=== PATIENT | male | born 1945 | race Caucasian/White ===

== ENCOUNTER → 2016-04-03 | Outpatient (CLI) | payer BC, MEDICARE ==
[~2016-04-03] MED LIST: ALLO300T2 GT; ALLO300T2 PO; CETI10CA PO; CHOL200041 PO; FLUT12AE4 IH; FLUT16SP22 NS; LACT1CAP72 PO; LEVO500T80 PO; LISI-556 PO; LISI5TAB14 PO; LOSA25TA21 PO; MV,M1TAB4 PO; OMEG1CAP51 PO; PRAV40TA PO; PRAV40TA2 PO; PRD20T PO; RT-ALBUINH IH; VITA-37 PO
--- OUTSIDE RECORDS SUMMARY | 2016-04-03 12:05 | XMS REPORT | Continuity of Care Document ---
Author Author [facility] Organization [facility] Address Unknown Phone Unavailable Care Team Providers Care Merchandise Clerk Name Role Phone EARLENE THOMAS MD PCP Insurance Providers Payer Name Policy Number Subscriber Name Relationship [facility] [id number] Farshad Solis 18 Self / Same As Patient s Medicare [id number] Farshad Solis 18 Self / Same As Patient Advance Directives Directive Response Recorded Date/Time Advance Directives Yes 08/22/14 8:45am Health Care Power of Journalism Instructor No 08/22/14 8:45am Organ Donor Yes 08/22/14 8:45am Resuscitation Status Full Code 08/22/14 8:45am Problems No known problems or medical conditions. Medications Medication Dose Route Sig Days/Qty Instructions Order Date Discontinued Date Status Allopurinol 300 Mg GT DAILY 08/22/14 Active Lisinopril (Lisinopril 5mg) 5 Mg PO TWICE A DAY 08/22/14 Active Pravastatin Sodium 40 Mg PO DAILY 08/22/14 Active Docosahexanoic Acid/Epa Unknown Dose PO DAILY 08/22/14 Active Vitamin B Complex 1 Tab PO DAILY 08/22/14 Active Cholecalciferol (Vitamin D3) 2,000 Unit PO DAILY 08/22/14 Active Cetirizine Hcl 10 Mg PO NEEDED 08/22/14 Active Social History Social History Problem Response Recorded Date/Time Recent Foreign Travel No 08/22/2014 8:54am Smoking Status Never a Smoker 08/22/2014 8:41am Do you dip or chew tobacco? No 08/22/2014 8:41am Query Response Start Date Stop Date Smoking Status Never a Smoker Hospital Discharge Instructions No hospital discharge instructions. Plan of Care No plan of care. Functional Status No functional status results. Allergies, Adverse Reactions, Alerts Allergen Type Severity Reaction Status Last Updated Penicillins ([id number]) Allergy Mild RASH Active 12/18/08 Immunizations Name Given Type Date of Pneumonia Vaccine 11/22/12 Historical Date of Influenza Vaccine 03/24/13 Historical Vital Signs Acute Vital Signs Vital Response Date/Time Temperature (Fahrenheit) 97.0 degrees F (97.6 - 99.5) Temperature (Calculated Celsius) 36.65852 degrees C (36.4 - 37.5) Temperature Source Tympanic Pulse Rate (adult) 55 bpm (60 - 90) Respiratory Rate 20 bpm (12 - 24) O2 Sat by Pulse Oximetry 98 % (88 - 100) Blood Pressure 144/87 mm Hg Pain Pain Intensity 0 Height (Feet) 5 feet Height (Inches) 10.00 inches Height (Calculated Centimeters) 177.951069 cm Weight (Pounds) 260 pounds Weight (Calculated Grams) 264386.017 gm Weight (Calculated Kilograms) 117.102905 kilograms Calculated BMI 37.30 Results No known relevant diagnostic tests, laboratory data and/or discharge summary. Procedures Procedure Status Date Provider(s) Diagnostic colonoscopy completed 08/22/14 CHETAN WRIGHT MD Encounters Encounter Location Date/Time Registered Surgical Day Care [facility] 08/22/14 7:05am Registered Clinic [facility] 08/17/14 1:49pm
--- NOTE | 2016-04-03 12:41 | Diagnostic Imaging Report ---
INDICATION: Cough and shortness of breath for one week. Comparison study: Chest from December 26. Findings: A frontal and lateral view of the chest demonstrates the lungs to be clear. The heart, mediastinum and pulmonary vascularity are normal. Anterior osteophytes are seen within the thoracic spine. IMPRESSION: There are no acute findings. Dictated by: Dictated on workstation # [id number]
== END ==
LOC: RAD 12:01
PROVIDERS: ATTEND Nurse Practitioner Family
DX: R05 Cough (principal); R06.02 Shortness of breath
CPT/HCPCS: 71020

== ENCOUNTER 2016-05-09 11:31 | Inpatient (IN) | payer BC, MEDICARE ==
[~2016-05-09] VITALS: Ht 177.8 cm; Wt 114.9 kg
[~2016-05-09 11:31] MED LIST changes: -ALLO300T2 PO; -FLUT12AE4 IH; -FLUT16SP22 NS; -LACT1CAP72 PO; -LEVO500T80 PO; -LISI-556 PO; -LOSA25TA21 PO; -MV,M1TAB4 PO; -PRAV40TA2 PO; -PRD20T PO; -RT-ALBUINH IH
--- NOTE | 2016-05-09 11:34 | History & Physicial ---
History of Present Illness History of Present Illness Reason for visit/HPI PT ADMITTED TO THE HOSPITAL FROM CLINIC FOR DIAGNOSIS OF DYSPNEA, HYPOXEMIA WITH AN OXYGEN LEVEL OF 84% IN CLINIC AND RECURRENT PNEUMONIA WITH AT LEAST TWO RECURRENCES OF PNEUMONIA. PT REPORTS UNCONTROLLED SHORTNESS OF BREATH. Date of Admission I consulted on this patient on 05/09/16 11:33 Attending Physician Earlene Camacho MD Admitting Physician Earlene Camacho MD Consult Allergies and Home Medications Allergies Coded Allergies: meperidine (Verified Allergy, Severe, 05/09/16) Penicillins (Unverified Allergy, Mild, RASH, 12/18/08) NATO Inhibitors (Verified Adverse Reaction, Unknown, 05/09/16) COUGH ibuprofen (Unverified Adverse Reaction, Unknown, 05/09/16) Pt states Dr. Pulido told him not to take Ibuprofen after he had kidney removed d/t Cancer Home Medications Albuterol Sulfate 1 Puff Puff #1 2 PUFF IH Q4H 1 PUFF = 90 MCG Prescribed by: EARLENE CAMACHO on 05/12/161821 Allopurinol 300 Mg Tablet 300 MG PO DAILY (Reported) Cetirizine Hcl 10 Mg Capsule 10 MG PO DAILY (Reported) Cholecalciferol (Vitamin D3) 2,000 Unit Tablet 2,000 UNIT PO DAILY (Reported) Docosahexanoic Acid/Epa Unknown Strength Capsule 2,000 MG PO DAILY (Reported) TAKES 2 (1000MG) CAPSULES Fluticasone Propionate 16 Gm E[place].susp 1 SPRAY NS DAILY PRN PRN CONGESTION ( Reported) Fluticasone/Salmeterol 12 Gm Hfa.aer.ad #1 2 PUFF IH BID@08,20 Prescribed by: EARLENE CAMACHO on 05/12/161821 Lactobacillus Combo No.10 1 Each Capsule #30 1 EACH PO TID Prescribed by: EARLENE CAMACHO on 05/12/161821 Levofloxacin 500 Mg Tablet #4 500 MG PO DAILY Prescribed by: EARLENE CAMACHO on 05/12/161816 Losartan Potassium 25 Mg Tablet #30 12.5 MG PO DAILY Prescribed by: EARLENE CAMACHO on 05/12/161816 Mv,Minerals/FA/Lycopene/Ginkgo 1 Each Tablet 1 TAB PO DAILY (Reported) Pravastatin Sodium 40 Mg Tablet 40 MG PO HS (Reported) Prednisone 20 Mg Tab #22 20 MG PO DAILY Take 3 tabs(60mg)daily,decrease by 1/2 tab(10mg)every other day. Prescribed by: EARLENE CAMACHO on 05/12/161816 Vitamin B Complex 1 Tab Tablet 1 TAB PO DAILY (Reported) Past Coyyqes-Hyuduw-Huwszg Hx Patient Social History Marrital Status: Living Status: LIVES AT HOME WITH SPOUSE Employed/Student: employed Alcohol Use: Denies Use Smoking Status: Never a Smoker 2nd Hand Smoke Exposure: No Physical Abuse Screen: No Sexual Abuse: No Recent Foreign Travel: No Contact w/other who traveled: No Recent Hopitalizations: No Recent Infectious Disease Expo: No Immunizations Up To Date Date of Pneumonia Vaccine: Nov 22, 2012 Date of Influenza Vaccine: Mar 24, 2013 Seasonal Allergies Seasonal Allergies: No Surgeries HX Surgeries: Yes Respiratory Hx Respiratory Disorders: No Cardiovascular Hx Cardiovascular Disorders: No Cardiac Disorders: Hypertension Neurological Hx Neurological Disorders: No Reproductive System Hx Reproductive Disorders: No Genitourinary Hx Genitourinary Disorders: Yes Gastrointestinal Hx Gastrointestinal Disorders: No Musculoskeletal Hx Musculoskeletal Disorders: Yes Musculoskeletal Disorders: Arthritis Endocrine Hx Endocrine Disorders: No HEENT HX ENT Disorders: No Psychosocial Hx Psychiatric Problems: No Integumentary HX Skin/Integumentary Disorder: Yes Blood Transfusions Hx Blood Disorders: No Reviewed Nursing Assessment Reviewed/Agree w Nursing PMH: Yes Family Medical History Significant Family History: Heart Disease, Cancer, Hypertension Constitutional: No chills, No dizziness, fever malaise weakness EENTM: No hoarseness, No throat pain Respiratory: cough dyspnea on exertion short of breath Cardiovascular: No chest pain, No palpitations Gastrointestinal: No abdominal pain, No constipation Genitourinary: no symptoms reported Musculoskeletal: No back pain, No joint pain Skin: no symptoms reported Psychiatric/Neurological: Denies Anxiety, Denies Depressed All Other Systems Reviewed Negative Unless Noted: Yes Physical Exam Vital Signs Vital Sign - Last 12Hours 05/09/16 05/09/16 11:40 13:29 Temp 97.5 Pulse 76 Resp 20 B/P 148/87 Pulse Ox 91 O2 Delivery Room Air O2 Flow Rate 2.00 Capillary Refill : General Appearance: WD/WN Mild Distress Eyes: Bilateral Eye EOMI, Bilateral Eye Normal Inspection, Bilateral Eye PERRL HEENT: PERRL/EOMI Pharynx Normal Neck: Full Range of Motion Supple Respiratory: Chest Non Tender Crackles Decreased Breath Sounds Expiration Wheezing Cardiovascular: Regular Rate, Rhythm No Edema Gastrointestinal: Normal Bowel Sounds No Organomegaly No Pulsatile Mass Non Tender Soft Rectal: Deferred Extremity: Normal Capillary Refill Normal Inspection Normal Range of Motion Non Tender No Calf Tenderness No Pedal Edema Neurologic/Psychiatric: Alert Oriented x3 No Motor/Sensory Deficits Normal Mood/Affect Skin: Normal Color Warm/Dry Lymphatic: No Adenopathy Assessment/Plan Assessment and Plan PNEUMONIA COUGH HYPOXEMIA HYPERTENSION NATO-INHIBITOR INDUCED COUGH PT ADMITTED WITH HYPOXEMIA - STARTED ON OXYGEN, CONTINUE WITH PNEUMONIA PROTOCOL , BREATHING TREATMENTS, MUCINEX. HYPOXEMIA - MONITOR SYMPTOMS.CONTINUE WITH OXYGEN HTN - STOP NATO-INHIBITOR - START ON LOSARTAN Admission Diagnosis PNEUMONIA COUGH HYPOXEMIA HYPERTENSION NATO-INHIBITOR INDUCED COUGH EARLENE CAMACHO MD May 09, 2016 11:34
[2016-05-09 11:40] VITALS: BP 148/87
[2016-05-09] MEDS ORDERED: RT-ADVAIR HFA 115/21 MCG PER PUFF IH SCH (11:45)
--- OUTSIDE RECORDS SUMMARY | 2016-05-09 11:54 | XMS REPORT | Continuity of Care Document ---
Author Author [facility] Organization [facility] Address Unknown Phone Unavailable Care Team Providers Care Lens Dotter Name Role Phone EARLENE THOMAS MD PCP Insurance Providers Payer Name Policy Number Subscriber Name Relationship [facility] [id number] Farshad Solis 18 Self / Same As Patient s Medicare [id number] Farshad Solis 18 Self / Same As Patient Advance Directives Directive Response Recorded Date/Time Advance Directives Yes 08/22/14 8:45am Health Care Power of Corporate Safety Coordinator No 08/22/14 8:45am Organ Donor Yes 08/22/14 [...] Type Severity Reaction Status Last Updated Penicillins ([id number]) Allergy Mild RASH Active 12/18/08 Immunizations Name Given Type Date of Pneumonia Vaccine 11/22/12 Historical Date of Influenza Vaccine 03/24/13 Historical Vital Signs Acute Vital Signs Vital Response Date/Time Temperature (Fahrenheit) 97.0 degrees F (97.6 - 99.5) Temperature (Calculated Celsius) 36.76815 degrees C (36.4 - 37.5) Temperature Source Tympanic Pulse Rate (adult) 55 bpm (60 - 90) Respiratory Rate 20 bpm (12 - 24) O2 Sat by Pulse Oximetry 98 % (88 - 100) Blood Pressure 144/87 mm Hg Pain Pain Intensity 0 Height (Feet) 5 feet Height (Inches) 10.00 inches Height (Calculated Centimeters) 177.156804 cm Weight (Pounds) 260 pounds Weight (Calculated Grams) 508645.017 gm Weight (Calculated Kilograms) 117.108786 kilograms Calculated BMI 37.30 Results No known relevant diagnostic tests, laboratory data and/or discharge summary. Procedures Procedure Status Date Provider(s) Diagnostic colonoscopy completed 08/22/14 CHETAN WRIGHT MD Encounters Encounter Location Date/Time Registered Surgical Day Care [facility] 08/22/14 7:05am Registered Clinic [facility] 08/17/14 1:49pm
[2016-05-09] MEDS ORDERED: methylPREDNISolone 125 MG (Solu-MEDROL) VIAL IM NR (11:57)
[2016-05-09] MEDS ORDERED: LISI-556 PO (12:44)
[2016-05-09] MEDS ORDERED: PRAV40TA2 PO (12:44)
[2016-05-09] MEDS ORDERED: ALLO300T2 PO (12:44)
[2016-05-09] MEDS ORDERED: MV,M1TAB4 PO (13:10)
[2016-05-09] MEDS ORDERED: FLUT16SP22 NS (13:10)
[2016-05-09] MEDS: LEVOFLOXACIN 750 MG/150 ML IV 150 ML IV SCH (13:13)
[2016-05-09 13:18] LABS: BASOPHILS # (AUTO) 0.1 10^3/uL (0.0-0.1); BASOPHILS % (AUTO) 1 % (0-10); EOSINOPHILS # (AUTO) 0.5 10^3/uL (0.0-0.3); EOSINOPHILS % (AUTO) 6 % (0-10); LYMPHOCYTES # (AUTO) 2.2 X 10^3 (1.0-4.0); LYMPHOCYTES % (AUTO) 24 % (12-44); MEAN CORPUSCULAR HEMOGLOBIN 32 PG (25-34); MEAN CORPUSCULAR HGB CONC 34 G/DL (32-36); MEAN CORPUSCULAR VOLUME 93 FL (80-99); MEAN PLATELET VOLUME 11.7 FL (7.4-10.4); MONOCYTES # (AUTO) 0.6 X 10^3 (0.0-1.0); MONOCYTES % (AUTO) 6 % (0-12); NEUTROPHILS % (AUTO) 64 % (42-75); PLATELET COUNT 166 10^3/uL (130-400); RED BLOOD COUNT 4.71 10^6/uL (4.35-5.85); RED CELL DISTRIBUTION WIDTH 13.9 % (10.0-14.5); WHITE BLOOD COUNT 9.4 10^3/uL (4.3-11.0)
[2016-05-09 13:33] LABS: ALBUMIN 4.3 G/DL (3.2-4.5); BILIRUBIN,TOTAL 0.4 MG/DL (0.1-1.0); CALCIUM 9.8 MG/DL (8.5-10.1); CREATININE SERUM 1.36 MG/DL (0.60-1.30); POTASSIUM 5.2 MMOL/L (3.6-5.0); TOTAL PROTEIN 7.9 G/DL (6.4-8.2)
--- NOTE | 2016-05-09 13:56 | Diagnostic Imaging Report ---
INDICATION: Difficulty breathing past week. Comparison with 04/03/2016. FINDINGS: The lungs are well-aerated. There is no air trapping. There are no infiltrates. Heart is not enlarged. No hilar adenopathy. No pulmonary edema. No pneumothorax or pleural effusions. No bony abnormalities. IMPRESSION: Normal PA and lateral chest. No significant change since previous exam. Dictated by: Dictated on workstation # [id number]
[2016-05-09] MEDS ORDERED: RT-ALBUTEROL/IPRATROPIUM 3 ML (DUONEB) VIAL INH PRN (14:15)
[2016-05-09] MEDS: RT-ADVAIR HFA 115/21 MCG PER PUFF IH SCH ×2 (15:04→20:12)
[2016-05-09 15:30] VITALS: BP 133/78
[2016-05-09] MEDS: NS IV 1000 ML 1,000 ML IV SCH (17:30)
[2016-05-09] MEDS: methylPREDNISolone 125 MG (Solu-MEDROL) VIAL IVP SCH ×2 (17:30→23:49)
[2016-05-09 19:55] VITALS: BP 161/77
[2016-05-09] MEDS: RT-ALBUTEROL/IPRATROPIUM 3 ML (DUONEB) VIAL INH SCH (20:11)
[2016-05-09] MEDS: CEFEPIME INJECTION 2,000 MG in NS (IVPB) 50 ML IV SCH (20:23)
[2016-05-10] VITALS: BP 141/65
[2016-05-10] MEDS: NS IV 1000 ML 1,000 ML IV SCH ×4 (01:00→21:05)
[2016-05-10 04:00] VITALS: BP 129/59
[2016-05-10 04:31] LABS: MEAN PLATELET VOLUME 12.4 FL (7.4-10.4); RED BLOOD COUNT 4.38 10^6/uL (4.35-5.85); RED CELL DISTRIBUTION WIDTH 13.7 % (10.0-14.5); WHITE BLOOD COUNT 8.2 10^3/uL (4.3-11.0)
[2016-05-10 04:49] LABS: CALCIUM 9.1 MG/DL (8.5-10.1); CREATININE SERUM 1.36 MG/DL (0.60-1.30); POTASSIUM 5.3 MMOL/L (3.6-5.0)
[2016-05-10] MEDS: methylPREDNISolone 125 MG (Solu-MEDROL) VIAL IVP SCH ×3 (05:25→17:27)
[2016-05-10] MEDS: RT-ADVAIR HFA 115/21 MCG PER PUFF IH SCH ×2 (07:59→19:51)
[2016-05-10] MEDS: RT-ALBUTEROL/IPRATROPIUM 3 ML (DUONEB) VIAL INH SCH ×3 (07:59→19:50)
[2016-05-10 08:13] VITALS: BP 138/63
--- NOTE | 2016-05-10 08:25 | Diagnostic Imaging Report ---
INDICATION: Pneumonia and cough with a history of prostate and renal carcinoma. Comparison made with prior examination of 05/09/2016. FINDINGS: The heart size is normal. Mediastinum is unremarkable. There is no pleural effusion, pneumothorax, or pneumonia. IMPRESSION: No acute cardiopulmonary abnormality. Dictated by: Dictated on workstation # [id number]
--- NOTE | 2016-05-10 09:11 | Progress Note (SOAP) ---
Subjective Subjective/Events-last exam patient complaining of coughing, congestion, shortness of breath, weakness, and spitting up green phlegm. Patient has been treated outpatient for 2 weeks. Patient got worse. Patient failure to outpatient treatment. Lungs has congestion on the right side more than the left. Patient clinically with pneumonia Objective Exam Vital Signs Date Time Temp Pulse Resp B/P Pulse Ox O2 Delivery O2 Flow Rate FiO2 05/10/16 08:13 97.9 86 18 138/63 94 Nasal Cannula 2.00 05/10/16 08:01 95 2.00 05/10/16 04:00 96.4 74 20 129/59 95 Nasal Cannula 2.00 05/10/16 00:00 96.4 78 20 141/65 95 Nasal Cannula 2.00 05/09/16 21:20 94 Nasal Cannula 2.00 05/09/16 20:12 94 2.00 05/09/16 19:55 96.6 80 18 161/77 94 Nasal Cannula 2.00 05/09/16 15:30 95.9 91 18 133/78 94 Room Air 05/09/16 15:04 95 2.00 05/09/16 14:10 95 05/09/16 13:29 95 Nasal Cannula 2.00 05/09/16 11:40 97.5 76 20 148/87 91 Room Air I & O 05/10/16 07:00 Intake Total 3700 ml Output Total 3075 ml Balance 625 ml Capillary Refill : General Appearance: No Apparent Distress WD/WN HEENT: Normal ENT Inspection Neck: Normal Inspection Respiratory: Other (congestion) Cardiovascular: Regular Rate, Rhythm Results Lab Laboratory Tests 05/09/16 12:48: Alanine Aminotransferase (ALT/SGPT) 27, Albumin 4.3, Alkaline Phosphatase 74, Anion Gap 8, Aspartate Amino Transf (AST/SGOT) 28, BUN/Creatinine Ratio 15, Basophils # (Auto) 0.1, Basophils (%) (Auto) 1, Blood Urea Nitrogen 21H, Calcium Level 9.8, Carbon Dioxide Level 27, Chloride Level 103, Creatinine 1.36H , Eosinophils # (Auto) 0.5H, Eosinophils (%) (Auto) 6, Estimat Glomerular Filtration Rate 52, Glucose Level 94, Hematocrit 44, Hemoglobin 15.1, Lactic Acid Level 1.2, Lymphocytes # (Auto) 2.2, Lymphocytes (%) (Auto) 24, Mean Corpuscular Hemoglobin 32, Mean Corpuscular Hemoglobin Concent 34, Mean Corpuscular Volume 93, Mean Platelet Volume 11.7H, Monocytes # (Auto) 0.6, Monocytes (%) (Auto) 6, Neutrophils # (Auto) 6.0, Neutrophils (%) (Auto) 64, Platelet Count 166, Potassium Level 5.2H, Red Blood Count 4.71, Red Cell Distribution Width 13.9, Sodium Level 138, Total Bilirubin 0.4, Total Protein 7.9, White Blood Count 9.4 05/10/16 03:46: Anion Gap 13, BUN/Creatinine Ratio 19, Blood Urea Nitrogen 26H, Calcium Level 9.1, Carbon Dioxide Level 19L, Chloride Level 104, Creatinine 1.36H, Estimat Glomerular Filtration Rate 52, Glucose Level 152H, Potassium Level 5.3H, Sodium Level 136 05/10/16 03:56: Hematocrit 41, Hemoglobin 14.1, Mean Corpuscular Hemoglobin 32, Mean Corpuscular Hemoglobin Concent 35, Mean Corpuscular Volume 93, Mean Platelet Volume 12.4H, Platelet Count 159, Red Blood Count 4.38, Red Cell Distribution Width 13.7, White Blood Count 8.2 Microbiology 05/09/16 Gram Stain - Final, Resulted 05/09/16 Sputum Culture - Preliminary, Resulted Usual/normal sherrie isolated. Assessment/Plan Assessment/Plan Assess & Plan/Chief Complaint pneumonia. Short of breath. Bronchitis Diagnosis/Problems: Clinical Quality Measures DVT/VTE Risk/Contraindication: Risk Factor Score Per Nursin RFS Level Per Nursing on Admit: 3=High JIN FONTANEZ DO May 10, 2016 09:11
[2016-05-10] MEDS: LOSARTAN 25 MG (COZAAR) TAB PO SCH (09:23)
[2016-05-10] MEDS: ENOXAPARIN 40 MG/0.4 ML (LOVENOX) SYR SC SCH (09:24)
[2016-05-10] MEDS: CEFEPIME INJECTION 2,000 MG in NS (IVPB) 50 ML IV SCH ×2 (09:24→20:08)
--- NOTE | 2016-05-10 09:30 | Diagnostic Imaging Report ---
PROCEDURE: CT chest without contrast. TECHNIQUE: Multiple contiguous axial images were obtained through the chest without the use of intravenous contrast. INDICATION: Shortness of breath and cough. History of prostate and kidney cancer. Comparison is made with prior examination from 01/07/13. FINDINGS: There are no discrete pulmonary nodules, masses or infiltrates. There is no pleural or pericardial fluid. There is no pneumothorax. The heart size is normal. There is no pathologically enlarged adenopathy in the chest. There is minimal coronary artery calcification. There are degenerative changes in the spine. The right kidney is surgically absent. There are stones in the gallbladder. Remainder of the intra-abdominal structures are unremarkable. IMPRESSION: Mild coronary artery calcifications. Cholelithiasis. Degenerative changes in the spine. Otherwise unremarkable CT chest Dictated by: Dictated on workstation # [id number]
[2016-05-10] MEDS: OMEGA 3 (FISH OIL) 1000 MG CAP PO SCH (09:37)
[2016-05-10] MEDS: LEVOFLOXACIN 750 MG/150 ML IV 150 ML IV SCH (12:13)
[2016-05-10 12:56] VITALS: BP 158/72
[2016-05-10] MEDS: FLUTICASONE NASAL SPRAY (FLONASE) 16 GM BTL NS PRN (14:02)
[2016-05-10] MEDS ORDERED: HYDROcodone/APAP 5 MG/325 MG (LORTAB) TAB PO PRN (14:45)
[2016-05-10 16:00] VITALS: BP 145/69
[2016-05-10 20:00] VITALS: BP 159/70
[2016-05-10] MEDS: SIMvastatin 20 MG (ZOCOR) TAB PO SCH (20:08)
[2016-05-10] MEDS ORDERED: lisINopril 5 MG (PRINIVIL) TABLET PO SCH (21:00)
[2016-05-11] VITALS: BP 121/57
[2016-05-11] MEDS: NS IV 1000 ML 1,000 ML IV SCH ×3 (04:58→23:19)
[2016-05-11 05:17] LABS: MEAN PLATELET VOLUME 12.2 FL (7.4-10.4); RED BLOOD COUNT 4.13 10^6/uL (4.35-5.85); RED CELL DISTRIBUTION WIDTH 14.3 % (10.0-14.5); WHITE BLOOD COUNT 18.6 10^3/uL (4.3-11.0)
[2016-05-11 05:34] LABS: CALCIUM 8.6 MG/DL (8.5-10.1); CREATININE SERUM 1.4 MG/DL (0.60-1.30); POTASSIUM 5.2 MMOL/L (3.6-5.0)
[2016-05-11] MEDS: methylPREDNISolone 125 MG (Solu-MEDROL) VIAL IVP SCH ×5 (06:19→23:20)
[2016-05-11 08:07] VITALS: BP 135/67
[2016-05-11] MEDS: CEFEPIME INJECTION 2,000 MG in NS (IVPB) 50 ML IV SCH ×2 (08:31→20:40)
[2016-05-11] MEDS: VITAMIN D3 1,000 UNITS (CHOLECALCIFEROL) TABLET PO SCH (08:32)
[2016-05-11] MEDS: LOSARTAN 25 MG (COZAAR) TAB PO SCH (08:32)
[2016-05-11] MEDS: OMEGA 3 (FISH OIL) 1000 MG CAP PO SCH (08:32)
[2016-05-11] MEDS: ALLOPURINOL 300 MG (ZYLOPRIM) TAB PO SCH (08:32)
[2016-05-11] MEDS: ENOXAPARIN 40 MG/0.4 ML (LOVENOX) SYR SC SCH (08:33)
--- NOTE | 2016-05-11 09:07 | Progress Note (SOAP) ---
Subjective Subjective/Events-last exam patient feeling better today. Spitting up yellow stuff instead of brain. Chest pain with coughing is less. CAT scan of chest shows no pneumonia. Bronchitis. CAT scan shows gallstones. Lung congestion is improving Objective Exam Vital Signs Date Time Temp Pulse Resp B/P Pulse Ox O2 Delivery O2 Flow Rate FiO2 05/11/16 08:07 97.8 93 22 135/67 95 Nasal Cannula 2.00 05/11/16 07:40 Nasal Cannula 2.00 05/11/16 07:01 2.00 05/11/16 00:00 97.9 88 20 121/57 94 Nasal Cannula 2.00 05/10/16 21:00 94 Nasal Cannula 2.00 05/10/16 20:00 97.7 112 20 159/70 99 Nasal Cannula 2.00 05/10/16 19:56 96 2.00 05/10/16 19:51 99 2.00 05/10/16 16:00 96.9 92 20 145/69 95 Nasal Cannula 2.00 05/10/16 14:13 96 2.00 05/10/16 12:56 98.6 108 20 158/72 96 Nasal Cannula 2.00 I & O 05/11/16 07:00 Intake Total 5130 ml Output Total 3000 ml Balance 2130 ml Capillary Refill : Less Than 3 Seconds General Appearance: No Apparent Distress WD/WN HEENT: Normal ENT Inspection Neck: Full Range of Motion Normal Inspection Respiratory: Chest Non Tender No Accessory Muscle Use No Respiratory Distress Other (congestion improving) Cardiovascular: Regular Rate, Rhythm Other (has melanoma) Gastrointestinal: non tender soft Results Lab Laboratory Tests 05/11/16 04:21 Laboratory Tests 05/11/16 04:21: Anion Gap 9, BUN/Creatinine Ratio 19, Blood Urea Nitrogen 26H, Calcium Level 8.6 , Carbon Dioxide Level 19L, Chloride Level 111H, Creatinine 1.40H, Estimat Glomerular Filtration Rate 50, Glucose Level 147H, Hematocrit 39L, Hemoglobin 13.2L, Mean Corpuscular Hemoglobin 32, Mean Corpuscular Hemoglobin Concent 34, Mean Corpuscular Volume 95, Mean Platelet Volume 12.2H, Platelet Count 152, Potassium Level 5.2H, Red Blood Count 4.13L, Red Cell Distribution Width 14.3, Sodium Level 139, White Blood Count 18.6H Microbiology 05/09/16 Blood Culture - Preliminary, Resulted No growth 05/09/16 Gram Stain - Final, Resulted 05/09/16 Sputum Culture - Preliminary, Resulted Usual/normal sherrie isolated. Assessment/Plan Assessment/Plan Assess & Plan/Chief Complaint pneumonia. Short of breath. Bronchitis. . To see where 05/11/16. Bronchitis. Short of breath. Gallstones. Patient in the right direction. White blood cell count 18,000 due to Solu-Medrol Diagnosis/Problems: Clinical Quality Measures DVT/VTE Risk/Contraindication: Risk Factor Score Per Nursin RFS Level Per Nursing on Admit: 3=High JIN FONTANEZ DO May 11, 2016 09:06
[2016-05-11] MEDS: RT-ALBUTEROL/IPRATROPIUM 3 ML (DUONEB) VIAL INH SCH ×3 (11:16→20:12)
[2016-05-11] MEDS: RT-ADVAIR HFA 115/21 MCG PER PUFF IH SCH ×2 (11:16→20:12)
[2016-05-11] MEDS: LEVOFLOXACIN 750 MG/150 ML IV 150 ML IV SCH (12:52)
[2016-05-11] MEDS: FLUTICASONE NASAL SPRAY (FLONASE) 16 GM BTL NS PRN (15:48)
[2016-05-11 16:29] VITALS: BP 146/63
[2016-05-11] MEDS: SIMvastatin 20 MG (ZOCOR) TAB PO SCH (20:40)
[2016-05-12] VITALS: BP 115/70
[2016-05-12 04:50] LABS: BASOPHILS % (AUTO) 0 % (0-10); EOSINOPHILS % (AUTO) 0 % (0-10); LYMPHOCYTES # (AUTO) 1.2 X 10^3 (1.0-4.0); LYMPHOCYTES % (AUTO) 6 % (12-44); MEAN CORPUSCULAR HEMOGLOBIN 32 PG (25-34); MEAN CORPUSCULAR HGB CONC 34 G/DL (32-36); MEAN CORPUSCULAR VOLUME 95 FL (80-99); MEAN PLATELET VOLUME 12.6 FL (7.4-10.4); MONOCYTES # (AUTO) 0.3 X 10^3 (0.0-1.0); MONOCYTES % (AUTO) 1 % (0-12); NEUTROPHILS # (AUTO) 17.8 X 10^3 (1.8-7.8); NEUTROPHILS % (AUTO) 92 % (42-75); PLATELET COUNT 167 10^3/uL (130-400); RED BLOOD COUNT 4.28 10^6/uL (4.35-5.85); RED CELL DISTRIBUTION WIDTH 14.5 % (10.0-14.5); WHITE BLOOD COUNT 19.2 10^3/uL (4.3-11.0)
[2016-05-12] MEDS: methylPREDNISolone 125 MG (Solu-MEDROL) VIAL IVP SCH ×3 (05:07→17:21)
[2016-05-12 05:11] LABS: CALCIUM 8.3 MG/DL (8.5-10.1); CREATININE SERUM 1.38 MG/DL (0.60-1.30); POTASSIUM 4.3 MMOL/L (3.6-5.0)
[2016-05-12 05:17] LABS: BAND NEUTROPHILS 6 %; LYMPHOCYTES % (MANUAL) 5 %; NEUTROPHILS % (MANUAL) 88 %
[2016-05-12] MEDS: NS IV 1000 ML 1,000 ML IV SCH ×2 (07:49→17:48)
[2016-05-12] MEDS: ALLOPURINOL 300 MG (ZYLOPRIM) TAB PO SCH (07:50)
[2016-05-12] MEDS: ENOXAPARIN 40 MG/0.4 ML (LOVENOX) SYR SC SCH (07:50)
[2016-05-12] MEDS: OMEGA 3 (FISH OIL) 1000 MG CAP PO SCH (07:50)
[2016-05-12] MEDS: CEFEPIME INJECTION 2,000 MG in NS (IVPB) 50 ML IV SCH (07:50)
[2016-05-12] MEDS: VITAMIN D3 1,000 UNITS (CHOLECALCIFEROL) TABLET PO SCH (07:51)
[2016-05-12] MEDS: LOSARTAN 25 MG (COZAAR) TAB PO SCH (07:51)
[2016-05-12 08:00] VITALS: BP 123/61
[2016-05-12] MEDS: RT-ALBUTEROL/IPRATROPIUM 3 ML (DUONEB) VIAL INH SCH ×2 (08:17→13:32)
[2016-05-12] MEDS: RT-ADVAIR HFA 115/21 MCG PER PUFF IH SCH (08:23)
[2016-05-12] MEDS ORDERED: CATHETER FLUSH 10 ML SYR IV PRN (11:15)
[2016-05-12] MEDS: LEVOFLOXACIN 750 MG/150 ML IV 150 ML IV SCH (12:22)
[2016-05-12 16:29] VITALS: BP 161/70
[2016-05-12] MEDS: FLUTICASONE NASAL SPRAY (FLONASE) 16 GM BTL NS PRN (17:22)
--- NOTE | 2016-05-12 18:13 | Discharge Summary ---
Diagnosis/Chief Complaint Date of Admission May 09, 2016 at 11:50 Date of Discharge Discharge Date: May 12, 2016 Admission Diagnosis Admission Diagnosis PNEUMONIA COUGH HYPOXEMIA HYPERTENSION NATO-INHIBITOR INDUCED COUGH Discharge Diagnosis PNEUMONIA - HAEMOPHILUS INFLUENZAE COUGH HYPOXEMIA HYPERTENSION NATO-INHIBITOR INDUCED COUGH Reason Hospital Visit PT WAS ADMITTED TO THE HOSPITAL WITH DYSPNEA, HYPOXEMIA- AFTER TWO RECURRENT PNEUMONIA EPISODES. Discharge Summary Discharge Physical Examination Allergies: Coded Allergies: meperidine (Verified Allergy, Severe, 05/09/16) Penicillins (Unverified Allergy, Mild, RASH, 12/18/08) NATO Inhibitors (Verified Adverse Reaction, Unknown, 05/09/16) COUGH ibuprofen (Unverified Adverse Reaction, Unknown, 05/09/16) Pt states Dr. Pulido told him not to take Ibuprofen after he had kidney removed d/t Cancer Vitals & I&Os Vital Signs Date Time Temp Pulse Resp B/P Pulse Ox O2 Delivery O2 Flow Rate FiO2 05/12/16 18:37 05/12/16 16:29 98.4 80 16 95 Room Air 05/12/16 00:00 2.00 General Appearance: Alert, Oriented X3, Cooperative, No Acute Distress HEENT: Atraumatic, PERRLA Respiratory: Clear to Auscultation Cardiovascular: Regular Rate Abdominal: Normal Bowel Sounds, Soft, No Tenderness Extremities: No Clubbing Skin: No Rashes Neuro: Normal Gait, Strength at 5/5 X4 Ext, Cranial Nerves 3-12 NL Psych/Mental Status: Mental Status NL, Mood NL Hospital Course PNEUMONIA COUGH HYPOXEMIA HYPERTENSION NATO-INHIBITOR INDUCED COUGH PT ADMITTED WITH HYPOXEMIA - STARTED ON OXYGEN, CONTINUED WITH PNEUMONIA PROTOCOL, BREATHING TREATMENTS, MUCINEX. HAEMOPHILUS INFLUENZAE POSITIVE - CONTINUE WITH 4 DAYS OF LEVAQUIN OUTPATIENT. HYPOXEMIA - RESOLVED - PT OFF OF OXYGEN ON DISCHARGE HTN - STOP NATO-INHIBITOR - START ON LOSARTAN OUTPATIENT. Discharge Instructions to patient/family Please see electonic discharge instructions given to patient. Discharge Medications Reviewed and agree with Discharge Medication list on patient's Discharge Instruction sheet Clinical Quality Measures DVT/VTE Risk/Contraindication: Risk Factor Score Per Nursin RFS Level Per Nursing on Admit: 3=High EARLENE THOMAS MD May 12, 2016 18:13
[2016-05-12] MEDS ORDERED: PRD20T PO (18:17)
[2016-05-12] MEDS ORDERED: LOSA25TA21 PO (18:17)
[2016-05-12] MEDS ORDERED: LEVO500T80 PO (18:17)
[2016-05-12] MEDS ORDERED: RT-ALBUINH IH (18:22)
[2016-05-12] MEDS ORDERED: FLUT12AE4 IH (18:22)
[2016-05-12] MEDS ORDERED: LACT1CAP72 PO (18:22)
--- NOTE | 2016-05-12 18:22 | Discharge Inst-Complex ---
PDI Med Rec & Follow Up Appt. New Medications: Albuterol Sulfate (Proair Hfa) 1 Puff Puff 2 PUFF IH Q4H 1 PUFF = 90 MCG #1 INHALER Lactobacillus Combo No.10 (Probiotic) 1 Each Capsule 1 EACH PO TID #30 CAP Levofloxacin (Levofloxacin) 500 Mg Tablet 500 MG PO DAILY #4 TAB Prednisone (Prednisone) 20 Mg Tab 20 MG PO DAILY Take 3 tabs(60mg)daily,decrease by 1/2 tab(10mg)every other day. #22 TAB Fluticasone/Salmeterol (Advair Hfa 115-21 Mcg Inhaler) 12 Gm Hfa.aer.ad 2 PUFF IH BID@08,20 #1 GM Losartan Potassium (Losartan Potassium) 25 Mg Tablet 12.5 MG PO DAILY #30 Ref 3 TAB Continued Medications: Allopurinol (Allopurinol) 300 Mg Tablet 300 MG PO DAILY TAB Cetirizine Hcl (Zyrtec) 10 Mg Capsule 10 MG PO DAILY CAP Cholecalciferol (Vitamin D3) (D3 Dots) 2,000 Unit Tablet 2000 UNIT PO DAILY TAB Docosahexanoic Acid/Epa (Fish Oil 1,000 Mg Softgel) Unknown Strength Capsule 2000 MG PO DAILY TAKES 2 (1000MG) CAPSULES CAP Fluticasone Propionate (Fluticasone Propionate) 16 Gm [place].susp 1 SPRAY NS DAILY PRN CONGESTION EA Mv,Minerals/FA/Lycopene/Ginkgo (One Daily Men's 50+ Tablet) 1 Each Tablet 1 TAB PO DAILY TAB Pravastatin Sodium (Pravastatin Sodium) 40 Mg Tablet 40 MG PO HS TAB Vitamin B Complex (B Complete) 1 Tab Tablet 1 TAB PO DAILY TAB Discontinued Medications: Lisinopril (Lisinopril) 5 Mg Tablet 5 MG PO BID TAB Patient Instructions: follow up appt on 05/20/16 @3pm start on a probiotic three times a day like [employer] to help prevent diarrhea while on the antibiotic drink 16 ounces of water when taking antibiotic Activity, Diet and PDI Resume Normal Activity: Yes (do not go back to work until released by dr. bhatti) Discharge Diet: Regular Diet Diet for 24 Hours: No One [place] Foods, No Spicy Foods Drink 6-8 Glasses of Fluid/Day: Yes Return to The Hospital For: any concern for worsening symptoms - Symptoms to Reoprt to : Fever Over 101 Degrees F, Pain/Pressure in Chest, Pain/Pressure in Shoulder, Diarrhea(Persistant), Shortness of Breath EARLENE BHATTI MD May 12, 2016 18:20
== END 2016-05-12 18:37 | disposition home or self-care (01) | DRG 195 ==
LOC: 4TH 11:50
PROVIDERS: ADMIT Family Medicine; ATTEND Family Medicine
DX: J18.9 Pneumonia, unspecified organism (principal); R09.02 Hypoxemia; J40 Bronchitis, not specified as acute or chronic; K80.20 Calculus of gallbladder without cholecystitis without obstruction; I10 Essential (primary) hypertension; M19.90 Unspecified osteoarthritis, unspecified site; R05 Cough
CPT/HCPCS: 36415; 71020; 71250; 80048; 80053; 83605; 85007; 85025; 85027; 87040; 87070; 87077; 87205; 94640; 94664; 94760

== ENCOUNTER → 2016-07-10 | Outpatient (CLI) | payer BC, MEDICARE ==
[~2016-07-10] MED LIST changes: +ALLO300T2 PO; +FLUT12AE4 IH; +FLUT16SP22 NS; +LACT1CAP72 PO; +LEVO500T80 PO; +LISI-556 PO; +LOSA25TA21 PO; +MV,M1TAB4 PO; +PRAV40TA2 PO; +PRD20T PO; +RT-ALBUINH IH
--- NOTE | 2016-07-11 10:56 | ECHOCARDIOGRAPHY REPORT ---
DATE OF SERVICE: 07/10/2016 PROCEDURE: Two-dimensional echocardiogram. REFERRING PHYSICIAN: Dr. Camacho. MEASUREMENT: LVID end diastolic 4.7, IVS thickness 1.0, LVPW thickness 1.0, left atrial diameter 3.8, ejection fraction 60%. FINDINGS: 1. Technical quality is good. 2. The left ventricle is normal in size with normal contractility. Systolic function appeared to be normal. Estimated ejection fraction 60%. 3. The left atrium is normal in size. No clots or thrombus were seen within the left atrium. 4. The right atrium and right ventricle are normal in size. No clots or thrombus were seen within the right side. 5. The mitral valve is calcified with mild mitral regurgitation noted by color Doppler flow. No mitral valve prolapse. No mitral valve stenosis. 6. The aortic valve is heavily calcified. Doppler across the aortic valve estimated the peak gradient of 47 mmHg, mean gradient of 25 mmHg, calculated valve area of 1.3-1.8 sq cm, which is mild to moderate aortic valve stenosis. Color Doppler flow across the aortic valve showed moderate aortic regurgitation. 7. The tricuspid valve is normal in morphology with mild tricuspid regurgitation noted by color Doppler flow. Doppler across the tricuspid valve estimates pulmonary artery pressure of 20 plus right atrial pressure. 8. The pulmonic valve is functioning normally. 9. No pericardial effusion. CONCLUSION: 1. Normal left ventricular size and systolic function. Estimated ejection fraction 60%. 2. Mild to moderate aortic valve stenosis, moderate aortic regurgitation. Slight deterioration compared to the study of May 2015. 3. Mild mitral and tricuspid regurgitation. 4. Estimated pulmonary artery pressure of 30 mmHg. Job ID: [id number] DocumentID: [id number] Dictated Date: 07/10/2016 18:57:32 Flight Steward Date: 07/11/2016 09:52:28 Dictated By: HELLEN MUNSON MD
== END ==
LOC: CARD 11:20
PROVIDERS: ATTEND Internal Medicine Cardiovascular Disease
DX: I35.0 Nonrheumatic aortic (valve) stenosis (principal); I10 Essential (primary) hypertension; E78.2 Mixed hyperlipidemia; I34.0 Nonrheumatic mitral (valve) insufficiency
CPT/HCPCS: 93306

== ENCOUNTER 2018-08-30 19:29 | Emergency (ER) | payer MEDICARE, OTHER ==
[~2018-08-30] VITALS: Ht 177.8 cm; Wt 114.8 kg
[~2018-08-30 19:29] MED LIST changes: -LOSA25TA21 PO; +LOSA25TA41 PO
[2018-08-30] MEDS ORDERED: NS IV 1000 ML 1,000 ML IV ONE (19:47)
[2018-08-30 19:54] LABS: BASOPHILS % (AUTO) 0 % (0-10); EOSINOPHILS # (AUTO) 0.1 10^3/uL (0.0-0.3); EOSINOPHILS % (AUTO) 0 % (0-10); HEMATOCRIT 42 % (40-54); HEMOGLOBIN 14.5 G/DL (13.3-17.7); LYMPHOCYTES # (AUTO) 1.6 X 10^3 (1.0-4.0); LYMPHOCYTES % (AUTO) 11 % (12-44); MEAN CORPUSCULAR HEMOGLOBIN 33 PG (25-34); MEAN CORPUSCULAR HGB CONC 34 G/DL (32-36); MEAN CORPUSCULAR VOLUME 96 FL (80-99); MONOCYTES # (AUTO) 0.9 X 10^3 (0.0-1.0); MONOCYTES % (AUTO) 6 % (0-12); NEUTROPHILS # (AUTO) 12.5 X 10^3 (1.8-7.8); NEUTROPHILS % (AUTO) 83 % (42-75); PLATELET COUNT 136 10^3/uL (130-400); RED CELL DISTRIBUTION WIDTH 13.9 % (10.0-14.5)
[2018-08-30] MEDS ORDERED: fentaNYL INJECTION 100 MCG/2 ML AMP IVP STA (20:01)
[2018-08-30 20:06] LABS: ALBUMIN 4.2 GM/DL (3.2-4.5); BILIRUBIN,TOTAL 0.5 MG/DL (0.1-1.0); CALCIUM 9.4 MG/DL (8.5-10.1); CREATININE SERUM 1.42 MG/DL (0.60-1.30); POTASSIUM 4.2 MMOL/L (3.6-5.0); TOTAL PROTEIN 7.8 GM/DL (6.4-8.2)
[2018-08-30 20:08] LABS: BILIRUBIN,URINE NEGATIVE (NEGATIVE); CLARITY,URINE MUCOUS; COLOR,URINE YELLOW; GLUCOSE, URINE (UA) NEGATIVE (NEGATIVE); KETONES,URINE NEGATIVE (NEGATIVE); LEUKOCYTE ESTERASE ,URINE 1+ (NEGATIVE); NITRITE,URINE NEGATIVE (NEGATIVE); PH,URINE 6 (5-9); PROTEIN,URINE 3+ (NEGATIVE); UROBILINOGEN,URINE NORMAL (NORMAL)
--- NOTE | 2018-08-30 20:10 | ED GU-Male ---
General Chief Complaint: - Urinary Stated Complaint: LOWER BACK/L LOWER ABD PAIN/BLOOD IN URINE Nursing Triage Note: noticed blood in his urine last night, but resolved, states today he had increasing pain and dribbling when trying to void. Source: patient Exam Limitations: no limitations History of Present Illness Date Seen by Provider: Aug 30, 2018 Time Seen by Provider: 19:47 Initial Comments PT ARRIVES VIA POV FROM HOME STATES YESTERDAY AM HE WOKE UP AND HAD SHARP PAIN IN LEFT GROIN AND PENIS AREA, AND HAD BLOOD AND A COUPLE OF SMALL CLOTS OF BLOOD ON URINATION URINE HAS CLEARED UP SINCE THEN, BUT STILL HAVING URGENCY AND FREQUENCY, AND SMALL AMOUNTS PAIN RADIATES TO LEFT FLANK AND IS INTERMITTENT SYMPTOMS WERE BETTER , THEN THE PAIN STARTED COMING BACK AGAIN 1 1/2 HOURS AGO. PAIN IS WORSE WITH MOVEMENT NO FEVE NO NAUSEA/VOMITING NO HISTORY OF SIMILAR HAS NOT TAKEN ANYTHING FOR PAIN PT HAS HAD A RIGHT NEPHRECTOMY IN 2008 FOR RENAL CANCER, NO CHEMO OR RADIATION HAS BEEN TOLD TO AVOID IBUPROFEN AND NSAIDS DUE TO THIS. PCP: DR. THOMAS UROLOGIST: DR. WEAVER Allergies and Home Medications Allergies Coded Allergies: meperidine (Verified Allergy, Severe, 05/09/16) Penicillins (Unverified Allergy, Mild, RASH, 12/18/08) NATO Inhibitors (Verified Adverse Reaction, Unknown, 05/09/16) COUGH ibuprofen (Unverified Adverse Reaction, Unknown, 05/09/16) Pt states Dr. Weaver told him not to take Ibuprofen after he had kidney removed d/t Cancer Home Medications Albuterol Sulfate 1 Puff Puff, 2 PUFF IH Q4H 1 PUFF = 90 MCG Prescribed by: EARLENE THOMAS on 05/12/161821 Allopurinol 300 Mg Tablet, 300 MG PO DAILY, (Reported) Cefdinir 300 Mg Capsule, 300 MG PO BID Prescribed by: KELLY APONTE on 08/30/182058 Cetirizine Hcl 10 Mg Capsule, 10 MG PO DAILY, (Reported) Cholecalciferol (Vitamin D3) 2,000 Unit Tablet, 2,000 UNIT PO DAILY, (Reported) Docosahexanoic Acid/Epa Unknown Strength Capsule, 2,000 MG PO DAILY, (Reported) TAKES 2 (1000MG) CAPSULES Fluticasone Propionate 16 Gm [place].susp, 1 SPRAY NS DAILY PRN for CONGESTION, (Reported) Fluticasone/Salmeterol 12 Gm Hfa.aer.ad, 2 PUFF IH BID@ Prescribed by: EARLENE THOMAS on 05/12/161821 Hydrocodone Bit/Acetaminophen 1 Tab Tab, 1-2 EACH PO Q6H PRN for PAIN-MODERATE Prescribed by: KELLY APONTE on 08/30/182058 Lactobacillus Combo No.10 1 Each Capsule, 1 EACH PO TID Prescribed by: EARLENE THOMAS on 05/12/161821 Levofloxacin 500 Mg Tablet, 500 MG PO DAILY Prescribed by: EARLENE THOMAS on 05/12/161816 Losartan Potassium 25 Mg Tablet, 12.5 MG PO DAILY Prescribed by: EARLENE THOMAS on 05/12/161816 Mv,Minerals/FA/Lycopene/Ginkgo 1 Each Tablet, 1 TAB PO DAILY, (Reported) Pravastatin Sodium 40 Mg Tablet, 40 MG PO HS, (Reported) Prednisone 20 Mg Tab, 20 MG PO DAILY Take 3 tabs(60mg)daily,decrease by 1/2 tab(10mg)every other day. Prescribed by: EARLENE THOMAS on 05/12/161816 Vitamin B Complex 1 Tab Tablet, 1 TAB PO DAILY, (Reported) Patient Home Medication List Home Medication List Reviewed: Yes Review of Systems Review of Systems Constitutional: no symptoms reported Respiratory: no symptoms reported Cardiovascular: no symptoms reported Gastrointestinal: see HPI Genitourinary: see HPI Musculoskeletal: see HPI Skin: no symptoms reported Psychiatric/Neurological: No Symptoms Reported Endocrine: No Symptoms Reported Hematologic/Lymphatic: No Symptoms Reported Past Amhqzly-Eezluh-Zlirhd Hx Patient Social History Alcohol Use: Denies Use Recreational Drug Use: No Smoking Status: Former Smoker Type Used: Cigarettes Former Smoker, Quit: May 09, 1996 2nd Hand Smoke Exposure: No Recent Foreign Travel: No Contact w/Someone Who Travel: No Recent Infectious Disease Expo: No Recent Hopitalizations: No Immunizations Up To Date Date of Pneumonia Vaccine: Nov 15, 2015 Date of Influenza Vaccine: Nov 29, 2015 Seasonal Allergies Seasonal Allergies: No Past Medical History Surgeries: Yes (CYST FROM BACK & NECK; RIGHT NEPHRECTOMY 2008 FOR CANCER; hernia surg, back surg; COLONOSCOPY) Nephrectomy, Prostatectomy Respiratory: Yes Pneumonia, Sleep Apnea Currently Using CPAP: Yes Currently Using BIPAP: No Cardiac: Yes (SEES DR. MUNSON ANNUALLY FOR HEART MURMUR) Heart Murmur, Hypertension Neurological: No Reproductive Disorders: No Genitourinary: Yes (RENAL CANCER 2008--S/P RIGHT NEPHRECTOMY; PROSTATE CANCER 2002--S/P RADICAL PROSTATECTOMY) Gastrointestinal: Yes (hernia repair 2009; DIVERICULAR DISEASE AND GALLSTONES NOTED ON CT) Abdominal Hernia, Diverticulosis, Hiatal Hernia, Gall Bladder Disease Musculoskeletal: Yes (BACK SURGERY) Arthritis, Chronic Back Pain, Gout Endocrine: No HEENT: Yes Cataract Loss of Vision: Denies Hearing Impairment: Hard of Hearing Cancer: Yes Prostate, Kidney Did You Recieve Any Treatments: Yes (RADICAL PROSTATECTOMY 2002; RIGHT NEPHRECTOMY 2008) What Type of Treatment Did You: Surgical Intervention Psychosocial: No Integumentary: No Blood Disorders: No Adverse Reaction/Blood Tranf: No Family Medical History Heart Disease, Cancer, Hypertension Physical Exam Vital Signs Vital Signs - First Documented 08/30/18 19:37 Temp 98.4 Pulse 68 Resp 20 B/P (MAP) 172/89 (116) Pulse Ox 97 Capillary Refill : Less Than 3 Seconds Height, Weight, BMI Height: 5'10.00" Weight: 253lbs. 3.0oz. [id number]; 36.3 BMI Method:Stated General Appearance: no apparent distress, obese Cardiovascular: regular rate, rhythm, systolic murmur (06/19 MURMUR) Respiratory: normal breath sounds, no respiratory distress, no accessory muscle use Gastrointestinal: normal bowel sounds, soft, tenderness (MILD LLQ AND LEFT FLANK TENDERNESS) Back: CVA tenderness (L) Extremities: normal inspection, no pedal edema Neurologic/Psychiatric: endorsement clerk II-XII nml as tested, no motor/sensory deficits, alert, normal mood/affect, oriented x 3 Skin: normal color, warm/dry; No rash Progress/Results/Core Measures Suspected Sepsis Recent Fever Within 48 Hours: No Infection Criteria Present: None New/Unexplained Altered Menta: No Sepsis Screen: No Definite Risk SIRS Temperature:98.4 Pulse: 68 Respiratory Rate: 20 Laboratory Tests 08/30/18 19:40: White Blood Count 15.0H Blood Pressure 172 /89 Mean: 116 Laboratory Tests 08/30/18 19:40: Creatinine 1.42H, Platelet Count 136, Total Bilirubin 0.5 Results/Orders Lab Results Laboratory Tests Test 08/30/18 19:40 08/30/18 19:49 Range/Units White Blood Count 15.0 H 4.3-11.0 10^3/uL Red Blood Count 4.43 4.35-5.85 10^6/uL Hemoglobin 14.5 13.3-17.7 G/DL Hematocrit 42 40-54 % Mean Corpuscular Volume 96 80-99 FL Mean Corpuscular Hemoglobin 33 25-34 PG Mean Corpuscular Hemoglobin Concent 34 32-36 G/DL Red Cell Distribution Width 13.9 10.0-14.5 % Platelet Count 136 130-400 10^3/uL Mean Platelet Volume 12.0 H 7.4-10.4 FL Neutrophils (%) (Auto) 83 H 42-75 % Lymphocytes (%) (Auto) 11 L 12-44 % Monocytes (%) (Auto) 6 0-12 % Eosinophils (%) (Auto) 0 0-10 % Basophils (%) (Auto) 0 0-10 % Neutrophils # (Auto) 12.5 H 1.8-7.8 X 10^3 Lymphocytes # (Auto) 1.6 1.0-4.0 X 10^3 Monocytes # (Auto) 0.9 0.0-1.0 X 10^3 Eosinophils # (Auto) 0.1 0.0-0.3 10^3/uL Basophils # (Auto) 0.0 0.0-0.1 10^3/uL Neutrophils % (Manual) 80 % Lymphocytes % (Manual) 12 % Monocytes % (Manual) 5 % Eosinophils % (Manual) 0 % Basophils % (Manual) 0 % Band Neutrophils 3 % Blood Morphology Comment NORMAL Sodium Level 136 135-145 MMOL/L Potassium Level 4.2 3.6-5.0 MMOL/L Chloride Level 99 98-107 MMOL/L Carbon Dioxide Level 25 21-32 MMOL/L Anion Gap 12 5-14 MMOL/L Blood Urea Nitrogen 17 7-18 MG/DL Creatinine 1.42 H 0.60-1.30 MG/DL Estimat Glomerular Filtration Rate 49 BUN/Creatinine Ratio 12 Glucose Level 106 H 70-105 MG/DL Calcium Level 9.4 8.5-10.1 MG/DL Corrected Calcium 9.2 8.5-10.1 MG/DL Total Bilirubin 0.5 0.1-1.0 MG/DL Aspartate Amino Transf (AST/SGOT) 24 5-34 U/L Alanine Aminotransferase (ALT/SGPT) 24 0-55 U/L Alkaline Phosphatase 95 40-136 U/L Total Protein 7.8 6.4-8.2 GM/DL Albumin 4.2 3.2-4.5 GM/DL Amylase Level 35 25-125 U/L Lipase 19 8-78 U/L Urine Color YELLOW Urine Clarity MUCOUS Urine pH 6 5-9 Urine Specific [place] 1.010 L 1.016-1.022 Urine Protein 3+ H NEGATIVE Urine Glucose (UA) NEGATIVE NEGATIVE Urine Ketones NEGATIVE NEGATIVE Urine Nitrite NEGATIVE NEGATIVE Urine Bilirubin NEGATIVE NEGATIVE Urine Urobilinogen NORMAL NORMAL MG/DL Urine Leukocyte Esterase 1+ H NEGATIVE Urine RBC (Auto) 4+ H NEGATIVE Urine RBC TNTC H /HPF Urine WBC >100 H /HPF Urine Squamous Epithelial Cells NONE /HPF Urine Crystals NONE /LPF Urine Bacteria FEW H /HPF Urine Casts NONE /LPF Urine Mucus NEGATIVE /LPF Urine Culture Indicated YES My Orders Orders - KELLY APONTE DO Ct Abd/Pelvis Wo(Kidney Stone) (08/30/18 19:47) Amylase (08/30/18 19:47) Cbc With Automated Diff (08/30/18 19:47) Comprehensive Metabolic Panel (08/30/18 19:47) Lipase (08/30/18 19:47) Urinalysis (08/30/18 19:47) Acute Abd Series (08/30/18 19:47) Ed Iv/Invasive Line Start (08/30/18 19:47) Ed Iv/Invasive Line Start (08/30/18 19:47) Ns Iv 1000 Ml (Sodium Chloride 0.9%) (08/30/18 19:47) Manual Differential (08/30/18 19:40) Fentanyl Injection (Sublimaze Injection (08/30/18 20:01) Urine Culture (08/30/18 19:49) Ceftriaxone For Iv Use (Rocephin For I (08/30/18 21:00) Rx-Hydrocodone/Apap 5-325 Mg (Rx-Vicodin (08/30/18 21:00) Medications Given in ED Current Medications Medications Dose Ordered Sig/Linnea Route Start Time Stop Time Status Last Admin Dose Admin Sodium Chloride 1,000 ml @ 0 mls/hr Q0M ONCE IV 08/30/18 19:47 08/30/18 19:49 DC 08/30/18 20:08 1,000 MLS/HR Vital Signs/I&O 08/30/18 19:37 Temp 98.4 Pulse 68 Resp 20 B/P (MAP) 172/89 (116) Pulse Ox 97 Capillary Refill : Less Than 3 Seconds Blood Pressure Mean: 116 Progress Note : Progress Note SYMPTOMS MUCH IMPROVED AT DISMISSAL Diagnostic Imaging Comments ABDOMEN XRAYS--NO ACUTE PROCESS CT ABDOMEN/PELVIS--INDURATION LEFT URETER, NO CALCULI OR HYDRONEPHROSIS. + GALLSTONES, + DIVERTICULAR DISEASE. POST PROSTATECTOMY AND RIGHT NEPHRECTOMY--OTHERWISE NO ACUTE PROCESS PER RADIOLOGIST REPORTS AT 2049 Reviewed: Reviewed by Me Departure Impression Primary Impression: Urinary tract infection Additional Impression: Renal insufficiency Disposition: HOME, SELF-CARE Condition: Improved Departure-Patient Inst. Referrals: EARLENE THOMAS MD (PCP/Family) Primary Care Physician YANDEL WEAVER MD Patient Instructions: Urinary Tract Infection, Adult (DC) Add. Discharge Instructions: LOTS OF CLEAR LIQUIDS TAKE YOUR REGULAR MEDICATIONS PRESCRIBED FOLLOW UP WITH DR. WEAVER OR DR. THOMAS LATER THIS WEEK FOR FURTHER CARE All discharge instructions reviewed with patient and/or family. Voiced understanding. Scripts Hydrocodone Bit/Acetaminophen (Hydrocodone/Acetaminophen 5/325mg Tablet) 1 Tab Tab 1-2 EACH PO Q6H PRN for PAIN-MODERATE MDD 10 for 3 Days, #20 TAB Prov: KELLY APONTE DO 08/30/18 Cefdinir (Cefdinir) 300 Mg Capsule 300 MG PO BID for FOR INFECTION, #20 CAP Prov: KELLY APONTE DO 08/30/18 KELLY APONTE DO Aug 30, 2018 20:10
--- NOTE | 2018-08-30 20:15 | NUR ---
PATIENT RESTING QUIETLY CALL LIGHT IN REACH, DISCUSSED RADIOLOGY TESTS WHICH HAVE BEEN ORDERED. PATIENT AND DENY QUESTIONS AT THIS TIME. WILL CONTINUE TO MONITOR.
[2018-08-30 20:35] LABS: RBC,URINE TNTC /HPF; WBC,URINE >100 /HPF
[2018-08-30 20:36] LABS: BACTERIA,URINE FEW /HPF
--- NOTE | 2018-08-30 20:36 | Diagnostic Imaging Report ---
PROCEDURE: CT urinary tract, rule out kidney stone. TECHNIQUE: Multiple contiguous axial images were obtained through the abdomen and pelvis without the use of intravenous contrast. Auto Exposure Controls were utilized during the CT exam to meet ALARA standards for radiation dose reduction. INDICATION: Hematuria, pelvic pain. FINDINGS: The lung bases are clear. The liver appears normal. There are small calcified stones in the gallbladder. The common duct is not dilated. The pancreas appears normal. The spleen is not enlarged. Adrenals are normal. Right kidney is surgically absent. There are cortical cysts on the left kidney. There is no hydronephrosis. Urinary bladder is decompressed with mild wall thickening. Prostate is surgically absent. There is diverticulosis of the colon but no evidence of diverticulitis. The small bowel is not dilated. IMPRESSION: Postop changes of right nephrectomy. There is cholecystolithiasis. There is mild induration of the left ureter that could be due to some ureteritis. There are no calculi seen. The urinary bladder wall is slightly thickened and could be due to cystitis. Prostate is surgically absent. There is uncomplicated diverticulosis of the colon. Dictated by: Dictated on workstation # [id number]
--- NOTE | 2018-08-30 20:39 | Diagnostic Imaging Report ---
INDICATION: Hematuria PA chest, supine and upright abdominal images were obtained. Lungs are clear. There is no intraperitoneal free air. There are multiple surgical lakesha in the abdomen and pelvis. Bowel gas pattern is normal. IMPRESSION: Postsurgical changes in the abdomen. No acute abnormalities seen. Dictated by: Dictated on workstation # [id number]
[2018-08-30 20:41] LABS: BAND NEUTROPHILS 3 %; NEUTROPHILS % (MANUAL) 80 %
[2018-08-30 20:42] LABS: BASOPHILS % (MANUAL) 0 %; EOSINOPHILS % (MANUAL) 0 %; LYMPHOCYTES % (MANUAL) 12 %; MONOCYTES % (MANUAL) 5 %; RBC MORPH NORMAL
[2018-08-30] MEDS ORDERED: ACHD5005 PO (20:59)
[2018-08-30] MEDS ORDERED: CEFD300C3 PO (20:59)
[2018-08-30] MEDS ORDERED: cefTRIAXone FOR IV USE 1,000 MG in WATER (STERILE) FOR INJECTION 10 ML IV ONE (21:00)
[2018-08-30] MEDS ORDERED: RX-HYDROCODONE/APAP 5/325 MG #4 TAB PK PO PRN (21:00)
[2018-08-30] MEDS ORDERED: WATER (STERILE) FOR INJECTION 10 ML ONE (21:04)
[2018-08-30] MEDS ORDERED: cefTRIAXone 1,000 MG IV (ROCEPHIN) VIAL ONE (21:04)
[2018-08-30 21:16] VITALS: BP 159/84
== END 2018-08-30 21:22 | disposition home or self-care (01) ==
LOC: EDUNIT# 19:29 → ER 19:30
DX: N39.0 Urinary tract infection, site not specified (principal); N28.9 Disorder of kidney and ureter, unspecified; G47.30 Sleep apnea, unspecified; I10 Essential (primary) hypertension; M10.9 Gout, unspecified; Z98.890 Other specified postprocedural states; Z87.19 Personal history of other diseases of the digestive system; Z85.46 Personal history of malignant neoplasm of prostate; Z90.5 Acquired absence of kidney; Z88.8 Allergy status to other drugs, medicaments and biological substances; Z88.0 Allergy status to penicillin; Z88.6 Allergy status to analgesic agent; Z79.51 Long term (current) use of inhaled steroids; Z79.52 Long term (current) use of systemic steroids; Z87.891 Personal history of nicotine dependence; Z85.528 Personal history of other malignant neoplasm of kidney; Z90.79 Acquired absence of other genital organ(s); Z87.01 Personal history of pneumonia (recurrent)
CPT/HCPCS: 36415; 74022; 74176; 80053; 81000; 82150; 83690; 85007; 85027; 87077; 87088; 87186

== ENCOUNTER 2019-02-16 05:55 | Outpatient (CLI) | payer MEDICARE, OTHER ==
[~2019-02-16] VITALS: Ht 167.8 cm; Wt 121.4 kg
[~2019-02-16 05:55] MED LIST changes: +ACHD5005 PO; +CEFD300C3 PO
[2019-02-16] MEDS ORDERED: CHOL20003 PO (13:39)
[2019-02-16] MEDS ORDERED: CETI10TA4 PO (13:39)
[2019-02-16] MEDS ORDERED: VITA1CAP PO (13:39)
[2019-02-16] MEDS ORDERED: OMEG10005 PO (13:39)
[2019-02-16] MEDS ORDERED: METO-387 PO (13:39)
== END 2019-02-16 13:42 | disposition home or self-care (01) ==
LOC: PREOP 05:55
PROVIDERS: ATTEND Internal Medicine
DX: Z01.818 Encounter for other preprocedural examination (principal)

== ENCOUNTER → 2019-02-18 | Day surgery (SDC) | payer MEDICARE, OTHER ==
--- NOTE | 2019-02-16 04:23 | HISTORY AND PHYSICAL ---
DATE OF SERVICE: COLONOSCOPY HISTORY AND PHYSICAL HISTORY OF PRESENT ILLNESS: The patient is referred by Dr. Camacho for diagnostic colonoscopy due to a positive Cologuard stool test. I performed his last colonoscopy a little over 4 years ago in 2014, at which time he had no evidence for neoplasia. He reports that he has been feeling well. He has had no bowel habit changes, noted no melena or bright red blood per rectum. PAST MEDICAL HISTORY: Significant for right nephrectomy for renal cell carcinoma in 2008. He also is status post radical prostatectomy in 2002 with no evidence for recurrence. He has a history of hyperlipidemia, hypertension, gout, obstructive sleep apnea and obesity with no known history of cerebrovascular or cardiovascular disease. FAMILY HISTORY: He had one cousin who may have had colon cancer in his 60s. He is not aware of any first degree relatives with colon cancer. His mother did of pancreatic cancer at the age of 85. SOCIAL HISTORY: He has a [id number] smoking history, but quit in 1996 and reports no alcohol consumption since 1992. PAST SURGICAL HISTORY: Significant for right nephrectomy in 2008 and radical prostatectomy in 2002. REVIEW OF SYSTEMS: CONSTITUTIONAL: He denies night sweats, chills, fever or fatigue. CARDIOVASCULAR: He denies chest pain, dyspnea on exertion, syncope, presyncope or heart racing sensation. PULMONARY: Denies cough, wheezing, shortness of breath or dyspnea on exertion. GASTROINTESTINAL: As noted in the HPI. PHYSICAL EXAMINATION: GENERAL: Reveals a pleasant overweight white male in no acute distress. VITAL SIGNS: His weight is stable at 267 pounds compared to our last office weight over 4 years ago. Blood pressure 150/84. HEENT: Unremarkable. There is a Mallampati 2 pharyngeal configuration. No erythema noted. CHEST: Clear to auscultation. CARDIOVASCULAR: Reveals a regular rate and rhythm without murmur, S3 or S4. ABDOMEN: Soft, supple without mass, organomegaly or tenderness. EXTREMITIES: Reveal no cyanosis, clubbing or edema. ASSESSMENT AND PLAN: The patient was set up for diagnostic colonoscopy due to a positive Cologuard. Discussed positive test results indicative of no more than a 4% chance of actually finding colon cancer with a much higher chance of finding an advanced adenoma at 20% or non-advanced at 31% leaving 45% chance for a so-called false-positive study for which at this point do not know what the best recommendation for future surveillance is. We will discuss further after colonoscopy. I thank you for the referral. Job ID: [id number] DocumentID: [id number] Dictated Date: 02/14/2019 17:46:30 Real Estate Coordinator Date: 02/14/2019 18:23:22 Dictated By: CHETAN WRIGHT MD MTDD
[~2019-02-18] VITALS: Ht 177.8 cm; Wt 121.4 kg
[2019-02-18] VITALS (12 sets, daily range): BP systolic 142–174; BP diastolic 71–107
[~2019-02-18] MED LIST changes: +CETI10TA4 PO; +CHOL20003 PO; +D5 LR IV SOLUTION 1,000 ML IV ONE; +D5 LR IV SOLUTION 1,000 ML IV STA; +LIDOCAINE JELLY 2% 6 ML SYRINGE MM PRN; +LIDOCAINE JELLY 2% 6 ML SYRINGE ONE; +MIDAZOLAM 5 MG/5 ML (VERSED) VIAL IV PRN; +MIDAZOLAM 5 MG/5 ML (VERSED) VIAL ONE; +MTP25TSR PO; +OMEG10005 PO; +VITA1CAP PO; +fentaNYL INJECTION 100 MCG/2 ML AMP IVP ONE; +fentaNYL INJECTION 100 MCG/2 ML AMP ONE
--- NOTE | 2019-02-18 11:39 | Pre-Op Note & Conscious Sedat ---
Pre-Operative Progress Note H&P Reviewed The H&P was reviewed, patient examined and no changes noted. Date H&P Reviewed: Feb 18, 2019 Time H&P Reviewed: 10:15 Conscious Sedation Pre-Proced ASA Score 2 For ASA 3 and 4: Consider anesthesia and medical clearance. Also, for patients with a history of failed moderate sedation consider anesthesia. Airway Lungs Heart ASA score ASA 1: a normal healthy patient ASA 2: a patient with a mild systemic disease (mid diabetes, controlled hypertension, obesity ASA 3: a patient with a severe systemic disease that limits activity (angina, COPD, prior Myocardial infarction) ASA 4: a patient with an incapacitating disease that is a constant threat to life (CHF, renal failure) ASA 5: a moribund patient not expected to survive 24 hrs. (ruptured aneurysm) ASA 6: a declared brain- patient whose organs are being harvested. For emergent operations, add the letter E after the classification Mallampati Classification Grade 2 Sedation Plan Analgesia, Amnesia, Plan communicated to team members, Discussed options with patient/fam, Discussed risks with patient/fam The patient is an appropriate candidate to undergo the planned procedure, sedation, and anesthesia. The patient immediately re-assessed prior to indication. CHETAN WRIGHT MD Feb 18, 2019 11:39 POS
--- NOTE | 2019-02-18 22:07 | OPERATIVE REPORT ---
DATE OF SERVICE: COLONOSCOPY SUMMARY INDICATION FOR THE PROCEDURES: Diagnostic colonoscopy, positive Cologuard. DESCRIPTION OF PROCEDURE: The patient was placed in the left lateral decubitus position. Prior to undergoing colonoscopy, digital rectal evaluation was performed. Anal sphincter tone was normal and the perianal reflexes intact. The prostate is surgically absent. No other abnormalities were noted on digital inspection of anal canal or distal rectal vault. The colonoscope was then inserted into the rectum and under direct visualization advanced to the cecum. The cecum was identified by identification of ileocecal valve and cecal strap. Photographic documentation was obtained. Careful inspection was made as colonoscope withdrawn. The patient tolerated the procedure well. The quality of prep was good. FINDINGS: There was no evidence for internal or external hemorrhoids. The rectum was unremarkable. Mild to moderate diverticular disease with haustral hypertrophy was confined to the sigmoid colon. There was no endoscopic evidence to suggest underlying diverticulitis. The descending colon was unremarkable. Present in the mid transverse colon was a 1 cm polyp on a short broad based stalk with adenomatous features. No ulceration was noted. Photograph was obtained and then it was removed in its entirety via hot snare with minimal blood loss. The polyp was retrieved and submitted in its entirety. The remainder of the transverse colon and hepatic flexure were unremarkable. Another 1 cm similar polyp on a broad based stalk was noted in the proximal ascending colon. It was removed via hot snare as well and submitted for histopathology. Minimal blood loss was noted. The cecum and the colon were unremarkable. ASSESSMENT: Two 1 cm adenomatous appearing polyps were removed. The likely source of this patient's positive Cologuard. We will await histopathology report, but as long as no malignancy is identified. We will advocate repeat surveillance colonoscopy in one year. The patient had mild to moderate diverticular disease confined to the sigmoid colon. No other abnormalities noted in today's procedure. Job ID: [id number] DocumentID: [id number] Dictated Date: 02/18/2019 11:46:08 Segmental Paver Installer Date: 02/18/2019 22:06:48 Dictated By: CHETAN WRIGHT MD [facility] CENTERMirna
--- OUTSIDE RECORDS SUMMARY | 2019-03-16 12:28 | XMS REPORT | CCD ---
Author Author Farshad Camacho Organization Trina Camacho MD, [facility] Address [address] [place] [address] Phone Care Team Providers Care Physician Internist Name Role Phone PP Unavailable CCM Unavailable Summary Purpose Interface Exchange Insurance Providers Payer name Policy type / Coverage type Covered democrat ID Effective Begin Date Effective End Date WPS Medicare Part B Medicare Part B [id number] Unknown Cigna Medicare Part B 80 [id number] Unknown Family history Brother Diagnosis Age At Onset lung cancer Unknown Alcoholism Unknown Mother Diagnosis Age At Onset Cancer Unknown Pancratic cancer Unknown Arthritis Unknown Father Diagnosis Age At Onset Alcoholism Unknown Social History Social History Element Codes Description Effective Dates Marital status Unknown M alberto Rice 03/01/2014 Number of children Unknown 3 and 3 step 03/01/[address]: 7175784 Former smoker quit 1997 03/01/2014 Allergies, Adverse Reactions, Alerts Substance Reaction Codes Entered Date Inactivated Date Status Seasonal Unknown 03/01/2014 No In active Date Active NATO INHIBITORS Unknown 05/13/2016 No In active Date Active ibuprofen RxNorm: 5640 07/31/2014 No Inactive Date Active Penicillin hives Unknown 03/01/2014 No In active Date Active SULFA(SULFONAMIDE AN TIBIOTICS) Unknown 02/10/2018 No Inactive Date Active Past Medical History Illness Codes Condition Status Onset Date Resolved Date Acute bronchitis, un specified ICD-9: 466.0 ICD-10: J20.9 Active 11/16/2018 Unknown Cough ICD-9: 786.2 ICD-10: R05 Active 03/11/2018 Unknown Urinary tract infect ion, site not specified ICD-9: 599.0 ICD-10: N39.0 Active 09/02/2018 Unknown Cellulitis of right finger ICD-9: 681.00 ICD-10: L03.011 Active 06/21/2018 Unknown Essential (primary) hypertension ICD-9: 401.9 ICD-10: I10 Active 06/21/2018 Unknown Other allergic rhinitis ICD-9: 477.8 ICD-10: J30.89 Active 02/10/2018 Unknown Acute laryngopharyng itis ICD-9: 465.0 ICD-10: J06.0 Active 05/14/2018 Unknown Other acute sinusitis ICD-9: 461.8 ICD-10: J01.80 Active 02/10/2018 Unknown Encounter for genera l adult medical examination with abnormal findings ICD-9: V70.0 ICD-10: Z00.01 Active 06/24/2017 Unknown Aortic stenosis ICD-9: 424.1 Chronic 03/20/2014 Unknown Heart murmur ICD-9: 785.2 Chronic 03/01/2014 Unknown Sleep-disordered ananya athing ICD-9: 780.59 Chronic Unknown Essential (primary) hypertension ICD-9: 401.1 ICD-10: I10 Active 06/24/2016 Unknown Mixed hyperlipidemia ICD-9: 272.4 ICD-10: E78.2 Active 06/21/2015 Unknown Nonrheumatic aortic (valve) stenosis ICD-9: 424.1 ICD-10: I35.0 Active 12/23/2017 Unknown DIABETES TYPE II ICD-9: 250.00 Inactive 03/01/2014 Unknown Hyperlipidemia ICD-9: 272.4 Inactive 03/20/2014 Unknown Acute bronchitis due to other specified organisms ICD-9: 466.0 ICD-10: J20.8 Resolved 08/01/2015 Unknown Candidal stomatitis ICD- 9: 112.0 ICD-10: B37.0 Resolved 05/20/2016 Unknown Pneumonia, unspecifi ed organism ICD-9: 486 ICD-10: J18.9 Active 03/27/2016 Unknown Impaired fasting glu cose ICD-9: 790.21 ICD-10: R73.01 Active 06/21/2015 Unknown Encounter for screen ing fecal occult blood testing ICD-9: V76.51 Active 08/02/2014 Unknown PREVENTIVE PHYSICAL EXAM ICD-9: V70.0 Active 07/14 Unknown Hyperlipidemia Unknown Active 03/20/2014 Unknow n Diabetes Unknown Active 03/01/2014 Unknow n Hypertension Unknown Active 03/01/2014 Unknow n ESSENTIAL HYPERTENSION ICD-9: 401.9 Active 03/01/2014 Unknown Snoring ICD-9: 786.09 Active 03/01/2014 Unknow n Problems Condition Codes Effectiv e Dates Condition Status Acute bronchitis, un specified ICD-9: 466.0 ICD-10: J20.9 11/16/2018 Active Cough ICD-9: 786.2 ICD-10: R05 03/11/2018 Active Urinary tract infect ion, site not specified ICD-9: 599.0 ICD-10: N39.0 09/02/2018 Active Cellulitis of right finger ICD-9: 681.00 ICD-10: L03.011 06/21/2018 Active Essential (primary) hypertension ICD-9: 401.9 ICD-10: I10 06/21/2018 Active Other allergic rhinitis ICD-9: 477.8 ICD-10: J30.89 02/10/2018 Active Acute laryngopharyng itis ICD-9: 465.0 ICD-10: J06.0 05/14/2018 Active Other acute sinusitis ICD-9: 461.8 ICD-10: J01.80 02/10/2018 Active Encounter for [facility] adult medical examination with abnormal findings ICD-9: V70.0 ICD-10: Z00.01 06/24/2017 Active Aortic stenosis ICD-9: 424.1 03/20/2014 Chronic Heart murmur ICD-9: 785.2 03/01/2014 Chronic Sleep-disordered ananya athing ICD-9: 780.59 03/01/2014 Chronic Essential (primary) hypertension ICD-9: 401.1 ICD-10: I10 06/24/2016 Active Mixed hyperlipidemia ICD-9: 272.4 ICD-10: E78.2 06/21/2015 Active Nonrheumatic aortic (valve) stenosis ICD-9: 424.1 ICD-10: I35.0 12/23/2017 Active DIABETES TYPE II ICD-9: 250.00 03/01/2014 Inactive Hyperlipidemia ICD-9: 272.4 03/20/2014 Inactive Acute bronchitis due to other specified organisms ICD-9: 466.0 ICD-10: J20.8 08/01/2015 Resolved Candidal stomatitis ICD- 9: 112.0 ICD-10: B37.0 05/20/2016 Resolved Pneumonia, unspecifi ed organism ICD-9: 486 ICD-10: J18.9 03/27/2016 Active Impaired fasting glu cose ICD-9: 790.21 ICD-10: R73.01 06/21/2015 Active Encounter for screen ing fecal occult blood testing ICD-9: V76.51 08/02/2014 Active PREVENTIVE PHYSICAL EXAM ICD-9: V70.0 07/30/2014 Active Hyperlipidemia Unknown 03/20/2014 Active Diabetes Unknown 03/01/2014 Active Hypertension Unknown 03/01/2014 Active ESSENTIAL HYPERTENSION ICD-9: 401.9 03/01/2014 Active Snoring ICD-9: 786.09 03/01/2014 Active Medications Medication Codes Instruc tions Start Date Stop Date Sta tus Fill Instructions doxycycline hyclate 100 mg tablet RxNorm: 4854188 1 Tablet(s) PO BID 11/16/2018 11/22/2018 Active Kenalog 40 mg/mL [employer] pension for injection RxNorm: 5981943 1.5 Milliliter(s) In j 11/16/2018 11/16/2018 In active allopurinol 300 mg t ablet RxNorm: 981574 TAKE 1 TABLET BY MOUT H ONCE DAILY 09/02/2018 No Stop Date Active Kenalog 40 mg/mL [employer] pension for injection RxNorm: 5687578 Milliliter(s) Inj 06/21/2018 06/21/2018 In active doxycycline hyclate 100 mg tablet RxNorm: 0242480 1 Tablet(s) PO BID 06/21/2018 06/27/2018 Inactive Tamiflu 75 mg capsule RxNorm: 068630 1 Capsule(s) PO BID 05/14/2018 05/18/2018 Inactive Kenalog 40 mg/mL [employer] pension for injection RxNorm: 6855367 Milliliter(s) Inj 05/14/2018 05/14/2018 In active prednisone 10 mg tablet RxNorm: 874040 Tablet(s) PO UD 03/11/2018 06/20/2018 Inactive 60,50,40,30,20,10 Kenalog 40 mg/mL [employer] pension for injection RxNorm: 3362990 1 Milliliter(s) Inj 03/11/2018 03/11/2018 In active Keflex 500 mg capsule RxNorm: 903023 1 Capsule(s) PO TID 03/11/2018 03/20/2018 Inactive Symbicort 160 mcg-4. 5 mcg/actuation HFA aerosol inhaler RxNorm: 0977559 2 Puff(s) INH BID 02/10/2018 No Stop Date Active Keflex 500 mg capsule RxNorm: 165811 1 Capsule(s) PO TID 02/10/2018 02/19/2018 Inactive prednisone 10 mg tablet RxNorm: 170201 Tablet(s) PO UD start on 11/1902/10/2018 03/09/2018 Inactive 60,50,40,30,20,10 Advair Diskus 250 mc g-50 mcg/dose powder for inhalation RxNorm: 7724378 1 Puff(s) INH BID 12/29/2017 No Stop Date Active Zithromax Z-Poncho 250 mg tablet RxNorm: 917988 1 Tablet(s) PO UD 12/29/2017 01/02/2018 Inactive zpack Tessalon Perles 100 mg capsule RxNorm: 161603 1-2 Capsule(s) PO TID as needed 12/29/2017 01/02/2018 In active allopurinol 300 mg t ablet RxNorm: 689287 Tablet(s) TAKE ONE TA BLET BY MOUTH ONCE DAILY 12/10/2017 09/01/2018 Inactive Kenalog 40 mg/mL [employer] pension for injection RxNorm: 9480558 1.5 Milliliter(s) In j 12/03/2017 12/03/2017 In active allopurinol 300 mg t ablet RxNorm: 467925 TAKE ONE TABLET BY MO UTH ONCE DAILY 09/08/2017 12/09/2017 In active allopurinol 300 mg t ablet RxNorm: 835772 TAKE ONE TABLET BY MO UTH ONCE DAILY 06/15/2017 09/07/2017 In active Keflex 500 mg capsule RxNorm: 419015 1 Capsule(s) PO TID 05/04/2017 05/13/2017 Inactive Kenalog 40 mg/mL [employer] pension for injection RxNorm: 3238228 1 Milliliter(s) Inj 03/17/2017 03/17/2017 In active Keflex 500 mg capsule RxNorm: 392686 1 Capsule(s) PO TID 03/13/2017 03/12/2017 Inactive Keflex 500 mg capsule RxNorm: 332309 1 Capsule(s) PO TID 03/13/2017 03/22/2017 Inactive prednisone 10 mg tablet RxNorm: 780041 Tablet(s) PO UD start on 11/1911/18/2016 12/23/2016 Inactive 60,50,40,30,20,10 Advair Diskus 250 mc g-50 mcg/dose powder for inhalation RxNorm: 7098539 1 Puff(s) INH BID 11/18/2016 12/28/2017 Inactive doxycycline hyclate 100 mg capsule RxNorm: 5747838 1 Capsule(s) PO BID 11/18/2016 11/27/2016 In active Kenalog 40 mg/mL [employer] pension for injection RxNorm: 5025160 Milliliter(s) Inj 11/18/2016 11/18/2016 In active nystatin 100,000 uni t/mL oral suspension RxNorm: 372031 5 Milliliter(s) PO QI D 05/20/2016 05/29/2016 In active allopurinol 300 mg t ablet RxNorm: 943386 TAKE ONE TABLET BY [facility] ONCE DAILY 05/11/2016 05/05/2017 In active Tessalon Perles 100 mg capsule RxNorm: 123491 1-2 Capsule(s) PO TID as needed 04/29/2016 05/03/2016 In active Prilosec OTC 20 mg t ablet,delayed release RxNorm: 786717 Tablet(s) PO 04/28/2016 11/16/2016 In active doxycycline hyclate 100 mg capsule RxNorm: 3670585 1 Capsule(s) PO BID 04/28/2016 05/07/2016 In active Tamiflu 75 mg capsule RxNorm: 028152 1 Capsule(s) PO BID 04/07/2016 04/11/2016 Inactive Tamiflu 75 mg capsule RxNorm: 554214 1 Capsule(s) PO BID 04/07/2016 04/06/2016 Inactive prednisone 20 mg tablet RxNorm: 018965 1 Tablet(s) PO BID 04/04/2016 04/08/2016 Inactive Kenalog 40 mg/mL [employer] pension for injection RxNorm: 3440844 1 Milliliter(s) Inj 03/24/2016 03/24/2016 In active cefdinir 300 mg capsule RxNorm: 642228 1 Capsule(s) PO BID 03/24/2016 03/30/2016 Inactive Zithromax Z-Poncho 250 mg tablet RxNorm: 752357 1 Tablet(s) PO UD 03/24/2016 03/28/2016 Inactive zpack cefdinir 300 mg capsule RxNorm: 743265 1 Capsule(s) PO BID 03/24/2016 03/23/2016 Inactive Flonase Allergy Reli ef 50 mcg/actuation nasal spray,suspension RxNorm: 4144296 1 [place] NASAL BID 02/13/2016 No Stop Date Active doxycycline hyclate 100 mg capsule RxNorm: 5745774 1 Capsule(s) PO BID 02/13/2016 02/19/2016 In active lisinopril 5 mg tablet RxNorm: 777717 1 Tablet(s) PO BID TAKE ONE TABLET BY MO [facility] TWICE DAILY 11/20/2015 05/12/2016 Inactive hold until patient calls fo r refill doxycycline hyclate 100 mg capsule RxNorm: 6498311 1 Capsule(s) PO BID 08/02/2015 08/08/2015 In active Kenalog 40 mg/mL [employer] pension for injection RxNorm: 2840830 Milliliter(s) Inj 08/02/2015 08/02/2015 In active lisinopril 5 mg tablet RxNorm: 131707 TAKE ONE TABLET BY MOUTH TWICE DAILY 06/11/2015 11/19/2015 In active allopurinol 300 mg t ablet RxNorm: 822362 1 Tablet(s) PO daily 05/08/2015 05/01/2016 Inactive lisinopril 5 mg tablet RxNorm: 754653 1 Tablet(s) PO BID 01/30/2015 05/29/2015 Inactive [AttnRPh: Saving apply/adjudicate RxGRP:SG20 RxBIN:[id number] RxPCN: ID#:[id number]] Zithromax Z-Poncho 250 mg tablet RxNorm: 113514 1 Tablet(s) PO UD 01/10/2015 03/23/2016 Inactive zpack allopurinol 300 mg t ablet RxNorm: 720449 1 Tablet(s) PO daily 10/31/2014 04/28/2015 Inactive lisinopril 5 mg tablet RxNorm: 012984 1 Tablet(s) PO BID 07/31/2014 11/27/2014 Inactive [AttnRPh: Saving apply/adjudicate RxGRP:SG20 RxBIN:[id number] RxPCN:HT ID#:[id number]] allopurinol 300 mg t ablet RxNorm: 279237 1 Tablet(s) PO daily 05/17/2014 10/30/2014 Inactive lisinopril 5 mg tablet RxNorm: 378462 1 Tablet(s) PO BID 03/01/2014 06/28/2014 Inactive [SAVINGS FOR UNINSURED PATIENTS -- BIN:[id number], PCN: [id number], Group: [id number], ID# [id number], Process claim through [employer], for questions: . THIS IS NOT INSURANCE.] Fish Oil 1,000 mg ca psule RxNorm: 3 Capsule(s) PO daily No Start Date Active B Complex 1 oral RxNorm: 51911 oral No Start Date Active Vitamin D3 1,000 uni t capsule RxNorm: 685409 2 Capsule(s) PO daily No Start Date Active Zyrtec 10 mg capsule RxNorm: 9698711 1 Capsule(s) PO daily No Start Date Active fenofibrate nanocrys tallized 48 mg tablet RxNorm: 332434 1 Tablet(s) PO daily No Start Date Active metoprolol tartrate 25 mg tablet RxNorm: 400179 1 Tablet(s) PO daily No Start Date Active multivitamin tablet RxNorm: 1 Tablet(s) PO daily No Start Date Active pravastatin 40 mg ta blet RxNorm: 352657 1 Tablet(s) PO daily No Start Date Active Tessalon Perles 100 mg capsule RxNorm: 810713 1-2 Capsule(s) PO TID as needed No Start Date 04/28/2016 Inactive allopurinol 300 mg t ablet RxNorm: 995089 1 Tablet(s) PO daily No Start Date 05/16/2014 Inactive metformin 500 mg tablet RxNorm: 029805 1 Tablet(s) PO BID No Start Date 02/14/2014 Inactive pioglitazone 15 mg t ablet RxNorm: 986398 1 Tablet(s) PO daily No Start Date 07/30/2014 Inactive lisinopril 5 mg tablet RxNorm: 792670 1 Tablet(s) PO daily No Start Date 02/28/2014 Inactive losartan 25 mg tablet RxNorm: 777057 1/2 Tablet(s) PO daily No Start Date 01/12/2018 Inactive Zithromax Z-Poncho 250 mg tablet RxNorm: 225831 1 Tablet(s) PO UD No Start Date 01/09/2015 Inactive zpack Medication Administered Medication Codes Instruc tions Start Date Status Kenalog 40 mg/mL suspension for injection RxNorm: 6984075 1.5Milliliter 11/16/2018 No longer Active Kenalog 40 mg/mL suspension for injection RxNorm: 4651242 Milliliter 06/21/2018 No longer Active Kenalog 40 mg/mL suspension for injection RxNorm: 6250433 Milliliter 05/14/2018 No longer Active Kenalog 40 mg/mL suspension for injection RxNorm: 7087832 1Milliliter 03/11/2018 N o longer Active Kenalog 40 mg/mL suspension for injection RxNorm: 9798860 1.5Milliliter 12/03/2017 No longer Active Kenalog 40 mg/mL suspension for injection RxNorm: 3239143 1Milliliter 03/17/2017 N o longer Active Kenalog 40 mg/mL suspension for injection RxNorm: 3863197 Milliliter 11/18/2016 No longer Active Kenalog 40 mg/mL suspension for injection RxNorm: 9995764 1Milliliter 03/24/2016 N o longer Active Kenalog 40 mg/mL suspension for injection RxNorm: 6537084 Milliliter 08/02/2015 No longer Active Immunizations Vaccine Codes Date Status Influenza CVX: 141 12/18 completed Influenza CVX: 141 12/14 completed Pneumococcal CVX: 33 03/2012 completed Zoster CVX: 121 11/15/19 13 completed Assessments Condition Codes Effectiv e Dates Acute bronchitis, unspecified ICD-10 : J20.9 ICD-9: 466.0 11/16/2018 Cough ICD-10: R05 ICD-9: 786.2 11/16/2018 Urinary tract infection, site not specified ICD-10: N39.0 ICD-9: 599.0 09/02/2018 Other allergic rhinitis ICD-10: J30. 89 ICD-9: 477.8 06/21/2018 Cellulitis of right finger ICD-10: L 03.011 ICD-9: 681.00 06/21/2018 Essential (primary) hypertension ICD -10: I10 ICD-9: 401.9 06/21/2018 Acute laryngopharyngitis ICD-10: J06 .0 ICD-9: 465.0 05/14/2018 Other acute sinusitis ICD-10: J01.80 ICD-9: 461.8 03/11/2018 Encounter for general adult medical exam ination with abnormal findings ICD-10: Z00.01 ICD-9: V70.0 01/13/2018 Nonrheumatic aortic (valve) stenosis ICD-10: I35.0 ICD-9: 424.1 12/23/2017 Mixed hyperlipidemia ICD-10: E78.2 ICD-9: 272.4 12/23/2017 Essential (primary) hypertension ICD -10: I10 ICD-9: 401.1 12/23/2017 Acute bronchitis due to other specified organisms ICD-10: J20.8 ICD-9: 466.0 11/18/2016 Candidal stomatitis ICD-10: B37.0 ICD-9: 112.0 05/20/2016 Pneumonia, unspecified organism ICD- 10: J18.9 ICD-9: 486 05/09/2016 Impaired fasting glucose ICD-10: R73 .01 ICD-9: 790.21 06/22/2015 Encounter for screening fecal occult blood testing ICD-9: V76.51 08/03/2014 PREVENTIVE PHYSICAL EXAM ICD-9: V70.0 07/31/2014 Aortic stenosis ICD-9: 424.1 03/20/2014 ESSENTIAL HYPERTENSION ICD-9: 401.9 03/20/2014 Hyperlipidemia ICD-9: 272.4 03/20/2014 Heart murmur ICD-9: 785.2 03/01/2014 DIABETES TYPE II ICD-9: 250.00 03/01/2014 Snoring ICD-9: 786.09 Sleep-disordered breathing ICD-9: 780.59 03/01/2014 Reason For Visit Reason For Visit Effective Dates Notes cough 11/16/2018 Hospital Follow Up 09/02/2018 cough 06/21/2018 cough 05/14/2018 sinus congestion 03/11/2018 sinus congestion 02/10/2018 Annual Medicare Wellness Exam 01/13/2018 hypertension 12/23/2017 hypertension 06/24/2017 sinus congestion 03/17/2017 hypertension 12/24/2016 sinus congestion 11/18/2016 cough 06/24/2016 Hospital Follow Up 05/20/2016 cough 05/09/2016 cough 04/28/2016 cough 04/04/2016 cough 03/28/2016 sinus congestion 02/13/2016 cough 08/02/2015 hypertension 06/22/2015 hypertension 03/20/2014 hypertension 03/01/2014 Patient quit taking, last dose of metformin and actos was 3 weeks ago. Results Observation Observation Code Item Item Code Result Date Comp Metabolic Kqi927 NA 138 mEq/L 06/22/2018 Comp Metabolic Vmh376 K 4.3 mEq/L 06/22/2018 Comp Metabolic Gtr570 CL 102 mEq/L 06/22/2018 Comp Metabolic Lss082 CO2 29.0 mEq/L 06/22/2018 Comp Metabolic Nbz930 AN ION GAP 11 06/22/2018 Comp Metabolic Rlo648 GL UCOSE 89 mg/dL 06/22/2018 Comp Metabolic Twz027 Cr eat 1.3 mg/dL 06/22/2018 Comp Metabolic Rgh058 eG FR 59 ml/min/1.73m2 06/22 Comp Metabolic Xnv450 BUN 21 mg/dL 06/22/2018 Comp Metabolic Nns835 B/ C Ratio 16.4 Ratio 06/22/2018 Comp Metabolic Qqc425 CA LCIUM 8.8 mg/dL 06/22/2018 Comp Metabolic Rej501 AL K PHOS 70 U/L 06/22/2018 Comp Metabolic Lvj149 T(SGOT) 26 U/L 06/22/2018 Comp Metabolic Fds215 AL T(SGPT) 21 U/L 06/22/2018 Comp Metabolic Huo247 BI LI T 0.6 mg/dL 06/22/2018 Comp Metabolic Sor445 AL BUMIN 3.9 g/dL 06/22/2018 Comp Metabolic Ffw930 TP RO 6.7 g/dL 06/22/2018 Comp Metabolic Ebz524 GL OB 2.8 g/dL 06/22/2018 Comp Metabolic Wst192 A/ G Ratio 1.4 Ratio 06/22/2018 Comp Metabolic Hlf951 Os mo 278 mOsmo 06/22/2018 Cbc With Differential Ord2 WBC 7.48 K/ul 06/22/2018 Cbc With Differential Ord2 RBC 4.22 M/ul 06/22/2018 Cbc With Differential Ord2 HGB 13.8 g/dl 06/22/2018 Cbc With Differential Ord2 Neut% 66.7 % 06/22/2018 Cbc With Differential Ord2 HCT 41.5 % 06/22/2018 Cbc With Differential Ord2 Lymph% 19.9 % 06/22/2018 Cbc With Differential Ord2 MCV 98.3 fl 06/22/2018 Cbc With Differential Ord2 MCH 32.7 pg 06/22/2018 Cbc With Differential Ord2 [place]% 11.0 % 06/22/2018 Cbc With Differential Ord2 Eos% 2.3 % 06/22/2018 Cbc With Differential Ord2 MCHC 33.3 pg 06/22/2018 Cbc With Differential Ord2 PLT 134 K/ul 06/22/2018 Cbc With Differential Ord2 Baso% 0.1 % 06/22/2018 Cbc With Differential Ord2 RDW 13.8 % 06/22/2018 Cbc With Differential Ord2 Neut ABS# 4.99 K/ul 06/22/2018 Cbc With Differential Ord2 Lymph ABS# 1.49 K/ul 06/22/2018 Cbc With Differential Ord2 [place] ABS# 0.8 K/ul 06/22/2018 Cbc With Differential Ord2 Eos ABS# 0.2 K/ul 06/22/2018 Cbc With Differential Ord2 Baso ABS# 0.0 K/ul 06/22/2018 Lipid Ord30 CHOL 161 mg/dL 06/09/2018 Lipid Ord30 HDL 41.0 mg/dl 06/09/2018 Lipid Ord30 TRIG 122 mg/dL 06/09/2018 Lipid Ord30 LDL 96 mg/dL 06/09/2018 Lipid Ord30 C/HDL 3.9 Ratio 06/09/2018 Comp Metabolic Sfh977 NA 141 mEq/L 06/09/2018 Comp Metabolic Oya684 K 4.4 mEq/L 06/09/2018 Comp Metabolic Kyx989 CL 105 mEq/L 06/09/2018 Comp Metabolic Vpr979 CO2 27.0 mEq/L 06/09/2018 Comp Metabolic Uxp313 AN ION GAP 13 06/09/2018 Comp Metabolic Efq646 GL UCOSE 118 mg/dL 06/09/2018 Comp Metabolic Xlg503 Cr eat 1.4 mg/dL 06/09/2018 Comp Metabolic Gmw157 eG FR 54 ml/min/1.73m2 06/09 Comp Metabolic Zyh599 BUN 15 mg/dL 06/09/2018 Comp Metabolic Ivg813 B/ C Ratio 10.8 Ratio 06/09/2018 Comp Metabolic Xet710 CA LCIUM 9.0 mg/dL 06/09/2018 Comp Metabolic Euy153 AL K PHOS 77 U/L 06/09/2018 Comp Metabolic Nkg200 T(SGOT) 24 U/L 06/09/2018 Comp Metabolic Hub674 AL T(SGPT) 32 U/L 06/09/2018 Comp Metabolic Ljy214 BI LI T 0.6 mg/dL 06/09/2018 Comp Metabolic Sed356 AL BUMIN 4.0 g/dL 06/09/2018 Comp Metabolic Gaz614 TP RO 6.9 g/dL 06/09/2018 Comp Metabolic Otd482 GL OB 3.0 g/dL 06/09/2018 Comp Metabolic Qck589 A/ G Ratio 1.3 Ratio 06/09/2018 Comp Metabolic Qcm358 Os mo 283 mOsmo 06/09/2018 Comp Metabolic Whc773 NA 136 mEq/L 12/22/2017 Comp Metabolic Hba910 K 4.2 mEq/L 12/22/2017 Comp Metabolic Kqu103 CL 105 mEq/L 12/22/2017 Comp Metabolic Bwu392 CO2 30.0 mEq/L 12/22/2017 Comp Metabolic Lgs822 AN ION GAP 5 12/22/2017 Comp Metabolic Uwp076 GL UCOSE 85 mg/dL 12/22/2017 Comp Metabolic Ued962 Cr eat 1.2 mg/dL 12/22/2017 Comp Metabolic Kks773 eG FR 62 ml/min/1.73m2 12/22 Comp Metabolic Fzy941 BUN 17 mg/dL 12/22/2017 Comp Metabolic Ktc850 B/ C Ratio 13.9 Ratio 12/22/2017 Comp Metabolic Yeb221 CA LCIUM 9.3 mg/dL 12/22/2017 Comp Metabolic Ozu164 AL K PHOS 78 U/L 12/22/2017 Comp Metabolic Ibc870 T(SGOT) 24 U/L 12/22/2017 Comp Metabolic Mnw804 AL T(SGPT) 28 U/L 12/22/2017 Comp Metabolic Xkf078 BI LI T 0.5 mg/dL 12/22/2017 Comp Metabolic Urm274 AL BUMIN 4.0 g/dL 12/22/2017 Comp Metabolic Mit942 TP RO 6.6 g/dL 12/22/2017 Comp Metabolic Khw505 GL OB 2.6 g/dL 12/22/2017 Comp Metabolic Xvo542 A/ G Ratio 1.6 Ratio 12/22/2017 Comp Metabolic Qmy545 Os mo 273 mOsmo 12/22/2017 Cbc With Differential Ord2 WBC 8.88 K/ul 12/22/2017 Cbc With Differential Ord2 RBC 4.61 M/ul 12/22/2017 Cbc With Differential Ord2 HGB 14.7 g/dl 12/22/2017 Cbc With Differential Ord2 HCT 43.8 % 12/22/2017 Cbc With Differential Ord2 Neut% 68.4 % 12/22/2017 Cbc With Differential Ord2 MCV 95.0 fl 12/22/2017 Cbc With Differential Ord2 Lymph% 21.6 % 12/22/2017 Cbc With Differential Ord2 MCH 31.9 pg 12/22/2017 Cbc With Differential Ord2 [place]% 6.3 % 12/22/2017 Cbc With Differential Ord2 MCHC 33.6 pg 12/22/2017 Cbc With Differential Ord2 Eos% 3.5 % 12/22/2017 Cbc With Differential Ord2 Baso% 0.2 % 12/22/2017 Cbc With Differential Ord2 PLT 138 K/ul 12/22/2017 Cbc With Differential Ord2 RDW 14.7 % 12/22/2017 Cbc With Differential Ord2 Neut ABS# 6.07 K/ul 12/22/2017 Cbc With Differential Ord2 Lymph ABS# 1.92 K/ul 12/22/2017 Cbc With Differential Ord2 [place] ABS# 0.6 K/ul 12/22/2017 Cbc With Differential Ord2 Eos ABS# 0.3 K/ul 12/22/2017 Cbc With Differential Ord2 Baso ABS# 0.0 K/ul 12/22/2017 Comp Metabolic Zvx302 NA 135 mEq/L 06/22/2017 Comp Metabolic Qfz694 K 4.2 mEq/L 06/22/2017 Comp Metabolic Wdx010 CL 101 mEq/L 06/22/2017 Comp Metabolic Dqi004 CO2 27.0 mEq/L 06/22/2017 Comp Metabolic Ayn290 AN ION GAP 11 06/22/2017 Comp Metabolic Ile471 GL UCOSE 89 mg/dL 06/22/2017 Comp Metabolic Mvh606 Cr eat 1.5 mg/dL 06/22/2017 Comp Metabolic Xnk775 eG FR 51 ml/min/1.73m2 06/22 Comp Metabolic Rpx088 BUN 16 mg/dL 06/22/2017 Comp Metabolic Dqa311 B/ C Ratio 11.0 Ratio 06/22/2017 Comp Metabolic Uwq330 CA LCIUM 8.9 mg/dL 06/22/2017 Comp Metabolic Dsq743 AL K PHOS 79 U/L 06/22/2017 Comp Metabolic Ily964 T(SGOT) 26 U/L 06/22/2017 Comp Metabolic Lng572 AL T(SGPT) 26 U/L 06/22/2017 Comp Metabolic Yko700 BI LI T 0.4 mg/dL 06/22/2017 Comp Metabolic Zkx278 AL BUMIN 4.1 g/dL 06/22/2017 Comp Metabolic Sco152 TP RO 6.9 g/dL 06/22/2017 Comp Metabolic Jdq972 GL OB 2.8 g/dL 06/22/2017 Comp Metabolic Cdn656 A/ G Ratio 1.5 Ratio 06/22/2017 Comp Metabolic Fbk504 Os mo 271 mOsmo 06/22/2017 Cbc With Differential Ord2 WBC 9.59 K/ul 06/22/2017 Cbc With Differential Ord2 RBC 4.39 M/ul 06/22/2017 Cbc With Differential Ord2 HGB 14.3 g/dl 06/22/2017 Cbc With Differential Ord2 HCT 42.1 % 06/22/2017 Cbc With Differential Ord2 Neut% 66.3 % 06/22/2017 Cbc With Differential Ord2 MCV 95.9 fl 06/22/2017 Cbc With Differential Ord2 Lymph% 22.3 % 06/22/2017 Cbc With Differential Ord2 [place]% 7.9 % 06/22/2017 Cbc With Differential Ord2 MCH 32.6 pg 06/22/2017 Cbc With Differential Ord2 Eos% 3.3 % 06/22/2017 Cbc With Differential Ord2 MCHC 34.0 pg 06/22/2017 Cbc With Differential Ord2 PLT 155 K/ul 06/22/2017 Cbc With Differential Ord2 Baso% 0.2 % 06/22/2017 Cbc With Differential Ord2 RDW 13.8 % 06/22/2017 Cbc With Differential Ord2 Neut ABS# 6.35 K/ul 06/22/2017 Cbc With Differential Ord2 Lymph ABS# 2.14 K/ul 06/22/2017 Cbc With Differential Ord2 [place] ABS# 0.8 K/ul 06/22/2017 Cbc With Differential Ord2 Eos ABS# 0.3 K/ul 06/22/2017 Cbc With Differential Ord2 Baso ABS# 0.0 K/ul 06/22/2017 Cbc With Differential Ord2 WBC 7.38 K/ul 12/25/2015 Cbc With Differential Ord2 RBC 4.01 M/ul 12/25/2015 Cbc With Differential Ord2 HGB 13.3 g/dl 12/25/2015 Cbc With Differential Ord2 HCT 38.8 % 12/25/2015 Cbc With Differential Ord2 Neut% 64.0 % 12/25/2015 Cbc With Differential Ord2 MCV 96.8 fl 12/25/2015 Cbc With Differential Ord2 Lymph% 25.2 % 12/25/2015 Cbc With Differential Ord2 MCH 33.2 pg 12/25/2015 Cbc With Differential Ord2 [place]% 7.6 % 12/25/2015 Cbc With Differential Ord2 Eos% 2.4 % 12/25/2015 Cbc With Differential Ord2 MCHC 34.3 pg 12/25/2015 Cbc With Differential Ord2 PLT 134 K/ul 12/25/2015 Cbc With Differential Ord2 Baso% 0.8 % 12/25/2015 Cbc With Differential Ord2 RDW 14.3 % 12/25/2015 Cbc With Differential Ord2 Neut ABS# 4.72 K/ul 12/25/2015 Cbc With Differential Ord2 Lymph ABS# 1.86 K/ul 12/25/2015 Cbc With Differential Ord2 [place] ABS# 0.6 K/ul 12/25/2015 Cbc With Differential Ord2 Eos ABS# 0.2 K/ul 12/25/2015 Cbc With Differential Ord2 Baso ABS# 0.1 K/ul 12/25/2015 Comp Metabolic Cej697 NA 136 mEq/L 12/25/2015 Comp Metabolic Ocy308 K 4.2 mEq/L 12/25/2015 Comp Metabolic Gtz840 CL 104 mEq/L 12/25/2015 Comp Metabolic Tqj390 CO2 26.0 mEq/L 12/25/2015 Comp Metabolic Qcs979 AN ION GAP 10 12/25/2015 Comp Metabolic Dtm082 GL UCOSE 104 mg/dL 12/25/2015 Comp Metabolic Stg732 Cr eat 1.3 mg/dL 12/25/2015 Comp Metabolic Ttw770 eG FR 59 ml/min/1.73m2 12/24 Comp Metabolic Gtm066 BUN 23 mg/dL 12/25/2015 Comp Metabolic Kha819 B/ C Ratio 18.0 Ratio 12/25/2015 Comp Metabolic Cfy626 CA LCIUM 9.1 mg/dL 12/25/2015 Comp Metabolic Bsb927 AL K PHOS 76 U/L 12/25/2015 Comp Metabolic Eft020 T(SGOT) 30 U/L 12/25/2015 Comp Metabolic Zfc373 AL T(SGPT) 28 U/L 12/25/2015 Comp Metabolic Jxr984 BI LI T 0.3 mg/dL 12/25/2015 Comp Metabolic Wmw837 AL BUMIN 4.0 g/dL 12/25/2015 Comp Metabolic Xcv036 TP RO 6.6 g/dL 12/25/2015 Comp Metabolic Yhl325 GL OB 2.6 g/dL 12/25/2015 Comp Metabolic Izf993 A/ G Ratio 1.5 Ratio 12/25/2015 Comp Metabolic Eig343 Os mo 276 mOsmo 12/25/2015 Cbc With Differential Ord2 WBC 9.40 K/ul 06/25/2015 Cbc With Differential Ord2 RBC 4.13 M/ul 06/25/2015 Cbc With Differential Ord2 HGB 13.4 g/dl 06/25/2015 Cbc With Differential Ord2 HCT 39.3 % 06/25/2015 Cbc With Differential Ord2 Neut% 67.9 % 06/25/2015 Cbc With Differential Ord2 MCV 95.2 fl 06/25/2015 Cbc With Differential Ord2 Lymph% 23.2 % 06/25/2015 Cbc With Differential Ord2 MCH 32.4 pg 06/25/2015 Cbc With Differential Ord2 [place]% 7.1 % 06/25/2015 Cbc With Differential Ord2 MCHC 34.1 pg 06/25/2015 Cbc With Differential Ord2 Eos% 1.6 % 06/25/2015 Cbc With Differential Ord2 PLT 164 K/ul 06/25/2015 Cbc With Differential Ord2 Baso% 0.2 % 06/25/2015 Cbc With Differential Ord2 Neut ABS# 6.38 K/ul 06/25/2015 Cbc With Differential Ord2 RDW 14.1 % 06/25/2015 Cbc With Differential Ord2 Lymph ABS# 2.18 K/ul 06/25/2015 Cbc With Differential Ord2 [place] ABS# 0.7 K/ul 06/25/2015 Cbc With Differential Ord2 Eos ABS# 0.2 K/ul 06/25/2015 Cbc With Differential Ord2 Baso ABS# 0.0 K/ul 06/25/2015 Cbc With Differential Ord2 New Analyzer Notice Please note new ref ranges s tarting 03-28-2015 due to implemntation of new five part differential hematolgy analyzer. 06/25/2015 %Hba1C Znr056 % HbA1c 91835-5 6.1 % 06/25/2015 %Hba1C Qoo851 Gluc Ave 128 mg/dL 06/25/2015 Comp Metabolic Fvc254 NA 135 mEq/L 06/25/2015 Comp Metabolic Zwf245 K 4.3 mEq/L 06/25/2015 Comp Metabolic Zco463 CL 102 mEq/L 06/25/2015 Comp Metabolic Kto142 CO2 26.0 mEq/L 06/25/2015 Comp Metabolic Rve380 AN ION GAP 11 06/25/2015 Comp Metabolic Chz397 GL UCOSE 81 mg/dL 06/25/2015 Comp Metabolic Odm095 Cr eat 1.5 mg/dL 06/25/2015 Comp Metabolic Shc753 eG FR 49 ml/min/1.73m2 06/24 Comp Metabolic Hmi981 BUN 20 mg/dL 06/25/2015 Comp Metabolic Jjz822 B/ C Ratio 13.2 Ratio 06/25/2015 Comp Metabolic Ykz933 CA LCIUM 9.5 mg/dL 06/25/2015 Comp Metabolic Zgs891 AL K PHOS 65 U/L 06/25/2015 Comp Metabolic Rku139 T(SGOT) 25 U/L 06/25/2015 Comp Metabolic Kap108 AL T(SGPT) 29 U/L 06/25/2015 Comp Metabolic Mfj953 BI LI T 0.4 mg/dL 06/25/2015 Comp Metabolic Ufa108 AL BUMIN 4.4 g/dL 06/25/2015 Comp Metabolic Tqi747 TP RO 7.3 g/dL 06/25/2015 Comp Metabolic Hwi583 GL OB 3.0 g/dL 06/25/2015 Comp Metabolic Ksy594 A/ G Ratio 1.5 Ratio 06/25/2015 Comp Metabolic Ntj941 Os mo 272 mOsmo 06/25/2015 Tsh Ord6 hTSH II 3.03 uIU/mL 06/25/2015 Lipid Ord30 CHOL 150 mg/dL 06/22/2015 Lipid Ord30 HDL 34.0 mg/dl 06/22/2015 Lipid Ord30 TRIG 149 mg/dL 06/22/2015 Lipid Ord30 LDL 86 mg/dL 06/22/2015 Lipid Ord30 C/HDL 4.4 Ratio 06/22/2015 Hepatic Sht538 ALBUMIN 4.3 g/dL 06/22/2015 Hepatic Zjl055 TPRO 7.0 g/dL 06/22/2015 Hepatic Kkc041 GLOB 2.8 g/dL 06/22/2015 Hepatic Lgs067 A/G Ratio 1.5 Ratio 06/22/2015 Hepatic Ejv633 ALK PHOS 65 U/L 06/22/2015 Hepatic Noq496 ALT(SGPT) 33 U/L 06/22/2015 Hepatic Zua763 AST(SGOT) 28 U/L 06/22/2015 Hepatic Ver260 BILI T 0.5 mg/dL 06/22/2015 Hepatic Pnj489 BILI D 0.1 mg/dL 06/22/2015 Hepatic Tqz066 BILI I 0.4 mg/dL 06/22/2015 Review of Systems System Result Effective Dates Eyes No eye discharge Eyes No eye erythema 05/2018 Ears/Nose/Throat/Neck No dry mouth 11/16/2018 Ears/Nose/Throat/Neck No dental pain 11/16/2018 Ears/Nose/Throat/Neck No dizziness 11/16/2018 Ears/Nose/Throat/Neck No dysphagia 11/16/2018 Ears/Nose/Throat/Neck No headache 11/16/2018 Ears/Nose/Throat/Neck No hearing loss 11/16/2018 Ears/Nose/Throat/Neck nasal allergies 11/16/2018 Ears/Nose/Throat/Neck nasal discharge 11/16/2018 Ears/Nose/Throat/Neck postnasal drip 11/16/2018 Ears/Nose/Throat/Neck No sinus congestion 11/16/2018 Ears/Nose/Throat/Neck No sore throat 11/16/2018 Cardiovascular No chest pain/pressure 11/16/2018 Respiratory productive sputum 11/16/2018 Respiratory cough 2018 Respiratory wheezing 05/2018 Gastrointestinal No hemorrhoids 11/16/2018 Gastrointestinal No abdominal pain 11/16/2018 Gastrointestinal No constipation 11/16/2018 Gastrointestinal No diarrhea 11/16/2018 Gastrointestinal No gastroesophageal reflu x 11/16/2018 Gastrointestinal No melena 11/16/2018 Gastrointestinal No nausea 11/16/2018 Gastrointestinal No vomiting 11/16/2018 Genitourinary/Nephrology No vaginal drynes s 11/16/2018 Genitourinary/Nephrology No dysuria 11/16/2018 Genitourinary/Nephrology No nocturia 11/16/2018 Genitourinary/Nephrology No urinary incontinence 11/16/2018 Musculoskeletal No stiffness 11/16/2018 Musculoskeletal No swelling 11/16/2018 Musculoskeletal No muscle weakness 11/16/2018 Musculoskeletal No myalgias 11/16/2018 Dermatologic No pruritus 11/16/2018 Dermatologic No rash 05/2018 Dermatologic No scar 05/2018 Neurologic No dizziness 11/16/2018 Neurologic No headache 0 11/16/2018 Neurologic No neck pain 11/16/2018 Neurologic No syncope Ears/Nose/Throat/Neck No facial pain 11/16/2018 Constitutional recent illness 11/16/2018 Constitutional No anorexia 11/16/2018 Constitutional No night sweats 11/16/2018 Constitutional No chills 11/16/2018 Constitutional No diaphoresis 11/16/2018 Constitutional fatigue 0 11/16/2018 Constitutional No fever 11/16/2018 Constitutional No insomnia 11/16/2018 Constitutional No malaise 11/16/2018 Constitutional No weight loss 11/16/2018 Constitutional No weight gain 11/16/2018 Ears/Nose/Throat/Neck No otalgia 11/16/2018 Constitutional No recent illness 09/02/2018 Constitutional No night sweats 09/02/2018 Constitutional No chills 09/02/2018 Constitutional No diaphoresis 09/02/2018 Constitutional No fatigue 09/02/2018 Constitutional No fever 09/02/2018 Constitutional No insomnia 09/02/2018 Constitutional No malaise 09/02/2018 Constitutional No weight loss 09/02/2018 Constitutional No weight gain 09/02/2018 Constitutional No obesity 09/02/2018 Eyes No blindness 2018 Eyes No eye discharge Eyes No eye erythema Eyes No eye floaters Eyes No eye foreign body 09/02/2018 Eyes No eye pain 019 Eyes No eye tearing 08/15 Eyes No eye trauma 09/02 Eyes No eyelid edema Eyes No eyelid erythema 09/02/2018 Eyes No eyelid pain 08/15 Eyes No photophobia 08/15 Eyes No vision change Eyes No amblyopia 2018 Eyes No cataract 019 Eyes No glaucoma 019 Eyes No macular degeneration 09/02/2018 Ears/Nose/Throat/Neck No dry mouth 09/02/2018 Ears/Nose/Throat/Neck No dental pain 09/02/2018 Ears/Nose/Throat/Neck No dizziness 09/02/2018 Ears/Nose/Throat/Neck No dysphagia 09/02/2018 Ears/Nose/Throat/Neck No headache 09/02/2018 Ears/Nose/Throat/Neck No hearing loss 09/02/2018 Ears/Nose/Throat/Neck No nasal allergies 09/02/2018 Ears/Nose/Throat/Neck No nasal discharge 09/02/2018 Ears/Nose/Throat/Neck No postnasal drip 09/02/2018 Ears/Nose/Throat/Neck No sinus congestion 09/02/2018 Ears/Nose/Throat/Neck No sore throat 09/02/2018 Cardiovascular No arrhythmia 09/02/2018 Cardiovascular No chest pain/pressure 09/02/2018 Cardiovascular No dyspnea 09/02/2018 Cardiovascular No edema 09/02/2018 Cardiovascular No exercise intolerance 09/02/2018 Cardiovascular No fatigue 09/02/2018 Cardiovascular No near-syncope/dizziness 09/02/2018 Cardiovascular No orthopnea 09/02/2018 Cardiovascular No palpitations 09/02/2018 Respiratory No electronic cigarettes/Vapor 09/02/2018 Respiratory No asthma Respiratory No pleuritic pain 09/02/2018 Respiratory No productive sputum 09/02/2018 Respiratory No chest tightness 09/02/2018 Respiratory No cigarette smoking 09/02/2018 Respiratory No cough Respiratory No dyspnea 0 09/02/2018 Respiratory No pedal edema 09/02/2018 Respiratory No snoring 0 09/02/2018 Respiratory No wheezing 09/02/2018 Gastrointestinal No hemorrhoids 09/02/2018 Gastrointestinal No abdominal pain 09/02/2018 Gastrointestinal No constipation 09/02/2018 Gastrointestinal No diarrhea 09/02/2018 Gastrointestinal No gastroesophageal reflu x 09/02/2018 Gastrointestinal No melena 09/02/2018 Gastrointestinal No nausea 09/02/2018 Gastrointestinal No vomiting 09/02/2018 Genitourinary/Nephrology No dysuria 09/02/2018 Genitourinary/Nephrology No nocturia 09/02/2018 Genitourinary/Nephrology No urinary incontinence 09/02/2018 Musculoskeletal No stiffness 09/02/2018 Musculoskeletal No swelling 09/02/2018 Musculoskeletal No muscle weakness 09/02/2018 Musculoskeletal No myalgias 09/02/2018 Dermatologic No pruritus 09/02/2018 Dermatologic No rash Dermatologic No scar Neurologic No dizziness 09/02/2018 Neurologic No headache 0 09/02/2018 Neurologic No neck pain 09/02/2018 Neurologic No syncope Psychiatric No confusion 09/02/2018 Psychiatric No anxiety 0 09/02/2018 Psychiatric No depression 09/02/2018 Genitourinary/Nephrology No flank pain 09/02/2018 Constitutional recent illness 06/21/2018 Constitutional No anorexia 06/21/2018 Constitutional No night sweats 06/21/2018 Constitutional No diaphoresis 06/21/2018 Constitutional No chills 06/21/2018 Constitutional fatigue 0 06/21/2018 Constitutional No insomnia 06/21/2018 Constitutional No fever 06/21/2018 Constitutional No malaise 06/21/2018 Constitutional No weight loss 06/21/2018 Constitutional No weight gain 06/21/2018 Eyes No eye discharge Eyes No eye erythema 10/2018 Ears/Nose/Throat/Neck No dizziness 06/21/2018 Ears/Nose/Throat/Neck No headache 06/21/2018 Ears/Nose/Throat/Neck nasal allergies 06/21/2018 Ears/Nose/Throat/Neck nasal discharge 06/21/2018 Ears/Nose/Throat/Neck No otalgia 06/21/2018 Cardiovascular No chest pain/pressure 06/21/2018 Cardiovascular No dyspnea 06/21/2018 Cardiovascular No edema 06/21/2018 Respiratory cough 2018 Gastrointestinal No constipation 06/21/2018 Gastrointestinal No diarrhea 06/21/2018 Gastrointestinal No abdominal pain 06/21/2018 Gastrointestinal No vomiting 06/21/2018 Gastrointestinal No nausea 06/21/2018 Genitourinary/Nephrology No dysuria 06/21/2018 Musculoskeletal No joint complaint 06/21/2018 Dermatologic No rash 10/2018 Neurologic No alteration of consciousness 06/21/2018 Constitutional recent illness 05/14/2018 Constitutional chills Constitutional No diaphoresis 05/14/2018 Constitutional fever 03/2018 Eyes No eye erythema 03/2018 Ears/Nose/Throat/Neck nasal allergies 05/14/2018 Ears/Nose/Throat/Neck nasal discharge 05/14/2018 Ears/Nose/Throat/Neck postnasal drip 05/14/2018 Ears/Nose/Throat/Neck sinus congestion 05/14/2018 Ears/Nose/Throat/Neck sore throat 05/14/2018 Cardiovascular No chest pain/pressure 05/14/2018 Cardiovascular No dyspnea 05/14/2018 Respiratory No chest congestion 05/14/2018 Respiratory cough 2018 Respiratory No dyspnea 0 05/14/2018 Gastrointestinal No constipation 05/14/2018 Gastrointestinal No diarrhea 05/14/2018 Gastrointestinal No nausea 05/14/2018 Gastrointestinal No vomiting 05/14/2018 Dermatologic No rash 03/2018 Neurologic No alteration of consciousness 05/14/2018 Neurologic No mental status change 05/14/2018 Constitutional recent illness 03/11/2018 Constitutional No chills 03/11/2018 Constitutional No diaphoresis 03/11/2018 Constitutional No fever 03/11/2018 Eyes No eye erythema Ears/Nose/Throat/Neck nasal allergies 03/11/2018 Ears/Nose/Throat/Neck nasal discharge 03/11/2018 Ears/Nose/Throat/Neck postnasal drip 03/11/2018 Ears/Nose/Throat/Neck sinus congestion 03/11/2018 Ears/Nose/Throat/Neck No sore throat 03/11/2018 Cardiovascular No chest pain/pressure 03/11/2018 Cardiovascular No dyspnea 03/11/2018 Respiratory No chest congestion 03/11/2018 Respiratory cough 2017 Respiratory No dyspnea 1 05/12/2017 Gastrointestinal No abdominal pain 03/11/2018 Gastrointestinal No constipation 03/11/2018 Gastrointestinal No diarrhea 03/11/2018 Gastrointestinal No nausea 03/11/2018 Gastrointestinal No vomiting 03/11/2018 Dermatologic No rash Neurologic No alteration of consciousness 03/11/2018 Neurologic No mental status change 03/11/2018 Constitutional recent illness 02/10/2018 Constitutional No chills 02/10/2018 Constitutional No diaphoresis 02/10/2018 Constitutional No fever 02/10/2018 Eyes No eye erythema Ears/Nose/Throat/Neck nasal allergies 02/10/2018 Ears/Nose/Throat/Neck nasal discharge 02/10/2018 Ears/Nose/Throat/Neck postnasal drip 02/10/2018 Ears/Nose/Throat/Neck sinus congestion 02/10/2018 Ears/Nose/Throat/Neck No sore throat 02/10/2018 Cardiovascular No chest pain/pressure 02/10/2018 Cardiovascular No dyspnea 02/10/2018 Respiratory No chest congestion 02/10/2018 Respiratory cough 2017 Respiratory No dyspnea 1 04/12/2017 Gastrointestinal No abdominal pain 02/10/2018 Gastrointestinal No constipation 02/10/2018 Gastrointestinal No diarrhea 02/10/2018 Gastrointestinal No nausea 02/10/2018 Gastrointestinal No vomiting 02/10/2018 Dermatologic No rash Neurologic No alteration of consciousness 02/10/2018 Neurologic No mental status change 02/10/2018 Constitutional No recent illness 01/13/2018 Constitutional No chills 01/13/2018 Constitutional No diaphoresis 01/13/2018 Constitutional No fever 01/13/2018 Eyes No eye erythema Ears/Nose/Throat/Neck No nasal discharge 01/13/2018 Cardiovascular No chest pain/pressure 01/13/2018 Cardiovascular No dyspnea 01/13/2018 Respiratory No cough Respiratory No dyspnea 1 Neurologic No alteration of consciousness 01/13/2018 Neurologic No mental status change 01/13/2018 Constitutional No recent illness 12/23/2017 Constitutional No anorexia 12/23/2017 Constitutional No night sweats 12/23/2017 Constitutional No chills 12/23/2017 Constitutional No diaphoresis 12/23/2017 Constitutional No fatigue 12/23/2017 Constitutional No fever 12/23/2017 Constitutional No insomnia 12/23/2017 Constitutional No malaise 12/23/2017 Eyes No eye discharge Eyes No eye erythema 12/2017 Ears/Nose/Throat/Neck No nasal allergies 12/23/2017 Ears/Nose/Throat/Neck No nasal discharge 12/23/2017 Cardiovascular No chest pain/pressure 12/23/2017 Respiratory No cough 12/2017 Gastrointestinal No abdominal pain 12/23/2017 Gastrointestinal No constipation 12/23/2017 Gastrointestinal No diarrhea 12/23/2017 Genitourinary/Nephrology No dysuria 12/23/2017 Musculoskeletal back pain 12/23/2017 Musculoskeletal No joint complaint 12/23/2017 Dermatologic No rash 12/2017 Dermatologic No sores Neurologic No alteration of consciousness 12/23/2017 Psychiatric No depression 12/23/2017 Constitutional weight loss 12/23/2017 Cardiovascular hypertension 12/23/2017 Constitutional No recent illness 06/24/2017 Constitutional No anorexia 06/24/2017 Constitutional No night sweats 06/24/2017 Constitutional No chills 06/24/2017 Constitutional No diaphoresis 06/24/2017 Constitutional No fever 06/24/2017 Constitutional No insomnia 06/24/2017 Constitutional No malaise 06/24/2017 Eyes No eye discharge Eyes No eye erythema 01/2018 Ears/Nose/Throat/Neck No dizziness 06/24/2017 Ears/Nose/Throat/Neck No nasal allergies 06/24/2017 Ears/Nose/Throat/Neck No nasal discharge 06/24/2017 Cardiovascular No chest pain/pressure 06/24/2017 Respiratory cough 2017 Gastrointestinal No abdominal pain 06/24/2017 Gastrointestinal No constipation 06/24/2017 Gastrointestinal No diarrhea 06/24/2017 Genitourinary/Nephrology No dysuria 06/24/2017 Musculoskeletal back pain 06/24/2017 Musculoskeletal No joint complaint 06/24/2017 Dermatologic No rash 01/2018 Dermatologic No sores Neurologic No alteration of consciousness 06/24/2017 Psychiatric No depression 06/24/2017 Endocrine No dry or coarse skin 06/24/2017 Cardiovascular hypertension 06/24/2017 Respiratory chest tightness 06/24/2017 Respiratory chest congestion 06/24/2017 Constitutional recent illness 03/17/2017 Constitutional No chills 03/17/2017 Constitutional No diaphoresis 03/17/2017 Constitutional No fever 03/17/2017 Eyes No eye erythema 04/2017 Ears/Nose/Throat/Neck nasal allergies 03/17/2017 Ears/Nose/Throat/Neck nasal discharge 03/17/2017 Ears/Nose/Throat/Neck postnasal drip 03/17/2017 Ears/Nose/Throat/Neck sinus congestion 03/17/2017 Ears/Nose/Throat/Neck No sore throat 03/17/2017 Cardiovascular No chest pain/pressure 03/17/2017 Cardiovascular No dyspnea 03/17/2017 Respiratory No chest congestion 03/17/2017 Respiratory cough 2017 Respiratory No dyspnea 0 03/17/2017 Gastrointestinal No abdominal pain 03/17/2017 Gastrointestinal No constipation 03/17/2017 Gastrointestinal No diarrhea 03/17/2017 Gastrointestinal No nausea 03/17/2017 Gastrointestinal No vomiting 03/17/2017 Dermatologic No rash 04/2017 Neurologic No alteration of consciousness 03/17/2017 Neurologic No mental status change 03/17/2017 Constitutional No recent illness 12/24/2016 Constitutional No anorexia 12/24/2016 Constitutional No night sweats 12/24/2016 Constitutional No chills 12/24/2016 Constitutional No diaphoresis 12/24/2016 Constitutional No fatigue 12/24/2016 Constitutional No fever 12/24/2016 Constitutional No insomnia 12/24/2016 Constitutional No malaise 12/24/2016 Eyes No eye discharge Eyes No eye erythema 01/2017 Ears/Nose/Throat/Neck No nasal allergies 12/24/2016 Ears/Nose/Throat/Neck No nasal discharge 12/24/2016 Cardiovascular No chest pain/pressure 12/24/2016 Respiratory No cough 01/2017 Gastrointestinal No abdominal pain 12/24/2016 Gastrointestinal No constipation 12/24/2016 Gastrointestinal No diarrhea 12/24/2016 Genitourinary/Nephrology No dysuria 12/24/2016 Musculoskeletal back pain 12/24/2016 Musculoskeletal No joint complaint 12/24/2016 Dermatologic No rash 01/2017 Dermatologic No sores Neurologic No alteration of consciousness 12/24/2016 Psychiatric No depression 12/24/2016 Constitutional recent illness 11/18/2016 Constitutional No chills 11/18/2016 Constitutional No diaphoresis 11/18/2016 Constitutional No fever 11/18/2016 Eyes No eye erythema 07/2016 Ears/Nose/Throat/Neck nasal allergies 11/18/2016 Ears/Nose/Throat/Neck nasal discharge 11/18/2016 Ears/Nose/Throat/Neck No sore throat 11/18/2016 Ears/Nose/Throat/Neck sinus congestion 11/18/2016 Ears/Nose/Throat/Neck postnasal drip 11/18/2016 Respiratory cough 2016 Respiratory chest congestion 11/18/2016 Respiratory dyspnea on exertion 11/18/2016 Respiratory No dyspnea 0 11/18/2016 Cardiovascular No dyspnea 11/18/2016 Gastrointestinal No abdominal pain 11/18/2016 Gastrointestinal No constipation 11/18/2016 Gastrointestinal No diarrhea 11/18/2016 Gastrointestinal No vomiting 11/18/2016 Gastrointestinal No nausea 11/18/2016 Musculoskeletal back pain 11/18/2016 Dermatologic No rash 07/2016 Neurologic No alteration of consciousness 11/18/2016 Neurologic No mental status change 11/18/2016 Constitutional No recent illness 06/24/2016 Constitutional No anorexia 06/24/2016 Constitutional No night sweats 06/24/2016 Constitutional No chills 06/24/2016 Constitutional No diaphoresis 06/24/2016 Constitutional fatigue 0 06/24/2016 Constitutional No fever 06/24/2016 Constitutional No insomnia 06/24/2016 Constitutional No malaise 06/24/2016 Eyes No eye discharge Eyes No eye erythema 01/2017 Ears/Nose/Throat/Neck No nasal allergies 06/24/2016 Ears/Nose/Throat/Neck No nasal discharge 06/24/2016 Cardiovascular No chest pain/pressure 06/24/2016 Respiratory No cough 01/2017 Gastrointestinal No abdominal pain 06/24/2016 Gastrointestinal No constipation 06/24/2016 Gastrointestinal No diarrhea 06/24/2016 Genitourinary/Nephrology No dysuria 06/24/2016 Musculoskeletal back pain 06/24/2016 Musculoskeletal No joint complaint 06/24/2016 Dermatologic No rash 01/2017 Dermatologic No sores Neurologic No alteration of consciousness 06/24/2016 Psychiatric No depression 06/24/2016 Endocrine No dry or coarse skin 06/24/2016 Ears/Nose/Throat/Neck No dizziness 06/24/2016 Constitutional No recent illness 05/20/2016 Constitutional No anorexia 05/20/2016 Constitutional No night sweats 05/20/2016 Constitutional No chills 05/20/2016 Constitutional No diaphoresis 05/20/2016 Constitutional fatigue 0 05/20/2016 Constitutional No fever 05/20/2016 Constitutional insomnia 05/20/2016 Constitutional No malaise 05/20/2016 Eyes No blindness 2016 Eyes No eye discharge Eyes No eye erythema 09/2016 Eyes No vision change Ears/Nose/Throat/Neck No dental pain 05/20/2016 Ears/Nose/Throat/Neck No dizziness 05/20/2016 Ears/Nose/Throat/Neck No dysphagia 05/20/2016 Ears/Nose/Throat/Neck No headache 05/20/2016 Ears/Nose/Throat/Neck No hearing loss 05/20/2016 Ears/Nose/Throat/Neck No nasal allergies 05/20/2016 Ears/Nose/Throat/Neck No sore throat 05/20/2016 Cardiovascular No chest pain/pressure 05/20/2016 Cardiovascular No dyspnea 05/20/2016 Cardiovascular No edema 05/20/2016 Cardiovascular No exercise intolerance 05/20/2016 Cardiovascular hypertension 05/20/2016 Cardiovascular No near-syncope/dizziness 05/20/2016 Respiratory No chest tightness 05/20/2016 Respiratory No cigarette smoking 05/20/2016 Respiratory No cough 09/2016 Respiratory No dyspnea 0 05/20/2016 Respiratory No pedal edema 05/20/2016 Respiratory snoring 09/2016 Respiratory No wheezing 05/20/2016 Gastrointestinal No hemorrhoids 05/20/2016 Gastrointestinal No abdominal pain 05/20/2016 Gastrointestinal No constipation 05/20/2016 Gastrointestinal No diarrhea 05/20/2016 Gastrointestinal No gastroesophageal reflu x 05/20/2016 Gastrointestinal No melena 05/20/2016 Gastrointestinal No nausea 05/20/2016 Gastrointestinal No vomiting 05/20/2016 Genitourinary/Nephrology No dysuria 05/20/2016 Genitourinary/Nephrology No nocturia 05/20/2016 Genitourinary/Nephrology No urinary incontinence 05/20/2016 Musculoskeletal No stiffness 05/20/2016 Musculoskeletal No swelling 05/20/2016 Musculoskeletal No muscle weakness 05/20/2016 Musculoskeletal No myalgias 05/20/2016 Psychiatric No anxiety 0 05/20/2016 Psychiatric No depression 05/20/2016 Constitutional recent illness 05/09/2016 Constitutional No anorexia 05/09/2016 Constitutional night sweats 05/09/2016 Constitutional chills Constitutional diaphoresis 05/09/2016 Constitutional fatigue 0 05/09/2016 Constitutional No fever 05/09/2016 Constitutional No insomnia 05/09/2016 Constitutional malaise 0 05/09/2016 Constitutional No weight loss 05/09/2016 Constitutional No weight gain 05/09/2016 Eyes No eye erythema Eyes No eye discharge Ears/Nose/Throat/Neck nasal discharge 05/09/2016 Ears/Nose/Throat/Neck nasal allergies 05/09/2016 Ears/Nose/Throat/Neck No otalgia 05/09/2016 Ears/Nose/Throat/Neck No sore throat 05/09/2016 Cardiovascular dyspnea 0 05/09/2016 Respiratory productive sputum 05/09/2016 Respiratory chest congestion 05/09/2016 Respiratory cough 2016 Respiratory chest tightness 05/09/2016 Respiratory wheezing Gastrointestinal No abdominal pain 05/09/2016 Genitourinary/Nephrology No dysuria 05/09/2016 Musculoskeletal No joint complaint 05/09/2016 Dermatologic No rash Neurologic No alteration of consciousness 05/09/2016 Constitutional recent illness 04/28/2016 Constitutional No chills 04/28/2016 Constitutional No diaphoresis 04/28/2016 Constitutional No fever 04/28/2016 Eyes No eye discharge Eyes No eye erythema Ears/Nose/Throat/Neck headache 04/28/2016 Cardiovascular No chest pain/pressure 04/28/2016 Respiratory cough 2016 Gastrointestinal No abdominal pain 04/28/2016 Gastrointestinal No constipation 04/28/2016 Gastrointestinal No diarrhea 04/28/2016 Musculoskeletal No joint complaint 04/28/2016 Dermatologic No rash Neurologic No alteration of consciousness 04/28/2016 Ears/Nose/Throat/Neck nasal allergies 04/28/2016 Ears/Nose/Throat/Neck nasal discharge 04/28/2016 Ears/Nose/Throat/Neck postnasal drip 04/28/2016 Respiratory productive sputum 04/28/2016 Respiratory No dyspnea 0 04/28/2016 Neurologic No mental status change 04/28/2016 Constitutional recent illness 04/04/2016 Constitutional No anorexia 04/04/2016 Constitutional No night sweats 04/04/2016 Constitutional No diaphoresis 04/04/2016 Constitutional No chills 04/04/2016 Constitutional No fatigue 04/04/2016 Constitutional No fever 04/04/2016 Constitutional No insomnia 04/04/2016 Constitutional No weight loss 04/04/2016 Constitutional No weight gain 04/04/2016 Constitutional No malaise 04/04/2016 Eyes No eye erythema Eyes No eye discharge Ears/Nose/Throat/Neck No dizziness 04/04/2016 Ears/Nose/Throat/Neck No headache 04/04/2016 Cardiovascular No chest pain/pressure 04/04/2016 Respiratory productive sputum 04/04/2016 Respiratory dyspnea on exertion 04/04/2016 Respiratory cough 2016 Gastrointestinal No abdominal pain 04/04/2016 Gastrointestinal No constipation 04/04/2016 Gastrointestinal No diarrhea 04/04/2016 Genitourinary/Nephrology No dysuria 04/04/2016 Musculoskeletal No joint complaint 04/04/2016 Dermatologic No rash Neurologic No alteration of consciousness 04/04/2016 Constitutional recent illness 03/28/2016 Constitutional No anorexia 03/28/2016 Constitutional No night sweats 03/28/2016 Constitutional No chills 03/28/2016 Constitutional diaphoresis 03/28/2016 Constitutional No fatigue 03/28/2016 Constitutional No fever 03/28/2016 Constitutional No insomnia 03/28/2016 Constitutional No malaise 03/28/2016 Constitutional No weight loss 03/28/2016 Constitutional No weight gain 03/28/2016 Eyes No eye discharge Eyes No eye erythema Ears/Nose/Throat/Neck No nasal discharge 03/28/2016 Ears/Nose/Throat/Neck No otalgia 03/28/2016 Cardiovascular No chest pain/pressure 03/28/2016 Respiratory cough 2016 Respiratory productive sputum 03/28/2016 Gastrointestinal No abdominal pain 03/28/2016 Gastrointestinal No constipation 03/28/2016 Gastrointestinal No diarrhea 03/28/2016 Genitourinary/Nephrology No dysuria 03/28/2016 Musculoskeletal No joint complaint 03/28/2016 Dermatologic No rash Neurologic No alteration of consciousness 03/28/2016 Constitutional recent illness 02/13/2016 Constitutional No chills 02/13/2016 Constitutional No diaphoresis 02/13/2016 Constitutional No fever 02/13/2016 Eyes No eye erythema Ears/Nose/Throat/Neck nasal allergies 02/13/2016 Ears/Nose/Throat/Neck nasal discharge 02/13/2016 Ears/Nose/Throat/Neck postnasal drip 02/13/2016 Ears/Nose/Throat/Neck sinus congestion 02/13/2016 Cardiovascular No chest pain/pressure 02/13/2016 Cardiovascular No dyspnea 02/13/2016 Respiratory cough 2015 Respiratory No dyspnea 1 04/14/2015 Gastrointestinal No abdominal pain 02/13/2016 Gastrointestinal No constipation 02/13/2016 Gastrointestinal No diarrhea 02/13/2016 Gastrointestinal No vomiting 02/13/2016 Gastrointestinal No nausea 02/13/2016 Dermatologic No rash Neurologic No alteration of consciousness 02/13/2016 Neurologic No mental status change 02/13/2016 Constitutional No chills 08/02/2015 Constitutional No diaphoresis 08/02/2015 Constitutional No fatigue 08/02/2015 Constitutional fever Constitutional No insomnia 08/02/2015 Constitutional No malaise 08/02/2015 Eyes No eye discharge Eyes No eye erythema Ears/Nose/Throat/Neck nasal allergies 08/02/2015 Ears/Nose/Throat/Neck nasal discharge 08/02/2015 Cardiovascular No chest pain/pressure 08/02/2015 Respiratory cough 2015 Gastrointestinal No abdominal pain 08/02/2015 Gastrointestinal No constipation 08/02/2015 Gastrointestinal No diarrhea 08/02/2015 Genitourinary/Nephrology No dysuria 08/02/2015 Musculoskeletal back pain 08/02/2015 Musculoskeletal No joint complaint 08/02/2015 Dermatologic No rash Dermatologic No sores Neurologic No alteration of consciousness 08/02/2015 Constitutional recent illness 08/02/2015 Ears/Nose/Throat/Neck otalgia 08/02/2015 Ears/Nose/Throat/Neck postnasal drip 08/02/2015 Ears/Nose/Throat/Neck sinus congestion 08/02/2015 Respiratory productive sputum 08/02/2015 Neurologic No mental status change 08/02/2015 Constitutional No recent illness 06/22/2015 Constitutional No anorexia 06/22/2015 Constitutional No night sweats 06/22/2015 Constitutional No chills 06/22/2015 Constitutional No diaphoresis 06/22/2015 Constitutional No fatigue 06/22/2015 Constitutional No fever 06/22/2015 Constitutional No insomnia 06/22/2015 Constitutional No malaise 06/22/2015 Constitutional No weight loss 06/22/2015 Constitutional No weight gain 06/22/2015 Eyes No eye discharge Eyes No eye erythema 10/2015 Ears/Nose/Throat/Neck No nasal allergies 06/22/2015 Ears/Nose/Throat/Neck No nasal discharge 06/22/2015 Cardiovascular No chest pain/pressure 06/22/2015 Respiratory No cough 10/2015 Gastrointestinal No abdominal pain 06/22/2015 Gastrointestinal No constipation 06/22/2015 Gastrointestinal No diarrhea 06/22/2015 Genitourinary/Nephrology No dysuria 06/22/2015 Musculoskeletal No joint complaint 06/22/2015 Dermatologic No rash 10/2015 Dermatologic No sores Musculoskeletal back pain 06/22/2015 Neurologic No alteration of consciousness 06/22/2015 Psychiatric No depression 06/22/2015 Endocrine No dry or coarse skin 06/22/2015 Constitutional No chills 07/31/2014 Constitutional recent illness 07/31/2014 Eyes eye tearing 015 Eyes No photophobia 07/14 Ears/Nose/Throat/Neck No headache 07/31/2014 Ears/Nose/Throat/Neck No dizziness 07/31/2014 Cardiovascular No fatigue 07/31/2014 Cardiovascular No dyspnea 07/31/2014 Respiratory cough 2014 Gastrointestinal No constipation 07/31/2014 Gastrointestinal No diarrhea 07/31/2014 Genitourinary/Nephrology No dysuria 07/31/2014 Genitourinary/Nephrology No hematuria 07/31/2014 Musculoskeletal No back pain 07/31/2014 Dermatologic No rash Dermatologic No sores Musculoskeletal No joint complaint 07/31/2014 Musculoskeletal No muscle weakness 07/31/2014 Neurologic No headache 0 07/31/2014 Constitutional No recent illness 03/20/2014 Constitutional No anorexia 03/20/2014 Constitutional No night sweats 03/20/2014 Constitutional No chills 03/20/2014 Constitutional No diaphoresis 03/20/2014 Constitutional fatigue 0 03/20/2014 Constitutional No fever 03/20/2014 Constitutional insomnia 03/20/2014 Constitutional No malaise 03/20/2014 Constitutional No weight gain 03/20/2014 Constitutional No weight loss 03/20/2014 Eyes No eye discharge Eyes No eye erythema 07/2014 Ears/Nose/Throat/Neck No dizziness 03/20/2014 Ears/Nose/Throat/Neck No headache 03/20/2014 Eyes No blindness 2014 Eyes No vision change Ears/Nose/Throat/Neck No dental pain 03/20/2014 Ears/Nose/Throat/Neck No dysphagia 03/20/2014 Ears/Nose/Throat/Neck No hearing loss 03/20/2014 Ears/Nose/Throat/Neck No nasal allergies 03/20/2014 Ears/Nose/Throat/Neck No sore throat 03/20/2014 Ears/Nose/Throat/Neck snoring 03/20/2014 Ears/Nose/Throat/Neck No postnasal drip 03/20/2014 Ears/Nose/Throat/Neck No sinus congestion 03/20/2014 Cardiovascular No chest pain/pressure 03/20/2014 Cardiovascular No dyspnea 03/20/2014 Cardiovascular No edema 03/20/2014 Cardiovascular No exercise intolerance 03/20/2014 Cardiovascular hypertension 03/20/2014 Cardiovascular No near-syncope/dizziness 03/20/2014 Respiratory No chest tightness 03/20/2014 Respiratory No cigarette smoking 03/20/2014 Respiratory No cough 07/2014 Respiratory No dyspnea 0 03/20/2014 Respiratory No pedal edema 03/20/2014 Respiratory snoring 07/2014 Respiratory No wheezing 03/20/2014 Gastrointestinal No hemorrhoids 03/20/2014 Gastrointestinal No abdominal pain 03/20/2014 Gastrointestinal No constipation 03/20/2014 Gastrointestinal No diarrhea 03/20/2014 Gastrointestinal No gastroesophageal reflu x 03/20/2014 Gastrointestinal No melena 03/20/2014 Gastrointestinal No nausea 03/20/2014 Gastrointestinal No vomiting 03/20/2014 Genitourinary/Nephrology No dysuria 03/20/2014 Genitourinary/Nephrology No nocturia 03/20/2014 Genitourinary/Nephrology No urinary incontinence 03/20/2014 Musculoskeletal No stiffness 03/20/2014 Musculoskeletal No swelling 03/20/2014 Musculoskeletal No muscle weakness 03/20/2014 Musculoskeletal No myalgias 03/20/2014 Dermatologic No rash 07/2014 Dermatologic No scar 07/2014 Neurologic No neck pain 03/20/2014 Neurologic No syncope Psychiatric No anxiety 0 03/20/2014 Psychiatric No depression 03/20/2014 Constitutional No recent illness 03/01/2014 Constitutional No chills 03/01/2014 Constitutional No fatigue 03/01/2014 Constitutional No fever 03/01/2014 Constitutional No insomnia 03/01/2014 Constitutional No malaise 03/01/2014 Eyes No blindness 2013 Eyes No vision change Ears/Nose/Throat/Neck No dental pain 03/01/2014 Ears/Nose/Throat/Neck No dizziness 03/01/2014 Ears/Nose/Throat/Neck No dysphagia 03/01/2014 Ears/Nose/Throat/Neck No headache 03/01/2014 Ears/Nose/Throat/Neck No hearing loss 03/01/2014 Ears/Nose/Throat/Neck No nasal allergies 03/01/2014 Ears/Nose/Throat/Neck No sore throat 03/01/2014 Ears/Nose/Throat/Neck No postnasal drip 03/01/2014 Ears/Nose/Throat/Neck No sinus congestion 03/01/2014 Ears/Nose/Throat/Neck snoring 03/01/2014 Cardiovascular No chest pain/pressure 03/01/2014 Cardiovascular No dyspnea 03/01/2014 Cardiovascular No edema 03/01/2014 Cardiovascular No exercise intolerance 03/01/2014 Cardiovascular fatigue 1 05/02/2013 Cardiovascular No near-syncope/dizziness 03/01/2014 Cardiovascular hypertension 03/01/2014 Respiratory No chest tightness 03/01/2014 Respiratory No cigarette smoking 03/01/2014 Respiratory No cough Respiratory No dyspnea 1 05/02/2013 Respiratory No pedal edema 03/01/2014 Respiratory snoring 02/13 Respiratory No wheezing 03/01/2014 Gastrointestinal No hemorrhoids 03/01/2014 Gastrointestinal No abdominal pain 03/01/2014 Gastrointestinal No constipation 03/01/2014 Gastrointestinal No diarrhea 03/01/2014 Gastrointestinal No gastroesophageal reflu x 03/01/2014 Gastrointestinal No melena 03/01/2014 Gastrointestinal No nausea 03/01/2014 Gastrointestinal No vomiting 03/01/2014 Genitourinary/Nephrology No dysuria 03/01/2014 Genitourinary/Nephrology No nocturia 03/01/2014 Genitourinary/Nephrology No urinary incontinence 03/01/2014 Musculoskeletal No stiffness 03/01/2014 Musculoskeletal No swelling 03/01/2014 Musculoskeletal No muscle weakness 03/01/2014 Musculoskeletal No myalgias 03/01/2014 Dermatologic No rash Dermatologic No scar Neurologic No dizziness 03/01/2014 Neurologic No headache 1 05/02/2013 Neurologic No neck pain 03/01/2014 Neurologic No syncope Psychiatric No anxiety 1 05/02/2013 Psychiatric No depression 03/01/2014 Physical Exam Exam Name System Name It em Name Status Result Effective Dates Notes Full Exam - General 1994 Constitutional general appearance Development: well developed 11/16/2018 None Full Exam - General 1994 Constitutional general appearance Development: appears stated age 0911/16/2018 None Full Exam - General 1994 Constitutional general appearance Hygiene/Attention to Grooming: good hygiene 11/16/2018 None Full Exam - General 1994 Eyes conjunctiva/eyelids Overall: conjunctiva clear 11/16/2018 None Full Exam - General 1994 Eyes conjunctiva/eyelids Overall: cornea clear 11/16/2018 None Full Exam - General 1994 Eyes conjunctiva/eyelids Overall: eyelids normal 11/16/2018 None Full Exam - General 1995 Eyes pupils and irises Overall: pupils equal, round, reactive to light and accomodation 11/16/2018 None Full Exam - General 1995 Ears/Nose/Throat otoscopic exam Overall: external auditory canals clear 11/16/2018 None Full Exam - General 1995 Ears/Nose/Throat lips/teeth/gingiva Overall: benign lips 11/16/2018 None Full Exam - General 1995 Ears/Nose/Throat lips/teeth/gingiva Overall: normal dentition 11/16/2018 None Full Exam - General 1995 Ears/Nose/Throat oral cavity/pharynx/larynx Overall: oral mucosa clear 11/16/2018 None Full Exam - General 1994 Respiratory auscultation Diffuse: diminished 11/16/2018 None Full Exam - General 1994 Respiratory auscultation Diffuse: expiratory wheezes 11/16/2018 None Full Exam - General 1994 Respiratory respiratory effort/rhythm Overall: no retractions 11/16/2018 None Full Exam - General 1994 Respiratory respiratory effort/rhythm Overall: normal rate 11/16/2018 None Full Exam - General 1994 Cardiovascular extremities Overall: no clubbing 11/16/2018 None Full Exam - General 1994 Cardiovascular auscultation of heart Overall: regular rate 11/16/2018 None Full Exam - General 1994 Cardiovascular auscultation of heart Overall: normal heart sounds 11/16/2018 None Full Exam - General 1994 Cardiovascular auscultation of heart Systolic murmur: blowing 11/16/2018 None Full Exam - General 1994 Cardiovascular auscultation of heart Systolic murmur grade: III/ 11/16/2018 None Full Exam - General 1994 Abdomen abdominal exam Contour: rounded 11/16/2018 None Full Exam - General 1994 Lymphatic neck nodes Overall: anterior cervical chain benign 11/16/2018 None Full Exam - General 1994 Lymphatic neck nodes Overall: posterior cervical chain benign 11/16/2018 None Full Exam - General 1994 Musculoskeletal head and neck Overall: head atraumatic 11/16/2018 None Full Exam - General 1994 Neurologic cranial nerves Overall: crainial nerves 2 - 12 grossly intact 11/16/2018 None Full Exam - General 1994 Psychiatric orientation/consciousness Overall: oriented to person, place and time 11/16/2018 None Full Exam - General 1994 Psychiatric mood and affect Overall: normal mood and affect 11/16/2018 None Full Exam - General 1994 Constitutional general appearance Development: well developed 09/02/2018 None Full Exam - General 1994 Constitutional general appearance Development: appears stated age 0609/02/2018 None Full Exam - General 1994 Constitutional general appearance Hygiene/Attention to Grooming: good hygiene 09/02/2018 None Full Exam - General 1994 Eyes conjunctiva/eyelids Overall: conjunctiva clear 09/02/2018 None Full Exam - General 1994 Eyes conjunctiva/eyelids Overall: cornea clear 09/02/2018 None Full Exam - General 1994 Eyes conjunctiva/eyelids Overall: eyelids normal 09/02/2018 None Full Exam - General 1994 Eyes pupils and irises Overall: pupils equal, round, reactive to light and accomodation 09/02/2018 None Full Exam - General 1994 Ears/Nose/Throat otoscopic exam Overall: external auditory canals clear 09/02/2018 None Full Exam - General 1994 Ears/Nose/Throat lips/teeth/gingiva Overall: benign lips 09/02/2018 None Full Exam - General 1994 Ears/Nose/Throat lips/teeth/gingiva Overall: normal dentition 09/02/2018 None Full Exam - General 1994 Ears/Nose/Throat oral cavity/pharynx/larynx Overall: oral mucosa clear 09/02/2018 None Full Exam - General 1994 Ears/Nose/Throat oral cavity/pharynx/larynx Overall: oropharyngeal mucosa clear 09/02/2018 None Full Exam - General 1994 Ears/Nose/Throat oral cavity/pharynx/larynx Overall: hypopharynx benign 09/02/2018 None Full Exam - General 1994 Ears/Nose/Throat oral cavity/pharynx/larynx Overall: no masses 09/02/2018 None Full Exam - General 1994 Respiratory auscultation Overall: breath sounds clear bilaterally 09/02/2018 None Full Exam - General 1994 Respiratory respiratory effort/rhythm Overall: no retractions 09/02/2018 None Full Exam - General 1994 Respiratory respiratory effort/rhythm Overall: normal rate 09/02/2018 None Full Exam - General 1994 Cardiovascular extremities Overall: no clubbing 09/02/2018 None Full Exam - General 1994 Cardiovascular auscultation of heart Overall: regular rate 09/02/2018 None Full Exam - General 1994 Cardiovascular auscultation of heart Overall: normal heart sounds 09/02/2018 None Full Exam - General 1994 Cardiovascular auscultation of heart Systolic murmur: blowing 09/02/2018 None Full Exam - General 1994 Cardiovascular auscultation of heart Systolic murmur grade: III/ 09/02/2018 None Full Exam - General 1994 Abdomen abdominal exam Overall: no tenderness 09/02/2018 None Full Exam - General 1994 Abdomen abdominal exam Overall: normal bowel sounds 09/02/2018 None Full Exam - General 1994 Abdomen abdominal exam Contour: protuberant 09/02/2018 None Full Exam - General 1994 Abdomen abdominal exam Skin: presence of a scar 09/02/2018 None Full Exam - General 1994 Abdomen hernia exam Abdominal hernia present: non-tender 09/02/2018 diastasis recti Full Exam - General 1994 Lymphatic neck nodes Overall: anterior cervical chain benign 09/02/2018 None Full Exam - General 1994 Lymphatic neck nodes Overall: posterior cervical chain benign 09/02/2018 None Full Exam - General 1994 Musculoskeletal spine, ribs and pelvis Posture: a normal exam 09/02/2018 None Full Exam - General 1994 Musculoskeletal head and neck Overall: head atraumatic 09/02/2018 None Full Exam - General 1994 Musculoskeletal head and neck Overall: cervical spine benign 09/02/2018 None Full Exam - General 1994 Neurologic cranial nerves Overall: crainial nerves 2 - 12 grossly intact 09/02/2018 None Full Exam - General 1994 Psychiatric orientation/consciousness Overall: oriented to person, place and time 09/02/2018 None Full Exam - General 1994 Psychiatric mood and affect Overall: normal mood and affect 09/02/2018 None Full Exam - General 1994 Constitutional general appearance Development: well developed 06/21/2018 None Full Exam - General 1994 Constitutional general appearance Development: appears stated age 0406/21/2018 None Full Exam - General 1994 Constitutional general appearance Hygiene/Attention to Grooming: good hygiene 06/21/2018 None Full Exam - General 1994 Eyes conjunctiva/eyelids Overall: conjunctiva clear 06/21/2018 None Full Exam - General 1994 Eyes conjunctiva/eyelids Overall: cornea clear 06/21/2018 None Full Exam - General 1994 Eyes conjunctiva/eyelids Overall: eyelids normal 06/21/2018 None Full Exam - General 1994 Eyes pupils and irises Overall: pupils equal, round, reactive to light and accomodation 06/21/2018 None Full Exam - General 1994 Ears/Nose/Throat otoscopic exam Overall: external auditory canals clear 06/21/2018 None Full Exam - General 1994 Ears/Nose/Throat otoscopic exam Tympanic membrane: retraction pocket 06/21/2018 scar from tympanostomy tube Full Exam - General 1994 Ears/Nose/Throat otoscopic exam Tympanic membrane: tympanosclerosis 06/21/2018 None Full Exam - General 1994 Ears/Nose/Throat lips/teeth/gingiva Overall: benign lips 06/21/2018 None Full Exam - General 1994 Ears/Nose/Throat lips/teeth/gingiva Overall: normal dentition 06/21/2018 None Full Exam - General 1994 Ears/Nose/Throat oral cavity/pharynx/larynx Overall: oral mucosa clear 06/21/2018 None Full Exam - General 1994 Ears/Nose/Throat oral cavity/pharynx/larynx Overall: oropharyngeal mucosa clear 06/21/2018 None Full Exam - General 1994 Ears/Nose/Throat oral cavity/pharynx/larynx Overall: hypopharynx benign 06/21/2018 None Full Exam - General 1994 Ears/Nose/Throat oral cavity/pharynx/larynx Overall: no masses 06/21/2018 None Full Exam - General 1994 Respiratory auscultation Overall: breath sounds clear bilaterally 06/21/2018 None Full Exam - General 1994 Respiratory respiratory effort/rhythm Overall: no retractions 06/21/2018 None Full Exam - General 1994 Respiratory respiratory effort/rhythm Overall: normal rate 06/21/2018 None Full Exam - General 1994 Cardiovascular extremities Overall: no clubbing 06/21/2018 None Full Exam - General 1994 Cardiovascular auscultation of heart Overall: regular rate 06/21/2018 None Full Exam - General 1994 Cardiovascular auscultation of heart Overall: normal heart sounds 06/21/2018 None Full Exam - General 1994 Cardiovascular auscultation of heart Systolic murmur: blowing 06/21/2018 None Full Exam - General 1994 Cardiovascular auscultation of heart Systolic murmur grade: III/ 06/21/2018 None Full Exam - General 1994 Abdomen abdominal exam Overall: no tenderness 06/21/2018 None Full Exam - General 1994 Abdomen abdominal exam Overall: normal bowel sounds 06/21/2018 None Full Exam - General 1994 Abdomen abdominal exam Contour: protuberant 06/21/2018 None Full Exam - General 1994 Abdomen abdominal exam Skin: presence of a scar 06/21/2018 None Full Exam - General 1994 Abdomen hernia exam Abdominal hernia present: non-tender 06/21/2018 diastasis recti Full Exam - General 1994 Lymphatic neck nodes Overall: anterior cervical chain benign 06/21/2018 None Full Exam - General 1994 Lymphatic neck nodes Overall: posterior cervical chain benign 06/21/2018 None Full Exam - General 1994 Musculoskeletal spine, ribs and pelvis Posture: a normal exam 06/21/2018 None Full Exam - General 1994 Musculoskeletal head and neck Overall: head atraumatic 06/21/2018 None Full Exam - General 1994 Musculoskeletal head and neck Overall: cervical spine benign 06/21/2018 None Full Exam - General 1994 Neurologic cranial nerves Overall: crainial nerves 2 - 12 grossly intact 06/21/2018 None Full Exam - General 1994 Psychiatric orientation/consciousness Overall: oriented to person, place and time 06/21/2018 None Full Exam - General 1994 Psychiatric mood and affect Overall: normal mood and affect 06/21/2018 None Full Exam - Cardiology Integument inspection/palpation Location: right hand 06/21/2018 erythema right index fing er with puncture leeann noted Full Exam - ENT Constitutional general appearance Overall: well nourished 05/14/2018 None Full Exam - ENT Constitutional general appearance Overall: well developed 05/14/2018 None Full Exam - ENT Constitutional general appearance Overall: in no acute distress 05/14/2018 None Full Exam - ENT Ears/Nose/Throat otoscopic exam Overall: external auditory canals normal 05/14/2018 None Full Exam - ENT Ears/Nose/Throat otoscopic exam Left tympanic membrane: air-fluid le abigail 05/14/2018 None Full Exam - ENT Ears/Nose/Throat otoscopic exam Right tympanic membrane: air-fluid level 05/14/2018 None Full Exam - ENT Ears/Nose/Throat lips/teeth/gingiva Overall: benign lips 05/14/2018 None Full Exam - ENT Ears/Nose/Throat oropharynx Overall: oral mucosa clear 05/14/2018 None Full Exam - ENT Ears/Nose/Throat oropharynx Posterior Pharynx: clear post nasal drainage 05/14/2018 None Full Exam - ENT Ears/Nose/Throat oropharynx Posterior Pharynx: erythema 05/14/2018 None Full Exam - ENT Respiratory inspection Overall: no retractions 05/14/2018 None Full Exam - ENT Respiratory inspection Overall: normal rate 03/2018 None Full Exam - ENT Respiratory auscultation Overall: breath sounds clear bilater ally 05/14/2018 None Full Exam - ENT Cardiovascular auscultation of heart Rate: normal rate 05/14/2018 None Full Exam - ENT Cardiovascular auscultation of heart Rhythm: regular rhythm 05/14/2018 None Full Exam - ENT Lymphatic palpation of lymph nodes Overall: anterior cervical chain benign 05/14/2018 None Full Exam - ENT Lymphatic palpation of lymph nodes Overall: posterior cervical chain benign 05/14/2018 None Full Exam - ENT Neurologic mood and affect Overall: normal mood 05/14/2018 None Full Exam - ENT Neurologic mood and affect Overall: normal affect 05/14/2018 None Full Exam - ENT Neurologic orientation Overall: oriented to person, place a nd time 05/14/2018 None Full Exam - ENT Constitutional general appearance Overall: well nourished 03/11/2018 None Full Exam - ENT Constitutional general appearance Overall: well developed 03/11/2018 None Full Exam - ENT Constitutional general appearance Overall: in no acute distress 03/11/2018 None Full Exam - ENT Ears/Nose/Throat otoscopic exam Overall: external auditory canals normal 03/11/2018 None Full Exam - ENT Ears/Nose/Throat otoscopic exam Left tympanic membrane: air-fluid le abigail 03/11/2018 None Full Exam - ENT Ears/Nose/Throat otoscopic exam Right tympanic membrane: air-fluid level 03/11/2018 None Full Exam - ENT Ears/Nose/Throat nasal mucosa, septum, turbinates Drainage: clear 03/11/2018 None Full Exam - ENT Ears/Nose/Throat nasal mucosa, septum, turbinates Drainage: yellow 03/11/2018 None Full Exam - ENT Ears/Nose/Throat lips/teeth/gingiva Overall: benign lips 03/11/2018 None Full Exam - ENT Ears/Nose/Throat oropharynx Posterior Pharynx: clear post nasal drainage 03/11/2018 None Full Exam - ENT Face and Head palpation Left maxillary sinus: tender 03/11/2018 None Full Exam - ENT Face and Head palpation Right maxillary sinus: tender 03/11/2018 None Full Exam - ENT Respiratory inspection Overall: no retractions 03/11/2018 None Full Exam - ENT Respiratory inspection Overall: normal rate None Full Exam - ENT Respiratory auscultation Overall: breath sounds clear bilater ally 03/11/2018 None Full Exam - ENT Cardiovascular auscultation of heart Overall: regular rate 03/11/2018 None Full Exam - ENT Cardiovascular auscultation of heart Overall: normal heart sounds 03/11/2018 None Full Exam - ENT Cardiovascular auscultation of heart Systolic murmur: blowing 03/11/2018 None Full Exam - ENT Cardiovascular auscultation of heart Systolic murmur grade: III/ 03/11/2018 None Full Exam - ENT Lymphatic palpation of lymph nodes Overall: anterior cervical chain benign 03/11/2018 None Full Exam - ENT Lymphatic palpation of lymph nodes Overall: posterior cervical chain benign 03/11/2018 None Full Exam - ENT Neurologic mood and affect Overall: normal mood 03/11/2018 None Full Exam - ENT Neurologic mood and affect Overall: normal affect 03/11/2018 None Full Exam - ENT Neurologic orientation Overall: oriented to person, place a nd time 03/11/2018 None Full Exam - ENT Respiratory auscultation Right lower lung field: expiratory w heezes 03/11/2018 None Full Exam - ENT Respiratory auscultation Left lower lung field: expiratory wh eezes 03/11/2018 None Full Exam - ENT Constitutional general appearance Overall: well nourished 02/10/2018 None Full Exam - ENT Constitutional general appearance Overall: well developed 02/10/2018 None Full Exam - ENT Constitutional general appearance Overall: in no acute distress 02/10/2018 None Full Exam - ENT Ears/Nose/Throat otoscopic exam Overall: external auditory canals normal 02/10/2018 None Full Exam - ENT Ears/Nose/Throat otoscopic exam Left tympanic membrane: air-fluid le abigail 02/10/2018 None Full Exam - ENT Ears/Nose/Throat otoscopic exam Right tympanic membrane: air-fluid level 02/10/2018 None Full Exam - ENT Ears/Nose/Throat nasal mucosa, septum, turbinates Drainage: clear 02/10/2018 None Full Exam - ENT Ears/Nose/Throat nasal mucosa, septum, turbinates Drainage: yellow 02/10/2018 None Full Exam - ENT Ears/Nose/Throat lips/teeth/gingiva Overall: benign lips 02/10/2018 None Full Exam - ENT Ears/Nose/Throat oropharynx Posterior Pharynx: clear post nasal drainage 02/10/2018 None Full Exam - ENT Face and Head palpation Left maxillary sinus: tender 02/10/2018 None Full Exam - ENT Face and Head palpation Right maxillary sinus: tender 02/10/2018 None Full Exam - ENT Respiratory inspection Overall: no retractions 02/10/2018 None Full Exam - ENT Respiratory inspection Overall: normal rate None Full Exam - ENT Respiratory auscultation Overall: breath sounds clear bilater ally 02/10/2018 None Full Exam - ENT Cardiovascular auscultation of heart Overall: regular rate 02/10/2018 None Full Exam - ENT Cardiovascular auscultation of heart Overall: normal heart sounds 02/10/2018 None Full Exam - ENT Lymphatic palpation of lymph nodes Overall: anterior cervical chain benign 02/10/2018 None Full Exam - ENT Lymphatic palpation of lymph nodes Overall: posterior cervical chain benign 02/10/2018 None Full Exam - ENT Neurologic mood and affect Overall: normal mood 02/10/2018 None Full Exam - ENT Neurologic mood and affect Overall: normal affect 02/10/2018 None Full Exam - ENT Neurologic orientation Overall: oriented to person, place a nd time 02/10/2018 None Full Exam - ENT Cardiovascular auscultation of heart Systolic murmur: blowing 02/10/2018 None Full Exam - ENT Cardiovascular auscultation of heart Systolic murmur grade: III/ 02/10/2018 None Full Exam - General 1994 Constitutional general appearance Overall: well developed 01/13/2018 None Full Exam - General 1994 Constitutional general appearance Overall: in no acute distress 01/13/2018 None Full Exam - General 1994 Constitutional general appearance Overall: well nourished 01/13/2018 None Full Exam - General 1994 Eyes conjunctiva/eyelids Overall: conjunctiva clear 01/13/2018 None Full Exam - General 1994 Eyes conjunctiva/eyelids Overall: eyelids normal 01/13/2018 None Full Exam - General 1994 Ears/Nose/Throat lips/teeth/gingiva Overall: benign lips 01/13/2018 None Full Exam - General 1994 Respiratory respiratory effort/rhythm Overall: no retractions 01/13/2018 None Full Exam - General 1994 Respiratory respiratory effort/rhythm Overall: normal rate 01/13/2018 None Full Exam - General 1994 Musculoskeletal head and neck Overall: head atraumatic 01/13/2018 None Full Exam - General 1994 Neurologic cranial nerves Overall: crainial nerves 2 - 12 grossly intact 01/13/2018 None Full Exam - General 1994 Psychiatric orientation/consciousness Overall: oriented to person, place and time 01/13/2018 None Full Exam - General 1994 Psychiatric mood and affect Overall: normal mood and affect 01/13/2018 None Full Exam - General 1994 Psychiatric appearance Overall: well-groomed, good eye contact 01/13/2018 None Full Exam - General 1994 Constitutional general appearance Development: well developed 12/23/2017 None Full Exam - General 1994 Constitutional general appearance Development: appears stated age 1012/23/2017 None Full Exam - General 1994 Constitutional general appearance Hygiene/Attention to Grooming: good hygiene 12/23/2017 None Full Exam - General 1994 Eyes conjunctiva/eyelids Overall: conjunctiva clear 12/23/2017 None Full Exam - General 1994 Eyes conjunctiva/eyelids Overall: cornea clear 12/23/2017 None Full Exam - General 1994 Eyes conjunctiva/eyelids Overall: eyelids normal 12/23/2017 None Full Exam - General 1994 Eyes pupils and irises Overall: pupils equal, round, reactive to light and accomodation 12/23/2017 None Full Exam - General 1994 Ears/Nose/Throat otoscopic exam Overall: external auditory canals clear 12/23/2017 None Full Exam - General 1994 Ears/Nose/Throat otoscopic exam Tympanic membrane: retraction pocket 12/23/2017 scar from tympanostomy tube Full Exam - General 1994 Ears/Nose/Throat otoscopic exam Tympanic membrane: tympanosclerosis 12/23/2017 None Full Exam - General 1994 Ears/Nose/Throat lips/teeth/gingiva Overall: benign lips 12/23/2017 None Full Exam - General 1994 Ears/Nose/Throat lips/teeth/gingiva Overall: normal dentition 12/23/2017 None Full Exam - General 1994 Ears/Nose/Throat oral cavity/pharynx/larynx Overall: oral mucosa clear 12/23/2017 None Full Exam - General 1994 Ears/Nose/Throat oral cavity/pharynx/larynx Overall: oropharyngeal mucosa clear 12/23/2017 None Full Exam - General 1994 Ears/Nose/Throat oral cavity/pharynx/larynx Overall: hypopharynx benign 12/23/2017 None Full Exam - General 1994 Ears/Nose/Throat oral cavity/pharynx/larynx Overall: no masses 12/23/2017 None Full Exam - General 1994 Respiratory auscultation Overall: breath sounds clear bilaterally 12/23/2017 None Full Exam - General 1994 Respiratory respiratory effort/rhythm Overall: no retractions 12/23/2017 None Full Exam - General 1994 Respiratory respiratory effort/rhythm Overall: normal rate 12/23/2017 None Full Exam - General 1994 Cardiovascular extremities Overall: no clubbing 12/23/2017 None Full Exam - General 1994 Cardiovascular auscultation of heart Overall: regular rate 12/23/2017 None Full Exam - General 1994 Cardiovascular auscultation of heart Overall: normal heart sounds 12/23/2017 None Full Exam - General 1994 Cardiovascular auscultation of heart Systolic murmur: blowing 12/23/2017 None Full Exam - General 1994 Cardiovascular auscultation of heart Systolic murmur grade: III/ 12/23/2017 None Full Exam - General 1994 Abdomen abdominal exam Overall: no tenderness 12/23/2017 None Full Exam - General 1994 Abdomen abdominal exam Overall: normal bowel sounds 12/23/2017 None Full Exam - General 1994 Abdomen abdominal exam Contour: protuberant 12/23/2017 None Full Exam - General 1994 Abdomen abdominal exam Skin: presence of a scar 12/23/2017 None Full Exam - General 1994 Abdomen hernia exam Abdominal hernia present: non-tender 12/23/2017 diastasis recti Full Exam - General 1994 Lymphatic neck nodes Overall: anterior cervical chain benign 12/23/2017 None Full Exam - General 1994 Lymphatic neck nodes Overall: posterior cervical chain benign 12/23/2017 None Full Exam - General 1994 Musculoskeletal spine, ribs and pelvis Posture: a normal exam 12/23/2017 None Full Exam - General 1994 Musculoskeletal head and neck Overall: head atraumatic 12/23/2017 None Full Exam - General 1994 Musculoskeletal head and neck Overall: cervical spine benign 12/23/2017 None Full Exam - General 1994 Neurologic cranial nerves Overall: crainial nerves 2 - 12 grossly intact 12/23/2017 None Full Exam - General 1994 Psychiatric orientation/consciousness Overall: oriented to person, place and time 12/23/2017 None Full Exam - General 1994 Psychiatric mood and affect Overall: normal mood and affect 12/23/2017 None Full Exam - General 1994 Constitutional general appearance Development: well developed 06/24/2017 None Full Exam - General 1994 Constitutional general appearance Development: appears stated age 0406/24/2017 None Full Exam - General 1994 Constitutional general appearance Hygiene/Attention to Grooming: good hygiene 06/24/2017 None Full Exam - General 1994 Eyes conjunctiva/eyelids Overall: conjunctiva clear 06/24/2017 None Full Exam - General 1994 Eyes conjunctiva/eyelids Overall: cornea clear 06/24/2017 None Full Exam - General 1994 Eyes conjunctiva/eyelids Overall: eyelids normal 06/24/2017 None Full Exam - General 1994 Eyes pupils and irises Overall: pupils equal, round, reactive to light and accomodation 06/24/2017 None Full Exam - General 1994 Ears/Nose/Throat otoscopic exam Overall: external auditory canals clear 06/24/2017 None Full Exam - General 1994 Ears/Nose/Throat otoscopic exam Tympanic membrane: retraction pocket 06/24/2017 scar from tympanostomy tube Full Exam - General 1994 Ears/Nose/Throat otoscopic exam Tympanic membrane: tympanosclerosis 06/24/2017 None Full Exam - General 1994 Ears/Nose/Throat lips/teeth/gingiva Overall: benign lips 06/24/2017 None Full Exam - General 1994 Ears/Nose/Throat lips/teeth/gingiva Overall: normal dentition 06/24/2017 None Full Exam - General 1994 Ears/Nose/Throat oral cavity/pharynx/larynx Overall: oral mucosa clear 06/24/2017 None Full Exam - General 1994 Ears/Nose/Throat oral cavity/pharynx/larynx Overall: oropharyngeal mucosa clear 06/24/2017 None Full Exam - General 1994 Ears/Nose/Throat oral cavity/pharynx/larynx Overall: hypopharynx benign 06/24/2017 None Full Exam - General 1994 Ears/Nose/Throat oral cavity/pharynx/larynx Overall: no masses 06/24/2017 None Full Exam - General 1994 Respiratory auscultation Overall: breath sounds clear bilaterally 06/24/2017 None Full Exam - General 1994 Respiratory respiratory effort/rhythm Overall: no retractions 06/24/2017 None Full Exam - General 1994 Respiratory respiratory effort/rhythm Overall: normal rate 06/24/2017 None Full Exam - General 1994 Cardiovascular extremities Overall: no clubbing 06/24/2017 None Full Exam - General 1994 Cardiovascular auscultation of heart Overall: regular rate 06/24/2017 None Full Exam - General 1994 Cardiovascular auscultation of heart Overall: normal heart sounds 06/24/2017 None Full Exam - General 1994 Cardiovascular auscultation of heart Systolic murmur: blowing 06/24/2017 None Full Exam - General 1994 Cardiovascular auscultation of heart Systolic murmur grade: III/ 06/24/2017 None Full Exam - General 1994 Abdomen abdominal exam Overall: no tenderness 06/24/2017 None Full Exam - General 1994 Abdomen abdominal exam Overall: normal bowel sounds 06/24/2017 None Full Exam - General 1994 Abdomen abdominal exam Contour: protuberant 06/24/2017 None Full Exam - General 1994 Abdomen abdominal exam Skin: presence of a scar 06/24/2017 None Full Exam - General 1994 Abdomen hernia exam Abdominal hernia present: non-tender 06/24/2017 diastasis recti Full Exam - General 1994 Lymphatic neck nodes Overall: anterior cervical chain benign 06/24/2017 None Full Exam - General 1994 Lymphatic neck nodes Overall: posterior cervical chain benign 06/24/2017 None Full Exam - General 1994 Neurologic deep tendon reflexes Overall: deep tendon reflexes intact 06/24/2017 None Full Exam - General 1994 Neurologic cranial nerves Overall: crainial nerves 2 - 12 grossly intact 06/24/2017 None Full Exam - General 1994 Psychiatric orientation/consciousness Overall: oriented to person, place and time 06/24/2017 None Full Exam - General 1994 Psychiatric mood and affect Overall: normal mood and affect 06/24/2017 None Full Exam - ENT Constitutional general appearance Overall: well nourished 03/17/2017 None Full Exam - ENT Constitutional general appearance Overall: well developed 03/17/2017 None Full Exam - ENT Constitutional general appearance Overall: in no acute distress 03/17/2017 None Full Exam - ENT Ears/Nose/Throat otoscopic exam Overall: external auditory canals normal 03/17/2017 None Full Exam - ENT Ears/Nose/Throat otoscopic exam Left tympanic membrane: air-fluid le abigail 03/17/2017 None Full Exam - ENT Ears/Nose/Throat otoscopic exam Right tympanic membrane: air-fluid level 03/17/2017 None Full Exam - ENT Ears/Nose/Throat nasal mucosa, septum, turbinates Drainage: clear 03/17/2017 None Full Exam - ENT Ears/Nose/Throat nasal mucosa, septum, turbinates Drainage: yellow 03/17/2017 None Full Exam - ENT Ears/Nose/Throat lips/teeth/gingiva Overall: benign lips 03/17/2017 None Full Exam - ENT Ears/Nose/Throat oropharynx Posterior Pharynx: clear post nasal drainage 03/17/2017 None Full Exam - ENT Face and Head palpation Left maxillary sinus: tender 03/17/2017 None Full Exam - ENT Face and Head palpation Right maxillary sinus: tender 03/17/2017 None Full Exam - ENT Respiratory inspection Overall: no retractions 03/17/2017 None Full Exam - ENT Respiratory inspection Overall: normal rate 04/2017 None Full Exam - ENT Respiratory auscultation Overall: breath sounds clear bilater ally 03/17/2017 None Full Exam - ENT Cardiovascular auscultation of heart Overall: regular rate 03/17/2017 None Full Exam - ENT Lymphatic palpation of lymph nodes Overall: anterior cervical chain benign 03/17/2017 None Full Exam - ENT Lymphatic palpation of lymph nodes Overall: posterior cervical chain benign 03/17/2017 None Full Exam - ENT Neurologic mood and affect Overall: normal mood 03/17/2017 None Full Exam - ENT Neurologic mood and affect Overall: normal affect 03/17/2017 None Full Exam - ENT Neurologic orientation Overall: oriented to person, place a nd time 03/17/2017 None Full Exam - ENT Cardiovascular auscultation of heart Rhythm: regular rhythm 03/17/2017 None Full Exam - ENT Cardiovascular auscultation of heart Systolic murmur grade: III/ 03/17/2017 None Full Exam - General 1994 Constitutional general appearance Development: well developed 12/24/2016 None Full Exam - General 1994 Constitutional general appearance Development: appears stated age 1012/24/2016 None Full Exam - General 1994 Constitutional general appearance Hygiene/Attention to Grooming: good hygiene 12/24/2016 None Full Exam - General 1994 Eyes conjunctiva/eyelids Overall: conjunctiva clear 12/24/2016 None Full Exam - General 1994 Eyes conjunctiva/eyelids Overall: cornea clear 12/24/2016 None Full Exam - General 1994 Eyes conjunctiva/eyelids Overall: eyelids normal 12/24/2016 None Full Exam - General 1994 Eyes pupils and irises Overall: pupils equal, round, reactive to light and accomodation 12/24/2016 None Full Exam - General 1994 Ears/Nose/Throat otoscopic exam Overall: external auditory canals clear 12/24/2016 None Full Exam - General 1994 Ears/Nose/Throat otoscopic exam Tympanic membrane: retraction pocket 12/24/2016 scar from tympanostomy tube Full Exam - General 1994 Ears/Nose/Throat otoscopic exam Tympanic membrane: tympanosclerosis 12/24/2016 None Full Exam - General 1994 Ears/Nose/Throat lips/teeth/gingiva Overall: benign lips 12/24/2016 None Full Exam - General 1994 Ears/Nose/Throat lips/teeth/gingiva Overall: normal dentition 12/24/2016 None Full Exam - General 1994 Ears/Nose/Throat oral cavity/pharynx/larynx Overall: oral mucosa clear 12/24/2016 None Full Exam - General 1994 Ears/Nose/Throat oral cavity/pharynx/larynx Overall: oropharyngeal mucosa clear 12/24/2016 None Full Exam - General 1994 Ears/Nose/Throat oral cavity/pharynx/larynx Overall: hypopharynx benign 12/24/2016 None Full Exam - General 1994 Ears/Nose/Throat oral cavity/pharynx/larynx Overall: no masses 12/24/2016 None Full Exam - General 1994 Respiratory auscultation Overall: breath sounds clear bilaterally 12/24/2016 None Full Exam - General 1994 Respiratory respiratory effort/rhythm Overall: no retractions 12/24/2016 None Full Exam - General 1994 Respiratory respiratory effort/rhythm Overall: normal rate 12/24/2016 None Full Exam - General 1994 Cardiovascular extremities Overall: no clubbing 12/24/2016 None Full Exam - General 1994 Cardiovascular auscultation of heart Overall: regular rate 12/24/2016 None Full Exam - General 1994 Cardiovascular auscultation of heart Overall: normal heart sounds 12/24/2016 None Full Exam - General 1994 Cardiovascular auscultation of heart Systolic murmur: blowing 12/24/2016 None Full Exam - General 1994 Cardiovascular auscultation of heart Systolic murmur grade: III/ 12/24/2016 None Full Exam - General 1994 Abdomen abdominal exam Overall: no tenderness 12/24/2016 None Full Exam - General 1994 Abdomen abdominal exam Overall: normal bowel sounds 12/24/2016 None Full Exam - General 1994 Abdomen abdominal exam Contour: protuberant 12/24/2016 None Full Exam - General 1994 Abdomen abdominal exam Skin: presence of a scar 12/24/2016 None Full Exam - General 1994 Abdomen hernia exam Abdominal hernia present: non-tender 12/24/2016 diastasis recti Full Exam - General 1994 Lymphatic neck nodes Overall: anterior cervical chain benign 12/24/2016 None Full Exam - General 1994 Lymphatic neck nodes Overall: posterior cervical chain benign 12/24/2016 None Full Exam - General 1994 Musculoskeletal spine, ribs and pelvis Posture: a normal exam 12/24/2016 None Full Exam - General 1994 Musculoskeletal head and neck Overall: head atraumatic 12/24/2016 None Full Exam - General 1994 Musculoskeletal head and neck Overall: cervical spine benign 12/24/2016 None Full Exam - General 1994 Neurologic cranial nerves Overall: crainial nerves 2 - 12 grossly intact 12/24/2016 None Full Exam - General 1994 Psychiatric orientation/consciousness Overall: oriented to person, place and time 12/24/2016 None Full Exam - General 1994 Psychiatric mood and affect Overall: normal mood and affect 12/24/2016 None Full Exam - General 1994 Constitutional general appearance Overall: well developed 11/18/2016 None Full Exam - General 1994 Constitutional general appearance Overall: in no acute distress 11/18/2016 None Full Exam - General 1994 Constitutional general appearance Overall: well nourished 11/18/2016 None Full Exam - General 1994 Eyes conjunctiva/eyelids Overall: conjunctiva clear 11/18/2016 None Full Exam - General 1994 Eyes conjunctiva/eyelids Overall: eyelids normal 11/18/2016 None Full Exam - General 1994 Ears/Nose/Throat otoscopic exam Overall: tympanic membranes clear 11/18/2016 None Full Exam - General 1994 Ears/Nose/Throat otoscopic exam External auditory canal: partial cerumen occlusion 11/18/2016 None Full Exam - General 1994 Ears/Nose/Throat lips/teeth/gingiva Overall: benign lips 11/18/2016 None Full Exam - General 1994 Ears/Nose/Throat oral cavity/pharynx/larynx Overall: oral mucosa clear 11/18/2016 None Full Exam - General 1994 Ears/Nose/Throat oral cavity/pharynx/larynx Posterior Pharynx: clear post nasal drainage 11/18/2016 None Full Exam - General 1994 Respiratory respiratory effort/rhythm Overall: no retractions 11/18/2016 None Full Exam - General 1994 Respiratory respiratory effort/rhythm Overall: normal rate 11/18/2016 None Full Exam - General 1994 Respiratory auscultation Lower lung field: expiratory wheezes 11/18/2016 None Full Exam - General 1994 Respiratory auscultation Upper lung field: expiratory wheezes 11/18/2016 faint Full Exam - General 1994 Cardiovascular auscultation of heart Overall: regular rate 11/18/2016 None Full Exam - General 1994 Cardiovascular auscultation of heart Overall: normal heart sounds 11/18/2016 None Full Exam - General 1994 Cardiovascular auscultation of heart Systolic murmur: blowing 11/18/2016 None Full Exam - General 1994 Cardiovascular auscultation of heart Systolic murmur grade: III/ 11/18/2016 None Full Exam - General 1994 Lymphatic neck nodes Overall: posterior cervical chain benign 11/18/2016 None Full Exam - General 1994 Lymphatic neck nodes Overall: anterior cervical chain benign 11/18/2016 None Full Exam - General 1994 Musculoskeletal head and neck Overall: head atraumatic 11/18/2016 None Full Exam - General 1994 Neurologic cranial nerves Overall: crainial nerves 2 - 12 grossly intact 11/18/2016 None Full Exam - General 1994 Psychiatric orientation/consciousness Overall: oriented to person, place and time 11/18/2016 None Full Exam - General 1994 Psychiatric mood and affect Overall: normal mood and affect 11/18/2016 None Full Exam - General 1994 Psychiatric appearance Overall: well-groomed, good eye contact 11/18/2016 None Full Exam - General 1994 Constitutional general appearance Development: well developed 06/24/2016 None Full Exam - General 1994 Constitutional general appearance Development: appears stated age 0406/24/2016 None Full Exam - General 1994 Constitutional general appearance Hygiene/Attention to Grooming: good hygiene 06/24/2016 None Full Exam - General 1994 Eyes conjunctiva/eyelids Overall: conjunctiva clear 06/24/2016 None Full Exam - General 1994 Eyes conjunctiva/eyelids Overall: cornea clear 06/24/2016 None Full Exam - General 1994 Eyes conjunctiva/eyelids Overall: eyelids normal 06/24/2016 None Full Exam - General 1994 Eyes pupils and irises Overall: pupils equal, round, reactive to light and accomodation 06/24/2016 None Full Exam - General 1994 Ears/Nose/Throat otoscopic exam Overall: external auditory canals clear 06/24/2016 None Full Exam - General 1994 Ears/Nose/Throat otoscopic exam Tympanic membrane: retraction pocket 06/24/2016 scar from tympanostomy tube Full Exam - General 1994 Ears/Nose/Throat otoscopic exam Tympanic membrane: tympanosclerosis 06/24/2016 None Full Exam - General 1994 Ears/Nose/Throat lips/teeth/gingiva Overall: benign lips 06/24/2016 None Full Exam - General 1994 Ears/Nose/Throat lips/teeth/gingiva Overall: normal dentition 06/24/2016 None Full Exam - General 1994 Ears/Nose/Throat oral cavity/pharynx/larynx Overall: oral mucosa clear 06/24/2016 None Full Exam - General 1994 Ears/Nose/Throat oral cavity/pharynx/larynx Overall: oropharyngeal mucosa clear 06/24/2016 None Full Exam - General 1994 Ears/Nose/Throat oral cavity/pharynx/larynx Overall: hypopharynx benign 06/24/2016 None Full Exam - General 1994 Ears/Nose/Throat oral cavity/pharynx/larynx Overall: no masses 06/24/2016 None Full Exam - General 1994 Neck inspection of neck Size: thick 06/24/2016 None Full Exam - General 1994 Respiratory auscultation Overall: breath sounds clear bilaterally 06/24/2016 None Full Exam - General 1994 Respiratory respiratory effort/rhythm Overall: no retractions 06/24/2016 None Full Exam - General 1994 Respiratory respiratory effort/rhythm Overall: normal rate 06/24/2016 None Full Exam - General 1994 Cardiovascular extremities Overall: no clubbing 06/24/2016 None Full Exam - General 1994 Cardiovascular auscultation of heart Overall: regular rate 06/24/2016 None Full Exam - General 1994 Cardiovascular auscultation of heart Overall: normal heart sounds 06/24/2016 None Full Exam - General 1994 Cardiovascular auscultation of heart Systolic murmur: blowing 06/24/2016 None Full Exam - General 1994 Cardiovascular auscultation of heart Systolic murmur grade: III/ 06/24/2016 None Full Exam - General 1994 Abdomen abdominal exam Overall: no tenderness 06/24/2016 None Full Exam - General 1994 Abdomen abdominal exam Overall: normal bowel sounds 06/24/2016 None Full Exam - General 1994 Abdomen abdominal exam Contour: protuberant 06/24/2016 None Full Exam - General 1994 Abdomen abdominal exam Skin: presence of a scar 06/24/2016 None Full Exam - General 1994 Abdomen hernia exam Abdominal hernia present: non-tender 06/24/2016 diastasis recti Full Exam - General 1994 Lymphatic neck nodes Overall: anterior cervical chain benign 06/24/2016 None Full Exam - General 1994 Lymphatic neck nodes Overall: posterior cervical chain benign 06/24/2016 None Full Exam - General 1994 Neurologic deep tendon reflexes Overall: deep tendon reflexes intact 06/24/2016 None Full Exam - General 1994 Neurologic cranial nerves Overall: crainial nerves 2 - 12 grossly intact 06/24/2016 None Full Exam - General 1994 Psychiatric orientation/consciousness Overall: oriented to person, place and time 06/24/2016 None Full Exam - General 1994 Psychiatric mood and affect Overall: normal mood and affect 06/24/2016 None Full Exam - General 1994 Constitutional general appearance Development: well developed 05/20/2016 None Full Exam - General 1994 Constitutional general appearance Development: appears stated age 0305/20/2016 None Full Exam - General 1994 Constitutional general appearance Hygiene/Attention to Grooming: good hygiene 05/20/2016 None Full Exam - General 1994 Eyes conjunctiva/eyelids Overall: conjunctiva clear 05/20/2016 None Full Exam - General 1994 Eyes conjunctiva/eyelids Overall: cornea clear 05/20/2016 None Full Exam - General 1994 Eyes conjunctiva/eyelids Overall: eyelids normal 05/20/2016 None Full Exam - General 1994 Eyes pupils and irises Overall: pupils equal, round, reactive to light and accomodation 05/20/2016 None Full Exam - General 1994 Ears/Nose/Throat otoscopic exam Overall: external auditory canals clear 05/20/2016 None Full Exam - General 1994 Ears/Nose/Throat otoscopic exam Tympanic membrane: retraction pocket 05/20/2016 scar from tympanostomy tube Full Exam - General 1994 Ears/Nose/Throat lips/teeth/gingiva Overall: benign lips 05/20/2016 None Full Exam - General 1994 Ears/Nose/Throat lips/teeth/gingiva Overall: normal dentition 05/20/2016 None Full Exam - General 1994 Respiratory auscultation Overall: breath sounds clear bilaterally 05/20/2016 None Full Exam - General 1994 Respiratory respiratory effort/rhythm Overall: no retractions 05/20/2016 None Full Exam - General 1994 Respiratory respiratory effort/rhythm Overall: normal rate 05/20/2016 None Full Exam - General 1994 Cardiovascular extremities Overall: no clubbing 05/20/2016 None Full Exam - General 1994 Cardiovascular auscultation of heart Overall: regular rate 05/20/2016 None Full Exam - General 1994 Cardiovascular auscultation of heart Overall: normal heart sounds 05/20/2016 None Full Exam - General 1994 Cardiovascular auscultation of heart Systolic murmur: blowing 05/20/2016 None Full Exam - General 1994 Cardiovascular auscultation of heart Systolic murmur grade: III/ 05/20/2016 None Full Exam - General 1994 Abdomen abdominal exam Overall: no tenderness 05/20/2016 None Full Exam - General 1994 Abdomen abdominal exam Overall: normal bowel sounds 05/20/2016 None Full Exam - General 1994 Abdomen abdominal exam Contour: protuberant 05/20/2016 None Full Exam - General 1994 Abdomen abdominal exam Skin: presence of a scar 05/20/2016 None Full Exam - General 1994 Musculoskeletal spine, ribs and pelvis Posture: a normal exam 05/20/2016 None Full Exam - General 1994 Musculoskeletal head and neck Overall: head atraumatic 05/20/2016 None Full Exam - General 1994 Musculoskeletal head and neck Overall: cervical spine benign 05/20/2016 None Full Exam - General 1994 Neurologic deep tendon reflexes Overall: deep tendon reflexes intact 05/20/2016 None Full Exam - General 1994 Neurologic cranial nerves Overall: crainial nerves 2 - 12 grossly intact 05/20/2016 None Full Exam - General 1994 Psychiatric orientation/consciousness Overall: oriented to person, place and time 05/20/2016 None Full Exam - General 1994 Psychiatric mood and affect Overall: normal mood and affect 05/20/2016 None Full Exam - General 1994 Ears/Nose/Throat otoscopic exam Tympanic membrane: tympanosclerosis 05/20/2016 None Full Exam - General 1994 Ears/Nose/Throat oral cavity/pharynx/larynx Oral mucosa: thrush 05/20/2016 None Full Exam - General 1994 Constitutional general appearance Overall: well developed 05/09/2016 None Full Exam - General 1994 Constitutional general appearance Overall: in no acute distress 05/09/2016 None Full Exam - General 1994 Constitutional general appearance Overall: well nourished 05/09/2016 None Full Exam - General 1994 Constitutional general appearance Hygiene/Attention to Grooming: good hygiene 05/09/2016 None Full Exam - General 1994 Eyes conjunctiva/eyelids Overall: conjunctiva clear 05/09/2016 None Full Exam - General 1994 Eyes conjunctiva/eyelids Overall: eyelids normal 05/09/2016 None Full Exam - General 1994 Eyes pupils and irises Overall: pupils equal, round, reactive to light and accomodation 05/09/2016 None Full Exam - General 1994 Ears/Nose/Throat otoscopic exam Overall: external auditory canals clear 05/09/2016 None Full Exam - General 1994 Ears/Nose/Throat otoscopic exam Tympanic membrane: perforated 05/09/2016 None Full Exam - General 1994 Ears/Nose/Throat lips/teeth/gingiva Overall: benign lips 05/09/2016 None Full Exam - General 1994 Ears/Nose/Throat oral cavity/pharynx/larynx Overall: oral mucosa clear 05/09/2016 None Full Exam - General 1994 Respiratory auscultation Diffuse: diminished 05/09/2016 None Full Exam - General 1994 Respiratory respiratory effort/rhythm Overall: no retractions 05/09/2016 None Full Exam - General 1994 Respiratory respiratory effort/rhythm Overall: normal rate 05/09/2016 None Full Exam - General 1994 Cardiovascular extremities Overall: no clubbing 05/09/2016 None Full Exam - General 1994 Cardiovascular auscultation of heart Overall: regular rate 05/09/2016 None Full Exam - General 1994 Cardiovascular auscultation of heart Overall: normal heart sounds 05/09/2016 None Full Exam - General 1994 Cardiovascular auscultation of heart Systolic murmur: blowing 05/09/2016 None Full Exam - General 1994 Cardiovascular auscultation of heart Systolic murmur grade: III/ 05/09/2016 None Full Exam - General 1994 Abdomen abdominal exam Contour: rounded 05/09/2016 None Full Exam - General 1994 Lymphatic neck nodes Overall: anterior cervical chain benign 05/09/2016 None Full Exam - General 1994 Lymphatic neck nodes Overall: posterior cervical chain benign 05/09/2016 None Full Exam - General 1994 Musculoskeletal head and neck Overall: head atraumatic 05/09/2016 None Full Exam - General 1994 Neurologic cranial nerves Overall: crainial nerves 2 - 12 grossly intact 05/09/2016 None Full Exam - General 1994 Psychiatric orientation/consciousness Overall: oriented to person, place and time 05/09/2016 None Full Exam - General 1994 Psychiatric mood and affect Overall: normal mood and affect 05/09/2016 None Full Exam - General 1994 Psychiatric appearance Overall: well-groomed, good eye contact 05/09/2016 None Full Exam - General 1994 Respiratory auscultation Diffuse: expiratory wheezes 05/09/2016 None Full Exam - General 1994 Constitutional general appearance Hygiene/Attention to Grooming: good hygiene 04/28/2016 None Full Exam - General 1994 Eyes conjunctiva/eyelids Overall: conjunctiva clear 04/28/2016 None Full Exam - General 1994 Eyes conjunctiva/eyelids Overall: eyelids normal 04/28/2016 None Full Exam - General 1994 Eyes pupils and irises Overall: pupils equal, round, reactive to light and accomodation 04/28/2016 None Full Exam - General 1994 Ears/Nose/Throat otoscopic exam Overall: external auditory canals clear 04/28/2016 None Full Exam - General 1994 Ears/Nose/Throat otoscopic exam Tympanic membrane: perforated 04/28/2016 None Full Exam - General 1994 Ears/Nose/Throat lips/teeth/gingiva Overall: benign lips 04/28/2016 None Full Exam - General 1994 Ears/Nose/Throat oral cavity/pharynx/larynx Overall: oral mucosa clear 04/28/2016 None Full Exam - General 1994 Respiratory auscultation Diffuse: diminished 04/28/2016 None Full Exam - General 1994 Respiratory respiratory effort/rhythm Overall: no retractions 04/28/2016 None Full Exam - General 1994 Respiratory respiratory effort/rhythm Overall: normal rate 04/28/2016 None Full Exam - General 1994 Cardiovascular extremities Overall: no clubbing 04/28/2016 None Full Exam - General 1994 Cardiovascular auscultation of heart Overall: regular rate 04/28/2016 None Full Exam - General 1994 Cardiovascular auscultation of heart Overall: normal heart sounds 04/28/2016 None Full Exam - General 1994 Cardiovascular auscultation of heart Systolic murmur: blowing 04/28/2016 None Full Exam - General 1994 Cardiovascular auscultation of heart Systolic murmur grade: III/ 04/28/2016 None Full Exam - General 1994 Abdomen abdominal exam Contour: rounded 04/28/2016 None Full Exam - General 1994 Lymphatic neck nodes Overall: anterior cervical chain benign 04/28/2016 None Full Exam - General 1994 Lymphatic neck nodes Overall: posterior cervical chain benign 04/28/2016 None Full Exam - General 1994 Musculoskeletal head and neck Overall: head atraumatic 04/28/2016 None Full Exam - General 1994 Neurologic cranial nerves Overall: crainial nerves 2 - 12 grossly intact 04/28/2016 None Full Exam - General 1994 Psychiatric orientation/consciousness Overall: oriented to person, place and time 04/28/2016 None Full Exam - General 1994 Psychiatric mood and affect Overall: normal mood and affect 04/28/2016 None Full Exam - General 1994 Constitutional general appearance Overall: well developed 04/28/2016 None Full Exam - General 1994 Constitutional general appearance Overall: in no acute distress 04/28/2016 None Full Exam - General 1994 Constitutional general appearance Overall: well nourished 04/28/2016 None Full Exam - General 1994 Ears/Nose/Throat oral cavity/pharynx/larynx Posterior Pharynx: clear post nasal drainage 04/28/2016 None Full Exam - General 1994 Respiratory auscultation Overall: breath sounds clear bilaterally 04/28/2016 None Full Exam - General 1994 Psychiatric appearance Overall: well-groomed, good eye contact 04/28/2016 None Full Exam - General 1994 Ears/Nose/Throat oral cavity/pharynx/larynx Oropharynx: erythema 04/28/2016 None Full Exam - General 1994 Constitutional general appearance Development: well developed 04/04/2016 None Full Exam - General 1994 Constitutional general appearance Development: appears stated age 0104/04/2016 None Full Exam - General 1994 Constitutional general appearance Hygiene/Attention to Grooming: good hygiene 04/04/2016 None Full Exam - General 1994 Eyes conjunctiva/eyelids Overall: conjunctiva clear 04/04/2016 None Full Exam - General 1994 Eyes conjunctiva/eyelids Overall: cornea clear 04/04/2016 None Full Exam - General 1994 Eyes conjunctiva/eyelids Overall: eyelids normal 04/04/2016 None Full Exam - General 1994 Eyes pupils and irises Overall: pupils equal, round, reactive to light and accomodation 04/04/2016 None Full Exam - General 1994 Ears/Nose/Throat otoscopic exam Overall: external auditory canals clear 04/04/2016 None Full Exam - General 1994 Ears/Nose/Throat otoscopic exam Tympanic membrane: perforated 04/04/2016 None Full Exam - General 1994 Ears/Nose/Throat lips/teeth/gingiva Overall: benign lips 04/04/2016 None Full Exam - General 1994 Ears/Nose/Throat lips/teeth/gingiva Overall: normal dentition 04/04/2016 None Full Exam - General 1994 Ears/Nose/Throat oral cavity/pharynx/larynx Overall: oral mucosa clear 04/04/2016 None Full Exam - General 1994 Respiratory auscultation Diffuse: diminished 04/04/2016 None Full Exam - General 1994 Respiratory auscultation Diffuse: expiratory wheezes 04/04/2016 None Full Exam - General 1994 Respiratory respiratory effort/rhythm Overall: no retractions 04/04/2016 None Full Exam - General 1994 Respiratory respiratory effort/rhythm Overall: normal rate 04/04/2016 None Full Exam - General 1994 Cardiovascular extremities Overall: no clubbing 04/04/2016 None Full Exam - General 1994 Cardiovascular auscultation of heart Overall: regular rate 04/04/2016 None Full Exam - General 1994 Cardiovascular auscultation of heart Overall: normal heart sounds 04/04/2016 None Full Exam - General 1994 Cardiovascular auscultation of heart Systolic murmur: blowing 04/04/2016 None Full Exam - General 1994 Cardiovascular auscultation of heart Systolic murmur grade: III/ 04/04/2016 None Full Exam - General 1994 Abdomen abdominal exam Contour: rounded 04/04/2016 None Full Exam - General 1994 Lymphatic neck nodes Overall: anterior cervical chain benign 04/04/2016 None Full Exam - General 1994 Lymphatic neck nodes Overall: posterior cervical chain benign 04/04/2016 None Full Exam - General 1994 Musculoskeletal head and neck Overall: head atraumatic 04/04/2016 None Full Exam - General 1994 Neurologic cranial nerves Overall: crainial nerves 2 - 12 grossly intact 04/04/2016 None Full Exam - General 1994 Psychiatric orientation/consciousness Overall: oriented to person, place and time 04/04/2016 None Full Exam - General 1994 Psychiatric mood and affect Overall: normal mood and affect 04/04/2016 None Full Exam - General 1994 Constitutional general appearance Development: well developed 03/28/2016 None Full Exam - General 1994 Constitutional general appearance Development: appears stated age 0103/28/2016 None Full Exam - General 1994 Constitutional general appearance Hygiene/Attention to Grooming: good hygiene 03/28/2016 None Full Exam - General 1994 Eyes conjunctiva/eyelids Overall: conjunctiva clear 03/28/2016 None Full Exam - General 1994 Eyes conjunctiva/eyelids Overall: cornea clear 03/28/2016 None Full Exam - General 1994 Eyes conjunctiva/eyelids Overall: eyelids normal 03/28/2016 None Full Exam - General 1994 Eyes pupils and irises Overall: pupils equal, round, reactive to light and accomodation 03/28/2016 None Full Exam - General 1994 Ears/Nose/Throat otoscopic exam Overall: external auditory canals clear 03/28/2016 None Full Exam - General 1994 Ears/Nose/Throat lips/teeth/gingiva Overall: benign lips 03/28/2016 None Full Exam - General 1994 Ears/Nose/Throat lips/teeth/gingiva Overall: normal dentition 03/28/2016 None Full Exam - General 1994 Respiratory auscultation Diffuse: diminished 03/28/2016 None Full Exam - General 1994 Respiratory respiratory effort/rhythm Overall: no retractions 03/28/2016 None Full Exam - General 1994 Respiratory respiratory effort/rhythm Overall: normal rate 03/28/2016 None Full Exam - General 1994 Cardiovascular extremities Overall: no clubbing 03/28/2016 None Full Exam - General 1994 Cardiovascular auscultation of heart Overall: regular rate 03/28/2016 None Full Exam - General 1994 Cardiovascular auscultation of heart Overall: normal heart sounds 03/28/2016 None Full Exam - General 1994 Cardiovascular auscultation of heart Systolic murmur: blowing 03/28/2016 None Full Exam - General 1994 Cardiovascular auscultation of heart Systolic murmur grade: III/ 03/28/2016 None Full Exam - General 1994 Lymphatic neck nodes Overall: anterior cervical chain benign 03/28/2016 None Full Exam - General 1994 Lymphatic neck nodes Overall: posterior cervical chain benign 03/28/2016 None Full Exam - General 1994 Musculoskeletal head and neck Overall: head atraumatic 03/28/2016 None Full Exam - General 1994 Neurologic cranial nerves Overall: crainial nerves 2 - 12 grossly intact 03/28/2016 None Full Exam - General 1994 Psychiatric orientation/consciousness Overall: oriented to person, place and time 03/28/2016 None Full Exam - General 1994 Psychiatric mood and affect Overall: normal mood and affect 03/28/2016 None Full Exam - General 1994 Respiratory auscultation Diffuse: expiratory wheezes 03/28/2016 None Full Exam - General 1994 Ears/Nose/Throat otoscopic exam Tympanic membrane: perforated 03/28/2016 tube removed from canal Full Exam - General 1994 Ears/Nose/Throat oral cavity/pharynx/larynx Overall: oral mucosa clear 03/28/2016 None Full Exam - General 1994 Abdomen abdominal exam Contour: rounded 03/28/2016 None Full Exam - ENT Constitutional general appearance Overall: well nourished 02/13/2016 None Full Exam - ENT Constitutional general appearance Overall: well developed 02/13/2016 None Full Exam - ENT Constitutional general appearance Overall: in no acute distress 02/13/2016 None Full Exam - ENT Ears/Nose/Throat otoscopic exam Overall: external auditory canals normal 02/13/2016 None Full Exam - ENT Ears/Nose/Throat otoscopic exam Right tympanic membrane: air-fluid level 02/13/2016 None Full Exam - ENT Ears/Nose/Throat otoscopic exam Left tympanic membrane: air-fluid le abigail 02/13/2016 None Full Exam - ENT Ears/Nose/Throat lips/teeth/gingiva Overall: benign lips 02/13/2016 None Full Exam - ENT Ears/Nose/Throat oropharynx Posterior Pharynx: clear post nasal drainage 02/13/2016 None Full Exam - ENT Face and Head palpation Right maxillary sinus: tender 02/13/2016 None Full Exam - ENT Face and Head palpation Left maxillary sinus: tender 02/13/2016 None Full Exam - ENT Respiratory inspection Overall: no retractions 02/13/2016 None Full Exam - ENT Respiratory inspection Overall: normal rate None Full Exam - ENT Respiratory auscultation Overall: breath sounds clear bilater ally 02/13/2016 None Full Exam - ENT Cardiovascular auscultation of heart Overall: regular rate 02/13/2016 None Full Exam - ENT Cardiovascular auscultation of heart Overall: normal heart sounds 02/13/2016 None Full Exam - ENT Lymphatic palpation of lymph nodes Overall: posterior cervical chain benign 02/13/2016 None Full Exam - ENT Lymphatic palpation of lymph nodes Overall: anterior cervical chain benign 02/13/2016 None Full Exam - ENT Neurologic mood and affect Overall: normal mood 02/13/2016 None Full Exam - ENT Neurologic mood and affect Overall: normal affect 02/13/2016 None Full Exam - ENT Neurologic orientation Overall: oriented to person, place a nd time 02/13/2016 None Full Exam - General 1994 Constitutional general appearance Development: well developed 08/02/2015 None Full Exam - General 1994 Constitutional general appearance Development: appears stated age 0508/02/2015 None Full Exam - General 1994 Constitutional general appearance Hygiene/Attention to Grooming: good hygiene 08/02/2015 None Full Exam - General 1994 Eyes conjunctiva/eyelids Overall: conjunctiva clear 08/02/2015 None Full Exam - General 1994 Eyes conjunctiva/eyelids Overall: cornea clear 08/02/2015 None Full Exam - General 1994 Eyes conjunctiva/eyelids Overall: eyelids normal 08/02/2015 None Full Exam - General 1994 Eyes pupils and irises Overall: pupils equal, round, reactive to light and accomodation 08/02/2015 None Full Exam - General 1994 Ears/Nose/Throat otoscopic exam Overall: external auditory canals clear 08/02/2015 None Full Exam - General 1994 Ears/Nose/Throat otoscopic exam Tympanic membrane: tympanosclerosis 08/02/2015 None Full Exam - General 1994 Ears/Nose/Throat lips/teeth/gingiva Overall: benign lips 08/02/2015 None Full Exam - General 1994 Ears/Nose/Throat lips/teeth/gingiva Overall: normal dentition 08/02/2015 None Full Exam - General 1994 Respiratory respiratory effort/rhythm Overall: no retractions 08/02/2015 None Full Exam - General 1994 Respiratory respiratory effort/rhythm Overall: normal rate 08/02/2015 None Full Exam - General 1994 Cardiovascular extremities Overall: no clubbing 08/02/2015 None Full Exam - General 1994 Cardiovascular auscultation of heart Overall: regular rate 08/02/2015 None Full Exam - General 1994 Cardiovascular auscultation of heart Overall: normal heart sounds 08/02/2015 None Full Exam - General 1994 Cardiovascular auscultation of heart Systolic murmur: blowing 08/02/2015 None Full Exam - General 1994 Cardiovascular auscultation of heart Systolic murmur grade: III/ 08/02/2015 None Full Exam - General 1994 Lymphatic neck nodes Overall: anterior cervical chain benign 08/02/2015 None Full Exam - General 1994 Lymphatic neck nodes Overall: posterior cervical chain benign 08/02/2015 None Full Exam - General 1994 Musculoskeletal head and neck Overall: head atraumatic 08/02/2015 None Full Exam - General 1994 Neurologic cranial nerves Overall: crainial nerves 2 - 12 grossly intact 08/02/2015 None Full Exam - General 1994 Psychiatric orientation/consciousness Overall: oriented to person, place and time 08/02/2015 None Full Exam - General 1994 Psychiatric mood and affect Overall: normal mood and affect 08/02/2015 None Full Exam - General 1994 Ears/Nose/Throat internal nose Drainage: clear 08/02/2015 None Full Exam - General 1994 Ears/Nose/Throat internal nose Drainage: yellow 08/02/2015 None Full Exam - General 1994 Ears/Nose/Throat internal nose Sinus tenderness: left maxillary 08/02/2015 None Full Exam - General 1994 Ears/Nose/Throat internal nose Sinus tenderness: right maxillary 08/02/2015 None Full Exam - General 1994 Ears/Nose/Throat oral cavity/pharynx/larynx Posterior Pharynx: clear post nasal drainage 08/02/2015 None Full Exam - General 1994 Ears/Nose/Throat oral cavity/pharynx/larynx Oropharynx: erythema 08/02/2015 None Full Exam - General 1994 Respiratory auscultation Diffuse: diminished 08/02/2015 None Full Exam - General 1994 Respiratory auscultation Lower lung field: expiratory wheezes 08/02/2015 None Full Exam - General 1994 Abdomen abdominal exam Contour: protuberant 08/02/2015 None Full Exam - General 1994 Constitutional general appearance Development: well developed 06/22/2015 None Full Exam - General 1994 Constitutional general appearance Development: appears stated age 0406/22/2015 None Full Exam - General 1994 Constitutional general appearance Hygiene/Attention to Grooming: good hygiene 06/22/2015 None Full Exam - General 1994 Eyes conjunctiva/eyelids Overall: conjunctiva clear 06/22/2015 None Full Exam - General 1994 Eyes conjunctiva/eyelids Overall: cornea clear 06/22/2015 None Full Exam - General 1994 Eyes conjunctiva/eyelids Overall: eyelids normal 06/22/2015 None Full Exam - General 1994 Eyes pupils and irises Overall: pupils equal, round, reactive to light and accomodation 06/22/2015 None Full Exam - General 1994 Ears/Nose/Throat otoscopic exam Overall: external auditory canals clear 06/22/2015 None Full Exam - General 1994 Ears/Nose/Throat otoscopic exam Tympanic membrane: retraction pocket 06/22/2015 scar from tympanostomy tube Full Exam - General 1994 Ears/Nose/Throat otoscopic exam Tympanic membrane: tympanosclerosis 06/22/2015 None Full Exam - General 1994 Ears/Nose/Throat lips/teeth/gingiva Overall: benign lips 06/22/2015 None Full Exam - General 1994 Ears/Nose/Throat lips/teeth/gingiva Overall: normal dentition 06/22/2015 None Full Exam - General 1994 Ears/Nose/Throat oral cavity/pharynx/larynx Overall: oral mucosa clear 06/22/2015 None Full Exam - General 1994 Ears/Nose/Throat oral cavity/pharynx/larynx Overall: oropharyngeal mucosa clear 06/22/2015 None Full Exam - General 1994 Ears/Nose/Throat oral cavity/pharynx/larynx Overall: hypopharynx benign 06/22/2015 None Full Exam - General 1994 Ears/Nose/Throat oral cavity/pharynx/larynx Overall: no masses 06/22/2015 None Full Exam - General 1994 Neck inspection of neck Size: thick 06/22/2015 None Full Exam - General 1994 Respiratory auscultation Overall: breath sounds clear bilaterally 06/22/2015 None Full Exam - General 1994 Respiratory respiratory effort/rhythm Overall: no retractions 06/22/2015 None Full Exam - General 1994 Respiratory respiratory effort/rhythm Overall: normal rate 06/22/2015 None Full Exam - General 1994 Cardiovascular extremities Overall: no clubbing 06/22/2015 None Full Exam - General 1994 Cardiovascular auscultation of heart Overall: regular rate 06/22/2015 None Full Exam - General 1994 Cardiovascular auscultation of heart Overall: normal heart sounds 06/22/2015 None Full Exam - General 1994 Cardiovascular auscultation of heart Systolic murmur: blowing 06/22/2015 None Full Exam - General 1994 Cardiovascular auscultation of heart Systolic murmur grade: III/ 06/22/2015 None Full Exam - General 1994 Abdomen abdominal exam Overall: no tenderness 06/22/2015 None Full Exam - General 1994 Abdomen abdominal exam Overall: normal bowel sounds 06/22/2015 None Full Exam - General 1994 Abdomen abdominal exam Contour: protuberant 06/22/2015 None Full Exam - General 1994 Abdomen abdominal exam Skin: presence of a scar 06/22/2015 None Full Exam - General 1994 Abdomen hernia exam Abdominal hernia present: non-tender 06/22/2015 diastasis recti Full Exam - General 1994 Lymphatic neck nodes Overall: anterior cervical chain benign 06/22/2015 None Full Exam - General 1994 Lymphatic neck nodes Overall: posterior cervical chain benign 06/22/2015 None Full Exam - General 1994 Musculoskeletal spine, ribs and pelvis Posture: a normal exam 06/22/2015 None Full Exam - General 1994 Musculoskeletal head and neck Overall: head atraumatic 06/22/2015 None Full Exam - General 1994 Musculoskeletal head and neck Overall: cervical spine benign 06/22/2015 None Full Exam - General 1994 Integument inspection of skin Overall: few scattered moles, no gross abnormalities 06/22/2015 None Full Exam - General 1994 Neurologic deep tendon reflexes Overall: deep tendon reflexes intact 06/22/2015 None Full Exam - General 1994 Neurologic cranial nerves Overall: crainial nerves 2 - 12 grossly intact 06/22/2015 None Full Exam - General 1994 Psychiatric orientation/consciousness Overall: oriented to person, place and time 06/22/2015 None Full Exam - General 1994 Psychiatric mood and affect Overall: normal mood and affect 06/22/2015 None Full Exam - General 1994 Constitutional general appearance Development: well developed 07/31/2014 None Full Exam - General 1994 Constitutional general appearance Development: appears stated age 0507/31/2014 None Full Exam - General 1994 Constitutional general appearance Hygiene/Attention to Grooming: good hygiene 07/31/2014 None Full Exam - General 1994 Eyes conjunctiva/eyelids Overall: conjunctiva clear 07/31/2014 None Full Exam - General 1994 Eyes conjunctiva/eyelids Overall: cornea clear 07/31/2014 None Full Exam - General 1994 Eyes conjunctiva/eyelids Overall: eyelids normal 07/31/2014 None Full Exam - General 1994 Eyes pupils and irises Overall: pupils equal, round, reactive to light and accomodation 07/31/2014 None Full Exam - General 1994 Ears/Nose/Throat otoscopic exam Overall: external auditory canals clear 07/31/2014 None Full Exam - General 1994 Ears/Nose/Throat otoscopic exam Tympanic membrane: tympanosclerosis 07/31/2014 None Full Exam - General 1994 Ears/Nose/Throat lips/teeth/gingiva Overall: benign lips 07/31/2014 None Full Exam - General 1994 Ears/Nose/Throat lips/teeth/gingiva Overall: normal dentition 07/31/2014 None Full Exam - General 1994 Ears/Nose/Throat oral cavity/pharynx/larynx Overall: oral mucosa clear 07/31/2014 None Full Exam - General 1994 Ears/Nose/Throat oral cavity/pharynx/larynx Overall: oropharyngeal mucosa clear 07/31/2014 None Full Exam - General 1994 Ears/Nose/Throat oral cavity/pharynx/larynx Overall: hypopharynx benign 07/31/2014 None Full Exam - General 1994 Ears/Nose/Throat oral cavity/pharynx/larynx Overall: no masses 07/31/2014 None Full Exam - General 1994 Neck inspection of neck Size: thick 07/31/2014 None Full Exam - General 1994 Respiratory auscultation Overall: breath sounds clear bilaterally 07/31/2014 None Full Exam - General 1994 Respiratory respiratory effort/rhythm Overall: no retractions 07/31/2014 None Full Exam - General 1994 Respiratory respiratory effort/rhythm Overall: normal rate 07/31/2014 None Full Exam - General 1994 Cardiovascular extremities Overall: no clubbing 07/31/2014 None Full Exam - General 1994 Cardiovascular auscultation of heart Overall: regular rate 07/31/2014 None Full Exam - General 1994 Cardiovascular auscultation of heart Overall: normal heart sounds 07/31/2014 None Full Exam - General 1994 Cardiovascular auscultation of heart Systolic murmur: blowing 07/31/2014 None Full Exam - General 1994 Cardiovascular auscultation of heart Systolic murmur grade: III/ 07/31/2014 None Full Exam - General 1994 Abdomen abdominal exam Overall: no tenderness 07/31/2014 None Full Exam - General 1994 Abdomen abdominal exam Overall: normal bowel sounds 07/31/2014 None Full Exam - General 1994 Abdomen abdominal exam Contour: protuberant 07/31/2014 None Full Exam - General 1994 Abdomen abdominal exam Skin: presence of a scar 07/31/2014 None Full Exam - General 1994 Abdomen hernia exam Abdominal hernia present: non-tender 07/31/2014 diastasis recti Full Exam - General 1994 Lymphatic neck nodes Overall: anterior cervical chain benign 07/31/2014 None Full Exam - General 1994 Lymphatic neck nodes Overall: posterior cervical chain benign 07/31/2014 None Full Exam - General 1994 Musculoskeletal spine, ribs and pelvis Posture: a normal exam 07/31/2014 None Full Exam - General 1994 Musculoskeletal head and neck Overall: head atraumatic 07/31/2014 None Full Exam - General 1994 Musculoskeletal head and neck Overall: cervical spine benign 07/31/2014 None Full Exam - General 1994 Integument inspection of skin Overall: few scattered moles, no gross abnormalities 07/31/2014 None Full Exam - General 1994 Neurologic deep tendon reflexes Overall: deep tendon reflexes intact 07/31/2014 None Full Exam - General 1994 Neurologic cranial nerves Overall: crainial nerves 2 - 12 grossly intact 07/31/2014 None Full Exam - General 1994 Psychiatric orientation/consciousness Overall: oriented to person, place and time 07/31/2014 None Full Exam - General 1994 Psychiatric mood and affect Overall: normal mood and affect 07/31/2014 None Full Exam - General 1994 Constitutional general appearance Development: well developed 03/20/2014 None Full Exam - General 1994 Constitutional general appearance Development: appears stated age 0103/20/2014 None Full Exam - General 1994 Constitutional general appearance Hygiene/Attention to Grooming: good hygiene 03/20/2014 None Full Exam - General 1994 Eyes conjunctiva/eyelids Overall: conjunctiva clear 03/20/2014 None Full Exam - General 1994 Eyes conjunctiva/eyelids Overall: cornea clear 03/20/2014 None Full Exam - General 1994 Eyes conjunctiva/eyelids Overall: eyelids normal 03/20/2014 None Full Exam - General 1994 Eyes pupils and irises Overall: pupils equal, round, reactive to light and accomodation 03/20/2014 None Full Exam - General 1994 Ears/Nose/Throat otoscopic exam Overall: external auditory canals clear 03/20/2014 None Full Exam - General 1994 Ears/Nose/Throat otoscopic exam Tympanic membrane: retraction pocket 03/20/2014 scar from tympanostomy tube Full Exam - General 1994 Ears/Nose/Throat otoscopic exam Tympanic membrane: tympanosclerosis 03/20/2014 None Full Exam - General 1994 Ears/Nose/Throat lips/teeth/gingiva Overall: benign lips 03/20/2014 None Full Exam - General 1994 Ears/Nose/Throat lips/teeth/gingiva Overall: normal dentition 03/20/2014 None Full Exam - General 1994 Ears/Nose/Throat oral cavity/pharynx/larynx Overall: oral mucosa clear 03/20/2014 None Full Exam - General 1994 Ears/Nose/Throat oral cavity/pharynx/larynx Overall: oropharyngeal mucosa clear 03/20/2014 None Full Exam - General 1994 Ears/Nose/Throat oral cavity/pharynx/larynx Overall: hypopharynx benign 03/20/2014 None Full Exam - General 1994 Ears/Nose/Throat oral cavity/pharynx/larynx Overall: no masses 03/20/2014 None Full Exam - General 1994 Neck inspection of neck Size: thick 03/20/2014 None Full Exam - General 1994 Respiratory auscultation Overall: breath sounds clear bilaterally 03/20/2014 None Full Exam - General 1994 Respiratory respiratory effort/rhythm Overall: no retractions 03/20/2014 None Full Exam - General 1994 Respiratory respiratory effort/rhythm Overall: normal rate 03/20/2014 None Full Exam - General 1994 Cardiovascular extremities Overall: no clubbing 03/20/2014 None Full Exam - General 1994 Cardiovascular auscultation of heart Overall: regular rate 03/20/2014 None Full Exam - General 1994 Cardiovascular auscultation of heart Overall: normal heart sounds 03/20/2014 None Full Exam - General 1994 Cardiovascular auscultation of heart Systolic murmur: blowing 03/20/2014 None Full Exam - General 1994 Cardiovascular auscultation of heart Systolic murmur grade: III/ 03/20/2014 None Full Exam - General 1994 Abdomen abdominal exam Overall: no tenderness 03/20/2014 None Full Exam - General 1994 Abdomen abdominal exam Overall: normal bowel sounds 03/20/2014 None Full Exam - General 1994 Abdomen abdominal exam Contour: protuberant 03/20/2014 None Full Exam - General 1994 Abdomen abdominal exam Skin: presence of a scar 03/20/2014 None Full Exam - General 1994 Abdomen hernia exam Abdominal hernia present: non-tender 03/20/2014 diastasis recti Full Exam - General 1994 Lymphatic neck nodes Overall: anterior cervical chain benign 03/20/2014 None Full Exam - General 1994 Lymphatic neck nodes Overall: posterior cervical chain benign 03/20/2014 None Full Exam - General 1994 Musculoskeletal spine, ribs and pelvis Posture: a normal exam 03/20/2014 None Full Exam - General 1994 Musculoskeletal head and neck Overall: head atraumatic 03/20/2014 None Full Exam - General 1994 Musculoskeletal head and neck Overall: cervical spine benign 03/20/2014 None Full Exam - General 1994 Integument inspection of skin Overall: few scattered moles, no gross abnormalities 03/20/2014 None Full Exam - General 1994 Neurologic deep tendon reflexes Overall: deep tendon reflexes intact 03/20/2014 None Full Exam - General 1994 Neurologic cranial nerves Overall: crainial nerves 2 - 12 grossly intact 03/20/2014 None Full Exam - General 1994 Psychiatric orientation/consciousness Overall: oriented to person, place and time 03/20/2014 None Full Exam - General 1994 Psychiatric mood and affect Overall: normal mood and affect 03/20/2014 None Full Exam - General 1994 Constitutional general appearance Development: appears stated age 1203/01/2014 None Full Exam - General 1994 Constitutional general appearance Development: well developed 03/01/2014 None Full Exam - General 1994 Constitutional general appearance Hygiene/Attention to Grooming: good hygiene 03/01/2014 None Full Exam - General 1994 Eyes conjunctiva/eyelids Overall: conjunctiva clear 03/01/2014 None Full Exam - General 1994 Eyes conjunctiva/eyelids Overall: cornea clear 03/01/2014 None Full Exam - General 1994 Eyes conjunctiva/eyelids Overall: eyelids normal 03/01/2014 None Full Exam - General 1994 Eyes pupils and irises Overall: pupils equal, round, reactive to light and accomodation 03/01/2014 None Full Exam - General 1994 Ears/Nose/Throat otoscopic exam Overall: external auditory canals clear 03/01/2014 None Full Exam - General 1994 Ears/Nose/Throat lips/teeth/gingiva Overall: benign lips 03/01/2014 None Full Exam - General 1994 Ears/Nose/Throat lips/teeth/gingiva Overall: normal dentition 03/01/2014 None Full Exam - General 1994 Ears/Nose/Throat oral cavity/pharynx/larynx Overall: hypopharynx benign 03/01/2014 None Full Exam - General 1994 Ears/Nose/Throat oral cavity/pharynx/larynx Overall: no masses 03/01/2014 None Full Exam - General 1994 Ears/Nose/Throat oral cavity/pharynx/larynx Overall: oral mucosa clear 03/01/2014 None Full Exam - General 1994 Ears/Nose/Throat oral cavity/pharynx/larynx Overall: oropharyngeal mucosa clear 03/01/2014 None Full Exam - General 1994 Respiratory auscultation Overall: breath sounds clear bilaterally 03/01/2014 None Full Exam - General 1994 Respiratory respiratory effort/rhythm Overall: no retractions 03/01/2014 None Full Exam - General 1994 Respiratory respiratory effort/rhythm Overall: normal rate 03/01/2014 None Full Exam - General 1994 Cardiovascular extremities Overall: no clubbing 03/01/2014 None Full Exam - General 1994 Cardiovascular auscultation of heart Overall: normal heart sounds 03/01/2014 None Full Exam - General 1994 Cardiovascular auscultation of heart Overall: regular rate 03/01/2014 None Full Exam - General 1994 Abdomen abdominal exam Overall: no tenderness 03/01/2014 None Full Exam - General 1994 Abdomen abdominal exam Overall: normal bowel sounds 03/01/2014 None Full Exam - General 1994 Integument inspection of skin Overall: few scattered moles, no gross abnormalities 03/01/2014 None Full Exam - General 1994 Neurologic deep tendon reflexes Overall: deep tendon reflexes intact 03/01/2014 None Full Exam - General 1994 Neurologic cranial nerves Overall: crainial nerves 2 - 12 grossly intact 03/01/2014 None Full Exam - General 1994 Psychiatric orientation/consciousness Overall: oriented to person, place and time 03/01/2014 None Full Exam - General 1994 Psychiatric mood and affect Overall: normal mood and affect 03/01/2014 None Full Exam - General 1994 Cardiovascular auscultation of heart Murmur: new murmur 03/01/2014 None Full Exam - General 1994 Cardiovascular auscultation of heart Systolic murmur: blowing 03/01/2014 None Full Exam - General 1994 Cardiovascular auscultation of heart Systolic murmur grade: III/ 03/01/2014 None Full Exam - General 1994 Ears/Nose/Throat otoscopic exam Tympanic membrane: retraction pocket 03/01/2014 scar from tympanostomy tube Full Exam - General 1994 Ears/Nose/Throat otoscopic exam Tympanic membrane: tympanosclerosis 03/01/2014 None Full Exam - General 1994 Neck inspection of neck Size: thick 03/01/2014 None Full Exam - General 1994 Abdomen abdominal exam Skin: presence of a scar 03/01/2014 None Full Exam - General 1994 Abdomen abdominal exam Contour: protuberant 03/01/2014 None Full Exam - General 1994 Abdomen hernia exam Abdominal hernia present: non-tender 03/01/2014 diastasis recti Full Exam - General 1994 Lymphatic neck nodes Overall: anterior cervical chain benign 03/01/2014 None Full Exam - General 1994 Lymphatic neck nodes Overall: posterior cervical chain benign 03/01/2014 None Full Exam - General 1994 Musculoskeletal spine, ribs and pelvis Posture: a normal exam 03/01/2014 None Full Exam - General 1994 Musculoskeletal head and neck Overall: cervical spine benign 03/01/2014 None Full Exam - General 1994 Musculoskeletal head and neck Overall: head atraumatic 03/01/2014 None Procedures Procedure Codes Date TRIAMCINOLONE ACET I [place] NOS CPT-4: J3301 11/16/2018 TRIAMCINOLONE ACET I [place] NOS CPT-4: J3301 06/21/2018 THER/PROPH/DIAG INJ SC/IM CPT-4: 77953 05/14/2018 TRIAMCINOLONE ACET I [place] NOS CPT-4: J3301 05/14/2018 TRIAMCINOLONE ACET I [place] NOS CPT-4: J3301 03/11/2018 THER/PROPH/DIAG INJ SC/IM CPT-4: 19945 03/11/2018 PPPS, SUBSEQ VISIT CPT- 4: G0439 01/13/2018 TRIAMCINOLONE ACET I [place] NOS CPT-4: J3301 12/03/2017 THER/PROPH/DIAG INJ SC/IM CPT-4: 68847 12/03/2017 TRIAMCINOLONE ACET I [place] NOS CPT-4: J3301 06/24/2017 TRIAMCINOLONE ACET I [place] NOS CPT-4: J3301 03/17/2017 TRIAMCINOLONE ACET I [place] NOS CPT-4: J3301 11/18/2016 TRIAMCINOLONE ACET I [place] NOS CPT-4: J3301 03/24/2016 THER/PROPH/DIAG INJ SC/IM CPT-4: 96860 03/24/2016 TRIAMCINOLONE ACET I [place] NOS CPT-4: J3301 08/02/2015 OCCULT BLOOD FECES CPT- 4: 24356 08/03/2014 INITIAL PREVENTIVE EXAM CPT-4: G0402 07/31/2014 Vital Signs Date Vital 11/16/2018 Blood Pressure 1: 128/74 Code: 8480-6 BMI: 38.2 Code: 70512-7 Heart Rate 1: 58 bpm Height: 5'10" SpO2: 98% Temperature: 36.6 (C ) / 97.8 (F) Weight: 266 lbs 09/02/2018 Blood Pressure 1: 146/80 Code: 8480-6 BMI: 37.4 Code: 96211-3 Heart Rate 1: 58 bpm Height: 5'10" SpO2: 97% Weight: 261 lbs 06/21/2018 Blood Pressure 1: 130/80 Code: 8480-6 Heart Rate 1: 94 bpm Height: 5'10" SpO2: 95% Weight: 05/14/2018 Blood Pressure 1: 144/84 Code: 8480-6 Heart Rate 1: 70 bpm Height: SpO2: 95% Weight: 03/11/2018 Blood Pressure 1: 134/76 Code: 8480-6 BMI: 35.7 Code: 85781-6 Heart Rate 1: 60 bpm Height: 5'10" SpO2: 96% Weight: 249 lbs 02/10/2018 Blood Pressure 1: 140/72 Code: 8480-6 BMI: 33.7 Code: 62126-0 Heart Rate 1: 48 bpm Height: 5'10" SpO2: 95% Temperature: 36.6 (C ) / 97.8 (F) Weight: 235 lbs 01/13/2018 Blood Pressure 1: 118/66 Code: 8480-6 BMI: 33.3 Code: 08820-1 Heart Rate 1: 57 bpm Height: 5'10" SpO2: 98% Waist Measure (cm): 97 cm Weight: 232 lbs 12/23/2017 Blood Pressure 1: 120/62 Code: 8480-6 BMI: 33.7 Code: 22602-6 Heart Rate 1: 58 bpm Height: 5'10" SpO2: 96% Weight: 235 lbs 06/24/2017 Blood Pressure 1: 136/74 Code: 8480-6 BMI: 38.7 Code: 01027-2 Heart Rate 1: 75 bpm Height: 5'10" SpO2: 98% Weight: 270 lbs 03/17/2017 Blood Pressure 1: 138/78 Code: 8480-6 Heart Rate 1: 65 bpm SpO2: 97% Temperature: 36.6 (C ) / 97.8 (F) 12/24/2016 Blood Pressure 1: 134/78 Code: 8480-6 BMI: 37.2 Code: 09181-0 Heart Rate 1: 56 bpm Height: 5'10" SpO2: 98% Weight: 259 lbs 11/18/2016 Blood Pressure 1: 130/72 Code: 8480-6 BMI: 37.3 Code: 64816-8 Heart Rate 1: 70 bpm Height: 5'10" SpO2: 95% Weight: 260 lbs 06/24/2016 Blood Pressure 1: 134/80 Code: 8480-6 BMI: 38.3 Code: 07691-9 Heart Rate 1: 66 bpm Height: 5'10" SpO2: 98% Weight: 267 lbs 05/20/2016 Blood Pressure 1: 138/82 Code: 8480-6 BMI: 37.4 Code: 45762-9 Heart Rate 1: 65 bpm Height: 5'10" SpO2: 100% Weight: 261 lbs 05/09/2016 Blood Pressure 1: 154/78 Code: 8480-6 Heart Rate 1: 82 bpm Height: SpO2: 89% Temperature: 36.2 (C ) / 97.2 (F) Weight: 04/28/2016 Blood Pressure 1: 112/62 Code: 8480-6 BMI: 37.9 Code: 17387-6 Heart Rate 1: 73 bpm Height: 5'10" SpO2: 94% Temperature: 37.2 (C ) / 98.9 (F) Weight: 264 lbs 04/04/2016 Blood Pressure 1: 150/86 Code: 8480-6 Blood Pressure 1: 148/86 Code: 8480-6 Heart Rate 1: 71 bpm SpO2: 93% SpO2: 95% Temperature: 37.2 (C ) / 99.0 (F) 03/28/2016 Blood Pressure 1: 156/74 Code: 8480-6 BMI: 38.0 Code: 03037-7 Heart Rate 1: 84 bpm Height: 5'10" SpO2: 95% Weight: 265 lbs 02/13/2016 Blood Pressure 1: 118/62 Code: 8480-6 BMI: 39.2 Code: 97131-0 Heart Rate 1: 65 bpm Height: 5'10" SpO2: 96% Weight: 273 lbs 08/02/2015 Blood Pressure 1: 150/82 Code: 8480-6 BMI: 38.3 Code: 06995-7 Heart Rate 1: 75 bpm Height: 5'10" SpO2: 93% Weight: 267 lbs 06/22/2015 Blood Pressure 1: 138/80 Code: 8480-6 BMI: 38.7 Code: 77679-7 Heart Rate 1: 76 bpm Height: 5'10" SpO2: 96% Weight: 270 lbs 07/31/2014 Blood Pressure 1: 138/70 Code: 8480-6 BMI: 37.7 Code: 67625-2 Heart Rate 1: 70 bpm Height: 5'10" Respiratory Rate: 20 bpm Weight: 263 lbs 03/20/2014 Blood Pressure 1: 142/80 Code: 8480-6 BMI: 37.7 Code: 46589-8 Heart Rate 1: 64 bpm Height: 5'10" Weight: 263 lbs 03/01/2014 Blood Pressure 1: 150/90 Code: 8480-6 Blood Pressure 2: 140/80 Code: 8480-6 BMI: 37.3 Code: 83402-8 Heart Rate 1: 56 bpm Height: 5'10" Weight: 260 lbs Functional Status No Functional Status data History of Present Illness Symptom Name Status Resu lt Effective Date Notes Location in the throat 11/16/2018 None Quality constant 11/16/2018 None Quality hacking 11/16/2018 None Quality productive 11/16/2018 None Onset and Resolution s udden in onset 11/16/2018 None Onset of Symptom 10 da ys ago 11/16/2018 None Frequency of Episodes daily 11/16/2018 None Onset and Resolution s udden in onset 11/16/2018 None Onset of Symptom 10 da ys ago 11/16/2018 None Pertinent Findings cough 11/16/2018 None Pertinent Findings dec reased energy level 11/16/2018 None Pertinent Findings marcus rseness 11/16/2018 None Location on both sides 11/16/2018 None Quality constant 11/16/2018 None Quality pressure 11/16/2018 None _ infection 09/02/2018 -UTI Quality acute illness 09/02/2018 None Quality improving 09/02/2018 None Onset of Symptom 4 day s ago 09/02/2018 None Alleviating Factors me dication 09/02/2018 None Onset and Resolution s udden in onset 09/02/2018 None Pertinent Findings Den ies fever 09/02/2018 None Location in the throat 06/21/2018 None Quality productive 06/21/2018 None Onset and Resolution s udden in onset 06/21/2018 None Onset of Symptom 2-3 d ays ago 06/21/2018 None Pertinent Findings Den ies chest discomfort 06/21/2018 None Pertinent Findings Den ies dyspnea 06/21/2018 None Pertinent Findings Den ies fever 06/21/2018 None Limitation on Activities does not limit activities 06/21/2018 None Frequency of Episodes increasing 06/21/2018 None Length of Episodes _ d ays 06/21/2018 None Significant Medical Conditions pulmonary disease 06/21/2018 None Significant Medications inhaled steroids 06/21/2018 None Triggers known allergens 06/21/2018 None Location in the lung 05/14/2018 None Quality acute 05/14/2018 None Pertinent Findings Den ies fever 05/14/2018 None Location frontal sinuses 03/11/2018 None Quality fullness 03/11/2018 None Quality pressure 03/11/2018 None Onset and Resolution g radual in onset 03/11/2018 None Location in the throat 03/11/2018 None Quality constant 03/11/2018 None Quality hacking 03/11/2018 None Quality productive 03/11/2018 None Onset and Resolution g radual in onset 03/11/2018 None Onset of Symptom _ wee ks ago 03/11/2018 None sinus congestion Location frontal sinuses 02/10/2018 None sinus congestion Quality fullness 02/10/2018 None sinus congestion Quality pressure 02/10/2018 None sinus congestion Onset and Resolution gradual in onset 02/10/2018 None sinus congestion Onset of Symptom 2 weeks ago 02/10/2018 None cough Location in the th roat 02/10/2018 None cough Quality constant 02/10/2018 None cough Quality hacking 02/10/2018 None cough Quality productive 02/10/2018 None cough Onset and Resolution gradual in onset 02/10/2018 None cough Onset of Symptom _ weeks ago 02/10/2018 None Annual Medicare Wellness Exam Depres ira (last 6 months) almost never 01/13/2018 None Annual Medicare Wellness Exam Depres ira or Hopelessness almost never 01/13/2018 None Annual Medicare Wellness Exam Intera ction with Friends yes 01/13/2018 None Annual Medicare Wellness Exam Social & Emotional Support always 01/13/2018 None Annual Medicare Wellness Exam Descri be Your Health excellent 01/13/2018 Non e Annual Medicare Wellness Exam Motor Vehicle Safety always fastens seat belt: y 01/14/20 18 None Annual Medicare Wellness Exam Motor Vehicle Safety drives after drinking: n 01/13/2018 None Annual Medicare Wellness Exam Motor Vehicle Safety rides with someone who has been drinking: n 01/13/2018 None Annual Medicare Wellness Exam Alcohol Use does not drink any alcohol 01/13/2018 None Annual Medicare Wellness Exam Exerci se Habits exercises 3 days per week 01/13/2018 None Annual Medicare Wellness Exam Exerci se Habits exercises 30 minutes per day 01/13/2018 None Annual Medicare Wellness Exam Smokin g and Tobacco Use non smoker 01/13/2018 No ne Annual Medicare Wellness Exam Aspirin Use no 01/13/2018 None Annual Medicare Wellness Exam Blood Glucose (self reported) don't know 01/13/2018 No ne Annual Medicare Wellness Exam Blood Pressure (self reported) don't know 01/13/2018 No ne Annual Medicare Wellness Exam Choles terol (self reported) desireable (below 200) 01/13/2018 None Annual Medicare Wellness Exam Handli ng Stress usually malik effectively 01/13/2018 None Annual Medicare Wellness Exam Hemagl obin A-1C (self reported) don't know 01/13/2018 No ne Annual Medicare Wellness Exam Hours of Sleep 7 01/13/2018 None Annual Medicare Wellness Exam Intere sts & Pleasure some of the time 01/13/2018 None Annual Medicare Wellness Exam Life S atisfaction very satisfied 01/13/2018 None Annual Medicare Wellness Exam Nutrition servings of fried food / high fat foods per day: 0 01/13/2018 None Annual Medicare Wellness Exam Nutrition servings of high fiber / whole grain per day: 2 01/13/2018 None Annual Medicare Wellness Exam Nutrition servings of vegetables / fruit per day: 2 01/13/2018 None Annual Medicare Wellness Exam Stress almost never 01/13/2018 None Annual Medicare Wellness Exam Sun Exposure protects skin when outdoors: n 01/13/2018 None hypertension Quality main akanksha hypertension 12/23/2017 None hypertension Onset and Resolution ongoing 12/23/2017 None hypertension Onset of Symptom during adulthood 12/23/2017 None hypertension Blood Pressure Values not checking blood pressure at home 12/23/2017 None hypertension Alleviating Factors medication 12/23/2017 None hypertension Pertinent Findings Denies dizziness 12/23/2017 None hypertension Pertinent Findings Denies edema 12/23/2017 None hyperlipidemia Onset and Resolution gradual in onset 12/23/2017 None hyperlipidemia Onset of Symptom during adulthood 12/23/2017 None hyperlipidemia Significant Medications statin 12/23/2017 None hyperlipidemia Alleviating Factors medication 12/23/2017 None hyperlipidemia Exacerbating Factors diet 12/23/2017 None hypertension Quality main vale hypertension 06/24/2017 None hypertension Onset and Resolution ongoing 06/24/2017 None hypertension Onset of Symptom during adulthood 06/24/2017 None hypertension Blood Pressure Values not checking blood pressure at home 06/24/2017 None hypertension Alleviating Factors medication 06/24/2017 None hypertension Pertinent Findings Denies dizziness 06/24/2017 None hypertension Pertinent Findings Denies edema 06/24/2017 None hyperlipidemia Onset and Resolution gradual in onset 06/24/2017 None hyperlipidemia Onset of Symptom during adulthood 06/24/2017 None hyperlipidemia Significant Medications statin 06/24/2017 None hyperlipidemia Alleviating Factors medication 06/24/2017 None hyperlipidemia Exacerbating Factors diet 06/24/2017 None sinus congestion Location on both sides 06/24/2017 None sinus congestion Onset of Symptom 1-2 weeks ago 06/24/2017 None sinus congestion Quality acute 06/24/2017 None sinus congestion Quality intermittent 06/24/2017 None sinus congestion Onset and Resolution ongoing 06/24/2017 None sinus congestion Timing of Episodes in the evening 06/24/2017 None sinus congestion Triggers allergens 06/24/2017 None sinus congestion Pertinent Findings cough 06/24/2017 None sinus congestion Location maxillary sinuses 03/17/2017 None sinus congestion Quality acute 03/17/2017 None sinus congestion Onset and Resolution ongoing 03/17/2017 None sinus congestion Severity mild 03/17/2017 None sinus congestion Quality improving 03/17/2017 None sinus congestion Pertinent Findings Denies fever 03/17/2017 None sinus congestion Pertinent Findings cough 03/17/2017 None hypertension Onset and Resolution ongoing 12/24/2016 None hypertension Onset of Symptom during adulthood 12/24/2016 None hypertension Blood Pressure Values not checking blood pressure at home 12/24/2016 None hypertension Alleviating Factors medication 12/24/2016 None hypertension Pertinent Findings Denies dizziness 12/24/2016 None hypertension Pertinent Findings Denies dyspnea 12/24/2016 None hypertension Pertinent Findings Denies edema 12/24/2016 None hypertension Quality main vale hypertension 12/24/2016 None sinus congestion Location frontal sinuses 11/18/2016 None sinus congestion Quality fullness 11/18/2016 None sinus congestion Onset and Resolution sudden in onset 11/18/2016 None sinus congestion Onset of Symptom 3 weeks ago 11/18/2016 None sinus congestion Frequency of Episodes daily 11/18/2016 None sinus congestion Pertinent Findings cough 11/18/2016 None cough Location in the selvin ng 11/18/2016 None cough Quality hacking 11/18/2016 None cough Quality productive 11/18/2016 None cough Quality intermitte nt 11/18/2016 None hypertension Onset and Resolution ongoing 06/24/2016 None hypertension Onset of Symptom during adulthood 06/24/2016 None hypertension Blood Pressure Values not checking blood pressure at home 06/24/2016 None hypertension Alleviating Factors medication 06/24/2016 None hypertension Pertinent Findings Denies dizziness 06/24/2016 None hypertension Pertinent Findings Denies dyspnea 06/24/2016 None hypertension Pertinent Findings Denies edema 06/24/2016 None cough Quality intermitte nt 06/24/2016 None cough Quality dry 06/24/2016 None cough Pertinent Findings Denies sputum production 06/24/2016 None cough Onset and Resolution ongoing 06/24/2016 None Hospital Follow Up _ [facility] er: dyspnea, hypoxemia, pneumonia 05/20/2016 None Hospital Follow Up Quality acute 05/20/2016 None Hospital Follow Up Onset and Resolution resolved 05/20/2016 None cough Location in the roat 05/09/2016 None cough Quality constant 05/09/2016 None cough Quality hacking 05/09/2016 None cough Onset and Resolution sudden in onset 05/09/2016 None cough Onset of Symptom 3 days ago 05/09/2016 None chest congestion Quality acute 05/09/2016 None chest congestion Quality worsening 05/09/2016 None chest congestion Onset and Resolution sudden in onset 05/09/2016 None chest congestion Onset of Symptom 1.5 months ago 05/09/2016 None chest congestion Severity moderate 05/09/2016 None chest congestion Pertinent Findings cough 05/09/2016 None chest congestion Pertinent Findings decreased energy 05/09/2016 None chest congestion Pertinent Findings dyspnea 05/09/2016 None chest congestion Pertinent Findings Denies fever 05/09/2016 None chest congestion Pertinent Findings nasal congestion 05/09/2016 None chest congestion Pertinent Findings sputum production 05/09/2016 None cough Limitation on Activities moderately limits activities 05/09/2016 None cough Frequency of Episodes increasing 05/09/2016 None cough Significant Medical Conditions pulmonary disease 05/09/2016 None cough Triggers ill conta cts 05/09/2016 None cough Location in the roat 04/28/2016 None cough Quality constant 04/28/2016 None cough Quality hacking 04/28/2016 None cough Onset and Resolution sudden in onset 04/28/2016 None cough Onset of Symptom 3 days ago 04/28/2016 None sore throat Location on both sides 04/28/2016 None sore throat Quality cons tant 04/28/2016 None sore throat Quality scra tchy 04/28/2016 None sore throat Onset and Resolution sudden in onset 04/28/2016 None sore throat Onset of Symptom 3 days ago 04/28/2016 None cough Location in the selvin ng 04/04/2016 None cough Location in the th roat 04/04/2016 None cough Quality acute 04/04/2016 None cough Onset and Resolution ongoing 04/04/2016 None cough Onset of Symptom 2 weeks ago 04/04/2016 None cough Limitation on Activities does not limit activities 04/04/2016 None cough Frequency of Episodes decreasing 04/04/2016 None cough Significant Medical Conditions cardiac disease 04/04/2016 None cough Triggers no known associated factors 04/04/2016 None cough Quality productive 03/28/2016 None cough Onset of Symptom 1 weeks ago 03/28/2016 None cough Onset and Resolution ongoing 03/28/2016 None cough Limitation on Activities does not limit activities 03/28/2016 None cough Frequency of Episodes decreasing 03/28/2016 None cough Significant Medical Conditions pulmonary disease 03/28/2016 None cough Triggers no known associated factors 03/28/2016 None cough Pertinent Findings Denies dyspnea 03/28/2016 None cough Pertinent Findings Denies fever 03/28/2016 None sinus congestion Onset and Resolution sudden in onset 02/13/2016 None sinus congestion Onset of Symptom 4 days ago 02/13/2016 None sinus congestion Pertinent Findings cough 02/13/2016 None sinus congestion Pertinent Findings hoarseness 02/13/2016 None sinus congestion Location on both sides 02/13/2016 None sinus congestion Quality constant 02/13/2016 None sinus congestion Quality fullness 02/13/2016 None sinus congestion Quality pressure 02/13/2016 None chest congestion Quality constant 02/13/2016 None chest congestion Onset and Resolution sudden in onset 02/13/2016 3 chest congestion Onset of Symptom 3 days ago 02/13/2016 None chest congestion Frequency of Episodes daily 02/13/2016 None chest congestion Pertinent Findings cough 02/13/2016 None chest congestion Pertinent Findings nasal congestion 02/13/2016 None chest congestion Pertinent Findings sinus congestion 02/13/2016 None cough Location in the selvin ng 08/02/2015 None cough Quality productive 08/02/2015 None cough Onset and Resolution sudden in onset 08/02/2015 None cough Quality dry 08/02/2015 None cough Onset of Symptom 1 weeks ago 08/02/2015 None cough Frequency of Episodes daily 08/02/2015 None sinus congestion Location on both sides 08/02/2015 None sinus congestion Quality fullness 08/02/2015 None sinus congestion Onset and Resolution sudden in onset 08/02/2015 None sinus congestion Onset of Symptom 1 weeks ago 08/02/2015 None sinus congestion Frequency of Episodes daily 08/02/2015 None chest congestion Quality constant 08/02/2015 None chest congestion Onset and Resolution sudden in onset 08/02/2015 None chest congestion Onset of Symptom 1 weeks ago 08/02/2015 None hypertension Quality int ermittent 06/22/2015 None hypertension Onset and Resolution ongoing 06/22/2015 None hypertension Blood Pressure Values patient checking blood pressure at home - did not bring in readings 06/22/2015 None hypertension Pertinent Findings Denies anxiety 06/22/2015 None hypertension Pertinent Findings Denies confusion 06/22/2015 None hypertension Pertinent Findings Denies dizziness 06/22/2015 None hypertension Pertinent Findings Denies hirsutism 06/22/2015 None hypertension Severity no t consistently severe symptoms, the symptoms fluctuate from no symptoms to anxiety and headaches 06/22/2015 None hypertension Frequency of Episodes unchanged 06/22/2015 None hypertension Significant Family History heart disease 06/22/2015 None hypertension Significant Medical Condition s cardiac disease 06/22/2015 None hypertension Triggers no known associated factors 06/22/2015 None hypertension Alleviating Factors medication 06/22/2015 None hypertension Quality chr onic 03/20/2014 None hypertension Onset and Resolution ongoing 03/20/2014 None hypertension Onset of Symptom during adulthood 03/20/2014 None hypertension Pertinent Findings Denies dizziness 03/20/2014 None hypertension Pertinent Findings Denies dyspnea 03/20/2014 None hypertension Pertinent Findings Denies edema 03/20/2014 None diabetes mellitus Onset of Symptom onset as an adult 03/20/2014 None diabetes mellitus Quality non-insulin dependent 03/20/2014 None diabetes mellitus Pertinent Findings Denies dizziness 03/20/2014 None diabetes mellitus Pertinent Findings Denies dyspnea 03/20/2014 None hyperlipidemia Onset and Resolution ongoing 03/20/2014 None hyperlipidemia Onset of Symptom during adulthood 03/20/2014 None hyperlipidemia Severity moderate 03/20/2014 None hyperlipidemia Alleviating Factors medication 03/20/2014 None hyperlipidemia Pertinent Findings Denies edema 03/20/2014 None hypertension Blood Pressure Values not checking blood pressure at home 03/20/2014 None hypertension Severity no t consistently severe symptoms, the symptoms fluctuate from no symptoms to anxiety and headaches 03/20/2014 None hypertension Frequency of Episodes unchanged 03/20/2014 None hypertension Significant Medical Condition s cardiac disease 03/20/2014 None hypertension Alleviating Factors medication 03/20/2014 None hypertension Triggers no known associated factors 03/20/2014 None hypertension Onset and Resolution ongoing 03/01/2014 cut Lisinopril 10mg dose in half (5mg) due to low bps. He was extremely tired and his bp was 90s/50s. hypertension Pertinent Findings Denies dizziness 03/01/2014 None hypertension Pertinent Findings Denies dyspnea 03/01/2014 None hypertension Pertinent Findings Denies edema 03/01/2014 None diabetes mellitus Test results Pt not checking blood glucose readings at home 03/01/2014 Stopped taking Metformin and Actos three weeks ago. diabetes mellitus Pertinent Findings Denies dizziness 03/01/2014 None diabetes mellitus Pertinent Findings Denies dyspnea 03/01/2014 None hyperlipidemia Onset and Resolution ongoing 03/01/2014 taking Pravastatin hyperlipidemia Pertinent Findings Denies edema 03/01/2014 None hypertension Onset of Symptom during adulthood 03/01/2014 None hypertension Quality chr onic 03/01/2014 None hyperlipidemia Severity moderate 03/01/2014 None hyperlipidemia Alleviating Factors medication 03/01/2014 None diabetes mellitus Onset of Symptom onset as an adult 03/01/2014 None diabetes mellitus Quality non-insulin dependent 03/01/2014 None hyperlipidemia Onset of Symptom during adulthood 03/01/2014 None Advance Directives No Advance Directive data Encounters Encounter Performer Loca tion Codes Date ([id number]) 69973 EST. P ATIENT, LEVEL III Diagnosis: Cough[ICD10: R05] Diagnosis: Acute bronchitis, unspecified[ICD10: J20.9] [facility] CPT-4: 61191 11/16/2018 ([id number]) 41727 EST. P ATIENT, LEVEL III Diagnosis: Urinary tract infection, site not specified[ICD10: N39.0] [facility] CPT-4: 12561 09/02/2018 ([id number]) 47755 EST. P ATIENT, LEVEL III Diagnosis: Essential (primary) hypertension[ICD10: I10] Diagnosis: Cough[ICD10: R05] Diagnosis: Cellulitis of right finger[ICD10: L03.011] Diagnosis: Other allergic rhinitis[ICD10: J30.89] Susu Camacho MD, [facility] CPT-4: 19508 06/21/2018 [id number] EST. PATIENT, LEVEL III Diagnosis: Acute laryngopharyngitis[ICD10: J06.0] Diagnosis: Other allergic rhinitis[ICD10: J30.89] Diagnosis: Cough[ICD10: R05] Lulu Camacho MD, [facility] CPT-4: 72393 05/14/2018 06163 EST. PATIENT, LEVEL IV Diagnosis: Other acute sinusitis[ICD10: J01.80] Diagnosis: Other allergic rhinitis[ICD10: J30.89] Diagnosis: Cough[ICD10: R05] Lulu Camacho MD, [facility] CPT-4: 95272 03/11/2018 56620 EST. PATIENT, LEVEL IV Diagnosis: Other acute sinusitis[ICD10: J01.80] Diagnosis: Other allergic rhinitis[ICD10: J30.89] Lulu Camacho MD, [facility] CPT-4: 72324 02/10/2018 ([id number]) 14587 EST. P ATIENT, LEVEL IV Diagnosis: Essential (primary) hypertension[ICD10: I10] Diagnosis: Mixed hyperlipidemia[ICD10: E78.2] Diagnosis: Nonrheumatic aortic (valve) stenosis[ICD10: I35.0] Trina Camacho MD, [facility] CPT-4: 51935 12/23/2017 ([id number]) PER PM REEVA L EST PAT 65+ YR Diagnosis: Encounter for general adult medical examination with abnormal findings[ICD10: Z00.01] Trina Camacho MD, [facility] CPT-4: 10762 06/24/2017 ([id number]) Patient adm itted to the hospital from clinic (NO CHARGE) Diagnosis: [ICD9: ] Diagnosis: Essential (primary) hypertension[ICD10: I10] Diagnosis: Other allergic rhinitis[ICD10: J30.89] Diagnosis: Cough[ICD10: R05] Diagnosis: Mixed hyperlipidemia[ICD10: E78.2] Trina Camacho MD, [facility] CPT- 4: 26230T 06/24/2017 43392 EST. PATIENT, LEVEL IV Diagnosis: Other acute sinusitis[ICD10: J01.80] Diagnosis: Other allergic rhinitis[ICD10: J30.89] Lulu Camacho MD, [facility] CPT-4: 53627 03/17/2017 ([id number]) 93059 EST. P ATIENT, LEVEL IV Diagnosis: Essential (primary) hypertension[ICD10: I10] Diagnosis: Mixed hyperlipidemia[ICD10: E78.2] Trina Camacho MD, [facility] CPT- 4: 47056 12/24/2016 39644 EST. PATIENT, LEVEL IV Diagnosis: Acute bronchitis due to other specified organisms[ICD10: J20.8] Lulu Camacho MD, [facility] CPT-4: 72752 11/18/2016 ([id number]) 63247 EST. P ATIENT, LEVEL III Diagnosis: Essential (primary) hypertension[ICD10: I10] Trina Camacho MD, [facility] CPT-4: 78672 06/24/2016 ([id number]) 72831 EST. P ATIENT, LEVEL III Diagnosis: Essential (primary) hypertension[ICD10: I10] Diagnosis: Cough[ICD10: R05] Diagnosis: Candidal stomatitis[ICD10: B37.0] Trina Camacho MD, [facility] CPT-4: 95702 05/20/2016 ([id number]) Patient adm itted to the hospital from clinic (NO CHARGE) Diagnosis: Pneumonia, unspecified organism[ICD10: J18.9] Diagnosis: Cough[ICD10: R05] Trina Camacho MD, [facility] CPT-4: 11313B 05/09/2016 51373 EST. PATIENT, LEVEL III Diagnosis: Acute laryngopharyngitis[ICD10: J06.0] Diagnosis: Cough[ICD10: R05] Lulu Camacho MD, [facility] CPT-4: 81320 04/28/2016 ([id number]) 02807 EST. P ATIENT, LEVEL III Diagnosis: Cough[ICD10: R05] Diagnosis: Essential (primary) hypertension[ICD10: I10] Susu Camacho MD, [facility] CPT-4: 51031 04/04/2016 ([id number]) 48893 EST. P ATIENT, LEVEL III Diagnosis: Cough[ICD10: R05] Diagnosis: Pneumonia, unspecified organism[ICD10: J18.9] Susu Camacho MD, [facility] CPT-4: 57031 03/28/2016 12331 EST. PATIENT, LEVEL IV Diagnosis: Other allergic rhinitis[ICD10: J30.89] Diagnosis: Other acute sinusitis[ICD10: J01.80] Lulu Camacho MD, [facility] CPT- 4: 02296 02/13/2016 [id number] EST. PATIENT, LEVEL IV Diagnosis: Acute bronchitis due to other specified organisms[ICD10: J20.8] Diagnosis: Other acute sinusitis[ICD10: J01.80] Diagnosis: Other allergic rhinitis[ICD10: J30.89] Lulu Camacho MD, [facility] CPT-4: 44495 08/02/2015 ([id number]) 39110 EST. P ATIENT, LEVEL IV Diagnosis: Essential (primary) hypertension[ICD10: I10] Diagnosis: Mixed hyperlipidemia[ICD10: E78.2] Diagnosis: Impaired fasting glucose[ICD10: R73.01] Susu Camacho MD, [facility] CPT-4: 30904 06/22/2015 ([id number]) 03906 EST. P ATIENT, LEVEL IV Diagnosis: ESSENTIAL HYPERTENSION[ICD9: 401.9] Diagnosis: Aortic stenosis[ICD9: 424.1] Diagnosis: Hyperlipidemia[ICD9: 272.4] Trina Camacho MD, [facility] CPT-4: 66031 03/20/2014 ([id number]) OFFICE VISI , [facility] - LEVEL 4 Diagnosis: ESSENTIAL HYPERTENSION[ICD9: 401.9] Diagnosis: DIABETES TYPE II[ICD9: 250.00] Diagnosis: Heart murmur[ICD9: 785.2] Diagnosis: Snoring[ICD9: 786.09] Diagnosis: Sleep-disordered breathing[ICD9: 780.59] Trina Camacho MD, [facility] CPT-4: 60771 03/01/2014 Plan of Care Planned Activity Notes C odes Status Date Visit Plan: Bronchitis - acute case of bronchitis identified. Pt has been given antibiotics, breathing treatments as appropriate, and pt has been instructed to call if symptoms are not improved, or if symptoms acutely worsen. 11/16/2018 Appointment: Susu Mills WPtel: [phone] (30 min) Complex 11/16/2018 Patient Education: Patient Medication Summary Completed 11/16/2018 Visit Plan: UTI-ER follow up -sympt oms have improved -culture positive for E.coli -continue treatment with cefdinir -finish all of abx - increase water intake -decrease tea intake -call if symptoms return or any other concerns. Patient verbalized understanding of plan. 09/02/2018 Appointment: Susu Mills WPtel: [phone] (15 min) Moderate 09/02/2018 Patient Education: Patient Medication Summary Completed 09/02/2018 Appointment: Trina Camacho WPtel: [facility] [address] (15 min) Moderate 06/23/2018 Visit Plan: Hypertension - well con trolled - continue with current medications, continue with no added salt diet. Pt has been encouraged to exercise daily. The pt has been advised to call the office if there are any acute concerns about change in blood pressure readings at home. Allergies - cough-kenalog injection today in the office - recommended pt to use allergy medication as prescribed. Pt has been counseled as to the appropriate use of the medication. Pt to call if allergy symptoms are not controlled with the medication. If using nasal spray, instructions as follows: Nasal spray- use twice daily, one spray per nostril twice daily, after 30 minutes, rinse out nose with saline spray.. Use opposite hand per nostril to spray in the nasal steroid allergy spray. Cellulitis -right index finger- rx for abx provided and instructed on use-recommend tetanus shot -call if symptoms do not resolve or if any worse 06/21/2018 Appointment: Susu Mills WPtel: [phone] (30 min) Complex 06/21/2018 Patient Education: Patient Medication Summary Completed 06/21/2018 Patient Education: Hypertension Completed 06/21/2018 Visit Plan: URI - Pt advised to inc rease fluids, vitamin C. Discussed natural and expected course of this diagnosis and need to alert me if symptoms do not follow expected course, or if any worse. RX sent to patient's pharmacy. Allergies - chronic - recommended pt to use allergy medication as prescribed. Pt has been counseled as to the appropriate use of the medication. Pt to call if allergy symptoms are not controlled with the medication. If using nasal spray, instructions as follows: Nasal spray- use twice daily, one spray per nostril twice daily, after 30 minutes, rinse out nose with saline spray.. Use opposite hand per nostril to spray in the nasal steroid allergy spray. 05/14/2018 Appointment: Lulu Mann WPtel: [facility] (15 min) Moderate 05/14/2018 Patient Education: Patient Medication Summary Completed 05/14/2018 Visit Plan: Sinusitis - Pt has acut e infection - pain in face, maxillary region, Pt informed to use decongestant, RX given to patient, sinus rinses also recommended. Call if symptoms do not show improvement. Allerg ies - chronic - recommended pt to use allergy medication as prescribed. Pt has been counseled as to the appropriate use of the medication. Pt to call if allergy symptoms are not controlled with the medication. If using nasal spray, instructions as follows: Nasal spray- use twice daily, one spray per nostril twice daily, after 30 minutes, rinse out nose with saline spray.. Use opposite hand per nostril to spray in the nasal steroid allergy spray. 03/11/2018 Appointment: Lulu Mann WPtel: [phone] [facility] [place] (15 min) Moderate 03/11/2018 Patient Education: Patient Medication Summary Completed 03/11/2018 Visit Plan: Sinusitis - Pt has acut e infection - pain in face, maxillary region, Pt informed to use decongestant, RX given to patient, sinus rinses also recommended. Call if symptoms do not show improvement. Allerg ies - chronic - recommended pt to use allergy medication as prescribed. Pt has been counseled as to the appropriate use of the medication. Pt to call if allergy symptoms are not controlled with the medication. If using nasal spray, instructions as follows: Nasal spray- use twice daily, one spray per nostril twice daily, after 30 minutes, rinse out nose with saline spray.. Use opposite hand per nostril to spray in the nasal steroid allergy spray. 02/10/2018 Appointment: Lulu Mann WPtel: [address] [place], [place] [id number] (15 min) Moderate 02/10/2018 Patient Education: Patient Medication Summary Completed 02/10/2018 Visit Plan: Medicare Exam - today w e discussed the patients past history, immunizations, preventative exams/evaluations - colonoscopy, fecal occult blood testing, routine labs for renal function, glucose, cholesterol, osteoporosis evaluations, cardiovascular testing and cancer screenings. We have also discussed mental health and the signs/symptoms of depression. The patient was advised of home safety evaluations and the need to make sure that as the aging process continues, we need to be aware of different ways to make the home a safer place to reside. The patient has also been counseled that exercise is necessary - and of utmost importance as we age to help decrease fall risk and to maintain independece in the home. Today we discussed the need for the patient to create paperwork for Advanced directives as well as for the patient to provide this office with a copy of her DOPA paperwork for health care surrogate. 01/13/2018 Patient Education: Patient Medication Summary Completed 01/13/2018 Visit Plan: Hypertension - well con trolled - continue with current medications, continue with no added salt diet. Pt has been encouraged to exercise daily. The pt has been advised to call the office if there are any acute concerns about change in blood pressure readings at home. Hyperlipidemia - pt has been counseled about appropriate diet, exercise, and need for low fat food choices. I have discussed the need for the patient to take medications as prescribed. If the patient has negative side effects from the medication, they are to CALL the office and not abruptly discontinue the medication without discussion with a practitioner in the office. We will check labs in 3-6 months for follow up on the patient's chronic medical problem and to assure normal liver response to medications. Obesity - pt has lost weight - continue with dietary changes and increased activity 12/23/2017 Appointment: Trina Camacho WPtel: [phone] [facility] [place] (15 min) Moderate 12/23/2017 Patient Education: Patient Medication Summary Completed 12/23/2017 Appointment: Injection 12/03/2017 Patient Education: Patient Medication Summary Completed 12/03/2017 Visit Plan: Well Adult - pt was cou nseled about diet, exercise, and encouraged to follow a heart healthy diet and increase activity level. The patient was instructed to RTC yearly for well adult exams and PRN for acute illnesses. The pt was also instructed to have yearly labs for check of cholesterol, thyroid, chem panel, CBC, and renal functioning. Hypertension - well controlled - continue with current medications, continue with no added salt diet. Pt has been encouraged to exercise daily. The pt has been advised to call the office if there are any acute concerns about change in blood pressure readings at home. Alleriges - kenalog shot today. Dyspnea - dulera inhaler two inhales bid. 06/24/2017 Visit Plan: Well Adult - pt was cou nseled about diet, exercise, and encouraged to follow a heart healthy diet and increase activity level. The patient was instructed to RTC yearly for well adult exams and PRN for acute illnesses. The pt was also instructed to have yearly labs for check of cholesterol, thyroid, chem panel, CBC, and renal functioning. Hypertension - well controlled - continue with current medications, continue with no added salt diet. Pt has been encouraged to exercise daily. The pt has been advised to call the office if there are any acute concerns about change in blood pressure readings at home. Alleriges - kenalog shot today. Dyspnea - dulera inhaler two inhales bid. 06/24/2017 Visit Plan: Well Adult - pt was cou nseled about diet, exercise, and encouraged to follow a heart healthy diet and increase activity level. The patient was instructed to RTC yearly for well adult exams and PRN for acute illnesses. The pt was also instructed to have yearly labs for check of cholesterol, thyroid, chem panel, CBC, and renal functioning. Hypertension - well controlled - continue with current medications, continue with no added salt diet. Pt has been encouraged to exercise daily. The pt has been advised to call the office if there are any acute concerns about change in blood pressure readings at home. Alleriges - kenalog shot today. Dyspnea - dulera inhaler two inhales bid. 06/24/2017 Appointment: Trina Camacho WPtel: [phone] [phone] (15 min) Moderate 06/24/2017 Patient Education: Patient Medication Summary Completed 06/24/2017 Visit Plan: Sinusitis - Pt has acut e infection - pain in face, maxillary region, Pt informed to use decongestant, RX given to patient, sinus rinses also recommended. Call if symptoms do not show improvement. Allerg ies - chronic - recommended pt to use allergy medication as prescribed. Pt has been counseled as to the appropriate use of the medication. Pt to call if allergy symptoms are not controlled with the medication. If using nasal spray, instructions as follows: Nasal spray- use twice daily, one spray per nostril twice daily, after 30 minutes, rinse out nose with saline spray.. Use opposite hand per nostril to spray in the nasal steroid allergy spray. 03/17/2017 Visit Plan: Sinusitis - Pt has acut e infection - pain in face, maxillary region, Pt informed to use decongestant, RX given to patient, sinus rinses also recommended. Call if symptoms do not show improvement. Allerg ies - chronic - recommended pt to use allergy medication as prescribed. Pt has been counseled as to the appropriate use of the medication. Pt to call if allergy symptoms are not controlled with the medication. If using nasal spray, instructions as follows: Nasal spray- use twice daily, one spray per nostril twice daily, after 30 minutes, rinse out nose with saline spray.. Use opposite hand per nostril to spray in the nasal steroid allergy spray. 03/17/2017 Appointment: Lulu Mann WPtel: [phone] [phone] (15 min) Moderate 03/17/2017 Patient Education: Patient Medication Summary Completed 03/17/2017 Visit Plan: Hypertension - well con trolled - continue with current medications, continue with no added salt diet. Pt has been encouraged to exercise daily. The pt has been advised to call the office if there are any acute concerns about change in blood pressure readings at home. Hyperlipidemia - pt has been counseled about appropriate diet, exercise, and need for low fat food choices. I have discussed the need for the patient to take medications as prescribed. If the patient has negative side effects from the medication, they are to CALL the office and not abruptly discontinue the medication without discussion with a practitioner in the office. We will check labs in 3-6 months for follow up on the patient's chronic medical problem and to assure normal liver response to medications. 12/24/2016 Appointment: Trina Camacho WPtel: [phone] [phone] (15 min) Moderate 12/24/2016 Patient Education: Patient Medication Summary Completed 12/24/2016 Patient Education: Obesity Completed 12/24/2016 Appointment: Nurse Visit 11/20/2016 Visit Plan: Bronchitis - acute case of bronchitis identified. Pt has been given antibiotics, steroids as appropriate, and pt has been instructed to call if symptoms are not improved, or if symptoms acutely worsen. 11/18/2016 Visit Plan: Bronchitis - acute case of bronchitis identified. Pt has been given antibiotics, steroids as appropriate, and pt has been instructed to call if symptoms are not improved, or if symptoms acutely worsen. 11/18/2016 Appointment: Lulu Mann WPtel: [phone] [phone] (30 min) Complex 11/18/2016 Patient Education: Patient Medication Summary Completed 11/18/2016 Visit Plan: Hypertension - well con trolled - continue with current medications, continue with no added salt diet. Pt has been encouraged to exercise daily. The pt has been advised to call the office if there are any acute concerns about change in blood pressure readings at home. 06/24/2016 Appointment: Trina Camacho WPtel: [phone] [phone] (15 min) Moderate 06/24/2016 Patient Education: Patient Medication Summary Completed 06/24/2016 Patient Education: Obesity Completed 06/24/2016 Visit Plan: Hypertension - well con trolled - continue with current medications, continue with no added salt diet. Pt has been encouraged to exercise daily. The pt has been advised to call the office if there are any acute concerns about change in blood pressure readings at home. Cough from pneumonia - improving - antibiotics finished, pt to continue with breathing treatments, wean down dose. Thrush - rx for nystatin swish and swallow 05/20/2016 Appointment: Trina Camacho WPtel: [address] [place], [place] [phone] (15 min) Moderate 05/20/2016 Patient Education: Patient Medication Summary Completed 05/20/2016 Patient Education: Obesity Completed 05/20/2016 Patient Education: Hypertension Completed 05/20/2016 Visit Plan: PNEUMONIA - PT IS CLINI WESLY SYMPTOMATIC FOR PNEUMONIA - A CHEST XRAY, SPUTUM C AND S, BLOOD CULTURES, AND LABS HAVE BEEN ORDERED IN ORDER TO FURTHER WORK-UP THE ACUTE ILLNESS. 05/09/2016 Appointment: Susu Mills WPtel: [address] [place], [place] [phone] (15 min) Moderate 05/09/2016 Patient Education: Patient Medication Summary Completed 05/09/2016 Visit Plan: URI - Pt advised to inc rease fluids, vitamin C. Discussed natural and expected course of this diagnosis and need to alert me if symptoms do not follow expected course, or if any worse. RX sent to patient's pharmacy. 04/28/2016 Appointment: Lulu Mann WPtel: [address] [place], [place] [id number] (15 min) Moderate 04/28/2016 Patient Education: Patient Medication Summary Completed 04/28/2016 Visit Plan: HTN-no well controlled- monitor over the weekend and call with readings-call for chest pain, shortness of breath, etc. Patient verbalized understanding of plan. Cough-recent pneumonia-history of tobacco use- symptoms improved-RX for a short course of prednisone sent to patient's pharmacy and instructed on use. Call Thursday with update. Patient verbalized understanding. 04/04/2016 Appointment: Susu Mills WPtel: [phone] [place] (10 min) Simple 04/04/2016 Patient Education: Patient Medication Summary Completed 04/04/2016 Patient Education: Hypertension Completed 04/04/2016 Visit Plan: Pneumonia-cough- improv ing-finish abx and call if symptoms do not completely resolved-patient verbalized understanding of plan. 03/28/2016 Appointment: Susu Millstel: [address] [place], [place] [phone] (30 min) Complex 03/28/2016 Patient Education: Patient Medication Summary Completed 03/28/2016 Patient Education: Obesity Completed 03/28/2016 Visit Plan: Cough-kenalog injection today-start abx as directed-f/u , sooner if needed 03/24/2016 Appointment: Susu Mills WPtel: [address] [place] [phone] (10 min) Simple 03/24/2016 Patient Education: Patient Medication Summary Completed 03/24/2016 Visit Plan: Allergies - chronic - r ecommended pt to use allergy medication as prescribed. Pt has been counseled as to the appropriate use of the medication. Pt to call if allergy symptoms are not controlled with th e medication. If using nasal spray, instructions as follows: Nasal spray- use twice daily, one spray per nostril twice daily, after 30 minutes, rinse out nose with saline spray.. Use opposite hand per nostril to spray in the nasal steroid allergy spray. Sinusitis - Pt has acute infection - pain in face, maxillary region, Pt informed to use decongestant, RX given to patient, sinus rinses also recommended. Call if symptoms do not show improvement. 02/13/2016 Appointment: Susu Mills WPtel: [address] [place], [place] [phone] (15 min) Moderate 02/13/2016 Patient Education: Patient Medication Summary Completed 02/13/2016 Patient Education: Obesity Completed 02/13/2016 Visit Plan: Bronchitis - acute case of bronchitis identified. Pt has been given antibiotics, breathing treatments as appropriate, and pt has been instructed to call if symptoms are not improved, or if symptoms acutely worsen. URI - Pt advised to increase fluids, vitamin C. Discussed natural and expected course of this diagnosis and need to alert me if symptoms do not follow expected course, or if any worse. RX sent to patient's pharmacy. Sinusitis - Pt has acute infection - pain in face, maxillary region, Pt informed to use decongestant, RX given to patient, sinus rinses also recommended. Call if symptoms do not show improvement. Allergies - chronic - recommended pt to use allergy medication as prescribed. Pt has been counseled as to the appropriate use of the medication. Pt to call if allergy symptoms are not controlled with the medication. If using nasal spray, instructions as follows: Nasal spray- use twice daily, one spray per nostril twice daily, after 30 minutes, rinse out nose with saline spray.. Use opposite hand per nostril to spray in the nasal steroid allergy spray. 08/02/2015 Appointment: Lulu Mann WPtel: [phone] (15 min) Moderate 08/02/2015 Patient Education: Patient Medication Summary Completed 08/02/2015 Patient Education: Obesity Completed 08/02/2015 Visit Plan: Hypertension - well con trolled - continue with current medications, continue with no added salt diet. Pt has been encouraged to exercise daily. The pt has been advised to call the office if there are any acute concerns about change in blood pressure readings at home. Hyperlipidemia- managed by Dr Avilez-patient had labs this morning-will get a copy Elevated fasting glucose-check Hgb A1C 06/22/2015 Appointment: (30 min) Complex 06/22/2015 Patient Education: Patient Medication Summary Completed 06/22/2015 Patient Education: Obesity Completed 06/22/2015 Patient Education: Hypertension Completed 06/22/2015 Visit Plan: Occult blood negative x 3. 08/03/2014 Visit Plan: Occult blood negative x 3. 08/03/2014 Visit Plan: Occult blood negative x 3. 08/03/2014 Appointment: Lab Draw 08/03/2014 Patient Education: Patient Medication Summary Completed 08/03/2014 Visit Plan: Welcome to Medicare Exa m - today we discussed the patients past history, immunizations, preventative exams/evaluations - colonoscopy (pt is due for and will decide on surgeon for referral,) fecal occ ult blood testing, routine labs for renal function, glucose, cholesterol, osteoporosis evaluations, cardiovascular testing and cancer screenings. We have also discussed mental health and the signs/symptoms of depression. The patient was advised of home safety evaluations and the need to make sure that as the aging process continues, we need to be aware of different ways to make the home a safer place to reside. The patient has also been counseled that exercise is necessary - and of utmost importance as we age to help decrease fall risk and to maintain independece in the home. 07/31/2014 Patient Education: Patient Medication Summary Completed 07/31/2014 Patient Education: [facility] - [facility] - Lisinopril - 18+ - Dynamic Portal ID Completed 07/31/2014 Visit Plan: KJI-fhlavufz-nhyve slig htly elevated-patient tolerated lisinopril 5mg BID well, did not tolerate 10mg daily in the past. Recommend he monitor blood pressure and pulse at home and bring in readings for review. Aortic Stenosis-recommend stress test-refer to Dr Avilez for evaluation Hyperlipidemia-continue statin medication-increase exercise and weight loss-low fat diet. Repeat labs in 3-6 months-Patient verbalized understanding of plan. 03/20/2014 Visit Plan: DWN-baezzdux-bfwno slig htly elevated-patient tolerated lisinopril 5mg BID well, did not tolerate 10mg daily in the past. Recommend he monitor blood pressure and pulse at home and bring in readings for review. Aortic Stenosis-recommend stress test-refer to Dr Avilez for evaluation Hyperlipidemia-continue statin medication-increase exercise and weight loss-low fat diet. Repeat labs in 3-6 months-Patient verbalized understanding of plan. Daytime szfvhgdhqhs-sacsjwd-rsokqhx-refer for sleep study 03/20/2014 Appointment: Follow up 03/20/2014 Patient Education: Patient Medication Summary Completed 03/20/2014 Care Plan: Referral Order SNOMED-CT : [id number] Ordered 03/20/2014 Visit Plan: Hypertension - uncontro lled - the patient's medications have been modified as documented in the visit note. The patient has been counseled to cut back on salt in diet for a no added salt diet, low fat d iet, start an exercise program with low weight bearing exercises and higher aerobic activity for heart health. The patient is to check blood pressure readings as an outpatient and either fax, call, or email the readings to the office next week for practitioner to review. The pt is to call for acute concerns. Increase lisinopril 5mg twice daily Diabetes - recommended that we look at labs, and may consider starting on victoza shots. Pt to keep off of metformin and stay on actos. Pt to bring in blood glucose readings. Heart Murmur - previously undiagnosed - recommended pt to have ECHO, pt also needs to have a stress test - appt with Dr. Avilez scheduled. Snoring/Sleep Disordered Breathing - discussed need for sleep study - pt to have sleep study scheduled GELA. Pt to sign release of information so that we can get his labs from his previous physician. 03/01/2014 Appointment: JaniceTrina [facility]Ptel[phone] [place] New Patient 03/01/2014 Patient Education: Patient Medication Summary Completed 03/01/2014 Patient Education: Hypertension Completed 03/01/2014 Referral: Dr Avilez Referral Initiated Instructions Comment SYMBICORT TWICE LUIS Y KENALOG TODAY IN THE OFFICE DOXYCYCLINE 100MG TWICE DAILY . Bronchitis - acute case of bronchitis identified. Pt has been given antibiotics, breathing treatments as appropriate, and pt has been instructed to call if symptoms are not improved, or if symptoms acutely worsen. . Sinusitis - Pt has acute infection - pain in face, maxillary region, Pt informed to use decongestant, RX given to patient, sinus rinses also recommended. Call if symptoms do not show improvement. Allergies - chronic - recommended pt to use allergy medication as prescribed. Pt has been counseled as to the appropriate use of the medication. Pt to call if allergy symptoms are not controlled with the medication. If using nasal spray, instructions as follows: Nasal spray- use twice daily, one spray per nostril twice daily, after 30 minutes, rinse out nose with saline spray.. Use opposite hand per nostril to spray in the nasal steroid allergy spray. . Hypertension - wel l controlled - continue with current medications, continue with no added salt diet. Pt has been encouraged to exercise daily. The pt has been advised to call the office if there are any acute concerns about change in blood pressure readings at home. Cough from pneumonia - improving - antibiotics finished, pt to continue with breathing treatments, wean down dose. Thrush - rx for nystatin swish and swallow . Hypertension - wel l controlled - continue with current medications, continue with no added salt diet. Pt has been encouraged to exercise daily. The pt has been advised to call the office if there are any acute concerns about change in blood pressure readings at home. Hyperlipidemia-managed by Dr Avilez-patient had labs this morning-will get a copy Elevated fasting glucose-check Hgb A1C . Well Adult - pt wa s counseled about diet, exercise, and encouraged to follow a heart healthy diet and increase activity level. The patient was instructed to RTC yearly for well adult exams and PRN for acute illnesses. The pt was also instructed to have yearly labs for check of cholesterol, thyroid, chem panel, CBC, and renal functioning. Hypertension - well controlled - continue with current medications, continue with no added salt diet. Pt has been encouraged to exercise daily. The pt has been advised to call the office if there are any acute concerns about change in blood pressure readings at home. Alleriges - kenalog shot today. Dyspnea - dulera inhaler two inhales bid. . Hypertension - wel l controlled - continue with current medications, continue with no added salt diet. Pt has been encouraged to exercise daily. The pt has been advised to call the office if there are any acute concerns about change in blood pressure readings at home. . URI - Pt advised t o increase fluids, vitamin C. Discussed natural and expected course of this diagnosis and need to alert me if symptoms do not follow expected course, or if any worse. RX sent to patient's pharmacy. . PNEUMONIA - PT IS CLINICALLY SYMPTOMATIC FOR PNEUMONIA - A CHEST XRAY, SPUTUM C AND S, BLOOD CULTURES, AND LABS HAVE BEEN ORDERED IN ORDER TO FURTHER WORK-UP THE ACUTE ILLNESS. . Occult blood negat cassy x3. . Occult blood negat cassy x3. . UTI-ER follow up - symptoms have improved -culture positive for E.coli -continue treatment with cefdinir -finish all of abx -increase water intake -decrease tea intake -call if symptoms return or any other concerns. Patient verbalized understanding of plan. . Occult blood negat cassy x3. . Pneumonia-cough- i mproving-finish abx and call if symptoms do not completely resolved-patient verbalized understanding of plan. . HTN-no well contro lled-monitor over the weekend and call with readings-call for chest pain, shortness of breath, etc. Patient verbalized understanding of plan. Cough-recent pneumonia-history of tobacco use-symptoms improved-RX for a short course of prednisone sent to patient's pharmacy and instructed on use. Call Thursday with update. Patient verbalized understanding. . Allergies - chroni c - recommended pt to use allergy medication as prescribed. Pt has been counseled as to the appropriate use of the medication. Pt to call if allergy symptoms are not controlled with the medication. If using nasal spray, instructions as follows: Nasal spray- use twice daily, one spray per nostril twice daily, after 30 minutes, rinse out nose with saline spray.. Use opposite hand per nostril to spray in the nasal steroid allergy spray. Sinusitis - Pt has acute infection - pain in face, maxillary region, Pt informed to use decongestant, RX given to patient, sinus rinses also recommended. Call if symptoms do not show improvement. Let me know if you a re not feeling any better and will order breathing treatments. . Bronchitis - acute case of bronchitis identified. Pt has been given antibiotics, steroids as appropriate, and pt has been instructed to call if symptoms are not improved, or if symptoms acutely worsen. . Hypertension - wel l controlled - continue with current medications, continue with no added salt diet. Pt has been encouraged to exercise daily. The pt has been advised to call the office if there are any acute concerns about change in blood pressure readings at home. Hyperlipidemia - pt has been counseled about appropriate diet, exercise, and need for low fat food choices. I have discussed the need for the patient to take medications as prescribed. If the patient has negative side effects from the medication, they are to CALL the office and not abruptly discontinue the medication without discussion with a practitioner in the office. We will check labs in 3-6 months for follow up on the patient's chronic medical problem and to assure normal liver response to medications. Obesity - pt has lost weight - continue with dietary changes and increased activity . Sinusitis - Pt has acute infection - pain in face, maxillary region, Pt informed to use decongestant, RX given to patient, sinus rinses also recommended. Call if symptoms do not show improvement. Allergies - chronic - recommended pt to use allergy medication as prescribed. Pt has been counseled as to the appropriate use of the medication. Pt to call if allergy symptoms are not controlled with the medication. If using nasal spray, instructions as follows: Nasal spray- use twice daily, one spray per nostril twice daily, after 30 minutes, rinse out nose with saline spray.. Use opposite hand per nostril to spray in the nasal steroid allergy spray. . UEZ-fdwwpbke-ydzad slightly elevated-patient tolerated lisinopril 5mg BID well, did not tolerate 10mg daily in the past. Recommend he monitor blood pressure and pulse at home and bring in readings for review. Aortic Stenosis-recommend stress test-refer to Dr Avilez for evaluation Hyperlipidemia-continue statin medication-increase exercise and weight loss-low fat diet. Repeat labs in 3-6 months-Patient verbalized understanding of plan. . Sinusitis - Pt has acute infection - pain in face, maxillary region, Pt informed to use decongestant, RX given to patient, sinus rinses also recommended. Call if symptoms do not show improvement. Allergies - chronic - recommended pt to use allergy medication as prescribed. Pt has been counseled as to the appropriate use of the medication. Pt to call if allergy symptoms are not controlled with the medication. If using nasal spray, instructions as follows: Nasal spray- use twice daily, one spray per nostril twice daily, after 30 minutes, rinse out nose with saline spray.. Use opposite hand per nostril to spray in the nasal steroid allergy spray. . Sinusitis - Pt has acute infection - pain in face, maxillary region, Pt informed to use decongestant, RX given to patient, sinus rinses also recommended. Call if symptoms do not show improvement. Allergies - chronic - recommended pt to use allergy medication as prescribed. Pt has been counseled as to the appropriate use of the medication. Pt to call if allergy symptoms are not controlled with the medication. If using nasal spray, instructions as follows: Nasal spray- use twice daily, one spray per nostril twice daily, after 30 minutes, rinse out nose with saline spray.. Use opposite hand per nostril to spray in the nasal steroid allergy spray. . Hypertension - unc ontrolled - the patient's medications have been modified as documented in the visit note. The patient has been counseled to cut back on salt in diet for a no added salt diet, low fat diet, start an exercise program with low weight bearing exercises and higher aerobic activity for heart health. The patient is to check blood pressure readings as an outpatient and either fax, call, or email the readings to the office next week for practitioner to review. The pt is to call for acute concerns. Increase lisinopril 5mg twice daily Diabetes - recommended that we look at labs, and may consider starting on victoza shots. Pt to keep off of metformin and stay on actos. Pt to bring in blood glucose readings. Heart Murmur - previously undiagnosed - recommended pt to have ECHO, pt also needs to have a stress test - appt with Dr. Fatmata cooper. Snoring/Sleep Disordered Breathing - discussed need for sleep study - pt to have sleep study scheduled GELA. Pt to sign release of information so that we can get his labs from his previous physician. . Well Adult - pt wa s counseled about diet, exercise, and encouraged to follow a heart healthy diet and increase activity level. The patient was instructed to RTC yearly for well adult exams and PRN for acute illnesses. The pt was also instructed to have yearly labs for check of cholesterol, thyroid, chem panel, CBC, and renal functioning. Hypertension - well controlled - continue with current medications, continue with no added salt diet. Pt has been encouraged to exercise daily. The pt has been advised to call the office if there are any acute concerns about change in blood pressure readings at home. Alleriges - kenalog shot today. Dyspnea - dulera inhaler two inhales bid. Let me know if you a re not feeling any better and will order breathing treatments. . Bronchitis - acute case of bronchitis identified. Pt has been given antibiotics, steroids as appropriate, and pt has been instructed to call if symptoms are not improved, or if symptoms acutely worsen. . Cough-kenalog inje ction today-start abx as directed-f/u , sooner if needed . WCB-[id number]-hlpgt slightly elevated-patient tolerated lisinopril 5mg BID well, did not tolerate 10mg daily in the past. Recommend he monitor blood pressure and pulse at home and bring in readings for review. Aortic Stenosis-recommend stress test-refer to Dr Avilez for evaluation Hyperlipidemia-continue statin medication-increase exercise and weight loss-low fat diet. Repeat labs in 3-6 months-Patient verbalized understanding of plan. Daytime [id number]-[id number]-refer for sleep study . URI - Pt advised t o increase fluids, vitamin C. Discussed natural and expected course of this diagnosis and need to alert me if symptoms do not follow expected course, or if any worse. RX sent to patient's pharmacy. Allergies - chronic - recommended pt to use allergy medication as prescribed. Pt has been counseled as to the appropriate use of the medication. Pt to call if allergy symptoms are not controlled with the medication. If using nasal spray, instructions as follows: Nasal spray- use twice daily, one spray per nostril twice daily, after 30 minutes, rinse out nose with saline spray.. Use opposite hand per nostril to spray in the nasal steroid allergy spray. . Welcome to [facility] Exam - today we discussed the patients past history, immunizations, preventative exams/evaluations - colonoscopy (pt is due for and will decide on surgeon for referral,) fecal occult blood testing, routine labs for renal function, glucose, cholesterol, osteoporosis evaluations, cardiovascular testing and cancer screenings. We have also discussed mental health and the signs/symptoms of depression. The patient was advised of home safety evaluations and the need to make sure that as the aging process continues, we need to be aware of different ways to make the home a safer place to reside. The patient has also been counseled that exercise is necessary - and of utmost importance as we age to help decrease fall risk and to maintain independece in the home. . Well Adult - pt wa s counseled about diet, exercise, and encouraged to follow a heart healthy diet and increase activity level. The patient was instructed to RTC yearly for well adult exams and PRN for acute illnesses. The pt was also instructed to have yearly labs for check of cholesterol, thyroid, chem panel, CBC, and renal functioning. Hypertension - well controlled - continue with current medications, continue with no added salt diet. Pt has been encouraged to exercise daily. The pt has been advised to call the office if there are any acute concerns about change in blood pressure readings at home. Alleriges - kenalog shot today. Dyspnea - dulera inhaler two inhales bid. . Bronchitis - acute case of bronchitis identified. Pt has been given antibiotics, breathing treatments as appropriate, and pt has been instructed to call if symptoms are not improved, or if symptoms acutely worsen. URI - Pt advised to increase fluids, vitamin C. Discussed natural and expected course of this diagnosis and need to alert me if symptoms do not follow expected course, or if any worse. RX sent to patient's pharmacy. Sinusitis - Pt has acute infection - pain in face, maxillary region, Pt informed to use decongestant, RX given to patient, sinus rinses also recommended. Call if symptoms do not show improvement. Allergies - chronic - recommended pt to use allergy medication as prescribed. Pt has been counseled as to the appropriate use of the medication. Pt to call if allergy symptoms are not controlled with the medication. If using nasal spray, instructions as follows: Nasal spray- use twice daily, one spray per nostril twice daily, after 30 minutes, rinse out nose with saline spray.. Use opposite hand per nostril to spray in the nasal steroid allergy spray. . Medicare Exam - to day we discussed the patients past history, immunizations, preventative exams/evaluations - colonoscopy, fecal occult blood testing, routine labs for renal function, glucose, cholesterol, osteoporosis evaluations, cardiovascular testing and cancer screenings. We have also discussed mental health and the signs/symptoms of depression. The patient was advised of home safety evaluations and the need to make sure that as the aging process continues, we need to be aware of different ways to make the home a safer place to reside. The patient has also been counseled that exercise is necessary - and of utmost importance as we age to help decrease fall risk and to maintain independece in the home. Today we discussed the need for the patient to create paperwork for Advanced directives as well as for the patient to provide this office with a copy of her [employer] paperwork for health care surrogate. . Hypertension - wel l controlled - continue with current medications, continue with no added salt diet. Pt has been encouraged to exercise daily. The pt has been advised to call the office if there are any acute concerns about change in blood pressure readings at home. Hyperlipidemia - pt has been counseled about appropriate diet, exercise, and need for low fat food choices. I have discussed the need for the patient to take medications as prescribed. If the patient has negative side effects from the medication, they are to CALL the office and not abruptly discontinue the medication without discussion with a practitioner in the office. We will check labs in 3-6 months for follow up on the patient's chronic medical problem and to assure normal liver response to medications. GET A TETANUS SHOT DOXYCYCLINE 100MG TWICE DAILY X 7 DAYS KENALOG INJECTION -call if not better and we can send in a short course of prednisone . Hypertension - well controlled - ramo nue with current medications, continue with no added salt diet. Pt has been encouraged to exercise daily. The pt has been advised to call the office if there are any acute concerns about change in blood pressure readings at home. Allergies - cough-kenalog injection today in the office - recommended pt to use allergy medication as prescribed. Pt has been counseled as to the appropriate use of the medication. Pt to call if allergy symptoms are not controlled with the medication. If using nasal spray, instructions as follows: Nasal spray- use twice daily, one spray per nostril twice daily, after 30 minutes, rinse out nose with saline spray.. Use opposite hand per nostril to spray in the nasal steroid allergy spray. Cellulitis -right index finger- rx for abx provided and instructed on use- recommend tetanus shot -call if symptoms do not resolve or if any worse
--- OUTSIDE RECORDS SUMMARY | 2019-03-16 12:30 | XMS REPORT | CCD ---
Author Author Farshad Camacho Organization Trina Camacho MD, [facility] Address [address] [place] [address] Phone Care Team Providers Care Device Processing Engineer Name Role Phone PP Unavailable CCM Unavailable Summary Purpose Interface Exchange Insurance Providers Payer name Policy type / Coverage type Covered constitution party ID Effective Begin Date Effective End Date WPS Medicare Part B Medicare Part B [id number] Unknown Cigna Medicare Part B 80 [id number] Unknown Family history Brother Diagnosis Age At Onset lung cancer Unknown Alcoholism Unknown Mother Diagnosis Age At Onset Cancer Unknown Pancratic cancer Unknown Arthritis Unknown Father Diagnosis Age At Onset Alcoholism Unknown Social History Social History Element Codes Description Effective Dates Marital status Unknown M alberot Rice 03/01/2014 Number of children Unknown 3 and 3 step 03/01/[address]: 9622324 Former smoker quit 1997 03/01/2014 Allergies, Adverse [...] 461.8 ICD-10: J01.80 02/10/2018 Active Encounter for [facility] adult medical examination with abnormal findings [...] Instructions doxycycline hyclate 100 mg tablet RxNorm: 3483400 1 Tablet(s) PO BID 11/16/2018 11/22/2018 Active Kenalog 40 mg/mL russell pension for injection RxNorm: 0121959 1.5 Milliliter(s) In j 11/16/2018 11/16/2018 In active allopurinol 300 mg t ablet RxNorm: 012170 TAKE 1 TABLET BY MOUT H ONCE DAILY 09/02/2018 No Stop Date Active Kenalog 40 mg/mL russell pension for injection RxNorm: 9940938 Milliliter(s) Inj 06/21/2018 06/21/2018 In active doxycycline hyclate 100 mg tablet RxNorm: 5596678 1 Tablet(s) PO BID 06/21/2018 06/27/2018 Inactive Tamiflu 75 mg capsule RxNorm: 021350 1 Capsule(s) PO BID 05/14/2018 05/18/2018 Inactive Kenalog 40 mg/mL russell pension for injection RxNorm: 7901891 Milliliter(s) Inj 05/14/2018 05/14/2018 In active prednisone 10 mg tablet RxNorm: 798800 Tablet(s) PO UD 03/11/2018 06/20/2018 Inactive 60,50,40,30,20,10 Kenalog 40 mg/mL russell pension for injection RxNorm: 0071019 1 Milliliter(s) Inj 03/11/2018 03/11/2018 In active Keflex 500 mg capsule RxNorm: 612148 1 Capsule(s) PO TID 03/11/2018 03/20/2018 Inactive Symbicort 160 mcg-4. 5 mcg/actuation HFA aerosol inhaler RxNorm: 5530835 2 Puff(s) INH BID 02/10/2018 No Stop Date Active Keflex 500 mg capsule RxNorm: 437597 1 Capsule(s) PO TID 02/10/2018 02/19/2018 Inactive prednisone 10 mg tablet RxNorm: 656774 Tablet(s) PO UD start on 11/1902/10/2018 03/09/2018 Inactive 60,50,40,30,20,10 Advair Diskus 250 mc g-50 mcg/dose powder for inhalation RxNorm: 8852999 1 Puff(s) INH BID 12/29/2017 No Stop Date Active Zithromax Z-Poncho 250 mg tablet RxNorm: 234808 1 Tablet(s) PO UD 12/29/2017 01/02/2018 Inactive zpack Tessalon Perles 100 mg capsule RxNorm: 063660 1-2 Capsule(s) PO TID as needed 12/29/2017 01/02/2018 In active allopurinol 300 mg t ablet RxNorm: 819416 Tablet(s) TAKE ONE TA BLET BY MOUTH ONCE DAILY 12/10/2017 09/01/2018 Inactive Kenalog 40 mg/mL russell pension for injection RxNorm: 9196096 1.5 Milliliter(s) In j 12/03/2017 12/03/2017 In active allopurinol 300 mg t ablet RxNorm: 624367 TAKE ONE TABLET BY MO UTH ONCE DAILY 09/08/2017 12/09/2017 In active allopurinol 300 mg t ablet RxNorm: 522138 TAKE ONE TABLET BY MO UTH ONCE DAILY 06/15/2017 09/07/2017 In active Keflex 500 mg capsule RxNorm: 790622 1 Capsule(s) PO TID 05/04/2017 05/13/2017 Inactive Kenalog 40 mg/mL russell pension for injection RxNorm: 8163456 1 Milliliter(s) Inj 03/17/2017 03/17/2017 In active Keflex 500 mg capsule RxNorm: 000166 1 Capsule(s) PO TID 03/13/2017 03/12/2017 Inactive Keflex 500 mg capsule RxNorm: 117504 1 Capsule(s) PO TID 03/13/2017 03/22/2017 Inactive prednisone 10 mg tablet RxNorm: 419696 Tablet(s) PO UD start on 11/1911/18/2016 12/23/2016 Inactive 60,50,40,30,20,10 Advair Diskus 250 mc g-50 mcg/dose powder for inhalation RxNorm: 4835704 1 Puff(s) INH BID 11/18/2016 12/28/2017 Inactive doxycycline hyclate 100 mg capsule RxNorm: 1095976 1 Capsule(s) PO BID 11/18/2016 11/27/2016 In active Kenalog 40 mg/mL russell pension for injection RxNorm: 7137528 Milliliter(s) Inj 11/18/2016 11/18/2016 In active nystatin 100,000 uni t/mL oral suspension RxNorm: 364777 5 Milliliter(s) PO QI D 05/20/2016 05/29/2016 In active allopurinol 300 mg t ablet RxNorm: 414505 TAKE ONE TABLET BY [facility] ONCE DAILY 05/11/2016 05/05/2017 In active Tessalon Perles 100 mg capsule RxNorm: 066858 1-2 Capsule(s) PO TID as needed 04/29/2016 05/03/2016 In active Prilosec OTC 20 mg t ablet,delayed release RxNorm: 479117 Tablet(s) PO 04/28/2016 11/16/2016 In active doxycycline hyclate 100 mg capsule RxNorm: 5062846 1 Capsule(s) PO BID 04/28/2016 05/07/2016 In active Tamiflu 75 mg capsule RxNorm: 803832 1 Capsule(s) PO BID 04/07/2016 04/11/2016 Inactive Tamiflu 75 mg capsule RxNorm: 132301 1 Capsule(s) PO BID 04/07/2016 04/06/2016 Inactive prednisone 20 mg tablet RxNorm: 230238 1 Tablet(s) PO BID 04/04/2016 04/08/2016 Inactive Kenalog 40 mg/mL russell pension for injection RxNorm: 9581757 1 Milliliter(s) Inj 03/24/2016 03/24/2016 In active cefdinir 300 mg capsule RxNorm: 379563 1 Capsule(s) PO BID 03/24/2016 03/30/2016 Inactive Zithromax Z-Poncho 250 mg tablet RxNorm: 213943 1 Tablet(s) PO UD 03/24/2016 03/28/2016 Inactive zpack cefdinir 300 mg capsule RxNorm: 391610 1 Capsule(s) PO BID 03/24/2016 03/23/2016 Inactive Flonase Allergy Reli ef 50 mcg/actuation nasal spray,suspension RxNorm: 9313978 1 Gunlock NASAL BID 02/13/2016 No Stop Date Active doxycycline hyclate 100 mg capsule RxNorm: 1386406 1 Capsule(s) PO BID 02/13/2016 02/19/2016 In active lisinopril 5 mg tablet RxNorm: 258181 1 Tablet(s) PO BID TAKE ONE TABLET BY MO [facility] TWICE DAILY 11/20/2015 05/12/2016 Inactive hold until patient calls fo r refill doxycycline hyclate 100 mg capsule RxNorm: 0958622 1 Capsule(s) PO BID 08/02/2015 08/08/2015 In active Kenalog 40 mg/mL russell pension for injection RxNorm: 8569643 Milliliter(s) Inj 08/02/2015 08/02/2015 In active lisinopril 5 mg tablet RxNorm: 181034 TAKE ONE TABLET BY MOUTH TWICE DAILY 06/11/2015 11/19/2015 In active allopurinol 300 mg t ablet RxNorm: 726618 1 Tablet(s) PO daily 05/08/2015 05/01/2016 Inactive lisinopril 5 mg tablet RxNorm: 733665 1 Tablet(s) PO BID 01/30/2015 05/29/2015 Inactive [AttnRPh: Saving apply/adjudicate RxGRP:SG20 RxBIN:[id number] RxPCN: ID#:[id number]] Zithromax Z-Poncho 250 mg tablet RxNorm: 580649 1 Tablet(s) PO UD 01/10/2015 03/23/2016 Inactive zpack allopurinol 300 mg t ablet RxNorm: 300750 1 Tablet(s) PO daily 10/31/2014 04/28/2015 Inactive lisinopril 5 mg tablet RxNorm: 177676 1 Tablet(s) PO BID 07/31/2014 11/27/2014 Inactive [AttnRPh: Saving apply/adjudicate RxGRP:SG20 RxBIN:[id number] RxPCN:HT ID#:[id number]] allopurinol 300 mg t ablet RxNorm: 364581 1 Tablet(s) PO daily 05/17/2014 10/30/2014 Inactive lisinopril 5 mg tablet RxNorm: 280440 1 Tablet(s) PO BID 03/01/2014 06/28/2014 Inactive [SAVINGS FOR UNINSURED PATIENTS -- BIN:[id number], PCN: [id number], Group: [id number], ID# [id number], Process claim through Go Voc[employer], for questions: . THIS IS NOT INSURANCE.] Fish Oil 1,000 mg ca psule RxNorm: 3 Capsule(s) PO daily No Start Date Active B Complex 1 oral RxNorm: 82011 oral No Start Date Active Vitamin D3 1,000 uni t capsule RxNorm: 603647 2 Capsule(s) PO daily No Start Date Active Zyrtec 10 mg capsule RxNorm: 0239211 1 Capsule(s) PO daily No Start Date Active fenofibrate nanocrys tallized 48 mg tablet RxNorm: 133379 1 Tablet(s) PO daily No Start Date Active metoprolol tartrate 25 mg tablet RxNorm: 287963 1 Tablet(s) PO daily No Start Date Active multivitamin tablet RxNorm: 1 Tablet(s) PO daily No Start Date Active pravastatin 40 mg ta blet RxNorm: 453579 1 Tablet(s) PO daily No Start Date Active Tessalon Perles 100 mg capsule RxNorm: 314635 1-2 Capsule(s) PO TID as needed No Start Date 04/28/2016 Inactive allopurinol 300 mg t ablet RxNorm: 540838 1 Tablet(s) PO daily No Start Date 05/16/2014 Inactive metformin 500 mg tablet RxNorm: 968924 1 Tablet(s) PO BID No Start Date 02/14/2014 Inactive pioglitazone 15 mg t ablet RxNorm: 985584 1 Tablet(s) PO daily No Start Date 07/30/2014 Inactive lisinopril 5 mg tablet RxNorm: 682332 1 Tablet(s) PO daily No Start Date 02/28/2014 Inactive losartan 25 mg tablet RxNorm: 395800 1/2 Tablet(s) PO daily No Start Date 01/12/2018 Inactive Zithromax Z-Poncho 250 mg tablet RxNorm: 094435 1 Tablet(s) PO UD No Start Date 01/09/2015 Inactive zpack Medication Administered Medication Codes Instruc tions Start Date Status Kenalog 40 mg/mL suspension for injection RxNorm: 9922055 1.5Milliliter 11/16/2018 Active Kenalog 40 mg/mL suspension for injection RxNorm: 1254640 Milliliter 06/21/2018 No longer Active Kenalog 40 mg/mL suspension for injection RxNorm: 7560584 Milliliter 05/14/2018 No longer Active Kenalog 40 mg/mL suspension for injection RxNorm: 7148283 1Milliliter 03/11/2018 N o longer Active Kenalog 40 mg/mL suspension for injection RxNorm: 2540349 1.5Milliliter 12/03/2017 No longer Active Kenalog 40 mg/mL suspension for injection RxNorm: 3076509 1Milliliter 03/17/2017 N o longer Active Kenalog 40 mg/mL suspension for injection RxNorm: 6019262 Milliliter 11/18/2016 No longer Active Kenalog 40 mg/mL suspension for injection RxNorm: 4986581 1Milliliter 03/24/2016 N o longer Active Kenalog 40 mg/mL suspension for injection RxNorm: 7525709 Milliliter 08/02/2015 No longer Active Immunizations Vaccine [...] Item Item Code Result Date Comp Metabolic Ebe304 NA 138 mEq/L 06/22/2018 Comp Metabolic Kvr894 K 4.3 mEq/L 06/22/2018 Comp Metabolic Qfw250 CL 102 mEq/L 06/22/2018 Comp Metabolic Unb475 CO2 29.0 mEq/L 06/22/2018 Comp Metabolic Iqs833 AN ION GAP 11 06/22/2018 Comp Metabolic Oyj605 GL UCOSE 89 mg/dL 06/22/2018 Comp Metabolic Nns786 Cr eat 1.3 mg/dL 06/22/2018 Comp Metabolic Ddr435 eG FR 59 ml/min/1.73m2 06/22 Comp Metabolic Hik269 BUN 21 mg/dL 06/22/2018 Comp Metabolic Vos059 B/ C Ratio 16.4 Ratio 06/22/2018 Comp Metabolic Grz784 CA LCIUM 8.8 mg/dL 06/22/2018 Comp Metabolic Ken000 AL K PHOS 70 U/L 06/22/2018 Comp Metabolic Lrw525 T(SGOT) 26 U/L 06/22/2018 Comp Metabolic Xds012 AL T(SGPT) 21 U/L 06/22/2018 Comp Metabolic Qdc767 BI LI T 0.6 mg/dL 06/22/2018 Comp Metabolic Ags697 AL BUMIN 3.9 g/dL 06/22/2018 Comp Metabolic Uyu573 TP RO 6.7 g/dL 06/22/2018 Comp Metabolic Iop070 GL OB 2.8 g/dL 06/22/2018 Comp Metabolic Ibe047 A/ G Ratio 1.4 Ratio 06/22/2018 Comp Metabolic Sur891 Os mo 278 mOsmo 06/22/2018 Cbc With [...] 32.7 pg 06/22/2018 Cbc With Differential Ord2 Loup% 11.0 % 06/22/2018 Cbc With Differential Ord2 MCHC 33.3 pg 06/22/2018 Cbc With Differential Ord2 Eos% 2.3 % 06/22/2018 Cbc With Differential Ord2 PLT 134 K/ul 06/22/2018 Cbc With Differential Ord2 Baso% 0.1 % 06/22/2018 Cbc With Differential Ord2 RDW 13.8 % 06/22/2018 Cbc With Differential Ord2 Neut ABS# 4.99 K/ul 06/22/2018 Cbc With Differential Ord2 Lymph ABS# 1.49 K/ul 06/22/2018 Cbc With Differential Ord2 Loup ABS# 0.8 K/ul 06/22/2018 Cbc With Differential Ord2 Eos ABS# 0.2 K/ul 06/22/2018 Cbc With Differential Ord2 Baso ABS# 0.0 K/ul 06/22/2018 Lipid Ord30 CHOL 161 mg/dL 06/09/2018 Lipid Ord30 HDL 41.0 mg/dl 06/09/2018 Lipid Ord30 TRIG 122 mg/dL 06/09/2018 Lipid Ord30 LDL 96 mg/dL 06/09/2018 Lipid Ord30 C/HDL 3.9 Ratio 06/09/2018 Comp Metabolic Tzz014 NA 141 mEq/L 06/09/2018 Comp Metabolic Usb145 K 4.4 mEq/L 06/09/2018 Comp Metabolic Llj945 CL 105 mEq/L 06/09/2018 Comp Metabolic Kon098 CO2 27.0 mEq/L 06/09/2018 Comp Metabolic Nax013 AN ION GAP 13 06/09/2018 Comp Metabolic Gil571 GL UCOSE 118 mg/dL 06/09/2018 Comp Metabolic Hsh400 Cr eat 1.4 mg/dL 06/09/2018 Comp Metabolic Lav956 eG FR 54 ml/min/1.73m2 06/09 Comp Metabolic Sbf908 BUN 15 mg/dL 06/09/2018 Comp Metabolic Qok841 B/ C Ratio 10.8 Ratio 06/09/2018 Comp Metabolic Wkg656 CA LCIUM 9.0 mg/dL 06/09/2018 Comp Metabolic Tbb274 AL K PHOS 77 U/L 06/09/2018 Comp Metabolic Mev871 T(SGOT) 24 U/L 06/09/2018 Comp Metabolic Roc110 AL T(SGPT) 32 U/L 06/09/2018 Comp Metabolic Rtm444 BI LI T 0.6 mg/dL 06/09/2018 Comp Metabolic Oeg013 AL BUMIN 4.0 g/dL 06/09/2018 Comp Metabolic Ied958 TP RO 6.9 g/dL 06/09/2018 Comp Metabolic Obl581 GL OB 3.0 g/dL 06/09/2018 Comp Metabolic Rht099 A/ G Ratio 1.3 Ratio 06/09/2018 Comp Metabolic Ocl510 Os mo 283 mOsmo 06/09/2018 Comp Metabolic Zpo460 NA 136 mEq/L 12/22/2017 Comp Metabolic Ogb895 K 4.2 mEq/L 12/22/2017 Comp Metabolic Ubq723 CL 105 mEq/L 12/22/2017 Comp Metabolic Fqh332 CO2 30.0 mEq/L 12/22/2017 Comp Metabolic Dhu466 AN ION GAP 5 12/22/2017 Comp Metabolic Qmh690 GL UCOSE 85 mg/dL 12/22/2017 Comp Metabolic Gjh150 Cr eat 1.2 mg/dL 12/22/2017 Comp Metabolic Mtc483 eG FR 62 ml/min/1.73m2 12/22 Comp Metabolic Eij247 BUN 17 mg/dL 12/22/2017 Comp Metabolic Vdu079 B/ C Ratio 13.9 Ratio 12/22/2017 Comp Metabolic Oaw665 CA LCIUM 9.3 mg/dL 12/22/2017 Comp Metabolic Rjo402 AL K PHOS 78 U/L 12/22/2017 Comp Metabolic Rrd031 T(SGOT) 24 U/L 12/22/2017 Comp Metabolic Sfr983 AL T(SGPT) 28 U/L 12/22/2017 Comp Metabolic Tqn512 BI LI T 0.5 mg/dL 12/22/2017 Comp Metabolic Bxt209 AL BUMIN 4.0 g/dL 12/22/2017 Comp Metabolic Mdv897 TP RO 6.6 g/dL 12/22/2017 Comp Metabolic Tyi309 GL OB 2.6 g/dL 12/22/2017 Comp Metabolic Vps859 A/ G Ratio 1.6 Ratio 12/22/2017 Comp Metabolic Yej610 Os mo 273 mOsmo 12/22/2017 Cbc With [...] 31.9 pg 12/22/2017 Cbc With Differential Ord2 Loup% 6.3 % 12/22/2017 Cbc With Differential Ord2 MCHC 33.6 pg 12/22/2017 Cbc With Differential Ord2 Eos% 3.5 % 12/22/2017 Cbc With Differential Ord2 PLT 138 K/ul 12/22/2017 Cbc With Differential Ord2 Baso% 0.2 % 12/22/2017 Cbc With Differential Ord2 RDW 14.7 % 12/22/2017 Cbc With Differential Ord2 Neut ABS# 6.07 K/ul 12/22/2017 Cbc With Differential Ord2 Lymph ABS# 1.92 K/ul 12/22/2017 Cbc With Differential Ord2 Loup ABS# 0.6 K/ul 12/22/2017 Cbc With Differential Ord2 Eos ABS# 0.3 K/ul 12/22/2017 Cbc With Differential Ord2 Baso ABS# 0.0 K/ul 12/22/2017 Comp Metabolic Leq998 NA 135 mEq/L 06/22/2017 Comp Metabolic Yhq341 K 4.2 mEq/L 06/22/2017 Comp Metabolic Vcs883 CL 101 mEq/L 06/22/2017 Comp Metabolic Uwp211 CO2 27.0 mEq/L 06/22/2017 Comp Metabolic Scg253 AN ION GAP 11 06/22/2017 Comp Metabolic Ieg294 GL UCOSE 89 mg/dL 06/22/2017 Comp Metabolic Ovf314 Cr eat 1.5 mg/dL 06/22/2017 Comp Metabolic Dlw164 eG FR 51 ml/min/1.73m2 06/22 Comp Metabolic Nyh641 BUN 16 mg/dL 06/22/2017 Comp Metabolic Dar159 B/ C Ratio 11.0 Ratio 06/22/2017 Comp Metabolic Hwu052 CA LCIUM 8.9 mg/dL 06/22/2017 Comp Metabolic Agp814 AL K PHOS 79 U/L 06/22/2017 Comp Metabolic Ojq569 T(SGOT) 26 U/L 06/22/2017 Comp Metabolic Gme140 AL T(SGPT) 26 U/L 06/22/2017 Comp Metabolic Nrk086 BI LI T 0.4 mg/dL 06/22/2017 Comp Metabolic Ksr248 AL BUMIN 4.1 g/dL 06/22/2017 Comp Metabolic Sjl501 TP RO 6.9 g/dL 06/22/2017 Comp Metabolic Jte978 GL OB 2.8 g/dL 06/22/2017 Comp Metabolic Fxq952 A/ G Ratio 1.5 Ratio 06/22/2017 Comp Metabolic Dbn966 Os mo 271 mOsmo 06/22/2017 Cbc With [...] 22.3 % 06/22/2017 Cbc With Differential Ord2 MCH 32.6 pg 06/22/2017 Cbc With Differential Ord2 Loup% 7.9 % 06/22/2017 Cbc With Differential Ord2 MCHC 34.0 pg 06/22/2017 Cbc With Differential Ord2 Eos% 3.3 % 06/22/2017 Cbc With Differential Ord2 PLT 155 K/ul 06/22/2017 Cbc With Differential Ord2 Baso% 0.2 % 06/22/2017 Cbc With Differential Ord2 RDW 13.8 % 06/22/2017 Cbc With Differential Ord2 Neut ABS# 6.35 K/ul 06/22/2017 Cbc With Differential Ord2 Lymph ABS# 2.14 K/ul 06/22/2017 Cbc With Differential Ord2 Loup ABS# 0.8 K/ul 06/22/2017 Cbc With Differential [...] 33.2 pg 12/25/2015 Cbc With Differential Ord2 Loup% 7.6 % 12/25/2015 Cbc With Differential Ord2 MCHC 34.3 pg 12/25/2015 Cbc With Differential Ord2 Eos% 2.4 % 12/25/2015 Cbc With Differential Ord2 PLT 134 K/ul 12/25/2015 Cbc With Differential Ord2 Baso% 0.8 % 12/25/2015 Cbc With Differential Ord2 RDW 14.3 % 12/25/2015 Cbc With Differential Ord2 Neut ABS# 4.72 K/ul 12/25/2015 Cbc With Differential Ord2 Lymph ABS# 1.86 K/ul 12/25/2015 Cbc With Differential Ord2 Loup ABS# 0.6 K/ul 12/25/2015 Cbc With Differential Ord2 Eos ABS# 0.2 K/ul 12/25/2015 Cbc With Differential Ord2 Baso ABS# 0.1 K/ul 12/25/2015 Comp Metabolic Faf004 NA 136 mEq/L 12/25/2015 Comp Metabolic Nyl491 K 4.2 mEq/L 12/25/2015 Comp Metabolic Xtj638 CL 104 mEq/L 12/25/2015 Comp Metabolic Nck514 CO2 26.0 mEq/L 12/25/2015 Comp Metabolic Udl826 AN ION GAP 10 12/25/2015 Comp Metabolic Rmi666 GL UCOSE 104 mg/dL 12/25/2015 Comp Metabolic Rrn518 Cr eat 1.3 mg/dL 12/25/2015 Comp Metabolic Ahm617 eG FR 59 ml/min/1.73m2 12/24 Comp Metabolic Tpt620 BUN 23 mg/dL 12/25/2015 Comp Metabolic Tio115 B/ C Ratio 18.0 Ratio 12/25/2015 Comp Metabolic Ulv436 CA LCIUM 9.1 mg/dL 12/25/2015 Comp Metabolic Xmu357 AL K PHOS 76 U/L 12/25/2015 Comp Metabolic Gjp802 T(SGOT) 30 U/L 12/25/2015 Comp Metabolic Bjr849 AL T(SGPT) 28 U/L 12/25/2015 Comp Metabolic Ope787 BI LI T 0.3 mg/dL 12/25/2015 Comp Metabolic Aok424 AL BUMIN 4.0 g/dL 12/25/2015 Comp Metabolic Zjo880 TP RO 6.6 g/dL 12/25/2015 Comp Metabolic Sys005 GL OB 2.6 g/dL 12/25/2015 Comp Metabolic Tvn871 A/ G Ratio 1.5 Ratio 12/25/2015 Comp Metabolic Eqe602 Os mo 276 mOsmo 12/25/2015 Cbc With [...] 32.4 pg 06/25/2015 Cbc With Differential Ord2 Loup% 7.1 % 06/25/2015 Cbc With Differential Ord2 MCHC 34.1 pg 06/25/2015 Cbc With Differential Ord2 Eos% 1.6 % 06/25/2015 Cbc With Differential Ord2 PLT 164 K/ul 06/25/2015 Cbc With Differential Ord2 Baso% 0.2 % 06/25/2015 Cbc With Differential Ord2 RDW 14.1 % 06/25/2015 Cbc With Differential Ord2 Neut ABS# 6.38 K/ul 06/25/2015 Cbc With Differential Ord2 Lymph ABS# 2.18 K/ul 06/25/2015 Cbc With Differential Ord2 Loup ABS# 0.7 K/ul 06/25/2015 Cbc With Differential Ord2 Eos ABS# 0.2 K/ul 06/25/2015 Cbc With Differential Ord2 Baso ABS# 0.0 K/ul 06/25/2015 Cbc With Differential Ord2 New Analyzer Notice Please note new ref ranges s tarting 03-28-2015 due to implemntation of new five part differential hematolgy analyzer. 06/25/2015 %Hba1C Qmj890 % HbA1c 74329-4 6.1 % 06/25/2015 %Hba1C Zxs004 Gluc Ave 128 mg/dL 06/25/2015 Comp Metabolic Oaz365 NA 135 mEq/L 06/25/2015 Comp Metabolic Afl842 K 4.3 mEq/L 06/25/2015 Comp Metabolic Eep218 CL 102 mEq/L 06/25/2015 Comp Metabolic Lsn837 CO2 26.0 mEq/L 06/25/2015 Comp Metabolic Oqi111 AN ION GAP 11 06/25/2015 Comp Metabolic Jyc203 GL UCOSE 81 mg/dL 06/25/2015 Comp Metabolic Vie220 Cr eat 1.5 mg/dL 06/25/2015 Comp Metabolic Cjq278 eG FR 49 ml/min/1.73m2 06/24 Comp Metabolic Dyr163 BUN 20 mg/dL 06/25/2015 Comp Metabolic Ukh910 B/ C Ratio 13.2 Ratio 06/25/2015 Comp Metabolic Dds298 CA LCIUM 9.5 mg/dL 06/25/2015 Comp Metabolic Qba987 AL K PHOS 65 U/L 06/25/2015 Comp Metabolic Nqn075 T(SGOT) 25 U/L 06/25/2015 Comp Metabolic Eaa557 AL T(SGPT) 29 U/L 06/25/2015 Comp Metabolic Brs617 BI LI T 0.4 mg/dL 06/25/2015 Comp Metabolic Xci615 AL BUMIN 4.4 g/dL 06/25/2015 Comp Metabolic Yzh842 TP RO 7.3 g/dL 06/25/2015 Comp Metabolic Ubo636 GL OB 3.0 g/dL 06/25/2015 Comp Metabolic Gay864 A/ G Ratio 1.5 Ratio 06/25/2015 Comp Metabolic Jxg123 Os mo 272 mOsmo 06/25/2015 Tsh Ord6 hTSH II 3.03 uIU/mL 06/25/2015 Lipid Ord30 CHOL 150 mg/dL 06/22/2015 Lipid Ord30 HDL 34.0 mg/dl 06/22/2015 Lipid Ord30 TRIG 149 mg/dL 06/22/2015 Lipid Ord30 LDL 86 mg/dL 06/22/2015 Lipid Ord30 C/HDL 4.4 Ratio 06/22/2015 Hepatic Vit362 ALBUMIN 4.3 g/dL 06/22/2015 Hepatic Afi780 TPRO 7.0 g/dL 06/22/2015 Hepatic Yfe909 GLOB 2.8 g/dL 06/22/2015 Hepatic Jri769 A/G Ratio 1.5 Ratio 06/22/2015 Hepatic Zkl145 ALK PHOS 65 U/L 06/22/2015 Hepatic Dup372 ALT(SGPT) 33 U/L 06/22/2015 Hepatic Vlw320 AST(SGOT) 28 U/L 06/22/2015 Hepatic Ajz003 BILI T 0.5 mg/dL 06/22/2015 Hepatic Tzo586 BILI D 0.1 mg/dL 06/22/2015 Hepatic Mvo866 BILI I 0.4 mg/dL 06/22/2015 Review of [...] normal 11/16/2018 None Full Exam - General 1994 [...] clear 09/02/2018 None Full Exam - General 1995 Ears/Nose/Throat oral cavity/pharynx/larynx Overall: oropharyngeal mucosa clear 09/02/2018 None Full Exam - General 1995 Ears/Nose/Throat oral cavity/pharynx/larynx Overall: hypopharynx benign 09/02/2018 [...] CPT-4: J3301 06/21/2018 THER/PROPH/DIAG INJ SC/IM CPT-4: 93800 05/14/2018 TRIAMCINOLONE ACET I [place] NOS CPT-4: J3301 05/14/2018 TRIAMCINOLONE ACET I [place] NOS CPT-4: J3301 03/11/2018 THER/PROPH/DIAG INJ SC/IM CPT-4: 96083 03/11/2018 PPPS, SUBSEQ VISIT CPT- 4: G0439 01/13/2018 TRIAMCINOLONE ACET I [place] NOS CPT-4: J3301 12/03/2017 THER/PROPH/DIAG INJ SC/IM CPT-4: 46175 12/03/2017 TRIAMCINOLONE ACET I [place] NOS CPT-4: J3301 06/24/2017 TRIAMCINOLONE ACET I [place] NOS CPT-4: J3301 03/17/2017 TRIAMCINOLONE ACET I [place] NOS CPT-4: J3301 11/18/2016 TRIAMCINOLONE ACET I [place] NOS CPT-4: J3301 03/24/2016 THER/PROPH/DIAG INJ SC/IM CPT-4: 16468 03/24/2016 TRIAMCINOLONE ACET I [place] NOS CPT-4: J3301 08/02/2015 OCCULT BLOOD FECES CPT- 4: 50608 08/03/2014 INITIAL PREVENTIVE EXAM CPT-4: G0402 07/31/2014 Vital Signs Date Vital 11/16/2018 Blood Pressure 1: 128/74 Code: 8480-6 BMI: 38.2 Code: 18531-0 Heart Rate 1: 58 bpm Height: 5'10" SpO2: 98% Temperature: 36.6 (C ) / 97.8 (F) Weight: 266 lbs 09/02/2018 Blood Pressure 1: 146/80 Code: 8480-6 BMI: 37.4 Code: 82331-2 Heart Rate 1: 58 bpm Height: 5'10" SpO2: 97% Weight: 261 lbs 06/21/2018 Blood Pressure 1: 130/80 Code: 8480-6 Heart Rate 1: 94 bpm Height: 5'10" SpO2: 95% Weight: 05/14/2018 Blood Pressure 1: 144/84 Code: 8480-6 Heart Rate 1: 70 bpm Height: SpO2: 95% Weight: 03/11/2018 Blood Pressure 1: 134/76 Code: 8480-6 BMI: 35.7 Code: 99378-9 Heart Rate 1: 60 bpm Height: 5'10" SpO2: 96% Weight: 249 lbs 02/10/2018 Blood Pressure 1: 140/72 Code: 8480-6 BMI: 33.7 Code: 58696-3 Heart Rate 1: 48 bpm Height: 5'10" SpO2: 95% Temperature: 36.6 (C ) / 97.8 (F) Weight: 235 lbs 01/13/2018 Blood Pressure 1: 118/66 Code: 8480-6 BMI: 33.3 Code: 46239-5 Heart Rate 1: 57 bpm Height: 5'10" SpO2: 98% Waist Measure (cm): 97 cm Weight: 232 lbs 12/23/2017 Blood Pressure 1: 120/62 Code: 8480-6 BMI: 33.7 Code: 60133-8 Heart Rate 1: 58 bpm Height: 5'10" SpO2: 96% Weight: 235 lbs 06/24/2017 Blood Pressure 1: 136/74 Code: 8480-6 BMI: 38.7 Code: 95091-9 Heart Rate 1: 75 bpm Height: 5'10" SpO2: 98% Weight: 270 lbs 03/17/2017 Blood Pressure 1: 138/78 Code: 8480-6 Heart Rate 1: 65 bpm SpO2: 97% Temperature: 36.6 (C ) / 97.8 (F) 12/24/2016 Blood Pressure 1: 134/78 Code: 8480-6 BMI: 37.2 Code: 37527-2 Heart Rate 1: 56 bpm Height: 5'10" SpO2: 98% Weight: 259 lbs 11/18/2016 Blood Pressure 1: 130/72 Code: 8480-6 BMI: 37.3 Code: 39053-4 Heart Rate 1: 70 bpm Height: 5'10" SpO2: 95% Weight: 260 lbs 06/24/2016 Blood Pressure 1: 134/80 Code: 8480-6 BMI: 38.3 Code: 07662-6 Heart Rate 1: 66 bpm Height: 5'10" SpO2: 98% Weight: 267 lbs 05/20/2016 Blood Pressure 1: 138/82 Code: 8480-6 BMI: 37.4 Code: 70069-1 Heart Rate 1: 65 bpm Height: 5'10" SpO2: 100% Weight: 261 lbs 05/09/2016 Blood Pressure 1: 154/78 Code: 8480-6 Heart Rate 1: 82 bpm Height: SpO2: 89% Temperature: 36.2 (C ) / 97.2 (F) Weight: 04/28/2016 Blood Pressure 1: 112/62 Code: 8480-6 BMI: 37.9 Code: 37217-0 Heart Rate 1: 73 bpm Height: 5'10" SpO2: 94% Temperature: 37.2 (C ) / 98.9 (F) Weight: 264 lbs 04/04/2016 Blood Pressure 1: 150/86 Code: 8480-6 Blood Pressure 1: 148/86 Code: 8480-6 Heart Rate 1: 71 bpm SpO2: 93% SpO2: 95% Temperature: 37.2 (C ) / 99.0 (F) 03/28/2016 Blood Pressure 1: 156/74 Code: 8480-6 BMI: 38.0 Code: 18382-5 Heart Rate 1: 84 bpm Height: 5'10" SpO2: 95% Weight: 265 lbs 02/13/2016 Blood Pressure 1: 118/62 Code: 8480-6 BMI: 39.2 Code: 79149-7 Heart Rate 1: 65 bpm Height: 5'10" SpO2: 96% Weight: 273 lbs 08/02/2015 Blood Pressure 1: 150/82 Code: 8480-6 BMI: 38.3 Code: 15224-2 Heart Rate 1: 75 bpm Height: 5'10" SpO2: 93% Weight: 267 lbs 06/22/2015 Blood Pressure 1: 138/80 Code: 8480-6 BMI: 38.7 Code: 51147-2 Heart Rate 1: 76 bpm Height: 5'10" SpO2: 96% Weight: 270 lbs 07/31/2014 Blood Pressure 1: 138/70 Code: 8480-6 BMI: 37.7 Code: 98732-9 Heart Rate 1: 70 bpm Height: 5'10" Respiratory Rate: 20 bpm Weight: 263 lbs 03/20/2014 Blood Pressure 1: 142/80 Code: 8480-6 BMI: 37.7 Code: 90383-7 Heart Rate 1: 64 bpm Height: 5'10" Weight: 263 lbs 03/01/2014 Blood Pressure 1: 150/90 Code: 8480-6 Blood Pressure 2: 140/80 Code: 8480-6 BMI: 37.3 Code: 60951-1 Heart Rate 1: 56 bpm Height: 5'10" [...] ongoing 06/24/2016 None Hospital Follow Up _ Ot er: dyspnea, hypoxemia, pneumonia 05/20/2016 None Hospital [...] cts 05/09/2016 None cough Location in the th roat 04/28/2016 None cough Quality constant 04/28/2016 [...] Encounters Encounter Performer Loca tion Codes Date ([id number]) 08822 EST. P ATIENT, LEVEL III Diagnosis: Cough[ICD10: R05] Diagnosis: Acute bronchitis, unspecified[ICD10: J20.9] [facility] CPT-4: 56930 11/16/2018 ([id number]) 02628 EST. P ATIENT, LEVEL III Diagnosis: Urinary tract infection, site not specified[ICD10: N39.0] [facility] CPT-4: 09825 09/02/2018 ([id number]) 59510 EST. P ATIENT, LEVEL III Diagnosis: Essential (primary) hypertension[ICD10: I10] Diagnosis: Cough[ICD10: R05] Diagnosis: Cellulitis of right finger[ICD10: L03.011] Diagnosis: Other allergic rhinitis[ICD10: J30.89] Susu Camacho MD, [facility] CPT-4: 16323 06/21/2018 33020 EST. PATIENT, LEVEL III Diagnosis: Acute laryngopharyngitis[ICD10: J06.0] Diagnosis: Other allergic rhinitis[ICD10: J30.89] Diagnosis: Cough[ICD10: R05] Lulu Camacho MD, [facility] CPT-4: 50880 05/14/2018 07145 EST. PATIENT, LEVEL IV Diagnosis: Other acute sinusitis[ICD10: J01.80] Diagnosis: Other allergic rhinitis[ICD10: J30.89] Diagnosis: Cough[ICD10: R05] Lulu Camacho MD, [facility] CPT-4: 54619 03/11/2018 07013 EST. PATIENT, LEVEL IV Diagnosis: Other acute sinusitis[ICD10: J01.80] Diagnosis: Other allergic rhinitis[ICD10: J30.89] Lulu Camacho MD, [facility] CPT-4: 31921 02/10/2018 ([id number]) 25607 EST. P ATIENT, LEVEL IV Diagnosis: Essential (primary) hypertension[ICD10: I10] Diagnosis: Mixed hyperlipidemia[ICD10: E78.2] Diagnosis: Nonrheumatic aortic (valve) stenosis[ICD10: I35.0] Trina Camacho MD, [facility] CPT-4: 00626 12/23/2017 ([id number]) PER PM REEVA L EST PAT 65+ YR Diagnosis: Encounter for general adult medical examination with abnormal findings[ICD10: Z00.01] Trina Camacho MD, [facility] CPT-4: 22197 06/24/2017 ([id number]) Patient adm itted to the hospital from clinic (NO CHARGE) Diagnosis: [ICD9: ] Diagnosis: Essential (primary) hypertension[ICD10: I10] Diagnosis: Other allergic rhinitis[ICD10: J30.89] Diagnosis: Cough[ICD10: R05] Diagnosis: Mixed hyperlipidemia[ICD10: E78.2] Trina Camacho MD, [facility] CPT- 4: 27967X 06/24/2017 60129 EST. PATIENT, LEVEL IV Diagnosis: Other acute sinusitis[ICD10: J01.80] Diagnosis: Other allergic rhinitis[ICD10: J30.89] Lulu Camacho MD, [facility] CPT-4: 68512 03/17/2017 ([id number]) 14319 EST. P ATIENT, LEVEL IV Diagnosis: Essential (primary) hypertension[ICD10: I10] Diagnosis: Mixed hyperlipidemia[ICD10: E78.2] Trina Camacho MD, [facility] CPT- 4: 42590 12/24/2016 85737 EST. PATIENT, LEVEL IV Diagnosis: Acute bronchitis due to other specified organisms[ICD10: J20.8] Lulu Camacho MD, [facility] CPT-4: 82506 11/18/2016 ([id number]) 90659 EST. P ATIENT, LEVEL III Diagnosis: Essential (primary) hypertension[ICD10: I10] Trina Camacho MD, [facility] CPT-4: 09598 06/24/2016 ([id number]) 28720 EST. P ATIENT, LEVEL III Diagnosis: Essential (primary) hypertension[ICD10: I10] Diagnosis: Cough[ICD10: R05] Diagnosis: Candidal stomatitis[ICD10: B37.0] Trina Camacho MD, [facility] CPT-4: 61735 05/20/2016 ([id number]) Patient adm itted to the hospital from clinic (NO CHARGE) Diagnosis: Pneumonia, unspecified organism[ICD10: J18.9] Diagnosis: Cough[ICD10: R05] Trina Camacho MD, [facility] CPT-4: 87171T 05/09/2016 23905 EST. PATIENT, LEVEL III Diagnosis: Acute laryngopharyngitis[ICD10: J06.0] Diagnosis: Cough[ICD10: R05] Lulu Camacho MD, [facility] CPT-4: 94378 04/28/2016 ([id number]) 11491 EST. P ATIENT, LEVEL III Diagnosis: Cough[ICD10: R05] Diagnosis: Essential (primary) hypertension[ICD10: I10] Susu Camacho MD, [facility] CPT-4: 01028 04/04/2016 ([id number]) 94669 EST. P ATIENT, LEVEL III Diagnosis: Cough[ICD10: R05] Diagnosis: Pneumonia, unspecified organism[ICD10: J18.9] Susu Camacho MD, [facility] CPT-4: 07935 03/28/2016 89693 EST. PATIENT, LEVEL IV Diagnosis: Other allergic rhinitis[ICD10: J30.89] Diagnosis: Other acute sinusitis[ICD10: J01.80] Lulu Camacho MD, [facility] CPT- 4: 26358 02/13/2016 03126 EST. PATIENT, LEVEL IV Diagnosis: Acute bronchitis due to other specified organisms[ICD10: J20.8] Diagnosis: Other acute sinusitis[ICD10: J01.80] Diagnosis: Other allergic rhinitis[ICD10: J30.89] Lulu Camacho MD, [facility] CPT-4: 18736 08/02/2015 ([id number]) 47825 EST. P ATIENT, LEVEL IV Diagnosis: Essential (primary) hypertension[ICD10: I10] Diagnosis: Mixed hyperlipidemia[ICD10: E78.2] Diagnosis: Impaired fasting glucose[ICD10: R73.01] Susu Camacho MD, [facility] CPT-4: 06379 06/22/2015 ([id number]) 47380 EST. P ATIENT, LEVEL IV Diagnosis: ESSENTIAL HYPERTENSION[ICD9: 401.9] Diagnosis: Aortic stenosis[ICD9: 424.1] Diagnosis: Hyperlipidemia[ICD9: 272.4] Trina Camacho MD, [facility] CPT-4: 70658 03/20/2014 ([id number]) OFFICE [facility], [facility] - LEVEL 4 Diagnosis: ESSENTIAL HYPERTENSION[ICD9: 401.9] Diagnosis: DIABETES TYPE II[ICD9: 250.00] Diagnosis: Heart murmur[ICD9: 785.2] Diagnosis: Snoring[ICD9: 786.09] Diagnosis: Sleep-disordered breathing[ICD9: 780.59] Trina Camacho MD, C CPT-4: 61851 03/01/2014 Plan of Care Planned Activity Notes C odes Status Date Visit Plan: Bronchitis - acute case of bronchitis identified. Pt has been given antibiotics, breathing treatments as appropriate, and pt has been instructed to call if symptoms are not improved, or if symptoms acutely worsen. 11/16/2018 Patient Education: Patient Medication Summary Completed 11/16/2018 Visit Plan: UTI-ER follow up -sympt oms have improved -culture positive for E.coli -continue treatment with cefdinir -finish all of abx - increase water intake -decrease tea intake -call if symptoms return or any other concerns. Patient verbalized understanding of plan. 09/02/2018 Appointment: Susu Mills WPtel: [facility]1 [address] (15 min) Moderate 09/02/2018 Patient Education: Patient Medication Summary Completed 09/02/2018 Appointment: Trina Camacho WPtel: [facility]7 [address] (15 min) Moderate 06/23/2018 Visit Plan: [...] any worse 06/21/2018 Appointment: Susu Mills WPtel: [facility] [place] [phone] (30 min) Complex 06/21/2018 Patient Education: Patient [...] allergy spray. 05/14/2018 Appointment: Lulu Mann WPtel: [phone] [facility]66[facility] (15 min) Moderate 05/14/2018 Patient Education: Patient [...] allergy spray. 03/11/2018 Appointment: Lulu Mann WPtel: [facility]5 [facility] (15 min) Moderate 03/11/2018 Patient Education: Patient [...] allergy spray. 02/10/2018 Appointment: Lulu Mann WPtel: [phone] [facility] (15 min) Moderate 02/10/2018 Patient Education: Patient [...] 01/13/2018 Visit Plan: Hypertension - well con koleed - continue with current medications, continue with [...] increased activity 12/23/2017 [facility]ment: [phone] (15 min) Moderate 12/23/2017 Patient Education: Patient Medication Summary Completed 12/23/2017 Appointment: [place] 12/03/2017 Patient Education: Patient Medication Summary Completed [...] inhales bid. 06/24/2017 Appointment: Trina Camacho WPtel: [address] [place], [place] [id number] (15 min) Moderate 06/24/2017 Patient Education: Patient [...] allergy spray. 03/17/2017 Appointment: Lulu Mann WPtel: [facility] (15 min) Moderate 03/17/2017 Patient Education: Patient [...] to medications. 12/24/2016 Appointment: Trina Camacho WPtel: [phone] [facility] (15 min) Moderate 12/24/2016 Patient Education: Patient [...] acutely worsen. 11/18/2016 Appointment: Lulu Mann WPtel: [phone] [facility] (30 min) Complex 11/18/2016 Patient Education: Patient [...] at home. 06/24/2016 Appointment: Trina Camacho WPtel: [phone] [facility] (15 min) Moderate 06/24/2016 Patient Education: Patient [...] nystatin swish and swallow 05/20/2016 Appointment: Trina Camcaho WPtel: [facility]1 [facility] (15 min) Moderate 05/20/2016 Patient Education: Patient Medication Summary Completed 05/20/2016 Patient Education: Obesity Completed 05/20/2016 Patient Education: Hypertension Completed 05/20/2016 Visit Plan: PNEUMONIA - PT IS CLINI WESLY SYMPTOMATIC FOR PNEUMONIA - A CHEST XRAY, SPUTUM C AND S, BLOOD CULTURES, AND LABS HAVE BEEN ORDERED IN ORDER TO FURTHER WORK-UP THE ACUTE ILLNESS. 05/09/2016 Appointment: Susu Mills WPtel: [facility]5 [phone] (15 min) Moderate 05/09/2016 Patient Education: Patient Medication Summary Completed 05/09/2016 Visit Plan: URI - Pt advised to inc rease fluids, vitamin C. Discussed natural and expected course of this diagnosis and need to alert me if symptoms do not follow expected course, or if any worse. RX sent to patient's pharmacy. 04/28/2016 Appointment: Lulu Mnan WPtel: [address] [place], [place] [phone] (15 min) Moderate 04/28/2016 Patient Education: Patient [...] verbalized understanding. 04/04/2016 Appointment: Susu Mills WPtel: [facility]5 [phone] [place] (10 min) Simple 04/04/2016 Patient Education: Patient Medication Summary Completed 04/04/2016 Patient Education: Hypertension Completed 04/04/2016 Visit Plan: Pneumonia-cough- improv ing-finish abx and call if symptoms do not completely resolved-patient verbalized understanding of plan. 03/28/2016 Appointment: Susu Mills WPtel: [facility]5 [phone] [place] (30 min) Complex 03/28/2016 Patient Education: Patient Medication Summary Completed 03/28/2016 Patient Education: Obesity Completed 03/28/2016 Visit Plan: Cough-kenalog injection today-start abx as directed-f/u , sooner if needed 03/24/2016 Appointment: Susu Mills WPtel: [address] [place] [address] (10 min) Simple 03/24/2016 Patient Education: Patient [...] show improvement. 02/13/2016 Appointment: Susu Mills WPtel: [address] [place], [place] [phone] (15 min) Moderate 02/13/2016 Patient Education: Patient [...] allergy spray. 08/02/2015 Appointment: [facility]Ptel[phone] (15 min) Moderate 08/02/2015 Patient Education: [...] Patient Medication Summary Completed 07/31/2014 Patient Education: [facility] - Saving [employer] - Lisinopril - 18+ - Dynamic Portal ID Completed 07/31/2014 Visit Plan: UGS-cvoedved-rrdvd slig htly elevated-patient tolerated lisinopril 5mg BID well, did not tolerate 10mg daily in the past. Recommend he monitor blood pressure and pulse at home and bring in readings for review. Aortic Stenosis-recommend stress test-refer to Dr Avilez for evaluation Hyperlipidemia-continue statin medication-increase exercise and weight loss-low fat diet. Repeat labs in 3-6 months-Patient verbalized understanding of plan. 03/20/2014 Visit Plan: ATT-xqymvmvo-txriy slig htly elevated-patient tolerated lisinopril 5mg BID well, did not tolerate 10mg daily in the past. Recommend he monitor blood pressure and pulse at home and bring in readings for review. Aortic Stenosis-recommend stress test-refer to Dr Avilez for evaluation Hyperlipidemia-continue statin medication-increase exercise and weight loss-low fat diet. Repeat labs in 3-6 months-Patient verbalized understanding of plan. Daytime gblnmwejnaj-mizfdrq-htcapks-refer for sleep study 03/20/2014 Appointment: Follow up 03/20/2014 Patient Education: Patient Medication Summary Completed 03/20/2014 Care Plan: Referral Order SNOMED-CT : [id number] Ordered 03/20/2014 Visit Plan: Hypertension - uncontro [...] labs from his previous physician. 03/01/2014 Appointment: [facility]acho [facility]Ptel: [phone] [place] New Patient 03/01/2014 Patient Education: Patient Medication Summary Completed 03/01/2014 Patient Education: Hypertension Completed 03/01/2014 Referral: Dr Avilez Referral Initiated Instructions Comment . VYA-oneanvrs-bngne slightly elevated-patient tolerated lisinopril 5mg BID well, did not tolerate 10mg daily in the past. Recommend he monitor blood pressure and pulse at home and bring in readings for review. Aortic Stenosis-recommend stress test-refer to Dr Avilez for evaluation Hyperlipidemia-continue statin medication-increase exercise and weight loss-low fat diet. Repeat labs in 3-6 months-Patient verbalized understanding of plan. . TBS-orjdgviw-jklid slightly elevated-patient tolerated lisinopril 5mg BID well, did not tolerate 10mg daily in the past. Recommend he monitor blood pressure and pulse at home and bring in readings for review. Aortic Stenosis-recommend stress test-refer to Dr Avilez for evaluation Hyperlipidemia-continue statin medication-increase exercise and weight loss-low fat diet. Repeat labs in 3-6 months-Patient verbalized understanding of plan. Daytime kzadhjmvoyo-fhguaou-gdnhzmv-refer for sleep study . Sinusitis - Pt has acute infection [...] spray in the nasal steroid allergy spray. GET A TETANUS SHOT DOXYCYCLINE 100MG TWICE [...] do not resolve or if any worse . Allergies - chroni c - recommended [...] Call if symptoms do not show improvement. . Hypertension - wel l controlled - [...] with dietary changes and increased activity . URI - Pt advised t o [...] copy Elevated fasting glucose-check Hgb A1C . Occult blood negat cassy x3. . Occult blood negat cassy x3. . Occult blood negat cassy x3. . Hypertension - wel l controlled - [...] rx for nystatin swish and swallow . PNEUMONIA - PT IS CLINICALLY SYMPTOMATIC FOR PNEUMONIA - A CHEST XRAY, SPUTUM C AND S, BLOOD CULTURES, AND LABS HAVE BEEN ORDERED IN ORDER TO FURTHER WORK-UP THE ACUTE ILLNESS. . UTI-ER follow up - symptoms have improved -culture positive for E.coli -continue treatment with cefdinir -finish all of abx -increase water intake -decrease tea intake -call if symptoms return or any other concerns. Patient verbalized understanding of plan. . Hypertension - wel l controlled - continue with current medications, continue with no added salt diet. Pt has been encouraged to exercise daily. The pt has been advised to call the office if there are any acute concerns about change in blood pressure readings at home. . Sinusitis - Pt has acute infection [...] DOPA paperwork for health care surrogate. . Well Adult - pt wa s [...] - dulera inhaler two inhales bid. . Well Adult - pt wa s [...] - dulera inhaler two inhales bid. . Well Adult - pt wa s [...] to assure normal liver response to medications. . Cough-kenalog inje ction today-start abx as directed-f/u , sooner if needed . Welcome to Medicar e Exam - [...] to maintain independece in the home. . Hypertension - unc ontrolled - the [...] his labs from his previous physician. . Sinusitis - Pt has acute infection [...] spray in the nasal steroid allergy spray. Let me know if you a re not feeling any better and will order breathing treatments. . Bronchitis - acute case of bronchitis identified. Pt has been given antibiotics, steroids as appropriate, and pt has been instructed to call if symptoms are not improved, or if symptoms acutely worsen. Let me know if you a re not feeling any better and will order breathing treatments. . Bronchitis - acute case of bronchitis identified. Pt has been given antibiotics, steroids as appropriate, and pt has been instructed to call if symptoms are not improved, or if symptoms acutely worsen. . URI - Pt advised t o increase fluids, vitamin C. Discussed natural and expected course of this diagnosis and need to alert me if symptoms do not follow expected course, or if any worse. RX sent to patient's pharmacy. . Bronchitis - acute case of bronchitis [...] in the nasal steroid allergy spray. . HTN-no well contro lled-monitor over the weekend and call with readings-call for chest pain, shortness of breath, etc. Patient verbalized understanding of plan. Cough-recent pneumonia-history of tobacco use-symptoms improved-RX for a short course of prednisone sent to patient's pharmacy and instructed on use. Call Thursday with update. Patient verbalized understanding. SYMBICORT TWICE LUIS Y KENALOG TODAY IN THE OFFICE DOXYCYCLINE 100MG TWICE DAILY . Bronchitis - acute case of bronchitis identified. Pt has been given antibiotics, breathing treatments as appropriate, and pt has been instructed to call if symptoms are not improved, or if symptoms acutely worsen. . Pneumonia-cough- i mproving-finish abx and call if symptoms do not completely resolved-patient verbalized understanding of plan.
--- OUTSIDE RECORDS SUMMARY | 2019-03-16 12:31 | XMS REPORT | CCD ---
Author Author Farshad Camacho Organization Trina Camacho MD, [facility] Address [address] [place] [address] Phone Care Team Providers Care Lot Worker Name Role Phone PP Unavailable CCM Unavailable Summary Purpose Interface Exchange Insurance Providers Payer name Policy type / Coverage type Covered republican ID Effective Begin Date Effective End Date WPS Medicare Part B Medicare Part B [id number] Unknown Cigna Medicare Part B 80 [id number] Unknown Family history Brother Diagnosis Age At Onset lung cancer Unknown Alcoholism Unknown Mother Diagnosis Age At Onset Cancer Unknown Pancratic cancer Unknown Arthritis Unknown Father Diagnosis Age At Onset Alcoholism Unknown Social History Social History Element Codes Description Effective Dates Marital status Unknown M alberto Rice 03/01/2014 Number of children Unknown 3 and 3 step 03/01/[address]: 0210574 Former smoker quit 199603/01/2014 Allergies, Adverse Reactions, Alerts Substance Reaction Codes [...] Codes Condition Status Onset Date Resolved Date Urinary tract infect ion, site not specified ICD-9: 599.0 ICD-10: N39.0 Active 09/02/2018 Unknown Cellulitis of right finger ICD-9: 681.00 ICD-10: L03.011 Active 06/21/2018 Unknown Cough ICD-9: 786.2 ICD-10: R05 Active 03/11/2018 Unknown Essential (primary) hypertension ICD-9: 401.9 ICD-10: [...] Condition Codes Effectiv e Dates Condition Status Urinary tract infect ion, site not specified ICD-9: 599.0 ICD-10: N39.0 09/02/2018 Active Cellulitis of right finger ICD-9: 681.00 ICD-10: L03.011 06/21/2018 Active Cough ICD-9: 786.2 ICD-10: R05 03/11/2018 Active Essential (primary) hypertension ICD-9: 401.9 ICD-10: I10 06/21/2018 Active Other allergic rhinitis ICD-9: 477.8 ICD-10: J30.89 02/10/2018 Active Acute laryngopharyng itis ICD-9: 465.0 ICD-10: J06.0 05/14/2018 Active Other acute sinusitis ICD-9: 461.8 ICD-10: J01.80 02/10/2018 Active Encounter for genera l adult medical examination [...] Date Stop Date Sta tus Fill Instructions allopurinol 300 mg t ablet RxNorm: 067192 TAKE 1 TABLET BY MOUT H ONCE DAILY 09/02/2018 No Stop Date Active Kenalog 40 mg/mL russell pension for injection RxNorm: 9709878 Milliliter(s) Inj 06/21/2018 06/21/2018 In active doxycycline hyclate 100 mg tablet RxNorm: 3881005 1 Tablet(s) PO BID 06/21/2018 06/27/2018 Inactive Tamiflu 75 mg capsule RxNorm: 251484 1 Capsule(s) PO BID 05/14/2018 05/18/2018 Inactive Kenalog 40 mg/mL russell pension for injection RxNorm: 9685509 Milliliter(s) Inj 05/14/2018 05/14/2018 In active prednisone 10 mg tablet RxNorm: 959736 Tablet(s) PO UD 03/11/2018 06/20/2018 Inactive 60,50,40,30,20,10 Kenalog 40 mg/mL russell pension for injection RxNorm: 5874006 1 Milliliter(s) Inj 03/11/2018 03/11/2018 In active Keflex 500 mg capsule RxNorm: 959881 1 Capsule(s) PO TID 03/11/2018 03/20/2018 Inactive Symbicort 160 mcg-4. 5 mcg/actuation HFA aerosol inhaler RxNorm: 3859058 2 Puff(s) INH BID 02/10/2018 No Stop Date Active Keflex 500 mg capsule RxNorm: 800204 1 Capsule(s) PO TID 02/10/2018 02/19/2018 Inactive prednisone 10 mg tablet RxNorm: 307362 Tablet(s) PO UD start on 11/1902/10/2018 03/09/2018 Inactive 60,50,40,30,20,10 Advair Diskus 250 mc g-50 mcg/dose powder for inhalation RxNorm: 7673245 1 Puff(s) INH BID 12/29/2017 No Stop Date Active Zithromax Z-Poncho 250 mg tablet RxNorm: 471975 1 Tablet(s) PO UD 12/29/2017 01/02/2018 Inactive bj Dodge Perles 100 mg capsule RxNorm: 372716 1-2 Capsule(s) PO TID as needed 12/29/2017 01/02/2018 In active allopurinol 300 mg t ablet RxNorm: 876937 Tablet(s) TAKE ONE TA BLET BY MOUTH ONCE DAILY 12/10/2017 09/01/2018 Inactive Kenalog 40 mg/mL russell pension for injection RxNorm: 5910098 1.5 Milliliter(s) In j 12/03/2017 12/03/2017 In active allopurinol 300 mg t ablet RxNorm: 758673 TAKE ONE TABLET BY MO UTH ONCE DAILY 09/08/2017 12/09/2017 In active allopurinol 300 mg t ablet RxNorm: 484452 TAKE ONE TABLET BY MO UTH ONCE DAILY 06/15/2017 09/07/2017 In active Keflex 500 mg capsule RxNorm: 055894 1 Capsule(s) PO TID 05/04/2017 05/13/2017 Inactive Kenalog 40 mg/mL russell pension for injection RxNorm: 7088798 1 Milliliter(s) Inj 03/17/2017 03/17/2017 In active Keflex 500 mg capsule RxNorm: 331658 1 Capsule(s) PO TID 03/13/2017 03/12/2017 Inactive Keflex 500 mg capsule RxNorm: 895759 1 Capsule(s) PO TID 03/13/2017 03/22/2017 Inactive prednisone 10 mg tablet RxNorm: 662776 Tablet(s) PO UD start on 11/1911/18/2016 12/23/2016 Inactive 60,50,40,30,20,10 Advair Diskus 250 mc g-50 mcg/dose powder for inhalation RxNorm: 1687838 1 Puff(s) INH BID 11/18/2016 12/28/2017 Inactive doxycycline hyclate 100 mg capsule RxNorm: 3885090 1 Capsule(s) PO BID 11/18/2016 11/27/2016 In active Kenalog 40 mg/mL russell pension for injection RxNorm: 9372277 Milliliter(s) Inj 11/18/2016 11/18/2016 In active nystatin 100,000 uni t/mL oral suspension RxNorm: 006417 5 Milliliter(s) PO QI D 05/20/2016 05/29/2016 In active allopurinol 300 mg t ablet RxNorm: 926578 TAKE ONE TABLET BY [facility] ONCE DAILY 05/11/2016 05/05/2017 In active Tessalon Perles 100 mg capsule RxNorm: 277802 1-2 Capsule(s) PO TID as needed 04/29/2016 05/03/2016 In active Prilosec OTC 20 mg t ablet,delayed release RxNorm: 094233 Tablet(s) PO 04/28/2016 11/16/2016 In active doxycycline hyclate 100 mg capsule RxNorm: 4356042 1 Capsule(s) PO BID 04/28/2016 05/07/2016 In active Tamiflu 75 mg capsule RxNorm: 929361 1 Capsule(s) PO BID 04/07/2016 04/11/2016 Inactive Tamiflu 75 mg capsule RxNorm: 904054 1 Capsule(s) PO BID 04/07/2016 04/06/2016 Inactive prednisone 20 mg tablet RxNorm: 915228 1 Tablet(s) PO BID 04/04/2016 04/08/2016 Inactive Kenalog 40 mg/mL russell pension for injection RxNorm: 3580322 1 Milliliter(s) Inj 03/24/2016 03/24/2016 In active cefdinir 300 mg capsule RxNorm: 177405 1 Capsule(s) PO BID 03/24/2016 03/30/2016 Inactive Zithromax Z-Poncho 250 mg tablet RxNorm: 070677 1 Tablet(s) PO UD 03/24/2016 03/28/2016 Inactive zpack cefdinir 300 mg capsule RxNorm: 320002 1 Capsule(s) PO BID 03/24/2016 03/23/2016 Inactive Flonase Allergy Reli ef 50 mcg/actuation nasal spray,suspension RxNorm: 3401477 1 [place] NASAL BID 02/13/2016 No Stop Date Active doxycycline hyclate 100 mg capsule RxNorm: 0893417 1 Capsule(s) PO BID 02/13/2016 02/19/2016 In active lisinopril 5 mg tablet RxNorm: 248676 1 Tablet(s) PO BID TAKE ONE TABLET BY MO [facility] TWICE DAILY 11/20/2015 05/12/2016 Inactive hold until patient calls fo r refill doxycycline hyclate 100 mg capsule RxNorm: 4185636 1 Capsule(s) PO BID 08/02/2015 08/08/2015 In active Kenalog 40 mg/mL russell pension for injection RxNorm: 2156329 Milliliter(s) Inj 08/02/2015 08/02/2015 In active lisinopril 5 mg tablet RxNorm: 987866 TAKE ONE TABLET BY MOUTH TWICE DAILY 06/11/2015 11/19/2015 In active allopurinol 300 mg t ablet RxNorm: 967401 1 Tablet(s) PO daily 05/08/2015 05/01/2016 Inactive lisinopril 5 mg tablet RxNorm: 904839 1 Tablet(s) PO BID 01/30/2015 05/29/2015 Inactive [AttnRPh: Saving apply/adjudicate RxGRP:SG20 RxBIN:[id number] RxPCN: ID#:[id number]] Zithromax Z-Poncho 250 mg tablet RxNorm: 380776 1 Tablet(s) PO UD 01/10/2015 03/23/2016 Inactive zpack allopurinol 300 mg t ablet RxNorm: 242084 1 Tablet(s) PO daily 10/31/2014 04/28/2015 Inactive lisinopril 5 mg tablet RxNorm: 485305 1 Tablet(s) PO BID 07/31/2014 11/27/2014 Inactive [AttnRPh: Saving apply/adjudicate RxGRP:SG20 RxBIN:[id number] RxPCN: ID#:[id number]] allopurinol 300 mg t ablet RxNorm: 627822 1 Tablet(s) PO daily 05/17/2014 10/30/2014 Inactive lisinopril 5 mg tablet RxNorm: 427534 1 Tablet(s) PO BID 03/01/2014 06/28/2014 Inactive [SAVINGS FOR UNINSURED PATIENTS -- BIN:[id number], PCN: [id number], Group: [id number], ID# [id number], Process claim through [email or web address], for questions: . THIS IS NOT INSURANCE.] Fish Oil 1,000 mg ca psule RxNorm: 3 Capsule(s) PO daily No Start Date Active B Complex 1 oral RxNorm: 41758 oral No Start Date Active Vitamin D3 1,000 uni t capsule RxNorm: 237971 2 Capsule(s) PO daily No Start Date Active Zyrtec 10 mg capsule RxNorm: 6487894 1 Capsule(s) PO daily No Start Date Active fenofibrate nanocrys tallized 48 mg tablet RxNorm: 066231 1 Tablet(s) PO daily No Start Date Active metoprolol tartrate 25 mg tablet RxNorm: 825620 1 Tablet(s) PO daily No Start Date Active multivitamin tablet RxNorm: 1 Tablet(s) PO daily No Start Date Active pravastatin 40 mg ta blet RxNorm: 584253 1 Tablet(s) PO daily No Start Date Active Tessalon Perles 100 mg capsule RxNorm: 554918 1-2 Capsule(s) PO TID as needed No Start Date 04/28/2016 Inactive allopurinol 300 mg t ablet RxNorm: 766921 1 Tablet(s) PO daily No Start Date 05/16/2014 Inactive metformin 500 mg tablet RxNorm: 860602 1 Tablet(s) PO BID No Start Date 02/14/2014 Inactive pioglitazone 15 mg t ablet RxNorm: 757915 1 Tablet(s) PO daily No Start Date 07/30/2014 Inactive lisinopril 5 mg tablet RxNorm: 955359 1 Tablet(s) PO daily No Start Date 02/28/2014 Inactive losartan 25 mg tablet RxNorm: 413223 1/2 Tablet(s) PO daily No Start Date 01/12/2018 Inactive Zithromax Z-Poncho 250 mg tablet RxNorm: 043000 1 Tablet(s) PO UD No Start Date 01/09/2015 Inactive bj Medication Administered Medication Codes Instruc tions Start Date Status Kenalog 40 mg/mL suspension for injection RxNorm: 6242439 Milliliter 06/21/2018 No longer Active Kenalog 40 mg/mL suspension for injection RxNorm: 4413249 Milliliter 05/14/2018 No longer Active Kenalog 40 mg/mL suspension for injection RxNorm: 0587871 1Milliliter 03/11/2018 N o longer Active Kenalog 40 mg/mL suspension for injection RxNorm: 9383374 1.5Milliliter 12/03/2017 No longer Active Kenalog 40 mg/mL suspension for injection RxNorm: 1582391 1Milliliter 03/17/2017 N o longer Active Kenalog 40 mg/mL suspension for injection RxNorm: 9244505 Milliliter 11/18/2016 No longer Active Kenalog 40 mg/mL suspension for injection RxNorm: 6844131 1Milliliter 03/24/2016 N o longer Active Kenalog 40 mg/mL suspension for injection RxNorm: 1103504 Milliliter 08/02/2015 No longer Active Immunizations Vaccine Codes Date Status Influenza CVX: 141 12/18 completed Influenza CVX: 141 12/14 completed Pneumococcal CVX: 33 03/2012 completed Zoster CVX: 121 11/15/19 13 completed Assessments Condition Codes Effectiv e Dates Urinary tract infection, site not specified ICD-10: N39.0 ICD-9: 599.0 09/02/2018 Other allergic rhinitis ICD-10: J30. 89 ICD-9: 477.8 06/21/2018 Cellulitis of right finger ICD-10: L 03.011 ICD-9: 681.00 06/21/2018 Cough ICD-10: R05 ICD-9: 786.2 06/21/2018 Essential (primary) hypertension ICD -10: I10 [...] Visit Reason For Visit Effective Dates Notes Hospital Follow Up 09/02/2018 cough 06/21/2018 cough [...] Item Item Code Result Date Comp Metabolic Kyx175 NA 138 mEq/L 06/22/2018 Comp Metabolic Ixd189 K 4.3 mEq/L 06/22/2018 Comp Metabolic Jem021 CL 102 mEq/L 06/22/2018 Comp Metabolic Fpw857 CO2 29.0 mEq/L 06/22/2018 Comp Metabolic Bgo504 AN ION GAP 11 06/22/2018 Comp Metabolic Faw617 GL UCOSE 89 mg/dL 06/22/2018 Comp Metabolic Eln408 Cr eat 1.3 mg/dL 06/22/2018 Comp Metabolic Zpk808 eG FR 59 ml/min/1.73m2 06/22 Comp Metabolic Vmr957 BUN 21 mg/dL 06/22/2018 Comp Metabolic Cbp258 B/ C Ratio 16.4 Ratio 06/22/2018 Comp Metabolic Abm057 CA LCIUM 8.8 mg/dL 06/22/2018 Comp Metabolic Han338 AL K PHOS 70 U/L 06/22/2018 Comp Metabolic Jwb476 T(SGOT) 26 U/L 06/22/2018 Comp Metabolic Lqj788 AL T(SGPT) 21 U/L 06/22/2018 Comp Metabolic Mpg756 BI LI T 0.6 mg/dL 06/22/2018 Comp Metabolic Jqu951 AL BUMIN 3.9 g/dL 06/22/2018 Comp Metabolic Seq853 TP RO 6.7 g/dL 06/22/2018 Comp Metabolic Hir412 GL OB 2.8 g/dL 06/22/2018 Comp Metabolic Gbh079 A/ G Ratio 1.4 Ratio 06/22/2018 Comp Metabolic Ajx307 Os mo 278 mOsmo 06/22/2018 Cbc With [...] 32.7 pg 06/22/2018 Cbc With Differential Ord2 [place]% 11.0 % 06/22/2018 Cbc With Differential Ord2 [...] 1.49 K/ul 06/22/2018 Cbc With Differential Ord2 [place] ABS# 0.8 K/ul 06/22/2018 Cbc With Differential Ord2 Eos ABS# 0.2 K/ul 06/22/2018 Cbc With Differential Ord2 Baso ABS# 0.0 K/ul 06/22/2018 Lipid Ord30 CHOL 161 mg/dL 06/09/2018 Lipid Ord30 HDL 41.0 mg/dl 06/09/2018 Lipid Ord30 TRIG 122 mg/dL 06/09/2018 Lipid Ord30 LDL 96 mg/dL 06/09/2018 Lipid Ord30 C/HDL 3.9 Ratio 06/09/2018 Comp Metabolic Dfx155 NA 141 mEq/L 06/09/2018 Comp Metabolic Cyh285 K 4.4 mEq/L 06/09/2018 Comp Metabolic Glw465 CL 105 mEq/L 06/09/2018 Comp Metabolic Dnm498 CO2 27.0 mEq/L 06/09/2018 Comp Metabolic Fqn823 AN ION GAP 13 06/09/2018 Comp Metabolic Dyb549 GL UCOSE 118 mg/dL 06/09/2018 Comp Metabolic Tmh039 Cr eat 1.4 mg/dL 06/09/2018 Comp Metabolic Tqp145 eG FR 54 ml/min/1.73m2 06/09 Comp Metabolic Pcm695 BUN 15 mg/dL 06/09/2018 Comp Metabolic Wvt313 B/ C Ratio 10.8 Ratio 06/09/2018 Comp Metabolic Czi212 CA LCIUM 9.0 mg/dL 06/09/2018 Comp Metabolic Peq351 AL K PHOS 77 U/L 06/09/2018 Comp Metabolic Ahz666 T(SGOT) 24 U/L 06/09/2018 Comp Metabolic Bch108 AL T(SGPT) 32 U/L 06/09/2018 Comp Metabolic Hli217 BI LI T 0.6 mg/dL 06/09/2018 Comp Metabolic Crv859 AL BUMIN 4.0 g/dL 06/09/2018 Comp Metabolic Uhz934 TP RO 6.9 g/dL 06/09/2018 Comp Metabolic Mzp842 GL OB 3.0 g/dL 06/09/2018 Comp Metabolic Zdt546 A/ G Ratio 1.3 Ratio 06/09/2018 Comp Metabolic Zhu064 Os mo 283 mOsmo 06/09/2018 Comp Metabolic Vaa817 NA 136 mEq/L 12/22/2017 Comp Metabolic Nhp319 K 4.2 mEq/L 12/22/2017 Comp Metabolic Jld770 CL 105 mEq/L 12/22/2017 Comp Metabolic Xlr888 CO2 30.0 mEq/L 12/22/2017 Comp Metabolic Kpq706 AN ION GAP 5 12/22/2017 Comp Metabolic Yoi829 GL UCOSE 85 mg/dL 12/22/2017 Comp Metabolic Rjg117 Cr eat 1.2 mg/dL 12/22/2017 Comp Metabolic Dti008 eG FR 62 ml/min/1.73m2 12/22 Comp Metabolic Uxu021 BUN 17 mg/dL 12/22/2017 Comp Metabolic Skx298 B/ C Ratio 13.9 Ratio 12/22/2017 Comp Metabolic Pny412 CA LCIUM 9.3 mg/dL 12/22/2017 Comp Metabolic Lpm382 AL K PHOS 78 U/L 12/22/2017 Comp Metabolic Jvh310 T(SGOT) 24 U/L 12/22/2017 Comp Metabolic Ifp722 AL T(SGPT) 28 U/L 12/22/2017 Comp Metabolic Led533 BI LI T 0.5 mg/dL 12/22/2017 Comp Metabolic Mts495 AL BUMIN 4.0 g/dL 12/22/2017 Comp Metabolic Swa669 TP RO 6.6 g/dL 12/22/2017 Comp Metabolic Ash524 GL OB 2.6 g/dL 12/22/2017 Comp Metabolic Qaz748 A/ G Ratio 1.6 Ratio 12/22/2017 Comp Metabolic Faa701 Os mo 273 mOsmo 12/22/2017 Cbc With [...] 31.9 pg 12/22/2017 Cbc With Differential Ord2 [place]% 6.3 % 12/22/2017 Cbc With Differential Ord2 [...] 1.92 K/ul 12/22/2017 Cbc With Differential Ord2 [place] ABS# 0.6 K/ul 12/22/2017 Cbc With Differential Ord2 Eos ABS# 0.3 K/ul 12/22/2017 Cbc With Differential Ord2 Baso ABS# 0.0 K/ul 12/22/2017 Comp Metabolic Kbv927 NA 135 mEq/L 06/22/2017 Comp Metabolic Als896 K 4.2 mEq/L 06/22/2017 Comp Metabolic Kbj322 CL 101 mEq/L 06/22/2017 Comp Metabolic Syd213 CO2 27.0 mEq/L 06/22/2017 Comp Metabolic Hqf469 AN ION GAP 11 06/22/2017 Comp Metabolic Naj778 GL UCOSE 89 mg/dL 06/22/2017 Comp Metabolic Kms662 Cr eat 1.5 mg/dL 06/22/2017 Comp Metabolic Uyg996 eG FR 51 ml/min/1.73m2 06/22 Comp Metabolic Qxj606 BUN 16 mg/dL 06/22/2017 Comp Metabolic Agy084 B/ C Ratio 11.0 Ratio 06/22/2017 Comp Metabolic Duv042 CA LCIUM 8.9 mg/dL 06/22/2017 Comp Metabolic Cvn168 AL K PHOS 79 U/L 06/22/2017 Comp Metabolic Twj095 T(SGOT) 26 U/L 06/22/2017 Comp Metabolic Hyj803 AL T(SGPT) 26 U/L 06/22/2017 Comp Metabolic Mwh097 BI LI T 0.4 mg/dL 06/22/2017 Comp Metabolic Quy497 AL BUMIN 4.1 g/dL 06/22/2017 Comp Metabolic Cvp189 TP RO 6.9 g/dL 06/22/2017 Comp Metabolic Mxf243 GL OB 2.8 g/dL 06/22/2017 Comp Metabolic Gdz437 A/ G Ratio 1.5 Ratio 06/22/2017 Comp Metabolic Qcm073 Os mo 271 mOsmo 06/22/2017 Cbc With [...] 32.6 pg 06/22/2017 Cbc With Differential Ord2 [place]% 7.9 % 06/22/2017 Cbc With Differential Ord2 [...] 2.14 K/ul 06/22/2017 Cbc With Differential Ord2 [place] ABS# 0.8 K/ul 06/22/2017 Cbc With Differential [...] 33.2 pg 12/25/2015 Cbc With Differential Ord2 [place]% 7.6 % 12/25/2015 Cbc With Differential Ord2 [...] 1.86 K/ul 12/25/2015 Cbc With Differential Ord2 [place] ABS# 0.6 K/ul 12/25/2015 Cbc With Differential Ord2 Eos ABS# 0.2 K/ul 12/25/2015 Cbc With Differential Ord2 Baso ABS# 0.1 K/ul 12/25/2015 Comp Metabolic Njv224 NA 136 mEq/L 12/25/2015 Comp Metabolic Xfh760 K 4.2 mEq/L 12/25/2015 Comp Metabolic Tqv049 CL 104 mEq/L 12/25/2015 Comp Metabolic Mbz558 CO2 26.0 mEq/L 12/25/2015 Comp Metabolic Gpe693 AN ION GAP 10 12/25/2015 Comp Metabolic Bbg536 GL UCOSE 104 mg/dL 12/25/2015 Comp Metabolic Evl581 Cr eat 1.3 mg/dL 12/25/2015 Comp Metabolic Dbh053 eG FR 59 ml/min/1.73m2 12/24 Comp Metabolic Smg661 BUN 23 mg/dL 12/25/2015 Comp Metabolic Hha182 B/ C Ratio 18.0 Ratio 12/25/2015 Comp Metabolic Sbl900 CA LCIUM 9.1 mg/dL 12/25/2015 Comp Metabolic Bvt948 AL K PHOS 76 U/L 12/25/2015 Comp Metabolic Xqc327 T(SGOT) 30 U/L 12/25/2015 Comp Metabolic Jap972 AL T(SGPT) 28 U/L 12/25/2015 Comp Metabolic Mok163 BI LI T 0.3 mg/dL 12/25/2015 Comp Metabolic Upz577 AL BUMIN 4.0 g/dL 12/25/2015 Comp Metabolic Dtz962 TP RO 6.6 g/dL 12/25/2015 Comp Metabolic Gxh901 GL OB 2.6 g/dL 12/25/2015 Comp Metabolic Kkt121 A/ G Ratio 1.5 Ratio 12/25/2015 Comp Metabolic Byu287 Os mo 276 mOsmo 12/25/2015 Cbc With [...] 32.4 pg 06/25/2015 Cbc With Differential Ord2 [place]% 7.1 % 06/25/2015 Cbc With Differential Ord2 [...] 2.18 K/ul 06/25/2015 Cbc With Differential Ord2 [place] ABS# 0.7 K/ul 06/25/2015 Cbc With Differential Ord2 Eos ABS# 0.2 K/ul 06/25/2015 Cbc With Differential Ord2 Baso ABS# 0.0 K/ul 06/25/2015 Cbc With Differential Ord2 New Analyzer Notice Please note new ref ranges s tarting 03-28-2015 due to implemntation of new five part differential hematolgy analyzer. 06/25/2015 %Hba1C Xse562 % HbA1c 97479-1 6.1 % 06/25/2015 %Hba1C Zxa587 Gluc Ave 128 mg/dL 06/25/2015 Comp Metabolic Via097 NA 135 mEq/L 06/25/2015 Comp Metabolic Sqn409 K 4.3 mEq/L 06/25/2015 Comp Metabolic Qny681 CL 102 mEq/L 06/25/2015 Comp Metabolic Dur230 CO2 26.0 mEq/L 06/25/2015 Comp Metabolic Qzr142 AN ION GAP 11 06/25/2015 Comp Metabolic Uol723 GL UCOSE 81 mg/dL 06/25/2015 Comp Metabolic Gxt478 Cr eat 1.5 mg/dL 06/25/2015 Comp Metabolic Bqz248 eG FR 49 ml/min/1.73m2 06/24 Comp Metabolic Wzi818 BUN 20 mg/dL 06/25/2015 Comp Metabolic Pfn773 B/ C Ratio 13.2 Ratio 06/25/2015 Comp Metabolic Ven298 CA LCIUM 9.5 mg/dL 06/25/2015 Comp Metabolic Jlq738 AL K PHOS 65 U/L 06/25/2015 Comp Metabolic Pgs673 T(SGOT) 25 U/L 06/25/2015 Comp Metabolic Kgq993 AL T(SGPT) 29 U/L 06/25/2015 Comp Metabolic Fif369 BI LI T 0.4 mg/dL 06/25/2015 Comp Metabolic Sby187 AL BUMIN 4.4 g/dL 06/25/2015 Comp Metabolic Dxz133 TP RO 7.3 g/dL 06/25/2015 Comp Metabolic Ncq224 GL OB 3.0 g/dL 06/25/2015 Comp Metabolic Dli175 A/ G Ratio 1.5 Ratio 06/25/2015 Comp Metabolic Fum541 Os mo 272 mOsmo 06/25/2015 Tsh Ord6 hTSH II 3.03 uIU/mL 06/25/2015 Lipid Ord30 CHOL 150 mg/dL 06/22/2015 Lipid Ord30 HDL 34.0 mg/dl 06/22/2015 Lipid Ord30 TRIG 149 mg/dL 06/22/2015 Lipid Ord30 LDL 86 mg/dL 06/22/2015 Lipid Ord30 C/HDL 4.4 Ratio 06/22/2015 Hepatic Tjs406 ALBUMIN 4.3 g/dL 06/22/2015 Hepatic Ohi306 TPRO 7.0 g/dL 06/22/2015 Hepatic Hwj171 GLOB 2.8 g/dL 06/22/2015 Hepatic Bny410 A/G Ratio 1.5 Ratio 06/22/2015 Hepatic Vlr323 ALK PHOS 65 U/L 06/22/2015 Hepatic Yvd572 ALT(SGPT) 33 U/L 06/22/2015 Hepatic Oqs264 AST(SGOT) 28 U/L 06/22/2015 Hepatic Xxd288 BILI T 0.5 mg/dL 06/22/2015 Hepatic Ijt654 BILI D 0.1 mg/dL 06/22/2015 Hepatic Bir818 BILI I 0.4 mg/dL 06/22/2015 Review of Systems System Result Effective Dates Constitutional No recent illness 09/02/2018 Constitutional No [...] Respiratory No pedal edema 03/20/2014 Respiratory snoring 01/0 07/2014 Respiratory No wheezing 03/20/2014 Gastrointestinal No [...] clear 06/21/2018 None Full Exam - General 1995 Ears/Nose/Throat otoscopic exam Tympanic membrane: retraction pocket [...] lips 03/01/2014 None Full Exam - General 1995 Ears/Nose/Throat lips/teeth/gingiva Overall: normal dentition 03/01/2014 None [...] CPT-4: J3301 06/21/2018 THER/PROPH/DIAG INJ SC/IM CPT-4: 84271 05/14/2018 TRIAMCINOLONE ACET I [place] NOS CPT-4: J3301 05/14/2018 TRIAMCINOLONE ACET I [place] NOS CPT-4: J3301 03/11/2018 THER/PROPH/DIAG INJ SC/IM CPT-4: 02059 03/11/2018 PPPS, SUBSEQ VISIT CPT- 4: G0439 01/13/2018 TRIAMCINOLONE ACET I [place] NOS CPT-4: J3301 12/03/2017 THER/PROPH/DIAG INJ SC/IM CPT-4: 13967 12/03/2017 TRIAMCINOLONE ACET I [place] NOS CPT-4: J3301 06/24/2017 TRIAMCINOLONE ACET I [place] NOS CPT-4: J3301 03/17/2017 TRIAMCINOLONE ACET I [place] NOS CPT-4: J3301 11/18/2016 TRIAMCINOLONE ACET I [place] NOS CPT-4: J3301 03/24/2016 THER/PROPH/DIAG INJ SC/IM CPT-4: 21770 03/24/2016 TRIAMCINOLONE ACET I [place] NOS CPT-4: J3301 08/02/2015 OCCULT BLOOD FECES CPT- 4: 69368 08/03/2014 INITIAL PREVENTIVE EXAM CPT-4: G0402 07/31/2014 Vital Signs Date Vital 09/02/2018 Blood Pressure 1: 146/80 Code: 8480-6 BMI: 37.4 Code: 61170-5 Heart Rate 1: 58 bpm Height: 5'10" SpO2: 97% Weight: 261 lbs 06/21/2018 Blood Pressure 1: 130/80 Code: 8480-6 Heart Rate 1: 94 bpm Height: 5'10" SpO2: 95% Weight: 05/14/2018 Blood Pressure 1: 144/84 Code: 8480-6 Heart Rate 1: 70 bpm Height: SpO2: 95% Weight: 03/11/2018 Blood Pressure 1: 134/76 Code: 8480-6 BMI: 35.7 Code: 48887-5 Heart Rate 1: 60 bpm Height: 5'10" SpO2: 96% Weight: 249 lbs 02/10/2018 Blood Pressure 1: 140/72 Code: 8480-6 BMI: 33.7 Code: 29893-8 Heart Rate 1: 48 bpm Height: 5'10" SpO2: 95% Temperature: 36.6 (C ) / 97.8 (F) Weight: 235 lbs 01/13/2018 Blood Pressure 1: 118/66 Code: 8480-6 BMI: 33.3 Code: 34613-0 Heart Rate 1: 57 bpm Height: 5'10" SpO2: 98% Waist Measure (cm): 97 cm Weight: 232 lbs 12/23/2017 Blood Pressure 1: 120/62 Code: 8480-6 BMI: 33.7 Code: 31009-8 Heart Rate 1: 58 bpm Height: 5'10" SpO2: 96% Weight: 235 lbs 06/24/2017 Blood Pressure 1: 136/74 Code: 8480-6 BMI: 38.7 Code: 61935-2 Heart Rate 1: 75 bpm Height: 5'10" SpO2: 98% Weight: 270 lbs 03/17/2017 Blood Pressure 1: 138/78 Code: 8480-6 Heart Rate 1: 65 bpm SpO2: 97% Temperature: 36.6 (C ) / 97.8 (F) 12/24/2016 Blood Pressure 1: 134/78 Code: 8480-6 BMI: 37.2 Code: 80861-5 Heart Rate 1: 56 bpm Height: 5'10" SpO2: 98% Weight: 259 lbs 11/18/2016 Blood Pressure 1: 130/72 Code: 8480-6 BMI: 37.3 Code: 49604-4 Heart Rate 1: 70 bpm Height: 5'10" SpO2: 95% Weight: 260 lbs 06/24/2016 Blood Pressure 1: 134 Code: 8480-6 BMI: 38.3 Code: 37518-0 Heart Rate 1: 66 bpm Height: 5'10" SpO2: 98% Weight: 267 lbs 05/20/2016 Blood Pressure 1: 138/82 Code: 8480-6 BMI: 37.4 Code: 78049-8 Heart Rate 1: 65 bpm Height: 5'10" SpO2: 100% Weight: 261 lbs 05/09/2016 Blood Pressure 1: 154/78 Code: 8480-6 Heart Rate 1: 82 bpm Height: SpO2: 89% Temperature: 36.2 (C ) / 97.2 (F) Weight: 04/28/2016 Blood Pressure 1: 112/62 Code: 8480-6 BMI: 37.9 Code: 51903-6 Heart Rate 1: 73 bpm Height: 5'10" SpO2: 94% Temperature: 37.2 (C ) / 98.9 (F) Weight: 264 lbs 04/04/2016 Blood Pressure 1: 150/86 Code: 8480-6 Blood Pressure 1: 148/86 Code: 8480-6 Heart Rate 1: 71 bpm SpO2: 93% SpO2: 95% Temperature: 37.2 (C ) / 99.0 (F) 03/28/2016 Blood Pressure 1: 156/74 Code: 8480-6 BMI: 38.0 Code: 08001-7 Heart Rate 1: 84 bpm Height: 5'10" SpO2: 95% Weight: 265 lbs 02/13/2016 Blood Pressure 1: 118/62 Code: 8480-6 BMI: 39.2 Code: 41999-7 Heart Rate 1: 65 bpm Height: 5'10" SpO2: 96% Weight: 273 lbs 08/02/2015 Blood Pressure 1: 150/82 Code: 8480-6 BMI: 38.3 Code: 36913-7 Heart Rate 1: 75 bpm Height: 5'10" SpO2: 93% Weight: 267 lbs 06/22/2015 Blood Pressure 1: 138/80 Code: 8480-6 BMI: 38.7 Code: 82210-2 Heart Rate 1: 76 bpm Height: 5'10" SpO2: 96% Weight: 270 lbs 07/31/2014 Blood Pressure 1: 138/70 Code: 8480-6 BMI: 37.7 Code: 29909-3 Heart Rate 1: 70 bpm Height: 5'10" Respiratory Rate: 20 bpm Weight: 263 lbs 03/20/2014 Blood Pressure 1: 142/80 Code: 8480-6 BMI: 37.7 Code: 15377-2 Heart Rate 1: 64 bpm Height: 5'10" Weight: 263 lbs 03/01/2014 Blood Pressure 1: 150/90 Code: 8480-6 Blood Pressure 2: 140/80 Code: 8480-6 BMI: 37.3 Code: 85786-4 Heart Rate 1: 56 bpm Height: 5'10" Weight: 260 lbs Functional Status No Functional Status data History of Present Illness Symptom Name Status Resu lt Effective Date Notes _ infection 09/02/2018 -UTI Quality acute illness [...] outdoors: n 01/13/2018 None hypertension Quality main vale hypertension 12/23/2017 None hypertension Onset and Resolution [...] Denies edema 12/24/2016 None hypertension Quality main akanksha hypertension 12/24/2016 None sinus congestion Location frontal [...] resolved 05/20/2016 None cough Location in the th roat 05/09/2016 None cough Quality constant 05/09/2016 [...] Encounters Encounter Performer Loca tion Codes Date ([id number]) 42420 EST. P ATIENT, LEVEL III Diagnosis: Urinary tract infection, site not specified[ICD10: N39.0] Susu Camacho MD, [facility] CPT-4: 82471 09/02/2018 ([id number] 56139 EST. P ATIENT, LEVEL III Diagnosis: Essential (primary) hypertension[ICD10: I10] Diagnosis: Cough[ICD10: R05] Diagnosis: Cellulitis of right finger[ICD10: L03.011] Diagnosis: Other allergic rhinitis[ICD10: J30.89] [facility] CPT-4: 30086 06/21/2018 [id number] EST. PATIENT, LEVEL III Diagnosis: Acute laryngopharyngitis[ICD10: J06.0] Diagnosis: Other allergic rhinitis[ICD10: J30.89] Diagnosis: Cough[ICD10: R05] [facility] CPT-4: 41868 05/14/2018 40196 EST. PATIENT, LEVEL IV Diagnosis: Other acute sinusitis[ICD10: J01.80] Diagnosis: Other allergic rhinitis[ICD10: J30.89] Diagnosis: Cough[ICD10: R05] Lulu Camacho MD, [facility] CPT-4: 45850 03/11/2018 00651 EST. PATIENT, LEVEL IV Diagnosis: Other acute sinusitis[ICD10: J01.80] Diagnosis: Other allergic rhinitis[ICD10: J30.89] Lulu Camacho MD, [facility] CPT-4: 38340 02/10/2018 ([id number]) 71234 EST. P ATIENT, LEVEL IV Diagnosis: Essential (primary) hypertension[ICD10: I10] Diagnosis: Mixed hyperlipidemia[ICD10: E78.2] Diagnosis: Nonrheumatic aortic (valve) stenosis[ICD10: I35.0] Trina Camacho MD, [facility] CPT-4: 50511 12/23/2017 ([id number]) PER PM REEVA L EST PAT 65+ YR Diagnosis: Encounter for general adult medical examination with abnormal findings[ICD10: Z00.01] Trina Camacho MD, [facility] CPT-4: 74991 06/24/2017 ([id number]) Patient adm itted to the hospital from clinic (NO CHARGE) Diagnosis: [ICD9: ] Diagnosis: Essential (primary) hypertension[ICD10: I10] Diagnosis: Other allergic rhinitis[ICD10: J30.89] Diagnosis: Cough[ICD10: R05] Diagnosis: Mixed hyperlipidemia[ICD10: E78.2] Trina Camacho MD, [facility] CPT- 4: 73363V 06/24/2017 32476 EST. PATIENT, LEVEL IV Diagnosis: Other acute sinusitis[ICD10: J01.80] Diagnosis: Other allergic rhinitis[ICD10: J30.89] Lulu Camacho MD, [facility] CPT-4: 30699 03/17/2017 ([id number]) 25410 EST. P ATIENT, LEVEL IV Diagnosis: Essential (primary) hypertension[ICD10: I10] Diagnosis: Mixed hyperlipidemia[ICD10: E78.2] Trina Camacho MD, [facility] CPT- 4: 48436 12/24/2016 73318 EST. PATIENT, LEVEL IV Diagnosis: Acute bronchitis due to other specified organisms[ICD10: J20.8] Lulu Camacho MD, [facility] CPT-4: 73342 11/18/2016 ([id number]) 39341 EST. P ATIENT, LEVEL III Diagnosis: Essential (primary) hypertension[ICD10: I10] Trina Camacho MD, [facility] CPT-4: 71698 06/24/2016 ([id number]) 71552 EST. P ATIENT, LEVEL III Diagnosis: Essential (primary) hypertension[ICD10: I10] Diagnosis: Cough[ICD10: R05] Diagnosis: Candidal stomatitis[ICD10: B37.0] Trina Camacho MD, [facility] CPT-4: 25745 05/20/2016 ([id number]) Patient adm itted to the hospital from clinic (NO CHARGE) Diagnosis: Pneumonia, unspecified organism[ICD10: J18.9] Diagnosis: Cough[ICD10: R05] Trina Camacho MD, [facility] CPT-4: 66216M 05/09/2016 70593 EST. PATIENT, LEVEL III Diagnosis: Acute laryngopharyngitis[ICD10: J06.0] Diagnosis: Cough[ICD10: R05] Lulu Camacho MD, [facility] CPT-4: 94583 04/28/2016 ([id number]) 45523 EST. P ATIENT, LEVEL III Diagnosis: Cough[ICD10: R05] Diagnosis: Essential (primary) hypertension[ICD10: I10] Susu Camacho MD, [facility] CPT-4: 50317 04/04/2016 ([id number]) 95265 EST. P ATIENT, LEVEL III Diagnosis: Cough[ICD10: R05] Diagnosis: Pneumonia, unspecified organism[ICD10: J18.9] Susu Camacho MD, [facility] CPT-4: 14746 03/28/2016 64234 EST. PATIENT, LEVEL IV Diagnosis: Other allergic rhinitis[ICD10: J30.89] Diagnosis: Other acute sinusitis[ICD10: J01.80] [facility] CPT- 4: 84998 02/13/2016 04938 EST. PATIENT, LEVEL IV Diagnosis: Acute bronchitis due to other specified organisms[ICD10: J20.8] Diagnosis: Other acute sinusitis[ICD10: J01.80] Diagnosis: Other allergic rhinitis[ICD10: J30.89] Lulu Camacho MD, [facility] CPT-4: 13055 08/02/2015 ([id number]) 83741 EST. P ATIENT, LEVEL IV Diagnosis: Essential (primary) hypertension[ICD10: I10] Diagnosis: Mixed hyperlipidemia[ICD10: E78.2] Diagnosis: Impaired fasting glucose[ICD10: R73.01] Susu Camacho MD, [facility] CPT-4: 56338 06/22/2015 ([id number]) 34254 EST. P ATIENT, LEVEL IV Diagnosis: ESSENTIAL HYPERTENSION[ICD9: 401.9] Diagnosis: Aortic stenosis[ICD9: 424.1] Diagnosis: Hyperlipidemia[ICD9: 272.4] Trina Camacho MD, [facility] CPT-4: 42848 03/20/2014 ([id number]) OFFICE VISI T, [facility] - LEVEL 4 Diagnosis: ESSENTIAL HYPERTENSION[ICD9: 401.9] Diagnosis: DIABETES TYPE II[ICD9: 250.00] Diagnosis: Heart murmur[ICD9: 785.2] Diagnosis: Snoring[ICD9: 786.09] Diagnosis: Sleep-disordered breathing[ICD9: 780.59] Trina Camacho MD, [facility] CPT-4: 56069 03/01/2014 Plan of Care Planned Activity Notes C odes Status Date Visit Plan: UTI-ER follow up -sympt oms have improved -culture positive for E.coli -continue treatment with cefdinir -finish all of abx - increase water intake -decrease tea intake -call if symptoms return or any other concerns. Patient verbalized understanding of plan. 09/02/2018 Appointment: Susu Mills WPtel: [phone] (15 min) Moderate 09/02/2018 Patient Education: Patient Medication Summary Completed 09/02/2018 Appointment: Trina Camacho WPtel: [address] [place], [place] [phone] (15 min) Moderate 06/23/2018 Visit Plan: Hypertension [...] any worse 06/21/2018 Appointment: Susu Mills WPtel: [facility] (30 min) Complex 06/21/2018 Patient Education: Patient [...] spray. 05/14/2018 Appointment: Lulu Mann WPtel: [facility] [address] (15 min) Moderate 05/14/2018 Patient Education: Patient [...] allergy spray. 03/11/2018 Appointment: Lulu Mann WPtel: [facility] (15 min) Moderate 03/11/2018 Patient Education: Patient [...] allergy spray. 02/10/2018 Appointment: Lulu Mann WPtel: [address] [place], [place] [phone] (15 min) Moderate 02/10/2018 Patient Education: Patient [...] increased activity 12/23/2017 Appointment: Trina Camacho WPtel: [address] [place], [place] [id number] (15 min) Moderate 12/23/2017 Patient Education: Patient [...] inhales bid. 06/24/2017 Appointment: Trina Camacho WPtel: [facility] (15 min) Moderate 06/24/2017 Patient Education: Patient [...] allergy spray. 03/17/2017 Appointment: Lulu Mann WPtel: [phone] (15 min) Moderate 03/17/2017 Patient Education: Patient [...] medications. 12/24/2016 Appointment: [phone] (15 min) Moderate 12/24/2016 Patient Education: Patient [...] worsen. 11/18/2016 [facility]ment[phone] (30 min) Complex 11/18/2016 Patient Education: Patient [...] at home. 06/24/2016 Appointment: Trina Camacho WPtel: [phone] [facility] (15 min) Moderate 06/24/2016 Patient Education: Patient [...] and swallow 05/20/2016 Appointment: Trina Camacho WPtel: [facility] (15 min) Moderate 05/20/2016 Patient Education: Patient Medication Summary Completed 05/20/2016 Patient Education: Obesity Completed 05/20/2016 Patient Education: Hypertension Completed 05/20/2016 Visit Plan: PNEUMONIA - PT IS CLINI WESLY SYMPTOMATIC FOR PNEUMONIA - A CHEST XRAY, SPUTUM C AND S, BLOOD CULTURES, AND LABS HAVE BEEN ORDERED IN ORDER TO FURTHER WORK-UP THE ACUTE ILLNESS. 05/09/2016 Appointment: Susu Mills WPtel: [phone] [place] (15 min) Moderate 05/09/2016 Patient Education: Patient Medication Summary Completed 05/09/2016 Visit Plan: URI - Pt advised to inc rease fluids, vitamin C. Discussed natural and expected course of this diagnosis and need to alert me if symptoms do not follow expected course, or if any worse. RX sent to patient's pharmacy. 04/28/2016 Appointment: Lulu Mann WPtel: [phone] [place] (15 min) Moderate 04/28/2016 Patient Education: Patient [...] verbalized understanding. 04/04/2016 Appointment: Susu Mills WPtel: [address] [place], [place] [phone] [place] (10 min) Simple 04/04/2016 Patient Education: Patient Medication Summary Completed 04/04/2016 Patient Education: Hypertension Completed 04/04/2016 Visit Plan: Pneumonia-cough- improv ing-finish abx and call if symptoms do not completely resolved-patient verbalized understanding of plan. 03/28/2016 Appointment: Susu Mills WPtel: [address] [place], [place] [phone] (30 min) Complex 03/28/2016 Patient Education: Patient Medication Summary Completed 03/28/2016 Patient Education: Obesity Completed 03/28/2016 Visit Plan: Cough-kenalog injection today-start abx as directed-f/u , sooner if needed 03/24/2016 Appointment: Susu Mills WPtel: [address] [place], [place] [phone] (10 min) Simple 03/24/2016 Patient Education: Patient [...] show improvement. 02/13/2016 Appointment: Susu Mills WPtel: [facility] [place] [address] (15 min) Moderate 02/13/2016 Patient Education: Patient [...] spray. 08/02/2015 Appointment: Lulu Mann WPtel: [phone] (15 min) Moderate 08/02/2015 Patient Education: Patient [...] 08/03/2014 Visit Plan: Occult blood negative x . 08/03/2014 Appointment: Lab Draw 08/03/2014 Patient Education: [...] Patient Medication Summary Completed 07/31/2014 Patient Education: [facility] - Saving [employer] - Lisinopril - 18+ - Dynamic Portal ID Completed 07/31/2014 Visit Plan: XSQ-pfbrvdai-wzhur slig htly elevated-patient tolerated lisinopril 5mg BID well, did not tolerate 10mg daily in the past. Recommend he monitor blood pressure and pulse at home and bring in readings for review. Aortic Stenosis-recommend stress test-refer to Dr Avilez for evaluation Hyperlipidemia-continue statin medication-increase exercise and weight loss-low fat diet. Repeat labs in 3-6 months-Patient verbalized understanding of plan. Daytime rpadxvktijv-bbrqspx-alrkpxo-refer for sleep study 03/20/2014 Visit Plan: DAR-nnzseriu-ccden slig htly elevated-patient tolerated lisinopril 5mg BID well, did not tolerate 10mg daily in the past. Recommend he monitor blood pressure and pulse at home and bring in readings for review. Aortic Stenosis-recommend stress test-refer to Dr Avilez for evaluation Hyperlipidemia-continue statin medication-increase exercise and weight loss-low fat diet. Repeat labs in 3-6 months-Patient verbalized understanding of plan. 03/20/2014 Appointment: Follow up 03/20/2014 Patient Education: Patient Medication Summary Completed 03/20/2014 Care Plan: Referral Order SNOMED-CT : [id number] Ordered 03/20/2014 Visit Plan: Hypertension - uncontro [...] previous physician. 03/01/2014 Appointment: Trina Camacho WPtel: [address] [place], [place] [id number] New Patient 03/01/2014 Patient Education: Patient Medication Summary Completed 03/01/2014 Patient Education: Hypertension Completed 03/01/2014 Referral: Dr Avilez Referral Initiated Instructions Comment . URI - Pt advised t o [...] concerns. Patient verbalized understanding of plan. . Well Adult - pt wa s [...] - dulera inhaler two inhales bid. . Sinusitis - Pt has acute infection [...] in the nasal steroid allergy spray. . URI - Pt advised t o increase fluids, vitamin C. Discussed natural and expected course of this diagnosis and need to alert me if symptoms do not follow expected course, or if any worse. RX sent to patient's pharmacy. . Hypertension - unc ontrolled - the [...] his labs from his previous physician. . Welcome to Medic[facility] Exam - [...] to maintain independece in the home. . Cough-kenalog inje ction today-start abx as directed-f/u , sooner if needed . Hypertension - wel l controlled - [...] assure normal liver response to medications. . Well Adult - pt wa s [...] - dulera inhaler two inhales bid. . Medicare Exam - to day we [...] DOPA paperwork for health care surrogate. . Sinusitis - Pt has acute infection [...] in blood pressure readings at home. . Occult blood negat cassy x3. . [...] copy Elevated fasting glucose-check Hgb A1C . Hypertension - wel l controlled - [...] with dietary changes and increased activity . Allergies - chroni c - recommended [...] Call if symptoms do not show improvement. GET A TETANUS SHOT DOXYCYCLINE 100MG TWICE [...] not resolve or if any worse . Sinusitis - Pt has acute infection [...] in the nasal steroid allergy spray. . BSQ-rtfppzrp-kubes slightly elevated-patient tolerated lisinopril 5mg BID well, did not tolerate 10mg daily in the past. Recommend he monitor blood pressure and pulse at home and bring in readings for review. Aortic Stenosis-recommend stress test-refer to Dr Avilez for evaluation Hyperlipidemia-continue statin medication-increase exercise and weight loss-low fat diet. Repeat labs in 3-6 months-Patient verbalized understanding of plan. Daytime qzvcuhmekjw-mzosoqx-hxddkri-refer for sleep study . ZDB-efyrjbgi-ewdnu slightly elevated-patient tolerated lisinopril 5mg BID well, did not tolerate 10mg daily in the past. Recommend he monitor blood pressure and pulse at home and bring in readings for review. Aortic Stenosis-recommend stress test-refer to Dr Avilez for evaluation Hyperlipidemia-continue statin medication-increase exercise and weight loss-low fat diet. Repeat labs in 3-6 months-Patient verbalized understanding of plan. . HTN-no well contro lled-monitor over the weekend and call with readings-call for chest pain, shortness of breath, etc. Patient verbalized understanding of plan. Cough-recent pneumonia-history of tobacco use-symptoms improved-RX for a short course of prednisone sent to patient's pharmacy and instructed on use. Call Thursday with update. Patient verbalized understanding. . Bronchitis - acute case of bronchitis [...]
--- OUTSIDE RECORDS SUMMARY | 2019-03-16 12:32 | XMS REPORT | CCD ---
Author Author Farshad Camacho Organization Trina Camacho MD, [facility] Address [address] [place] [address] Phone Care Team Providers Care [facility] Attendant Name Role Phone PP Unavailable CCM Unavailable Summary Purpose Interface Exchange Insurance Providers Payer name Policy type / Coverage type Covered alliance party ID Effective Begin Date Effective End Date WPS Medicare Part B Medicare Part B [id number] Unknown Cigna Medicare Part B 80 [id number] Unknown Family history Brother Diagnosis Age At Onset lung cancer Unknown Alcoholism Unknown Mother Diagnosis Age At Onset Cancer Unknown Pancratic cancer Unknown Arthritis Unknown Father Diagnosis Age At Onset Alcoholism Unknown Social History Social History Element Codes Description Effective Dates Marital status Unknown M alberto Rice 03/01/2014 Number of children Unknown 3 and 3 step 03/01/[address]: 2923043 Former smoker quit 199603/01/2014 Allergies, Adverse Reactions, [...] Instructions allopurinol 300 mg t ablet RxNorm: 770792 TAKE 1 TABLET BY MOUT H ONCE DAILY 09/02/2018 No Stop Date Active Kenalog 40 mg/mL russell pension for injection RxNorm: 8560331 Milliliter(s) Inj 06/21/2018 06/21/2018 In active doxycycline hyclate 100 mg tablet RxNorm: 9161464 1 Tablet(s) PO BID 06/21/2018 06/27/2018 Inactive Tamiflu 75 mg capsule RxNorm: 603365 1 Capsule(s) PO BID 05/14/2018 05/18/2018 Inactive Kenalog 40 mg/mL russell pension for injection RxNorm: 4811848 Milliliter(s) Inj 05/14/2018 05/14/2018 In active prednisone 10 mg tablet RxNorm: 366832 Tablet(s) PO UD 03/11/2018 06/20/2018 Inactive 60,50,40,30,20,10 Kenalog 40 mg/mL russell pension for injection RxNorm: 9086023 1 Milliliter(s) Inj 03/11/2018 03/11/2018 In active Keflex 500 mg capsule RxNorm: 668270 1 Capsule(s) PO TID 03/11/2018 03/20/2018 Inactive Symbicort 160 mcg-4. 5 mcg/actuation HFA aerosol inhaler RxNorm: 8124981 2 Puff(s) INH BID 02/10/2018 No Stop Date Active Keflex 500 mg capsule RxNorm: 039124 1 Capsule(s) PO TID 02/10/2018 02/19/2018 Inactive prednisone 10 mg tablet RxNorm: 785748 Tablet(s) PO UD start on 11/1902/10/2018 03/09/2018 Inactive 60,50,40,30,20,10 Advair Diskus 250 mc g-50 mcg/dose powder for inhalation RxNorm: 5086612 1 Puff(s) INH BID 12/29/2017 No Stop Date Active Zithromax Z-Poncho 250 mg tablet RxNorm: 126953 1 Tablet(s) PO UD 12/29/2017 01/02/2018 Inactive bj Dodge Perles 100 mg capsule RxNorm: 840511 1-2 Capsule(s) PO TID as needed 12/29/2017 01/02/2018 In active allopurinol 300 mg t ablet RxNorm: 093293 Tablet(s) TAKE ONE TA BLET BY MOUTH ONCE DAILY 12/10/2017 09/01/2018 Inactive Kenalog 40 mg/mL russell pension for injection RxNorm: 7744165 1.5 Milliliter(s) In j 12/03/2017 12/03/2017 In active allopurinol 300 mg t ablet RxNorm: 607522 TAKE ONE TABLET BY MO UTH ONCE DAILY 09/08/2017 12/09/2017 In active allopurinol 300 mg t ablet RxNorm: 035531 TAKE ONE TABLET BY MO UTH ONCE DAILY 06/15/2017 09/07/2017 In active Keflex 500 mg capsule RxNorm: 824589 1 Capsule(s) PO TID 05/04/2017 05/13/2017 Inactive Kenalog 40 mg/mL russell pension for injection RxNorm: 8616053 1 Milliliter(s) Inj 03/17/2017 03/17/2017 In active Keflex 500 mg capsule RxNorm: 351194 1 Capsule(s) PO TID 03/13/2017 03/12/2017 Inactive Keflex 500 mg capsule RxNorm: 468831 1 Capsule(s) PO TID 03/13/2017 03/22/2017 Inactive prednisone 10 mg tablet RxNorm: 248745 Tablet(s) PO UD start on 11/1911/18/2016 12/23/2016 Inactive 60,50,40,30,20,10 Advair Diskus 250 mc g-50 mcg/dose powder for inhalation RxNorm: 5250876 1 Puff(s) INH BID 11/18/2016 12/28/2017 Inactive doxycycline hyclate 100 mg capsule RxNorm: 0135569 1 Capsule(s) PO BID 11/18/2016 11/27/2016 In active Kenalog 40 mg/mL russell pension for injection RxNorm: 3645432 Milliliter(s) Inj 11/18/2016 11/18/2016 In active nystatin 100,000 uni t/mL oral suspension RxNorm: 351310 5 Milliliter(s) PO QI D 05/20/2016 05/29/2016 In active allopurinol 300 mg t ablet RxNorm: 384344 TAKE ONE TABLET BY [facility] ONCE DAILY 05/11/2016 05/05/2017 In active Tessalon Perles 100 mg capsule RxNorm: 397926 1-2 Capsule(s) PO TID as needed 04/29/2016 05/03/2016 In active Prilosec OTC 20 mg t ablet,delayed release RxNorm: 830565 Tablet(s) PO 04/28/2016 11/16/2016 In active doxycycline hyclate 100 mg capsule RxNorm: 5176145 1 Capsule(s) PO BID 04/28/2016 05/07/2016 In active Tamiflu 75 mg capsule RxNorm: 750912 1 Capsule(s) PO BID 04/07/2016 04/11/2016 Inactive Tamiflu 75 mg capsule RxNorm: 008717 1 Capsule(s) PO BID 04/07/2016 04/06/2016 Inactive prednisone 20 mg tablet RxNorm: 898034 1 Tablet(s) PO BID 04/04/2016 04/08/2016 Inactive Kenalog 40 mg/mL russell pension for injection RxNorm: 0760930 1 Milliliter(s) Inj 03/24/2016 03/24/2016 In active cefdinir 300 mg capsule RxNorm: 498529 1 Capsule(s) PO BID 03/24/2016 03/30/2016 Inactive Zithromax Z-Poncho 250 mg tablet RxNorm: 377899 1 Tablet(s) PO UD 03/24/2016 03/28/2016 Inactive zpack cefdinir 300 mg capsule RxNorm: 303205 1 Capsule(s) PO BID 03/24/2016 03/23/2016 Inactive Flonase Allergy Reli ef 50 mcg/actuation nasal spray,suspension RxNorm: 5456978 1 Carney NASAL BID 02/13/2016 No Stop Date Active doxycycline hyclate 100 mg capsule RxNorm: 7167449 1 Capsule(s) PO BID 02/13/2016 02/19/2016 In active lisinopril 5 mg tablet RxNorm: 467387 1 Tablet(s) PO BID TAKE ONE TABLET BY MO RUST TWICE DAILY 11/20/2015 05/12/2016 Inactive hold until patient calls fo r refill doxycycline hyclate 100 mg capsule RxNorm: 6945599 1 Capsule(s) PO BID 08/02/2015 08/08/2015 In active Kenalog 40 mg/mL russell pension for injection RxNorm: 4702125 Milliliter(s) Inj 08/02/2015 08/02/2015 In active lisinopril 5 mg tablet RxNorm: 504160 TAKE ONE TABLET BY MOUTH TWICE DAILY 06/11/2015 11/19/2015 In active allopurinol 300 mg t ablet RxNorm: 924867 1 Tablet(s) PO daily 05/08/2015 05/01/2016 Inactive lisinopril 5 mg tablet RxNorm: 756733 1 Tablet(s) PO BID 01/30/2015 05/29/2015 Inactive [AttnRPh: Saving apply/adjudicate RxGRP:SG20 RxBIN:[id number] RxPCN: ID#:[id number]] Zithromax Z-Poncho 250 mg tablet RxNorm: 000710 1 Tablet(s) PO UD 01/10/2015 03/23/2016 Inactive zpack allopurinol 300 mg t ablet RxNorm: 129802 1 Tablet(s) PO daily 10/31/2014 04/28/2015 Inactive lisinopril 5 mg tablet RxNorm: 261196 1 Tablet(s) PO BID 07/31/2014 11/27/2014 Inactive [AttnRPh: Saving apply/adjudicate RxGRP:SG20 RxBIN:[id number] RxPCN: ID#:[id number]] allopurinol 300 mg t ablet RxNorm: 698997 1 Tablet(s) PO daily 05/17/2014 10/30/2014 Inactive lisinopril 5 mg tablet RxNorm: 237222 1 Tablet(s) PO BID 03/01/2014 06/28/2014 Inactive [SAVINGS FOR UNINSURED PATIENTS -- BIN:[id number], PCN: [id number], Group: [id number], ID# [id number], Process claim through [employer], for questions: . THIS IS NOT INSURANCE.] Fish Oil 1,000 mg ca psule RxNorm: 3 Capsule(s) PO daily No Start Date Active B Complex 1 oral RxNorm: 92702 oral No Start Date Active Vitamin D3 1,000 uni t capsule RxNorm: 463369 2 Capsule(s) PO daily No Start Date Active Zyrtec 10 mg capsule RxNorm: 1645350 1 Capsule(s) PO daily No Start Date Active fenofibrate nanocrys tallized 48 mg tablet RxNorm: 666270 1 Tablet(s) PO daily No Start Date Active metoprolol tartrate 25 mg tablet RxNorm: 244899 1 Tablet(s) PO daily No Start Date Active multivitamin tablet RxNorm: 1 Tablet(s) PO daily No Start Date Active pravastatin 40 mg ta blet RxNorm: 483135 1 Tablet(s) PO daily No Start Date Active Tessalon Perles 100 mg capsule RxNorm: 882702 1-2 Capsule(s) PO TID as needed No Start Date 04/28/2016 Inactive allopurinol 300 mg t ablet RxNorm: 633209 1 Tablet(s) PO daily No Start Date 05/16/2014 Inactive metformin 500 mg tablet RxNorm: 086287 1 Tablet(s) PO BID No Start Date 02/14/2014 Inactive pioglitazone 15 mg t ablet RxNorm: 635452 1 Tablet(s) PO daily No Start Date 07/30/2014 Inactive lisinopril 5 mg tablet RxNorm: 641452 1 Tablet(s) PO daily No Start Date 02/28/2014 Inactive losartan 25 mg tablet RxNorm: 150346 1/2 Tablet(s) PO daily No Start Date 01/12/2018 Inactive Zithromax Z-Poncho 250 mg tablet RxNorm: 315332 1 Tablet(s) PO UD No Start Date 01/09/2015 Inactive bj Medication Administered Medication Codes Instruc tions Start Date Status Kenalog 40 mg/mL suspension for injection RxNorm: 6915416 Milliliter 06/21/2018 No longer Active Kenalog 40 mg/mL suspension for injection RxNorm: 5763042 Milliliter 05/14/2018 No longer Active Kenalog 40 mg/mL suspension for injection RxNorm: 7488367 1Milliliter 03/11/2018 N o longer Active Kenalog 40 mg/mL suspension for injection RxNorm: 1136008 1.5Milliliter 12/03/2017 No longer Active Kenalog 40 mg/mL suspension for injection RxNorm: 0545026 1Milliliter 03/17/2017 N o longer Active Kenalog 40 mg/mL suspension for injection RxNorm: 8743361 Milliliter 11/18/2016 No longer Active Kenalog 40 mg/mL suspension for injection RxNorm: 8093348 1Milliliter 03/24/2016 N o longer Active Kenalog 40 mg/mL suspension for injection RxNorm: 3848974 Milliliter 08/02/2015 No longer Active Immunizations Vaccine [...] Item Item Code Result Date Comp Metabolic Dlr146 NA 138 mEq/L 06/22/2018 Comp Metabolic Vxt523 K 4.3 mEq/L 06/22/2018 Comp Metabolic Ojd293 CL 102 mEq/L 06/22/2018 Comp Metabolic Buz104 CO2 29.0 mEq/L 06/22/2018 Comp Metabolic Bhy799 AN ION GAP 11 06/22/2018 Comp Metabolic Rkv657 GL UCOSE 89 mg/dL 06/22/2018 Comp Metabolic Rft160 Cr eat 1.3 mg/dL 06/22/2018 Comp Metabolic Yts709 eG FR 59 ml/min/1.73m2 06/22 Comp Metabolic Kwp023 BUN 21 mg/dL 06/22/2018 Comp Metabolic Smo962 B/ C Ratio 16.4 Ratio 06/22/2018 Comp Metabolic Pkx670 CA LCIUM 8.8 mg/dL 06/22/2018 Comp Metabolic Nio424 AL K PHOS 70 U/L 06/22/2018 Comp Metabolic Afg864 T(SGOT) 26 U/L 06/22/2018 Comp Metabolic Fgj930 AL T(SGPT) 21 U/L 06/22/2018 Comp Metabolic Wgh749 BI LI T 0.6 mg/dL 06/22/2018 Comp Metabolic Lfb466 AL BUMIN 3.9 g/dL 06/22/2018 Comp Metabolic Tki230 TP RO 6.7 g/dL 06/22/2018 Comp Metabolic Fio993 GL OB 2.8 g/dL 06/22/2018 Comp Metabolic Rje463 A/ G Ratio 1.4 Ratio 06/22/2018 Comp Metabolic Usa133 Os mo 278 mOsmo 06/22/2018 Cbc With [...] 32.7 pg 06/22/2018 Cbc With Differential Ord2 [place]% 11.0 % 06/22/2018 Cbc With Differential Ord2 [...] 1.49 K/ul 06/22/2018 Cbc With Differential Ord2 [place] ABS# 0.8 K/ul 06/22/2018 Cbc With Differential Ord2 Eos ABS# 0.2 K/ul 06/22/2018 Cbc With Differential Ord2 Baso ABS# 0.0 K/ul 06/22/2018 Lipid Ord30 CHOL 161 mg/dL 06/09/2018 Lipid Ord30 HDL 41.0 mg/dl 06/09/2018 Lipid Ord30 TRIG 122 mg/dL 06/09/2018 Lipid Ord30 LDL 96 mg/dL 06/09/2018 Lipid Ord30 C/HDL 3.9 Ratio 06/09/2018 Comp Metabolic Lyq906 NA 141 mEq/L 06/09/2018 Comp Metabolic Cfx904 K 4.4 mEq/L 06/09/2018 Comp Metabolic Zgp419 CL 105 mEq/L 06/09/2018 Comp Metabolic Wxa009 CO2 27.0 mEq/L 06/09/2018 Comp Metabolic Elq353 AN ION GAP 13 06/09/2018 Comp Metabolic Qgs332 GL UCOSE 118 mg/dL 06/09/2018 Comp Metabolic Ibo395 Cr eat 1.4 mg/dL 06/09/2018 Comp Metabolic Xhf437 eG FR 54 ml/min/1.73m2 06/09 Comp Metabolic Ecl953 BUN 15 mg/dL 06/09/2018 Comp Metabolic Uym692 B/ C Ratio 10.8 Ratio 06/09/2018 Comp Metabolic Rlx168 CA LCIUM 9.0 mg/dL 06/09/2018 Comp Metabolic Twr004 AL K PHOS 77 U/L 06/09/2018 Comp Metabolic Qbh782 T(SGOT) 24 U/L 06/09/2018 Comp Metabolic Kfy952 AL T(SGPT) 32 U/L 06/09/2018 Comp Metabolic Sza427 BI LI T 0.6 mg/dL 06/09/2018 Comp Metabolic Wyv223 AL BUMIN 4.0 g/dL 06/09/2018 Comp Metabolic Cos146 TP RO 6.9 g/dL 06/09/2018 Comp Metabolic Byh329 GL OB 3.0 g/dL 06/09/2018 Comp Metabolic Ckv646 A/ G Ratio 1.3 Ratio 06/09/2018 Comp Metabolic Iql423 Os mo 283 mOsmo 06/09/2018 Comp Metabolic Ejz342 NA 136 mEq/L 12/22/2017 Comp Metabolic Txd585 K 4.2 mEq/L 12/22/2017 Comp Metabolic Dlf211 CL 105 mEq/L 12/22/2017 Comp Metabolic Qkv838 CO2 30.0 mEq/L 12/22/2017 Comp Metabolic Voh088 AN ION GAP 5 12/22/2017 Comp Metabolic Ofu562 GL UCOSE 85 mg/dL 12/22/2017 Comp Metabolic Nuj990 Cr eat 1.2 mg/dL 12/22/2017 Comp Metabolic Chy174 eG FR 62 ml/min/1.73m2 12/22 Comp Metabolic Lvl287 BUN 17 mg/dL 12/22/2017 Comp Metabolic Vsr678 B/ C Ratio 13.9 Ratio 12/22/2017 Comp Metabolic Syd127 CA LCIUM 9.3 mg/dL 12/22/2017 Comp Metabolic Hek289 AL K PHOS 78 U/L 12/22/2017 Comp Metabolic Yrq530 T(SGOT) 24 U/L 12/22/2017 Comp Metabolic Aeo191 AL T(SGPT) 28 U/L 12/22/2017 Comp Metabolic Cno802 BI LI T 0.5 mg/dL 12/22/2017 Comp Metabolic Ggw537 AL BUMIN 4.0 g/dL 12/22/2017 Comp Metabolic Qwq052 TP RO 6.6 g/dL 12/22/2017 Comp Metabolic Jje099 GL OB 2.6 g/dL 12/22/2017 Comp Metabolic Ktd338 A/ G Ratio 1.6 Ratio 12/22/2017 Comp Metabolic Mlj279 Os mo 273 mOsmo 12/22/2017 Cbc With [...] 31.9 pg 12/22/2017 Cbc With Differential Ord2 [place]% 6.3 % 12/22/2017 Cbc With Differential Ord2 [...] 1.92 K/ul 12/22/2017 Cbc With Differential Ord2 [place] ABS# 0.6 K/ul 12/22/2017 Cbc With Differential Ord2 Eos ABS# 0.3 K/ul 12/22/2017 Cbc With Differential Ord2 Baso ABS# 0.0 K/ul 12/22/2017 Comp Metabolic Zfd152 NA 135 mEq/L 06/22/2017 Comp Metabolic Vxy799 K 4.2 mEq/L 06/22/2017 Comp Metabolic Ytm311 CL 101 mEq/L 06/22/2017 Comp Metabolic Zqt435 CO2 27.0 mEq/L 06/22/2017 Comp Metabolic Vbq671 AN ION GAP 11 06/22/2017 Comp Metabolic Boo763 GL UCOSE 89 mg/dL 06/22/2017 Comp Metabolic Fhl271 Cr eat 1.5 mg/dL 06/22/2017 Comp Metabolic Bfz990 eG FR 51 ml/min/1.73m2 06/22 Comp Metabolic Ttl792 BUN 16 mg/dL 06/22/2017 Comp Metabolic Wcm654 B/ C Ratio 11.0 Ratio 06/22/2017 Comp Metabolic Qhh118 CA LCIUM 8.9 mg/dL 06/22/2017 Comp Metabolic Fsn430 AL K PHOS 79 U/L 06/22/2017 Comp Metabolic Mll598 T(SGOT) 26 U/L 06/22/2017 Comp Metabolic Rqr874 AL T(SGPT) 26 U/L 06/22/2017 Comp Metabolic Azn728 BI LI T 0.4 mg/dL 06/22/2017 Comp Metabolic Lky559 AL BUMIN 4.1 g/dL 06/22/2017 Comp Metabolic Axt337 TP RO 6.9 g/dL 06/22/2017 Comp Metabolic Vmv407 GL OB 2.8 g/dL 06/22/2017 Comp Metabolic Dkl139 A/ G Ratio 1.5 Ratio 06/22/2017 Comp Metabolic Avs906 Os mo 271 mOsmo 06/22/2017 Cbc With [...] 32.6 pg 06/22/2017 Cbc With Differential Ord2 [place]% 7.9 % 06/22/2017 Cbc With Differential Ord2 [...] 2.14 K/ul 06/22/2017 Cbc With Differential Ord2 [place] ABS# 0.8 K/ul 06/22/2017 Cbc With Differential [...] 33.2 pg 12/25/2015 Cbc With Differential Ord2 [place]% 7.6 % 12/25/2015 Cbc With Differential Ord2 [...] 1.86 K/ul 12/25/2015 Cbc With Differential Ord2 [place] ABS# 0.6 K/ul 12/25/2015 Cbc With Differential Ord2 Eos ABS# 0.2 K/ul 12/25/2015 Cbc With Differential Ord2 Baso ABS# 0.1 K/ul 12/25/2015 Comp Metabolic Hih725 NA 136 mEq/L 12/25/2015 Comp Metabolic Ihh018 K 4.2 mEq/L 12/25/2015 Comp Metabolic Kxt619 CL 104 mEq/L 12/25/2015 Comp Metabolic Kjh144 CO2 26.0 mEq/L 12/25/2015 Comp Metabolic Jlt497 AN ION GAP 10 12/25/2015 Comp Metabolic Amb154 GL UCOSE 104 mg/dL 12/25/2015 Comp Metabolic Kga249 Cr eat 1.3 mg/dL 12/25/2015 Comp Metabolic Wsy316 eG FR 59 ml/min/1.73m2 12/24 Comp Metabolic Niw821 BUN 23 mg/dL 12/25/2015 Comp Metabolic Wpj439 B/ C Ratio 18.0 Ratio 12/25/2015 Comp Metabolic Yxe566 CA LCIUM 9.1 mg/dL 12/25/2015 Comp Metabolic Geu307 AL K PHOS 76 U/L 12/25/2015 Comp Metabolic Emk898 T(SGOT) 30 U/L 12/25/2015 Comp Metabolic Mvd855 AL T(SGPT) 28 U/L 12/25/2015 Comp Metabolic Ait622 BI LI T 0.3 mg/dL 12/25/2015 Comp Metabolic Azk076 AL BUMIN 4.0 g/dL 12/25/2015 Comp Metabolic Cbh373 TP RO 6.6 g/dL 12/25/2015 Comp Metabolic Lam772 GL OB 2.6 g/dL 12/25/2015 Comp Metabolic Iqy217 A/ G Ratio 1.5 Ratio 12/25/2015 Comp Metabolic Rnh165 Os mo 276 mOsmo 12/25/2015 Cbc With [...] 32.4 pg 06/25/2015 Cbc With Differential Ord2 [place]% 7.1 % 06/25/2015 Cbc With Differential Ord2 [...] 2.18 K/ul 06/25/2015 Cbc With Differential Ord2 [place] ABS# 0.7 K/ul 06/25/2015 Cbc With Differential Ord2 Eos ABS# 0.2 K/ul 06/25/2015 Cbc With Differential Ord2 Baso ABS# 0.0 K/ul 06/25/2015 Cbc With Differential Ord2 New Analyzer Notice Please note new ref ranges s tarting 03-28-2015 due to implemntation of new five part differential hematolgy analyzer. 06/25/2015 %Hba1C Mlu318 % HbA1c 47692-8 6.1 % 06/25/2015 %Hba1C Eyd549 Gluc Ave 128 mg/dL 06/25/2015 Comp Metabolic Qim778 NA 135 mEq/L 06/25/2015 Comp Metabolic Xcj852 K 4.3 mEq/L 06/25/2015 Comp Metabolic Bia232 CL 102 mEq/L 06/25/2015 Comp Metabolic Iua180 CO2 26.0 mEq/L 06/25/2015 Comp Metabolic Ifp403 AN ION GAP 11 06/25/2015 Comp Metabolic Ksi406 GL UCOSE 81 mg/dL 06/25/2015 Comp Metabolic Xce694 Cr eat 1.5 mg/dL 06/25/2015 Comp Metabolic Jew494 eG FR 49 ml/min/1.73m2 06/24 Comp Metabolic Lhc494 BUN 20 mg/dL 06/25/2015 Comp Metabolic Vsl962 B/ C Ratio 13.2 Ratio 06/25/2015 Comp Metabolic Lva020 CA LCIUM 9.5 mg/dL 06/25/2015 Comp Metabolic Tvn417 AL K PHOS 65 U/L 06/25/2015 Comp Metabolic Tha964 T(SGOT) 25 U/L 06/25/2015 Comp Metabolic Ikb152 AL T(SGPT) 29 U/L 06/25/2015 Comp Metabolic Sjc420 BI LI T 0.4 mg/dL 06/25/2015 Comp Metabolic Dyv546 AL BUMIN 4.4 g/dL 06/25/2015 Comp Metabolic Kgk484 TP RO 7.3 g/dL 06/25/2015 Comp Metabolic Mxs738 GL OB 3.0 g/dL 06/25/2015 Comp Metabolic Cnr943 A/ G Ratio 1.5 Ratio 06/25/2015 Comp Metabolic Cgt239 Os mo 272 mOsmo 06/25/2015 Tsh Ord6 hTSH II 3.03 uIU/mL 06/25/2015 Lipid Ord30 CHOL 150 mg/dL 06/22/2015 Lipid Ord30 HDL 34.0 mg/dl 06/22/2015 Lipid Ord30 TRIG 149 mg/dL 06/22/2015 Lipid Ord30 LDL 86 mg/dL 06/22/2015 Lipid Ord30 C/HDL 4.4 Ratio 06/22/2015 Hepatic Vsl025 ALBUMIN 4.3 g/dL 06/22/2015 Hepatic Oic072 TPRO 7.0 g/dL 06/22/2015 Hepatic Evm684 GLOB 2.8 g/dL 06/22/2015 Hepatic Pjm983 A/G Ratio 1.5 Ratio 06/22/2015 Hepatic Mqq282 ALK PHOS 65 U/L 06/22/2015 Hepatic Saa146 ALT(SGPT) 33 U/L 06/22/2015 Hepatic Yvl661 AST(SGOT) 28 U/L 06/22/2015 Hepatic Zjk419 BILI T 0.5 mg/dL 06/22/2015 Hepatic Ejg154 BILI D 0.1 mg/dL 06/22/2015 Hepatic Qeb599 BILI I 0.4 mg/dL 06/22/2015 Review of [...] CPT-4: J3301 06/21/2018 THER/PROPH/DIAG INJ SC/IM CPT-4: 74182 05/14/2018 TRIAMCINOLONE ACET I [place] NOS CPT-4: J3301 05/14/2018 TRIAMCINOLONE ACET I [place] NOS CPT-4: J3301 03/11/2018 THER/PROPH/DIAG INJ SC/IM CPT-4: 44381 03/11/2018 PPPS, SUBSEQ VISIT CPT- 4: G0439 01/13/2018 TRIAMCINOLONE ACET I [place] NOS CPT-4: J3301 12/03/2017 THER/PROPH/DIAG INJ SC/IM CPT-4: 43435 12/03/2017 TRIAMCINOLONE ACET I [place] NOS CPT-4: J3301 06/24/2017 TRIAMCINOLONE ACET I [place] NOS CPT-4: J3301 03/17/2017 TRIAMCINOLONE ACET I [place] NOS CPT-4: J3301 11/18/2016 TRIAMCINOLONE ACET I [place] NOS CPT-4: J3301 03/24/2016 THER/PROPH/DIAG INJ SC/IM CPT-4: 89780 03/24/2016 TRIAMCINOLONE ACET I [place] NOS CPT-4: J3301 08/02/2015 OCCULT BLOOD FECES CPT- 4: 52560 08/03/2014 INITIAL PREVENTIVE EXAM CPT-4: G0402 07/31/2014 Vital Signs Date Vital 09/02/2018 Blood Pressure 1: 146/80 Code: 8480-6 BMI: 37.4 Code: 81919-9 Heart Rate 1: 58 bpm Height: 5'10" SpO2: 97% Weight: 261 lbs 06/21/2018 Blood Pressure 1: 130/80 Code: 8480-6 Heart Rate 1: 94 bpm Height: 5'10" SpO2: 95% Weight: 05/14/2018 Blood Pressure 1: 144/84 Code: 8480-6 Heart Rate 1: 70 bpm Height: SpO2: 95% Weight: 03/11/2018 Blood Pressure 1: 134/76 Code: 8480-6 BMI: 35.7 Code: 46046-1 Heart Rate 1: 60 bpm Height: 5'10" SpO2: 96% Weight: 249 lbs 02/10/2018 Blood Pressure 1: 140/72 Code: 8480-6 BMI: 33.7 Code: 24696-1 Heart Rate 1: 48 bpm Height: 5'10" SpO2: 95% Temperature: 36.6 (C ) / 97.8 (F) Weight: 235 lbs 01/13/2018 Blood Pressure 1: 118/66 Code: 8480-6 BMI: 33.3 Code: 17577-2 Heart Rate 1: 57 bpm Height: 5'10" SpO2: 98% Waist Measure (cm): 97 cm Weight: 232 lbs 12/23/2017 Blood Pressure 1: 120/62 Code: 8480-6 BMI: 33.7 Code: 82482-1 Heart Rate 1: 58 bpm Height: 5'10" SpO2: 96% Weight: 235 lbs 06/24/2017 Blood Pressure 1: 136/74 Code: 8480-6 BMI: 38.7 Code: 89195-4 Heart Rate 1: 75 bpm Height: 5'10" SpO2: 98% Weight: 270 lbs 03/17/2017 Blood Pressure 1: 138/78 Code: 8480-6 Heart Rate 1: 65 bpm SpO2: 97% Temperature: 36.6 (C ) / 97.8 (F) 12/24/2016 Blood Pressure 1: 134/78 Code: 8480-6 BMI: 37.2 Code: 01766-9 Heart Rate 1: 56 bpm Height: 5'10" SpO2: 98% Weight: 259 lbs 11/18/2016 Blood Pressure 1: 130/72 Code: 8480-6 BMI: 37.3 Code: 68957-8 Heart Rate 1: 70 bpm Height: 5'10" SpO2: 95% Weight: 260 lbs 06/24/2016 Blood Pressure 1: 134 Code: 8480-6 BMI: 38.3 Code: 80598-9 Heart Rate 1: 66 bpm Height: 5'10" SpO2: 98% Weight: 267 lbs 05/20/2016 Blood Pressure 1: 138/82 Code: 8480-6 BMI: 37.4 Code: 44976-9 Heart Rate 1: 65 bpm Height: 5'10" SpO2: 100% Weight: 261 lbs 05/09/2016 Blood Pressure 1: 154/78 Code: 8480-6 Heart Rate 1: 82 bpm Height: SpO2: 89% Temperature: 36.2 (C ) / 97.2 (F) Weight: 04/28/2016 Blood Pressure 1: 112/62 Code: 8480-6 BMI: 37.9 Code: 12457-0 Heart Rate 1: 73 bpm Height: 5'10" SpO2: 94% Temperature: 37.2 (C ) / 98.9 (F) Weight: 264 lbs 04/04/2016 Blood Pressure 1: 150/86 Code: 8480-6 Blood Pressure 1: 148/86 Code: 8480-6 Heart Rate 1: 71 bpm SpO2: 93% SpO2: 95% Temperature: 37.2 (C ) / 99.0 (F) 03/28/2016 Blood Pressure 1: 156/74 Code: 8480-6 BMI: 38.0 Code: 25925-2 Heart Rate 1: 84 bpm Height: 5'10" SpO2: 95% Weight: 265 lbs 02/13/2016 Blood Pressure 1: 118/62 Code: 8480-6 BMI: 39.2 Code: 19934-2 Heart Rate 1: 65 bpm Height: 5'10" SpO2: 96% Weight: 273 lbs 08/02/2015 Blood Pressure 1: 150/82 Code: 8480-6 BMI: 38.3 Code: 76670-4 Heart Rate 1: 75 bpm Height: 5'10" SpO2: 93% Weight: 267 lbs 06/22/2015 Blood Pressure 1: 138/80 Code: 8480-6 BMI: 38.7 Code: 46064-9 Heart Rate 1: 76 bpm Height: 5'10" SpO2: 96% Weight: 270 lbs 07/31/2014 Blood Pressure 1: 138/70 Code: 8480-6 BMI: 37.7 Code: 93550-5 Heart Rate 1: 70 bpm Height: 5'10" Respiratory Rate: 20 bpm Weight: 263 lbs 03/20/2014 Blood Pressure 1: 142/80 Code: 8480-6 BMI: 37.7 Code: 07726-3 Heart Rate 1: 64 bpm Height: 5'10" Weight: 263 lbs 03/01/2014 Blood Pressure 1: 150/90 Code: 8480-6 Blood Pressure 2: 140/80 Code: 8480-6 BMI: 37.3 Code: 54575-9 Heart Rate 1: 56 bpm Height: 5'10" [...] Encounters Encounter Performer Loca tion Codes Date ([id number]) 10012 EST. P ATIENT, LEVEL III Diagnosis: Urinary tract infection, site not specified[ICD10: N39.0] Susu Camacho MD, [facility] CPT-4: 62869 09/02/2018 ([id number] EST. P ATIENT, LEVEL III Diagnosis: Essential (primary) hypertension[ICD10: I10] Diagnosis: Cough[ICD10: R05] Diagnosis: Cellulitis of right finger[ICD10: L03.011] Diagnosis: Other allergic rhinitis[ICD10: J30.89] [facility] CPT-4: 50456 06/21/2018 [id number] EST. PATIENT, LEVEL III Diagnosis: Acute laryngopharyngitis[ICD10: J06.0] Diagnosis: Other allergic rhinitis[ICD10: J30.89] Diagnosis: Cough[ICD10: R05] [facility] CPT-4: 54445 05/14/2018 [id number] EST. PATIENT, LEVEL IV Diagnosis: Other acute sinusitis[ICD10: J01.80] Diagnosis: Other allergic rhinitis[ICD10: J30.89] Diagnosis: Cough[ICD10: R05] Lulu Camacho MD, [facility] CPT-4: 15391 03/11/2018 22375 EST. PATIENT, LEVEL IV Diagnosis: Other acute sinusitis[ICD10: J01.80] Diagnosis: Other allergic rhinitis[ICD10: J30.89] Lulu Camacho MD, [facility] CPT-4: 95737 02/10/2018 ([id number]) 71019 EST. P ATIENT, LEVEL IV Diagnosis: Essential (primary) hypertension[ICD10: I10] Diagnosis: Mixed hyperlipidemia[ICD10: E78.2] Diagnosis: Nonrheumatic aortic (valve) stenosis[ICD10: I35.0] Trina Camacho MD, [facility] CPT-4: 05883 12/23/2017 ([id number]) PER PM REEVA L EST PAT 65+ YR Diagnosis: Encounter for general adult medical examination with abnormal findings[ICD10: Z00.01] Trina Camacho MD, [facility] CPT-4: 35535 06/24/2017 ([id number]) Patient adm itted to the hospital from clinic (NO CHARGE) Diagnosis: [ICD9: ] Diagnosis: Essential (primary) hypertension[ICD10: I10] Diagnosis: Other allergic rhinitis[ICD10: J30.89] Diagnosis: Cough[ICD10: R05] Diagnosis: Mixed hyperlipidemia[ICD10: E78.2] Trina Camacho MD, [facility] CPT- 4: 23198D 06/24/2017 46898 EST. PATIENT, LEVEL IV Diagnosis: Other acute sinusitis[ICD10: J01.80] Diagnosis: Other allergic rhinitis[ICD10: J30.89] Lulu Camacho MD, [facility] CPT-4: 41956 03/17/2017 ([id number]) 99191 EST. P ATIENT, LEVEL IV Diagnosis: Essential (primary) hypertension[ICD10: I10] Diagnosis: Mixed hyperlipidemia[ICD10: E78.2] Trina Camacho MD, [facility] CPT- 4: 10657 12/24/2016 12910 EST. PATIENT, LEVEL IV Diagnosis: Acute bronchitis due to other specified organisms[ICD10: J20.8] Lulu Camacho MD, [facility] CPT-4: 69201 11/18/2016 ([id number]) 27007 EST. P ATIENT, LEVEL III Diagnosis: Essential (primary) hypertension[ICD10: I10] Trina Camacho MD, [facility] CPT-4: 05308 06/24/2016 ([id number]) 20086 EST. P ATIENT, LEVEL III Diagnosis: Essential (primary) hypertension[ICD10: I10] Diagnosis: Cough[ICD10: R05] Diagnosis: Candidal stomatitis[ICD10: B37.0] Trina Camacho MD, [facility] CPT-4: 50948 05/20/2016 ([id number]) Patient adm itted to the hospital from clinic (NO CHARGE) Diagnosis: Pneumonia, unspecified organism[ICD10: J18.9] Diagnosis: Cough[ICD10: R05] Trina Camacho MD, [facility] CPT-4: 97522Y 05/09/2016 47805 EST. PATIENT, LEVEL III Diagnosis: Acute laryngopharyngitis[ICD10: J06.0] Diagnosis: Cough[ICD10: R05] Lulu Camacho MD, [facility] CPT-4: 92643 04/28/2016 ([id number]) 23398 EST. P ATIENT, LEVEL III Diagnosis: Cough[ICD10: R05] Diagnosis: Essential (primary) hypertension[ICD10: I10] Susu Camacho MD, [facility] CPT-4: 34213 04/04/2016 ([id number]) 15791 EST. P ATIENT, LEVEL III Diagnosis: Cough[ICD10: R05] Diagnosis: Pneumonia, unspecified organism[ICD10: J18.9] Susu Camacho MD, [facility] CPT-4: 46537 03/28/2016 83947 EST. PATIENT, LEVEL IV Diagnosis: Other allergic rhinitis[ICD10: J30.89] Diagnosis: Other acute sinusitis[ICD10: J01.80] [facility] CPT- 4: 53364 02/13/2016 80034 EST. PATIENT, LEVEL IV Diagnosis: Acute bronchitis due to other specified organisms[ICD10: J20.8] Diagnosis: Other acute sinusitis[ICD10: J01.80] Diagnosis: Other allergic rhinitis[ICD10: J30.89] Lulu Camacho MD, [facility] CPT-4: 24822 08/02/2015 ([id number]) 38056 EST. P ATIENT, LEVEL IV Diagnosis: Essential (primary) hypertension[ICD10: I10] Diagnosis: Mixed hyperlipidemia[ICD10: E78.2] Diagnosis: Impaired fasting glucose[ICD10: R73.01] Susu Camacho MD, [facility] CPT-4: 22881 06/22/2015 ([id number]) 94126 EST. P ATIENT, LEVEL IV Diagnosis: ESSENTIAL HYPERTENSION[ICD9: 401.9] Diagnosis: Aortic stenosis[ICD9: 424.1] Diagnosis: Hyperlipidemia[ICD9: 272.4] Trina Camacho MD, [facility] CPT-4: 24646 03/20/2014 ([id number]) OFFICE VISI T, NEW - LEVEL 4 Diagnosis: ESSENTIAL HYPERTENSION[ICD9: 401.9] Diagnosis: DIABETES TYPE II[ICD9: 250.00] Diagnosis: Heart murmur[ICD9: 785.2] Diagnosis: Snoring[ICD9: 786.09] Diagnosis: Sleep-disordered breathing[ICD9: 780.59] Trina Camacho MD, [facility] CPT-4: 10507 03/01/2014 Plan of Care Planned Activity Notes C odes Status Date Visit Plan: UTI-ER follow up -sympt oms have improved -culture positive for E.coli -continue treatment with cefdinir -finish all of abx - increase water intake -decrease tea intake -call if symptoms return or any other concerns. Patient verbalized understanding of plan. 09/02/2018 Patient Education: Patient Medication Summary Completed 09/02/2018 Appointment: Trina Camacho WPtel: [address] [place], [place] [phone] (15 min) Moderate 06/23/2018 Visit Plan: Hypertension [...] any worse 06/21/2018 Appointment: Susu Mills WPtel: [facility]6 [address] (30 min) Complex 06/21/2018 Patient Education: [...] allergy spray. 05/14/2018 Appointment: Lulu Mann WPtel: [facility] (15 min) Moderate 05/14/2018 Patient Education: [...] allergy spray. 03/11/2018 Appointment: Lulu Mann WPtel: [facility]5 [facility] (15 min) Moderate 03/11/2018 Patient Education: Patient [...] allergy spray. 02/10/2018 Appointment: Lulu Mann WPtel: [facility]5 [facility] (15 min) Moderate 02/10/2018 Patient Education: Patient [...] activity 12/23/2017 Appointment: [phone] (15 min) Moderate 12/23/2017 Patient Education: Patient [...] inhales bid. 06/24/2017 Appointment: Trina Camacho WPtel: [address] [place], [place] [id number] (15 min) Moderate 06/24/2017 Patient Education: Patient [...] allergy spray. 03/17/2017 [facility]ment[phone] ([facility] min) Moderate 03/17/2017 Patient Education: Patient [...] medications. 12/24/2016 Appointment: Tr[facility]acho [facility]el[phone] (15 min) Moderate 12/24/2016 Patient Education: Patient [...] acutely worsen. 11/18/2016 Appointment: [facility] Mann [phone] (30 min) Complex 11/18/2016 Patient Education: Patient [...] at home. 06/24/2016 Appointment: Trina Camacho WPtel: [facility] (15 min) Moderate 06/24/2016 Patient Education: Patient [...] and swallow 05/20/2016 Appointment: Trina Camacho WPtel: [facility] [address] (15 min) Moderate 05/20/2016 Patient Education: Patient Medication Summary Completed 05/20/2016 Patient Education: Obesity Completed 05/20/2016 Patient Education: Hypertension Completed 05/20/2016 Visit Plan: PNEUMONIA - PT IS CLINI WESLY SYMPTOMATIC FOR PNEUMONIA - A CHEST XRAY, SPUTUM C AND S, BLOOD CULTURES, AND LABS HAVE BEEN ORDERED IN ORDER TO FURTHER WORK-UP THE ACUTE ILLNESS. 05/09/2016 Appointment: Susu Mills WPtel: [phone] [place] (15 min) Moderate 05/09/2016 Patient Education: Patient Medication Summary Completed 05/09/2016 Visit Plan: URI - Pt advised to inc rease fluids, vitamin C. Discussed natural and expected course of this diagnosis and need to alert me if symptoms do not follow expected course, or if any worse. RX sent to patient's pharmacy. 04/28/2016 Appointment: Lulu Mann WPtel: [facility]4 [facility] (15 min) Moderate 04/28/2016 Patient Education: Patient [...] verbalized understanding. 04/04/2016 Appointment: Susu Mills WPtel: [address] [place], [place] [phone] (10 min) Simple 04/04/2016 Patient Education: Patient Medication Summary Completed 04/04/2016 Patient Education: Hypertension Completed 04/04/2016 Visit Plan: Pneumonia-cough- improv ing-finish abx and call if symptoms do not completely resolved-patient verbalized understanding of plan. 03/28/2016 Appointment: Susu Mills WPtel: [address] [place], [place] [phone] (30 min) Complex 03/28/2016 Patient Education: Patient Medication Summary Completed 03/28/2016 Patient Education: Obesity Completed 03/28/2016 Visit Plan: Cough-kenalog injection today-start abx as directed-f/u , sooner if needed 03/24/2016 Appointment: Susu Mills WPtel: [address] [place], [place] [phone] (10 min) Simple 03/24/2016 Patient Education: Patient [...] show improvement. 02/13/2016 Appointment: Susu Mills WPtel: [facility]3 [address] [place] (15 min) Moderate 02/13/2016 Patient Education: Patient [...] allergy spray. 08/02/2015 Appointment: Lulu Mann WPtel: [address] [place], [place] [address] [place] (15 min) Moderate 08/02/2015 Patient Education: Patient [...] Completed 08/03/2014 Visit Plan: Welcome to Medicare [facility] m - today we discussed the patients [...] Patient Medication Summary Completed 07/31/2014 Patient Education: [facility] - [employer] - Lisinopril - 18+ - Dynamic Portal ID Completed 07/31/2014 Visit Plan: WOP-zwyvyrwj-khcyy slig htly elevated-patient tolerated lisinopril 5mg BID well, did not tolerate 10mg daily in the past. Recommend he monitor blood pressure and pulse at home and bring in readings for review. Aortic Stenosis-recommend stress test-refer to Dr Avilez for evaluation Hyperlipidemia-continue statin medication-increase exercise and weight loss-low fat diet. Repeat labs in 3-6 months-Patient verbalized understanding of plan. 03/20/2014 Visit Plan: ZCV-kprbvqxm-szywf slig htly elevated-patient tolerated lisinopril 5mg BID well, did not tolerate 10mg daily in the past. Recommend he monitor blood pressure and pulse at home and bring in readings for review. Aortic Stenosis-recommend stress test-refer to Dr Avilez for evaluation Hyperlipidemia-continue statin medication-increase exercise and weight loss-low fat diet. Repeat labs in 3-6 months-Patient verbalized understanding of plan. Daytime sbjzgcwfoyh-auhnsbw-dkrddbs-refer for sleep study 03/20/2014 Appointment: Follow up 03/20/2014 Patient Education: Patient Medication Summary Completed 03/20/2014 Care Plan: Referral Order SNOMED-CT : [id number] Ordered 03/20/2014 Visit Plan: Hypertension - uncontro [...] previous physician. 03/01/2014 Appointment: Trina Camacho WPtel: [address] [place], [place] [id number] New Patient 03/01/2014 Patient Education: Patient Medication Summary Completed 03/01/2014 Patient Education: Hypertension Completed 03/01/2014 Referral: Dr Avilez Referral Initiated Instructions Comment . ZVV-tgemmfsy-gkchq slightly elevated-patient tolerated lisinopril 5mg BID well, did not tolerate 10mg daily in the past. Recommend he monitor blood pressure and pulse at home and bring in readings for review. Aortic Stenosis-recommend stress test-refer to Dr Avilez for evaluation Hyperlipidemia-continue statin medication-increase exercise and weight loss-low fat diet. Repeat labs in 3-6 months-Patient verbalized understanding of plan. . RTA-glodiejt-yqfeq slightly elevated-patient tolerated lisinopril 5mg BID well, did not tolerate 10mg daily in the past. Recommend he monitor blood pressure and pulse at home and bring in readings for review. Aortic Stenosis-recommend stress test-refer to Dr Avilez for evaluation Hyperlipidemia-continue statin medication-increase exercise and weight loss-low fat diet. Repeat labs in 3-6 months-Patient verbalized understanding of plan. Daytime mzwyqdimatu-rngopyz-tlgjixr-refer for sleep study . Sinusitis - Pt [...] Thursday with update. Patient verbalized understanding. . Pneumonia-cough- i mproving-finish abx and call if symptoms do not completely resolved-patient verbalized understanding of plan.
--- OUTSIDE RECORDS SUMMARY | 2019-03-16 12:34 | XMS REPORT | CCD ---
Author Author Farshad Camacho Organization Trina Camacho MD, [facility] Address [address] [place] [address] Phone Care Team Providers Care Linoleum Installer Name Role Phone PP Unavailable CCM Unavailable Summary Purpose Interface Exchange Insurance Providers Payer name Policy type / Coverage type Covered libertarian ID Effective Begin Date Effective End Date WPS Medicare Part B Medicare Part B [id number] Unknown Cigna Medicare Part B 80 [id number] Unknown Family history Brother Diagnosis Age At Onset lung cancer Unknown Alcoholism Unknown Mother Diagnosis Age At Onset Cancer Unknown Pancratic cancer Unknown Arthritis Unknown Father Diagnosis Age At Onset Alcoholism Unknown Social History Social History Element Codes Description Effective Dates Marital status Unknown M alberto Rice 03/01/2014 Number of children Unknown 3 and 3 step 03/01/[address]: 5342689 Former smoker quit 199603/01/2014 Allergies, Adverse Reactions, [...] Date Stop Date Sta tus Fill Instructions Kenalog 40 mg/mL russell pension for injection RxNorm: 1792647 Milliliter(s) Inj 06/21/2018 06/21/2018 In active doxycycline hyclate 100 mg tablet RxNorm: 2103921 1 Tablet(s) PO BID 06/21/2018 06/27/2018 Inactive Tamiflu 75 mg capsule RxNorm: 902745 1 Capsule(s) PO BID 05/14/2018 05/18/2018 Inactive Kenalog 40 mg/mL russell pension for injection RxNorm: 7207412 Milliliter(s) Inj 05/14/2018 05/14/2018 In active prednisone 10 mg tablet RxNorm: 484553 Tablet(s) PO UD 03/11/2018 06/20/2018 Inactive 60,50,40,30,20,10 Kenalog 40 mg/mL russell pension for injection RxNorm: 5140930 1 Milliliter(s) Inj 03/11/2018 03/11/2018 In active Keflex 500 mg capsule RxNorm: 337239 1 Capsule(s) PO TID 03/11/2018 03/20/2018 Inactive Symbicort 160 mcg-4. 5 mcg/actuation HFA aerosol inhaler RxNorm: 3921278 2 Puff(s) INH BID 02/10/2018 No Stop Date Active Keflex 500 mg capsule RxNorm: 255207 1 Capsule(s) PO TID 02/10/2018 02/19/2018 Inactive prednisone 10 mg tablet RxNorm: 102672 Tablet(s) PO UD start on 11/1902/10/2018 03/09/2018 Inactive 60,50,40,30,20,10 Advair Diskus 250 mc g-50 mcg/dose powder for inhalation RxNorm: 8572261 1 Puff(s) INH BID 12/29/2017 No Stop Date Active Zithromax Z-Poncho 250 mg tablet RxNorm: 491649 1 Tablet(s) PO UD 12/29/2017 01/02/2018 Inactive bj Spann 100 mg capsule RxNorm: 470063 1-2 Capsule(s) PO TID as needed 12/29/2017 01/02/2018 In active allopurinol 300 mg t ablet RxNorm: 436841 Tablet(s) TAKE ONE TA BLET BY MOUTH ONCE DAILY 12/10/2017 No Stop Date Active Kenalog 40 mg/mL russell pension for injection RxNorm: 1261564 1.5 Milliliter(s) In j 12/03/2017 12/03/2017 In active allopurinol 300 mg t ablet RxNorm: 167934 TAKE ONE TABLET BY MO UTH ONCE DAILY 09/08/2017 12/09/2017 In active allopurinol 300 mg t ablet RxNorm: 037059 TAKE ONE TABLET BY MO UTH ONCE DAILY 06/15/2017 09/07/2017 In active Keflex 500 mg capsule RxNorm: 548082 1 Capsule(s) PO TID 05/04/2017 05/13/2017 Inactive Kenalog 40 mg/mL russell pension for injection RxNorm: 6347224 1 Milliliter(s) Inj 03/17/2017 03/17/2017 In active Keflex 500 mg capsule RxNorm: 388851 1 Capsule(s) PO TID 03/13/2017 03/12/2017 Inactive Keflex 500 mg capsule RxNorm: 732677 1 Capsule(s) PO TID 03/13/2017 03/22/2017 Inactive prednisone 10 mg tablet RxNorm: 527793 Tablet(s) PO UD start on 11/1911/18/2016 12/23/2016 Inactive 60,50,40,30,20,10 Advair Diskus 250 mc g-50 mcg/dose powder for inhalation RxNorm: 5720882 1 Puff(s) INH BID 11/18/2016 12/28/2017 Inactive doxycycline hyclate 100 mg capsule RxNorm: 9266290 1 Capsule(s) PO BID 11/18/2016 11/27/2016 In active Kenalog 40 mg/mL russell pension for injection RxNorm: 4848090 Milliliter(s) Inj 11/18/2016 11/18/2016 In active nystatin 100,000 uni t/mL oral suspension RxNorm: 540317 5 Milliliter(s) PO QI D 05/20/2016 05/29/2016 In active allopurinol 300 mg t ablet RxNorm: 733680 TAKE ONE TABLET BY [facility] ONCE DAILY 05/11/2016 05/05/2017 In active Tessalon Perles 100 mg capsule RxNorm: 060598 1-2 Capsule(s) PO TID as needed 04/29/2016 05/03/2016 In active Prilosec OTC 20 mg t ablet,delayed release RxNorm: 048334 Tablet(s) PO 04/28/2016 11/16/2016 In active doxycycline hyclate 100 mg capsule RxNorm: 7506619 1 Capsule(s) PO BID 04/28/2016 05/07/2016 In active Tamiflu 75 mg capsule RxNorm: 425739 1 Capsule(s) PO BID 04/07/2016 04/11/2016 Inactive Tamiflu 75 mg capsule RxNorm: 015726 1 Capsule(s) PO BID 04/07/2016 04/06/2016 Inactive prednisone 20 mg tablet RxNorm: 765375 1 Tablet(s) PO BID 04/04/2016 04/08/2016 Inactive Kenalog 40 mg/mL russell pension for injection RxNorm: 7015845 1 Milliliter(s) Inj 03/24/2016 03/24/2016 In active cefdinir 300 mg capsule RxNorm: 516728 1 Capsule(s) PO BID 03/24/2016 03/30/2016 Inactive Zithromax Z-Poncho 250 mg tablet RxNorm: 257242 1 Tablet(s) PO UD 03/24/2016 03/28/2016 Inactive zpack cefdinir 300 mg capsule RxNorm: 591913 1 Capsule(s) PO BID 03/24/2016 03/23/2016 Inactive Flonase Allergy Reli ef 50 mcg/actuation nasal spray,suspension RxNorm: 1484918 1 [place] NASAL BID 02/13/2016 No Stop Date Active doxycycline hyclate 100 mg capsule RxNorm: 1925483 1 Capsule(s) PO BID 02/13/2016 02/19/2016 In active lisinopril 5 mg tablet RxNorm: 748071 1 Tablet(s) PO BID TAKE ONE TABLET BY [facility] TWICE DAILY 11/20/2015 05/12/2016 Inactive hold until patient calls fo r refill doxycycline hyclate 100 mg capsule RxNorm: 9355967 1 Capsule(s) PO BID 08/02/2015 08/08/2015 In active Kenalog 40 mg/mL russell pension for injection RxNorm: 3159338 Milliliter(s) Inj 08/02/2015 08/02/2015 In active lisinopril 5 mg tablet RxNorm: 319218 TAKE ONE TABLET BY MOUTH TWICE DAILY 06/11/2015 11/19/2015 In active allopurinol 300 mg t ablet RxNorm: 524273 1 Tablet(s) PO daily 05/08/2015 05/01/2016 Inactive lisinopril 5 mg tablet RxNorm: 113744 1 Tablet(s) PO BID 01/30/2015 05/29/2015 Inactive [AttnRPh: Saving apply/adjudicate RxGRP:SG20 RxBIN:[id number] RxPCN: ID#:[id number]] Zithromax Z-Poncho 250 mg tablet RxNorm: 472095 1 Tablet(s) PO UD 01/10/2015 03/23/2016 Inactive zpack allopurinol 300 mg t ablet RxNorm: 800596 1 Tablet(s) PO daily 10/31/2014 04/28/2015 Inactive lisinopril 5 mg tablet RxNorm: 190783 1 Tablet(s) PO BID 07/31/2014 11/27/2014 Inactive [AttnRPh: Saving apply/adjudicate RxGRP:SG20 RxBIN:[id number] RxPCN: ID#:[id number]] allopurinol 300 mg t ablet RxNorm: 055653 1 Tablet(s) PO daily 05/17/2014 10/30/2014 Inactive lisinopril 5 mg tablet RxNorm: 020763 1 Tablet(s) PO BID 03/01/2014 06/28/2014 Inactive [SAVINGS FOR UNINSURED PATIENTS -- BIN:[id number], PCN: [id number], Group: [id number], ID# [id number], Process claim through [employer], for questions: . THIS IS NOT INSURANCE.] Fish Oil 1,000 mg ca psule RxNorm: 3 Capsule(s) PO daily No Start Date Active B Complex 1 oral RxNorm: 65327 oral No Start Date Active Vitamin D3 1,000 uni t capsule RxNorm: 098624 2 Capsule(s) PO daily No Start Date Active Zyrtec 10 mg capsule RxNorm: 5285111 1 Capsule(s) PO daily No Start Date Active fenofibrate nanocrys tallized 48 mg tablet RxNorm: 791004 1 Tablet(s) PO daily No Start Date Active metoprolol tartrate 25 mg tablet RxNorm: 616173 1 Tablet(s) PO daily No Start Date Active multivitamin tablet RxNorm: 1 Tablet(s) PO daily No Start Date Active pravastatin 40 mg ta blet RxNorm: 465175 1 Tablet(s) PO daily No Start Date Active Tessalon Perles 100 mg capsule RxNorm: 790165 1-2 Capsule(s) PO TID as needed No Start Date 04/28/2016 Inactive allopurinol 300 mg t ablet RxNorm: 973357 1 Tablet(s) PO daily No Start Date 05/16/2014 Inactive metformin 500 mg tablet RxNorm: 542077 1 Tablet(s) PO BID No Start Date 02/14/2014 Inactive pioglitazone 15 mg t ablet RxNorm: 172777 1 Tablet(s) PO daily No Start Date 07/30/2014 Inactive lisinopril 5 mg tablet RxNorm: 342331 1 Tablet(s) PO daily No Start Date 02/28/2014 Inactive losartan 25 mg tablet RxNorm: 387831 1/2 Tablet(s) PO daily No Start Date 01/12/2018 Inactive Zithromax Z-Poncho 250 mg tablet RxNorm: 411818 1 Tablet(s) PO UD No Start Date 01/09/2015 Inactive bj Medication Administered Medication Codes Instruc tions Start Date Status Kenalog 40 mg/mL suspension for injection RxNorm: 8774397 Milliliter 06/21/2018 No longer Active Kenalog 40 mg/mL suspension for injection RxNorm: 9786486 Milliliter 05/14/2018 No longer Active Kenalog 40 mg/mL suspension for injection RxNorm: 5494094 1Milliliter 03/11/2018 N o longer Active Kenalog 40 mg/mL suspension for injection RxNorm: 2114974 1.5Milliliter 12/03/2017 No longer Active Kenalog 40 mg/mL suspension for injection RxNorm: 5555782 1Milliliter 03/17/2017 N o longer Active Kenalog 40 mg/mL suspension for injection RxNorm: 3473497 Milliliter 11/18/2016 No longer Active Kenalog 40 mg/mL suspension for injection RxNorm: 2171860 1Milliliter 03/24/2016 N o longer Active Kenalog 40 mg/mL suspension for injection RxNorm: 5806522 Milliliter 08/02/2015 No longer Active Immunizations Vaccine [...] Item Item Code Result Date Comp Metabolic Kdy866 NA 138 mEq/L 06/22/2018 Comp Metabolic Jxk228 K 4.3 mEq/L 06/22/2018 Comp Metabolic Rok793 CL 102 mEq/L 06/22/2018 Comp Metabolic Zyh799 CO2 29.0 mEq/L 06/22/2018 Comp Metabolic Lns751 AN ION GAP 11 06/22/2018 Comp Metabolic Hge933 GL UCOSE 89 mg/dL 06/22/2018 Comp Metabolic Aie656 Cr eat 1.3 mg/dL 06/22/2018 Comp Metabolic Gkl083 eG FR 59 ml/min/1.73m2 06/22 Comp Metabolic Pgw854 BUN 21 mg/dL 06/22/2018 Comp Metabolic Fec315 B/ C Ratio 16.4 Ratio 06/22/2018 Comp Metabolic Sur077 CA LCIUM 8.8 mg/dL 06/22/2018 Comp Metabolic Egx511 AL K PHOS 70 U/L 06/22/2018 Comp Metabolic Uoj282 T(SGOT) 26 U/L 06/22/2018 Comp Metabolic Qll770 AL T(SGPT) 21 U/L 06/22/2018 Comp Metabolic Lpe643 BI LI T 0.6 mg/dL 06/22/2018 Comp Metabolic Bye621 AL BUMIN 3.9 g/dL 06/22/2018 Comp Metabolic Twy909 TP RO 6.7 g/dL 06/22/2018 Comp Metabolic Tso604 GL OB 2.8 g/dL 06/22/2018 Comp Metabolic Oli062 A/ G Ratio 1.4 Ratio 06/22/2018 Comp Metabolic Nyv403 Os mo 278 mOsmo 06/22/2018 Cbc With [...] 32.7 pg 06/22/2018 Cbc With Differential Ord2 [place]% 11.0 % 06/22/2018 Cbc With Differential Ord2 [...] 1.49 K/ul 06/22/2018 Cbc With Differential Ord2 [place] ABS# 0.8 K/ul 06/22/2018 Cbc With Differential Ord2 Eos ABS# 0.2 K/ul 06/22/2018 Cbc With Differential Ord2 Baso ABS# 0.0 K/ul 06/22/2018 Lipid Ord30 CHOL 161 mg/dL 06/09/2018 Lipid Ord30 HDL 41.0 mg/dl 06/09/2018 Lipid Ord30 TRIG 122 mg/dL 06/09/2018 Lipid Ord30 LDL 96 mg/dL 06/09/2018 Lipid Ord30 C/HDL 3.9 Ratio 06/09/2018 Comp Metabolic Wys799 NA 141 mEq/L 06/09/2018 Comp Metabolic Mfg227 K 4.4 mEq/L 06/09/2018 Comp Metabolic Hrk340 CL 105 mEq/L 06/09/2018 Comp Metabolic Ypv993 CO2 27.0 mEq/L 06/09/2018 Comp Metabolic Jxo560 AN ION GAP 13 06/09/2018 Comp Metabolic Mcl696 GL UCOSE 118 mg/dL 06/09/2018 Comp Metabolic Dss136 Cr eat 1.4 mg/dL 06/09/2018 Comp Metabolic Pbh189 eG FR 54 ml/min/1.73m2 06/09 Comp Metabolic Wzo836 BUN 15 mg/dL 06/09/2018 Comp Metabolic Psg642 B/ C Ratio 10.8 Ratio 06/09/2018 Comp Metabolic Lxr084 CA LCIUM 9.0 mg/dL 06/09/2018 Comp Metabolic Xek302 AL K PHOS 77 U/L 06/09/2018 Comp Metabolic Hkf925 T(SGOT) 24 U/L 06/09/2018 Comp Metabolic Hkd407 AL T(SGPT) 32 U/L 06/09/2018 Comp Metabolic Iba712 BI LI T 0.6 mg/dL 06/09/2018 Comp Metabolic Tye501 AL BUMIN 4.0 g/dL 06/09/2018 Comp Metabolic Wbl969 TP RO 6.9 g/dL 06/09/2018 Comp Metabolic Qyh570 GL OB 3.0 g/dL 06/09/2018 Comp Metabolic Php574 A/ G Ratio 1.3 Ratio 06/09/2018 Comp Metabolic Ifh082 Os mo 283 mOsmo 06/09/2018 Comp Metabolic Mar822 NA 136 mEq/L 12/22/2017 Comp Metabolic Fau090 K 4.2 mEq/L 12/22/2017 Comp Metabolic Ndp015 CL 105 mEq/L 12/22/2017 Comp Metabolic Fak428 CO2 30.0 mEq/L 12/22/2017 Comp Metabolic Lxy091 AN ION GAP 5 12/22/2017 Comp Metabolic Ghe793 GL UCOSE 85 mg/dL 12/22/2017 Comp Metabolic Qaw413 Cr eat 1.2 mg/dL 12/22/2017 Comp Metabolic Bmw467 eG FR 62 ml/min/1.73m2 12/22 Comp Metabolic Hdx804 BUN 17 mg/dL 12/22/2017 Comp Metabolic Idy769 B/ C Ratio 13.9 Ratio 12/22/2017 Comp Metabolic Aun489 CA LCIUM 9.3 mg/dL 12/22/2017 Comp Metabolic Nuz407 AL K PHOS 78 U/L 12/22/2017 Comp Metabolic Ojh868 T(SGOT) 24 U/L 12/22/2017 Comp Metabolic Ecf427 AL T(SGPT) 28 U/L 12/22/2017 Comp Metabolic Bvm699 BI LI T 0.5 mg/dL 12/22/2017 Comp Metabolic Ywe771 AL BUMIN 4.0 g/dL 12/22/2017 Comp Metabolic Ftr886 TP RO 6.6 g/dL 12/22/2017 Comp Metabolic Rio141 GL OB 2.6 g/dL 12/22/2017 Comp Metabolic Kxr005 A/ G Ratio 1.6 Ratio 12/22/2017 Comp Metabolic Gmb348 Os mo 273 mOsmo 12/22/2017 Cbc With [...] 31.9 pg 12/22/2017 Cbc With Differential Ord2 [place]% 6.3 % 12/22/2017 Cbc With Differential Ord2 [...] 1.92 K/ul 12/22/2017 Cbc With Differential Ord2 [place] ABS# 0.6 K/ul 12/22/2017 Cbc With Differential Ord2 Eos ABS# 0.3 K/ul 12/22/2017 Cbc With Differential Ord2 Baso ABS# 0.0 K/ul 12/22/2017 Comp Metabolic Iyl576 NA 135 mEq/L 06/22/2017 Comp Metabolic Yij938 K 4.2 mEq/L 06/22/2017 Comp Metabolic Unp041 CL 101 mEq/L 06/22/2017 Comp Metabolic Dts567 CO2 27.0 mEq/L 06/22/2017 Comp Metabolic Odc335 AN ION GAP 11 06/22/2017 Comp Metabolic Cga201 GL UCOSE 89 mg/dL 06/22/2017 Comp Metabolic Dob732 Cr eat 1.5 mg/dL 06/22/2017 Comp Metabolic Bqe907 eG FR 51 ml/min/1.73m2 06/22 Comp Metabolic Zlv154 BUN 16 mg/dL 06/22/2017 Comp Metabolic Rvy614 B/ C Ratio 11.0 Ratio 06/22/2017 Comp Metabolic Aqj024 CA LCIUM 8.9 mg/dL 06/22/2017 Comp Metabolic Vce933 AL K PHOS 79 U/L 06/22/2017 Comp Metabolic Run651 T(SGOT) 26 U/L 06/22/2017 Comp Metabolic Hfe394 AL T(SGPT) 26 U/L 06/22/2017 Comp Metabolic Ths213 BI LI T 0.4 mg/dL 06/22/2017 Comp Metabolic Dai446 AL BUMIN 4.1 g/dL 06/22/2017 Comp Metabolic Yru154 TP RO 6.9 g/dL 06/22/2017 Comp Metabolic Pqp470 GL OB 2.8 g/dL 06/22/2017 Comp Metabolic Cgo644 A/ G Ratio 1.5 Ratio 06/22/2017 Comp Metabolic Fqs506 Os mo 271 mOsmo 06/22/2017 Cbc With [...] 32.6 pg 06/22/2017 Cbc With Differential Ord2 [place]% 7.9 % 06/22/2017 Cbc With Differential Ord2 [...] 2.14 K/ul 06/22/2017 Cbc With Differential Ord2 [place] ABS# 0.8 K/ul 06/22/2017 Cbc With Differential [...] 33.2 pg 12/25/2015 Cbc With Differential Ord2 [place]% 7.6 % 12/25/2015 Cbc With Differential Ord2 [...] 1.86 K/ul 12/25/2015 Cbc With Differential Ord2 [place] ABS# 0.6 K/ul 12/25/2015 Cbc With Differential Ord2 Eos ABS# 0.2 K/ul 12/25/2015 Cbc With Differential Ord2 Baso ABS# 0.1 K/ul 12/25/2015 Comp Metabolic Utq540 NA 136 mEq/L 12/25/2015 Comp Metabolic Jgs230 K 4.2 mEq/L 12/25/2015 Comp Metabolic Xfg818 CL 104 mEq/L 12/25/2015 Comp Metabolic Iif284 CO2 26.0 mEq/L 12/25/2015 Comp Metabolic Akd436 AN ION GAP 10 12/25/2015 Comp Metabolic Hwc258 GL UCOSE 104 mg/dL 12/25/2015 Comp Metabolic Dhi400 Cr eat 1.3 mg/dL 12/25/2015 Comp Metabolic Yna490 eG FR 59 ml/min/1.73m2 12/24 Comp Metabolic Nfy980 BUN 23 mg/dL 12/25/2015 Comp Metabolic Szw652 B/ C Ratio 18.0 Ratio 12/25/2015 Comp Metabolic Tbn496 CA LCIUM 9.1 mg/dL 12/25/2015 Comp Metabolic Dib509 AL K PHOS 76 U/L 12/25/2015 Comp Metabolic Ovz268 T(SGOT) 30 U/L 12/25/2015 Comp Metabolic Bne229 AL T(SGPT) 28 U/L 12/25/2015 Comp Metabolic Wmp657 BI LI T 0.3 mg/dL 12/25/2015 Comp Metabolic Glm550 AL BUMIN 4.0 g/dL 12/25/2015 Comp Metabolic Imn624 TP RO 6.6 g/dL 12/25/2015 Comp Metabolic Cfq659 GL OB 2.6 g/dL 12/25/2015 Comp Metabolic Irp267 A/ G Ratio 1.5 Ratio 12/25/2015 Comp Metabolic Wvt884 Os mo 276 mOsmo 12/25/2015 Cbc With [...] 32.4 pg 06/25/2015 Cbc With Differential Ord2 [place]% 7.1 % 06/25/2015 Cbc With Differential Ord2 [...] 2.18 K/ul 06/25/2015 Cbc With Differential Ord2 [place] ABS# 0.7 K/ul 06/25/2015 Cbc With Differential Ord2 Eos ABS# 0.2 K/ul 06/25/2015 Cbc With Differential Ord2 Baso ABS# 0.0 K/ul 06/25/2015 Cbc With Differential Ord2 New Analyzer Notice Please note new ref ranges s tarting 03-28-2015 due to implemntation of new five part differential hematolgy analyzer. 06/25/2015 %Hba1C Bfg628 % HbA1c 53821-1 6.1 % 06/25/2015 %Hba1C Ytv339 Gluc Ave 128 mg/dL 06/25/2015 Comp Metabolic Ewj771 NA 135 mEq/L 06/25/2015 Comp Metabolic Kbd453 K 4.3 mEq/L 06/25/2015 Comp Metabolic Krn680 CL 102 mEq/L 06/25/2015 Comp Metabolic Zbu425 CO2 26.0 mEq/L 06/25/2015 Comp Metabolic Bzw937 AN ION GAP 11 06/25/2015 Comp Metabolic Dbb716 GL UCOSE 81 mg/dL 06/25/2015 Comp Metabolic Czy174 Cr eat 1.5 mg/dL 06/25/2015 Comp Metabolic Iaa703 eG FR 49 ml/min/1.73m2 06/24 Comp Metabolic Rll692 BUN 20 mg/dL 06/25/2015 Comp Metabolic Mgn480 B/ C Ratio 13.2 Ratio 06/25/2015 Comp Metabolic Sxk914 CA LCIUM 9.5 mg/dL 06/25/2015 Comp Metabolic Red258 AL K PHOS 65 U/L 06/25/2015 Comp Metabolic Ift747 T(SGOT) 25 U/L 06/25/2015 Comp Metabolic Qrg431 AL T(SGPT) 29 U/L 06/25/2015 Comp Metabolic Lid427 BI LI T 0.4 mg/dL 06/25/2015 Comp Metabolic Vcc423 AL BUMIN 4.4 g/dL 06/25/2015 Comp Metabolic Xqw549 TP RO 7.3 g/dL 06/25/2015 Comp Metabolic Hum740 GL OB 3.0 g/dL 06/25/2015 Comp Metabolic Jzy980 A/ G Ratio 1.5 Ratio 06/25/2015 Comp Metabolic Yul694 Os mo 272 mOsmo 06/25/2015 Tsh Ord6 hTSH II 3.03 uIU/mL 06/25/2015 Lipid Ord30 CHOL 150 mg/dL 06/22/2015 Lipid Ord30 HDL 34.0 mg/dl 06/22/2015 Lipid Ord30 TRIG 149 mg/dL 06/22/2015 Lipid Ord30 LDL 86 mg/dL 06/22/2015 Lipid Ord30 C/HDL 4.4 Ratio 06/22/2015 Hepatic San426 ALBUMIN 4.3 g/dL 06/22/2015 Hepatic Pvg524 TPRO 7.0 g/dL 06/22/2015 Hepatic Cmy577 GLOB 2.8 g/dL 06/22/2015 Hepatic Dmc497 A/G Ratio 1.5 Ratio 06/22/2015 Hepatic Mqy205 ALK PHOS 65 U/L 06/22/2015 Hepatic Hte707 ALT(SGPT) 33 U/L 06/22/2015 Hepatic Jzb493 AST(SGOT) 28 U/L 06/22/2015 Hepatic Yqy157 BILI T 0.5 mg/dL 06/22/2015 Hepatic Zcs545 BILI D 0.1 mg/dL 06/22/2015 Hepatic Ubk835 BILI I 0.4 mg/dL 06/22/2015 Review of [...] CPT-4: J3301 06/21/2018 THER/PROPH/DIAG INJ SC/IM CPT-4: 52673 05/14/2018 TRIAMCINOLONE ACET I [place] NOS CPT-4: J3301 05/14/2018 TRIAMCINOLONE ACET I [place] NOS CPT-4: J3301 03/11/2018 THER/PROPH/DIAG INJ SC/IM CPT-4: 68297 03/11/2018 PPPS, SUBSEQ VISIT CPT- 4: G0439 01/13/2018 TRIAMCINOLONE ACET I [place] NOS CPT-4: J3301 12/03/2017 THER/PROPH/DIAG INJ SC/IM CPT-4: 67434 12/03/2017 TRIAMCINOLONE ACET I [place] NOS CPT-4: J3301 06/24/2017 TRIAMCINOLONE ACET I [place] NOS CPT-4: J3301 03/17/2017 TRIAMCINOLONE ACET I [place] NOS CPT-4: J3301 11/18/2016 TRIAMCINOLONE ACET I [place] NOS CPT-4: J3301 03/24/2016 THER/PROPH/DIAG INJ SC/IM CPT-4: 33479 03/24/2016 TRIAMCINOLONE ACET I [place] NOS CPT-4: J3301 08/02/2015 OCCULT BLOOD FECES CPT- 4: 72419 08/03/2014 INITIAL PREVENTIVE EXAM CPT-4: G0402 07/31/2014 Vital Signs Date Vital 09/02/2018 Blood Pressure 1: 146/80 Code: 8480-6 BMI: 37.4 Code: 89537-9 Heart Rate 1: 58 bpm Height: 5'10" SpO2: 97% Weight: 261 lbs 06/21/2018 Blood Pressure 1: 130/80 Code: 8480-6 Heart Rate 1: 94 bpm Height: 5'10" SpO2: 95% Weight: 05/14/2018 Blood Pressure 1: 144/84 Code: 8480-6 Heart Rate 1: 70 bpm Height: SpO2: 95% Weight: 03/11/2018 Blood Pressure 1: 134/76 Code: 8480-6 BMI: 35.7 Code: 08968-3 Heart Rate 1: 60 bpm Height: 5'10" SpO2: 96% Weight: 249 lbs 02/10/2018 Blood Pressure 1: 140/72 Code: 8480-6 BMI: 33.7 Code: 03280-9 Heart Rate 1: 48 bpm Height: 5'10" SpO2: 95% Temperature: 36.6 (C ) / 97.8 (F) Weight: 235 lbs 01/13/2018 Blood Pressure 1: 118/66 Code: 8480-6 BMI: 33.3 Code: 86103-1 Heart Rate 1: 57 bpm Height: 5'10" SpO2: 98% Waist Measure (cm): 97 cm Weight: 232 lbs 12/23/2017 Blood Pressure 1: 120/62 Code: 8480-6 BMI: 33.7 Code: 54658-5 Heart Rate 1: 58 bpm Height: 5'10" SpO2: 96% Weight: 235 lbs 06/24/2017 Blood Pressure 1: 136/74 Code: 8480-6 BMI: 38.7 Code: 04183-2 Heart Rate 1: 75 bpm Height: 5'10" SpO2: 98% Weight: 270 lbs 03/17/2017 Blood Pressure 1: 138/78 Code: 8480-6 Heart Rate 1: 65 bpm SpO2: 97% Temperature: 36.6 (C ) / 97.8 (F) 12/24/2016 Blood Pressure 1: 134/78 Code: 8480-6 BMI: 37.2 Code: 95660-4 Heart Rate 1: 56 bpm Height: 5'10" SpO2: 98% Weight: 259 lbs 11/18/2016 Blood Pressure 1: 130/72 Code: 8480-6 BMI: 37.3 Code: 35919-5 Heart Rate 1: 70 bpm Height: 5'10" SpO2: 95% Weight: 260 lbs 06/24/2016 Blood Pressure 1: 134/80 Code: 8480-6 BMI: 38.3 Code: 59167-4 Heart Rate 1: 66 bpm Height: 5'10" SpO2: 98% Weight: 267 lbs 05/20/2016 Blood Pressure 1: 138/82 Code: 8480-6 BMI: 37.4 Code: 01355-3 Heart Rate 1: 65 bpm Height: 5'10" SpO2: 100% Weight: 261 lbs 05/09/2016 Blood Pressure 1: 154/78 Code: 8480-6 Heart Rate 1: 82 bpm Height: SpO2: 89% Temperature: 36.2 (C ) / 97.2 (F) Weight: 04/28/2016 Blood Pressure 1: 112/62 Code: 8480-6 BMI: 37.9 Code: 66471-1 Heart Rate 1: 73 bpm Height: 5'10" SpO2: 94% Temperature: 37.2 (C ) / 98.9 (F) Weight: 264 lbs 04/04/2016 Blood Pressure 1: 150/86 Code: 8480-6 Blood Pressure 1: 148/86 Code: 8480-6 Heart Rate 1: 71 bpm SpO2: 93% SpO2: 95% Temperature: 37.2 (C ) / 99.0 (F) 03/28/2016 Blood Pressure 1: 156/74 Code: 8480-6 BMI: 38.0 Code: 38329-8 Heart Rate 1: 84 bpm Height: 5'10" SpO2: 95% Weight: 265 lbs 02/13/2016 Blood Pressure 1: 118/62 Code: 8480-6 BMI: 39.2 Code: 97850-9 Heart Rate 1: 65 bpm Height: 5'10" SpO2: 96% Weight: 273 lbs 08/02/2015 Blood Pressure 1: 150/82 Code: 8480-6 BMI: 38.3 Code: 74591-3 Heart Rate 1: 75 bpm Height: 5'10" SpO2: 93% Weight: 267 lbs 06/22/2015 Blood Pressure 1: 138/80 Code: 8480-6 BMI: 38.7 Code: 60024-7 Heart Rate 1: 76 bpm Height: 5'10" SpO2: 96% Weight: 270 lbs 07/31/2014 Blood Pressure 1: 138/70 Code: 8480-6 BMI: 37.7 Code: 74254-5 Heart Rate 1: 70 bpm Height: 5'10" Respiratory Rate: 20 bpm Weight: 263 lbs 03/20/2014 Blood Pressure 1: 142/80 Code: 8480-6 BMI: 37.7 Code: 89481-8 Heart Rate 1: 64 bpm Height: 5'10" Weight: 263 lbs 03/01/2014 Blood Pressure 1: 150/90 Code: 8480-6 Blood Pressure 2: 140/80 Code: 8480-6 BMI: 37.3 Code: 02269-7 Heart Rate 1: 56 bpm Height: 5'10" [...] ongoing 06/24/2016 None Hospital Follow Up _ Oth er: dyspnea, hypoxemia, pneumonia 05/20/2016 None Hospital [...] ago 04/28/2016 None cough Location in the [facility] 04/04/2016 None cough Location in the [facility] 04/04/2016 None cough Quality acute 04/04/2016 [...] Encounters Encounter Performer Loca tion Codes Date ([id number]) [id number] EST. P CARLITOS, LEVEL III Diagnosis: Urinary tract infection, site not specified[ICD10: N39.0] Susu Camacho MD, [facility] CPT-4: 11192 09/02/2018 [id number]) 62617 EST. P CARLITOS, LEVEL III Diagnosis: Essential (primary) hypertension[ICD10: I10] Diagnosis: Cough[ICD10: R05] Diagnosis: Cellulitis of right finger[ICD10: L03.011] Diagnosis: Other allergic rhinitis[ICD10: J30.89] [facility] CPT-4: 33036 06/21/2018 [id number] EST. PATIENT, LEVEL III Diagnosis: Acute laryngopharyngitis[ICD10: J06.0] Diagnosis: Other allergic rhinitis[ICD10: J30.89] Diagnosis: Cough[ICD10: R05] [facility] CPT-4: 97631 05/14/2018 [id number] EST. PATIENT, LEVEL IV Diagnosis: Other acute sinusitis[ICD10: J01.80] Diagnosis: Other allergic rhinitis[ICD10: J30.89] Diagnosis: Cough[ICD10: R05] [facility] CPT-4: 10345 03/11/2018 [id number] EST. PATIENT, LEVEL IV Diagnosis: Other acute sinusitis[ICD10: J01.80] Diagnosis: Other allergic rhinitis[ICD10: J30.89] Lulu Camacho MD, [facility] CPT-4: 69588 02/10/2018 ([id number]) 73415 EST. P ATIENT, LEVEL IV Diagnosis: Essential (primary) hypertension[ICD10: I10] Diagnosis: Mixed hyperlipidemia[ICD10: E78.2] Diagnosis: Nonrheumatic aortic (valve) stenosis[ICD10: I35.0] Trina Camacho MD, [facility] CPT-4: 44327 12/23/2017 ([id number]) PER PM REEVA L EST PAT 65+ YR Diagnosis: Encounter for general adult medical examination with abnormal findings[ICD10: Z00.01] Trina Camacho MD, [facility] CPT-4: 34286 06/24/2017 ([id number]) Patient adm itted to the hospital from clinic (NO CHARGE) Diagnosis: [ICD9: ] Diagnosis: Essential (primary) hypertension[ICD10: I10] Diagnosis: Other allergic rhinitis[ICD10: J30.89] Diagnosis: Cough[ICD10: R05] Diagnosis: Mixed hyperlipidemia[ICD10: E78.2] Trina Camacho MD, [facility] CPT- 4: 52201B 06/24/2017 18231 EST. PATIENT, LEVEL IV Diagnosis: Other acute sinusitis[ICD10: J01.80] Diagnosis: Other allergic rhinitis[ICD10: J30.89] Lulu Camacho MD, [facility] CPT-4: 48612 03/17/2017 ([id number]) 01511 EST. P ATIENT, LEVEL IV Diagnosis: Essential (primary) hypertension[ICD10: I10] Diagnosis: Mixed hyperlipidemia[ICD10: E78.2] Trina Camacho MD, [facility] CPT- 4: 63316 12/24/2016 25522 EST. PATIENT, LEVEL IV Diagnosis: Acute bronchitis due to other specified organisms[ICD10: J20.8] Lulu Camacho MD, [facility] CPT-4: 32646 11/18/2016 ([id number]) 39448 EST. P ATIENT, LEVEL III Diagnosis: Essential (primary) hypertension[ICD10: I10] rTina Camacho MD, [facility] CPT-4: 89247 06/24/2016 ([id number]) 23264 EST. P ATIENT, LEVEL III Diagnosis: Essential (primary) hypertension[ICD10: I10] Diagnosis: Cough[ICD10: R05] Diagnosis: Candidal stomatitis[ICD10: B37.0] Trina Camacho MD, [facility] CPT-4: 58462 05/20/2016 ([id number]) Patient adm itted to the hospital from clinic (NO CHARGE) Diagnosis: Pneumonia, unspecified organism[ICD10: J18.9] Diagnosis: Cough[ICD10: R05] Trina Camacho MD, [facility] CPT-4: 20435W 05/09/2016 75804 EST. PATIENT, LEVEL III Diagnosis: Acute laryngopharyngitis[ICD10: J06.0] Diagnosis: Cough[ICD10: R05] Lulu Camacho MD, [facility] CPT-4: 07221 04/28/2016 ([id number]) 22560 EST. P ATIENT, LEVEL III Diagnosis: Cough[ICD10: R05] Diagnosis: Essential (primary) hypertension[ICD10: I10] Susu Camacho MD, [facility] CPT-4: 29217 04/04/2016 ([id number]) 67515 EST. P ATIENT, LEVEL III Diagnosis: Cough[ICD10: R05] Diagnosis: Pneumonia, unspecified organism[ICD10: J18.9] Susu Camacho MD, [facility] CPT-4: 94412 03/28/2016 92380 EST. PATIENT, LEVEL IV Diagnosis: Other allergic rhinitis[ICD10: J30.89] Diagnosis: Other acute sinusitis[ICD10: J01.80] [facility] CPT- 4: 66547 02/13/2016 67716 EST. PATIENT, LEVEL IV Diagnosis: Acute bronchitis due to other specified organisms[ICD10: J20.8] Diagnosis: Other acute sinusitis[ICD10: J01.80] Diagnosis: Other allergic rhinitis[ICD10: J30.89] [facility] CPT-4: 76007 08/02/2015 ([id number]) 54835 EST. P ATIENT, LEVEL IV Diagnosis: Essential (primary) hypertension[ICD10: I10] Diagnosis: Mixed hyperlipidemia[ICD10: E78.2] Diagnosis: Impaired fasting glucose[ICD10: R73.01] Susu Gene Camacho MD, [facility] CPT-4: 99487 06/22/2015 ([id number]) 35513 EST. P ATIENT, LEVEL IV Diagnosis: ESSENTIAL HYPERTENSION[ICD9: 401.9] Diagnosis: Aortic stenosis[ICD9: 424.1] Diagnosis: Hyperlipidemia[ICD9: 272.4] Trina Camacho MD, [facility] CPT-4: 57729 03/20/2014 ([id number]) OFFICE VISI Berhane [facility] - LEVEL 4 Diagnosis: ESSENTIAL HYPERTENSION[ICD9: 401.9] Diagnosis: DIABETES TYPE II[ICD9: 250.00] Diagnosis: Heart murmur[ICD9: 785.2] Diagnosis: Snoring[ICD9: 786.09] Diagnosis: Sleep-disordered breathing[ICD9: 780.59] Trina Camacho MD, [facility] CPT-4: 72555 03/01/2014 Plan of Care Planned Activity Notes [...] Summary Completed 09/02/2018 Appointment: Trina Camacho WPtel: [address] [place], [place] [id number] (15 min) Moderate 06/23/2018 Visit Plan: Hypertension [...] worse 06/21/2018 Appointment: Susu Mills WPtel: [facility] [place] [phone] [place] [address] (30 min) Complex 06/21/2018 Patient Education: Patient [...] allergy spray. 05/14/2018 Appointment: Lulu Mann WPtel: [facility]5 [facility] (15 min) Moderate 05/14/2018 Patient Education: [...] allergy spray. 03/11/2018 Appointment: Lulu Mann WPtel: [address] [place], [place] [id number] (15 min) Moderate 03/11/2018 Patient Education: [...] allergy spray. 02/10/2018 Appointment: Lulu Mann WPtel: [facility]5 [facility] (15 min) Moderate 02/10/2018 Patient Education: [...] increased activity 12/23/2017 Appointment: Trina Camacho WPtel: [facility] [place] (15 min) Moderate 12/23/2017 Patient Education: [...] inhales bid. 06/24/2017 Appointment: Trina Camacho WPtel: [address] [place], [place] [id number] (15 min) Moderate 06/24/2017 Patient Education: Patient [...] allergy spray. 03/17/2017 [phone] ([facility] min) Moderate 03/17/2017 Patient Education: Patient [...] medications. 12/24/2016 Appointment: [phone] [facility] (15 min) Moderate 12/24/2016 Patient Education: Patient [...] acutely worsen. 11/18/2016 [facility]ment[phone] (30 min) Complex 11/18/2016 Patient Education: Patient [...] home. 06/24/2016 Appointment: Trina Camacho WPtel: [phone] [facility] (15 min) Moderate 06/24/2016 Patient Education: Patient [...] and swallow 05/20/2016 Appointment: Trina Camacho WPtel: [facility]3 [facility] (15 min) Moderate 05/20/2016 Patient Education: Patient Medication Summary Completed 05/20/2016 Patient Education: Obesity Completed 05/20/2016 Patient Education: Hypertension Completed 05/20/2016 Visit Plan: PNEUMONIA - PT IS CLINI WESLY SYMPTOMATIC FOR PNEUMONIA - A CHEST XRAY, SPUTUM C AND S, BLOOD CULTURES, AND LABS HAVE BEEN ORDERED IN ORDER TO FURTHER WORK-UP THE ACUTE ILLNESS. 05/09/2016 Appointment: Susu Mills WPtel: [phone] [place] (15 min) Moderate 05/09/2016 Patient Education: Patient Medication Summary Completed 05/09/2016 Visit Plan: URI - Pt advised to inc rease fluids, vitamin C. Discussed natural and expected course of this diagnosis and need to alert me if symptoms do not follow expected course, or if any worse. RX sent to patient's pharmacy. 04/28/2016 Appointment: Lulu Mann WPtel: [phone] [facility] (15 min) Moderate 04/28/2016 Patient Education: [...] verbalized understanding. 04/04/2016 Appointment: Susu Mills WPtel: [phone] [phone] (10 min) Simple 04/04/2016 Patient Education: Patient Medication Summary Completed 04/04/2016 Patient Education: Hypertension Completed 04/04/2016 Visit Plan: Pneumonia-cough- improv ing-finish abx and call if symptoms do not completely resolved-patient verbalized understanding of plan. 03/28/2016 Appointment: Susu Mills WPtel: [phone] (30 min) Complex 03/28/2016 Patient Education: Patient Medication Summary Completed 03/28/2016 Patient Education: Obesity Completed 03/28/2016 Visit Plan: Cough-kenalog injection today-start abx as directed-f/u , sooner if needed 03/24/2016 Appointment: Susu Mills WPtel: [phone] (10 min) Simple 03/24/2016 Patient Education: Patient [...] show improvement. 02/13/2016 Appointment: Susu Mills WPtel: [phone] [place] [phone] (15 min) Moderate 02/13/2016 Patient Education: Patient [...] allergy spray. 08/02/2015 Appointment: Lulu Mann WPtel: [address] [place], [place] [phone] (15 min) Moderate 08/02/2015 Patient Education: Patient [...] Completed 08/03/2014 Visit Plan: Welcome to Medicare Ex m - today we discussed the patients [...] Patient Medication Summary Completed 07/31/2014 Patient Education: [facility] - Saving [employer] - Lisinopril - 18+ - Dynamic Portal ID Completed 07/31/2014 Visit Plan: OMW-ffrhyrws-gdiaz slig htly elevated-patient tolerated lisinopril 5mg BID well, did not tolerate 10mg daily in the past. Recommend he monitor blood pressure and pulse at home and bring in readings for review. Aortic Stenosis-recommend stress test-refer to Dr Avilez for evaluation Hyperlipidemia-continue statin medication-increase exercise and weight loss-low fat diet. Repeat labs in 3-6 months-Patient verbalized understanding of plan. 03/20/2014 Visit Plan: RFJ-kdqwmuwr-poihk slig htly elevated-patient tolerated lisinopril 5mg BID well, did not tolerate 10mg daily in the past. Recommend he monitor blood pressure and pulse at home and bring in readings for review. Aortic Stenosis-recommend stress test-refer to Dr Avilez for evaluation Hyperlipidemia-continue statin medication-increase exercise and weight loss-low fat diet. Repeat labs in 3-6 months-Patient verbalized understanding of plan. Daytime iuzaethkeyw-nusryfx-jreouaq-refer for sleep study 03/20/2014 Appointment: Follow up 03/20/2014 Patient Education: Patient Medication Summary Completed 03/20/2014 Care Plan: Referral Order SNOMED-CT : [id number] Ordered 03/20/2014 Visit Plan: Hypertension - uncontro [...] previous physician. 03/01/2014 Appointment: Trina Camacho WPtel: [address] [place], [place] [id number] [place] New Patient 03/01/2014 Patient Education: Patient Medication Summary Completed 03/01/2014 Patient Education: Hypertension Completed 03/01/2014 Referral: Dr Avilez Referral Initiated Instructions Comment . LHZ-zoftjmcf-szqtz slightly elevated-patient tolerated lisinopril 5mg BID well, did not tolerate 10mg daily in the past. Recommend he monitor blood pressure and pulse at home and bring in readings for review. Aortic Stenosis-recommend stress test-refer to Dr Avilez for evaluation Hyperlipidemia-continue statin medication-increase exercise and weight loss-low fat diet. Repeat labs in 3-6 months-Patient verbalized understanding of plan. . LEM-mdwdaekc-wilxs slightly elevated-patient tolerated lisinopril 5mg BID well, did not tolerate 10mg daily in the past. Recommend he monitor blood pressure and pulse at home and bring in readings for review. Aortic Stenosis-recommend stress test-refer to Dr Avilez for evaluation Hyperlipidemia-continue statin medication-increase exercise and weight loss-low fat diet. Repeat labs in 3-6 months-Patient verbalized understanding of plan. Daytime syeohsszdja-lwhbfqa-cfleyud-refer for sleep study . Sinusitis - Pt [...]
--- OUTSIDE RECORDS SUMMARY | 2019-03-16 12:35 | XMS REPORT | CCD ---
Author Author Farshad Camacho Organization Trina Camacho MD, [facility] Address [address] [place] [address] Phone Care Team Providers Care Marine Firer Name Role Phone PP Unavailable CCM Unavailable Summary Purpose Interface Exchange Insurance Providers Payer name Policy type / Coverage type Covered green party ID Effective Begin Date Effective End Date WPS Medicare Part B Medicare Part B [id number] Unknown Cigna Medicare Part B 80 [id number] Unknown Family history Brother Diagnosis Age At Onset lung cancer Unknown Alcoholism Unknown Mother Diagnosis Age At Onset Cancer Unknown Pancratic cancer Unknown Arthritis Unknown Father Diagnosis Age At Onset Alcoholism Unknown Social History Social History Element Codes Description Effective Dates Marital status Unknown M alberto Rice 03/01/2014 Number of children Unknown 3 and 3 step 03/01/[address]: 0230256 Former smoker quit 199603/01/2014 Allergies, Adverse Reactions, [...] Codes Condition Status Onset Date Resolved Date Cellulitis of right finger ICD-9: 681.00 ICD-10: [...] Condition Codes Effectiv e Dates Condition Status Cellulitis of right finger ICD-9: 681.00 ICD-10: [...] Instructions doxycycline hyclate 100 mg tablet RxNorm: 5312764 1 Tablet(s) PO BID 06/21/2018 06/27/2018 Active Kenalog 40 mg/mL [employer] pension for injection RxNorm: 1729725 Milliliter(s) Inj 06/21/2018 06/21/2018 In active Tamiflu 75 mg capsule RxNorm: 488113 1 Capsule(s) PO BID 05/14/2018 05/18/2018 Inactive Kenalog 40 mg/mL [employer]ell pension for injection RxNorm: 8891817 Milliliter(s) Inj 05/14/2018 05/14/2018 In active prednisone 10 mg tablet RxNorm: 610357 Tablet(s) PO UD 03/11/2018 06/20/2018 Inactive 60,50,40,30,20,10 Kenalog 40 mg/mL r[employer]ell pension for injection RxNorm: 4546051 1 Milliliter(s) Inj 03/11/2018 03/11/2018 In active Keflex 500 mg capsule RxNorm: 852662 1 Capsule(s) PO TID 03/11/2018 03/20/2018 Inactive Symbicort 160 mcg-4. 5 mcg/actuation HFA aerosol inhaler RxNorm: 7571054 2 Puff(s) INH BID 02/10/2018 No Stop Date Active Keflex 500 mg capsule RxNorm: 473403 1 Capsule(s) PO TID 02/10/2018 02/19/2018 Inactive prednisone 10 mg tablet RxNorm: 111593 Tablet(s) PO UD start on 11/1902/10/2018 03/09/2018 Inactive 60,50,40,30,20,10 Advair Diskus 250 mc g-50 mcg/dose powder for inhalation RxNorm: 9030620 1 Puff(s) INH BID 12/29/2017 No Stop Date Active Zithromax Z-Poncho 250 mg tablet RxNorm: 348184 1 Tablet(s) PO UD 12/29/2017 01/02/2018 Inactive zpack Tessalon Perles 100 mg capsule RxNorm: 160058 1-2 Capsule(s) PO TID as needed 12/29/2017 01/02/2018 In active allopurinol 300 mg t ablet RxNorm: 224494 Tablet(s) TAKE ONE TA BLET BY MOUTH ONCE DAILY 12/10/2017 No Stop Date Active Kenalog 40 mg/mL russell pension for injection RxNorm: 1909304 1.5 Milliliter(s) In j 12/03/2017 12/03/2017 In active allopurinol 300 mg t ablet RxNorm: 825992 TAKE ONE TABLET BY MO UTH ONCE DAILY 09/08/2017 12/09/2017 In active allopurinol 300 mg t ablet RxNorm: 616790 TAKE ONE TABLET BY MO UTH ONCE DAILY 06/15/2017 09/07/2017 In active Keflex 500 mg capsule RxNorm: 619164 1 Capsule(s) PO TID 05/04/2017 05/13/2017 Inactive Kenalog 40 mg/mL russell pension for injection RxNorm: 9844174 1 Milliliter(s) Inj 03/17/2017 03/17/2017 In active Keflex 500 mg capsule RxNorm: 923825 1 Capsule(s) PO TID 03/13/2017 03/12/2017 Inactive Keflex 500 mg capsule RxNorm: 585954 1 Capsule(s) PO TID 03/13/2017 03/22/2017 Inactive prednisone 10 mg tablet RxNorm: 113562 Tablet(s) PO UD start on 11/1911/18/2016 12/23/2016 Inactive 60,50,40,30,20,10 Advair Diskus 250 mc g-50 mcg/dose powder for inhalation RxNorm: 2935619 1 Puff(s) INH BID 11/18/2016 12/28/2017 Inactive doxycycline hyclate 100 mg capsule RxNorm: 1492497 1 Capsule(s) PO BID 11/18/2016 11/27/2016 In active Kenalog 40 mg/mL russell pension for injection RxNorm: 9737589 Milliliter(s) Inj 11/18/2016 11/18/2016 In active nystatin 100,000 uni t/mL oral suspension RxNorm: 713656 5 Milliliter(s) PO QI D 05/20/2016 05/29/2016 In active allopurinol 300 mg t ablet RxNorm: 926895 TAKE ONE TABLET BY MO UTH ONCE DAILY 05/11/2016 05/05/2017 In active Tessalon Perles 100 mg capsule RxNorm: 523908 1-2 Capsule(s) PO TID as needed 04/29/2016 05/03/2016 In active Prilosec OTC 20 mg t ablet,delayed release RxNorm: 425258 Tablet(s) PO 04/28/2016 11/16/2016 In active doxycycline hyclate 100 mg capsule RxNorm: 7606720 1 Capsule(s) PO BID 04/28/2016 05/07/2016 In active Tamiflu 75 mg capsule RxNorm: 141325 1 Capsule(s) PO BID 04/07/2016 04/11/2016 Inactive Tamiflu 75 mg capsule RxNorm: 494540 1 Capsule(s) PO BID 04/07/2016 04/06/2016 Inactive prednisone 20 mg tablet RxNorm: 179561 1 Tablet(s) PO BID 04/04/2016 04/08/2016 Inactive Kenalog 40 mg/mL russell pension for injection RxNorm: 7408937 1 Milliliter(s) Inj 03/24/2016 03/24/2016 In active cefdinir 300 mg capsule RxNorm: 949860 1 Capsule(s) PO BID 03/24/2016 03/30/2016 Inactive Zithromax Z-Poncho 250 mg tablet RxNorm: 649538 1 Tablet(s) PO UD 03/24/2016 03/28/2016 Inactive zpack cefdinir 300 mg capsule RxNorm: 850271 1 Capsule(s) PO BID 03/24/2016 03/23/2016 Inactive Flonase Allergy Reli ef 50 mcg/actuation nasal spray,suspension RxNorm: 5291985 1 [place] NASAL BID 02/13/2016 No Stop Date Active doxycycline hyclate 100 mg capsule RxNorm: 7997099 1 Capsule(s) PO BID 02/13/2016 02/19/2016 In active lisinopril 5 mg tablet RxNorm: 429237 1 Tablet(s) PO BID TAKE ONE TABLET BY [facility] TWICE DAILY 11/20/2015 05/12/2016 Inactive hold until patient calls fo r refill doxycycline hyclate 100 mg capsule RxNorm: 7345980 1 Capsule(s) PO BID 08/02/2015 08/08/2015 In active Kenalog 40 mg/mL russell pension for injection RxNorm: 5742454 Milliliter(s) Inj 08/02/2015 08/02/2015 In active lisinopril 5 mg tablet RxNorm: 538879 TAKE ONE TABLET BY MOUTH TWICE DAILY 06/11/2015 11/19/2015 In active allopurinol 300 mg t ablet RxNorm: 755167 1 Tablet(s) PO daily 05/08/2015 05/01/2016 Inactive lisinopril 5 mg tablet RxNorm: 898094 1 Tablet(s) PO BID 01/30/2015 05/29/2015 Inactive [AttnRPh: Saving apply/adjudicate RxGRP:SG20 RxBIN:[id number] RxPCN: ID#:[id number]] Zithromax Z-Poncho 250 mg tablet RxNorm: 943591 1 Tablet(s) PO UD 01/10/2015 03/23/2016 Inactive zpack allopurinol 300 mg t ablet RxNorm: 044803 1 Tablet(s) PO daily 10/31/2014 04/28/2015 Inactive lisinopril 5 mg tablet RxNorm: 162365 1 Tablet(s) PO BID 07/31/2014 11/27/2014 Inactive [AttnRPh: Saving apply/adjudicate RxGRP:SG20 RxBIN:[id number] RxPCN: ID#:[id number]] allopurinol 300 mg t ablet RxNorm: 222070 1 Tablet(s) PO daily 05/17/2014 10/30/2014 Inactive lisinopril 5 mg tablet RxNorm: 030476 1 Tablet(s) PO BID 03/01/2014 06/28/2014 Inactive [SAVINGS FOR UNINSURED PATIENTS -- BIN:[id number], PCN: [id number], Group: [id number], ID# [id number], Process claim through [employer], for questions: . THIS IS NOT INSURANCE.] Fish Oil 1,000 mg ca psule RxNorm: 3 Capsule(s) PO daily No Start Date Active B Complex 1 oral RxNorm: 26729 oral No Start Date Active Vitamin D3 1,000 uni t capsule RxNorm: 272277 2 Capsule(s) PO daily No Start Date Active Zyrtec 10 mg capsule RxNorm: 9208945 1 Capsule(s) PO daily No Start Date Active fenofibrate nanocrys tallized 48 mg tablet RxNorm: 951754 1 Tablet(s) PO daily No Start Date Active metoprolol tartrate 25 mg tablet RxNorm: 318788 1 Tablet(s) PO daily No Start Date Active multivitamin tablet RxNorm: 1 Tablet(s) PO daily No Start Date Active pravastatin 40 mg ta blet RxNorm: 901974 1 Tablet(s) PO daily No Start Date Active Tessalon Perles 100 mg capsule RxNorm: 363057 1-2 Capsule(s) PO TID as needed No Start Date 04/28/2016 Inactive allopurinol 300 mg t ablet RxNorm: 793578 1 Tablet(s) PO daily No Start Date 05/16/2014 Inactive metformin 500 mg tablet RxNorm: 038278 1 Tablet(s) PO BID No Start Date 02/14/2014 Inactive pioglitazone 15 mg t ablet RxNorm: 284396 1 Tablet(s) PO daily No Start Date 07/30/2014 Inactive lisinopril 5 mg tablet RxNorm: 271529 1 Tablet(s) PO daily No Start Date 02/28/2014 Inactive losartan 25 mg tablet RxNorm: 859620 1/2 Tablet(s) PO daily No Start Date 01/12/2018 Inactive Zithromax Z-Poncho 250 mg tablet RxNorm: 980818 1 Tablet(s) PO UD No Start Date 01/09/2015 Inactive zpack Medication Administered Medication Codes Instruc tions Start Date Status Kenalog 40 mg/mL suspension for injection RxNorm: 5050352 Milliliter 06/21/2018 No longer Active Kenalog 40 mg/mL suspension for injection RxNorm: 2594139 Milliliter 05/14/2018 No longer Active Kenalog 40 mg/mL suspension for injection RxNorm: 9893625 1Milliliter 03/11/2018 N o longer Active Kenalog 40 mg/mL suspension for injection RxNorm: 6825829 1.5Milliliter 12/03/2017 No longer Active Kenalog 40 mg/mL suspension for injection RxNorm: 1775029 1Milliliter 03/17/2017 N o longer Active Kenalog 40 mg/mL suspension for injection RxNorm: 2891646 Milliliter 11/18/2016 No longer Active Kenalog 40 mg/mL suspension for injection RxNorm: 9612653 1Milliliter 03/24/2016 N o longer Active Kenalog 40 mg/mL suspension for injection RxNorm: 3990295 Milliliter 08/02/2015 No longer Active Immunizations Vaccine Codes Date Status Influenza CVX: 141 12/18 completed Influenza CVX: 141 12/14 completed Pneumococcal CVX: 33 03/2012 completed Zoster CVX: 121 11/15/19 13 completed Assessments Condition Codes Effectiv e Dates Other allergic rhinitis ICD-10: J30. 89 ICD-9: [...] Reason For Visit Effective Dates Notes cough 06/21/2018 cough 05/14/2018 sinus congestion 03/11/2018 [...] Item Item Code Result Date Comp Metabolic Vdf517 NA 138 mEq/L 06/22/2018 Comp Metabolic Wgf140 K 4.3 mEq/L 06/22/2018 Comp Metabolic Voh689 CL 102 mEq/L 06/22/2018 Comp Metabolic Xmb309 CO2 29.0 mEq/L 06/22/2018 Comp Metabolic Nfb350 AN ION GAP 11 06/22/2018 Comp Metabolic Myq686 GL UCOSE 89 mg/dL 06/22/2018 Comp Metabolic Kem924 Cr eat 1.3 mg/dL 06/22/2018 Comp Metabolic Oxt256 eG FR 59 ml/min/1.73m2 06/22 Comp Metabolic Qeb124 BUN 21 mg/dL 06/22/2018 Comp Metabolic Lxc287 B/ C Ratio 16.4 Ratio 06/22/2018 Comp Metabolic Dal602 CA LCIUM 8.8 mg/dL 06/22/2018 Comp Metabolic Gim930 AL K PHOS 70 U/L 06/22/2018 Comp Metabolic Aui118 T(SGOT) 26 U/L 06/22/2018 Comp Metabolic Ako472 AL T(SGPT) 21 U/L 06/22/2018 Comp Metabolic Xon008 BI LI T 0.6 mg/dL 06/22/2018 Comp Metabolic Dxk134 AL BUMIN 3.9 g/dL 06/22/2018 Comp Metabolic Faa294 TP RO 6.7 g/dL 06/22/2018 Comp Metabolic Uqi642 GL OB 2.8 g/dL 06/22/2018 Comp Metabolic Mrw676 A/ G Ratio 1.4 Ratio 06/22/2018 Comp Metabolic Ezf217 Os mo 278 mOsmo 06/22/2018 Cbc With [...] 32.7 pg 06/22/2018 Cbc With Differential Ord2 [place]% 11.0 % 06/22/2018 Cbc With Differential Ord2 [...] 1.49 K/ul 06/22/2018 Cbc With Differential Ord2 [place] ABS# 0.8 K/ul 06/22/2018 Cbc With Differential Ord2 Eos ABS# 0.2 K/ul 06/22/2018 Cbc With Differential Ord2 Baso ABS# 0.0 K/ul 06/22/2018 Lipid Ord30 CHOL 161 mg/dL 06/09/2018 Lipid Ord30 HDL 41.0 mg/dl 06/09/2018 Lipid Ord30 TRIG 122 mg/dL 06/09/2018 Lipid Ord30 LDL 96 mg/dL 06/09/2018 Lipid Ord30 C/HDL 3.9 Ratio 06/09/2018 Comp Metabolic Arj504 NA 141 mEq/L 06/09/2018 Comp Metabolic Rav087 K 4.4 mEq/L 06/09/2018 Comp Metabolic Dou740 CL 105 mEq/L 06/09/2018 Comp Metabolic Uza475 CO2 27.0 mEq/L 06/09/2018 Comp Metabolic Znd305 AN ION GAP 13 06/09/2018 Comp Metabolic Fqg030 GL UCOSE 118 mg/dL 06/09/2018 Comp Metabolic Krm557 Cr eat 1.4 mg/dL 06/09/2018 Comp Metabolic Wwv197 eG FR 54 ml/min/1.73m2 06/09 Comp Metabolic Tls372 BUN 15 mg/dL 06/09/2018 Comp Metabolic Ofh021 B/ C Ratio 10.8 Ratio 06/09/2018 Comp Metabolic Pft231 CA LCIUM 9.0 mg/dL 06/09/2018 Comp Metabolic Xrm246 AL K PHOS 77 U/L 06/09/2018 Comp Metabolic Iim978 T(SGOT) 24 U/L 06/09/2018 Comp Metabolic Uyh691 AL T(SGPT) 32 U/L 06/09/2018 Comp Metabolic Nvh574 BI LI T 0.6 mg/dL 06/09/2018 Comp Metabolic Ksy146 AL BUMIN 4.0 g/dL 06/09/2018 Comp Metabolic Mcw944 TP RO 6.9 g/dL 06/09/2018 Comp Metabolic Oia489 GL OB 3.0 g/dL 06/09/2018 Comp Metabolic Rxc136 A/ G Ratio 1.3 Ratio 06/09/2018 Comp Metabolic Bde965 Os mo 283 mOsmo 06/09/2018 Comp Metabolic Viy833 NA 136 mEq/L 12/22/2017 Comp Metabolic Nkj053 K 4.2 mEq/L 12/22/2017 Comp Metabolic Ofi551 CL 105 mEq/L 12/22/2017 Comp Metabolic Sor822 CO2 30.0 mEq/L 12/22/2017 Comp Metabolic Cmt456 AN ION GAP 5 12/22/2017 Comp Metabolic Goj976 GL UCOSE 85 mg/dL 12/22/2017 Comp Metabolic Hpp255 Cr eat 1.2 mg/dL 12/22/2017 Comp Metabolic Dlx274 eG FR 62 ml/min/1.73m2 12/22 Comp Metabolic Oqm301 BUN 17 mg/dL 12/22/2017 Comp Metabolic Vyo426 B/ C Ratio 13.9 Ratio 12/22/2017 Comp Metabolic Vmc059 CA LCIUM 9.3 mg/dL 12/22/2017 Comp Metabolic Shh526 AL K PHOS 78 U/L 12/22/2017 Comp Metabolic Lba697 T(SGOT) 24 U/L 12/22/2017 Comp Metabolic Vyn283 AL T(SGPT) 28 U/L 12/22/2017 Comp Metabolic Iyq254 BI LI T 0.5 mg/dL 12/22/2017 Comp Metabolic Ryz985 AL BUMIN 4.0 g/dL 12/22/2017 Comp Metabolic Wrd897 TP RO 6.6 g/dL 12/22/2017 Comp Metabolic Ebt243 GL OB 2.6 g/dL 12/22/2017 Comp Metabolic Bjo512 A/ G Ratio 1.6 Ratio 12/22/2017 Comp Metabolic Jyv702 Os mo 273 mOsmo 12/22/2017 Cbc With [...] 31.9 pg 12/22/2017 Cbc With Differential Ord2 [place]% 6.3 % 12/22/2017 Cbc With Differential Ord2 [...] 1.92 K/ul 12/22/2017 Cbc With Differential Ord2 [place] ABS# 0.6 K/ul 12/22/2017 Cbc With Differential Ord2 Eos ABS# 0.3 K/ul 12/22/2017 Cbc With Differential Ord2 Baso ABS# 0.0 K/ul 12/22/2017 Comp Metabolic Dqm046 NA 135 mEq/L 06/22/2017 Comp Metabolic Vjf829 K 4.2 mEq/L 06/22/2017 Comp Metabolic Ycp620 CL 101 mEq/L 06/22/2017 Comp Metabolic Oub502 CO2 27.0 mEq/L 06/22/2017 Comp Metabolic Own536 AN ION GAP 11 06/22/2017 Comp Metabolic Osp423 GL UCOSE 89 mg/dL 06/22/2017 Comp Metabolic Icj631 Cr eat 1.5 mg/dL 06/22/2017 Comp Metabolic Udl687 eG FR 51 ml/min/1.73m2 06/22 Comp Metabolic Tvr706 BUN 16 mg/dL 06/22/2017 Comp Metabolic Jtp914 B/ C Ratio 11.0 Ratio 06/22/2017 Comp Metabolic Ppt291 CA LCIUM 8.9 mg/dL 06/22/2017 Comp Metabolic Abp447 AL K PHOS 79 U/L 06/22/2017 Comp Metabolic Hyf580 T(SGOT) 26 U/L 06/22/2017 Comp Metabolic Uel056 AL T(SGPT) 26 U/L 06/22/2017 Comp Metabolic Eos514 BI LI T 0.4 mg/dL 06/22/2017 Comp Metabolic Frj657 AL BUMIN 4.1 g/dL 06/22/2017 Comp Metabolic Rnx526 TP RO 6.9 g/dL 06/22/2017 Comp Metabolic Hpl050 GL OB 2.8 g/dL 06/22/2017 Comp Metabolic Fyo978 A/ G Ratio 1.5 Ratio 06/22/2017 Comp Metabolic Tyj565 Os mo 271 mOsmo 06/22/2017 Cbc With [...] 32.6 pg 06/22/2017 Cbc With Differential Ord2 [place]% 7.9 % 06/22/2017 Cbc With Differential Ord2 [...] 2.14 K/ul 06/22/2017 Cbc With Differential Ord2 [place] ABS# 0.8 K/ul 06/22/2017 Cbc With Differential [...] 33.2 pg 12/25/2015 Cbc With Differential Ord2 [place]% 7.6 % 12/25/2015 Cbc With Differential Ord2 [...] 1.86 K/ul 12/25/2015 Cbc With Differential Ord2 [place] ABS# 0.6 K/ul 12/25/2015 Cbc With Differential Ord2 Eos ABS# 0.2 K/ul 12/25/2015 Cbc With Differential Ord2 Baso ABS# 0.1 K/ul 12/25/2015 Comp Metabolic Inq072 NA 136 mEq/L 12/25/2015 Comp Metabolic Qrm561 K 4.2 mEq/L 12/25/2015 Comp Metabolic Ujy178 CL 104 mEq/L 12/25/2015 Comp Metabolic Obb859 CO2 26.0 mEq/L 12/25/2015 Comp Metabolic Owb811 AN ION GAP 10 12/25/2015 Comp Metabolic Bfn038 GL UCOSE 104 mg/dL 12/25/2015 Comp Metabolic Ele909 Cr eat 1.3 mg/dL 12/25/2015 Comp Metabolic Mzi738 eG FR 59 ml/min/1.73m2 12/24 Comp Metabolic Tuv871 BUN 23 mg/dL 12/25/2015 Comp Metabolic Sor613 B/ C Ratio 18.0 Ratio 12/25/2015 Comp Metabolic Cup023 CA LCIUM 9.1 mg/dL 12/25/2015 Comp Metabolic Ugz909 AL K PHOS 76 U/L 12/25/2015 Comp Metabolic Rdm690 T(SGOT) 30 U/L 12/25/2015 Comp Metabolic Olt233 AL T(SGPT) 28 U/L 12/25/2015 Comp Metabolic Mgf831 BI LI T 0.3 mg/dL 12/25/2015 Comp Metabolic Ini864 AL BUMIN 4.0 g/dL 12/25/2015 Comp Metabolic Wyd619 TP RO 6.6 g/dL 12/25/2015 Comp Metabolic Voe015 GL OB 2.6 g/dL 12/25/2015 Comp Metabolic Omy365 A/ G Ratio 1.5 Ratio 12/25/2015 Comp Metabolic Kfi806 Os mo 276 mOsmo 12/25/2015 Cbc With [...] 32.4 pg 06/25/2015 Cbc With Differential Ord2 [place]% 7.1 % 06/25/2015 Cbc With Differential Ord2 [...] 2.18 K/ul 06/25/2015 Cbc With Differential Ord2 [place] ABS# 0.7 K/ul 06/25/2015 Cbc With Differential Ord2 Eos ABS# 0.2 K/ul 06/25/2015 Cbc With Differential Ord2 Baso ABS# 0.0 K/ul 06/25/2015 Cbc With Differential Ord2 New Analyzer Notice Please note new ref ranges s tarting 03-28-2015 due to implemntation of new five part differential hematolgy analyzer. 06/25/2015 %Hba1C Rei565 % HbA1c 19857-6 6.1 % 06/25/2015 %Hba1C Ouy026 Gluc Ave 128 mg/dL 06/25/2015 Comp Metabolic Jtm466 NA 135 mEq/L 06/25/2015 Comp Metabolic Djd686 K 4.3 mEq/L 06/25/2015 Comp Metabolic Rku380 CL 102 mEq/L 06/25/2015 Comp Metabolic Kxw592 CO2 26.0 mEq/L 06/25/2015 Comp Metabolic Obt604 AN ION GAP 11 06/25/2015 Comp Metabolic Jhv254 GL UCOSE 81 mg/dL 06/25/2015 Comp Metabolic Tkb770 Cr eat 1.5 mg/dL 06/25/2015 Comp Metabolic Nat946 eG FR 49 ml/min/1.73m2 06/24 Comp Metabolic Tgw547 BUN 20 mg/dL 06/25/2015 Comp Metabolic Uvv741 B/ C Ratio 13.2 Ratio 06/25/2015 Comp Metabolic Npq133 CA LCIUM 9.5 mg/dL 06/25/2015 Comp Metabolic Fqa227 AL K PHOS 65 U/L 06/25/2015 Comp Metabolic Cve076 T(SGOT) 25 U/L 06/25/2015 Comp Metabolic Pwq672 AL T(SGPT) 29 U/L 06/25/2015 Comp Metabolic Tjd707 BI LI T 0.4 mg/dL 06/25/2015 Comp Metabolic Xhi863 AL BUMIN 4.4 g/dL 06/25/2015 Comp Metabolic Thj047 TP RO 7.3 g/dL 06/25/2015 Comp Metabolic Yrj762 GL OB 3.0 g/dL 06/25/2015 Comp Metabolic Jdy177 A/ G Ratio 1.5 Ratio 06/25/2015 Comp Metabolic Hzd841 Os mo 272 mOsmo 06/25/2015 Tsh Ord6 hTSH II 3.03 uIU/mL 06/25/2015 Lipid Ord30 CHOL 150 mg/dL 06/22/2015 Lipid Ord30 HDL 34.0 mg/dl 06/22/2015 Lipid Ord30 TRIG 149 mg/dL 06/22/2015 Lipid Ord30 LDL 86 mg/dL 06/22/2015 Lipid Ord30 C/HDL 4.4 Ratio 06/22/2015 Hepatic Gnc510 ALBUMIN 4.3 g/dL 06/22/2015 Hepatic Eqz265 TPRO 7.0 g/dL 06/22/2015 Hepatic Hvz856 GLOB 2.8 g/dL 06/22/2015 Hepatic Umh814 A/G Ratio 1.5 Ratio 06/22/2015 Hepatic Tcn733 ALK PHOS 65 U/L 06/22/2015 Hepatic Shf747 ALT(SGPT) 33 U/L 06/22/2015 Hepatic Fos904 AST(SGOT) 28 U/L 06/22/2015 Hepatic Wxy497 BILI T 0.5 mg/dL 06/22/2015 Hepatic Sbq417 BILI D 0.1 mg/dL 06/22/2015 Hepatic Vgr729 BILI I 0.4 mg/dL 06/22/2015 Review of Systems System Result Effective Dates Constitutional recent illness 06/21/2018 Constitutional No anorexia [...] from tympanostomy tube Full Exam - General 1995 Ears/Nose/Throat lips/teeth/gingiva Overall: benign lips 05/20/2016 None [...] CPT-4: J3301 06/21/2018 THER/PROPH/DIAG INJ SC/IM CPT-4: 05904 05/14/2018 TRIAMCINOLONE ACET I [place] NOS CPT-4: J3301 05/14/2018 TRIAMCINOLONE ACET I [place] NOS CPT-4: J3301 03/11/2018 THER/PROPH/DIAG INJ SC/IM CPT-4: 01644 03/11/2018 PPPS, SUBSEQ VISIT CPT- 4: G0439 01/13/2018 TRIAMCINOLONE ACET I [place] NOS CPT-4: J3301 12/03/2017 THER/PROPH/DIAG INJ SC/IM CPT-4: 97723 12/03/2017 TRIAMCINOLONE ACET I [place] NOS CPT-4: J3301 06/24/2017 TRIAMCINOLONE ACET I [place] NOS CPT-4: J3301 03/17/2017 TRIAMCINOLONE ACET I [place] NOS CPT-4: J3301 11/18/2016 TRIAMCINOLONE ACET I [place] NOS CPT-4: J3301 03/24/2016 THER/PROPH/DIAG INJ SC/IM CPT-4: 99178 03/24/2016 TRIAMCINOLONE ACET I [place] NOS CPT-4: J3301 08/02/2015 OCCULT BLOOD FECES CPT- 4: 33168 08/03/2014 INITIAL PREVENTIVE EXAM CPT-4: G0402 07/31/2014 Vital Signs Date Vital 06/21/2018 Blood Pressure 1: 130/80 Code: 8480-6 Heart Rate 1: 94 bpm Height: 5'10" SpO2: 95% Weight: 05/14/2018 Blood Pressure 1: 144/84 Code: 8480-6 Heart Rate 1: 70 bpm Height: SpO2: 95% Weight: 03/11/2018 Blood Pressure 1: 134/76 Code: 8480-6 BMI: 35.7 Code: 17443-0 Heart Rate 1: 60 bpm Height: 5'10" SpO2: 96% Weight: 249 lbs 02/10/2018 Blood Pressure 1: 140/72 Code: 8480-6 BMI: 33.7 Code: 81061-5 Heart Rate 1: 48 bpm Height: 5'10" SpO2: 95% Temperature: 36.6 (C ) / 97.8 (F) Weight: 235 lbs 01/13/2018 Blood Pressure 1: 118/66 Code: 8480-6 BMI: 33.3 Code: 19134-2 Heart Rate 1: 57 bpm Height: 5'10" SpO2: 98% Waist Measure (cm): 97 cm Weight: 232 lbs 12/23/2017 Blood Pressure 1: 120/62 Code: 8480-6 BMI: 33.7 Code: 56404-0 Heart Rate 1: 58 bpm Height: 5'10" SpO2: 96% Weight: 235 lbs 06/24/2017 Blood Pressure 1: 136/74 Code: 8480-6 BMI: 38.7 Code: 99565-4 Heart Rate 1: 75 bpm Height: 5'10" SpO2: 98% Weight: 270 lbs 03/17/2017 Blood Pressure 1: 138/78 Code: 8480-6 Heart Rate 1: 65 bpm SpO2: 97% Temperature: 36.6 (C ) / 97.8 (F) 12/24/2016 Blood Pressure 1: 134/78 Code: 8480-6 BMI: 37.2 Code: 19609-7 Heart Rate 1: 56 bpm Height: 5'10" SpO2: 98% Weight: 259 lbs 11/18/2016 Blood Pressure 1: 130/72 Code: 8480-6 BMI: 37.3 Code: 81549-0 Heart Rate 1: 70 bpm Height: 5'10" SpO2: 95% Weight: 260 lbs 06/24/2016 Blood Pressure 1: 134/80 Code: 8480-6 BMI: 38.3 Code: 88412-1 Heart Rate 1: 66 bpm Height: 5'10" SpO2: 98% Weight: 267 lbs 05/20/2016 Blood Pressure 1: 138/82 Code: 8480-6 BMI: 37.4 Code: 97686-7 Heart Rate 1: 65 bpm Height: 5'10" SpO2: 100% Weight: 261 lbs 05/09/2016 Blood Pressure 1: 154/78 Code: 8480-6 Heart Rate 1: 82 bpm Height: SpO2: 89% Temperature: 36.2 (C ) / 97.2 (F) Weight: 04/28/2016 Blood Pressure 1: 112/62 Code: 8480-6 BMI: 37.9 Code: 42151-7 Heart Rate 1: 73 bpm Height: 5'10" SpO2: 94% Temperature: 37.2 (C ) / 98.9 (F) Weight: 264 lbs 04/04/2016 Blood Pressure 1: 150/86 Code: 8480-6 Blood Pressure 1: 148/86 Code: 8480-6 Heart Rate 1: 71 bpm SpO2: 93% SpO2: 95% Temperature: 37.2 (C ) / 99.0 (F) 03/28/2016 Blood Pressure 1: 156/74 Code: 8480-6 BMI: 38.0 Code: 27181-8 Heart Rate 1: 84 bpm Height: 5'10" SpO2: 95% Weight: 265 lbs 02/13/2016 Blood Pressure 1: 118/62 Code: 8480-6 BMI: 39.2 Code: 32871-2 Heart Rate 1: 65 bpm Height: 5'10" SpO2: 96% Weight: 273 lbs 08/02/2015 Blood Pressure 1: 150/82 Code: 8480-6 BMI: 38.3 Code: 51524-6 Heart Rate 1: 75 bpm Height: 5'10" SpO2: 93% Weight: 267 lbs 06/22/2015 Blood Pressure 1: 138/80 Code: 8480-6 BMI: 38.7 Code: 26512-8 Heart Rate 1: 76 bpm Height: 5'10" SpO2: 96% Weight: 270 lbs 07/31/2014 Blood Pressure 1: 138/70 Code: 8480-6 BMI: 37.7 Code: 75328-4 Heart Rate 1: 70 bpm Height: 5'10" Respiratory Rate: 20 bpm Weight: 263 lbs 03/20/2014 Blood Pressure 1: 142/80 Code: 8480-6 BMI: 37.7 Code: 09509-2 Heart Rate 1: 64 bpm Height: 5'10" Weight: 263 lbs 03/01/2014 Blood Pressure 1: 150/90 Code: 8480-6 Blood Pressure 2: 140/80 Code: 8480-6 BMI: 37.3 Code: 23536-3 Heart Rate 1: 56 bpm Height: 5'10" Weight: 260 lbs Functional Status No Functional Status data History of Present Illness Symptom Name Status Resu lt Effective Date Notes Location in the throat 06/21/2018 None Quality [...] Factors diet 12/23/2017 None hypertension Quality main akanksha hypertension 06/24/2017 None hypertension Onset and Resolution [...] resolved 05/20/2016 None cough Location in the ro 05/09/2016 None cough Quality constant 05/09/2016 None [...] Encounters Encounter Performer Loca tion Codes Date () [id number] EST. P ATIENT, LEVEL III Diagnosis: Essential (primary) hypertension[ICD10: I10] Diagnosis: Cough[ICD10: R05] Diagnosis: Cellulitis of right finger[ICD10: L03.011] Diagnosis: Other allergic rhinitis[ICD10: J30.89] [facility] CPT-4: 15114 06/21/2018 [id number] EST. PATIENT, LEVEL III Diagnosis: Acute laryngopharyngitis[ICD10: J06.0] Diagnosis: Other allergic rhinitis[ICD10: J30.89] Diagnosis: Cough[ICD10: R05] [facility] CPT-4: 96668 05/14/2018 [id number] EST. PATIENT, LEVEL IV Diagnosis: Other acute sinusitis[ICD10: J01.80] Diagnosis: Other allergic rhinitis[ICD10: J30.89] Diagnosis: Cough[ICD10: R05] Lulu Camacho MD, [facility] CPT-4: 01046 03/11/2018 [id number] EST. PATIENT, LEVEL IV Diagnosis: Other acute sinusitis[ICD10: J01.80] Diagnosis: Other allergic rhinitis[ICD10: J30.89] Lulu Camacho MD, [facility] CPT-4: 17123 02/10/2018 ([id number]) [id number] EST. P ATIENT, LEVEL IV Diagnosis: Essential (primary) hypertension[ICD10: I10] Diagnosis: Mixed hyperlipidemia[ICD10: E78.2] Diagnosis: Nonrheumatic aortic (valve) stenosis[ICD10: I35.0] Trina Camacho MD, [facility] CPT-4: 35678 12/23/2017 ([id number]) PER PM REEVA L EST PAT 65+ YR Diagnosis: Encounter for general adult medical examination with abnormal findings[ICD10: Z00.01] Trina Camacho MD, [facility] CPT-4: 10110 06/24/2017 ([id number]) Patient adm itted to the hospital from clinic (NO CHARGE) Diagnosis: [ICD9: ] Diagnosis: Essential (primary) hypertension[ICD10: I10] Diagnosis: Other allergic rhinitis[ICD10: J30.89] Diagnosis: Cough[ICD10: R05] Diagnosis: Mixed hyperlipidemia[ICD10: E78.2] Trina Camacho MD, [facility] CPT- 4: 39282Y 06/24/2017 17296 EST. PATIENT, LEVEL IV Diagnosis: Other acute sinusitis[ICD10: J01.80] Diagnosis: Other allergic rhinitis[ICD10: J30.89] Lulu Camacho MD, [facility] CPT-4: 61377 03/17/2017 ([id number]) 59962 EST. P ATIENT, LEVEL IV Diagnosis: Essential (primary) hypertension[ICD10: I10] Diagnosis: Mixed hyperlipidemia[ICD10: E78.2] Trina Camacho MD, [facility] CPT- 4: 37652 12/24/2016 22176 EST. PATIENT, LEVEL IV Diagnosis: Acute bronchitis due to other specified organisms[ICD10: J20.8] Lulu Camacho MD, [facility] CPT-4: 74106 11/18/2016 ([id number]) 31857 EST. P ATIENT, LEVEL III Diagnosis: Essential (primary) hypertension[ICD10: I10] Trina Camacho MD, [facility] CPT-4: 49130 06/24/2016 ([id number]) 52733 EST. P ATIENT, LEVEL III Diagnosis: Essential (primary) hypertension[ICD10: I10] Diagnosis: Cough[ICD10: R05] Diagnosis: Candidal stomatitis[ICD10: B37.0] Trina Camacho MD, [facility] CPT-4: 79280 05/20/2016 ([id number]) Patient adm itted to the hospital from clinic (NO CHARGE) Diagnosis: Pneumonia, unspecified organism[ICD10: J18.9] Diagnosis: Cough[ICD10: R05] Trina Camacho MD, [facility] CPT-4: 55112A 05/09/2016 61688 EST. PATIENT, LEVEL III Diagnosis: Acute laryngopharyngitis[ICD10: J06.0] Diagnosis: Cough[ICD10: R05] Lulu Camacho MD, [facility] CPT-4: 25541 04/28/2016 ([id number]) 43365 EST. P ATIENT, LEVEL III Diagnosis: Cough[ICD10: R05] Diagnosis: Essential (primary) hypertension[ICD10: I10] Susu Camacho MD, [facility] CPT-4: 90283 04/04/2016 ([id number]) 18135 EST. P ATIENT, LEVEL III Diagnosis: Cough[ICD10: R05] Diagnosis: Pneumonia, unspecified organism[ICD10: J18.9] [facility] CPT-4: 86911 03/28/2016 51027 EST. PATIENT, LEVEL IV Diagnosis: Other allergic rhinitis[ICD10: J30.89] Diagnosis: Other acute sinusitis[ICD10: J01.80] [facility] CPT- 4: 18680 02/13/2016 73801 EST. PATIENT, LEVEL IV Diagnosis: Acute bronchitis due to other specified organisms[ICD10: J20.8] Diagnosis: Other acute sinusitis[ICD10: J01.80] Diagnosis: Other allergic rhinitis[ICD10: J30.89] Lulu Camacho MD, [facility] CPT-4: 10664 08/02/2015 ([id number]) 41298 EST. P ATIENT, LEVEL IV Diagnosis: Essential (primary) hypertension[ICD10: I10] Diagnosis: Mixed hyperlipidemia[ICD10: E78.2] Diagnosis: Impaired fasting glucose[ICD10: R73.01] Susu Camacho MD, [facility] CPT-4: 44607 06/22/2015 ([id number]) 58193 EST. P ATIENT, LEVEL IV Diagnosis: ESSENTIAL HYPERTENSION[ICD9: 401.9] Diagnosis: Aortic stenosis[ICD9: 424.1] Diagnosis: Hyperlipidemia[ICD9: 272.4] Trina Camacho MD, [facility] CPT-4: 20642 03/20/2014 ([id number]) OFFICE [facility] - LEVEL 4 Diagnosis: ESSENTIAL HYPERTENSION[ICD9: 401.9] Diagnosis: DIABETES TYPE II[ICD9: 250.00] Diagnosis: Heart murmur[ICD9: 785.2] Diagnosis: Snoring[ICD9: 786.09] Diagnosis: Sleep-disordered breathing[ICD9: 780.59] Trina Camacho MD, [facility] CPT-4: 58685 03/01/2014 Plan of Care Planned Activity Notes C odes Status Date Visit Plan: Hypertension - well con trolled [...] any worse 06/21/2018 Appointment: Susu Mills WPtel: [address] [place] [address] (30 min) Complex 06/21/2018 Patient Education: Patient [...] allergy spray. 05/14/2018 Appointment: Lulu Mann WPtel: [facility]6 [facility]66[facility] (15 min) Moderate 05/14/2018 Patient Education: [...] allergy spray. 03/11/2018 Appointment: Lulu Mann WPtel: [facility]1 [facility] (15 min) Moderate 03/11/2018 Patient Education: Patient [...] allergy spray. 02/10/2018 Appointment: Lulu Mann WPtel: [address] [place], [place] [phone] (15 min) Moderate 02/10/2018 Patient Education: Patient [...] activity 12/23/2017 Appointment: [phone] [facility] [place] (15 min) Moderate 12/23/2017 Patient [...] inhales bid. 06/24/2017 Appointment: Trina Camacho WPtel: [facility]3 [facility]66[facility] (15 min) Moderate 06/24/2017 Patient Education: Patient [...] allergy spray. 03/17/2017 Appointment: Lulu Mann WPtel: [facility]2 [facility] (15 min) Moderate 03/17/2017 Patient Education: Patient [...] medications. 12/24/2016 Appointment: Trina Camacho WPtel: [phone] [facility] (15 min) Moderate 12/24/2016 Patient Education: Patient [...] acutely worsen. 11/18/2016 Appointment: Lulu Mann WPtel: [facility]4 [facility] (30 min) Complex 11/18/2016 Patient Education: Patient [...] at home. 06/24/2016 Appointment: Trina Camacho WPtel: [phone] [facility] (15 min) Moderate 06/24/2016 Patient Education: [...] and swallow 05/20/2016 Appointment: [phone] [facility] (15 min) Moderate 05/20/2016 Patient Education: Patient Medication Summary Completed 05/20/2016 Patient Education: Obesity Completed 05/20/2016 Patient Education: Hypertension Completed 05/20/2016 Visit Plan: PNEUMONIA - PT IS CLINI WESLY SYMPTOMATIC FOR PNEUMONIA - A CHEST XRAY, SPUTUM C AND S, BLOOD CULTURES, AND LABS HAVE BEEN ORDERED IN ORDER TO FURTHER WORK-UP THE ACUTE ILLNESS. 05/09/2016 Appointment: Susu Mills WPtel: [phone] [phone] (15 min) Moderate 05/09/2016 Patient Education: Patient Medication Summary Completed 05/09/2016 Visit Plan: URI - Pt advised to inc rease fluids, vitamin C. Discussed natural and expected course of this diagnosis and need to alert me if symptoms do not follow expected course, or if any worse. RX sent to patient's pharmacy. 04/28/2016 Appointment: [phone] (15 min) Moderate 04/28/2016 Patient Education: Patient [...] understanding. 04/04/2016 Appointment: Susu Mills WPtel: [phone] [phone] [place] (10 min) Simple 04/04/2016 Patient Education: Patient Medication Summary Completed 04/04/2016 Patient Education: Hypertension Completed 04/04/2016 Visit Plan: Pneumonia-cough- improv ing-finish abx and call if symptoms do not completely resolved-patient verbalized understanding of plan. 03/28/2016 Appointment: Susu Mills WPtel: [phone]66[facility] (30 min) Complex 03/28/2016 Patient Education: Patient Medication Summary Completed 03/28/2016 Patient Education: Obesity Completed 03/28/2016 Visit Plan: Cough-kenalog injection today-start abx as directed-f/u , sooner if needed 03/24/2016 Appointment: Susu Mills WPtel: [phone] (10 min) Simple 03/24/2016 Patient Education: Patient [...] show improvement. 02/13/2016 Appointment: Susu Mills WPtel: [facility] [address] (15 min) Moderate 02/13/2016 Patient Education: Patient [...] allergy spray. 08/02/2015 Appointment: Lulu Mann WPtel: [address] [place], [place] [address] (15 min) Moderate 08/02/2015 Patient Education: Patient [...] Patient Medication Summary Completed 07/31/2014 Patient Education: [facility] - Saving [employer] - Lisinopril - 18+ - Dynamic Portal ID Completed 07/31/2014 Visit Plan: XFU-xoxlppix-iwxee slig htly elevated-patient tolerated lisinopril 5mg BID well, did not tolerate 10mg daily in the past. Recommend he monitor blood pressure and pulse at home and bring in readings for review. Aortic Stenosis-recommend stress test-refer to Dr Avilez for evaluation Hyperlipidemia-continue statin medication-increase exercise and weight loss-low fat diet. Repeat labs in 3-6 months-Patient verbalized understanding of plan. Daytime lnljcnaukut-hzmoyor-eyujijk-refer for sleep study 03/20/2014 Visit Plan: GYW-fqejkiwm-lryxv slig htly elevated-patient tolerated lisinopril 5mg BID [...] 03/20/2014 Care Plan: Referral Order SNOMED-CT : [id number] Ordered 03/20/2014 Visit Plan: Hypertension - uncontro [...] previous physician. 03/01/2014 Appointment: Trina Camacho [facility]Ptel[facility] [address] [facility] [place] New Patient 03/01/2014 Patient Education: Patient Medication Summary Completed 03/01/2014 Patient Education: Hypertension Completed 03/01/2014 Referral: Dr Avilez Referral Initiated Instructions Comment GET A TETANUS SHOT DOXYCYCLINE 100MG TWICE [...] do not resolve or if any worse Let me know if you a re [...] in blood pressure readings at home. . PNEUMONIA - PT IS CLINICALLY SYMPTOMATIC FOR PNEUMONIA - A CHEST XRAY, SPUTUM C AND S, BLOOD CULTURES, AND LABS HAVE BEEN ORDERED IN ORDER TO FURTHER WORK-UP THE ACUTE ILLNESS. . Hypertension - wel l controlled - [...] rx for nystatin swish and swallow . Occult blood negat cassy x3. . [...] copy Elevated fasting glucose-check Hgb A1C . URI - Pt advised t o [...] if symptoms do not show improvement. . Sinusitis - Pt has acute infection [...] in the nasal steroid allergy spray. . POJ-ehtfmomx-ulhkv slightly elevated-patient tolerated lisinopril 5mg BID well, did not tolerate 10mg daily in the past. Recommend he monitor blood pressure and pulse at home and bring in readings for review. Aortic Stenosis-recommend stress test-refer to Dr Avilez for evaluation Hyperlipidemia-continue statin medication-increase exercise and weight loss-low fat diet. Repeat labs in 3-6 months-Patient verbalized understanding of plan. Daytime tpbrjzlrwud-jdfnfxi-vljfsrv-refer for sleep study . TZW-bzzzlrtx-xkhix slightly elevated-patient tolerated lisinopril 5mg BID well, did not tolerate 10mg daily in the past. Recommend he monitor blood pressure and pulse at home and bring in readings for review. Aortic Stenosis-recommend stress test-refer to Dr Avilez for evaluation Hyperlipidemia-continue statin medication-increase exercise and weight loss-low fat diet. Repeat labs in 3-6 months-Patient verbalized understanding of plan. Let me know if you a re [...]
--- OUTSIDE RECORDS SUMMARY | 2019-03-16 12:36 | XMS REPORT | CCD ---
Author Author Farshad Camacho Organization Trina Camacho MD, [facility] Address [address] [place] [address] Phone Care Team Providers Care Soil Conservation Teacher Name Role Phone PP Unavailable CCM Unavailable Summary Purpose Interface Exchange Insurance Providers Payer name Policy type / Coverage type Covered green party ID Effective Begin Date Effective End Date WPS Medicare Part B Medicare Part B [id number] Unknown Cigna Medicare Part B 80 [id number] Unknown Family history Brother Diagnosis Age At Onset lung cancer Unknown Alcoholism Unknown Mother Diagnosis Age At Onset Cancer Unknown Pancratic cancer Unknown Arthritis Unknown Father Diagnosis Age At Onset Alcoholism Unknown Social History Social History Element Codes Description Effective Dates Marital status Unknown M alberto Rice 03/01/2014 Number of children Unknown 3 and 3 step 03/01/[address]: 4404828 Former smoker quit 199603/01/2014 Allergies, Adverse Reactions, [...] Instructions doxycycline hyclate 100 mg tablet RxNorm: 6307087 1 Tablet(s) PO BID 06/21/2018 06/27/2018 Active Kenalog 40 mg/mL [employer]ell pension for injection RxNorm: 8897938 Milliliter(s) Inj 06/21/2018 06/21/2018 In active Tamiflu 75 mg capsule RxNorm: 870253 1 Capsule(s) PO BID 05/14/2018 05/18/2018 Inactive Kenalog 40 mg/mL russell pension for injection RxNorm: 5242924 Milliliter(s) Inj 05/14/2018 05/14/2018 In active prednisone 10 mg tablet RxNorm: 688888 Tablet(s) PO UD 03/11/2018 06/20/2018 Inactive 60,50,40,30,20,10 Kenalog 40 mg/mL russell pension for injection RxNorm: 3171666 1 Milliliter(s) Inj 03/11/2018 03/11/2018 In active Keflex 500 mg capsule RxNorm: 258482 1 Capsule(s) PO TID 03/11/2018 03/20/2018 Inactive Symbicort 160 mcg-4. 5 mcg/actuation HFA aerosol inhaler RxNorm: 5436771 2 Puff(s) INH BID 02/10/2018 No Stop Date Active Keflex 500 mg capsule RxNorm: 323476 1 Capsule(s) PO TID 02/10/2018 02/19/2018 Inactive prednisone 10 mg tablet RxNorm: 607431 Tablet(s) PO UD start on 11/1902/10/2018 03/09/2018 Inactive 60,50,40,30,20,10 Advair Diskus 250 mc g-50 mcg/dose powder for inhalation RxNorm: 5631103 1 Puff(s) INH BID 12/29/2017 No Stop Date Active Zithromax Z-Poncho 250 mg tablet RxNorm: 800658 1 Tablet(s) PO UD 12/29/2017 01/02/2018 Inactive zpack Tessalon Perles 100 mg capsule RxNorm: 045778 1-2 Capsule(s) PO TID as needed 12/29/2017 01/02/2018 In active allopurinol 300 mg t ablet RxNorm: 772862 Tablet(s) TAKE ONE TA BLET BY MOUTH ONCE DAILY 12/10/2017 No Stop Date Active Kenalog 40 mg/mL russell pension for injection RxNorm: 2574161 1.5 Milliliter(s) In j 12/03/2017 12/03/2017 In active allopurinol 300 mg t ablet RxNorm: 492629 TAKE ONE TABLET BY MO UTH ONCE DAILY 09/08/2017 12/09/2017 In active allopurinol 300 mg t ablet RxNorm: 567411 TAKE ONE TABLET BY MO UTH ONCE DAILY 06/15/2017 09/07/2017 In active Keflex 500 mg capsule RxNorm: 524716 1 Capsule(s) PO TID 05/04/2017 05/13/2017 Inactive Kenalog 40 mg/mL russell pension for injection RxNorm: 9151505 1 Milliliter(s) Inj 03/17/2017 03/17/2017 In active Keflex 500 mg capsule RxNorm: 873931 1 Capsule(s) PO TID 03/13/2017 03/12/2017 Inactive Keflex 500 mg capsule RxNorm: 584051 1 Capsule(s) PO TID 03/13/2017 03/22/2017 Inactive prednisone 10 mg tablet RxNorm: 191931 Tablet(s) PO UD start on 11/1911/18/2016 12/23/2016 Inactive 60,50,40,30,20,10 Advair Diskus 250 mc g-50 mcg/dose powder for inhalation RxNorm: 7732627 1 Puff(s) INH BID 11/18/2016 12/28/2017 Inactive doxycycline hyclate 100 mg capsule RxNorm: 6525110 1 Capsule(s) PO BID 11/18/2016 11/27/2016 In active Kenalog 40 mg/mL russell pension for injection RxNorm: 2962879 Milliliter(s) Inj 11/18/2016 11/18/2016 In active nystatin 100,000 uni t/mL oral suspension RxNorm: 282433 5 Milliliter(s) PO QI D 05/20/2016 05/29/2016 In active allopurinol 300 mg t ablet RxNorm: 396474 TAKE ONE TABLET BY MO UTH ONCE DAILY 05/11/2016 05/05/2017 In active Tessalon Perles 100 mg capsule RxNorm: 724336 1-2 Capsule(s) PO TID as needed 04/29/2016 05/03/2016 In active Prilosec OTC 20 mg t ablet,delayed release RxNorm: 069159 Tablet(s) PO 04/28/2016 11/16/2016 In active doxycycline hyclate 100 mg capsule RxNorm: 6551433 1 Capsule(s) PO BID 04/28/2016 05/07/2016 In active Tamiflu 75 mg capsule RxNorm: 663088 1 Capsule(s) PO BID 04/07/2016 04/11/2016 Inactive Tamiflu 75 mg capsule RxNorm: 249688 1 Capsule(s) PO BID 04/07/2016 04/06/2016 Inactive prednisone 20 mg tablet RxNorm: 627312 1 Tablet(s) PO BID 04/04/2016 04/08/2016 Inactive Kenalog 40 mg/mL russell pension for injection RxNorm: 8735330 1 Milliliter(s) Inj 03/24/2016 03/24/2016 In active cefdinir 300 mg capsule RxNorm: 393246 1 Capsule(s) PO BID 03/24/2016 03/30/2016 Inactive Zithromax Z-Poncho 250 mg tablet RxNorm: 905620 1 Tablet(s) PO UD 03/24/2016 03/28/2016 Inactive zpack cefdinir 300 mg capsule RxNorm: 459156 1 Capsule(s) PO BID 03/24/2016 03/23/2016 Inactive Flonase Allergy Reli ef 50 mcg/actuation nasal spray,suspension RxNorm: 4781556 1 [place] NASAL BID 02/13/2016 No Stop Date Active doxycycline hyclate 100 mg capsule RxNorm: 8821161 1 Capsule(s) PO BID 02/13/2016 02/19/2016 In active lisinopril 5 mg tablet RxNorm: 799941 1 Tablet(s) PO BID TAKE ONE TABLET BY [facility] TWICE DAILY 11/20/2015 05/12/2016 Inactive hold until patient calls fo r refill doxycycline hyclate 100 mg capsule RxNorm: 5797459 1 Capsule(s) PO BID 08/02/2015 08/08/2015 In active Kenalog 40 mg/mL russell pension for injection RxNorm: 1949943 Milliliter(s) Inj 08/02/2015 08/02/2015 In active lisinopril 5 mg tablet RxNorm: 046546 TAKE ONE TABLET BY MOUTH TWICE DAILY 06/11/2015 11/19/2015 In active allopurinol 300 mg t ablet RxNorm: 346461 1 Tablet(s) PO daily 05/08/2015 05/01/2016 Inactive lisinopril 5 mg tablet RxNorm: 560880 1 Tablet(s) PO BID 01/30/2015 05/29/2015 Inactive [AttnRPh: Saving apply/adjudicate RxGRP:SG20 RxBIN:[id number] RxPCN: ID#:[id number]] Zithromax Z-Poncho 250 mg tablet RxNorm: 974224 1 Tablet(s) PO UD 01/10/2015 03/23/2016 Inactive zpack allopurinol 300 mg t ablet RxNorm: 349236 1 Tablet(s) PO daily 10/31/2014 04/28/2015 Inactive lisinopril 5 mg tablet RxNorm: 229639 1 Tablet(s) PO BID 07/31/2014 11/27/2014 Inactive [AttnRPh: Saving apply/adjudicate RxGRP:SG20 RxBIN:[id number] RxPCN: ID#:[id number]] allopurinol 300 mg t ablet RxNorm: 865924 1 Tablet(s) PO daily 05/17/2014 10/30/2014 Inactive lisinopril 5 mg tablet RxNorm: 949140 1 Tablet(s) PO BID 03/01/2014 06/28/2014 Inactive [SAVINGS FOR UNINSURED PATIENTS -- BIN:[id number], PCN: [id number], Group: [id number], ID# [id number], Process claim through [employer], for questions: . THIS IS NOT INSURANCE.] Fish Oil 1,000 mg ca psule RxNorm: 3 Capsule(s) PO daily No Start Date Active B Complex 1 oral RxNorm: 73065 oral No Start Date Active Vitamin D3 1,000 uni t capsule RxNorm: 097465 2 Capsule(s) PO daily No Start Date Active Zyrtec 10 mg capsule RxNorm: 7927287 1 Capsule(s) PO daily No Start Date Active fenofibrate nanocrys tallized 48 mg tablet RxNorm: 573092 1 Tablet(s) PO daily No Start Date Active metoprolol tartrate 25 mg tablet RxNorm: 135346 1 Tablet(s) PO daily No Start Date Active multivitamin tablet RxNorm: 1 Tablet(s) PO daily No Start Date Active pravastatin 40 mg ta blet RxNorm: 249173 1 Tablet(s) PO daily No Start Date Active Tessalon Perles 100 mg capsule RxNorm: 083958 1-2 Capsule(s) PO TID as needed No Start Date 04/28/2016 Inactive allopurinol 300 mg t ablet RxNorm: 389512 1 Tablet(s) PO daily No Start Date 05/16/2014 Inactive metformin 500 mg tablet RxNorm: 985962 1 Tablet(s) PO BID No Start Date 02/14/2014 Inactive pioglitazone 15 mg t ablet RxNorm: 704777 1 Tablet(s) PO daily No Start Date 07/30/2014 Inactive lisinopril 5 mg tablet RxNorm: 911168 1 Tablet(s) PO daily No Start Date 02/28/2014 Inactive losartan 25 mg tablet RxNorm: 700129 1/2 Tablet(s) PO daily No Start Date 01/12/2018 Inactive Zithromax Z-Poncho 250 mg tablet RxNorm: 238479 1 Tablet(s) PO UD No Start Date 01/09/2015 Inactive zpack Medication Administered Medication Codes Instruc tions Start Date Status Kenalog 40 mg/mL suspension for injection RxNorm: 5751564 Milliliter 06/21/2018 No longer Active Kenalog 40 mg/mL suspension for injection RxNorm: 8486044 Milliliter 05/14/2018 No longer Active Kenalog 40 mg/mL suspension for injection RxNorm: 9503870 1Milliliter 03/11/2018 N o longer Active Kenalog 40 mg/mL suspension for injection RxNorm: 8065508 1.5Milliliter 12/03/2017 No longer Active Kenalog 40 mg/mL suspension for injection RxNorm: 1767068 1Milliliter 03/17/2017 N o longer Active Kenalog 40 mg/mL suspension for injection RxNorm: 9585467 Milliliter 11/18/2016 No longer Active Kenalog 40 mg/mL suspension for injection RxNorm: 5737539 1Milliliter 03/24/2016 N o longer Active Kenalog 40 mg/mL suspension for injection RxNorm: 3203541 Milliliter 08/02/2015 No longer Active Immunizations Vaccine [...] Observation Code Item Item Code Result Date Cbc With Differential Ord2 WBC 7.48 K/ul 06/22/2018 Cbc With Differential Ord2 RBC 4.22 M/ul 06/22/2018 Cbc With Differential Ord2 HGB 13.8 g/dl 06/22/2018 Cbc With Differential Ord2 HCT 41.5 % 06/22/2018 Cbc With Differential Ord2 Neut% 66.7 % 06/22/2018 Cbc With Differential Ord2 MCV 98.3 fl 06/22/2018 Cbc With Differential Ord2 Lymph% 19.9 % 06/22/2018 Cbc With Differential Ord2 MCH 32.7 pg 06/22/2018 Cbc With Differential Ord2 [place]% 11.0 % 06/22/2018 Cbc With Differential Ord2 MCHC 33.3 pg 06/22/2018 Cbc With Differential Ord2 Eos% 2.3 % 06/22/2018 Cbc With Differential Ord2 Baso% 0.1 % 06/22/2018 Cbc With Differential Ord2 PLT 134 K/ul 06/22/2018 Cbc With Differential Ord2 RDW 13.8 % 06/22/2018 Cbc With Differential Ord2 Neut ABS# 4.99 K/ul 06/22/2018 Cbc With Differential Ord2 Lymph ABS# 1.49 K/ul 06/22/2018 Cbc With Differential Ord2 [place] ABS# 0.8 K/ul 06/22/2018 Cbc With Differential Ord2 Eos ABS# 0.2 K/ul 06/22/2018 Cbc With Differential Ord2 Baso ABS# 0.0 K/ul 06/22/2018 Lipid Ord30 CHOL 161 mg/dL 06/09/2018 Lipid Ord30 HDL 41.0 mg/dl 06/09/2018 Lipid Ord30 TRIG 122 mg/dL 06/09/2018 Lipid Ord30 LDL 96 mg/dL 06/09/2018 Lipid Ord30 C/HDL 3.9 Ratio 06/09/2018 Comp Metabolic Wwt470 NA 141 mEq/L 06/09/2018 Comp Metabolic Tbr910 K 4.4 mEq/L 06/09/2018 Comp Metabolic Iwg606 CL 105 mEq/L 06/09/2018 Comp Metabolic Ulg653 CO2 27.0 mEq/L 06/09/2018 Comp Metabolic Bok824 AN ION GAP 13 06/09/2018 Comp Metabolic Jws414 GL UCOSE 118 mg/dL 06/09/2018 Comp Metabolic Atc758 Cr eat 1.4 mg/dL 06/09/2018 Comp Metabolic Cvl067 eG FR 54 ml/min/1.73m2 06/09 Comp Metabolic Zux302 BUN 15 mg/dL 06/09/2018 Comp Metabolic Och691 B/ C Ratio 10.8 Ratio 06/09/2018 Comp Metabolic Nst395 CA LCIUM 9.0 mg/dL 06/09/2018 Comp Metabolic Fuf494 AL K PHOS 77 U/L 06/09/2018 Comp Metabolic Lby680 T(SGOT) 24 U/L 06/09/2018 Comp Metabolic Xfu905 AL T(SGPT) 32 U/L 06/09/2018 Comp Metabolic Hyp485 BI LI T 0.6 mg/dL 06/09/2018 Comp Metabolic Zxv594 AL BUMIN 4.0 g/dL 06/09/2018 Comp Metabolic Tve257 TP RO 6.9 g/dL 06/09/2018 Comp Metabolic Cdp063 GL OB 3.0 g/dL 06/09/2018 Comp Metabolic Fwh125 A/ G Ratio 1.3 Ratio 06/09/2018 Comp Metabolic Qaj971 Os mo 283 mOsmo 06/09/2018 Comp Metabolic Bel532 NA 136 mEq/L 12/22/2017 Comp Metabolic Lbm906 K 4.2 mEq/L 12/22/2017 Comp Metabolic Eba123 CL 105 mEq/L 12/22/2017 Comp Metabolic Qsh107 CO2 30.0 mEq/L 12/22/2017 Comp Metabolic Vud704 AN ION GAP 5 12/22/2017 Comp Metabolic Ftp365 GL UCOSE 85 mg/dL 12/22/2017 Comp Metabolic Rfn023 Cr eat 1.2 mg/dL 12/22/2017 Comp Metabolic Plh028 eG FR 62 ml/min/1.73m2 12/22 Comp Metabolic Qid453 BUN 17 mg/dL 12/22/2017 Comp Metabolic Uds372 B/ C Ratio 13.9 Ratio 12/22/2017 Comp Metabolic Qgj835 CA LCIUM 9.3 mg/dL 12/22/2017 Comp Metabolic Tyv070 AL K PHOS 78 U/L 12/22/2017 Comp Metabolic Kej700 T(SGOT) 24 U/L 12/22/2017 Comp Metabolic Jcn068 AL T(SGPT) 28 U/L 12/22/2017 Comp Metabolic Qhk943 BI LI T 0.5 mg/dL 12/22/2017 Comp Metabolic Cke554 AL BUMIN 4.0 g/dL 12/22/2017 Comp Metabolic Czt176 TP RO 6.6 g/dL 12/22/2017 Comp Metabolic Bul538 GL OB 2.6 g/dL 12/22/2017 Comp Metabolic Xqp443 A/ G Ratio 1.6 Ratio 12/22/2017 Comp Metabolic Edy294 Os mo 273 mOsmo 12/22/2017 Cbc With [...] 31.9 pg 12/22/2017 Cbc With Differential Ord2 [place]% 6.3 % 12/22/2017 Cbc With Differential Ord2 [...] 1.92 K/ul 12/22/2017 Cbc With Differential Ord2 [place] ABS# 0.6 K/ul 12/22/2017 Cbc With Differential Ord2 Eos ABS# 0.3 K/ul 12/22/2017 Cbc With Differential Ord2 Baso ABS# 0.0 K/ul 12/22/2017 Comp Metabolic Frt150 NA 135 mEq/L 06/22/2017 Comp Metabolic Fgs756 K 4.2 mEq/L 06/22/2017 Comp Metabolic Qzs081 CL 101 mEq/L 06/22/2017 Comp Metabolic Suf504 CO2 27.0 mEq/L 06/22/2017 Comp Metabolic Jie459 AN ION GAP 11 06/22/2017 Comp Metabolic Ufw889 GL UCOSE 89 mg/dL 06/22/2017 Comp Metabolic Csf928 Cr eat 1.5 mg/dL 06/22/2017 Comp Metabolic Gfz978 eG FR 51 ml/min/1.73m2 06/22 Comp Metabolic Njt022 BUN 16 mg/dL 06/22/2017 Comp Metabolic Hzv974 B/ C Ratio 11.0 Ratio 06/22/2017 Comp Metabolic Ohs930 CA LCIUM 8.9 mg/dL 06/22/2017 Comp Metabolic Rnn695 AL K PHOS 79 U/L 06/22/2017 Comp Metabolic Kbx018 T(SGOT) 26 U/L 06/22/2017 Comp Metabolic Hwh473 AL T(SGPT) 26 U/L 06/22/2017 Comp Metabolic Szr233 BI LI T 0.4 mg/dL 06/22/2017 Comp Metabolic Fsf473 AL BUMIN 4.1 g/dL 06/22/2017 Comp Metabolic Dgz480 TP RO 6.9 g/dL 06/22/2017 Comp Metabolic Hvb127 GL OB 2.8 g/dL 06/22/2017 Comp Metabolic Dya381 A/ G Ratio 1.5 Ratio 06/22/2017 Comp Metabolic Eag292 Os mo 271 mOsmo 06/22/2017 Cbc With [...] 32.6 pg 06/22/2017 Cbc With Differential Ord2 [place]% 7.9 % 06/22/2017 Cbc With Differential Ord2 [...] 2.14 K/ul 06/22/2017 Cbc With Differential Ord2 [place] ABS# 0.8 K/ul 06/22/2017 Cbc With Differential [...] 33.2 pg 12/25/2015 Cbc With Differential Ord2 [place]% 7.6 % 12/25/2015 Cbc With Differential Ord2 [...] 1.86 K/ul 12/25/2015 Cbc With Differential Ord2 [place] ABS# 0.6 K/ul 12/25/2015 Cbc With Differential Ord2 Eos ABS# 0.2 K/ul 12/25/2015 Cbc With Differential Ord2 Baso ABS# 0.1 K/ul 12/25/2015 Comp Metabolic Puw112 NA 136 mEq/L 12/25/2015 Comp Metabolic Cej831 K 4.2 mEq/L 12/25/2015 Comp Metabolic Jtk968 CL 104 mEq/L 12/25/2015 Comp Metabolic Ylg503 CO2 26.0 mEq/L 12/25/2015 Comp Metabolic Avf105 AN ION GAP 10 12/25/2015 Comp Metabolic Ssk741 GL UCOSE 104 mg/dL 12/25/2015 Comp Metabolic Mpi012 Cr eat 1.3 mg/dL 12/25/2015 Comp Metabolic Oty846 eG FR 59 ml/min/1.73m2 12/24 Comp Metabolic Gpv647 BUN 23 mg/dL 12/25/2015 Comp Metabolic Fmk252 B/ C Ratio 18.0 Ratio 12/25/2015 Comp Metabolic Rcg332 CA LCIUM 9.1 mg/dL 12/25/2015 Comp Metabolic Vxg799 AL K PHOS 76 U/L 12/25/2015 Comp Metabolic Fmj588 T(SGOT) 30 U/L 12/25/2015 Comp Metabolic Bbb554 AL T(SGPT) 28 U/L 12/25/2015 Comp Metabolic Atr339 BI LI T 0.3 mg/dL 12/25/2015 Comp Metabolic Jka340 AL BUMIN 4.0 g/dL 12/25/2015 Comp Metabolic Aoy521 TP RO 6.6 g/dL 12/25/2015 Comp Metabolic Mew912 GL OB 2.6 g/dL 12/25/2015 Comp Metabolic Evc511 A/ G Ratio 1.5 Ratio 12/25/2015 Comp Metabolic Raa037 Os mo 276 mOsmo 12/25/2015 Cbc With [...] 32.4 pg 06/25/2015 Cbc With Differential Ord2 [place]% 7.1 % 06/25/2015 Cbc With Differential Ord2 [...] 2.18 K/ul 06/25/2015 Cbc With Differential Ord2 [place] ABS# 0.7 K/ul 06/25/2015 Cbc With Differential Ord2 Eos ABS# 0.2 K/ul 06/25/2015 Cbc With Differential Ord2 Baso ABS# 0.0 K/ul 06/25/2015 Cbc With Differential Ord2 New Analyzer Notice Please note new ref ranges s tarting 03-28-2015 due to implemntation of new five part differential hematolgy analyzer. 06/25/2015 %Hba1C Xea659 % HbA1c 65814-2 6.1 % 06/25/2015 %Hba1C Cjp129 Gluc Ave 128 mg/dL 06/25/2015 Comp Metabolic Qzq314 NA 135 mEq/L 06/25/2015 Comp Metabolic Ppe173 K 4.3 mEq/L 06/25/2015 Comp Metabolic Zmy063 CL 102 mEq/L 06/25/2015 Comp Metabolic Eew979 CO2 26.0 mEq/L 06/25/2015 Comp Metabolic Hme822 AN ION GAP 11 06/25/2015 Comp Metabolic Etr545 GL UCOSE 81 mg/dL 06/25/2015 Comp Metabolic Qgh117 Cr eat 1.5 mg/dL 06/25/2015 Comp Metabolic Vmf661 eG FR 49 ml/min/1.73m2 06/24 Comp Metabolic Rwp579 BUN 20 mg/dL 06/25/2015 Comp Metabolic Xcz566 B/ C Ratio 13.2 Ratio 06/25/2015 Comp Metabolic Eiy161 CA LCIUM 9.5 mg/dL 06/25/2015 Comp Metabolic Zss078 AL K PHOS 65 U/L 06/25/2015 Comp Metabolic Njj139 T(SGOT) 25 U/L 06/25/2015 Comp Metabolic Hgy503 AL T(SGPT) 29 U/L 06/25/2015 Comp Metabolic Ghh869 BI LI T 0.4 mg/dL 06/25/2015 Comp Metabolic Buw541 AL BUMIN 4.4 g/dL 06/25/2015 Comp Metabolic Inb454 TP RO 7.3 g/dL 06/25/2015 Comp Metabolic Csk890 GL OB 3.0 g/dL 06/25/2015 Comp Metabolic Ole962 A/ G Ratio 1.5 Ratio 06/25/2015 Comp Metabolic Qgq705 Os mo 272 mOsmo 06/25/2015 Tsh Ord6 hTSH II 3.03 uIU/mL 06/25/2015 Lipid Ord30 CHOL 150 mg/dL 06/22/2015 Lipid Ord30 HDL 34.0 mg/dl 06/22/2015 Lipid Ord30 TRIG 149 mg/dL 06/22/2015 Lipid Ord30 LDL 86 mg/dL 06/22/2015 Lipid Ord30 C/HDL 4.4 Ratio 06/22/2015 Hepatic Obm918 ALBUMIN 4.3 g/dL 06/22/2015 Hepatic Tld099 TPRO 7.0 g/dL 06/22/2015 Hepatic Wol110 GLOB 2.8 g/dL 06/22/2015 Hepatic Kqu852 A/G Ratio 1.5 Ratio 06/22/2015 Hepatic Qfi200 ALK PHOS 65 U/L 06/22/2015 Hepatic Ftg444 ALT(SGPT) 33 U/L 06/22/2015 Hepatic Ctm332 AST(SGOT) 28 U/L 06/22/2015 Hepatic Hdf684 BILI T 0.5 mg/dL 06/22/2015 Hepatic Hxg592 BILI D 0.1 mg/dL 06/22/2015 Hepatic Yof977 BILI I 0.4 mg/dL 06/22/2015 Review of [...] Respiratory No pedal edema 05/20/2016 Respiratory snoring 03/09/2016 Respiratory No wheezing 05/20/2016 Gastrointestinal No hemorrhoids [...] masses 03/01/2014 None Full Exam - General 1995 Ears/Nose/Throat oral cavity/pharynx/larynx Overall: oral mucosa clear 03/01/2014 None Full Exam - General 1995 [...] CPT-4: J3301 06/21/2018 THER/PROPH/DIAG INJ SC/IM CPT-4: 89394 05/14/2018 TRIAMCINOLONE ACET I [place] NOS CPT-4: J3301 05/14/2018 TRIAMCINOLONE ACET I [place] NOS CPT-4: J3301 03/11/2018 THER/PROPH/DIAG INJ SC/IM CPT-4: 16705 03/11/2018 PPPS, SUBSEQ VISIT CPT- 4: G0439 01/13/2018 TRIAMCINOLONE ACET I [place] NOS CPT-4: J3301 12/03/2017 THER/PROPH/DIAG INJ SC/IM CPT-4: 46679 12/03/2017 TRIAMCINOLONE ACET I [place] NOS CPT-4: J3301 06/24/2017 TRIAMCINOLONE ACET I [place] NOS CPT-4: J3301 03/17/2017 TRIAMCINOLONE ACET I [place] NOS CPT-4: J3301 11/18/2016 TRIAMCINOLONE ACET I [place] NOS CPT-4: J3301 03/24/2016 THER/PROPH/DIAG INJ SC/IM CPT-4: 92835 03/24/2016 TRIAMCINOLONE ACET I [place] NOS CPT-4: J3301 08/02/2015 OCCULT BLOOD FECES CPT- 4: 92787 08/03/2014 INITIAL PREVENTIVE EXAM CPT-4: G0402 07/31/2014 Vital Signs Date Vital 06/21/2018 Blood Pressure 1: 130/80 Code: 8480-6 Heart Rate 1: 94 bpm Height: 5'10" SpO2: 95% Weight: 05/14/2018 Blood Pressure 1: 144/84 Code: 8480-6 Heart Rate 1: 70 bpm Height: SpO2: 95% Weight: 03/11/2018 Blood Pressure 1: 134/76 Code: 8480-6 BMI: 35.7 Code: 01595-6 Heart Rate 1: 60 bpm Height: 5'10" SpO2: 96% Weight: 249 lbs 02/10/2018 Blood Pressure 1: 140/72 Code: 8480-6 BMI: 33.7 Code: 92792-8 Heart Rate 1: 48 bpm Height: 5'10" SpO2: 95% Temperature: 36.6 (C ) / 97.8 (F) Weight: 235 lbs 01/13/2018 Blood Pressure 1: 118/66 Code: 8480-6 BMI: 33.3 Code: 12609-9 Heart Rate 1: 57 bpm Height: 5'10" SpO2: 98% Waist Measure (cm): 97 cm Weight: 232 lbs 12/23/2017 Blood Pressure 1: 120/62 Code: 8480-6 BMI: 33.7 Code: 38535-8 Heart Rate 1: 58 bpm Height: 5'10" SpO2: 96% Weight: 235 lbs 06/24/2017 Blood Pressure 1: 136/74 Code: 8480-6 BMI: 38.7 Code: 04696-6 Heart Rate 1: 75 bpm Height: 5'10" SpO2: 98% Weight: 270 lbs 03/17/2017 Blood Pressure 1: 138/78 Code: 8480-6 Heart Rate 1: 65 bpm SpO2: 97% Temperature: 36.6 (C ) / 97.8 (F) 12/24/2016 Blood Pressure 1: 134/78 Code: 8480-6 BMI: 37.2 Code: 67479-8 Heart Rate 1: 56 bpm Height: 5'10" SpO2: 98% Weight: 259 lbs 11/18/2016 Blood Pressure 1: 130/72 Code: 8480-6 BMI: 37.3 Code: 42504-8 Heart Rate 1: 70 bpm Height: 5'10" SpO2: 95% Weight: 260 lbs 06/24/2016 Blood Pressure 1: 134/80 Code: 8480-6 BMI: 38.3 Code: 75398-9 Heart Rate 1: 66 bpm Height: 5'10" SpO2: 98% Weight: 267 lbs 05/20/2016 Blood Pressure 1: 138/82 Code: 8480-6 BMI: 37.4 Code: 61550-1 Heart Rate 1: 65 bpm Height: 5'10" SpO2: 100% Weight: 261 lbs 05/09/2016 Blood Pressure 1: 154/78 Code: 8480-6 Heart Rate 1: 82 bpm Height: SpO2: 89% Temperature: 36.2 (C ) / 97.2 (F) Weight: 04/28/2016 Blood Pressure 1: 112/62 Code: 8480-6 BMI: 37.9 Code: 26521-7 Heart Rate 1: 73 bpm Height: 5'10" SpO2: 94% Temperature: 37.2 (C ) / 98.9 (F) Weight: 264 lbs 04/04/2016 Blood Pressure 1: 150/86 Code: 8480-6 Blood Pressure 1: 148/86 Code: 8480-6 Heart Rate 1: 71 bpm SpO2: 93% SpO2: 95% Temperature: 37.2 (C ) / 99.0 (F) 03/28/2016 Blood Pressure 1: 156/74 Code: 8480-6 BMI: 38.0 Code: 41196-3 Heart Rate 1: 84 bpm Height: 5'10" SpO2: 95% Weight: 265 lbs 02/13/2016 Blood Pressure 1: 118/62 Code: 8480-6 BMI: 39.2 Code: 57893-3 Heart Rate 1: 65 bpm Height: 5'10" SpO2: 96% Weight: 273 lbs 08/02/2015 Blood Pressure 1: 150/82 Code: 8480-6 BMI: 38.3 Code: 33640-3 Heart Rate 1: 75 bpm Height: 5'10" SpO2: 93% Weight: 267 lbs 06/22/2015 Blood Pressure 1: 138/80 Code: 8480-6 BMI: 38.7 Code: 56102-0 Heart Rate 1: 76 bpm Height: 5'10" SpO2: 96% Weight: 270 lbs 07/31/2014 Blood Pressure 1: 138/70 Code: 8480-6 BMI: 37.7 Code: 66196-6 Heart Rate 1: 70 bpm Height: 5'10" Respiratory Rate: 20 bpm Weight: 263 lbs 03/20/2014 Blood Pressure 1: 142/80 Code: 8480-6 BMI: 37.7 Code: 25260-7 Heart Rate 1: 64 bpm Height: 5'10" Weight: 263 lbs 03/01/2014 Blood Pressure 1: 150/90 Code: 8480-6 Blood Pressure 2: 140/80 Code: 8480-6 BMI: 37.3 Code: 50169-7 Heart Rate 1: 56 bpm Height: 5'10" [...] ago 04/28/2016 None cough Location in the [facility] 04/04/2016 None cough Location in the roat [...] Encounters Encounter Performer Loca tion Codes Date ([id number]) [id number] EST. P ATIENT, LEVEL III Diagnosis: Essential (primary) hypertension[ICD10: I10] Diagnosis: Cough[ICD10: R05] Diagnosis: Cellulitis of right finger[ICD10: L03.011] Diagnosis: Other allergic rhinitis[ICD10: J30.89] Susu Camacho MD, [facility] CPT-4: 30951 06/21/2018 [id number] EST. PATIENT, LEVEL III Diagnosis: Acute laryngopharyngitis[ICD10: J06.0] Diagnosis: Other allergic rhinitis[ICD10: J30.89] Diagnosis: Cough[ICD10: R05] Lulu Camacho MD, [facility] CPT-4: 11160 05/14/2018 [id number] EST. PATIENT, LEVEL IV Diagnosis: Other acute sinusitis[ICD10: J01.80] Diagnosis: Other allergic rhinitis[ICD10: J30.89] Diagnosis: Cough[ICD10: R05] Lulu Camacho MD, [facility] CPT-4: 53903 03/11/2018 [id number] EST. PATIENT, LEVEL IV Diagnosis: Other acute sinusitis[ICD10: J01.80] Diagnosis: Other allergic rhinitis[ICD10: J30.89] Lulu Camacho MD, [facility] CPT-4: 06352 02/10/2018 ([id number]) 18725 EST. P ATIENT, LEVEL IV Diagnosis: Essential (primary) hypertension[ICD10: I10] Diagnosis: Mixed hyperlipidemia[ICD10: E78.2] Diagnosis: Nonrheumatic aortic (valve) stenosis[ICD10: I35.0] Trina Camacho MD, [facility] CPT-4: 38143 12/23/2017 ([id number]) PER PM REEVA L EST PAT 65+ YR Diagnosis: Encounter for general adult medical examination with abnormal findings[ICD10: Z00.01] Trina Camacho MD, [facility] CPT-4: 18159 06/24/2017 ([id number]) Patient adm itted to the hospital from clinic (NO CHARGE) Diagnosis: [ICD9: ] Diagnosis: Essential (primary) hypertension[ICD10: I10] Diagnosis: Other allergic rhinitis[ICD10: J30.89] Diagnosis: Cough[ICD10: R05] Diagnosis: Mixed hyperlipidemia[ICD10: E78.2] Trina Camacho MD, [facility] CPT- 4: 90649R 06/24/2017 83053 EST. PATIENT, LEVEL IV Diagnosis: Other acute sinusitis[ICD10: J01.80] Diagnosis: Other allergic rhinitis[ICD10: J30.89] Lulu Camacho MD, [facility] CPT-4: 23532 03/17/2017 ([id number]) 03819 EST. P ATIENT, LEVEL IV Diagnosis: Essential (primary) hypertension[ICD10: I10] Diagnosis: Mixed hyperlipidemia[ICD10: E78.2] Trina Camacho MD, [facility] CPT- 4: 81996 12/24/2016 14644 EST. PATIENT, LEVEL IV Diagnosis: Acute bronchitis due to other specified organisms[ICD10: J20.8] Lulu Camacho MD, [facility] CPT-4: 82530 11/18/2016 ([id number]) 10271 EST. P ATIENT, LEVEL III Diagnosis: Essential (primary) hypertension[ICD10: I10] Trina Camacho MD, [facility] CPT-4: 30925 06/24/2016 ([id number]) 32146 EST. P ATIENT, LEVEL III Diagnosis: Essential (primary) hypertension[ICD10: I10] Diagnosis: Cough[ICD10: R05] Diagnosis: Candidal stomatitis[ICD10: B37.0] Trina Camacho MD, [facility] CPT-4: 01950 05/20/2016 ([id number]) Patient adm itted to the hospital from clinic (NO CHARGE) Diagnosis: Pneumonia, unspecified organism[ICD10: J18.9] Diagnosis: Cough[ICD10: R05] Trina Camacho MD, [facility] CPT-4: 59606Y 05/09/2016 [id number] EST. PATIENT, LEVEL III Diagnosis: Acute laryngopharyngitis[ICD10: J06.0] Diagnosis: Cough[ICD10: R05] Lulu Camacho MD, [facility] CPT-4: 52934 04/28/2016 ([id number]) 99347 EST. P ATIENT, LEVEL III Diagnosis: Cough[ICD10: R05] Diagnosis: Essential (primary) hypertension[ICD10: I10] Susu Camacho MD, [facility] CPT-4: 73373 04/04/2016 ([id number]) 57916 EST. P ATIENT, LEVEL III Diagnosis: Cough[ICD10: R05] Diagnosis: Pneumonia, unspecified organism[ICD10: J18.9] Susu Camacho MD, [facility] CPT-4: 20796 03/28/2016 42066 EST. PATIENT, LEVEL IV Diagnosis: Other allergic rhinitis[ICD10: J30.89] Diagnosis: Other acute sinusitis[ICD10: J01.80] Lulu Camacho MD, [facility] CPT- 4: 81959 02/13/2016 10569 EST. PATIENT, LEVEL IV Diagnosis: Acute bronchitis due to other specified organisms[ICD10: J20.8] Diagnosis: Other acute sinusitis[ICD10: J01.80] Diagnosis: Other allergic rhinitis[ICD10: J30.89] Lulu Camacho MD, [facility] CPT-4: 56203 08/02/2015 ([id number]) 66848 EST. P ATIENT, LEVEL IV Diagnosis: Essential (primary) hypertension[ICD10: I10] Diagnosis: Mixed hyperlipidemia[ICD10: E78.2] Diagnosis: Impaired fasting glucose[ICD10: R73.01] Susu Camacho MD, [facility] CPT-4: 76935 06/22/2015 ([id number]) 53837 EST. P ATIENT, LEVEL IV Diagnosis: ESSENTIAL HYPERTENSION[ICD9: 401.9] Diagnosis: Aortic stenosis[ICD9: 424.1] Diagnosis: Hyperlipidemia[ICD9: 272.4] Trina Camacho MD, [facility] CPT-4: 28425 03/20/2014 ([id number]) [facility] Diagnosis: ESSENTIAL HYPERTENSION[ICD9: 401.9] Diagnosis: DIABETES TYPE II[ICD9: 250.00] Diagnosis: Heart murmur[ICD9: 785.2] Diagnosis: Snoring[ICD9: 786.09] Diagnosis: Sleep-disordered breathing[ICD9: 780.59] Trina Camacho MD, [facility] CPT-4: 12158 03/01/2014 Plan of Care Planned Activity Notes [...] worse 06/21/2018 Appointment: Susu Mills WPtel: [phone] [phone] (30 min) Complex 06/21/2018 Patient Education: Patient [...] allergy spray. 05/14/2018 Appointment: Lulu Mann WPtel: [phone] [facility] (15 min) Moderate 05/14/2018 Patient Education: Patient [...] allergy spray. 03/11/2018 Appointment: Lulu Mann WPtel: [address] [place] [address] (15 min) Moderate 03/11/2018 Patient Education: Patient [...] allergy spray. 02/10/2018 Appointment: Lulu Mann WPtel: [address] [place] [address] (15 min) Moderate 02/10/2018 Patient Education: Patient [...] activity 12/23/2017 Appointment: [phone] [facility] (15 min) Moderate 12/23/2017 Patient Education: Patient [...] inhales bid. 06/24/2017 Appointment: Trina Camacho WPtel: [address] [place], [place] [address] (15 min) Moderate 06/24/2017 Patient Education: Patient [...] spray. 03/17/2017 Appointment: Lulu Mann WPtel: [phone] [facility] (15 min) Moderate 03/17/2017 Patient Education: Patient [...] medications. 12/24/2016 Appointment: Trina Camacho WPtel: [phone] [facility] (15 min) Moderate 12/24/2016 Patient Education: Patient [...] worsen. 11/18/2016 Appointment: Lulu Mann WPtel: [phone] [facility] (30 min) Complex 11/18/2016 Patient Education: Patient [...] at home. 06/24/2016 Appointment: Trina Camacho WPtel: [facility] (15 min) Moderate 06/24/2016 [...] and swallow 05/20/2016 Appointment: Trina Camacho WPtel: [address] [place], [place] [phone] (15 min) Moderate 05/20/2016 Patient Education: Patient Medication Summary Completed 05/20/2016 Patient Education: Obesity Completed 05/20/2016 Patient Education: Hypertension Completed 05/20/2016 Visit Plan: PNEUMONIA - PT IS CLINI WESLY SYMPTOMATIC FOR PNEUMONIA - A CHEST XRAY, SPUTUM C AND S, BLOOD CULTURES, AND LABS HAVE BEEN ORDERED IN ORDER TO FURTHER WORK-UP THE ACUTE ILLNESS. 05/09/2016 Appointment: Susu Mills WPtel: [phone] [place] (15 min) Moderate 05/09/2016 Patient Education: Patient Medication Summary Completed 05/09/2016 Visit Plan: URI - Pt advised to inc rease fluids, vitamin C. Discussed natural and expected course of this diagnosis and need to alert me if symptoms do not follow expected course, or if any worse. RX sent to patient's pharmacy. 04/28/2016 Appointment: Lulu Mann WPtel: [address] [place], [place] [phone] (15 min) Moderate 04/28/2016 Patient Education: Patient [...] verbalized understanding. 04/04/2016 Appointment: Susu Mills WPtel: [address] [place], [place] [phone] (10 min) Simple 04/04/2016 Patient Education: Patient Medication Summary Completed 04/04/2016 Patient Education: Hypertension Completed 04/04/2016 Visit Plan: Pneumonia-cough- improv ing-finish abx and call if symptoms do not completely resolved-patient verbalized understanding of plan. 03/28/2016 Appointment: Susu Mills WPtel: [address] [place], [place] [phone] (30 min) Complex 03/28/2016 Patient Education: Patient Medication Summary Completed 03/28/2016 Patient Education: Obesity Completed 03/28/2016 Visit Plan: Cough-kenalog injection today-start abx as directed-f/u , sooner if needed 03/24/2016 Appointment: Susu Mills WPtel: [address] [place], [place] [phone] (10 min) Simple 03/24/2016 Patient Education: Patient [...] show improvement. 02/13/2016 Appointment: Susu Mills WPtel: [phone] [phone] (15 min) Moderate 02/13/2016 Patient Education: Patient [...] spray. 08/02/2015 Appointment: [phone] (15 min) Moderate 08/02/2015 Patient Education: [...] Patient Medication Summary Completed 07/31/2014 Patient Education: [facility] - [facility] [employer] - Lisinopril - 18+ - Dynamic Portal ID Completed 07/31/2014 Visit Plan: HRJ-qvlxojau-cfhoc slig htly elevated-patient tolerated lisinopril 5mg BID well, did not tolerate 10mg daily in the past. Recommend he monitor blood pressure and pulse at home and bring in readings for review. Aortic Stenosis-recommend stress test-refer to Dr Avilez for evaluation Hyperlipidemia-continue statin medication-increase exercise and weight loss-low fat diet. Repeat labs in 3-6 months-Patient verbalized understanding of plan. Daytime jenlwpfaxau-hpiipwq-nbswefe-refer for sleep study 03/20/2014 Visit Plan: HQR-irialzvb-gpmcp slig htly elevated-patient tolerated lisinopril 5mg BID [...] 03/20/2014 Care Plan: Referral Order SNOMED-CT : [id number] Ordered 03/20/2014 Visit Plan: Hypertension - uncontro [...] previous physician. 03/01/2014 Appointment: Trina Camacho WPtel: [address] [place], [place] [address] [place] New Patient 03/01/2014 Patient Education: Patient Medication Summary Completed 03/01/2014 Patient Education: Hypertension Completed 03/01/2014 Referral: Dr Avilez Referral Initiated Instructions Comment . MAH-jjnpczhp-ecuhq slightly elevated-patient tolerated lisinopril 5mg BID well, did not tolerate 10mg daily in the past. Recommend he monitor blood pressure and pulse at home and bring in readings for review. Aortic Stenosis-recommend stress test-refer to Dr Avilez for evaluation Hyperlipidemia-continue statin medication-increase exercise and weight loss-low fat diet. Repeat labs in 3-6 months-Patient verbalized understanding of plan. Daytime iydnsbmfnow-ekyqaey-kbnflsg-refer for sleep study . Allergies - chroni c - recommended [...] continue with dietary changes and increased activity GET A TETANUS SHOT DOXYCYCLINE 100MG TWICE [...] in the nasal steroid allergy spray. . GAC-twzbrdln-fmrcg slightly elevated-patient tolerated lisinopril 5mg BID well, did not tolerate 10mg daily in the past. Recommend he monitor blood pressure and pulse at home and bring in readings for review. Aortic Stenosis-recommend stress test-refer to Dr Avilez for evaluation Hyperlipidemia-continue statin medication-increase exercise and weight loss-low fat diet. Repeat labs in 3-6 months-Patient verbalized understanding of plan. . URI - Pt advised t o increase fluids, vitamin C. Discussed natural and expected course of this diagnosis and need to alert me if symptoms do not follow expected course, or if any worse. RX sent to patient's pharmacy. Let me know if you a re [...] in the nasal steroid allergy spray. . PNEUMONIA - PT IS CLINICALLY SYMPTOMATIC [...] . Occult blood negat cassy x3. . Bronchitis - acute case of bronchitis [...]
--- OUTSIDE RECORDS SUMMARY | 2019-03-16 12:38 | XMS REPORT | CCD ---
Author Author Farshad Camacho Organization Trina Camacho MD, [facility] Address [address] [place] [address] Phone Care Team Providers Care Intelligence Research Specialist Name Role Phone PP Unavailable CCM Unavailable Summary Purpose Interface Exchange Insurance Providers Payer name Policy type / Coverage type Covered democrat ID Effective Begin Date Effective End Date WPS Medicare Part B Medicare Part B [id number] Unknown Cigna Medicare Part B 80 [id number] Unknown Family history Brother Diagnosis Age At Onset lung cancer Unknown Alcoholism Unknown Mother Diagnosis Age At Onset Cancer Unknown Pancratic cancer Unknown Arthritis Unknown Father Diagnosis Age At Onset Alcoholism Unknown Social History Social History Element Codes Description Effective Dates Marital status Unknown M alberto Rice 03/01/2014 Number of children Unknown 3 and 3 step 03/01/[address]: 1543436 Former smoker quit 199603/01/2014 Allergies, Adverse Reactions, [...] 40 mg/mL russell pension for injection RxNorm: 4866717 Milliliter(s) Inj 06/21/2018 06/21/2018 In active doxycycline hyclate 100 mg tablet RxNorm: 8803752 1 Tablet(s) PO BID 06/21/2018 06/27/2018 Active Tamiflu 75 mg capsule RxNorm: 726539 1 Capsule(s) PO BID 05/14/2018 05/18/2018 Inactive Kenalog 40 mg/mL russell pension for injection RxNorm: 6381779 Milliliter(s) Inj 05/14/2018 05/14/2018 In active prednisone 10 mg tablet RxNorm: 188414 Tablet(s) PO UD 03/11/2018 06/20/2018 Inactive 60,50,40,30,20,10 Kenalog 40 mg/mL russell pension for injection RxNorm: 5307219 1 Milliliter(s) Inj 03/11/2018 03/11/2018 In active Keflex 500 mg capsule RxNorm: 969252 1 Capsule(s) PO TID 03/11/2018 03/20/2018 Inactive Symbicort 160 mcg-4. 5 mcg/actuation HFA aerosol inhaler RxNorm: 0728804 2 Puff(s) INH BID 02/10/2018 No Stop Date Active Keflex 500 mg capsule RxNorm: 633625 1 Capsule(s) PO TID 02/10/2018 02/19/2018 Inactive prednisone 10 mg tablet RxNorm: 069915 Tablet(s) PO UD start on 11/1902/10/2018 03/09/2018 Inactive 60,50,40,30,20,10 Advair Diskus 250 mc g-50 mcg/dose powder for inhalation RxNorm: 5067511 1 Puff(s) INH BID 12/29/2017 No Stop Date Active Zithromax Z-Poncho 250 mg tablet RxNorm: 264184 1 Tablet(s) PO UD 12/29/2017 01/02/2018 Inactive zpack Tessalon Perles 100 mg capsule RxNorm: 522499 1-2 Capsule(s) PO TID as needed 12/29/2017 01/02/2018 In active allopurinol 300 mg t ablet RxNorm: 244616 Tablet(s) TAKE ONE TA BLET BY MOUTH ONCE DAILY 12/10/2017 No Stop Date Active Kenalog 40 mg/mL russell pension for injection RxNorm: 7161261 1.5 Milliliter(s) In j 12/03/2017 12/03/2017 In active allopurinol 300 mg t ablet RxNorm: 489608 TAKE ONE TABLET BY MO UTH ONCE DAILY 09/08/2017 12/09/2017 In active allopurinol 300 mg t ablet RxNorm: 492389 TAKE ONE TABLET BY MO UTH ONCE DAILY 06/15/2017 09/07/2017 In active Keflex 500 mg capsule RxNorm: 727241 1 Capsule(s) PO TID 05/04/2017 05/13/2017 Inactive Kenalog 40 mg/mL russell pension for injection RxNorm: 6423710 1 Milliliter(s) Inj 03/17/2017 03/17/2017 In active Keflex 500 mg capsule RxNorm: 193837 1 Capsule(s) PO TID 03/13/2017 03/12/2017 Inactive Keflex 500 mg capsule RxNorm: 957667 1 Capsule(s) PO TID 03/13/2017 03/22/2017 Inactive prednisone 10 mg tablet RxNorm: 296169 Tablet(s) PO UD start on 11/1911/18/2016 12/23/2016 Inactive 60,50,40,30,20,10 Advair Diskus 250 mc g-50 mcg/dose powder for inhalation RxNorm: 1827527 1 Puff(s) INH BID 11/18/2016 12/28/2017 Inactive doxycycline hyclate 100 mg capsule RxNorm: 3340570 1 Capsule(s) PO BID 11/18/2016 11/27/2016 In active Kenalog 40 mg/mL russell pension for injection RxNorm: 5572348 Milliliter(s) Inj 11/18/2016 11/18/2016 In active nystatin 100,000 uni t/mL oral suspension RxNorm: 010815 5 Milliliter(s) PO QI D 05/20/2016 05/29/2016 In active allopurinol 300 mg t ablet RxNorm: 428223 TAKE ONE TABLET BY MO UTH ONCE DAILY 05/11/2016 05/05/2017 In active Tessalon Perles 100 mg capsule RxNorm: 614490 1-2 Capsule(s) PO TID as needed 04/29/2016 05/03/2016 In active Prilosec OTC 20 mg t ablet,delayed release RxNorm: 492628 Tablet(s) PO 04/28/2016 11/16/2016 In active doxycycline hyclate 100 mg capsule RxNorm: 6753178 1 Capsule(s) PO BID 04/28/2016 05/07/2016 In active Tamiflu 75 mg capsule RxNorm: 834197 1 Capsule(s) PO BID 04/07/2016 04/11/2016 Inactive Tamiflu 75 mg capsule RxNorm: 879264 1 Capsule(s) PO BID 04/07/2016 04/06/2016 Inactive prednisone 20 mg tablet RxNorm: 005821 1 Tablet(s) PO BID 04/04/2016 04/08/2016 Inactive Kenalog 40 mg/mL russell pension for injection RxNorm: 8816004 1 Milliliter(s) Inj 03/24/2016 03/24/2016 In active cefdinir 300 mg capsule RxNorm: 974083 1 Capsule(s) PO BID 03/24/2016 03/30/2016 Inactive Zithromax Z-Poncho 250 mg tablet RxNorm: 376539 1 Tablet(s) PO UD 03/24/2016 03/28/2016 Inactive zpack cefdinir 300 mg capsule RxNorm: 734045 1 Capsule(s) PO BID 03/24/2016 03/23/2016 Inactive Flonase Allergy Reli ef 50 mcg/actuation nasal spray,suspension RxNorm: 6401924 1 Prichard NASAL BID 02/13/2016 No Stop Date Active doxycycline hyclate 100 mg capsule RxNorm: 9163812 1 Capsule(s) PO BID 02/13/2016 02/19/2016 In active lisinopril 5 mg tablet RxNorm: 985612 1 Tablet(s) PO BID TAKE ONE TABLET BY [facility] TWICE DAILY 11/20/2015 05/12/2016 Inactive hold until patient calls fo r refill doxycycline hyclate 100 mg capsule RxNorm: 0847334 1 Capsule(s) PO BID 08/02/2015 08/08/2015 In active Kenalog 40 mg/mL russell pension for injection RxNorm: 0111941 Milliliter(s) Inj 08/02/2015 08/02/2015 In active lisinopril 5 mg tablet RxNorm: 153683 TAKE ONE TABLET BY MOUTH TWICE DAILY 06/11/2015 11/19/2015 In active allopurinol 300 mg t ablet RxNorm: 359695 1 Tablet(s) PO daily 05/08/2015 05/01/2016 Inactive lisinopril 5 mg tablet RxNorm: 174194 1 Tablet(s) PO BID 01/30/2015 05/29/2015 Inactive [AttnRPh: Saving apply/adjudicate RxGRP:SG20 RxBIN:[id number] RxPCN: ID#:[id number]] Zithromax Z-Poncho 250 mg tablet RxNorm: 017258 1 Tablet(s) PO UD 01/10/2015 03/23/2016 Inactive zpack allopurinol 300 mg t ablet RxNorm: 043689 1 Tablet(s) PO daily 10/31/2014 04/28/2015 Inactive lisinopril 5 mg tablet RxNorm: 631839 1 Tablet(s) PO BID 07/31/2014 11/27/2014 Inactive [AttnRPh: Saving apply/adjudicate RxGRP:SG20 RxBIN:[id number] RxPCN: ID#:[id number]] allopurinol 300 mg t ablet RxNorm: 719673 1 Tablet(s) PO daily 05/17/2014 10/30/2014 Inactive lisinopril 5 mg tablet RxNorm: 096861 1 Tablet(s) PO BID 03/01/2014 06/28/2014 Inactive [SAVINGS FOR UNINSURED PATIENTS -- BIN:[id number], PCN: [id number], Group: [id number], ID# [id number], Process claim through [employer], for questions: . THIS IS NOT INSURANCE.] Fish Oil 1,000 mg ca psule RxNorm: 3 Capsule(s) PO daily No Start Date Active B Complex 1 oral RxNorm: 40729 oral No Start Date Active Vitamin D3 1,000 uni t capsule RxNorm: 917757 2 Capsule(s) PO daily No Start Date Active Zyrtec 10 mg capsule RxNorm: 3738548 1 Capsule(s) PO daily No Start Date Active fenofibrate nanocrys tallized 48 mg tablet RxNorm: 037688 1 Tablet(s) PO daily No Start Date Active metoprolol tartrate 25 mg tablet RxNorm: 583351 1 Tablet(s) PO daily No Start Date Active multivitamin tablet RxNorm: 1 Tablet(s) PO daily No Start Date Active pravastatin 40 mg ta blet RxNorm: 667940 1 Tablet(s) PO daily No Start Date Active Tessalon Perles 100 mg capsule RxNorm: 006424 1-2 Capsule(s) PO TID as needed No Start Date 04/28/2016 Inactive allopurinol 300 mg t ablet RxNorm: 978655 1 Tablet(s) PO daily No Start Date 05/16/2014 Inactive metformin 500 mg tablet RxNorm: 299918 1 Tablet(s) PO BID No Start Date 02/14/2014 Inactive pioglitazone 15 mg t ablet RxNorm: 482931 1 Tablet(s) PO daily No Start Date 07/30/2014 Inactive lisinopril 5 mg tablet RxNorm: 596470 1 Tablet(s) PO daily No Start Date 02/28/2014 Inactive losartan 25 mg tablet RxNorm: 092974 1/2 Tablet(s) PO daily No Start Date 01/12/2018 Inactive Zithromax Z-Poncho 250 mg tablet RxNorm: 782012 1 Tablet(s) PO UD No Start Date 01/09/2015 Inactive zpack Medication Administered Medication Codes Instruc tions Start Date Status Kenalog 40 mg/mL suspension for injection RxNorm: 8311674 Milliliter 06/21/2018 Ac tive Kenalog 40 mg/mL suspension for injection RxNorm: 2217901 Milliliter 05/14/2018 No longer Active Kenalog 40 mg/mL suspension for injection RxNorm: 4956687 1Milliliter 03/11/2018 N o longer Active Kenalog 40 mg/mL suspension for injection RxNorm: 0240209 1.5Milliliter 12/03/2017 No longer Active Kenalog 40 mg/mL suspension for injection RxNorm: 2055154 1Milliliter 03/17/2017 N o longer Active Kenalog 40 mg/mL suspension for injection RxNorm: 1741063 Milliliter 11/18/2016 No longer Active Kenalog 40 mg/mL suspension for injection RxNorm: 0182929 1Milliliter 03/24/2016 N o longer Active Kenalog 40 mg/mL suspension for injection RxNorm: 7996370 Milliliter 08/02/2015 No longer Active Immunizations Vaccine [...] Observation Code Item Item Code Result Date Lipid Ord30 CHOL 161 mg/dL 06/09/2018 Lipid Ord30 HDL 41.0 mg/dl 06/09/2018 Lipid Ord30 TRIG 122 mg/dL 06/09/2018 Lipid Ord30 LDL 96 mg/dL 06/09/2018 Lipid Ord30 C/HDL 3.9 Ratio 06/09/2018 Comp Metabolic Ayz809 NA 141 mEq/L 06/09/2018 Comp Metabolic Ylw643 K 4.4 mEq/L 06/09/2018 Comp Metabolic Wjc384 CL 105 mEq/L 06/09/2018 Comp Metabolic Eaj337 CO2 27.0 mEq/L 06/09/2018 Comp Metabolic Qid285 AN ION GAP 13 06/09/2018 Comp Metabolic Hbq607 GL UCOSE 118 mg/dL 06/09/2018 Comp Metabolic Lhs828 Cr eat 1.4 mg/dL 06/09/2018 Comp Metabolic Luz382 eG FR 54 ml/min/1.73m2 06/09 Comp Metabolic Opm369 BUN 15 mg/dL 06/09/2018 Comp Metabolic Kqg926 B/ C Ratio 10.8 Ratio 06/09/2018 Comp Metabolic Wmg515 CA LCIUM 9.0 mg/dL 06/09/2018 Comp Metabolic Uch983 AL K PHOS 77 U/L 06/09/2018 Comp Metabolic Fhr332 T(SGOT) 24 U/L 06/09/2018 Comp Metabolic Krk416 AL T(SGPT) 32 U/L 06/09/2018 Comp Metabolic Frl064 BI LI T 0.6 mg/dL 06/09/2018 Comp Metabolic Xbn198 AL BUMIN 4.0 g/dL 06/09/2018 Comp Metabolic Ztc177 TP RO 6.9 g/dL 06/09/2018 Comp Metabolic Gpu854 GL OB 3.0 g/dL 06/09/2018 Comp Metabolic Dko438 A/ G Ratio 1.3 Ratio 06/09/2018 Comp Metabolic Qmv260 Os mo 283 mOsmo 06/09/2018 Comp Metabolic Iki233 NA 136 mEq/L 12/22/2017 Comp Metabolic Hsi661 K 4.2 mEq/L 12/22/2017 Comp Metabolic Mqt205 CL 105 mEq/L 12/22/2017 Comp Metabolic Ygx869 CO2 30.0 mEq/L 12/22/2017 Comp Metabolic Icg619 AN ION GAP 5 12/22/2017 Comp Metabolic Xev045 GL UCOSE 85 mg/dL 12/22/2017 Comp Metabolic Wyh436 Cr eat 1.2 mg/dL 12/22/2017 Comp Metabolic Xfj589 eG FR 62 ml/min/1.73m2 12/22 Comp Metabolic Qax150 BUN 17 mg/dL 12/22/2017 Comp Metabolic Ovc024 B/ C Ratio 13.9 Ratio 12/22/2017 Comp Metabolic Wrj338 CA LCIUM 9.3 mg/dL 12/22/2017 Comp Metabolic Kab993 AL K PHOS 78 U/L 12/22/2017 Comp Metabolic Cdi506 T(SGOT) 24 U/L 12/22/2017 Comp Metabolic Knv948 AL T(SGPT) 28 U/L 12/22/2017 Comp Metabolic Lbq205 BI LI T 0.5 mg/dL 12/22/2017 Comp Metabolic Hcm996 AL BUMIN 4.0 g/dL 12/22/2017 Comp Metabolic Adh098 TP RO 6.6 g/dL 12/22/2017 Comp Metabolic Dyq730 GL OB 2.6 g/dL 12/22/2017 Comp Metabolic Pcz253 A/ G Ratio 1.6 Ratio 12/22/2017 Comp Metabolic Hol335 Os mo 273 mOsmo 12/22/2017 Cbc With [...] 31.9 pg 12/22/2017 Cbc With Differential Ord2 [place]% 6.3 % 12/22/2017 Cbc With Differential Ord2 [...] 1.92 K/ul 12/22/2017 Cbc With Differential Ord2 [place] ABS# 0.6 K/ul 12/22/2017 Cbc With Differential Ord2 Eos ABS# 0.3 K/ul 12/22/2017 Cbc With Differential Ord2 Baso ABS# 0.0 K/ul 12/22/2017 Comp Metabolic Lhb956 NA 135 mEq/L 06/22/2017 Comp Metabolic Mrp944 K 4.2 mEq/L 06/22/2017 Comp Metabolic Hqp884 CL 101 mEq/L 06/22/2017 Comp Metabolic Nps811 CO2 27.0 mEq/L 06/22/2017 Comp Metabolic Yem907 AN ION GAP 11 06/22/2017 Comp Metabolic Pts518 GL UCOSE 89 mg/dL 06/22/2017 Comp Metabolic Ele757 Cr eat 1.5 mg/dL 06/22/2017 Comp Metabolic Mcn777 eG FR 51 ml/min/1.73m2 06/22 Comp Metabolic Tyc148 BUN 16 mg/dL 06/22/2017 Comp Metabolic Ale695 B/ C Ratio 11.0 Ratio 06/22/2017 Comp Metabolic Fpv942 CA LCIUM 8.9 mg/dL 06/22/2017 Comp Metabolic Sbq050 AL K PHOS 79 U/L 06/22/2017 Comp Metabolic Bbo756 T(SGOT) 26 U/L 06/22/2017 Comp Metabolic Wus300 AL T(SGPT) 26 U/L 06/22/2017 Comp Metabolic Uxi243 BI LI T 0.4 mg/dL 06/22/2017 Comp Metabolic Zty057 AL BUMIN 4.1 g/dL 06/22/2017 Comp Metabolic Xxx669 TP RO 6.9 g/dL 06/22/2017 Comp Metabolic Upv699 GL OB 2.8 g/dL 06/22/2017 Comp Metabolic Kwt046 A/ G Ratio 1.5 Ratio 06/22/2017 Comp Metabolic Rks924 Os mo 271 mOsmo 06/22/2017 Cbc With [...] 32.6 pg 06/22/2017 Cbc With Differential Ord2 [place]% 7.9 % 06/22/2017 Cbc With Differential Ord2 [...] 2.14 K/ul 06/22/2017 Cbc With Differential Ord2 [place] ABS# 0.8 K/ul 06/22/2017 Cbc With Differential [...] 33.2 pg 12/25/2015 Cbc With Differential Ord2 [place]% 7.6 % 12/25/2015 Cbc With Differential Ord2 [...] 1.86 K/ul 12/25/2015 Cbc With Differential Ord2 [place] ABS# 0.6 K/ul 12/25/2015 Cbc With Differential Ord2 Eos ABS# 0.2 K/ul 12/25/2015 Cbc With Differential Ord2 Baso ABS# 0.1 K/ul 12/25/2015 Comp Metabolic Orz715 NA 136 mEq/L 12/25/2015 Comp Metabolic Suu263 K 4.2 mEq/L 12/25/2015 Comp Metabolic Xpj878 CL 104 mEq/L 12/25/2015 Comp Metabolic Fae346 CO2 26.0 mEq/L 12/25/2015 Comp Metabolic Sej639 AN ION GAP 10 12/25/2015 Comp Metabolic Dal697 GL UCOSE 104 mg/dL 12/25/2015 Comp Metabolic Fvy229 Cr eat 1.3 mg/dL 12/25/2015 Comp Metabolic Bbn235 eG FR 59 ml/min/1.73m2 12/24 Comp Metabolic Eqp883 BUN 23 mg/dL 12/25/2015 Comp Metabolic Krl331 B/ C Ratio 18.0 Ratio 12/25/2015 Comp Metabolic Mdb230 CA LCIUM 9.1 mg/dL 12/25/2015 Comp Metabolic Eyt577 AL K PHOS 76 U/L 12/25/2015 Comp Metabolic Vbf875 T(SGOT) 30 U/L 12/25/2015 Comp Metabolic Ipb816 AL T(SGPT) 28 U/L 12/25/2015 Comp Metabolic Iqw846 BI LI T 0.3 mg/dL 12/25/2015 Comp Metabolic Ekp596 AL BUMIN 4.0 g/dL 12/25/2015 Comp Metabolic Lkz271 TP RO 6.6 g/dL 12/25/2015 Comp Metabolic Rsb567 GL OB 2.6 g/dL 12/25/2015 Comp Metabolic Lpe942 A/ G Ratio 1.5 Ratio 12/25/2015 Comp Metabolic Rqt786 Os mo 276 mOsmo 12/25/2015 Cbc With [...] 32.4 pg 06/25/2015 Cbc With Differential Ord2 [place]% 7.1 % 06/25/2015 Cbc With Differential Ord2 [...] 2.18 K/ul 06/25/2015 Cbc With Differential Ord2 [place] ABS# 0.7 K/ul 06/25/2015 Cbc With Differential Ord2 Eos ABS# 0.2 K/ul 06/25/2015 Cbc With Differential Ord2 Baso ABS# 0.0 K/ul 06/25/2015 Cbc With Differential Ord2 New Analyzer Notice Please note new ref ranges s tarting 03-28-2015 due to implemntation of new five part differential hematolgy analyzer. 06/25/2015 %Hba1C Aiq440 % HbA1c 56765-4 6.1 % 06/25/2015 %Hba1C Rkp936 Gluc Ave 128 mg/dL 06/25/2015 Comp Metabolic Kuv349 NA 135 mEq/L 06/25/2015 Comp Metabolic Kxq138 K 4.3 mEq/L 06/25/2015 Comp Metabolic Tuo323 CL 102 mEq/L 06/25/2015 Comp Metabolic Xvo670 CO2 26.0 mEq/L 06/25/2015 Comp Metabolic Aes211 AN ION GAP 11 06/25/2015 Comp Metabolic Phd979 GL UCOSE 81 mg/dL 06/25/2015 Comp Metabolic Uvr271 Cr eat 1.5 mg/dL 06/25/2015 Comp Metabolic Qlz929 eG FR 49 ml/min/1.73m2 06/24 Comp Metabolic Ynx379 BUN 20 mg/dL 06/25/2015 Comp Metabolic Han257 B/ C Ratio 13.2 Ratio 06/25/2015 Comp Metabolic Nfn605 CA LCIUM 9.5 mg/dL 06/25/2015 Comp Metabolic Gts341 AL K PHOS 65 U/L 06/25/2015 Comp Metabolic Fkd250 T(SGOT) 25 U/L 06/25/2015 Comp Metabolic Vxx466 AL T(SGPT) 29 U/L 06/25/2015 Comp Metabolic Esn578 BI LI T 0.4 mg/dL 06/25/2015 Comp Metabolic Odh891 AL BUMIN 4.4 g/dL 06/25/2015 Comp Metabolic Kcm796 TP RO 7.3 g/dL 06/25/2015 Comp Metabolic Sez425 GL OB 3.0 g/dL 06/25/2015 Comp Metabolic Hfm487 A/ G Ratio 1.5 Ratio 06/25/2015 Comp Metabolic Sle023 Os mo 272 mOsmo 06/25/2015 Tsh Ord6 hTSH II 3.03 uIU/mL 06/25/2015 Lipid Ord30 CHOL 150 mg/dL 06/22/2015 Lipid Ord30 HDL 34.0 mg/dl 06/22/2015 Lipid Ord30 TRIG 149 mg/dL 06/22/2015 Lipid Ord30 LDL 86 mg/dL 06/22/2015 Lipid Ord30 C/HDL 4.4 Ratio 06/22/2015 Hepatic Xjc026 ALBUMIN 4.3 g/dL 06/22/2015 Hepatic Dfg210 TPRO 7.0 g/dL 06/22/2015 Hepatic Ihq740 GLOB 2.8 g/dL 06/22/2015 Hepatic Tro279 A/G Ratio 1.5 Ratio 06/22/2015 Hepatic Wtm085 ALK PHOS 65 U/L 06/22/2015 Hepatic Jvn860 ALT(SGPT) 33 U/L 06/22/2015 Hepatic Cna044 AST(SGOT) 28 U/L 06/22/2015 Hepatic Yxo868 BILI T 0.5 mg/dL 06/22/2015 Hepatic Bpy283 BILI D 0.1 mg/dL 06/22/2015 Hepatic Clv187 BILI I 0.4 mg/dL 06/22/2015 Review of [...] normal 01/13/2018 None Full Exam - General 1995 Ears/Nose/Throat lips/teeth/gingiva Overall: benign lips 01/13/2018 None [...] CPT-4: J3301 06/21/2018 THER/PROPH/DIAG INJ SC/IM CPT-4: 63320 05/14/2018 TRIAMCINOLONE ACET I [place] NOS CPT-4: J3301 05/14/2018 TRIAMCINOLONE ACET I [place] NOS CPT-4: J3301 03/11/2018 THER/PROPH/DIAG INJ SC/IM CPT-4: 21386 03/11/2018 PPPS, SUBSEQ VISIT CPT- 4: G0439 01/13/2018 TRIAMCINOLONE ACET I [place] NOS CPT-4: J3301 12/03/2017 THER/PROPH/DIAG INJ SC/IM CPT-4: 87661 12/03/2017 TRIAMCINOLONE ACET I [place] NOS CPT-4: J3301 06/24/2017 TRIAMCINOLONE ACET I [place] NOS CPT-4: J3301 03/17/2017 TRIAMCINOLONE ACET I [place] NOS CPT-4: J3301 11/18/2016 TRIAMCINOLONE ACET I [place] NOS CPT-4: J3301 03/24/2016 THER/PROPH/DIAG INJ SC/IM CPT-4: 59479 03/24/2016 TRIAMCINOLONE ACET I [place] NOS CPT-4: J3301 08/02/2015 OCCULT BLOOD FECES CPT- 4: 81350 08/03/2014 INITIAL PREVENTIVE EXAM CPT-4: G0402 07/31/2014 Vital Signs Date Vital 06/21/2018 Blood Pressure 1: 130/80 Code: 8480-6 Heart Rate 1: 94 bpm Height: 5'10" SpO2: 95% Weight: 05/14/2018 Blood Pressure 1: 144/84 Code: 8480-6 Heart Rate 1: 70 bpm Height: SpO2: 95% Weight: 03/11/2018 Blood Pressure 1: 134/76 Code: 8480-6 BMI: 35.7 Code: 77388-8 Heart Rate 1: 60 bpm Height: 5'10" SpO2: 96% Weight: 249 lbs 02/10/2018 Blood Pressure 1: 140/72 Code: 8480-6 BMI: 33.7 Code: 95559-3 Heart Rate 1: 48 bpm Height: 5'10" SpO2: 95% Temperature: 36.6 (C ) / 97.8 (F) Weight: 235 lbs 01/13/2018 Blood Pressure 1: 118/66 Code: 8480-6 BMI: 33.3 Code: 37907-2 Heart Rate 1: 57 bpm Height: 5'10" SpO2: 98% Waist Measure (cm): 97 cm Weight: 232 lbs 12/23/2017 Blood Pressure 1: 120/62 Code: 8480-6 BMI: 33.7 Code: 61793-0 Heart Rate 1: 58 bpm Height: 5'10" SpO2: 96% Weight: 235 lbs 06/24/2017 Blood Pressure 1: 136/74 Code: 8480-6 BMI: 38.7 Code: 72014-0 Heart Rate 1: 75 bpm Height: 5'10" SpO2: 98% Weight: 270 lbs 03/17/2017 Blood Pressure 1: 138/78 Code: 8480-6 Heart Rate 1: 65 bpm SpO2: 97% Temperature: 36.6 (C ) / 97.8 (F) 12/24/2016 Blood Pressure 1: 134/78 Code: 8480-6 BMI: 37.2 Code: 48662-0 Heart Rate 1: 56 bpm Height: 5'10" SpO2: 98% Weight: 259 lbs 11/18/2016 Blood Pressure 1: 130/72 Code: 8480-6 BMI: 37.3 Code: 03388-0 Heart Rate 1: 70 bpm Height: 5'10" SpO2: 95% Weight: 260 lbs 06/24/2016 Blood Pressure 1: 134/80 Code: 8480-6 BMI: 38.3 Code: 88460-7 Heart Rate 1: 66 bpm Height: 5'10" SpO2: 98% Weight: 267 lbs 05/20/2016 Blood Pressure 1: 138/82 Code: 8480-6 BMI: 37.4 Code: 09536-3 Heart Rate 1: 65 bpm Height: 5'10" SpO2: 100% Weight: 261 lbs 05/09/2016 Blood Pressure 1: 154/78 Code: 8480-6 Heart Rate 1: 82 bpm Height: SpO2: 89% Temperature: 36.2 (C ) / 97.2 (F) Weight: 04/28/2016 Blood Pressure 1: 112/62 Code: 8480-6 BMI: 37.9 Code: 50943-1 Heart Rate 1: 73 bpm Height: 5'10" SpO2: 94% Temperature: 37.2 (C ) / 98.9 (F) Weight: 264 lbs 04/04/2016 Blood Pressure 1: 150/86 Code: 8480-6 Blood Pressure 1: 148/86 Code: 8480-6 Heart Rate 1: 71 bpm SpO2: 93% SpO2: 95% Temperature: 37.2 (C ) / 99.0 (F) 03/28/2016 Blood Pressure 1: 156/74 Code: 8480-6 BMI: 38.0 Code: 71941-1 Heart Rate 1: 84 bpm Height: 5'10" SpO2: 95% Weight: 265 lbs 02/13/2016 Blood Pressure 1: 118/62 Code: 8480-6 BMI: 39.2 Code: 15555-3 Heart Rate 1: 65 bpm Height: 5'10" SpO2: 96% Weight: 273 lbs 08/02/2015 Blood Pressure 1: 150/82 Code: 8480-6 BMI: 38.3 Code: 72108-8 Heart Rate 1: 75 bpm Height: 5'10" SpO2: 93% Weight: 267 lbs 06/22/2015 Blood Pressure 1: 138/80 Code: 8480-6 BMI: 38.7 Code: 04911-0 Heart Rate 1: 76 bpm Height: 5'10" SpO2: 96% Weight: 270 lbs 07/31/2014 Blood Pressure 1: 138/70 Code: 8480-6 BMI: 37.7 Code: 59252-0 Heart Rate 1: 70 bpm Height: 5'10" Respiratory Rate: 20 bpm Weight: 263 lbs 03/20/2014 Blood Pressure 1: 142/80 Code: 8480-6 BMI: 37.7 Code: 31270-8 Heart Rate 1: 64 bpm Height: 5'10" Weight: 263 lbs 03/01/2014 Blood Pressure 1: 150/90 Code: 8480-6 Blood Pressure 2: 140/80 Code: 8480-6 BMI: 37.3 Code: 68401-3 Heart Rate 1: 56 bpm Height: 5'10" [...] ago 04/28/2016 None cough Location in the [facility] 04/04/2016 None cough Location in the roat [...] Encounter Performer Loca tion Codes Date () [id number] EST. P ATIENT, LEVEL III Diagnosis: Essential (primary) hypertension[ICD10: I10] Diagnosis: Cough[ICD10: R05] Diagnosis: Cellulitis of right finger[ICD10: L03.011] Diagnosis: Other allergic rhinitis[ICD10: J30.89] Susu Camacho MD, [facility] CPT-4: 28800 06/21/2018 [id number] EST. PATIENT, LEVEL III Diagnosis: Acute laryngopharyngitis[ICD10: J06.0] Diagnosis: Other allergic rhinitis[ICD10: J30.89] Diagnosis: Cough[ICD10: R05] Lulu Camacho MD, [facility] CPT-4: 09762 05/14/2018 [id number] EST. PATIENT, LEVEL IV Diagnosis: Other acute sinusitis[ICD10: J01.80] Diagnosis: Other allergic rhinitis[ICD10: J30.89] Diagnosis: Cough[ICD10: R05] Lulu Camacho MD, [facility] CPT-4: 18518 03/11/2018 [id number] EST. PATIENT, LEVEL IV Diagnosis: Other acute sinusitis[ICD10: J01.80] Diagnosis: Other allergic rhinitis[ICD10: J30.89] Lulu Camacho MD, [facility] CPT-4: 30383 02/10/2018 ([id number]) 53614 EST. P ATIENT, LEVEL IV Diagnosis: Essential (primary) hypertension[ICD10: I10] Diagnosis: Mixed hyperlipidemia[ICD10: E78.2] Diagnosis: Nonrheumatic aortic (valve) stenosis[ICD10: I35.0] Trina Camacho MD, C CPT-4: 02868 12/23/2017 ([id number]) PER PM REEVA Marcus EST PAT 65+ YR Diagnosis: Encounter for general adult medical examination with abnormal findings[ICD10: Z00.01] Trina Camacho MD, [facility] CPT-4: 60023 06/24/2017 ([id number]) Patient adm itted to the hospital from clinic (NO CHARGE) Diagnosis: [ICD9: ] Diagnosis: Essential (primary) hypertension[ICD10: I10] Diagnosis: Other allergic rhinitis[ICD10: J30.89] Diagnosis: Cough[ICD10: R05] Diagnosis: Mixed hyperlipidemia[ICD10: E78.2] Trina Camacho MD, [facility] CPT- 4: 78062O 06/24/2017 [id number] EST. PATIENT, LEVEL IV Diagnosis: Other acute sinusitis[ICD10: J01.80] Diagnosis: Other allergic rhinitis[ICD10: J30.89] Lulu Camacho MD, [facility] CPT-4: 88361 03/17/2017 ([id number]) [id number] EST. P ATIENT, LEVEL IV Diagnosis: Essential (primary) hypertension[ICD10: I10] Diagnosis: Mixed hyperlipidemia[ICD10: E78.2] Trina Camacho MD, [facility] CPT- 4: 88651 12/24/2016 [id number] EST. PATIENT, LEVEL IV Diagnosis: Acute bronchitis due to other specified organisms[ICD10: J20.8] Lulu Camacho MD, [facility] CPT-4: 55548 11/18/2016 ([id number]) 77906 EST. P ATIENT, LEVEL III Diagnosis: Essential (primary) hypertension[ICD10: I10] Trina Camacho MD, [facility] CPT-4: 65256 06/24/2016 ([id number]) 55121 EST. P ATIENT, LEVEL III Diagnosis: Essential (primary) hypertension[ICD10: I10] Diagnosis: Cough[ICD10: R05] Diagnosis: Candidal stomatitis[ICD10: B37.0] Trina Camacho MD, [facility] CPT-4: 98132 05/20/2016 ([id number]) Patient adm itted to the hospital from clinic (NO CHARGE) Diagnosis: Pneumonia, unspecified organism[ICD10: J18.9] Diagnosis: Cough[ICD10: R05] Trina Camacho MD, [facility] CPT-4: [id number] 05/09/2016 83315 EST. PATIENT, LEVEL III Diagnosis: Acute laryngopharyngitis[ICD10: J06.0] Diagnosis: Cough[ICD10: R05] Lulu Camacho MD, [facility] CPT-4: 93465 04/28/2016 ([id number]) 72905 EST. P ATIENT, LEVEL III Diagnosis: Cough[ICD10: R05] Diagnosis: Essential (primary) hypertension[ICD10: I10] Susu Camacho MD, [facility] CPT-4: 72735 04/04/2016 ([id number]) 54694 EST. P ATIENT, LEVEL III Diagnosis: Cough[ICD10: R05] Diagnosis: Pneumonia, unspecified organism[ICD10: J18.9] Susu Camacho MD, [facility] CPT-4: 60523 03/28/2016 66906 EST. PATIENT, LEVEL IV Diagnosis: Other allergic rhinitis[ICD10: J30.89] Diagnosis: Other acute sinusitis[ICD10: J01.80] Lulu Camacho MD, [facility] CPT- 4: [id number] 02/13/2016 [id number] EST. PATIENT, LEVEL IV Diagnosis: Acute bronchitis due to other specified organisms[ICD10: J20.8] Diagnosis: Other acute sinusitis[ICD10: J01.80] Diagnosis: Other allergic rhinitis[ICD10: J30.89] [facility] CPT-4: 32260 08/02/2015 ([id number]) [id number] EST. P ATIENT, LEVEL IV Diagnosis: Essential (primary) hypertension[ICD10: I10] Diagnosis: Mixed hyperlipidemia[ICD10: E78.2] Diagnosis: Impaired fasting glucose[ICD10: R73.01] [facility]u [facility] CPT-4: 52451 06/22/2015 ([id number]) [id number] EST. P ATIENT, LEVEL IV Diagnosis: ESSENTIAL HYPERTENSION[ICD9: 401.9] Diagnosis: Aortic stenosis[ICD9: 424.1] Diagnosis: Hyperlipidemia[ICD9: 272.4] Trina Camacho MD, [facility] CPT-4: 97134 03/20/2014 ([id number]) OFFICE [place] Last [facility] - LEVEL 4 Diagnosis: ESSENTIAL HYPERTENSION[ICD9: 401.9] Diagnosis: DIABETES TYPE II[ICD9: 250.00] Diagnosis: Heart murmur[ICD9: 785.2] Diagnosis: Snoring[ICD9: 786.09] Diagnosis: Sleep-disordered breathing[ICD9: 780.59] Trina Camacho MD, Eric CPT-4: 50441 03/01/2014 Plan of Care Planned Activity Notes [...] not resolve or if any worse 06/21/2018 Patient Education: Patient Medication Summary Completed [...] allergy spray. 05/14/2018 Appointment: Lulu Mann WPtel: [address] [place] [address] (15 min) Moderate 05/14/2018 Patient Education: Patient [...] allergy spray. 03/11/2018 Appointment: Lulu Mann WPtel: [address] [place] [address] (15 min) Moderate 03/11/2018 Patient Education: Patient [...] allergy spray. 02/10/2018 Appointment: Lulu Mann WPtel: [facility] [place] [facility] [place] [address] (15 min) Moderate 02/10/2018 Patient Education: Patient [...] Completed 01/13/2018 Visit Plan: Hypertension - well jinny rosas - continue with current medications, continue with [...] activity 12/23/2017 Appointment[id number] (15 min) Moderate 12/23/2017 Patient Education: Patient [...] inhales bid. 06/24/2017 Appointment: Trina Camacho WPtel: [address] [place] [address] (15 min) Moderate 06/24/2017 Patient Education: Patient [...] spray. 03/17/2017 Appointment: Lulu Mann WPtel: [phone] [id number] (15 min) Moderate 03/17/2017 Patient Education: Patient Medication Summary Completed 03/17/2017 Visit Plan: Hypertension - omega rosas - continue with current medications, continue with [...] medications. 12/24/2016 Appointment: Trina Camacho WPtel: [phone] [facility] (15 min) Moderate 12/24/2016 Patient Education: Patient [...] acutely worsen. 11/18/2016 Appointment: Lulu Mann WPtel: [phone] [id number] (30 min) Complex 11/18/2016 Patient Education: Patient [...] at home. 06/24/2016 Appointment: Trina Camacho WPtel: [phone] [facility] (15 min) Moderate 06/24/2016 Patient Education: Patient [...] and swallow 05/20/2016 Appointment: Trina Camacho WPtel: [phone] [facility] (15 min) Moderate 05/20/2016 Patient Education: Patient Medication Summary Completed 05/20/2016 Patient Education: Obesity Completed 05/20/2016 Patient Education: Hypertension Completed 05/20/2016 Visit Plan: PNEUMONIA - PT IS CLINI [facility] SYMPTOMATIC FOR PNEUMONIA - A CHEST XRAY, SPUTUM C AND S, BLOOD CULTURES, AND LABS HAVE BEEN ORDERED IN ORDER TO FURTHER WORK-UP THE ACUTE ILLNESS. 05/09/2016 Appointment: Susu Mills WPtel: [address] [place], [place] [phone] (15 min) Moderate 05/09/2016 Patient Education: Patient Medication Summary Completed 05/09/2016 Visit Plan: URI - Pt advised to inc rease fluids, vitamin C. Discussed natural and expected course of this diagnosis and need to alert me if symptoms do not follow expected course, or if any worse. RX sent to patient's pharmacy. 04/28/2016 Appointment: Lulu Mann WPtel: [facility] [place] [facility] [place] [facility] (15 min) Moderate 04/28/2016 Patient Education: Patient [...] understanding. 04/04/2016 Appointment: Susu Mills WPtel: [address] [place] [phone] [place] (10 min) Simple 04/04/2016 Patient Education: Patient Medication Summary Completed 04/04/2016 Patient Education: Hypertension Completed 04/04/2016 Visit Plan: Pneumonia-cough- improv ing-finish abx and call if symptoms do not completely resolved-patient verbalized understanding of plan. 03/28/2016 Appointment: Susu Mills WPtel: [address] [place], [place] [phone] [place] (30 min) Complex 03/28/2016 Patient Education: Patient Medication Summary Completed 03/28/2016 Patient Education: Obesity Completed 03/28/2016 Visit Plan: Cough-kenalog injection today-start abx as directed-f/u , sooner if needed 03/24/2016 Appointment: Susu Mills WPtel: [address] [place], [place] [phone] [place] (10 min) Simple 03/24/2016 Patient Education: Patient [...] improvement. 02/13/2016 Appointment: Susu Mills WPtel: [phone] [place] [phone] (15 min) Moderate 02/13/2016 Patient Education: Patient [...] spray. 08/02/2015 Appointment: Lulu Mann WPtel: [phone] (15 min) Moderate 08/02/2015 Patient Education: Patient [...] Patient Medication Summary Completed 07/31/2014 Patient Education: [facility] - Saving [employer] - Lisinopril - 18+ - Dynamic Portal ID Completed 07/31/2014 Visit Plan: NXP-esngnxzr-ckzje slig htly elevated-patient tolerated lisinopril 5mg BID well, did not tolerate 10mg daily in the past. Recommend he monitor blood pressure and pulse at home and bring in readings for review. Aortic Stenosis-recommend stress test-refer to Dr Avilez for evaluation Hyperlipidemia-continue statin medication-increase exercise and weight loss-low fat diet. Repeat labs in 3-6 months-Patient verbalized understanding of plan. 03/20/2014 Visit Plan: YAU-vqmejznl-olrpc slig htly elevated-patient tolerated lisinopril 5mg BID well, did not tolerate 10mg daily in the past. Recommend he monitor blood pressure and pulse at home and bring in readings for review. Aortic Stenosis-recommend stress test-refer to Dr Avilez for evaluation Hyperlipidemia-continue statin medication-increase exercise and weight loss-low fat diet. Repeat labs in 3-6 months-Patient verbalized understanding of plan. Daytime vvetlcgcyrl-jgpgvax-wuggzil-refer for sleep study 03/20/2014 Appointment: Follow up 03/20/2014 Patient Education: Patient Medication Summary Completed 03/20/2014 Care Plan: Referral Order SNOMED-CT : [id number] Ordered 03/20/2014 Visit Plan: Hypertension - uncontro [...] previous physician. 03/01/2014 Appointment: Trina Camacho WPtel: [facility] [place] [facility] [place] [facility] [facility] 03/01/2014 Patient Education: Patient Medication Summary Completed 03/01/2014 Patient Education: Hypertension Completed 03/01/2014 Referral: Dr Avilez Referral Initiated Instructions Comment . HAO-ccpcuicb-ovenw slightly elevated-patient tolerated lisinopril 5mg BID well, did not tolerate 10mg daily in the past. Recommend he monitor blood pressure and pulse at home and bring in readings for review. Aortic Stenosis-recommend stress test-refer to Dr Avilez for evaluation Hyperlipidemia-continue statin medication-increase exercise and weight loss-low fat diet. Repeat labs in 3-6 months-Patient verbalized understanding of plan. . PLG-jmumkzdh-azhsd slightly elevated-patient tolerated lisinopril 5mg BID well, did not tolerate 10mg daily in the past. Recommend he monitor blood pressure and pulse at home and bring in readings for review. Aortic Stenosis-recommend stress test-refer to Dr Avilez for evaluation Hyperlipidemia-continue statin medication-increase exercise and weight loss-low fat diet. Repeat labs in 3-6 months-Patient verbalized understanding of plan. Daytime azcofwhplfd-pohzjbn-semquai-refer for sleep study . Sinusitis - Pt [...]
--- OUTSIDE RECORDS SUMMARY | 2019-03-16 12:39 | XMS REPORT | CCD ---
Author Author Farshad Camacho Organization Trina Camacho MD, [facility] Address [address] [place] [address] Phone Care Team Providers Care Computer Assembler Name Role Phone PP Unavailable CCM Unavailable Summary Purpose Interface Exchange Insurance Providers Payer name Policy type / Coverage type Covered libertarian ID Effective Begin Date Effective End Date WPS Medicare Part B Medicare Part B [id number] Unknown Cigna Medicare Part B 80 [id number] Unknown Family history Brother Diagnosis Age At Onset lung cancer Unknown Alcoholism Unknown Mother Diagnosis Age At Onset Cancer Unknown Pancratic cancer Unknown Arthritis Unknown Father Diagnosis Age At Onset Alcoholism Unknown Social History Social History Element Codes Description Effective Dates Marital status Unknown M alberto Rice 03/01/2014 Number of children Unknown 3 and 3 step 03/01/[address]: 7032416 Former smoker quit 199603/01/2014 Allergies, Adverse Reactions, [...] Condition Status Onset Date Resolved Date Acute laryngopharyng itis ICD-9: 465.0 ICD-10: J06.0 Active 05/14/2018 Unknown Cough ICD-9: 786.2 ICD-10: R05 Active 03/11/2018 Unknown Other allergic rhinitis ICD-9: 477.8 ICD-10: J30.89 Active 02/10/2018 Unknown Other acute sinusitis ICD-9: 461.8 ICD-10: [...] TYPE II ICD-9: 250.00 Inactive 03/01/2014 Unknown Essential (primary) hypertension ICD-9: 401.9 ICD-10: I10 Inactive 04/03/2016 Unknown Hyperlipidemia ICD-9: 272.4 Inactive 03/20/2014 Unknown [...] Codes Effectiv e Dates Condition Status Acute laryngopharyng itis ICD-9: 465.0 ICD-10: J06.0 05/14/2018 Active Cough ICD-9: 786.2 ICD-10: R05 03/11/2018 Active Other allergic rhinitis ICD-9: 477.8 ICD-10: J30.89 02/10/2018 Active Other acute sinusitis ICD-9: 461.8 ICD-10: [...] DIABETES TYPE II ICD-9: 250.00 03/01/2014 Inactive Essential (primary) hypertension ICD-9: 401.9 ICD-10: I10 04/03/2016 Inactive Hyperlipidemia ICD-9: 272.4 03/20/2014 Inactive Acute [...] Date Stop Date Sta tus Fill Instructions Tamiflu 75 mg capsule RxNorm: 454292 1 Capsule(s) PO BID 05/14/2018 05/18/2018 Inactive Kenalog 40 mg/mL [employer] pension for injection RxNorm: 5324491 Milliliter(s) Inj 05/14/2018 05/14/2018 In active prednisone 10 mg tablet RxNorm: 763670 Tablet(s) PO UD 03/11/2018 No Stop Date Active 60,50,40,30,20,10 Kenalog 40 mg/mL [employer] pension for injection RxNorm: 8239032 1 Milliliter(s) Inj 03/11/2018 03/11/2018 In active Keflex 500 mg capsule RxNorm: 787454 1 Capsule(s) PO TID 03/11/2018 03/20/2018 Inactive Symbicort 160 mcg-4. 5 mcg/actuation HFA aerosol inhaler RxNorm: 7011523 2 Puff(s) INH BID 02/10/2018 No Stop Date Active Keflex 500 mg capsule RxNorm: 496262 1 Capsule(s) PO TID 02/10/2018 02/19/2018 Inactive prednisone 10 mg tablet RxNorm: 769638 Tablet(s) PO UD start on 11/1902/10/2018 03/09/2018 Inactive 60,50,40,30,20,10 Advair Diskus 250 mc g-50 mcg/dose powder for inhalation RxNorm: 9661095 1 Puff(s) INH BID 12/29/2017 No Stop Date Active Zithromax Z-Poncho 250 mg tablet RxNorm: 995547 1 Tablet(s) PO UD 12/29/2017 01/02/2018 Inactive zpack Tessalon Perles 100 mg capsule RxNorm: 806688 1-2 Capsule(s) PO TID as needed 12/29/2017 01/02/2018 In active allopurinol 300 mg t ablet RxNorm: 163718 Tablet(s) TAKE ONE TA BLET BY MOUTH ONCE DAILY 12/10/2017 No Stop Date Active Kenalog 40 mg/mL [employer] pension for injection RxNorm: 1336797 1.5 Milliliter(s) In j 12/03/2017 12/03/2017 In active allopurinol 300 mg t ablet RxNorm: 606092 TAKE ONE TABLET BY MO UTH ONCE DAILY 09/08/2017 12/09/2017 In active allopurinol 300 mg t ablet RxNorm: 807742 TAKE ONE TABLET BY MO UTH ONCE DAILY 06/15/2017 09/07/2017 In active Keflex 500 mg capsule RxNorm: 613229 1 Capsule(s) PO TID 05/04/2017 05/13/2017 Inactive Kenalog 40 mg/mL [employer] pension for injection RxNorm: 5193893 1 Milliliter(s) Inj 03/17/2017 03/17/2017 In active Keflex 500 mg capsule RxNorm: 365237 1 Capsule(s) PO TID 03/13/2017 03/12/2017 Inactive Keflex 500 mg capsule RxNorm: 720717 1 Capsule(s) PO TID 03/13/2017 03/22/2017 Inactive prednisone 10 mg tablet RxNorm: 763551 Tablet(s) PO UD start on 11/1911/18/2016 12/23/2016 Inactive 60,50,40,30,20,10 Advair Diskus 250 mc g-50 mcg/dose powder for inhalation RxNorm: 1271425 1 Puff(s) INH BID 11/18/2016 12/28/2017 Inactive doxycycline hyclate 100 mg capsule RxNorm: 9003459 1 Capsule(s) PO BID 11/18/2016 11/27/2016 In active Kenalog 40 mg/mL [employer] pension for injection RxNorm: 0097639 Milliliter(s) Inj 11/18/2016 11/18/2016 In active nystatin 100,000 uni t/mL oral suspension RxNorm: 145558 5 Milliliter(s) PO QI D 05/20/2016 05/29/2016 In active allopurinol 300 mg t ablet RxNorm: 462654 TAKE ONE TABLET BY [facility] ONCE DAILY 05/11/2016 05/05/2017 In active Tessalon Perles 100 mg capsule RxNorm: 348072 1-2 Capsule(s) PO TID as needed 04/29/2016 05/03/2016 In active Prilosec OTC 20 mg t ablet,delayed release RxNorm: 557291 Tablet(s) PO 04/28/2016 11/16/2016 In active doxycycline hyclate 100 mg capsule RxNorm: 6946624 1 Capsule(s) PO BID 04/28/2016 05/07/2016 In active Tamiflu 75 mg capsule RxNorm: 486725 1 Capsule(s) PO BID 04/07/2016 04/11/2016 Inactive Tamiflu 75 mg capsule RxNorm: 063749 1 Capsule(s) PO BID 04/07/2016 04/06/2016 Inactive prednisone 20 mg tablet RxNorm: 524960 1 Tablet(s) PO BID 04/04/2016 04/08/2016 Inactive Kenalog 40 mg/mL [employer] pension for injection RxNorm: 3565405 1 Milliliter(s) Inj 03/24/2016 03/24/2016 In active cefdinir 300 mg capsule RxNorm: 069990 1 Capsule(s) PO BID 03/24/2016 03/30/2016 Inactive Zithromax Z-Poncho 250 mg tablet RxNorm: 658325 1 Tablet(s) PO UD 03/24/2016 03/28/2016 Inactive zpack cefdinir 300 mg capsule RxNorm: 397856 1 Capsule(s) PO BID 03/24/2016 03/23/2016 Inactive Flonase Allergy Reli ef 50 mcg/actuation nasal spray,suspension RxNorm: 4328688 1 [place] NASAL BID 02/13/2016 No Stop Date Active doxycycline hyclate 100 mg capsule RxNorm: 2063644 1 Capsule(s) PO BID 02/13/2016 02/19/2016 In active lisinopril 5 mg tablet RxNorm: 460035 1 Tablet(s) PO BID TAKE ONE TABLET BY MO UTH TWICE DAILY 11/20/2015 05/12/2016 Inactive hold until patient calls fo r refill doxycycline hyclate 100 mg capsule RxNorm: 4496134 1 Capsule(s) PO BID 08/02/2015 08/08/2015 In active Kenalog 40 mg/mL [employer] pension for injection RxNorm: 6542271 Milliliter(s) Inj 08/02/2015 08/02/2015 In active lisinopril 5 mg tablet RxNorm: 022269 TAKE ONE TABLET BY MOUTH TWICE DAILY 06/11/2015 11/19/2015 In active allopurinol 300 mg t ablet RxNorm: 629216 1 Tablet(s) PO daily 05/08/2015 05/01/2016 Inactive lisinopril 5 mg tablet RxNorm: 416899 1 Tablet(s) PO BID 01/30/2015 05/29/2015 Inactive [AttnRPh: Saving apply/adjudicate RxGRP:SG20 RxBIN:[id number] RxPCN: ID#:[id number]] Zithromax Z-Poncho 250 mg tablet RxNorm: 977580 1 Tablet(s) PO UD 01/10/2015 03/23/2016 Inactive zpack allopurinol 300 mg t ablet RxNorm: 520186 1 Tablet(s) PO daily 10/31/2014 04/28/2015 Inactive lisinopril 5 mg tablet RxNorm: 365144 1 Tablet(s) PO BID 07/31/2014 11/27/2014 Inactive [AttnRPh: Saving apply/adjudicate RxGRP:SG20 RxBIN:[id number] RxPCN: ID#:[id number]] allopurinol 300 mg t ablet RxNorm: 969973 1 Tablet(s) PO daily 05/17/2014 10/30/2014 Inactive lisinopril 5 mg tablet RxNorm: 878135 1 Tablet(s) PO BID 03/01/2014 06/28/2014 Inactive [SAVINGS FOR UNINSURED PATIENTS -- BIN:[id number], PCN: [id number], Group: [id number], ID# [id number], Process claim through [employer], for questions: . THIS IS NOT INSURANCE.] Fish Oil 1,000 mg ca psule RxNorm: 3 Capsule(s) PO daily No Start Date Active B Complex 1 oral RxNorm: 37900 oral No Start Date Active Vitamin D3 1,000 uni t capsule RxNorm: 074267 2 Capsule(s) PO daily No Start Date Active Zyrtec 10 mg capsule RxNorm: 6116501 1 Capsule(s) PO daily No Start Date Active fenofibrate nanocrys tallized 48 mg tablet RxNorm: 377483 1 Tablet(s) PO daily No Start Date Active metoprolol tartrate 25 mg tablet RxNorm: 447922 1 Tablet(s) PO daily No Start Date Active multivitamin tablet RxNorm: 1 Tablet(s) PO daily No Start Date Active pravastatin 40 mg ta blet RxNorm: 129825 1 Tablet(s) PO daily No Start Date Active Tessalon Perles 100 mg capsule RxNorm: 529161 1-2 Capsule(s) PO TID as needed No Start Date 04/28/2016 Inactive allopurinol 300 mg t ablet RxNorm: 032914 1 Tablet(s) PO daily No Start Date 05/16/2014 Inactive metformin 500 mg tablet RxNorm: 856385 1 Tablet(s) PO BID No Start Date 02/14/2014 Inactive pioglitazone 15 mg t ablet RxNorm: 311712 1 Tablet(s) PO daily No Start Date 07/30/2014 Inactive lisinopril 5 mg tablet RxNorm: 489367 1 Tablet(s) PO daily No Start Date 02/28/2014 Inactive losartan 25 mg tablet RxNorm: 831902 1/2 Tablet(s) PO daily No Start Date 01/12/2018 Inactive Zithromax Z-Poncho 250 mg tablet RxNorm: 877405 1 Tablet(s) PO UD No Start Date 01/09/2015 Inactive zpack Medication Administered Medication Codes Instruc tions Start Date Status Kenalog 40 mg/mL suspension for injection RxNorm: 7931021 Milliliter 05/14/2018 No longer Active Kenalog 40 mg/mL suspension for injection RxNorm: 2917462 1Milliliter 03/11/2018 N o longer Active Kenalog 40 mg/mL suspension for injection RxNorm: 6375243 1.5Milliliter 12/03/2017 No longer Active Kenalog 40 mg/mL suspension for injection RxNorm: 7680359 1Milliliter 03/17/2017 N o longer Active Kenalog 40 mg/mL suspension for injection RxNorm: 6222335 Milliliter 11/18/2016 No longer Active Kenalog 40 mg/mL suspension for injection RxNorm: 9223133 1Milliliter 03/24/2016 N o longer Active Kenalog 40 mg/mL suspension for injection RxNorm: 0722017 Milliliter 08/02/2015 No longer Active Immunizations Vaccine Codes Date Status Influenza CVX: 141 12/18 completed Influenza CVX: 141 12/14 completed Pneumococcal CVX: 33 03/2012 completed Zoster CVX: 121 11/15/19 13 completed Assessments Condition Codes Effectiv e Dates Acute laryngopharyngitis ICD-10: J06 .0 ICD-9: 465.0 05/14/2018 Other allergic rhinitis ICD-10: J30. 89 ICD-9: 477.8 05/14/2018 Cough ICD-10: R05 ICD-9: 786.2 05/14/2018 Other acute sinusitis ICD-10: J01.80 ICD-9: [...] Candidal stomatitis ICD-10: B37.0 ICD-9: 112.0 05/20/2016 Essential (primary) hypertension ICD -10: I10 ICD-9: 401.9 05/20/2016 Pneumonia, unspecified organism ICD- 10: J18.9 [...] Reason For Visit Effective Dates Notes cough 05/14/2018 sinus congestion 03/11/2018 sinus congestion [...] Item Item Code Result Date Comp Metabolic Utj082 NA 141 mEq/L 06/09/2018 Comp Metabolic Vbo341 K 4.4 mEq/L 06/09/2018 Comp Metabolic Ipf386 CL 105 mEq/L 06/09/2018 Comp Metabolic Ihu167 CO2 27.0 mEq/L 06/09/2018 Comp Metabolic Xbw143 AN ION GAP 13 06/09/2018 Comp Metabolic Cxv138 GL UCOSE 118 mg/dL 06/09/2018 Comp Metabolic Urm207 Cr eat 1.4 mg/dL 06/09/2018 Comp Metabolic Vzn973 eG FR 54 ml/min/1.73m2 06/09 Comp Metabolic Kzp861 BUN 15 mg/dL 06/09/2018 Comp Metabolic Snx234 B/ C Ratio 10.8 Ratio 06/09/2018 Comp Metabolic Mou826 CA LCIUM 9.0 mg/dL 06/09/2018 Comp Metabolic Evs312 AL K PHOS 77 U/L 06/09/2018 Comp Metabolic Kvs084 T(SGOT) 24 U/L 06/09/2018 Comp Metabolic Bfx701 AL T(SGPT) 32 U/L 06/09/2018 Comp Metabolic Dtt302 BI LI T 0.6 mg/dL 06/09/2018 Comp Metabolic Jho060 AL BUMIN 4.0 g/dL 06/09/2018 Comp Metabolic Poi315 TP RO 6.9 g/dL 06/09/2018 Comp Metabolic Erl615 GL OB 3.0 g/dL 06/09/2018 Comp Metabolic Ish369 A/ G Ratio 1.3 Ratio 06/09/2018 Comp Metabolic Hrc081 Os mo 283 mOsmo 06/09/2018 Comp Metabolic Vuo336 NA 136 mEq/L 12/22/2017 Comp Metabolic Kgf689 K 4.2 mEq/L 12/22/2017 Comp Metabolic Eka215 CL 105 mEq/L 12/22/2017 Comp Metabolic Agv907 CO2 30.0 mEq/L 12/22/2017 Comp Metabolic Kuv541 AN ION GAP 5 12/22/2017 Comp Metabolic Zqf785 GL UCOSE 85 mg/dL 12/22/2017 Comp Metabolic Jet627 Cr eat 1.2 mg/dL 12/22/2017 Comp Metabolic Eox535 eG FR 62 ml/min/1.73m2 12/22 Comp Metabolic Iip093 BUN 17 mg/dL 12/22/2017 Comp Metabolic Muy154 B/ C Ratio 13.9 Ratio 12/22/2017 Comp Metabolic Xrq351 CA LCIUM 9.3 mg/dL 12/22/2017 Comp Metabolic Hkh717 AL K PHOS 78 U/L 12/22/2017 Comp Metabolic Jwv076 T(SGOT) 24 U/L 12/22/2017 Comp Metabolic Qsh004 AL T(SGPT) 28 U/L 12/22/2017 Comp Metabolic Gnq097 BI LI T 0.5 mg/dL 12/22/2017 Comp Metabolic Ele079 AL BUMIN 4.0 g/dL 12/22/2017 Comp Metabolic Ykf569 TP RO 6.6 g/dL 12/22/2017 Comp Metabolic Idf786 GL OB 2.6 g/dL 12/22/2017 Comp Metabolic Qoz921 A/ G Ratio 1.6 Ratio 12/22/2017 Comp Metabolic Eqf538 Os mo 273 mOsmo 12/22/2017 Cbc With [...] 31.9 pg 12/22/2017 Cbc With Differential Ord2 [place]% 6.3 % 12/22/2017 Cbc With Differential Ord2 [...] 1.92 K/ul 12/22/2017 Cbc With Differential Ord2 [place] ABS# 0.6 K/ul 12/22/2017 Cbc With Differential Ord2 Eos ABS# 0.3 K/ul 12/22/2017 Cbc With Differential Ord2 Baso ABS# 0.0 K/ul 12/22/2017 Comp Metabolic Ner357 NA 135 mEq/L 06/22/2017 Comp Metabolic Vbd048 K 4.2 mEq/L 06/22/2017 Comp Metabolic Ree310 CL 101 mEq/L 06/22/2017 Comp Metabolic Wee010 CO2 27.0 mEq/L 06/22/2017 Comp Metabolic Wcw873 AN ION GAP 11 06/22/2017 Comp Metabolic Brl598 GL UCOSE 89 mg/dL 06/22/2017 Comp Metabolic Bam013 Cr eat 1.5 mg/dL 06/22/2017 Comp Metabolic Owr820 eG FR 51 ml/min/1.73m2 06/22 Comp Metabolic Man733 BUN 16 mg/dL 06/22/2017 Comp Metabolic Igm307 B/ C Ratio 11.0 Ratio 06/22/2017 Comp Metabolic Rbz230 CA LCIUM 8.9 mg/dL 06/22/2017 Comp Metabolic Iap682 AL K PHOS 79 U/L 06/22/2017 Comp Metabolic Iyb279 T(SGOT) 26 U/L 06/22/2017 Comp Metabolic Bsm560 AL T(SGPT) 26 U/L 06/22/2017 Comp Metabolic Amw191 BI LI T 0.4 mg/dL 06/22/2017 Comp Metabolic Ctn829 AL BUMIN 4.1 g/dL 06/22/2017 Comp Metabolic Pvw227 TP RO 6.9 g/dL 06/22/2017 Comp Metabolic Yoi361 GL OB 2.8 g/dL 06/22/2017 Comp Metabolic Hvp676 A/ G Ratio 1.5 Ratio 06/22/2017 Comp Metabolic Blu035 Os mo 271 mOsmo 06/22/2017 Cbc With [...] 32.6 pg 06/22/2017 Cbc With Differential Ord2 [place]% 7.9 % 06/22/2017 Cbc With Differential Ord2 [...] 2.14 K/ul 06/22/2017 Cbc With Differential Ord2 [place] ABS# 0.8 K/ul 06/22/2017 Cbc With Differential [...] 33.2 pg 12/25/2015 Cbc With Differential Ord2 [place]% 7.6 % 12/25/2015 Cbc With Differential Ord2 [...] 1.86 K/ul 12/25/2015 Cbc With Differential Ord2 [place] ABS# 0.6 K/ul 12/25/2015 Cbc With Differential Ord2 Eos ABS# 0.2 K/ul 12/25/2015 Cbc With Differential Ord2 Baso ABS# 0.1 K/ul 12/25/2015 Comp Metabolic Vtr058 NA 136 mEq/L 12/25/2015 Comp Metabolic Jin173 K 4.2 mEq/L 12/25/2015 Comp Metabolic Cpk989 CL 104 mEq/L 12/25/2015 Comp Metabolic Mlx312 CO2 26.0 mEq/L 12/25/2015 Comp Metabolic Vur077 AN ION GAP 10 12/25/2015 Comp Metabolic Rel989 GL UCOSE 104 mg/dL 12/25/2015 Comp Metabolic Kiq346 Cr eat 1.3 mg/dL 12/25/2015 Comp Metabolic Xih552 eG FR 59 ml/min/1.73m2 12/24 Comp Metabolic Bdo837 BUN 23 mg/dL 12/25/2015 Comp Metabolic Luy497 B/ C Ratio 18.0 Ratio 12/25/2015 Comp Metabolic Rrw965 CA LCIUM 9.1 mg/dL 12/25/2015 Comp Metabolic Acw261 AL K PHOS 76 U/L 12/25/2015 Comp Metabolic Wog091 T(SGOT) 30 U/L 12/25/2015 Comp Metabolic Gvk300 AL T(SGPT) 28 U/L 12/25/2015 Comp Metabolic Rvn774 BI LI T 0.3 mg/dL 12/25/2015 Comp Metabolic Bts698 AL BUMIN 4.0 g/dL 12/25/2015 Comp Metabolic Abw880 TP RO 6.6 g/dL 12/25/2015 Comp Metabolic Ivh160 GL OB 2.6 g/dL 12/25/2015 Comp Metabolic Yup398 A/ G Ratio 1.5 Ratio 12/25/2015 Comp Metabolic Myp091 Os mo 276 mOsmo 12/25/2015 Cbc With [...] 32.4 pg 06/25/2015 Cbc With Differential Ord2 [place]% 7.1 % 06/25/2015 Cbc With Differential Ord2 [...] 2.18 K/ul 06/25/2015 Cbc With Differential Ord2 [place] ABS# 0.7 K/ul 06/25/2015 Cbc With Differential Ord2 Eos ABS# 0.2 K/ul 06/25/2015 Cbc With Differential Ord2 Baso ABS# 0.0 K/ul 06/25/2015 Cbc With Differential Ord2 New Analyzer Notice Please note new ref ranges s tarting 03-28-2015 due to implemntation of new five part differential hematolgy analyzer. 06/25/2015 %Hba1C Ofm045 % HbA1c 89565-0 6.1 % 06/25/2015 %Hba1C Cte310 Gluc Ave 128 mg/dL 06/25/2015 Comp Metabolic Xsx848 NA 135 mEq/L 06/25/2015 Comp Metabolic Ilb211 K 4.3 mEq/L 06/25/2015 Comp Metabolic Oqn225 CL 102 mEq/L 06/25/2015 Comp Metabolic Xcs272 CO2 26.0 mEq/L 06/25/2015 Comp Metabolic Zxo858 AN ION GAP 11 06/25/2015 Comp Metabolic Ffe111 GL UCOSE 81 mg/dL 06/25/2015 Comp Metabolic Ncx117 Cr eat 1.5 mg/dL 06/25/2015 Comp Metabolic Thi142 eG FR 49 ml/min/1.73m2 06/24 Comp Metabolic Ufl321 BUN 20 mg/dL 06/25/2015 Comp Metabolic Cux700 B/ C Ratio 13.2 Ratio 06/25/2015 Comp Metabolic Iab975 CA LCIUM 9.5 mg/dL 06/25/2015 Comp Metabolic Wel034 AL K PHOS 65 U/L 06/25/2015 Comp Metabolic Atw780 T(SGOT) 25 U/L 06/25/2015 Comp Metabolic Rhg962 AL T(SGPT) 29 U/L 06/25/2015 Comp Metabolic Isk742 BI LI T 0.4 mg/dL 06/25/2015 Comp Metabolic Msh846 AL BUMIN 4.4 g/dL 06/25/2015 Comp Metabolic Vhq661 TP RO 7.3 g/dL 06/25/2015 Comp Metabolic Uqn662 GL OB 3.0 g/dL 06/25/2015 Comp Metabolic Wkt504 A/ G Ratio 1.5 Ratio 06/25/2015 Comp Metabolic Ybg711 Os mo 272 mOsmo 06/25/2015 Tsh Ord6 hTSH II 3.03 uIU/mL 06/25/2015 Lipid Ord30 CHOL 150 mg/dL 06/22/2015 Lipid Ord30 HDL 34.0 mg/dl 06/22/2015 Lipid Ord30 TRIG 149 mg/dL 06/22/2015 Lipid Ord30 LDL 86 mg/dL 06/22/2015 Lipid Ord30 C/HDL 4.4 Ratio 06/22/2015 Hepatic Syh443 ALBUMIN 4.3 g/dL 06/22/2015 Hepatic Num762 TPRO 7.0 g/dL 06/22/2015 Hepatic Dhu599 GLOB 2.8 g/dL 06/22/2015 Hepatic Eca045 A/G Ratio 1.5 Ratio 06/22/2015 Hepatic Yfk572 ALK PHOS 65 U/L 06/22/2015 Hepatic Siw334 ALT(SGPT) 33 U/L 06/22/2015 Hepatic Khq696 AST(SGOT) 28 U/L 06/22/2015 Hepatic Yfc647 BILI T 0.5 mg/dL 06/22/2015 Hepatic Nca908 BILI D 0.1 mg/dL 06/22/2015 Hepatic Mhs783 BILI I 0.4 mg/dL 06/22/2015 Review of Systems System Result Effective Dates Constitutional recent illness 05/14/2018 Constitutional chills Constitutional [...] Result Effective Dates Notes Full Exam - ENT Constitutional general appearance [...] atraumatic 03/01/2014 None Procedures Procedure Codes Date THER/PROPH/DIAG INJ SC/IM CPT-4: 22341 05/14/2018 TRIAMCINOLONE ACET I [place] NOS CPT-4: J3301 05/14/2018 TRIAMCINOLONE ACET I [place] NOS CPT-4: J3301 03/11/2018 THER/PROPH/DIAG INJ SC/IM CPT-4: 37070 03/11/2018 PPPS, SUBSEQ VISIT CPT- 4: G0439 01/13/2018 TRIAMCINOLONE ACET I [place] NOS CPT-4: J3301 12/03/2017 THER/PROPH/DIAG INJ SC/IM CPT-4: 59308 12/03/2017 TRIAMCINOLONE ACET I [place] NOS CPT-4: J3301 06/24/2017 TRIAMCINOLONE ACET I [place] NOS CPT-4: J3301 03/17/2017 TRIAMCINOLONE ACET I [place] NOS CPT-4: J3301 11/18/2016 TRIAMCINOLONE ACET I [place] NOS CPT-4: J3301 03/24/2016 THER/PROPH/DIAG INJ SC/IM CPT-4: 21198 03/24/2016 TRIAMCINOLONE ACET I [place] NOS CPT-4: J3301 08/02/2015 OCCULT BLOOD FECES CPT- 4: 77658 08/03/2014 INITIAL PREVENTIVE EXAM CPT-4: G0402 07/31/2014 Vital Signs Date Vital 05/14/2018 Blood Pressure 1: 144/84 Code: 8480-6 Heart Rate 1: 70 bpm Height: SpO2: 95% Weight: 03/11/2018 Blood Pressure 1: 134/76 Code: 8480-6 BMI: 35.7 Code: 42581-7 Heart Rate 1: 60 bpm Height: 5'10" SpO2: 96% Weight: 249 lbs 02/10/2018 Blood Pressure 1: 140/72 Code: 8480-6 BMI: 33.7 Code: 34941-3 Heart Rate 1: 48 bpm Height: 5'10" SpO2: 95% Temperature: 36.6 (C ) / 97.8 (F) Weight: 235 lbs 01/13/2018 Blood Pressure 1: 118/66 Code: 8480-6 BMI: 33.3 Code: 75117-5 Heart Rate 1: 57 bpm Height: 5'10" SpO2: 98% Waist Measure (cm): 97 cm Weight: 232 lbs 12/23/2017 Blood Pressure 1: 120/62 Code: 8480-6 BMI: 33.7 Code: 04901-6 Heart Rate 1: 58 bpm Height: 5'10" SpO2: 96% Weight: 235 lbs 06/24/2017 Blood Pressure 1: 136/74 Code: 8480-6 BMI: 38.7 Code: 17192-6 Heart Rate 1: 75 bpm Height: 5'10" SpO2: 98% Weight: 270 lbs 03/17/2017 Blood Pressure 1: 138/78 Code: 8480-6 Heart Rate 1: 65 bpm SpO2: 97% Temperature: 36.6 (C ) / 97.8 (F) 12/24/2016 Blood Pressure 1: 134/78 Code: 8480-6 BMI: 37.2 Code: 15574-2 Heart Rate 1: 56 bpm Height: 5'10" SpO2: 98% Weight: 259 lbs 11/18/2016 Blood Pressure 1: 130/72 Code: 8480-6 BMI: 37.3 Code: 16187-8 Heart Rate 1: 70 bpm Height: 5'10" SpO2: 95% Weight: 260 lbs 06/24/2016 Blood Pressure 1: 134/80 Code: 8480-6 BMI: 38.3 Code: 52808-3 Heart Rate 1: 66 bpm Height: 5'10" SpO2: 98% Weight: 267 lbs 05/20/2016 Blood Pressure 1: 138/82 Code: 8480-6 BMI: 37.4 Code: 90149-4 Heart Rate 1: 65 bpm Height: 5'10" SpO2: 100% Weight: 261 lbs 05/09/2016 Blood Pressure 1: 154/78 Code: 8480-6 Heart Rate 1: 82 bpm Height: SpO2: 89% Temperature: 36.2 (C ) / 97.2 (F) Weight: 04/28/2016 Blood Pressure 1: 112/62 Code: 8480-6 BMI: 37.9 Code: 44830-0 Heart Rate 1: 73 bpm Height: 5'10" SpO2: 94% Temperature: 37.2 (C ) / 98.9 (F) Weight: 264 lbs 04/04/2016 Blood Pressure 1: 150/86 Code: 8480-6 Blood Pressure 1: 148/86 Code: 8480-6 Heart Rate 1: 71 bpm SpO2: 93% SpO2: 95% Temperature: 37.2 (C ) / 99.0 (F) 03/28/2016 Blood Pressure 1: 156/74 Code: 8480-6 BMI: 38.0 Code: 02211-4 Heart Rate 1: 84 bpm Height: 5'10" SpO2: 95% Weight: 265 lbs 02/13/2016 Blood Pressure 1: 118/62 Code: 8480-6 BMI: 39.2 Code: 76528-2 Heart Rate 1: 65 bpm Height: 5'10" SpO2: 96% Weight: 273 lbs 08/02/2015 Blood Pressure 1: 150/82 Code: 8480-6 BMI: 38.3 Code: 87955-1 Heart Rate 1: 75 bpm Height: 5'10" SpO2: 93% Weight: 267 lbs 06/22/2015 Blood Pressure 1: 138/80 Code: 8480-6 BMI: 38.7 Code: 73249-3 Heart Rate 1: 76 bpm Height: 5'10" SpO2: 96% Weight: 270 lbs 07/31/2014 Blood Pressure 1: 138/70 Code: 8480-6 BMI: 37.7 Code: 85176-6 Heart Rate 1: 70 bpm Height: 5'10" Respiratory Rate: 20 bpm Weight: 263 lbs 03/20/2014 Blood Pressure 1: 142/80 Code: 8480-6 BMI: 37.7 Code: 91640-9 Heart Rate 1: 64 bpm Height: 5'10" Weight: 263 lbs 03/01/2014 Blood Pressure 1: 150/90 Code: 8480-6 Blood Pressure 2: 140/80 Code: 8480-6 BMI: 37.3 Code: 15233-6 Heart Rate 1: 56 bpm Height: 5'10" Weight: 260 lbs Functional Status No Functional Status data History of Present Illness Symptom Name Status Resu lt Effective Date Notes Location in the lung 05/14/2018 None Quality [...] ng 04/04/2016 None cough Location in the roat [...] Encounters Encounter Performer Loca tion Codes Date [id number] EST. PATIENT, LEVEL III Diagnosis: Acute laryngopharyngitis[ICD10: J06.0] Diagnosis: Other allergic rhinitis[ICD10: J30.89] Diagnosis: Cough[ICD10: R05] [facility] CPT-4: 17965 05/14/2018 [id number] EST. PATIENT, LEVEL IV Diagnosis: Other acute sinusitis[ICD10: J01.80] Diagnosis: Other allergic rhinitis[ICD10: J30.89] Diagnosis: Cough[ICD10: R05] [facility] CPT-4: 28211 03/11/2018 24090 EST. PATIENT, LEVEL IV Diagnosis: Other acute sinusitis[ICD10: J01.80] Diagnosis: Other allergic rhinitis[ICD10: J30.89] [facility] CPT-4: 78668 02/10/2018 ([id number]) 24710 EST. P ATIENT, LEVEL IV Diagnosis: Essential (primary) hypertension[ICD10: I10] Diagnosis: Mixed hyperlipidemia[ICD10: E78.2] Diagnosis: Nonrheumatic aortic (valve) stenosis[ICD10: I35.0] Trina Camacho MD, [facility] CPT-4: 76430 12/23/2017 ([id number]) PER PM REEVA L EST PAT 65+ YR Diagnosis: Encounter for general adult medical examination with abnormal findings[ICD10: Z00.01] Trina Camacho MD, [facility] CPT-4: 38740 06/24/2017 ([id number]) Patient adm itted to the hospital from clinic (NO CHARGE) Diagnosis: [ICD9: ] Diagnosis: Essential (primary) hypertension[ICD10: I10] Diagnosis: Other allergic rhinitis[ICD10: J30.89] Diagnosis: Cough[ICD10: R05] Diagnosis: Mixed hyperlipidemia[ICD10: E78.2] Trina Camacho MD, [facility] CPT- 4: 14729O 06/24/2017 08412 EST. PATIENT, LEVEL IV Diagnosis: Other acute sinusitis[ICD10: J01.80] Diagnosis: Other allergic rhinitis[ICD10: J30.89] [facility] CPT-4: 26109 03/17/2017 ([id number]) [id number] EST. P ATIENT, LEVEL IV Diagnosis: Essential (primary) hypertension[ICD10: I10] Diagnosis: Mixed hyperlipidemia[ICD10: E78.2] Trina Camacho MD, [facility] CPT- 4: 11601 12/24/2016 14621 EST. PATIENT, LEVEL IV Diagnosis: Acute bronchitis due to other specified organisms[ICD10: J20.8] Lulu Camacho MD, [facility] CPT-4: 87607 11/18/2016 ([id number]) 44963 EST. P ATIENT, LEVEL III Diagnosis: Essential (primary) hypertension[ICD10: I10] Trina Camacho MD, [facility] CPT-4: 69808 06/24/2016 ([id number]) 64347 EST. P ATIENT, LEVEL III Diagnosis: Essential (primary) hypertension[ICD10: I10] Diagnosis: Cough[ICD10: R05] Diagnosis: Candidal stomatitis[ICD10: B37.0] Trina Camacho MD, [facility] CPT-4: 99563 05/20/2016 ([id number]) Patient adm itted to the hospital from clinic (NO CHARGE) Diagnosis: Pneumonia, unspecified organism[ICD10: J18.9] Diagnosis: Cough[ICD10: R05] Trina Camacho MD, [facility] CPT-4: 03968G 05/09/2016 [id number] EST. PATIENT, LEVEL III Diagnosis: Acute laryngopharyngitis[ICD10: J06.0] Diagnosis: Cough[ICD10: R05] Lulu Camacho MD, [facility] CPT-4: 75525 04/28/2016 ([id number]) 20803 EST. P ATIENT, LEVEL III Diagnosis: Cough[ICD10: R05] Diagnosis: Essential (primary) hypertension[ICD10: I10] Susu Camacho MD, [facility] CPT-4: 21347 04/04/2016 ([id number]) 83343 EST. P ATIENT, LEVEL III Diagnosis: Cough[ICD10: R05] Diagnosis: Pneumonia, unspecified organism[ICD10: J18.9] Susu Camacho MD, [facility] CPT-4: 00676 03/28/2016 80992 EST. PATIENT, LEVEL IV Diagnosis: Other allergic rhinitis[ICD10: J30.89] Diagnosis: Other acute sinusitis[ICD10: J01.80] Lulu Camacho MD, [facility] CPT- 4: 64165 02/13/2016 61601 EST. PATIENT, LEVEL IV Diagnosis: Acute bronchitis due to other specified organisms[ICD10: J20.8] Diagnosis: Other acute sinusitis[ICD10: J01.80] Diagnosis: Other allergic rhinitis[ICD10: J30.89] Lulu Camacho MD, [facility] CPT-4: 62854 08/02/2015 ([id number]) 32776 EST. P ATIENT, LEVEL IV Diagnosis: Essential (primary) hypertension[ICD10: I10] Diagnosis: Mixed hyperlipidemia[ICD10: E78.2] Diagnosis: Impaired fasting glucose[ICD10: R73.01] Susu Camacho MD, [facility] CPT-4: 59011 06/22/2015 ([id number]) 62278 EST. P ATIENT, LEVEL IV Diagnosis: ESSENTIAL HYPERTENSION[ICD9: 401.9] Diagnosis: Aortic stenosis[ICD9: 424.1] Diagnosis: Hyperlipidemia[ICD9: 272.4] Trina Camacho MD, [facility] CPT-4: 12026 03/20/2014 ([id number]) OFFICE VISI T, NEW - LEVEL 4 Diagnosis: ESSENTIAL HYPERTENSION[ICD9: 401.9] Diagnosis: DIABETES TYPE II[ICD9: 250.00] Diagnosis: Heart murmur[ICD9: 785.2] Diagnosis: Snoring[ICD9: 786.09] Diagnosis: Sleep-disordered breathing[ICD9: 780.59] Trina Camacho MD, [facility] CPT-4: 80582 03/01/2014 Plan of Care Planned Activity Notes C odes Status Date Visit Plan: URI - Pt advised to [...] allergy spray. 05/14/2018 Appointment: Lulu Mann WPtel: [address] [place] [address] (15 min) Moderate 05/14/2018 Patient Education: Patient [...] allergy spray. 03/11/2018 Appointment: Lulu Mann WPtel: [address] [place] [address] (15 min) Moderate 03/11/2018 Patient Education: Patient [...] allergy spray. 02/10/2018 Appointment: Lulu Mann WPtel: [facility] [address] (15 min) Moderate 02/10/2018 Patient Education: [...] Summary Completed 01/13/2018 Visit Plan: Hypertension - omega rosas - [...] increased activity 12/23/2017 Appointment: Trina Camacho WPtel: [facility] [place] (15 min) Moderate 12/23/2017 Patient [...] inhales bid. 06/24/2017 Appointment: Trina Camacho WPtel: [address] [place], [place] [address] (15 min) Moderate 06/24/2017 Patient Education: Patient [...] allergy spray. 03/17/2017 Appointment: Lulu Mann WPtel: [facility]1 [facility] (15 min) Moderate 03/17/2017 Patient Education: [...] medications. 12/24/2016 Appointment: Trina Camacho WPtel: [phone] [facility] (15 min) Moderate 12/24/2016 Patient [...] acutely worsen. 11/18/2016 Appointment: Lulu Mann WPtel: [phone] [phone] (30 min) Complex 11/18/2016 Patient Education: [...] at home. 06/24/2016 Appointment: Trina Camacho WPtel: [facility] (15 min) Moderate 06/24/2016 Patient [...] swallow 05/20/2016 Appointment: Trina Camacho WPtel: [phone] [facility] (15 min) Moderate 05/20/2016 Patient Education: Patient Medication Summary Completed 05/20/2016 Patient Education: Obesity Completed 05/20/2016 Patient Education: Hypertension Completed 05/20/2016 Visit Plan: PNEUMONIA - PT IS CLINI WESLY SYMPTOMATIC FOR PNEUMONIA - A CHEST XRAY, SPUTUM C AND S, BLOOD CULTURES, AND LABS HAVE BEEN ORDERED IN ORDER TO FURTHER WORK-UP THE ACUTE ILLNESS. 05/09/2016 Appointment: Susu Mills WPtel: [address] [place], [place] [phone] (15 min) Moderate 05/09/2016 Patient Education: Patient Medication Summary Completed 05/09/2016 Visit Plan: URI - Pt advised to inc rease fluids, vitamin C. Discussed natural and expected course of this diagnosis and need to alert me if symptoms do not follow expected course, or if any worse. RX sent to patient's pharmacy. 04/28/2016 Appointment: Lulu Mann WPtel: [address] [place] [address] (15 min) Moderate 04/28/2016 Patient Education: Patient [...] verbalized understanding. 04/04/2016 Appointment: Susu Mills WPtel: [address] [place], [place] [phone] (10 min) Simple 04/04/2016 Patient Education: Patient Medication Summary Completed 04/04/2016 Patient Education: Hypertension Completed 04/04/2016 Visit Plan: Pneumonia-cough- improv ing-finish abx and call if symptoms do not completely resolved-patient verbalized understanding of plan. 03/28/2016 Appointment: Susu Mills WPtel: [address] [place], [place] [phone] (30 min) Complex 03/28/2016 Patient Education: Patient Medication Summary Completed 03/28/2016 Patient Education: Obesity Completed 03/28/2016 Visit Plan: Cough-kenalog injection today-start abx as directed-f/u , sooner if needed 03/24/2016 Appointment: Susu Mills WPtel: [phone] [phone] (10 min) Simple 03/24/2016 Patient Education: Patient [...] improvement. 02/13/2016 Appointment: Susu Mills WPtel: [phone] [place] [phone] (15 min) Moderate 02/13/2016 Patient Education: Patient [...] spray. 08/02/2015 Appointment: [facility] Mann [facility]el[phone] (15 min) Moderate 08/02/2015 Patient Education: Patient [...] Patient Medication Summary Completed 07/31/2014 Patient Education: [facility] - Jessee Vasquezj - Lisinopril - 18+ - Dynamic Portal ID Completed 07/31/2014 Visit Plan: PZB-uwrilvgt-pmebc slig htly elevated-patient tolerated lisinopril 5mg BID well, did not tolerate 10mg daily in the past. Recommend he monitor blood pressure and pulse at home and bring in readings for review. Aortic Stenosis-recommend stress test-refer to Dr Avilez for evaluation Hyperlipidemia-continue statin medication-increase exercise and weight loss-low fat diet. Repeat labs in 3-6 months-Patient verbalized understanding of plan. Daytime zedgrvpjcby-htamzgu-znmclrf-refer for sleep study 03/20/2014 Visit Plan: IWW-ifrrlzsf-ndfvw slig htly elevated-patient tolerated lisinopril 5mg BID [...] 03/20/2014 Care Plan: Referral Order SNOMED-CT : [id number] Ordered 03/20/2014 Visit Plan: Hypertension - uncontro [...] previous physician. 03/01/2014 Appointment: Trina Camacho WPtel: [facility] [place] New Patient 03/01/2014 Patient Education: Patient Medication Summary Completed 03/01/2014 Patient Education: Hypertension Completed 03/01/2014 Referral: Dr Avilez Referral Initiated Instructions Comment . PYD-jicybksb-ztavc slightly elevated-patient tolerated lisinopril 5mg BID well, did not tolerate 10mg daily in the past. Recommend he monitor blood pressure and pulse at home and bring in readings for review. Aortic Stenosis-recommend stress test-refer to Dr Avilez for evaluation Hyperlipidemia-continue statin medication-increase exercise and weight loss-low fat diet. Repeat labs in 3-6 months-Patient verbalized understanding of plan. Daytime gysspujqymv-jwhcmof-awkhnuf-refer for sleep study . Allergies - chroni [...] in blood pressure readings at home. . Well Adult - pt wa [...] - dulera inhaler two inhales bid. . Welcome to [facility] - [...] and to maintain independece in the home. Let me know if you a re [...] his labs from his previous physician. . Cough-kenalog inje ction today-start abx as [...] in the nasal steroid allergy spray. . NTB-esuhnacp-zdekx slightly elevated-patient tolerated lisinopril 5mg BID well, did not tolerate 10mg daily in the past. Recommend he monitor blood pressure and pulse at home and bring in readings for review. Aortic Stenosis-recommend stress test-refer to Dr Avilez for evaluation Hyperlipidemia-continue statin medication-increase exercise and weight loss-low fat diet. Repeat labs in 3-6 months-Patient verbalized understanding of plan. . Pneumonia-cough- i mproving-finish abx and call [...]
--- OUTSIDE RECORDS SUMMARY | 2019-03-16 12:40 | XMS REPORT | CCD ---
Author Author Farshad Camacho Organization Trina Camacho MD, [facility] Address [address] [place] [address] Phone Care Team Providers Care Associate Java Developer Name Role Phone PP Unavailable CCM Unavailable Summary Purpose Interface Exchange Insurance Providers Payer name Policy type / Coverage type Covered libertarian ID Effective Begin Date Effective End Date WPS Medicare Part B Medicare Part B [id number] Unknown Cigna Medicare Part B 80 [id number] Unknown Family history Brother Diagnosis Age At Onset lung cancer Unknown Alcoholism Unknown Mother Diagnosis Age At Onset Cancer Unknown Pancratic cancer Unknown Arthritis Unknown Father Diagnosis Age At Onset Alcoholism Unknown Social History Social History Element Codes Description Effective Dates Marital status Unknown M alberto Rice 03/01/2014 Number of children Unknown 3 and 3 step 03/01/[address]: 0104168 Former smoker quit 199603/01/2014 Allergies, Adverse Reactions, [...] Fill Instructions Tamiflu 75 mg capsule RxNorm: 898658 1 Capsule(s) PO BID 05/14/2018 05/18/2018 Active Kenalog 40 mg/mL russell pension for injection RxNorm: 9488330 Milliliter(s) Inj 05/14/2018 05/14/2018 In active prednisone 10 mg tablet RxNorm: 688643 Tablet(s) PO UD 03/11/2018 No Stop Date Active 60,50,40,30,20,10 Kenalog 40 mg/mL russell pension for injection RxNorm: 2938076 1 Milliliter(s) Inj 03/11/2018 03/11/2018 In active Keflex 500 mg capsule RxNorm: 273339 1 Capsule(s) PO TID 03/11/2018 03/20/2018 Inactive Symbicort 160 mcg-4. 5 mcg/actuation HFA aerosol inhaler RxNorm: 4341433 2 Puff(s) INH BID 02/10/2018 No Stop Date Active Keflex 500 mg capsule RxNorm: 311189 1 Capsule(s) PO TID 02/10/2018 02/19/2018 Inactive prednisone 10 mg tablet RxNorm: 172130 Tablet(s) PO UD start on 11/1902/10/2018 03/09/2018 Inactive 60,50,40,30,20,10 Advair Diskus 250 mc g-50 mcg/dose powder for inhalation RxNorm: 4958329 1 Puff(s) INH BID 12/29/2017 No Stop Date Active Zithromax Z-Poncho 250 mg tablet RxNorm: 553646 1 Tablet(s) PO UD 12/29/2017 01/02/2018 Inactive zpack Tessalon Perles 100 mg capsule RxNorm: 445226 1-2 Capsule(s) PO TID as needed 12/29/2017 01/02/2018 In active allopurinol 300 mg t ablet RxNorm: 948048 Tablet(s) TAKE ONE TA BLET BY MOUTH ONCE DAILY 12/10/2017 No Stop Date Active Kenalog 40 mg/mL russell pension for injection RxNorm: 4232196 1.5 Milliliter(s) In j 12/03/2017 12/03/2017 In active allopurinol 300 mg t ablet RxNorm: 394218 TAKE ONE TABLET BY MO UTH ONCE DAILY 09/08/2017 12/09/2017 In active allopurinol 300 mg t ablet RxNorm: 664411 TAKE ONE TABLET BY MO UTH ONCE DAILY 06/15/2017 09/07/2017 In active Keflex 500 mg capsule RxNorm: 721047 1 Capsule(s) PO TID 05/04/2017 05/13/2017 Inactive Kenalog 40 mg/mL russell pension for injection RxNorm: 5622432 1 Milliliter(s) Inj 03/17/2017 03/17/2017 In active Keflex 500 mg capsule RxNorm: 299274 1 Capsule(s) PO TID 03/13/2017 03/12/2017 Inactive Keflex 500 mg capsule RxNorm: 038169 1 Capsule(s) PO TID 03/13/2017 03/22/2017 Inactive prednisone 10 mg tablet RxNorm: 069790 Tablet(s) PO UD start on 11/1911/18/2016 12/23/2016 Inactive 60,50,40,30,20,10 Advair Diskus 250 mc g-50 mcg/dose powder for inhalation RxNorm: 3363533 1 Puff(s) INH BID 11/18/2016 12/28/2017 Inactive doxycycline hyclate 100 mg capsule RxNorm: 2195799 1 Capsule(s) PO BID 11/18/2016 11/27/2016 In active Kenalog 40 mg/mL russell pension for injection RxNorm: 8853332 Milliliter(s) Inj 11/18/2016 11/18/2016 In active nystatin 100,000 uni t/mL oral suspension RxNorm: 146316 5 Milliliter(s) PO QI D 05/20/2016 05/29/2016 In active allopurinol 300 mg t ablet RxNorm: 329891 TAKE ONE TABLET BY [facility] ONCE DAILY 05/11/2016 05/05/2017 In active Tessalon Perles 100 mg capsule RxNorm: 307326 1-2 Capsule(s) PO TID as needed 04/29/2016 05/03/2016 In active Prilosec OTC 20 mg t ablet,delayed release RxNorm: 265397 Tablet(s) PO 04/28/2016 11/16/2016 In active doxycycline hyclate 100 mg capsule RxNorm: 6632579 1 Capsule(s) PO BID 04/28/2016 05/07/2016 In active Tamiflu 75 mg capsule RxNorm: 764407 1 Capsule(s) PO BID 04/07/2016 04/11/2016 Inactive Tamiflu 75 mg capsule RxNorm: 444342 1 Capsule(s) PO BID 04/07/2016 04/06/2016 Inactive prednisone 20 mg tablet RxNorm: 499163 1 Tablet(s) PO BID 04/04/2016 04/08/2016 Inactive Kenalog 40 mg/mL russell pension for injection RxNorm: 3345885 1 Milliliter(s) Inj 03/24/2016 03/24/2016 In active cefdinir 300 mg capsule RxNorm: 300220 1 Capsule(s) PO BID 03/24/2016 03/30/2016 Inactive Zithromax Z-Poncho 250 mg tablet RxNorm: 135979 1 Tablet(s) PO UD 03/24/2016 03/28/2016 Inactive zpack cefdinir 300 mg capsule RxNorm: 090654 1 Capsule(s) PO BID 03/24/2016 03/23/2016 Inactive Flonase Allergy Reli ef 50 mcg/actuation nasal spray,suspension RxNorm: 9021841 1 [place] NASAL BID 02/13/2016 No Stop Date Active doxycycline hyclate 100 mg capsule RxNorm: 4905920 1 Capsule(s) PO BID 02/13/2016 02/19/2016 In active lisinopril 5 mg tablet RxNorm: 290897 1 Tablet(s) PO BID TAKE ONE TABLET BY MO UTH TWICE DAILY 11/20/2015 05/12/2016 Inactive hold until patient calls fo r refill doxycycline hyclate 100 mg capsule RxNorm: 3762427 1 Capsule(s) PO BID 08/02/2015 08/08/2015 In active Kenalog 40 mg/mL russell pension for injection RxNorm: 0548505 Milliliter(s) Inj 08/02/2015 08/02/2015 In active lisinopril 5 mg tablet RxNorm: 033529 TAKE ONE TABLET BY MOUTH TWICE DAILY 06/11/2015 11/19/2015 In active allopurinol 300 mg t ablet RxNorm: 840021 1 Tablet(s) PO daily 05/08/2015 05/01/2016 Inactive lisinopril 5 mg tablet RxNorm: 305461 1 Tablet(s) PO BID 01/30/2015 05/29/2015 Inactive [AttnRPh: Saving apply/adjudicate RxGRP:SG20 RxBIN:[id number] RxPCN: ID#:[id number]] Zithromax Z-Poncho 250 mg tablet RxNorm: 985468 1 Tablet(s) PO UD 01/10/2015 03/23/2016 Inactive zpack allopurinol 300 mg t ablet RxNorm: 705726 1 Tablet(s) PO daily 10/31/2014 04/28/2015 Inactive lisinopril 5 mg tablet RxNorm: 240549 1 Tablet(s) PO BID 07/31/2014 11/27/2014 Inactive [AttnRPh: Saving apply/adjudicate RxGRP:SG20 RxBIN:[id number] RxPCN: ID#:[id number]] allopurinol 300 mg t ablet RxNorm: 410858 1 Tablet(s) PO daily 05/17/2014 10/30/2014 Inactive lisinopril 5 mg tablet RxNorm: 999045 1 Tablet(s) PO BID 03/01/2014 06/28/2014 Inactive [SAVINGS FOR UNINSURED PATIENTS -- BIN:[id number], PCN: [id number], Group: [id number], ID# [id number], Process claim through [employer]), for questions: . THIS IS NOT INSURANCE.] Fish Oil 1,000 mg ca psule RxNorm: 3 Capsule(s) PO daily No Start Date Active B Complex 1 oral RxNorm: 11311 oral No Start Date Active Vitamin D3 1,000 uni t capsule RxNorm: 568425 2 Capsule(s) PO daily No Start Date Active Zyrtec 10 mg capsule RxNorm: 7933965 1 Capsule(s) PO daily No Start Date Active fenofibrate nanocrys tallized 48 mg tablet RxNorm: 822092 1 Tablet(s) PO daily No Start Date Active metoprolol tartrate 25 mg tablet RxNorm: 832578 1 Tablet(s) PO daily No Start Date Active multivitamin tablet RxNorm: 1 Tablet(s) PO daily No Start Date Active pravastatin 40 mg ta blet RxNorm: 252901 1 Tablet(s) PO daily No Start Date Active Tessalon Perles 100 mg capsule RxNorm: 499794 1-2 Capsule(s) PO TID as needed No Start Date 04/28/2016 Inactive allopurinol 300 mg t ablet RxNorm: 945275 1 Tablet(s) PO daily No Start Date 05/16/2014 Inactive metformin 500 mg tablet RxNorm: 405435 1 Tablet(s) PO BID No Start Date 02/14/2014 Inactive pioglitazone 15 mg t ablet RxNorm: 861807 1 Tablet(s) PO daily No Start Date 07/30/2014 Inactive lisinopril 5 mg tablet RxNorm: 409309 1 Tablet(s) PO daily No Start Date 02/28/2014 Inactive losartan 25 mg tablet RxNorm: 760434 1/2 Tablet(s) PO daily No Start Date 01/12/2018 Inactive Zithromax Z-Poncho 250 mg tablet RxNorm: 073132 1 Tablet(s) PO UD No Start Date 01/09/2015 Inactive zpack Medication Administered Medication Codes Instruc tions Start Date Status Kenalog 40 mg/mL suspension for injection RxNorm: 7330816 Milliliter 05/14/2018 Ac tive Kenalog 40 mg/mL suspension for injection RxNorm: 5429151 1Milliliter 03/11/2018 N o longer Active Kenalog 40 mg/mL suspension for injection RxNorm: 3820800 1.5Milliliter 12/03/2017 No longer Active Kenalog 40 mg/mL suspension for injection RxNorm: 0436883 1Milliliter 03/17/2017 N o longer Active Kenalog 40 mg/mL suspension for injection RxNorm: 2793999 Milliliter 11/18/2016 No longer Active Kenalog 40 mg/mL suspension for injection RxNorm: 4227251 1Milliliter 03/24/2016 N o longer Active Kenalog 40 mg/mL suspension for injection RxNorm: 1174898 Milliliter 08/02/2015 No longer Active Immunizations Vaccine [...] Item Item Code Result Date Comp Metabolic Xsv654 NA 136 mEq/L 12/22/2017 Comp Metabolic Uvs013 K 4.2 mEq/L 12/22/2017 Comp Metabolic Uyd820 CL 105 mEq/L 12/22/2017 Comp Metabolic Zoz087 CO2 30.0 mEq/L 12/22/2017 Comp Metabolic Buz004 AN ION GAP 5 12/22/2017 Comp Metabolic Qzj438 GL UCOSE 85 mg/dL 12/22/2017 Comp Metabolic Mde832 Cr eat 1.2 mg/dL 12/22/2017 Comp Metabolic Ghc002 eG FR 62 ml/min/1.73m2 12/22 Comp Metabolic Okl857 BUN 17 mg/dL 12/22/2017 Comp Metabolic Nfl449 B/ C Ratio 13.9 Ratio 12/22/2017 Comp Metabolic Fhi027 CA LCIUM 9.3 mg/dL 12/22/2017 Comp Metabolic Dbf325 AL K PHOS 78 U/L 12/22/2017 Comp Metabolic Tfg912 T(SGOT) 24 U/L 12/22/2017 Comp Metabolic Oom361 AL T(SGPT) 28 U/L 12/22/2017 Comp Metabolic Ilr000 BI LI T 0.5 mg/dL 12/22/2017 Comp Metabolic Nvn167 AL BUMIN 4.0 g/dL 12/22/2017 Comp Metabolic Nns415 TP RO 6.6 g/dL 12/22/2017 Comp Metabolic Znw942 GL OB 2.6 g/dL 12/22/2017 Comp Metabolic Hie324 A/ G Ratio 1.6 Ratio 12/22/2017 Comp Metabolic Ama443 Os mo 273 mOsmo 12/22/2017 Cbc With [...] 31.9 pg 12/22/2017 Cbc With Differential Ord2 [place]% 6.3 % 12/22/2017 Cbc With Differential Ord2 [...] 1.92 K/ul 12/22/2017 Cbc With Differential Ord2 [place] ABS# 0.6 K/ul 12/22/2017 Cbc With Differential Ord2 Eos ABS# 0.3 K/ul 12/22/2017 Cbc With Differential Ord2 Baso ABS# 0.0 K/ul 12/22/2017 Comp Metabolic Jev748 NA 135 mEq/L 06/22/2017 Comp Metabolic Psv266 K 4.2 mEq/L 06/22/2017 Comp Metabolic Olm180 CL 101 mEq/L 06/22/2017 Comp Metabolic Cav597 CO2 27.0 mEq/L 06/22/2017 Comp Metabolic Xxo680 AN ION GAP 11 06/22/2017 Comp Metabolic Lbz886 GL UCOSE 89 mg/dL 06/22/2017 Comp Metabolic Sdj378 Cr eat 1.5 mg/dL 06/22/2017 Comp Metabolic Lyr706 eG FR 51 ml/min/1.73m2 06/22 Comp Metabolic Yhh518 BUN 16 mg/dL 06/22/2017 Comp Metabolic Ykh612 B/ C Ratio 11.0 Ratio 06/22/2017 Comp Metabolic Sfy825 CA LCIUM 8.9 mg/dL 06/22/2017 Comp Metabolic Rvm885 AL K PHOS 79 U/L 06/22/2017 Comp Metabolic Qsm648 T(SGOT) 26 U/L 06/22/2017 Comp Metabolic Ixp282 AL T(SGPT) 26 U/L 06/22/2017 Comp Metabolic Xwz053 BI LI T 0.4 mg/dL 06/22/2017 Comp Metabolic Swy090 AL BUMIN 4.1 g/dL 06/22/2017 Comp Metabolic Lwo943 TP RO 6.9 g/dL 06/22/2017 Comp Metabolic Kha736 GL OB 2.8 g/dL 06/22/2017 Comp Metabolic Mfq113 A/ G Ratio 1.5 Ratio 06/22/2017 Comp Metabolic Qwq445 Os mo 271 mOsmo 06/22/2017 Cbc With [...] 32.6 pg 06/22/2017 Cbc With Differential Ord2 [place]% 7.9 % 06/22/2017 Cbc With Differential Ord2 [...] 2.14 K/ul 06/22/2017 Cbc With Differential Ord2 [place] ABS# 0.8 K/ul 06/22/2017 Cbc With Differential [...] 33.2 pg 12/25/2015 Cbc With Differential Ord2 [place]% 7.6 % 12/25/2015 Cbc With Differential Ord2 [...] 1.86 K/ul 12/25/2015 Cbc With Differential Ord2 [place] ABS# 0.6 K/ul 12/25/2015 Cbc With Differential Ord2 Eos ABS# 0.2 K/ul 12/25/2015 Cbc With Differential Ord2 Baso ABS# 0.1 K/ul 12/25/2015 Comp Metabolic Xhr446 NA 136 mEq/L 12/25/2015 Comp Metabolic Dpr344 K 4.2 mEq/L 12/25/2015 Comp Metabolic Qsh443 CL 104 mEq/L 12/25/2015 Comp Metabolic Llw659 CO2 26.0 mEq/L 12/25/2015 Comp Metabolic Srx679 AN ION GAP 10 12/25/2015 Comp Metabolic Ozx558 GL UCOSE 104 mg/dL 12/25/2015 Comp Metabolic Ocw384 Cr eat 1.3 mg/dL 12/25/2015 Comp Metabolic Zwb912 eG FR 59 ml/min/1.73m2 12/24 Comp Metabolic Pno672 BUN 23 mg/dL 12/25/2015 Comp Metabolic Wid979 B/ C Ratio 18.0 Ratio 12/25/2015 Comp Metabolic Mhi410 CA LCIUM 9.1 mg/dL 12/25/2015 Comp Metabolic Ooi186 AL K PHOS 76 U/L 12/25/2015 Comp Metabolic Whv333 T(SGOT) 30 U/L 12/25/2015 Comp Metabolic Ukr481 AL T(SGPT) 28 U/L 12/25/2015 Comp Metabolic Axm001 BI LI T 0.3 mg/dL 12/25/2015 Comp Metabolic Bnk536 AL BUMIN 4.0 g/dL 12/25/2015 Comp Metabolic Ilf344 TP RO 6.6 g/dL 12/25/2015 Comp Metabolic Vkx462 GL OB 2.6 g/dL 12/25/2015 Comp Metabolic Edn201 A/ G Ratio 1.5 Ratio 12/25/2015 Comp Metabolic Xry195 Os mo 276 mOsmo 12/25/2015 Cbc With [...] 32.4 pg 06/25/2015 Cbc With Differential Ord2 [place]% 7.1 % 06/25/2015 Cbc With Differential Ord2 [...] 2.18 K/ul 06/25/2015 Cbc With Differential Ord2 [place] ABS# 0.7 K/ul 06/25/2015 Cbc With Differential Ord2 Eos ABS# 0.2 K/ul 06/25/2015 Cbc With Differential Ord2 Baso ABS# 0.0 K/ul 06/25/2015 Cbc With Differential Ord2 New Analyzer Notice Please note new ref ranges s tarting 03-28-2015 due to implemntation of new five part differential hematolgy analyzer. 06/25/2015 %Hba1C Sqw419 % HbA1c 93251-2 6.1 % 06/25/2015 %Hba1C Xbb302 Gluc Ave 128 mg/dL 06/25/2015 Comp Metabolic Mya918 NA 135 mEq/L 06/25/2015 Comp Metabolic Hoz865 K 4.3 mEq/L 06/25/2015 Comp Metabolic Hbc352 CL 102 mEq/L 06/25/2015 Comp Metabolic Svp018 CO2 26.0 mEq/L 06/25/2015 Comp Metabolic Dnz610 AN ION GAP 11 06/25/2015 Comp Metabolic Hzs914 GL UCOSE 81 mg/dL 06/25/2015 Comp Metabolic Wqs496 Cr eat 1.5 mg/dL 06/25/2015 Comp Metabolic Nac676 eG FR 49 ml/min/1.73m2 06/24 Comp Metabolic Pdl922 BUN 20 mg/dL 06/25/2015 Comp Metabolic Rxs407 B/ C Ratio 13.2 Ratio 06/25/2015 Comp Metabolic Snt792 CA LCIUM 9.5 mg/dL 06/25/2015 Comp Metabolic Ehc054 AL K PHOS 65 U/L 06/25/2015 Comp Metabolic Spy370 T(SGOT) 25 U/L 06/25/2015 Comp Metabolic Nsw353 AL T(SGPT) 29 U/L 06/25/2015 Comp Metabolic Rxo789 BI LI T 0.4 mg/dL 06/25/2015 Comp Metabolic Cyc822 AL BUMIN 4.4 g/dL 06/25/2015 Comp Metabolic Sjj171 TP RO 7.3 g/dL 06/25/2015 Comp Metabolic Cir725 GL OB 3.0 g/dL 06/25/2015 Comp Metabolic Xoy586 A/ G Ratio 1.5 Ratio 06/25/2015 Comp Metabolic Hnt286 Os mo 272 mOsmo 06/25/2015 Tsh Ord6 hTSH II 3.03 uIU/mL 06/25/2015 Lipid Ord30 CHOL 150 mg/dL 06/22/2015 Lipid Ord30 HDL 34.0 mg/dl 06/22/2015 Lipid Ord30 TRIG 149 mg/dL 06/22/2015 Lipid Ord30 LDL 86 mg/dL 06/22/2015 Lipid Ord30 C/HDL 4.4 Ratio 06/22/2015 Hepatic Avc776 ALBUMIN 4.3 g/dL 06/22/2015 Hepatic Cgp745 TPRO 7.0 g/dL 06/22/2015 Hepatic Ikt962 GLOB 2.8 g/dL 06/22/2015 Hepatic Zvr253 A/G Ratio 1.5 Ratio 06/22/2015 Hepatic Brk753 ALK PHOS 65 U/L 06/22/2015 Hepatic Igv667 ALT(SGPT) 33 U/L 06/22/2015 Hepatic Pqc639 AST(SGOT) 28 U/L 06/22/2015 Hepatic Cge730 BILI T 0.5 mg/dL 06/22/2015 Hepatic Tme010 BILI D 0.1 mg/dL 06/22/2015 Hepatic Ldy826 BILI I 0.4 mg/dL 06/22/2015 Review of [...] developed 01/13/2018 None Full Exam - General 1995 Constitutional general appearance Overall: in no acute [...] clear 11/18/2016 None Full Exam - General 1995 Ears/Nose/Throat otoscopic exam External auditory canal: partial [...] Procedure Codes Date THER/PROPH/DIAG INJ SC/IM CPT-4: 65197 05/14/2018 TRIAMCINOLONE ACET I [place] NOS CPT-4: J3301 05/14/2018 TRIAMCINOLONE ACET I [place] NOS CPT-4: J3301 03/11/2018 THER/PROPH/DIAG INJ SC/IM CPT-4: 84848 03/11/2018 PPPS, SUBSEQ VISIT CPT- 4: G0439 01/13/2018 TRIAMCINOLONE ACET I [place] NOS CPT-4: J3301 12/03/2017 THER/PROPH/DIAG INJ SC/IM CPT-4: 19110 12/03/2017 TRIAMCINOLONE ACET I [place] NOS CPT-4: J3301 06/24/2017 TRIAMCINOLONE ACET I [place] NOS CPT-4: J3301 03/17/2017 TRIAMCINOLONE ACET I [place] NOS CPT-4: J3301 11/18/2016 TRIAMCINOLONE ACET I [place] NOS CPT-4: J3301 03/24/2016 THER/PROPH/DIAG INJ SC/IM CPT-4: 29937 03/24/2016 TRIAMCINOLONE ACET I [place] NOS CPT-4: J3301 08/02/2015 OCCULT BLOOD FECES CPT- 4: 17838 08/03/2014 INITIAL PREVENTIVE EXAM CPT-4: G0402 07/31/2014 Vital Signs Date Vital 05/14/2018 Blood Pressure 1: 144/84 Code: 8480-6 Heart Rate 1: 70 bpm Height: SpO2: 95% Weight: 03/11/2018 Blood Pressure 1: 134/76 Code: 8480-6 BMI: 35.7 Code: 30628-1 Heart Rate 1: 60 bpm Height: 5'10" SpO2: 96% Weight: 249 lbs 02/10/2018 Blood Pressure 1: 140/72 Code: 8480-6 BMI: 33.7 Code: 77905-4 Heart Rate 1: 48 bpm Height: 5'10" SpO2: 95% Temperature: 36.6 (C ) / 97.8 (F) Weight: 235 lbs 01/13/2018 Blood Pressure 1: 118/66 Code: 8480-6 BMI: 33.3 Code: 44813-5 Heart Rate 1: 57 bpm Height: 5'10" SpO2: 98% Waist Measure (cm): 97 cm Weight: 232 lbs 12/23/2017 Blood Pressure 1: 120/62 Code: 8480-6 BMI: 33.7 Code: 99036-2 Heart Rate 1: 58 bpm Height: 5'10" SpO2: 96% Weight: 235 lbs 06/24/2017 Blood Pressure 1: 136/74 Code: 8480-6 BMI: 38.7 Code: 60679-9 Heart Rate 1: 75 bpm Height: 5'10" SpO2: 98% Weight: 270 lbs 03/17/2017 Blood Pressure 1: 138/78 Code: 8480-6 Heart Rate 1: 65 bpm SpO2: 97% Temperature: 36.6 (C ) / 97.8 (F) 12/24/2016 Blood Pressure 1: 134/78 Code: 8480-6 BMI: 37.2 Code: 20484-0 Heart Rate 1: 56 bpm Height: 5'10" SpO2: 98% Weight: 259 lbs 11/18/2016 Blood Pressure 1: 130/72 Code: 8480-6 BMI: 37.3 Code: 98907-0 Heart Rate 1: 70 bpm Height: 5'10" SpO2: 95% Weight: 260 lbs 06/24/2016 Blood Pressure 1: 134/80 Code: 8480-6 BMI: 38.3 Code: 58120-8 Heart Rate 1: 66 bpm Height: 5'10" SpO2: 98% Weight: 267 lbs 05/20/2016 Blood Pressure 1: 138/82 Code: 8480-6 BMI: 37.4 Code: 22819-7 Heart Rate 1: 65 bpm Height: 5'10" SpO2: 100% Weight: 261 lbs 05/09/2016 Blood Pressure 1: 154/78 Code: 8480-6 Heart Rate 1: 82 bpm Height: SpO2: 89% Temperature: 36.2 (C ) / 97.2 (F) Weight: 04/28/2016 Blood Pressure 1: 112/62 Code: 8480-6 BMI: 37.9 Code: 52378-3 Heart Rate 1: 73 bpm Height: 5'10" SpO2: 94% Temperature: 37.2 (C ) / 98.9 (F) Weight: 264 lbs 04/04/2016 Blood Pressure 1: 150/86 Code: 8480-6 Blood Pressure 1: 148/86 Code: 8480-6 Heart Rate 1: 71 bpm SpO2: 93% SpO2: 95% Temperature: 37.2 (C ) / 99.0 (F) 03/28/2016 Blood Pressure 1: 156/74 Code: 8480-6 BMI: 38.0 Code: 28543-2 Heart Rate 1: 84 bpm Height: 5'10" SpO2: 95% Weight: 265 lbs 02/13/2016 Blood Pressure 1: 118/62 Code: 8480-6 BMI: 39.2 Code: 68318-0 Heart Rate 1: 65 bpm Height: 5'10" SpO2: 96% Weight: 273 lbs 08/02/2015 Blood Pressure 1: 150/82 Code: 8480-6 BMI: 38.3 Code: 25851-2 Heart Rate 1: 75 bpm Height: 5'10" SpO2: 93% Weight: 267 lbs 06/22/2015 Blood Pressure 1: 138/80 Code: 8480-6 BMI: 38.7 Code: 80917-3 Heart Rate 1: 76 bpm Height: 5'10" SpO2: 96% Weight: 270 lbs 07/31/2014 Blood Pressure 1: 138/70 Code: 8480-6 BMI: 37.7 Code: 54116-9 Heart Rate 1: 70 bpm Height: 5'10" Respiratory Rate: 20 bpm Weight: 263 lbs 03/20/2014 Blood Pressure 1: 142/80 Code: 8480-6 BMI: 37.7 Code: 76775-3 Heart Rate 1: 64 bpm Height: 5'10" Weight: 263 lbs 03/01/2014 Blood Pressure 1: 150/90 Code: 8480-6 Blood Pressure 2: 140/80 Code: 8480-6 BMI: 37.3 Code: 01012-1 Heart Rate 1: 56 bpm Height: 5'10" [...] ago 04/28/2016 None cough Location in the [facility] 04/04/2016 None cough Location in the roat [...] Encounters Encounter Performer Loca tion Codes Date 49003 EST. PATIENT, LEVEL III Diagnosis: Acute laryngopharyngitis[ICD10: J06.0] Diagnosis: Other allergic rhinitis[ICD10: J30.89] Diagnosis: Cough[ICD10: R05] Lulu Camacho MD, [facility] CPT-4: 55445 05/14/2018 [id number] EST. PATIENT, LEVEL IV Diagnosis: Other acute sinusitis[ICD10: J01.80] Diagnosis: Other allergic rhinitis[ICD10: J30.89] Diagnosis: Cough[ICD10: R05] Lulu Camacho MD, [facility] CPT-4: 14125 03/11/2018 11711 EST. PATIENT, LEVEL IV Diagnosis: Other acute sinusitis[ICD10: J01.80] Diagnosis: Other allergic rhinitis[ICD10: J30.89] Lulu Camacho MD, [facility] CPT-4: 08631 02/10/2018 ([id number]) 29037 EST. P ATIENT, LEVEL IV Diagnosis: Essential (primary) hypertension[ICD10: I10] Diagnosis: Mixed hyperlipidemia[ICD10: E78.2] Diagnosis: Nonrheumatic aortic (valve) stenosis[ICD10: I35.0] Trina Camacho MD, [facility] CPT-4: 58170 12/23/2017 ([id number]) PER PM REEVA L EST PAT 65+ YR Diagnosis: Encounter for general adult medical examination with abnormal findings[ICD10: Z00.01] Trina Camacho MD, [facility] CPT-4: 90000 06/24/2017 ([id number]) Patient adm itted to the hospital from clinic (NO CHARGE) Diagnosis: [ICD9: ] Diagnosis: Essential (primary) hypertension[ICD10: I10] Diagnosis: Other allergic rhinitis[ICD10: J30.89] Diagnosis: Cough[ICD10: R05] Diagnosis: Mixed hyperlipidemia[ICD10: E78.2] Trina Camacho MD, [facility] CPT- 4: 61790M 06/24/2017 93045 EST. PATIENT, LEVEL IV Diagnosis: Other acute sinusitis[ICD10: J01.80] Diagnosis: Other allergic rhinitis[ICD10: J30.89] Lulu Camacho MD, [facility] CPT-4: 58368 03/17/2017 ([id number]) 78265 EST. P ATIENT, LEVEL IV Diagnosis: Essential (primary) hypertension[ICD10: I10] Diagnosis: Mixed hyperlipidemia[ICD10: E78.2] Trina Camacho MD, [facility] CPT- 4: 98021 12/24/2016 [id number] EST. PATIENT, LEVEL IV Diagnosis: Acute bronchitis due to other specified organisms[ICD10: J20.8] Lulu Camacho MD, [facility] CPT-4: 74148 11/18/2016 ([id number]) 69466 EST. P ATIENT, LEVEL III Diagnosis: Essential (primary) hypertension[ICD10: I10] Trina Camacho MD [facility] CPT-4: 82056 06/24/2016 ([id number]) 74194 EST. P ATIENT, LEVEL III Diagnosis: Essential (primary) hypertension[ICD10: I10] Diagnosis: Cough[ICD10: R05] Diagnosis: Candidal stomatitis[ICD10: B37.0] Trina Camacho MD, [facility] CPT-4: 45481 05/20/2016 ([id number]) Patient adm itted to the hospital from clinic (NO CHARGE) Diagnosis: Pneumonia, unspecified organism[ICD10: J18.9] Diagnosis: Cough[ICD10: R05] Trina Camacho MD, [facility] CPT-4: 02157V 05/09/2016 41781 EST. PATIENT, LEVEL III Diagnosis: Acute laryngopharyngitis[ICD10: J06.0] Diagnosis: Cough[ICD10: R05] Lulu Camacho MD, [facility] CPT-4: 52630 04/28/2016 ([id number]) 22398 EST. P ATIENT, LEVEL III Diagnosis: Cough[ICD10: R05] Diagnosis: Essential (primary) hypertension[ICD10: I10] Susu Camacho MD, [facility] CPT-4: 38914 04/04/2016 ([id number]) 68414 EST. P ATIENT, LEVEL III Diagnosis: Cough[ICD10: R05] Diagnosis: Pneumonia, unspecified organism[ICD10: J18.9] Susu Camacho MD, [facility] CPT-4: 45657 03/28/2016 70118 EST. PATIENT, LEVEL IV Diagnosis: Other allergic rhinitis[ICD10: J30.89] Diagnosis: Other acute sinusitis[ICD10: J01.80] Lulu Camacho MD, [facility] CPT- 4: 16239 02/13/2016 99031 EST. PATIENT, LEVEL IV Diagnosis: Acute bronchitis due to other specified organisms[ICD10: J20.8] Diagnosis: Other acute sinusitis[ICD10: J01.80] Diagnosis: Other allergic rhinitis[ICD10: J30.89] Lulu Camacho MD, [facility] CPT-4: 90834 08/02/2015 ([id number]) 08510 EST. P ATIENT, LEVEL IV Diagnosis: Essential (primary) hypertension[ICD10: I10] Diagnosis: Mixed hyperlipidemia[ICD10: E78.2] Diagnosis: Impaired fasting glucose[ICD10: R73.01] Susu Camacho MD, [facility] CPT-4: 09732 06/22/2015 ([id number]) 09004 EST. P ATIENT, LEVEL IV Diagnosis: ESSENTIAL HYPERTENSION[ICD9: 401.9] Diagnosis: Aortic stenosis[ICD9: 424.1] Diagnosis: Hyperlipidemia[ICD9: 272.4] Trina Camacho MD, [facility] CPT-4: 43999 03/20/2014 ([id number]) [facility] - LEVEL 4 Diagnosis: ESSENTIAL HYPERTENSION[ICD9: 401.9] Diagnosis: DIABETES TYPE II[ICD9: 250.00] Diagnosis: Heart murmur[ICD9: 785.2] Diagnosis: Snoring[ICD9: 786.09] Diagnosis: Sleep-disordered breathing[ICD9: 780.59] Trina Camacho MD, [facility] CPT-4: 81128 03/01/2014 Plan of Care Planned Activity Notes [...] in the nasal steroid allergy spray. 05/14/2018 Patient Education: Patient Medication Summary Completed [...] allergy spray. 03/11/2018 Appointment: Lulu Mann WPtel: [address] [place], [place] [id number] (15 min) Moderate 03/11/2018 Patient Education: Patient [...] allergy spray. 02/10/2018 [facility]ment[facility] [phone] [id number] ([facility] Moderate 02/10/2018 Patient Education: Patient [...] 01/13/2018 Visit Plan: Hypertension - well jinny sharifed - continue with current medications, continue with [...] [facility] [phone] [id number] [place] (15 min) Moderate 12/23/2017 Patient Education: [...] inhales bid. 06/24/2017 Appointment: Trina Camacho WPtel: Formerly named [facility] [place] (15 min) Moderate 06/24/2017 Patient Education: Patient [...] allergy spray. 03/17/2017 Appointment: Lulu Mann WPtel: Formerly named [facility] (15 min) Moderate 03/17/2017 Patient Education: Patient [...] Camacho WPtel: [phone] [facility] [place] (15 min) Moderate 12/24/2016 Patient Education: Patient [...] worsen. 11/18/2016 Appointment: Lulu Mann WPtel: [phone] [facility] (30 min) Complex 11/18/2016 Patient Education: [...] home. 06/24/2016 Appointment: Trina Camacho WPtel: [phone] [facility] [place] (15 min) Moderate 06/24/2016 Patient Education: Patient [...] and swallow 05/20/2016 Appointment: Trina Camacho [facility]Ptel[phone] (15 min) Moderate 05/20/2016 Patient Education: Patient Medication Summary Completed 05/20/2016 Patient Education: Obesity Completed 05/20/2016 Patient Education: Hypertension Completed 05/20/2016 Visit Plan: PNEUMONIA - PT IS CLINI WESLY SYMPTOMATIC FOR PNEUMONIA - A CHEST XRAY, SPUTUM C AND S, BLOOD CULTURES, AND LABS HAVE BEEN ORDERED IN ORDER TO FURTHER WORK-UP THE ACUTE ILLNESS. 05/09/2016 Appointment: Susu Mills WPtel: Formerly named [facility]5 [phone] (15 min) Moderate 05/09/2016 Patient Education: Patient Medication Summary Completed 05/09/2016 Visit Plan: URI - Pt advised to inc rease fluids, vitamin C. Discussed natural and expected course of this diagnosis and need to alert me if symptoms do not follow expected course, or if any worse. RX sent to patient's pharmacy. 04/28/2016 Appointment: Lulu Mann WPtel: [facility] (15 min) Moderate 04/28/2016 Patient Education: [...] verbalized understanding. 04/04/2016 Appointment: Susu Mills WPtel: [phone] (10 min) Simple 04/04/2016 Patient Education: Patient Medication Summary Completed 04/04/2016 Patient Education: Hypertension Completed 04/04/2016 Visit Plan: Pneumonia-cough- improv ing-finish abx and call if symptoms do not completely resolved-patient verbalized understanding of plan. 03/28/2016 Appointment: Susu Mills WPtel: [address] [place] [address] (30 min) Complex 03/28/2016 Patient Education: Patient Medication Summary Completed 03/28/2016 Patient Education: Obesity Completed 03/28/2016 Visit Plan: Cough-kenalog injection today-start abx as directed-f/u , sooner if needed 03/24/2016 Appointment: Susu Mills WPtel: [phone] [phone] (10 min) Simple 03/24/2016 Patient Education: [...] show improvement. 02/13/2016 Appointment: Susu Mills WPtel: [address] [place], [place] [phone] (15 min) Moderate 02/13/2016 Patient Education: Patient [...] allergy spray. 08/02/2015 Appointment: Lulu Mann WPtel: Formerly named [facility] (15 min) Moderate 08/02/2015 Patient Education: [...] Patient Medication Summary Completed 07/31/2014 Patient Education: [facility] - Saving [employer] - Lisinopril - 18+ - Dynamic Portal ID Completed 07/31/2014 Visit Plan: YHP-jvrdxmuv-ltlyd slig htly elevated-patient tolerated lisinopril 5mg BID well, did not tolerate 10mg daily in the past. Recommend he monitor blood pressure and pulse at home and bring in readings for review. Aortic Stenosis-recommend stress test-refer to Dr Avilez for evaluation Hyperlipidemia-continue statin medication-increase exercise and weight loss-low fat diet. Repeat labs in 3-6 months-Patient verbalized understanding of plan. Daytime nerdyuegfxa-xzizyax-xwygull-refer for sleep study 03/20/2014 Visit Plan: RRU-zbxhoyhi-rlzoe slig htly elevated-patient tolerated lisinopril 5mg BID [...] 03/20/2014 Care Plan: Referral Order SNOMED-CT : [id number] Ordered 03/20/2014 Visit Plan: Hypertension - uncontro [...] labs from his previous physician. 03/01/2014 Appointment: [phone] [place] New Patient 03/01/2014 Patient Education: Patient [...] worse. RX sent to patient's pharmacy. . Cough-kenalog inje ction today-start abx as directed-f/u , sooner if needed . Sinusitis - Pt has acute infection [...] copy Elevated fasting glucose-check Hgb A1C . Allergies - chroni c - recommended [...] in the nasal steroid allergy spray. . SQL-yccbyfkr-xfqtu slightly elevated-patient tolerated lisinopril 5mg BID well, did not tolerate 10mg daily in the past. Recommend he monitor blood pressure and pulse at home and bring in readings for review. Aortic Stenosis-recommend stress test-refer to Dr Avilez for evaluation Hyperlipidemia-continue statin medication-increase exercise and weight loss-low fat diet. Repeat labs in 3-6 months-Patient verbalized understanding of plan. Daytime pqjeefsrwoj-zgcoatp-oamkytf-refer for sleep study . LKN-fqlezreu-xsret slightly elevated-patient tolerated lisinopril 5mg BID well, did not tolerate 10mg daily in the past. Recommend he monitor blood pressure and pulse at home and bring in readings for review. Aortic Stenosis-recommend stress test-refer to Dr Avilez for evaluation Hyperlipidemia-continue statin medication-increase exercise and weight loss-low fat diet. Repeat labs in 3-6 months-Patient verbalized understanding of plan. . Bronchitis - acute case of bronchitis [...] to maintain independece in the home. . HTN-no well contro lled-monitor over the weekend and call with readings-call for chest pain, shortness of breath, etc. Patient verbalized understanding of plan. Cough-recent pneumonia-history of tobacco use-symptoms improved-RX for a short course of prednisone sent to patient's pharmacy and instructed on use. Call Thursday with update. Patient verbalized understanding. . Hypertension - wel l controlled - [...] in the nasal steroid allergy spray. . Pneumonia-cough- i mproving-finish abx and call if symptoms do not completely resolved-patient verbalized understanding of plan. . Occult blood negat cassy x3. Let me know if you a re [...]
--- OUTSIDE RECORDS SUMMARY | 2019-03-16 12:41 | XMS REPORT | CCD ---
Author Author Farshad Camacho Organization Trina Camacho MD, [facility] Address [address] [place] [address] Phone Care Team Providers Care Recreation Manager Name Role Phone PP Unavailable CCM Unavailable Summary Purpose Interface Exchange Insurance Providers Payer name Policy type / Coverage type Covered alliance party ID Effective Begin Date Effective End Date WPS Medicare Part B Medicare Part B [id number] Unknown Cigna Medicare Part B 80 [id number] Unknown Family history Brother Diagnosis Age At Onset lung cancer Unknown Alcoholism Unknown Mother Diagnosis Age At Onset Cancer Unknown Pancratic cancer Unknown Arthritis Unknown Father Diagnosis Age At Onset Alcoholism Unknown Social History Social History Element Codes Description Effective Dates Marital status Unknown M alberto Rice 03/01/2014 Number of children Unknown 3 and 3 step 03/01/[address]: 9413617 Former smoker quit 199603/01/2014 Allergies, Adverse Reactions, [...] Codes Condition Status Onset Date Resolved Date Cough ICD-9: 786.2 ICD-10: R05 Active 03/11/2018 Unknown Other acute sinusitis ICD-9: 461.8 ICD-10: J01.80 Active 02/10/2018 Unknown Other allergic rhinitis ICD-9: 477.8 ICD-10: J30.89 Active 02/10/2018 Unknown Encounter for genera l [...] ICD-9: 466.0 ICD-10: J20.8 Resolved 08/01/2015 Unknown Acute laryngopharyng itis ICD-9: 465.0 ICD-10: J06.0 Resolved 04/28/2016 Unknown Candidal stomatitis ICD- 9: 112.0 ICD-10: [...] Condition Codes Effectiv e Dates Condition Status Cough ICD-9: 786.2 ICD-10: R05 03/11/2018 Active Other acute sinusitis ICD-9: 461.8 ICD-10: J01.80 02/10/2018 Active Other allergic rhinitis ICD-9: 477.8 ICD-10: J30.89 02/10/2018 Active Encounter for genera l adult [...] organisms ICD-9: 466.0 ICD-10: J20.8 08/01/2015 Resolved Acute laryngopharyng itis ICD-9: 465.0 ICD-10: J06.0 04/28/2016 Resolved Candidal stomatitis ICD- 9: 112.0 ICD-10: [...] Date Stop Date Sta tus Fill Instructions prednisone 10 mg tablet RxNorm: 093843 Tablet(s) PO UD 03/11/2018 No Stop Date Active 60,50,40,30,20,10 Kenalog 40 mg/mL russell pension for injection RxNorm: 3249641 1 Milliliter(s) Inj 03/11/2018 03/11/2018 In active Keflex 500 mg capsule RxNorm: 570600 1 Capsule(s) PO TID 03/11/2018 03/20/2018 Active Symbicort 160 mcg-4. 5 mcg/actuation HFA aerosol inhaler RxNorm: 4875795 2 Puff(s) INH BID 02/10/2018 No Stop Date Active Keflex 500 mg capsule RxNorm: 883170 1 Capsule(s) PO TID 02/10/2018 02/19/2018 Inactive prednisone 10 mg tablet RxNorm: 502983 Tablet(s) PO UD start on 11/1902/10/2018 03/09/2018 Inactive 60,50,40,30,20,10 Advair Diskus 250 mc g-50 mcg/dose powder for inhalation RxNorm: 0583773 1 Puff(s) INH BID 12/29/2017 No Stop Date Active Zithromax Z-Poncho 250 mg tablet RxNorm: 143604 1 Tablet(s) PO UD 12/29/2017 01/02/2018 Inactive zpack Tessalon Perles 100 mg capsule RxNorm: 995233 1-2 Capsule(s) PO TID as needed 12/29/2017 01/02/2018 In active allopurinol 300 mg t ablet RxNorm: Tablet(s) TAKE ONE TA BLET BY MOUTH ONCE DAILY 12/10/2017 No Stop Date Active Kenalog 40 mg/mL russell pension for injection RxNorm: 9789780 1.5 Milliliter(s) In j 12/03/2017 12/03/2017 In active allopurinol 300 mg t ablet RxNorm: 248996 TAKE ONE TABLET BY MO UTH ONCE DAILY 09/08/2017 12/09/2017 In active allopurinol 300 mg t ablet RxNorm: TAKE ONE TABLET BY MO UTH ONCE DAILY 06/15/2017 09/07/2017 In active Keflex 500 mg capsule RxNorm: 808289 1 Capsule(s) PO TID 05/04/2017 05/13/2017 Inactive Kenalog 40 mg/mL russell pension for injection RxNorm: 8774708 1 Milliliter(s) Inj 03/17/2017 03/17/2017 In active Keflex 500 mg capsule RxNorm: 403497 1 Capsule(s) PO TID 03/13/2017 03/12/2017 Inactive Keflex 500 mg capsule RxNorm: 074525 1 Capsule(s) PO TID 03/13/2017 03/22/2017 Inactive prednisone 10 mg tablet RxNorm: 452344 Tablet(s) PO UD start on 11/1911/18/2016 12/23/2016 Inactive 60,50,40,30,20,10 Advair Diskus 250 mc g-50 mcg/dose powder for inhalation RxNorm: 2367000 1 Puff(s) INH BID 11/18/2016 12/28/2017 Inactive doxycycline hyclate 100 mg capsule RxNorm: 8449140 1 Capsule(s) PO BID 11/18/2016 11/27/2016 In active Kenalog 40 mg/mL russell pension for injection RxNorm: 9745463 Milliliter(s) Inj 11/18/2016 11/18/2016 In active nystatin 100,000 uni t/mL oral suspension RxNorm: 454690 5 Milliliter(s) PO QI D 05/20/2016 05/29/2016 In active allopurinol 300 mg t ablet RxNorm: 567689 TAKE ONE TABLET BY [facility] ONCE DAILY 05/11/2016 05/05/2017 In active Tessalon Perles 100 mg capsule RxNorm: 197538 1-2 Capsule(s) PO TID as needed 04/29/2016 05/03/2016 In active Prilosec OTC 20 mg t ablet,delayed release RxNorm: 328706 Tablet(s) PO 04/28/2016 11/16/2016 In active doxycycline hyclate 100 mg capsule RxNorm: 1777096 1 Capsule(s) PO BID 04/28/2016 05/07/2016 In active Tamiflu 75 mg capsule RxNorm: 676517 1 Capsule(s) PO BID 04/07/2016 04/11/2016 Inactive Tamiflu 75 mg capsule RxNorm: 884851 1 Capsule(s) PO BID 04/07/2016 04/06/2016 Inactive prednisone 20 mg tablet RxNorm: 765651 1 Tablet(s) PO BID 04/04/2016 04/08/2016 Inactive Kenalog 40 mg/mL russell pension for injection RxNorm: 3214544 1 Milliliter(s) Inj 03/24/2016 03/24/2016 In active cefdinir 300 mg capsule RxNorm: 804475 1 Capsule(s) PO BID 03/24/2016 03/30/2016 Inactive Zithromax Z-Poncho 250 mg tablet RxNorm: 405402 1 Tablet(s) PO UD 03/24/2016 03/28/2016 Inactive zpack cefdinir 300 mg capsule RxNorm: 431110 1 Capsule(s) PO BID 03/24/2016 03/23/2016 Inactive Flonase Allergy Reli ef 50 mcg/actuation nasal spray,suspension RxNorm: 9667141 1 [place] NASAL BID 02/13/2016 No Stop Date Active doxycycline hyclate 100 mg capsule RxNorm: 2373788 1 Capsule(s) PO BID 02/13/2016 02/19/2016 In active lisinopril 5 mg tablet RxNorm: 184634 1 Tablet(s) PO BID TAKE ONE TABLET BY MO UT TWICE DAILY 11/20/2015 05/12/2016 Inactive hold until patient calls fo r refill doxycycline hyclate 100 mg capsule RxNorm: 7789215 1 Capsule(s) PO BID 08/02/2015 08/08/2015 In active Kenalog 40 mg/mL russell pension for injection RxNorm: 3575299 Milliliter(s) Inj 08/02/2015 08/02/2015 In active lisinopril 5 mg tablet RxNorm: 690207 TAKE ONE TABLET BY MOUTH TWICE DAILY 06/11/2015 11/19/2015 In active allopurinol 300 mg t ablet RxNorm: 733157 1 Tablet(s) PO daily 05/08/2015 05/01/2016 Inactive lisinopril 5 mg tablet RxNorm: 479900 1 Tablet(s) PO BID 01/30/2015 05/29/2015 Inactive [AttnRPh: Saving apply/adjudicate RxGRP:SG20 RxBIN:[id number] RxPCN: ID#:[id number]] Zithromax Z-Poncho 250 mg tablet RxNorm: 342827 1 Tablet(s) PO UD 01/10/2015 03/23/2016 Inactive zpack allopurinol 300 mg t ablet RxNorm: 925468 1 Tablet(s) PO daily 10/31/2014 04/28/2015 Inactive lisinopril 5 mg tablet RxNorm: 865724 1 Tablet(s) PO BID 07/31/2014 11/27/2014 Inactive [AttnRPh: Saving apply/adjudicate RxGRP:SG20 RxBIN:[id number] RxPCN:HT ID#:[id number]] allopurinol 300 mg t ablet RxNorm: 048711 1 Tablet(s) PO daily 05/17/2014 10/30/2014 Inactive lisinopril 5 mg tablet RxNorm: 604764 1 Tablet(s) PO BID 03/01/2014 06/28/2014 Inactive [SAVINGS FOR UNINSURED PATIENTS -- BIN:[id number], PCN: [id number], Group: [id number], ID# [id number], Process claim through [employer], for questions: . THIS IS NOT INSURANCE.] Fish Oil 1,000 mg ca psule RxNorm: 3 Capsule(s) PO daily No Start Date Active B Complex 1 oral RxNorm: 07501 oral No Start Date Active Vitamin D3 1,000 uni t capsule RxNorm: 670443 2 Capsule(s) PO daily No Start Date Active Zyrtec 10 mg capsule RxNorm: 2911371 1 Capsule(s) PO daily No Start Date Active fenofibrate nanocrys tallized 48 mg tablet RxNorm: 458789 1 Tablet(s) PO daily No Start Date Active metoprolol tartrate 25 mg tablet RxNorm: 786940 1 Tablet(s) PO daily No Start Date Active multivitamin tablet RxNorm: 1 Tablet(s) PO daily No Start Date Active pravastatin 40 mg ta blet RxNorm: 930995 1 Tablet(s) PO daily No Start Date Active Tessalon Perles 100 mg capsule RxNorm: 661033 1-2 Capsule(s) PO TID as needed No Start Date 04/28/2016 Inactive allopurinol 300 mg t ablet RxNorm: 599243 1 Tablet(s) PO daily No Start Date 05/16/2014 Inactive metformin 500 mg tablet RxNorm: 022759 1 Tablet(s) PO BID No Start Date 02/14/2014 Inactive pioglitazone 15 mg t ablet RxNorm: 875889 1 Tablet(s) PO daily No Start Date 07/30/2014 Inactive lisinopril 5 mg tablet RxNorm: 800160 1 Tablet(s) PO daily No Start Date 02/28/2014 Inactive losartan 25 mg tablet RxNorm: 824269 1/2 Tablet(s) PO daily No Start Date 01/12/2018 Inactive Zithromax Z-Poncho 250 mg tablet RxNorm: 625919 1 Tablet(s) PO UD No Start Date 01/09/2015 Inactive zpack Medication Administered Medication Codes Instruc tions Start Date Status Kenalog 40 mg/mL suspension for injection RxNorm: 3629734 1Milliliter 03/11/2018 A ctive Kenalog 40 mg/mL suspension for injection RxNorm: 5271315 1.5Milliliter 12/03/2017 No longer Active Kenalog 40 mg/mL suspension for injection RxNorm: 7080966 1Milliliter 03/17/2017 N o longer Active Kenalog 40 mg/mL suspension for injection RxNorm: 7408630 Milliliter 11/18/2016 No longer Active Kenalog 40 mg/mL suspension for injection RxNorm: 7020320 1Milliliter 03/24/2016 N o longer Active Kenalog 40 mg/mL suspension for injection RxNorm: 2986870 Milliliter 08/02/2015 No longer Active Immunizations Vaccine Codes Date Status Influenza CVX: 141 12/18 completed Influenza CVX: 141 12/14 completed Pneumococcal CVX: 33 03/2012 completed Zoster CVX: 121 11/15/19 13 completed Assessments Condition Codes Effectiv e Dates Other acute sinusitis ICD-10: J01.80 ICD-9: 461.8 03/11/2018 Cough ICD-10: R05 ICD-9: 786.2 03/11/2018 Other allergic rhinitis ICD-10: J30. 89 ICD-9: 477.8 03/11/2018 Encounter for general adult medical exam [...] organism ICD- 10: J18.9 ICD-9: 486 05/09/2016 Acute laryngopharyngitis ICD-10: J06 .0 ICD-9: 465.0 04/28/2016 Impaired fasting glucose ICD-10: R73 .01 ICD-9: [...] Visit Reason For Visit Effective Dates Notes sinus congestion 03/11/2018 sinus congestion 02/10/2018 Annual [...] Item Item Code Result Date Comp Metabolic Ljm642 NA 136 mEq/L 12/22/2017 Comp Metabolic Zdi817 K 4.2 mEq/L 12/22/2017 Comp Metabolic Esq884 CL 105 mEq/L 12/22/2017 Comp Metabolic Ryl381 CO2 30.0 mEq/L 12/22/2017 Comp Metabolic Uga043 AN ION GAP 5 12/22/2017 Comp Metabolic Ddk372 GL UCOSE 85 mg/dL 12/22/2017 Comp Metabolic Tag436 Cr eat 1.2 mg/dL 12/22/2017 Comp Metabolic Nor251 eG FR 62 ml/min/1.73m2 12/22 Comp Metabolic Zfq815 BUN 17 mg/dL 12/22/2017 Comp Metabolic Esu409 B/ C Ratio 13.9 Ratio 12/22/2017 Comp Metabolic Cuj216 CA LCIUM 9.3 mg/dL 12/22/2017 Comp Metabolic Lrs537 AL K PHOS 78 U/L 12/22/2017 Comp Metabolic Aym189 T(SGOT) 24 U/L 12/22/2017 Comp Metabolic Vdb970 AL T(SGPT) 28 U/L 12/22/2017 Comp Metabolic Lnq236 BI LI T 0.5 mg/dL 12/22/2017 Comp Metabolic Ova289 AL BUMIN 4.0 g/dL 12/22/2017 Comp Metabolic Kgq874 TP RO 6.6 g/dL 12/22/2017 Comp Metabolic Vbp053 GL OB 2.6 g/dL 12/22/2017 Comp Metabolic Ynu225 A/ G Ratio 1.6 Ratio 12/22/2017 Comp Metabolic Ysj214 Os mo 273 mOsmo 12/22/2017 Cbc With [...] 21.6 % 12/22/2017 Cbc With Differential Ord2 [place]% 6.3 % 12/22/2017 Cbc With Differential Ord2 MCH 31.9 pg 12/22/2017 Cbc With Differential Ord2 MCHC 33.6 pg 12/22/2017 Cbc With Differential Ord2 Eos% 3.5 % 12/22/2017 Cbc With Differential Ord2 PLT 138 K/ul 12/22/2017 Cbc With Differential Ord2 Baso% 0.2 % 12/22/2017 Cbc With Differential Ord2 Neut ABS# 6.07 K/ul 12/22/2017 Cbc With Differential Ord2 RDW 14.7 % 12/22/2017 Cbc With Differential Ord2 Lymph ABS# 1.92 K/ul 12/22/2017 Cbc With Differential Ord2 [place] ABS# 0.6 K/ul 12/22/2017 Cbc With Differential Ord2 Eos ABS# 0.3 K/ul 12/22/2017 Cbc With Differential Ord2 Baso ABS# 0.0 K/ul 12/22/2017 Comp Metabolic Qrj113 NA 135 mEq/L 06/22/2017 Comp Metabolic Rqd951 K 4.2 mEq/L 06/22/2017 Comp Metabolic Ywh977 CL 101 mEq/L 06/22/2017 Comp Metabolic Kji222 CO2 27.0 mEq/L 06/22/2017 Comp Metabolic Geh263 AN ION GAP 11 06/22/2017 Comp Metabolic Dsd149 GL UCOSE 89 mg/dL 06/22/2017 Comp Metabolic Nve718 Cr eat 1.5 mg/dL 06/22/2017 Comp Metabolic Ehp238 eG FR 51 ml/min/1.73m2 06/22 Comp Metabolic Zfq801 BUN 16 mg/dL 06/22/2017 Comp Metabolic Kbs383 B/ C Ratio 11.0 Ratio 06/22/2017 Comp Metabolic Sco385 CA LCIUM 8.9 mg/dL 06/22/2017 Comp Metabolic Eae272 AL K PHOS 79 U/L 06/22/2017 Comp Metabolic Udy239 T(SGOT) 26 U/L 06/22/2017 Comp Metabolic Ykx182 AL T(SGPT) 26 U/L 06/22/2017 Comp Metabolic Xnz567 BI LI T 0.4 mg/dL 06/22/2017 Comp Metabolic Seg760 AL BUMIN 4.1 g/dL 06/22/2017 Comp Metabolic Uqm924 TP RO 6.9 g/dL 06/22/2017 Comp Metabolic Wau912 GL OB 2.8 g/dL 06/22/2017 Comp Metabolic Abf101 A/ G Ratio 1.5 Ratio 06/22/2017 Comp Metabolic Rkx179 Os mo 271 mOsmo 06/22/2017 Cbc With Differential Ord2 WBC 9.59 K/ul 06/22/2017 Cbc With Differential Ord2 RBC 4.39 M/ul 06/22/2017 Cbc With Differential Ord2 HGB 14.3 g/dl 06/22/2017 Cbc With Differential Ord2 Neut% 66.3 % 06/22/2017 Cbc With Differential Ord2 HCT 42.1 % 06/22/2017 Cbc With Differential Ord2 MCV 95.9 fl 06/22/2017 Cbc With Differential Ord2 Lymph% 22.3 % 06/22/2017 Cbc With Differential Ord2 MCH 32.6 pg 06/22/2017 Cbc With Differential Ord2 [place]% 7.9 % 06/22/2017 Cbc With Differential Ord2 MCHC 34.0 pg 06/22/2017 Cbc With Differential Ord2 Eos% 3.3 % 06/22/2017 Cbc With Differential Ord2 PLT 155 K/ul 06/22/2017 Cbc With Differential Ord2 Baso% 0.2 % 06/22/2017 Cbc With Differential Ord2 Neut ABS# 6.35 K/ul 06/22/2017 Cbc With Differential Ord2 RDW 13.8 % 06/22/2017 Cbc With Differential Ord2 Lymph ABS# 2.14 K/ul 06/22/2017 Cbc With Differential Ord2 [place] ABS# 0.8 K/ul 06/22/2017 Cbc With Differential Ord2 Eos ABS# 0.3 K/ul 06/22/2017 Cbc With Differential Ord2 Baso ABS# 0.0 K/ul 06/22/2017 Cbc With Differential Ord2 WBC 7.38 K/ul 12/25/2015 Cbc With Differential Ord2 RBC 4.01 M/ul 12/25/2015 Cbc With Differential Ord2 HGB 13.3 g/dl 12/25/2015 Cbc With Differential Ord2 Neut% 64.0 % 12/25/2015 Cbc With Differential Ord2 HCT 38.8 % 12/25/2015 Cbc With Differential Ord2 MCV 96.8 fl 12/25/2015 Cbc With Differential Ord2 Lymph% 25.2 % 12/25/2015 Cbc With Differential Ord2 [place]% 7.6 % 12/25/2015 Cbc With Differential Ord2 MCH 33.2 pg 12/25/2015 Cbc With Differential Ord2 MCHC 34.3 pg 12/25/2015 Cbc With Differential Ord2 Eos% 2.4 % 12/25/2015 Cbc With Differential Ord2 PLT 134 K/ul 12/25/2015 Cbc With Differential Ord2 Baso% 0.8 % 12/25/2015 Cbc With Differential Ord2 RDW 14.3 % 12/25/2015 Cbc With Differential Ord2 Neut ABS# 4.72 K/ul 12/25/2015 Cbc With Differential Ord2 Lymph ABS# 1.86 K/ul 12/25/2015 Cbc With Differential Ord2 [place] ABS# 0.6 K/ul 12/25/2015 Cbc With Differential Ord2 Eos ABS# 0.2 K/ul 12/25/2015 Cbc With Differential Ord2 Baso ABS# 0.1 K/ul 12/25/2015 Comp Metabolic Soo558 NA 136 mEq/L 12/25/2015 Comp Metabolic Wor964 K 4.2 mEq/L 12/25/2015 Comp Metabolic Xem658 CL 104 mEq/L 12/25/2015 Comp Metabolic Lub884 CO2 26.0 mEq/L 12/25/2015 Comp Metabolic Xfu462 AN ION GAP 10 12/25/2015 Comp Metabolic Vds059 GL UCOSE 104 mg/dL 12/25/2015 Comp Metabolic Lre456 Cr eat 1.3 mg/dL 12/25/2015 Comp Metabolic Xpz196 eG FR 59 ml/min/1.73m2 12/24 Comp Metabolic Wef910 BUN 23 mg/dL 12/25/2015 Comp Metabolic Xuo180 B/ C Ratio 18.0 Ratio 12/25/2015 Comp Metabolic Fnh393 CA LCIUM 9.1 mg/dL 12/25/2015 Comp Metabolic Bzd881 AL K PHOS 76 U/L 12/25/2015 Comp Metabolic Hio308 T(SGOT) 30 U/L 12/25/2015 Comp Metabolic Dwr474 AL T(SGPT) 28 U/L 12/25/2015 Comp Metabolic Ozd090 BI LI T 0.3 mg/dL 12/25/2015 Comp Metabolic Bnq197 AL BUMIN 4.0 g/dL 12/25/2015 Comp Metabolic Qmt985 TP RO 6.6 g/dL 12/25/2015 Comp Metabolic Jan437 GL OB 2.6 g/dL 12/25/2015 Comp Metabolic Fzd084 A/ G Ratio 1.5 Ratio 12/25/2015 Comp Metabolic Akr032 Os mo 276 mOsmo 12/25/2015 Cbc With [...] 32.4 pg 06/25/2015 Cbc With Differential Ord2 [place]% 7.1 % 06/25/2015 Cbc With Differential Ord2 [...] 2.18 K/ul 06/25/2015 Cbc With Differential Ord2 [place] ABS# 0.7 K/ul 06/25/2015 Cbc With Differential Ord2 Eos ABS# 0.2 K/ul 06/25/2015 Cbc With Differential Ord2 Baso ABS# 0.0 K/ul 06/25/2015 Cbc With Differential Ord2 New Analyzer Notice Please note new ref ranges s tarting 03-28-2015 due to implemntation of new five part differential hematolgy analyzer. 06/25/2015 %Hba1C Qjh659 % HbA1c 64722-4 6.1 % 06/25/2015 %Hba1C Eel940 Gluc Ave 128 mg/dL 06/25/2015 Comp Metabolic Tme387 NA 135 mEq/L 06/25/2015 Comp Metabolic Fal531 K 4.3 mEq/L 06/25/2015 Comp Metabolic Sgg721 CL 102 mEq/L 06/25/2015 Comp Metabolic Jpj857 CO2 26.0 mEq/L 06/25/2015 Comp Metabolic Xit127 AN ION GAP 11 06/25/2015 Comp Metabolic Dfv728 GL UCOSE 81 mg/dL 06/25/2015 Comp Metabolic Oxx737 Cr eat 1.5 mg/dL 06/25/2015 Comp Metabolic Aca724 eG FR 49 ml/min/1.73m2 06/24 Comp Metabolic Osi256 BUN 20 mg/dL 06/25/2015 Comp Metabolic Ptx204 B/ C Ratio 13.2 Ratio 06/25/2015 Comp Metabolic Mtz049 CA LCIUM 9.5 mg/dL 06/25/2015 Comp Metabolic Urm001 AL K PHOS 65 U/L 06/25/2015 Comp Metabolic Ykq163 T(SGOT) 25 U/L 06/25/2015 Comp Metabolic Iuj015 AL T(SGPT) 29 U/L 06/25/2015 Comp Metabolic Fgy137 BI LI T 0.4 mg/dL 06/25/2015 Comp Metabolic Bmh110 AL BUMIN 4.4 g/dL 06/25/2015 Comp Metabolic Pim784 TP RO 7.3 g/dL 06/25/2015 Comp Metabolic Fzg698 GL OB 3.0 g/dL 06/25/2015 Comp Metabolic Vjb691 A/ G Ratio 1.5 Ratio 06/25/2015 Comp Metabolic Kuw177 Os mo 272 mOsmo 06/25/2015 Tsh Ord6 hTSH II 3.03 uIU/mL 06/25/2015 Lipid Ord30 CHOL 150 mg/dL 06/22/2015 Lipid Ord30 HDL 34.0 mg/dl 06/22/2015 Lipid Ord30 TRIG 149 mg/dL 06/22/2015 Lipid Ord30 LDL 86 mg/dL 06/22/2015 Lipid Ord30 C/HDL 4.4 Ratio 06/22/2015 Hepatic Vci682 ALBUMIN 4.3 g/dL 06/22/2015 Hepatic Ouo851 TPRO 7.0 g/dL 06/22/2015 Hepatic Izj069 GLOB 2.8 g/dL 06/22/2015 Hepatic Hao701 A/G Ratio 1.5 Ratio 06/22/2015 Hepatic Wbh345 ALK PHOS 65 U/L 06/22/2015 Hepatic Rol822 ALT(SGPT) 33 U/L 06/22/2015 Hepatic Ttl847 AST(SGOT) 28 U/L 06/22/2015 Hepatic Bwr083 BILI T 0.5 mg/dL 06/22/2015 Hepatic Hkn490 BILI D 0.1 mg/dL 06/22/2015 Hepatic Pbr174 BILI I 0.4 mg/dL 06/22/2015 Review of Systems System Result Effective Dates Constitutional recent illness 03/11/2018 Constitutional No chills [...] Respiratory No pedal edema 05/20/2016 Respiratory snoring 0309/2016 Respiratory No wheezing 05/20/2016 Gastrointestinal No hemorrhoids [...] dentition 03/01/2014 None Full Exam - General 1995 Ears/Nose/Throat oral cavity/pharynx/larynx Overall: hypopharynx benign 03/01/2014 [...] CPT-4: J3301 03/11/2018 THER/PROPH/DIAG INJ SC/IM CPT-4: 12958 03/11/2018 PPPS, SUBSEQ VISIT CPT- 4: G0439 01/13/2018 TRIAMCINOLONE ACET I [place] NOS CPT-4: J3301 12/03/2017 THER/PROPH/DIAG INJ SC/IM CPT-4: 74093 12/03/2017 TRIAMCINOLONE ACET I [place] NOS CPT-4: J3301 06/24/2017 TRIAMCINOLONE ACET I [place] NOS CPT-4: J3301 03/17/2017 TRIAMCINOLONE ACET I [place] NOS CPT-4: J3301 11/18/2016 TRIAMCINOLONE ACET I [place] NOS CPT-4: J3301 03/24/2016 THER/PROPH/DIAG INJ SC/IM CPT-4: 03494 03/24/2016 TRIAMCINOLONE ACET I [place] NOS CPT-4: J3301 08/02/2015 OCCULT BLOOD FECES CPT- 4: 76291 08/03/2014 INITIAL PREVENTIVE EXAM CPT-4: G0402 07/31/2014 Vital Signs Date Vital 03/11/2018 Blood Pressure 1: 134/76 Code: 8480-6 BMI: 35.7 Code: 59354-2 Heart Rate 1: 60 bpm Height: 5'10" SpO2: 96% Weight: 249 lbs 02/10/2018 Blood Pressure 1: 140/72 Code: 8480-6 BMI: 33.7 Code: 28163-3 Heart Rate 1: 48 bpm Height: 5'10" SpO2: 95% Temperature: 36.6 (C ) / 97.8 (F) Weight: 235 lbs 01/13/2018 Blood Pressure 1: 118/66 Code: 8480-6 BMI: 33.3 Code: 22463-8 Heart Rate 1: 57 bpm Height: 5'10" SpO2: 98% Waist Measure (cm): 97 cm Weight: 232 lbs 12/23/2017 Blood Pressure 1: 120/62 Code: 8480-6 BMI: 33.7 Code: 92182-9 Heart Rate 1: 58 bpm Height: 5'10" SpO2: 96% Weight: 235 lbs 06/24/2017 Blood Pressure 1: 136/74 Code: 8480-6 BMI: 38.7 Code: 42361-6 Heart Rate 1: 75 bpm Height: 5'10" SpO2: 98% Weight: 270 lbs 03/17/2017 Blood Pressure 1: 138/78 Code: 8480-6 Heart Rate 1: 65 bpm SpO2: 97% Temperature: 36.6 (C ) / 97.8 (F) 12/24/2016 Blood Pressure 1: 134/78 Code: 8480-6 BMI: 37.2 Code: 11819-3 Heart Rate 1: 56 bpm Height: 5'10" SpO2: 98% Weight: 259 lbs 11/18/2016 Blood Pressure 1: 130/72 Code: 8480-6 BMI: 37.3 Code: 81450-3 Heart Rate 1: 70 bpm Height: 5'10" SpO2: 95% Weight: 260 lbs 06/24/2016 Blood Pressure 1: 134/80 Code: 8480-6 BMI: 38.3 Code: 13275-7 Heart Rate 1: 66 bpm Height: 5'10" SpO2: 98% Weight: 267 lbs 05/20/2016 Blood Pressure 1: 138/82 Code: 8480-6 BMI: 37.4 Code: 97499-7 Heart Rate 1: 65 bpm Height: 5'10" SpO2: 100% Weight: 261 lbs 05/09/2016 Blood Pressure 1: 154/78 Code: 8480-6 Heart Rate 1: 82 bpm Height: SpO2: 89% Temperature: 36.2 (C ) / 97.2 (F) Weight: 04/28/2016 Blood Pressure 1: 112/62 Code: 8480-6 BMI: 37.9 Code: 35017-9 Heart Rate 1: 73 bpm Height: 5'10" SpO2: 94% Temperature: 37.2 (C ) / 98.9 (F) Weight: 264 lbs 04/04/2016 Blood Pressure 1: 150/86 Code: 8480-6 Blood Pressure 1: 148/86 Code: 8480-6 Heart Rate 1: 71 bpm SpO2: 95% SpO2: 93% Temperature: 37.2 (C ) / 99.0 (F) 03/28/2016 Blood Pressure 1: 156/74 Code: 8480-6 BMI: 38.0 Code: 59163-2 Heart Rate 1: 84 bpm Height: 5'10" SpO2: 95% Weight: 265 lbs 02/13/2016 Blood Pressure 1: 118/62 Code: 8480-6 BMI: 39.2 Code: 94091-0 Heart Rate 1: 65 bpm Height: 5'10" SpO2: 96% Weight: 273 lbs 08/02/2015 Blood Pressure 1: 150/82 Code: 8480-6 BMI: 38.3 Code: 66183-3 Heart Rate 1: 75 bpm Height: 5'10" SpO2: 93% Weight: 267 lbs 06/22/2015 Blood Pressure 1: 138/80 Code: 8480-6 BMI: 38.7 Code: 67614-6 Heart Rate 1: 76 bpm Height: 5'10" SpO2: 96% Weight: 270 lbs 07/31/2014 Blood Pressure 1: 138/70 Code: 8480-6 BMI: 37.7 Code: 15523-3 Heart Rate 1: 70 bpm Height: 5'10" Respiratory Rate: 20 bpm Weight: 263 lbs 03/20/2014 Blood Pressure 1: 142/80 Code: 8480-6 BMI: 37.7 Code: 06366-8 Heart Rate 1: 64 bpm Height: 5'10" Weight: 263 lbs 03/01/2014 Blood Pressure 1: 150/90 Code: 8480-6 Blood Pressure 2: 140/80 Code: 8480-6 BMI: 37.3 Code: 70572-4 Heart Rate 1: 56 bpm Height: 5'10" Weight: 260 lbs Functional Status No Functional Status data History of Present Illness Symptom Name Status Resu lt Effective Date Notes Location frontal sinuses 03/11/2018 None Quality fullness [...] Encounters Encounter Performer Loca tion Codes Date 77450 EST. PATIENT, LEVEL IV Diagnosis: Other acute sinusitis[ICD10: J01.80] Diagnosis: Other allergic rhinitis[ICD10: J30.89] Diagnosis: Cough[ICD10: R05] [facility] CPT-4: 37007 03/11/2018 [id number] EST. PATIENT, LEVEL IV Diagnosis: Other acute sinusitis[ICD10: J01.80] Diagnosis: Other allergic rhinitis[ICD10: J30.89] [facility] CPT-4: 12087 02/10/2018 ([id number]) [id number] EST. P ATIENT, LEVEL IV Diagnosis: Essential (primary) hypertension[ICD10: I10] Diagnosis: Mixed hyperlipidemia[ICD10: E78.2] Diagnosis: Nonrheumatic aortic (valve) stenosis[ICD10: I35.0] Trina Cam[facility] CPT-4: 72156 12/23/2017 ([id number]) PER PM LIEN Velazquez EST PAT 65+ YR Diagnosis: Encounter for general adult medical examination with abnormal findings[ICD10: Z00.01] Trina Camacho MD, [facility] CPT-4: 33598 06/24/2017 ([id number]) Patient adm itted to the hospital from clinic (NO CHARGE) Diagnosis: [ICD9: ] Diagnosis: Essential (primary) hypertension[ICD10: I10] Diagnosis: Other allergic rhinitis[ICD10: J30.89] Diagnosis: Cough[ICD10: R05] Diagnosis: Mixed hyperlipidemia[ICD10: E78.2] Trina Camacho MD, [facility] CPT- 4: 53363M 06/24/2017 01934 EST. PATIENT, LEVEL IV Diagnosis: Other acute sinusitis[ICD10: J01.80] Diagnosis: Other allergic rhinitis[ICD10: J30.89] Lulu Camacho MD, [facility] CPT-4: 50718 03/17/2017 ([id number]) 69533 EST. P ATIENT, LEVEL IV Diagnosis: Essential (primary) hypertension[ICD10: I10] Diagnosis: Mixed hyperlipidemia[ICD10: E78.2] Trina Camacho MD, [facility] CPT- 4: 38572 12/24/2016 89500 EST. PATIENT, LEVEL IV Diagnosis: Acute bronchitis due to other specified organisms[ICD10: J20.8] Lulu Camacho MD, [facility] CPT-4: 92572 11/18/2016 ([id number]) 63341 EST. P ATIENT, LEVEL III Diagnosis: Essential (primary) hypertension[ICD10: I10] Trina Camacho MD, C CPT-4: 60615 06/24/2016 ([id number]) 83841 EST. P ATIENT, LEVEL III Diagnosis: Essential (primary) hypertension[ICD10: I10] Diagnosis: Cough[ICD10: R05] Diagnosis: Candidal stomatitis[ICD10: B37.0] Trina Camacho MD, [facility] CPT-4: 76702 05/20/2016 ([id number]) Patient adm itted to the hospital from clinic (NO CHARGE) Diagnosis: Pneumonia, unspecified organism[ICD10: J18.9] Diagnosis: Cough[ICD10: R05] Trina Camacho MD, [facility] CPT-4: 00087O 05/09/2016 71429 EST. PATIENT, LEVEL III Diagnosis: Acute laryngopharyngitis[ICD10: J06.0] Diagnosis: Cough[ICD10: R05] Lulu Camacho MD, [facility] CPT-4: 90394 04/28/2016 ([id number]) 69135 EST. P ATIENT, LEVEL III Diagnosis: Cough[ICD10: R05] Diagnosis: Essential (primary) hypertension[ICD10: I10] Susu Camacho MD, [facility] CPT-4: 39732 04/04/2016 ([id number]) 39189 EST. P ATIENT, LEVEL III Diagnosis: Cough[ICD10: R05] Diagnosis: Pneumonia, unspecified organism[ICD10: J18.9] Susu Camacho MD, [facility] CPT-4: 36504 03/28/2016 68860 EST. PATIENT, LEVEL IV Diagnosis: Other allergic rhinitis[ICD10: J30.89] Diagnosis: Other acute sinusitis[ICD10: J01.80] Lulu Camacho MD, [facility] CPT- 4: 41283 02/13/2016 30994 EST. PATIENT, LEVEL IV Diagnosis: Acute bronchitis due to other specified organisms[ICD10: J20.8] Diagnosis: Other acute sinusitis[ICD10: J01.80] Diagnosis: Other allergic rhinitis[ICD10: J30.89] Lulu Camacho MD, [facility] CPT-4: 81014 08/02/2015 ([id number]) 79911 EST. P ATIENT, LEVEL IV Diagnosis: Essential (primary) hypertension[ICD10: I10] Diagnosis: Mixed hyperlipidemia[ICD10: E78.2] Diagnosis: Impaired fasting glucose[ICD10: R73.01] Susu Camacho MD, [facility] CPT-4: 00958 06/22/2015 ([id number]) 43585 EST. P ATIENT, LEVEL IV Diagnosis: ESSENTIAL HYPERTENSION[ICD9: 401.9] Diagnosis: Aortic stenosis[ICD9: 424.1] Diagnosis: Hyperlipidemia[ICD9: 272.4] Trina Camacho MD, [facility] CPT-4: 41619 03/20/2014 ([id number]) OFFICE [facility] 4 Diagnosis: ESSENTIAL HYPERTENSION[ICD9: 401.9] Diagnosis: DIABETES TYPE II[ICD9: 250.00] Diagnosis: Heart murmur[ICD9: 785.2] Diagnosis: Snoring[ICD9: 786.09] Diagnosis: Sleep-disordered breathing[ICD9: 780.59] Trina Camacho MD, Eric CPT-4: 08092 03/01/2014 Plan of Care Planned Activity Notes C odes Status Date Visit Plan: Sinusitis - Pt has acut [...] in the nasal steroid allergy spray. 03/11/2018 Patient Education: Patient Medication Summary Completed [...] allergy spray. 02/10/2018 Appointment: Lulu Mann WPtel: [address] [place], [place] [phone] (15 min) Moderate 02/10/2018 Patient Education: Patient [...] increased activity 12/23/2017 Appointment: Trina Camacho WPtel: [address] [place], [place] [phone] (15 min) Moderate 12/23/2017 Patient Education: Patient [...] inhales bid. 06/24/2017 Appointment: Trina Camacho WPtel: [address] [place], [place] [id number] (15 min) Moderate 06/24/2017 Patient Education: Patient [...] Appointment: Lulu Mann WPtel: [phone] [phone] (15 min) Moderate 03/17/2017 Patient Education: Patient Medication Summary Completed 03/17/2017 Visit Plan: Hypertension - well con koleed [...] medications. 12/24/2016 Appointment: Trina Camacho WPtel: [phone] [facility] (15 min) Moderate 12/24/2016 Patient Education: Patient [...] acutely worsen. 11/18/2016 Appointment: Lulu Mann WPtel: [phone] [phone] (30 min) Complex 11/18/2016 Patient Education: [...] at home. 06/24/2016 Appointment: Trina Camacho WPtel: [phone] [facility] (15 min) Moderate 06/24/2016 Patient Education: [...] and swallow 05/20/2016 Appointment: Trina Camacho WPtel: [phone] [facility] (15 min) Moderate 05/20/2016 Patient Education: Patient Medication Summary Completed 05/20/2016 Patient Education: Obesity Completed 05/20/2016 Patient Education: Hypertension Completed 05/20/2016 Visit Plan: PNEUMONIA - PT IS CLINI WESLY SYMPTOMATIC FOR PNEUMONIA - A CHEST XRAY, SPUTUM C AND S, BLOOD CULTURES, AND LABS HAVE BEEN ORDERED IN ORDER TO FURTHER WORK-UP THE ACUTE ILLNESS. 05/09/2016 Appointment: Susu Mills WPtel: [address] [place], [place] [phone] (15 min) Moderate 05/09/2016 Patient Education: Patient Medication Summary Completed 05/09/2016 Visit Plan: URI - Pt advised to inc rease fluids, vitamin C. Discussed natural and expected course of this diagnosis and need to alert me if symptoms do not follow expected course, or if any worse. RX sent to patient's pharmacy. 04/28/2016 Appointment: Lulu Mann WPtel: [address] [place], [place] [phone] (15 min) Moderate 04/28/2016 Patient Education: Patient [...] verbalized understanding. 04/04/2016 Appointment: Susu Mills WPtel: [address] [place], [place] [phone] (10 min) Simple 04/04/2016 Patient Education: Patient Medication Summary Completed 04/04/2016 Patient Education: Hypertension Completed 04/04/2016 Visit Plan: Pneumonia-cough- improv ing-finish abx and call if symptoms do not completely resolved-patient verbalized understanding of plan. 03/28/2016 Appointment: Susu Mills WPtel: [address] [place], [place] [phone] (30 min) Complex 03/28/2016 Patient Education: Patient Medication Summary Completed 03/28/2016 Patient Education: Obesity Completed 03/28/2016 Visit Plan: Cough-kenalog injection today-start abx as directed-f/u , sooner if needed 03/24/2016 Appointment: Susu Mills WPtel: [address] [place], [place] [phone] (10 min) Simple 03/24/2016 Patient Education: Patient [...] show improvement. 02/13/2016 Appointment: Susu Mills WPtel: [facility] [place] [phone] (15 min) Moderate 02/13/2016 Patient Education: Patient [...] spray. 08/02/2015 Appointment: Lulu Mann WPtel: [phone] [place] [phone] (15 min) Moderate 08/02/2015 Patient Education: Patient [...] Patient Medication Summary Completed 07/31/2014 Patient Education: [facility] - [employer] - Lisinopril - 18+ - Dynamic Portal ID Completed 07/31/2014 Visit Plan: DWA-ngbuzstp-nfilx slig htly elevated-patient tolerated lisinopril 5mg BID well, did not tolerate 10mg daily in the past. Recommend he monitor blood pressure and pulse at home and bring in readings for review. Aortic Stenosis-recommend stress test-refer to Dr Avilez for evaluation Hyperlipidemia-continue statin medication-increase exercise and weight loss-low fat diet. Repeat labs in 3-6 months-Patient verbalized understanding of plan. 03/20/2014 Visit Plan: NYI-fqllbwmq-nodcu slig htly elevated-patient tolerated lisinopril 5mg BID well, did not tolerate 10mg daily in the past. Recommend he monitor blood pressure and pulse at home and bring in readings for review. Aortic Stenosis-recommend stress test-refer to Dr Avilez for evaluation Hyperlipidemia-continue statin medication-increase exercise and weight loss-low fat diet. Repeat labs in 3-6 months-Patient verbalized understanding of plan. Daytime eifwycvoslg-wxfqpyq-swkldxp-refer for sleep study 03/20/2014 Appointment: Follow up 03/20/2014 Patient Education: Patient Medication Summary Completed 03/20/2014 Care Plan: Referral Order SNOMED-CT : [id number] Ordered 03/20/2014 Visit Plan: Hypertension - uncontro [...] physician. 03/01/2014 [facility]ment[phone] [place] [facility] 03/01/2014 Patient Education: Patient Medication Summary Completed 03/01/2014 Patient Education: Hypertension Completed 03/01/2014 Referral: Dr Avilez Referral Initiated Instructions Comment . Hypertension - unc ontrolled - the [...] with dietary changes and increased activity . MQM-djicbuus-nudcp slightly elevated-patient tolerated lisinopril 5mg BID well, [...] in the nasal steroid allergy spray. . Cough-kenalog inje ction today-start abx as [...] assure normal liver response to medications. . HTN-no well contro lled-monitor over the weekend and call with readings-call for chest pain, shortness of breath, etc. Patient verbalized understanding of plan. Cough-recent pneumonia-history of tobacco use-symptoms improved-RX for a short course of prednisone sent to patient's pharmacy and instructed on use. Call Thursday with update. Patient verbalized understanding. . Well Adult - pt wa s [...] - dulera inhaler two inhales bid. . Pneumonia-cough- i mproving-finish abx and call if symptoms do not completely resolved-patient verbalized understanding of plan. . Sinusitis - [...] in the nasal steroid allergy spray. . Occult blood negat cassy x3. . Allergies - chroni c - recommended [...] in the nasal steroid allergy spray. . IVK-wglbhnnn-kzkua slightly elevated-patient tolerated lisinopril 5mg BID well, did not tolerate 10mg daily in the past. Recommend he monitor blood pressure and pulse at home and bring in readings for review. Aortic Stenosis-recommend stress test-refer to Dr Avilez for evaluation Hyperlipidemia-continue statin medication-increase exercise and weight loss-low fat diet. Repeat labs in 3-6 months-Patient verbalized understanding of plan. Daytime hlybcofsljr-xuvfqbt-tsecmxp-refer for sleep study
--- OUTSIDE RECORDS SUMMARY | 2019-03-16 12:42 | XMS REPORT | CCD ---
Author Author Farshad Camacho Organization Trina Camacho MD, [facility] Address [address] [place] [address] Phone Care Team Providers Care Copra Processor Name Role Phone PP Unavailable CCM Unavailable Summary Purpose Interface Exchange Insurance Providers Payer name Policy type / Coverage type Covered constitution party ID Effective Begin Date Effective End Date WPS Medicare Part B Medicare Part B [id number] Unknown Cigna Medicare Part B 80 [id number] Unknown Family history Brother Diagnosis Age At Onset lung cancer Unknown Alcoholism Unknown Mother Diagnosis Age At Onset Cancer Unknown Pancratic cancer Unknown Arthritis Unknown Father Diagnosis Age At Onset Alcoholism Unknown Social History Social History Element Codes Description Effective Dates Marital status Unknown M alberto Rice 03/01/2014 Number of children Unknown 3 and 3 step 03/01/[address]: 3643500 Former smoker quit 199603/01/2014 Allergies, Adverse Reactions, [...] Fill Instructions prednisone 10 mg tablet RxNorm: 165526 Tablet(s) PO UD 03/11/2018 No Stop Date Active 60,50,40,30,20,10 Kenalog 40 mg/mL [employer]ussell pension for injection RxNorm: 8004106 1 Milliliter(s) Inj 03/11/2018 03/11/2018 In active Keflex 500 mg capsule RxNorm: 775066 1 Capsule(s) PO TID 03/11/2018 03/20/2018 Active Symbicort 160 mcg-4. 5 mcg/actuation HFA aerosol inhaler RxNorm: 7199707 2 Puff(s) INH BID 02/10/2018 No Stop Date Active Keflex 500 mg capsule RxNorm: 976844 1 Capsule(s) PO TID 02/10/2018 02/19/2018 Inactive prednisone 10 mg tablet RxNorm: 399140 Tablet(s) PO UD start on 11/1902/10/2018 03/09/2018 Inactive 60,50,40,30,20,10 Advair Diskus 250 mc g-50 mcg/dose powder for inhalation RxNorm: 1864440 1 Puff(s) INH BID 12/29/2017 No Stop Date Active Zithromax Z-Poncho 250 mg tablet RxNorm: 674302 1 Tablet(s) PO UD 12/29/2017 01/02/2018 Inactive zpack Tessalon Perles 100 mg capsule RxNorm: 207564 1-2 Capsule(s) PO TID as needed 12/29/2017 01/02/2018 In active allopurinol 300 mg t ablet RxNorm: Tablet(s) TAKE ONE TA BLET BY MOUTH ONCE DAILY 12/10/2017 No Stop Date Active Kenalog 40 mg/mL russell pension for injection RxNorm: 2296229 1.5 Milliliter(s) In j 12/03/2017 12/03/2017 In active allopurinol 300 mg t ablet RxNorm: 385547 TAKE ONE TABLET BY MO UTH ONCE DAILY 09/08/2017 12/09/2017 In active allopurinol 300 mg t ablet RxNorm: TAKE ONE TABLET BY MO UTH ONCE DAILY 06/15/2017 09/07/2017 In active Keflex 500 mg capsule RxNorm: 031316 1 Capsule(s) PO TID 05/04/2017 05/13/2017 Inactive Kenalog 40 mg/mL russell pension for injection RxNorm: 7440728 1 Milliliter(s) Inj 03/17/2017 03/17/2017 In active Keflex 500 mg capsule RxNorm: 095848 1 Capsule(s) PO TID 03/13/2017 03/12/2017 Inactive Keflex 500 mg capsule RxNorm: 167780 1 Capsule(s) PO TID 03/13/2017 03/22/2017 Inactive prednisone 10 mg tablet RxNorm: 799762 Tablet(s) PO UD start on 11/1911/18/2016 12/23/2016 Inactive 60,50,40,30,20,10 Advair Diskus 250 mc g-50 mcg/dose powder for inhalation RxNorm: 2153027 1 Puff(s) INH BID 11/18/2016 12/28/2017 Inactive doxycycline hyclate 100 mg capsule RxNorm: 1350176 1 Capsule(s) PO BID 11/18/2016 11/27/2016 In active Kenalog 40 mg/mL russell pension for injection RxNorm: 9294847 Milliliter(s) Inj 11/18/2016 11/18/2016 In active nystatin 100,000 uni t/mL oral suspension RxNorm: 304438 5 Milliliter(s) PO QI D 05/20/2016 05/29/2016 In active allopurinol 300 mg t ablet RxNorm: 482387 TAKE ONE TABLET BY [facility] ONCE DAILY 05/11/2016 05/05/2017 In active Tessalon Perles 100 mg capsule RxNorm: 958991 1-2 Capsule(s) PO TID as needed 04/29/2016 05/03/2016 In active Prilosec OTC 20 mg t ablet,delayed release RxNorm: 637410 Tablet(s) PO 04/28/2016 11/16/2016 In active doxycycline hyclate 100 mg capsule RxNorm: 0241263 1 Capsule(s) PO BID 04/28/2016 05/07/2016 In active Tamiflu 75 mg capsule RxNorm: 142536 1 Capsule(s) PO BID 04/07/2016 04/11/2016 Inactive Tamiflu 75 mg capsule RxNorm: 021130 1 Capsule(s) PO BID 04/07/2016 04/06/2016 Inactive prednisone 20 mg tablet RxNorm: 725010 1 Tablet(s) PO BID 04/04/2016 04/08/2016 Inactive Kenalog 40 mg/mL russell pension for injection RxNorm: 7027070 1 Milliliter(s) Inj 03/24/2016 03/24/2016 In active cefdinir 300 mg capsule RxNorm: 670153 1 Capsule(s) PO BID 03/24/2016 03/30/2016 Inactive Zithromax Z-Poncho 250 mg tablet RxNorm: 284328 1 Tablet(s) PO UD 03/24/2016 03/28/2016 Inactive zpack cefdinir 300 mg capsule RxNorm: 225403 1 Capsule(s) PO BID 03/24/2016 03/23/2016 Inactive Flonase Allergy Reli ef 50 mcg/actuation nasal spray,suspension RxNorm: 6268525 1 [place] NASAL BID 02/13/2016 No Stop Date Active doxycycline hyclate 100 mg capsule RxNorm: 6557667 1 Capsule(s) PO BID 02/13/2016 02/19/2016 In active lisinopril 5 mg tablet RxNorm: 888888 1 Tablet(s) PO BID TAKE ONE TABLET BY MO UT TWICE DAILY 11/20/2015 05/12/2016 Inactive hold until patient calls fo r refill doxycycline hyclate 100 mg capsule RxNorm: 6783353 1 Capsule(s) PO BID 08/02/2015 08/08/2015 In active Kenalog 40 mg/mL russell pension for injection RxNorm: 3671782 Milliliter(s) Inj 08/02/2015 08/02/2015 In active lisinopril 5 mg tablet RxNorm: 075784 TAKE ONE TABLET BY MOUTH TWICE DAILY 06/11/2015 11/19/2015 In active allopurinol 300 mg t ablet RxNorm: 533597 1 Tablet(s) PO daily 05/08/2015 05/01/2016 Inactive lisinopril 5 mg tablet RxNorm: 358384 1 Tablet(s) PO BID 01/30/2015 05/29/2015 Inactive [AttnRPh: Saving apply/adjudicate RxGRP:SG20 RxBIN:[id number] RxPCN: ID#:[id number]] Zithromax Z-Poncho 250 mg tablet RxNorm: 156178 1 Tablet(s) PO UD 01/10/2015 03/23/2016 Inactive zpack allopurinol 300 mg t ablet RxNorm: 946409 1 Tablet(s) PO daily 10/31/2014 04/28/2015 Inactive lisinopril 5 mg tablet RxNorm: 184426 1 Tablet(s) PO BID 07/31/2014 11/27/2014 Inactive [AttnRPh: Saving apply/adjudicate RxGRP:SG20 RxBIN:[id number] RxPCN:HT ID#:[id number]] allopurinol 300 mg t ablet RxNorm: 472077 1 Tablet(s) PO daily 05/17/2014 10/30/2014 Inactive lisinopril 5 mg tablet RxNorm: 183272 1 Tablet(s) PO BID 03/01/2014 06/28/2014 Inactive [SAVINGS FOR UNINSURED PATIENTS -- BIN:[id number], PCN: [id number], Group: [id number], ID# [id number], Process claim through SmartCloud, for questions: . THIS IS NOT INSURANCE.] Fish Oil 1,000 mg ca psule RxNorm: 3 Capsule(s) PO daily No Start Date Active B Complex 1 oral RxNorm: 37683 oral No Start Date Active Vitamin D3 1,000 uni t capsule RxNorm: 316228 2 Capsule(s) PO daily No Start Date Active Zyrtec 10 mg capsule RxNorm: 8290077 1 Capsule(s) PO daily No Start Date Active fenofibrate nanocrys tallized 48 mg tablet RxNorm: 377377 1 Tablet(s) PO daily No Start Date Active metoprolol tartrate 25 mg tablet RxNorm: 697613 1 Tablet(s) PO daily No Start Date Active multivitamin tablet RxNorm: 1 Tablet(s) PO daily No Start Date Active pravastatin 40 mg ta blet RxNorm: 741747 1 Tablet(s) PO daily No Start Date Active Tessalon Perles 100 mg capsule RxNorm: 672005 1-2 Capsule(s) PO TID as needed No Start Date 04/28/2016 Inactive allopurinol 300 mg t ablet RxNorm: 149410 1 Tablet(s) PO daily No Start Date 05/16/2014 Inactive metformin 500 mg tablet RxNorm: 182527 1 Tablet(s) PO BID No Start Date 02/14/2014 Inactive pioglitazone 15 mg t ablet RxNorm: 706183 1 Tablet(s) PO daily No Start Date 07/30/2014 Inactive lisinopril 5 mg tablet RxNorm: 301057 1 Tablet(s) PO daily No Start Date 02/28/2014 Inactive losartan 25 mg tablet RxNorm: 077712 1/2 Tablet(s) PO daily No Start Date 01/12/2018 Inactive Zithromax Z-Poncho 250 mg tablet RxNorm: 132493 1 Tablet(s) PO UD No Start Date 01/09/2015 Inactive zpack Medication Administered Medication Codes Instruc tions Start Date Status Kenalog 40 mg/mL suspension for injection RxNorm: 6685521 1Milliliter 03/11/2018 A ctive Kenalog 40 mg/mL suspension for injection RxNorm: 1727511 1.5Milliliter 12/03/2017 No longer Active Kenalog 40 mg/mL suspension for injection RxNorm: 2908304 1Milliliter 03/17/2017 N o longer Active Kenalog 40 mg/mL suspension for injection RxNorm: 9419676 Milliliter 11/18/2016 No longer Active Kenalog 40 mg/mL suspension for injection RxNorm: 5870706 1Milliliter 03/24/2016 N o longer Active Kenalog 40 mg/mL suspension for injection RxNorm: 1736957 Milliliter 08/02/2015 No longer Active Immunizations Vaccine [...] Item Item Code Result Date Comp Metabolic Wya589 NA 136 mEq/L 12/22/2017 Comp Metabolic Rga779 K 4.2 mEq/L 12/22/2017 Comp Metabolic Whu786 CL 105 mEq/L 12/22/2017 Comp Metabolic Moq491 CO2 30.0 mEq/L 12/22/2017 Comp Metabolic Wsn108 AN ION GAP 5 12/22/2017 Comp Metabolic Uan437 GL UCOSE 85 mg/dL 12/22/2017 Comp Metabolic Zbf685 Cr eat 1.2 mg/dL 12/22/2017 Comp Metabolic Iwd428 eG FR 62 ml/min/1.73m2 12/22 Comp Metabolic Dre733 BUN 17 mg/dL 12/22/2017 Comp Metabolic Jbs298 B/ C Ratio 13.9 Ratio 12/22/2017 Comp Metabolic Fba318 CA LCIUM 9.3 mg/dL 12/22/2017 Comp Metabolic Exh637 AL K PHOS 78 U/L 12/22/2017 Comp Metabolic Rha794 T(SGOT) 24 U/L 12/22/2017 Comp Metabolic Khg911 AL T(SGPT) 28 U/L 12/22/2017 Comp Metabolic Wbm708 BI LI T 0.5 mg/dL 12/22/2017 Comp Metabolic Zos562 AL BUMIN 4.0 g/dL 12/22/2017 Comp Metabolic Ged153 TP RO 6.6 g/dL 12/22/2017 Comp Metabolic Ufi974 GL OB 2.6 g/dL 12/22/2017 Comp Metabolic Ugf738 A/ G Ratio 1.6 Ratio 12/22/2017 Comp Metabolic Osz105 Os mo 273 mOsmo 12/22/2017 Cbc With [...] 21.6 % 12/22/2017 Cbc With Differential Ord2 [place]% 6.3 % 12/22/2017 Cbc With Differential Ord2 [...] 1.92 K/ul 12/22/2017 Cbc With Differential Ord2 [place] ABS# 0.6 K/ul 12/22/2017 Cbc With Differential Ord2 Eos ABS# 0.3 K/ul 12/22/2017 Cbc With Differential Ord2 Baso ABS# 0.0 K/ul 12/22/2017 Comp Metabolic Ehc144 NA 135 mEq/L 06/22/2017 Comp Metabolic Rvx632 K 4.2 mEq/L 06/22/2017 Comp Metabolic Xzr349 CL 101 mEq/L 06/22/2017 Comp Metabolic Fdw217 CO2 27.0 mEq/L 06/22/2017 Comp Metabolic Viv455 AN ION GAP 11 06/22/2017 Comp Metabolic Fmw537 GL UCOSE 89 mg/dL 06/22/2017 Comp Metabolic Xvx903 Cr eat 1.5 mg/dL 06/22/2017 Comp Metabolic Qpk918 eG FR 51 ml/min/1.73m2 06/22 Comp Metabolic Rsa885 BUN 16 mg/dL 06/22/2017 Comp Metabolic Haa994 B/ C Ratio 11.0 Ratio 06/22/2017 Comp Metabolic Nqj723 CA LCIUM 8.9 mg/dL 06/22/2017 Comp Metabolic Mny424 AL K PHOS 79 U/L 06/22/2017 Comp Metabolic Rhb928 T(SGOT) 26 U/L 06/22/2017 Comp Metabolic Vhv689 AL T(SGPT) 26 U/L 06/22/2017 Comp Metabolic Xvz845 BI LI T 0.4 mg/dL 06/22/2017 Comp Metabolic Ohj068 AL BUMIN 4.1 g/dL 06/22/2017 Comp Metabolic Kqk342 TP RO 6.9 g/dL 06/22/2017 Comp Metabolic Rvk172 GL OB 2.8 g/dL 06/22/2017 Comp Metabolic Rnt869 A/ G Ratio 1.5 Ratio 06/22/2017 Comp Metabolic Lxs915 Os mo 271 mOsmo 06/22/2017 Cbc With [...] 32.6 pg 06/22/2017 Cbc With Differential Ord2 [place]% 7.9 % 06/22/2017 Cbc With Differential Ord2 [...] 2.14 K/ul 06/22/2017 Cbc With Differential Ord2 [place] ABS# 0.8 K/ul 06/22/2017 Cbc With Differential [...] 25.2 % 12/25/2015 Cbc With Differential Ord2 [place]% 7.6 % 12/25/2015 Cbc With Differential Ord2 [...] 1.86 K/ul 12/25/2015 Cbc With Differential Ord2 [place] ABS# 0.6 K/ul 12/25/2015 Cbc With Differential Ord2 Eos ABS# 0.2 K/ul 12/25/2015 Cbc With Differential Ord2 Baso ABS# 0.1 K/ul 12/25/2015 Comp Metabolic Rdj486 NA 136 mEq/L 12/25/2015 Comp Metabolic Yyo835 K 4.2 mEq/L 12/25/2015 Comp Metabolic Uab399 CL 104 mEq/L 12/25/2015 Comp Metabolic Rrr292 CO2 26.0 mEq/L 12/25/2015 Comp Metabolic Qqn930 AN ION GAP 10 12/25/2015 Comp Metabolic Qas555 GL UCOSE 104 mg/dL 12/25/2015 Comp Metabolic Cyv014 Cr eat 1.3 mg/dL 12/25/2015 Comp Metabolic Cpc971 eG FR 59 ml/min/1.73m2 12/24 Comp Metabolic Shg843 BUN 23 mg/dL 12/25/2015 Comp Metabolic Eto840 B/ C Ratio 18.0 Ratio 12/25/2015 Comp Metabolic Bso196 CA LCIUM 9.1 mg/dL 12/25/2015 Comp Metabolic Qst654 AL K PHOS 76 U/L 12/25/2015 Comp Metabolic Ikg653 T(SGOT) 30 U/L 12/25/2015 Comp Metabolic Zny187 AL T(SGPT) 28 U/L 12/25/2015 Comp Metabolic Wnn484 BI LI T 0.3 mg/dL 12/25/2015 Comp Metabolic Jhv252 AL BUMIN 4.0 g/dL 12/25/2015 Comp Metabolic Kuh561 TP RO 6.6 g/dL 12/25/2015 Comp Metabolic Jfw087 GL OB 2.6 g/dL 12/25/2015 Comp Metabolic Tcn038 A/ G Ratio 1.5 Ratio 12/25/2015 Comp Metabolic Awe095 Os mo 276 mOsmo 12/25/2015 Cbc With [...] 32.4 pg 06/25/2015 Cbc With Differential Ord2 [place]% 7.1 % 06/25/2015 Cbc With Differential Ord2 [...] 2.18 K/ul 06/25/2015 Cbc With Differential Ord2 [place] ABS# 0.7 K/ul 06/25/2015 Cbc With Differential Ord2 Eos ABS# 0.2 K/ul 06/25/2015 Cbc With Differential Ord2 Baso ABS# 0.0 K/ul 06/25/2015 Cbc With Differential Ord2 New Analyzer Notice Please note new ref ranges s tarting 03-28-2015 due to implemntation of new five part differential hematolgy analyzer. 06/25/2015 %Hba1C Xzc008 % HbA1c 08432-6 6.1 % 06/25/2015 %Hba1C Hce033 Gluc Ave 128 mg/dL 06/25/2015 Comp Metabolic Awh315 NA 135 mEq/L 06/25/2015 Comp Metabolic Vvq228 K 4.3 mEq/L 06/25/2015 Comp Metabolic Xfs683 CL 102 mEq/L 06/25/2015 Comp Metabolic Qxm607 CO2 26.0 mEq/L 06/25/2015 Comp Metabolic Ypj146 AN ION GAP 11 06/25/2015 Comp Metabolic Ngr341 GL UCOSE 81 mg/dL 06/25/2015 Comp Metabolic Itn038 Cr eat 1.5 mg/dL 06/25/2015 Comp Metabolic Pzr910 eG FR 49 ml/min/1.73m2 06/24 Comp Metabolic Hvi985 BUN 20 mg/dL 06/25/2015 Comp Metabolic Dxx962 B/ C Ratio 13.2 Ratio 06/25/2015 Comp Metabolic Ipx950 CA LCIUM 9.5 mg/dL 06/25/2015 Comp Metabolic Drz182 AL K PHOS 65 U/L 06/25/2015 Comp Metabolic Mpb673 T(SGOT) 25 U/L 06/25/2015 Comp Metabolic Zbo835 AL T(SGPT) 29 U/L 06/25/2015 Comp Metabolic Ksq105 BI LI T 0.4 mg/dL 06/25/2015 Comp Metabolic Bsh264 AL BUMIN 4.4 g/dL 06/25/2015 Comp Metabolic Ssh474 TP RO 7.3 g/dL 06/25/2015 Comp Metabolic Lvh004 GL OB 3.0 g/dL 06/25/2015 Comp Metabolic Hjs457 A/ G Ratio 1.5 Ratio 06/25/2015 Comp Metabolic Ssk440 Os mo 272 mOsmo 06/25/2015 Tsh Ord6 hTSH II 3.03 uIU/mL 06/25/2015 Lipid Ord30 CHOL 150 mg/dL 06/22/2015 Lipid Ord30 HDL 34.0 mg/dl 06/22/2015 Lipid Ord30 TRIG 149 mg/dL 06/22/2015 Lipid Ord30 LDL 86 mg/dL 06/22/2015 Lipid Ord30 C/HDL 4.4 Ratio 06/22/2015 Hepatic Asg742 ALBUMIN 4.3 g/dL 06/22/2015 Hepatic Ubh242 TPRO 7.0 g/dL 06/22/2015 Hepatic Tbe930 GLOB 2.8 g/dL 06/22/2015 Hepatic Zoe276 A/G Ratio 1.5 Ratio 06/22/2015 Hepatic Zac272 ALK PHOS 65 U/L 06/22/2015 Hepatic Eqw794 ALT(SGPT) 33 U/L 06/22/2015 Hepatic Zke066 AST(SGOT) 28 U/L 06/22/2015 Hepatic Kee495 BILI T 0.5 mg/dL 06/22/2015 Hepatic Hbi785 BILI D 0.1 mg/dL 06/22/2015 Hepatic Qae977 BILI I 0.4 mg/dL 06/22/2015 Review of [...] CPT-4: J3301 03/11/2018 THER/PROPH/DIAG INJ SC/IM CPT-4: 95394 03/11/2018 PPPS, SUBSEQ VISIT CPT- 4: G0439 01/13/2018 TRIAMCINOLONE ACET I [place] NOS CPT-4: J3301 12/03/2017 THER/PROPH/DIAG INJ SC/IM CPT-4: 25468 12/03/2017 TRIAMCINOLONE ACET I [place] NOS CPT-4: J3301 06/24/2017 TRIAMCINOLONE ACET I [place] NOS CPT-4: J3301 03/17/2017 TRIAMCINOLONE ACET I [place] NOS CPT-4: J3301 11/18/2016 TRIAMCINOLONE ACET I [place] NOS CPT-4: J3301 03/24/2016 THER/PROPH/DIAG INJ SC/IM CPT-4: 51604 03/24/2016 TRIAMCINOLONE ACET I [place] NOS CPT-4: J3301 08/02/2015 OCCULT BLOOD FECES CPT- 4: 75598 08/03/2014 INITIAL PREVENTIVE EXAM CPT-4: G0402 07/31/2014 Vital Signs Date Vital 03/11/2018 Blood Pressure 1: 134/76 Code: 8480-6 BMI: 35.7 Code: 66023-3 Heart Rate 1: 60 bpm Height: 5'10" SpO2: 96% Weight: 249 lbs 02/10/2018 Blood Pressure 1: 140/72 Code: 8480-6 BMI: 33.7 Code: 20667-4 Heart Rate 1: 48 bpm Height: 5'10" SpO2: 95% Temperature: 36.6 (C ) / 97.8 (F) Weight: 235 lbs 01/13/2018 Blood Pressure 1: 118/66 Code: 8480-6 BMI: 33.3 Code: 85531-8 Heart Rate 1: 57 bpm Height: 5'10" SpO2: 98% Waist Measure (cm): 97 cm Weight: 232 lbs 12/23/2017 Blood Pressure 1: 120/62 Code: 8480-6 BMI: 33.7 Code: 40272-7 Heart Rate 1: 58 bpm Height: 5'10" SpO2: 96% Weight: 235 lbs 06/24/2017 Blood Pressure 1: 136/74 Code: 8480-6 BMI: 38.7 Code: 84114-1 Heart Rate 1: 75 bpm Height: 5'10" SpO2: 98% Weight: 270 lbs 03/17/2017 Blood Pressure 1: 138/78 Code: 8480-6 Heart Rate 1: 65 bpm SpO2: 97% Temperature: 36.6 (C ) / 97.8 (F) 12/24/2016 Blood Pressure 1: 134/78 Code: 8480-6 BMI: 37.2 Code: 73798-5 Heart Rate 1: 56 bpm Height: 5'10" SpO2: 98% Weight: 259 lbs 11/18/2016 Blood Pressure 1: 130/72 Code: 8480-6 BMI: 37.3 Code: 34576-4 Heart Rate 1: 70 bpm Height: 5'10" SpO2: 95% Weight: 260 lbs 06/24/2016 Blood Pressure 1: 134/80 Code: 8480-6 BMI: 38.3 Code: 97936-4 Heart Rate 1: 66 bpm Height: 5'10" SpO2: 98% Weight: 267 lbs 05/20/2016 Blood Pressure 1: 138/82 Code: 8480-6 BMI: 37.4 Code: 62601-9 Heart Rate 1: 65 bpm Height: 5'10" SpO2: 100% Weight: 261 lbs 05/09/2016 Blood Pressure 1: 154/78 Code: 8480-6 Heart Rate 1: 82 bpm Height: SpO2: 89% Temperature: 36.2 (C ) / 97.2 (F) Weight: 04/28/2016 Blood Pressure 1: 112/62 Code: 8480-6 BMI: 37.9 Code: 21503-8 Heart Rate 1: 73 bpm Height: 5'10" SpO2: 94% Temperature: 37.2 (C ) / 98.9 (F) Weight: 264 lbs 04/04/2016 Blood Pressure 1: 150/86 Code: 8480-6 Blood Pressure 1: 148/86 Code: 8480-6 Heart Rate 1: 71 bpm SpO2: 95% SpO2: 93% Temperature: 37.2 (C ) / 99.0 (F) 03/28/2016 Blood Pressure 1: 156/74 Code: 8480-6 BMI: 38.0 Code: 60194-0 Heart Rate 1: 84 bpm Height: 5'10" SpO2: 95% Weight: 265 lbs 02/13/2016 Blood Pressure 1: 118/62 Code: 8480-6 BMI: 39.2 Code: 80538-8 Heart Rate 1: 65 bpm Height: 5'10" SpO2: 96% Weight: 273 lbs 08/02/2015 Blood Pressure 1: 150/82 Code: 8480-6 BMI: 38.3 Code: 45155-2 Heart Rate 1: 75 bpm Height: 5'10" SpO2: 93% Weight: 267 lbs 06/22/2015 Blood Pressure 1: 138/80 Code: 8480-6 BMI: 38.7 Code: 50739-7 Heart Rate 1: 76 bpm Height: 5'10" SpO2: 96% Weight: 270 lbs 07/31/2014 Blood Pressure 1: 138/70 Code: 8480-6 BMI: 37.7 Code: 96030-5 Heart Rate 1: 70 bpm Height: 5'10" Respiratory Rate: 20 bpm Weight: 263 lbs 03/20/2014 Blood Pressure 1: 142/80 Code: 8480-6 BMI: 37.7 Code: 90987-5 Heart Rate 1: 64 bpm Height: 5'10" Weight: 263 lbs 03/01/2014 Blood Pressure 1: 150/90 Code: 8480-6 Blood Pressure 2: 140/80 Code: 8480-6 BMI: 37.3 Code: 49040-5 Heart Rate 1: 56 bpm Height: 5'10" [...] Encounters Encounter Performer Loca tion Codes Date 51281 EST. PATIENT, LEVEL IV Diagnosis: Other acute sinusitis[ICD10: J01.80] Diagnosis: Other allergic rhinitis[ICD10: J30.89] Diagnosis: Cough[ICD10: R05] [facility] CPT-4: 14877 03/11/2018 [id number] EST. PATIENT, LEVEL IV Diagnosis: Other acute sinusitis[ICD10: J01.80] Diagnosis: Other allergic rhinitis[ICD10: J30.89] [facility] CPT-4: 35431 02/10/2018 ([id number]) 95037 EST. P ATIENT, LEVEL IV Diagnosis: Essential (primary) hypertension[ICD10: I10] Diagnosis: Mixed hyperlipidemia[ICD10: E78.2] Diagnosis: Nonrheumatic aortic (valve) stenosis[ICD10: I35.0] Trina [facility] MD[facility] CPT-4: 91489 12/23/2017 ([id number]) PER PM LIEN Velazquez EST PAT 65+ YR Diagnosis: Encounter for general adult medical examination with abnormal findings[ICD10: Z00.01] Trina Camacho MD, [facility] CPT-4: 84404 06/24/2017 ([id number]) Patient adm itted to the hospital from clinic (NO CHARGE) Diagnosis: [ICD9: ] Diagnosis: Essential (primary) hypertension[ICD10: I10] Diagnosis: Other allergic rhinitis[ICD10: J30.89] Diagnosis: Cough[ICD10: R05] Diagnosis: Mixed hyperlipidemia[ICD10: E78.2] Trina Camacho MD, [facility] CPT- 4: 50285J 06/24/2017 [id number] EST. PATIENT, LEVEL IV Diagnosis: Other acute sinusitis[ICD10: J01.80] Diagnosis: Other allergic rhinitis[ICD10: J30.89] Lulu Camacho MD, [facility] CPT-4: 29581 03/17/2017 ([id number]) 40497 EST. P ATIENT, LEVEL IV Diagnosis: Essential (primary) hypertension[ICD10: I10] Diagnosis: Mixed hyperlipidemia[ICD10: E78.2] Trina Camacho MD, [facility] CPT- 4: 74120 12/24/2016 90137 EST. PATIENT, LEVEL IV Diagnosis: Acute bronchitis due to other specified organisms[ICD10: J20.8] Lulu Camacho MD, [facility] CPT-4: 95427 11/18/2016 ([id number]) 12699 EST. P ATIENT, LEVEL III Diagnosis: Essential (primary) hypertension[ICD10: I10] Trina Camacho MD, [facility] CPT-4: 87915 06/24/2016 ([id number]) 43020 EST. P ATIENT, LEVEL III Diagnosis: Essential (primary) hypertension[ICD10: I10] Diagnosis: Cough[ICD10: R05] Diagnosis: Candidal stomatitis[ICD10: B37.0] Trina Camacho MD, [facility] CPT-4: 54571 05/20/2016 ([id number]) Patient adm itted to the hospital from clinic (NO CHARGE) Diagnosis: Pneumonia, unspecified organism[ICD10: J18.9] Diagnosis: Cough[ICD10: R05] Trina Camacho MD, [facility] CPT-4: 82375U 05/09/2016 38563 EST. PATIENT, LEVEL III Diagnosis: Acute laryngopharyngitis[ICD10: J06.0] Diagnosis: Cough[ICD10: R05] Lulu Camacho MD, [facility] CPT-4: 44917 04/28/2016 ([id number]) 34389 EST. P ATIENT, LEVEL III Diagnosis: Cough[ICD10: R05] Diagnosis: Essential (primary) hypertension[ICD10: I10] Susu Camacho MD, [facility] CPT-4: 22388 04/04/2016 ([id number]) 16599 EST. P ATIENT, LEVEL III Diagnosis: Cough[ICD10: R05] Diagnosis: Pneumonia, unspecified organism[ICD10: J18.9] Susu Camacho MD, [facility] CPT-4: 55691 03/28/2016 52359 EST. PATIENT, LEVEL IV Diagnosis: Other allergic rhinitis[ICD10: J30.89] Diagnosis: Other acute sinusitis[ICD10: J01.80] Lulu Camacho MD, [facility] CPT- 4: 28378 02/13/2016 22133 EST. PATIENT, LEVEL IV Diagnosis: Acute bronchitis due to other specified organisms[ICD10: J20.8] Diagnosis: Other acute sinusitis[ICD10: J01.80] Diagnosis: Other allergic rhinitis[ICD10: J30.89] Lulu Camacho MD, [facility] CPT-4: 24870 08/02/2015 ([id number]) 86568 EST. P ATIENT, LEVEL IV Diagnosis: Essential (primary) hypertension[ICD10: I10] Diagnosis: Mixed hyperlipidemia[ICD10: E78.2] Diagnosis: Impaired fasting glucose[ICD10: R73.01] Susu Camacho MD, [facility] CPT-4: 20325 06/22/2015 ([id number]) 60207 EST. P ATIENT, LEVEL IV Diagnosis: ESSENTIAL HYPERTENSION[ICD9: 401.9] Diagnosis: Aortic stenosis[ICD9: 424.1] Diagnosis: Hyperlipidemia[ICD9: 272.4] Trina Camacho MD, [facility] CPT-4: 03846 03/20/2014 ([id number]) OFFICE [facility] 4 Diagnosis: ESSENTIAL HYPERTENSION[ICD9: 401.9] Diagnosis: DIABETES TYPE II[ICD9: 250.00] Diagnosis: Heart murmur[ICD9: 785.2] Diagnosis: Snoring[ICD9: 786.09] Diagnosis: Sleep-disordered breathing[ICD9: 780.59] Trina Camacho MD, Eric CPT-4: 81223 03/01/2014 Plan of Care Planned Activity Notes [...] allergy spray. 02/10/2018 Appointment: Lulu Mann WPtel: [address] [place], [place] [phone] (15 min) Moderate 02/10/2018 Patient Education: Patient [...] increased activity 12/23/2017 Appointment: Trina Camacho WPtel: [address] [place], [place] [phone] (15 min) Moderate 12/23/2017 Patient Education: Patient [...] inhales bid. 06/24/2017 Appointment: Trina Camacho WPtel: [address] [place], [place] [phone] (15 min) Moderate 06/24/2017 Patient Education: Patient [...] spray. 03/17/2017 Appointment: Lulu Mann WPtel: [phone] [phone] (15 min) Moderate 03/17/2017 Patient Education: [...] medications. 12/24/2016 Appointment: Trina Camacho WPtel: [phone] [phone] (15 min) Moderate 12/24/2016 Patient Education: [...] worsen. 11/18/2016 Appointment: Lulu Mann WPtel: [phone] [phone] (30 min) Complex 11/18/2016 Patient Education: [...] at home. 06/24/2016 Appointment: Trina Camacho WPtel: [phone] [phone] (15 min) Moderate 06/24/2016 Patient Education: [...] swallow 05/20/2016 Appointment: Trina Camacho WPtel: [phone] [phone] (15 min) Moderate 05/20/2016 Patient Education: Patient Medication Summary Completed 05/20/2016 Patient Education: Obesity Completed 05/20/2016 Patient Education: Hypertension Completed 05/20/2016 Visit Plan: PNEUMONIA - PT IS CLINI WESLY SYMPTOMATIC FOR PNEUMONIA - A CHEST XRAY, SPUTUM C AND S, BLOOD CULTURES, AND LABS HAVE BEEN ORDERED IN ORDER TO FURTHER WORK-UP THE ACUTE ILLNESS. 05/09/2016 Appointment: Susu Mills WPtel: [address] [place], [place] [phone] (15 min) Moderate 05/09/2016 Patient Education: Patient Medication Summary Completed 05/09/2016 Visit Plan: URI - Pt advised to inc rease fluids, vitamin C. Discussed natural and expected course of this diagnosis and need to alert me if symptoms do not follow expected course, or if any worse. RX sent to patient's pharmacy. 04/28/2016 Appointment: Lulu Mann WPtel: [address] [place], [place] [id number] (15 min) Moderate [...] verbalized understanding. 04/04/2016 Appointment: Susu Mills WPtel: [address] [place], [place] [phone] (10 min) Simple 04/04/2016 Patient Education: Patient Medication Summary Completed 04/04/2016 Patient Education: Hypertension Completed 04/04/2016 Visit Plan: Pneumonia-cough- improv ing-finish abx and call if symptoms do not completely resolved-patient verbalized understanding of plan. 03/28/2016 Appointment: Susu Mills WPtel: [address] [place], [place] [phone] (30 min) Complex 03/28/2016 Patient Education: Patient Medication Summary Completed 03/28/2016 Patient Education: Obesity Completed 03/28/2016 Visit Plan: Cough-kenalog injection today-start abx as directed-f/u , sooner if needed 03/24/2016 Appointment: Susu Mills WPtel: [address] [place], [place] [phone] (10 min) Simple 03/24/2016 Patient Education: Patient [...] show improvement. 02/13/2016 Appointment: Susu Mills WPtel: [facility] [place] [phone] (15 min) Moderate 02/13/2016 Patient Education: Patient [...] spray. 08/02/2015 Appointment: Lulu Mann WPtel: [phone] [phone] (15 min) Moderate 08/02/2015 Patient Education: Patient [...] Medication Summary Completed 07/31/2014 Patient Education: [facility] - Saving [employer] - Lisinopril - 18+ - Dynamic Portal ID Completed 07/31/2014 Visit Plan: NIL-gsryjaei-opfud slig htly elevated-patient tolerated lisinopril 5mg BID well, did not tolerate 10mg daily in the past. Recommend he monitor blood pressure and pulse at home and bring in readings for review. Aortic Stenosis-recommend stress test-refer to Dr Avilez for evaluation Hyperlipidemia-continue statin medication-increase exercise and weight loss-low fat diet. Repeat labs in 3-6 months-Patient verbalized understanding of plan. 03/20/2014 Visit Plan: CAO-gercbqdr-bniib slig htly elevated-patient tolerated lisinopril 5mg BID well, did not tolerate 10mg daily in the past. Recommend he monitor blood pressure and pulse at home and bring in readings for review. Aortic Stenosis-recommend stress test-refer to Dr Avilez for evaluation Hyperlipidemia-continue statin medication-increase exercise and weight loss-low fat diet. Repeat labs in 3-6 months-Patient verbalized understanding of plan. Daytime ttzavojrwtv-nnjilfp-xslzgyr-refer for sleep study 03/20/2014 Appointment: Follow up 03/20/2014 Patient Education: Patient Medication Summary Completed 03/20/2014 Care Plan: Referral Order SNOMED-CT : [id number] Ordered 03/20/2014 Visit Plan: Hypertension - uncontro [...] physician. 03/01/2014 App[facility]ment: [facility] [phone] [id number] [place] [facility] 03/01/2014 Patient Education: Patient Medication Summary Completed 03/01/2014 Patient Education: Hypertension Completed 03/01/2014 Referral: Dr Avilez Referral Initiated Instructions Comment . DIP-xqnsxgvf-irrcl slightly elevated-patient tolerated lisinopril 5mg BID well, did not tolerate 10mg daily in the past. Recommend he monitor blood pressure and pulse at home and bring in readings for review. Aortic Stenosis-recommend stress test-refer to Dr Avilez for evaluation Hyperlipidemia-continue statin medication-increase exercise and weight loss-low fat diet. Repeat labs in 3-6 months-Patient verbalized understanding of plan. . BTZ-vxzxdefb-cvqnj slightly elevated-patient tolerated lisinopril 5mg BID well, did not tolerate 10mg daily in the past. Recommend he monitor blood pressure and pulse at home and bring in readings for review. Aortic Stenosis-recommend stress test-refer to Dr Avilez for evaluation Hyperlipidemia-continue statin medication-increase exercise and weight loss-low fat diet. Repeat labs in 3-6 months-Patient verbalized understanding of plan. Daytime hisngdfxxlb-hwxnzhx-hgqbblc-refer for sleep study . Sinusitis - Pt [...] in the nasal steroid allergy spray. . Allergies - chroni c - recommended [...] with dietary changes and increased activity . Hypertension - wel l controlled - [...]
--- OUTSIDE RECORDS SUMMARY | 2019-03-16 12:44 | XMS REPORT | CCD ---
Author Author Farshda Camacho Organization Trina Camacho MD, [facility] Address [address] [place] [address] Phone Care Team Providers Care Engraver Set Up Operator Name Role Phone PP Unavailable CCM Unavailable Summary Purpose Interface Exchange Insurance Providers Payer name Policy type / Coverage type Covered libertarian ID Effective Begin Date Effective End Date WPS Medicare Part B Medicare Part B [id number] Unknown Cigna Medicare Part B 80 [id number] Unknown Family history Brother Diagnosis Age At Onset lung cancer Unknown Alcoholism Unknown Mother Diagnosis Age At Onset Cancer Unknown Pancratic cancer Unknown Arthritis Unknown Father Diagnosis Age At Onset Alcoholism Unknown Social History Social History Element Codes Description Effective Dates Marital status Unknown M alberto Rice 03/01/2014 Number of children Unknown 3 and 3 step 03/01/[address]: 8911851 Former smoker quit 199603/01/2014 Allergies, Adverse Reactions, [...] Codes Condition Status Onset Date Resolved Date Other acute sinusitis ICD-9: 461.8 ICD-10: J01.80 [...] 9: 112.0 ICD-10: B37.0 Resolved 05/20/2016 Unknown Cough ICD-9: 786.2 ICD-10: R05 Resolved 04/03/2016 Unknown Pneumonia, unspecifi ed organism ICD-9: 486 [...] Condition Codes Effectiv e Dates Condition Status Other acute sinusitis ICD-9: 461.8 ICD-10: J01.80 [...] ICD- 9: 112.0 ICD-10: B37.0 05/20/2016 Resolved Cough ICD-9: 786.2 ICD-10: R05 04/03/2016 Resolved Pneumonia, unspecifi ed organism ICD-9: 486 [...] Date Stop Date Sta tus Fill Instructions Keflex 500 mg capsule RxNorm: 550706 1 Capsule(s) PO TID 02/10/2018 02/19/2018 Active Symbicort 160 mcg-4. 5 mcg/actuation HFA aerosol inhaler RxNorm: 7777625 2 Puff(s) INH BID 02/10/2018 No Stop Date Active prednisone 10 mg tablet RxNorm: 547796 Tablet(s) PO UD start on 11/1902/10/2018 No Stop Date Active 60,50,40,30,20,10 Advair Diskus 250 mc g-50 mcg/dose powder for inhalation RxNorm: 1551916 1 Puff(s) INH BID 12/29/2017 No Stop Date Active Zithromax Z-Poncho 250 mg tablet RxNorm: 445340 1 Tablet(s) PO UD 12/29/2017 01/02/2018 Inactive zpack Tessalon Perles 100 mg capsule RxNorm: 017001 1-2 Capsule(s) PO TID as needed 12/29/2017 01/02/2018 In active allopurinol 300 mg t ablet RxNorm: 296691 Tablet(s) TAKE ONE TA BLET BY MOUTH ONCE DAILY 12/10/2017 No Stop Date Active Kenalog 40 mg/mL [employer]ell pension for injection RxNorm: 2461343 1.5 Milliliter(s) In j 12/03/2017 12/03/2017 In active allopurinol 300 mg t ablet RxNorm: 507642 TAKE ONE TABLET BY MO UTH ONCE DAILY 09/08/2017 12/09/2017 In active allopurinol 300 mg t ablet RxNorm: 936036 TAKE ONE TABLET BY MO UTH ONCE DAILY 06/15/2017 09/07/2017 In active Keflex 500 mg capsule RxNorm: 382087 1 Capsule(s) PO TID 05/04/2017 05/13/2017 Inactive Kenalog 40 mg/mL russell pension for injection RxNorm: 8144801 1 Milliliter(s) Inj 03/17/2017 03/17/2017 In active Keflex 500 mg capsule RxNorm: 628446 1 Capsule(s) PO TID 03/13/2017 03/12/2017 Inactive Keflex 500 mg capsule RxNorm: 649381 1 Capsule(s) PO TID 03/13/2017 03/22/2017 Inactive prednisone 10 mg tablet RxNorm: 986255 Tablet(s) PO UD start on 11/1911/18/2016 12/23/2016 Inactive 60,50,40,30,20,10 Advair Diskus 250 mc g-50 mcg/dose powder for inhalation RxNorm: 5450472 1 Puff(s) INH BID 11/18/2016 12/28/2017 Inactive doxycycline hyclate 100 mg capsule RxNorm: 4425764 1 Capsule(s) PO BID 11/18/2016 11/27/2016 In active Kenalog 40 mg/mL russell pension for injection RxNorm: 5632850 Milliliter(s) Inj 11/18/2016 11/18/2016 In active nystatin 100,000 uni t/mL oral suspension RxNorm: 470260 5 Milliliter(s) PO QI D 05/20/2016 05/29/2016 In active allopurinol 300 mg t ablet RxNorm: 508014 TAKE ONE TABLET BY [facility] ONCE DAILY 05/11/2016 05/05/2017 In active Tessalon Perles 100 mg capsule RxNorm: 245138 1-2 Capsule(s) PO TID as needed 04/29/2016 05/03/2016 In active Prilosec OTC 20 mg t ablet,delayed release RxNorm: 424702 Tablet(s) PO 04/28/2016 11/16/2016 In active doxycycline hyclate 100 mg capsule RxNorm: 3896395 1 Capsule(s) PO BID 04/28/2016 05/07/2016 In active Tamiflu 75 mg capsule RxNorm: 102203 1 Capsule(s) PO BID 04/07/2016 04/11/2016 Inactive Tamiflu 75 mg capsule RxNorm: 172285 1 Capsule(s) PO BID 04/07/2016 04/06/2016 Inactive prednisone 20 mg tablet RxNorm: 463970 1 Tablet(s) PO BID 04/04/2016 04/08/2016 Inactive Kenalog 40 mg/mL russell pension for injection RxNorm: 8291562 1 Milliliter(s) Inj 03/24/2016 03/24/2016 In active cefdinir 300 mg capsule RxNorm: 705331 1 Capsule(s) PO BID 03/24/2016 03/30/2016 Inactive Zithromax Z-Poncho 250 mg tablet RxNorm: 436155 1 Tablet(s) PO UD 03/24/2016 03/28/2016 Inactive zpack cefdinir 300 mg capsule RxNorm: 930748 1 Capsule(s) PO BID 03/24/2016 03/23/2016 Inactive Flonase Allergy Reli ef 50 mcg/actuation nasal spray,suspension RxNorm: 1578709 1 [place] NASAL BID 02/13/2016 No Stop Date Active doxycycline hyclate 100 mg capsule RxNorm: 3227326 1 Capsule(s) PO BID 02/13/2016 02/19/2016 In active lisinopril 5 mg tablet RxNorm: 073223 1 Tablet(s) PO BID TAKE ONE TABLET BY MO UTH TWICE DAILY 11/20/2015 05/12/2016 Inactive hold until patient calls fo r refill doxycycline hyclate 100 mg capsule RxNorm: 8394973 1 Capsule(s) PO BID 08/02/2015 08/08/2015 In active Kenalog 40 mg/mL russell pension for injection RxNorm: 0624574 Milliliter(s) Inj 08/02/2015 08/02/2015 In active lisinopril 5 mg tablet RxNorm: 430599 TAKE ONE TABLET BY MOUTH TWICE DAILY 06/11/2015 11/19/2015 In active allopurinol 300 mg t ablet RxNorm: 088144 1 Tablet(s) PO daily 05/08/2015 05/01/2016 Inactive lisinopril 5 mg tablet RxNorm: 764307 1 Tablet(s) PO BID 01/30/2015 05/29/2015 Inactive [AttnRPh: Saving apply/adjudicate RxGRP:SG20 RxBIN:[id number] RxPCN: ID#:[id number]] Zithromax Z-Poncho 250 mg tablet RxNorm: 077121 1 Tablet(s) PO UD 01/10/2015 03/23/2016 Inactive zpack allopurinol 300 mg t ablet RxNorm: 557703 1 Tablet(s) PO daily 10/31/2014 04/28/2015 Inactive lisinopril 5 mg tablet RxNorm: 805354 1 Tablet(s) PO BID 07/31/2014 11/27/2014 Inactive [AttnRPh: Saving apply/adjudicate RxGRP:SG20 RxBIN:[id number] RxPCN: ID#:[id number]] allopurinol 300 mg t ablet RxNorm: 871288 1 Tablet(s) PO daily 05/17/2014 10/30/2014 Inactive lisinopril 5 mg tablet RxNorm: 845096 1 Tablet(s) PO BID 03/01/2014 06/28/2014 Inactive [SAVINGS FOR UNINSURED PATIENTS -- BIN:[id number], PCN: [id number], Group: [id number], ID# [id number], Process claim through [employer], for questions: . THIS IS NOT INSURANCE.] Fish Oil 1,000 mg ca psule RxNorm: 3 Capsule(s) PO daily No Start Date Active B Complex 1 oral RxNorm: 80745 oral No Start Date Active Vitamin D3 1,000 uni t capsule RxNorm: 902889 2 Capsule(s) PO daily No Start Date Active Zyrtec 10 mg capsule RxNorm: 9947457 1 Capsule(s) PO daily No Start Date Active fenofibrate nanocrys tallized 48 mg tablet RxNorm: 101168 1 Tablet(s) PO daily No Start Date Active metoprolol tartrate 25 mg tablet RxNorm: 765630 1 Tablet(s) PO daily No Start Date Active multivitamin tablet RxNorm: 1 Tablet(s) PO daily No Start Date Active pravastatin 40 mg ta blet RxNorm: 774434 1 Tablet(s) PO daily No Start Date Active Tessalon Perles 100 mg capsule RxNorm: 165859 1-2 Capsule(s) PO TID as needed No Start Date 04/28/2016 Inactive allopurinol 300 mg t ablet RxNorm: 059574 1 Tablet(s) PO daily No Start Date 05/16/2014 Inactive metformin 500 mg tablet RxNorm: 918554 1 Tablet(s) PO BID No Start Date 02/14/2014 Inactive pioglitazone 15 mg t ablet RxNorm: 641660 1 Tablet(s) PO daily No Start Date 07/30/2014 Inactive lisinopril 5 mg tablet RxNorm: 444954 1 Tablet(s) PO daily No Start Date 02/28/2014 Inactive losartan 25 mg tablet RxNorm: 598515 1/2 Tablet(s) PO daily No Start Date 01/12/2018 Inactive Zithromax Z-Poncho 250 mg tablet RxNorm: 671686 1 Tablet(s) PO UD No Start Date 01/09/2015 Inactive zpack Medication Administered Medication Codes Instruc tions Start Date Status Kenalog 40 mg/mL suspension for injection RxNorm: 7228600 1.5Milliliter 12/03/2017 No longer Active Kenalog 40 mg/mL suspension for injection RxNorm: 8633638 1Milliliter 03/17/2017 N o longer Active Kenalog 40 mg/mL suspension for injection RxNorm: 3670620 Milliliter 11/18/2016 No longer Active Kenalog 40 mg/mL suspension for injection RxNorm: 2668869 1Milliliter 03/24/2016 N o longer Active Kenalog 40 mg/mL suspension for injection RxNorm: 3857967 Milliliter 08/02/2015 No longer Active Immunizations Vaccine Codes Date Status Influenza CVX: 141 12/18 completed Influenza CVX: 141 12/14 completed Pneumococcal CVX: 33 03/2012 completed Zoster CVX: 121 11/15/19 13 completed Assessments Condition Codes Effectiv e Dates Other acute sinusitis ICD-10: J01.80 ICD-9: 461.8 02/10/2018 Other allergic rhinitis ICD-10: J30. 89 ICD-9: 477.8 02/10/2018 Encounter for general adult medical exam ination with abnormal findings ICD-10: Z00.01 ICD-9: V70.0 01/13/2018 Nonrheumatic aortic (valve) stenosis ICD-10: I35.0 ICD-9: 424.1 12/23/2017 Mixed hyperlipidemia ICD-10: E78.2 ICD-9: 272.4 12/23/2017 Essential (primary) hypertension ICD -10: I10 ICD-9: 401.1 12/23/2017 Cough ICD-10: R05 ICD-9: 786.2 06/24/2017 Acute bronchitis due to other specified organisms [...] For Visit Effective Dates Notes sinus congestion 02/10/2018 Annual Medicare Wellness Exam [...] Item Item Code Result Date Comp Metabolic Hle298 NA 136 mEq/L 12/22/2017 Comp Metabolic Dpq419 K 4.2 mEq/L 12/22/2017 Comp Metabolic Tqu055 CL 105 mEq/L 12/22/2017 Comp Metabolic Vuo127 CO2 30.0 mEq/L 12/22/2017 Comp Metabolic Hxt459 AN ION GAP 5 12/22/2017 Comp Metabolic Kij287 GL UCOSE 85 mg/dL 12/22/2017 Comp Metabolic Vgk660 Cr eat 1.2 mg/dL 12/22/2017 Comp Metabolic Qob137 eG FR 62 ml/min/1.73m2 12/22 Comp Metabolic Ncz588 BUN 17 mg/dL 12/22/2017 Comp Metabolic Xtb504 B/ C Ratio 13.9 Ratio 12/22/2017 Comp Metabolic Eqi927 CA LCIUM 9.3 mg/dL 12/22/2017 Comp Metabolic Tob005 AL K PHOS 78 U/L 12/22/2017 Comp Metabolic Bja974 T(SGOT) 24 U/L 12/22/2017 Comp Metabolic Pdo892 AL T(SGPT) 28 U/L 12/22/2017 Comp Metabolic Vsq962 BI LI T 0.5 mg/dL 12/22/2017 Comp Metabolic Lyi752 AL BUMIN 4.0 g/dL 12/22/2017 Comp Metabolic Mjw359 TP RO 6.6 g/dL 12/22/2017 Comp Metabolic Cvd460 GL OB 2.6 g/dL 12/22/2017 Comp Metabolic Oaq080 A/ G Ratio 1.6 Ratio 12/22/2017 Comp Metabolic Pfu806 Os mo 273 mOsmo 12/22/2017 Cbc With [...] 21.6 % 12/22/2017 Cbc With Differential Ord2 [place]% 6.3 % 12/22/2017 Cbc With Differential Ord2 [...] 1.92 K/ul 12/22/2017 Cbc With Differential Ord2 [place] ABS# 0.6 K/ul 12/22/2017 Cbc With Differential Ord2 Eos ABS# 0.3 K/ul 12/22/2017 Cbc With Differential Ord2 Baso ABS# 0.0 K/ul 12/22/2017 Comp Metabolic Cht153 NA 135 mEq/L 06/22/2017 Comp Metabolic Tyc760 K 4.2 mEq/L 06/22/2017 Comp Metabolic Nvo379 CL 101 mEq/L 06/22/2017 Comp Metabolic Bhr068 CO2 27.0 mEq/L 06/22/2017 Comp Metabolic Ash605 AN ION GAP 11 06/22/2017 Comp Metabolic Wxk872 GL UCOSE 89 mg/dL 06/22/2017 Comp Metabolic Inu921 Cr eat 1.5 mg/dL 06/22/2017 Comp Metabolic Vfg632 eG FR 51 ml/min/1.73m2 06/22 Comp Metabolic Ltd673 BUN 16 mg/dL 06/22/2017 Comp Metabolic Vkt685 B/ C Ratio 11.0 Ratio 06/22/2017 Comp Metabolic Ryg231 CA LCIUM 8.9 mg/dL 06/22/2017 Comp Metabolic Aji098 AL K PHOS 79 U/L 06/22/2017 Comp Metabolic Fck542 T(SGOT) 26 U/L 06/22/2017 Comp Metabolic Dhl735 AL T(SGPT) 26 U/L 06/22/2017 Comp Metabolic Bfs601 BI LI T 0.4 mg/dL 06/22/2017 Comp Metabolic Cel725 AL BUMIN 4.1 g/dL 06/22/2017 Comp Metabolic Hto568 TP RO 6.9 g/dL 06/22/2017 Comp Metabolic Eyo877 GL OB 2.8 g/dL 06/22/2017 Comp Metabolic Yii700 A/ G Ratio 1.5 Ratio 06/22/2017 Comp Metabolic Hya132 Os mo 271 mOsmo 06/22/2017 Cbc With [...] 32.6 pg 06/22/2017 Cbc With Differential Ord2 [place]% 7.9 % 06/22/2017 Cbc With Differential Ord2 Eos% 3.3 % 06/22/2017 Cbc With Differential Ord2 MCHC 34.0 pg 06/22/2017 Cbc With Differential Ord2 Baso% 0.2 % 06/22/2017 Cbc With Differential Ord2 PLT 155 K/ul 06/22/2017 Cbc With Differential Ord2 Neut ABS# 6.35 K/ul 06/22/2017 Cbc With Differential Ord2 RDW 13.8 % 06/22/2017 Cbc With Differential Ord2 Lymph ABS# 2.14 K/ul 06/22/2017 Cbc With Differential Ord2 [place] ABS# 0.8 K/ul 06/22/2017 Cbc With Differential [...] 25.2 % 12/25/2015 Cbc With Differential Ord2 [place]% 7.6 % 12/25/2015 Cbc With Differential Ord2 [...] 1.86 K/ul 12/25/2015 Cbc With Differential Ord2 [place] ABS# 0.6 K/ul 12/25/2015 Cbc With Differential Ord2 Eos ABS# 0.2 K/ul 12/25/2015 Cbc With Differential Ord2 Baso ABS# 0.1 K/ul 12/25/2015 Comp Metabolic Jka814 NA 136 mEq/L 12/25/2015 Comp Metabolic Wqz452 K 4.2 mEq/L 12/25/2015 Comp Metabolic Vsx080 CL 104 mEq/L 12/25/2015 Comp Metabolic Gbg844 CO2 26.0 mEq/L 12/25/2015 Comp Metabolic Hee736 AN ION GAP 10 12/25/2015 Comp Metabolic Cre323 GL UCOSE 104 mg/dL 12/25/2015 Comp Metabolic Qyd645 Cr eat 1.3 mg/dL 12/25/2015 Comp Metabolic Lwb357 eG FR 59 ml/min/1.73m2 12/24 Comp Metabolic Hmx640 BUN 23 mg/dL 12/25/2015 Comp Metabolic Rid437 B/ C Ratio 18.0 Ratio 12/25/2015 Comp Metabolic Pdb923 CA LCIUM 9.1 mg/dL 12/25/2015 Comp Metabolic Fde932 AL K PHOS 76 U/L 12/25/2015 Comp Metabolic Zba068 T(SGOT) 30 U/L 12/25/2015 Comp Metabolic Vvp498 AL T(SGPT) 28 U/L 12/25/2015 Comp Metabolic Yxk558 BI LI T 0.3 mg/dL 12/25/2015 Comp Metabolic Ehd371 AL BUMIN 4.0 g/dL 12/25/2015 Comp Metabolic Wgz471 TP RO 6.6 g/dL 12/25/2015 Comp Metabolic Ugh983 GL OB 2.6 g/dL 12/25/2015 Comp Metabolic Hqz896 A/ G Ratio 1.5 Ratio 12/25/2015 Comp Metabolic Cpq422 Os mo 276 mOsmo 12/25/2015 Cbc With Differential Ord2 WBC 9.40 K/ul 06/25/2015 Cbc With Differential Ord2 RBC 4.13 M/ul 06/25/2015 Cbc With Differential Ord2 HGB 13.4 g/dl 06/25/2015 Cbc With Differential Ord2 HCT 39.3 % 06/25/2015 Cbc With Differential Ord2 Neut% 67.9 % 06/25/2015 Cbc With Differential Ord2 Lymph% 23.2 % 06/25/2015 Cbc With Differential Ord2 MCV 95.2 fl 06/25/2015 Cbc With Differential Ord2 MCH 32.4 pg 06/25/2015 Cbc With Differential Ord2 [place]% 7.1 % 06/25/2015 Cbc With Differential Ord2 [...] 2.18 K/ul 06/25/2015 Cbc With Differential Ord2 [place] ABS# 0.7 K/ul 06/25/2015 Cbc With Differential Ord2 Eos ABS# 0.2 K/ul 06/25/2015 Cbc With Differential Ord2 Baso ABS# 0.0 K/ul 06/25/2015 Cbc With Differential Ord2 New Analyzer Notice Please note new ref ranges s tarting 03-28-2015 due to implemntation of new five part differential hematolgy analyzer. 06/25/2015 %Hba1C Nmi099 % HbA1c 57820-4 6.1 % 06/25/2015 %Hba1C Igt883 Gluc Ave 128 mg/dL 06/25/2015 Comp Metabolic Zqy923 NA 135 mEq/L 06/25/2015 Comp Metabolic Icj588 K 4.3 mEq/L 06/25/2015 Comp Metabolic Qqh829 CL 102 mEq/L 06/25/2015 Comp Metabolic Kev442 CO2 26.0 mEq/L 06/25/2015 Comp Metabolic Qbc410 AN ION GAP 11 06/25/2015 Comp Metabolic Fne360 GL UCOSE 81 mg/dL 06/25/2015 Comp Metabolic Kxy453 Cr eat 1.5 mg/dL 06/25/2015 Comp Metabolic Jnw264 eG FR 49 ml/min/1.73m2 06/24 Comp Metabolic Ukp592 BUN 20 mg/dL 06/25/2015 Comp Metabolic Lxr229 B/ C Ratio 13.2 Ratio 06/25/2015 Comp Metabolic Gxd363 CA LCIUM 9.5 mg/dL 06/25/2015 Comp Metabolic Wte247 AL K PHOS 65 U/L 06/25/2015 Comp Metabolic Eoo614 T(SGOT) 25 U/L 06/25/2015 Comp Metabolic Tzg034 AL T(SGPT) 29 U/L 06/25/2015 Comp Metabolic Pzq939 BI LI T 0.4 mg/dL 06/25/2015 Comp Metabolic Cof288 AL BUMIN 4.4 g/dL 06/25/2015 Comp Metabolic Dnu975 TP RO 7.3 g/dL 06/25/2015 Comp Metabolic Ttr555 GL OB 3.0 g/dL 06/25/2015 Comp Metabolic Ude728 A/ G Ratio 1.5 Ratio 06/25/2015 Comp Metabolic Mbk576 Os mo 272 mOsmo 06/25/2015 Tsh Ord6 hTSH II 3.03 uIU/mL 06/25/2015 Lipid Ord30 CHOL 150 mg/dL 06/22/2015 Lipid Ord30 HDL 34.0 mg/dl 06/22/2015 Lipid Ord30 TRIG 149 mg/dL 06/22/2015 Lipid Ord30 LDL 86 mg/dL 06/22/2015 Lipid Ord30 C/HDL 4.4 Ratio 06/22/2015 Hepatic Udq008 ALBUMIN 4.3 g/dL 06/22/2015 Hepatic Mcn063 TPRO 7.0 g/dL 06/22/2015 Hepatic Npx449 GLOB 2.8 g/dL 06/22/2015 Hepatic Pqx667 A/G Ratio 1.5 Ratio 06/22/2015 Hepatic Slr768 ALK PHOS 65 U/L 06/22/2015 Hepatic Ftg456 ALT(SGPT) 33 U/L 06/22/2015 Hepatic Yeg583 AST(SGOT) 28 U/L 06/22/2015 Hepatic Eie704 BILI T 0.5 mg/dL 06/22/2015 Hepatic Rmv090 BILI D 0.1 mg/dL 06/22/2015 Hepatic Osg990 BILI I 0.4 mg/dL 06/22/2015 Review of Systems System Result Effective Dates Constitutional recent illness 02/10/2018 Constitutional No chills [...] Respiratory No pedal edema 05/20/2016 Respiratory snoring 03/0 09/2016 Respiratory No wheezing 05/20/2016 Gastrointestinal No [...] atraumatic 03/01/2014 None Procedures Procedure Codes Date PPPS, SUBSEQ VISIT CPT- 4: G0439 01/13/2018 TRIAMCINOLONE ACET I [place] NOS CPT-4: J3301 12/03/2017 THER/PROPH/DIAG INJ SC/IM CPT-4: 30627 12/03/2017 TRIAMCINOLONE ACET I [place] NOS CPT-4: J3301 06/24/2017 TRIAMCINOLONE ACET I [place] NOS CPT-4: J3301 03/17/2017 TRIAMCINOLONE ACET I [place] NOS CPT-4: J3301 11/18/2016 TRIAMCINOLONE ACET I [place] NOS CPT-4: J3301 03/24/2016 THER/PROPH/DIAG INJ SC/IM CPT-4: 16704 03/24/2016 TRIAMCINOLONE ACET I [place] NOS CPT-4: J3301 08/02/2015 OCCULT BLOOD FECES CPT- 4: 32765 08/03/2014 INITIAL PREVENTIVE EXAM CPT-4: G0402 07/31/2014 Vital Signs Date Vital 02/10/2018 Blood Pressure 1: 140/72 Code: 8480-6 BMI: 33.7 Code: 21095-4 Heart Rate 1: 48 bpm Height: 5'10" SpO2: 95% Temperature: 36.6 (C ) / 97.8 (F) Weight: 235 lbs 01/13/2018 Blood Pressure 1: 118/66 Code: 8480-6 BMI: 33.3 Code: 43395-4 Heart Rate 1: 57 bpm Height: 5'10" SpO2: 98% Waist Measure (cm): 97 cm Weight: 232 lbs 12/23/2017 Blood Pressure 1: 120/62 Code: 8480-6 BMI: 33.7 Code: 58369-4 Heart Rate 1: 58 bpm Height: 5'10" SpO2: 96% Weight: 235 lbs 06/24/2017 Blood Pressure 1: 136/74 Code: 8480-6 BMI: 38.7 Code: 33221-0 Heart Rate 1: 75 bpm Height: 5'10" SpO2: 98% Weight: 270 lbs 03/17/2017 Blood Pressure 1: 138/78 Code: 8480-6 Heart Rate 1: 65 bpm SpO2: 97% Temperature: 36.6 (C ) / 97.8 (F) 12/24/2016 Blood Pressure 1: 134/78 Code: 8480-6 BMI: 37.2 Code: 57267-8 Heart Rate 1: 56 bpm Height: 5'10" SpO2: 98% Weight: 259 lbs 11/18/2016 Blood Pressure 1: 130/72 Code: 8480-6 BMI: 37.3 Code: 05401-5 Heart Rate 1: 70 bpm Height: 5'10" SpO2: 95% Weight: 260 lbs 06/24/2016 Blood Pressure 1: 134/80 Code: 8480-6 BMI: 38.3 Code: 16490-0 Heart Rate 1: 66 bpm Height: 5'10" SpO2: 98% Weight: 267 lbs 05/20/2016 Blood Pressure 1: 138/82 Code: 8480-6 BMI: 37.4 Code: 91577-6 Heart Rate 1: 65 bpm Height: 5'10" SpO2: 100% Weight: 261 lbs 05/09/2016 Blood Pressure 1: 154/78 Code: 8480-6 Heart Rate 1: 82 bpm Height: SpO2: 89% Temperature: 36.2 (C ) / 97.2 (F) Weight: 04/28/2016 Blood Pressure 1: 112/62 Code: 8480-6 BMI: 37.9 Code: 46650-2 Heart Rate 1: 73 bpm Height: 5'10" SpO2: 94% Temperature: 37.2 (C ) / 98.9 (F) Weight: 264 lbs 04/04/2016 Blood Pressure 1: 150/86 Code: 8480-6 Blood Pressure 1: 148/86 Code: 8480-6 Heart Rate 1: 71 bpm SpO2: 95% SpO2: 93% Temperature: 37.2 (C ) / 99.0 (F) 03/28/2016 Blood Pressure 1: 156/74 Code: 8480-6 BMI: 38.0 Code: 76561-8 Heart Rate 1: 84 bpm Height: 5'10" SpO2: 95% Weight: 265 lbs 02/13/2016 Blood Pressure 1: 118/62 Code: 8480-6 BMI: 39.2 Code: 85177-1 Heart Rate 1: 65 bpm Height: 5'10" SpO2: 96% Weight: 273 lbs 08/02/2015 Blood Pressure 1: 150/82 Code: 8480-6 BMI: 38.3 Code: 98833-9 Heart Rate 1: 75 bpm Height: 5'10" SpO2: 93% Weight: 267 lbs 06/22/2015 Blood Pressure 1: 138/80 Code: 8480-6 BMI: 38.7 Code: 13915-1 Heart Rate 1: 76 bpm Height: 5'10" SpO2: 96% Weight: 270 lbs 07/31/2014 Blood Pressure 1: 138/70 Code: 8480-6 BMI: 37.7 Code: 90701-9 Heart Rate 1: 70 bpm Height: 5'10" Respiratory Rate: 20 bpm Weight: 263 lbs 03/20/2014 Blood Pressure 1: 142/80 Code: 8480-6 BMI: 37.7 Code: 12774-4 Heart Rate 1: 64 bpm Height: 5'10" Weight: 263 lbs 03/01/2014 Blood Pressure 1: 150/90 Code: 8480-6 Blood Pressure 2: 140/80 Code: 8480-6 BMI: 37.3 Code: 29731-3 Heart Rate 1: 56 bpm Height: 5'10" Weight: 260 lbs Functional Status No Functional Status data History of Present Illness Symptom Name Status Resu lt Effective Date Notes sinus congestion Location frontal sinuses 02/10/2018 None [...] ago 04/28/2016 None [facility] 04/04/2016 None cough Location in the [...] Encounters Encounter Performer Loca tion Codes Date EST. PATIENT, LEVEL IV Diagnosis: Other acute sinusitis[ICD10: J01.80] Diagnosis: Other allergic rhinitis[ICD10: J30.89] Lulu Camacho MD, [facility] CPT-4: 25528 02/10/2018 ([id number]) 99775 EST. P ATIENT, LEVEL IV Diagnosis: Essential (primary) hypertension[ICD10: I10] Diagnosis: Mixed hyperlipidemia[ICD10: E78.2] Diagnosis: Nonrheumatic aortic (valve) stenosis[ICD10: I35.0] Trina Camacho MD, [facility] CPT-4: 11769 12/23/2017 ([id number]) PER PM REEVA L EST PAT 65+ YR Diagnosis: Encounter for general adult medical examination with abnormal findings[ICD10: Z00.01] Trina Camacho MD, [facility] CPT-4: 70017 06/24/2017 ([id number]) Patient adm itted to the hospital from clinic (NO CHARGE) Diagnosis: [ICD9: ] Diagnosis: Essential (primary) hypertension[ICD10: I10] Diagnosis: Other allergic rhinitis[ICD10: J30.89] Diagnosis: Cough[ICD10: R05] Diagnosis: Mixed hyperlipidemia[ICD10: E78.2] [facility] CPT- 4: 07581R 06/24/2017 [id number] EST. PATIENT, LEVEL IV Diagnosis: Other acute sinusitis[ICD10: J01.80] Diagnosis: Other allergic rhinitis[ICD10: J30.89] Lulu Camacho MD, [facility] CPT-4: 57342 03/17/2017 ([id number]) 29572 EST. P ATIENT, LEVEL IV Diagnosis: Essential (primary) hypertension[ICD10: I10] Diagnosis: Mixed hyperlipidemia[ICD10: E78.2] Trina Camacho MD, [facility] CPT- 4: 88353 12/24/2016 [id number] EST. PATIENT, LEVEL IV Diagnosis: Acute bronchitis due to other specified organisms[ICD10: J20.8] Lulu Camacho MD, [facility] CPT-4: 29489 11/18/2016 ([id number]) 26501 EST. P ATIENT, LEVEL III Diagnosis: Essential (primary) hypertension[ICD10: I10] Trina Camacho MD, [facility] CPT-4: 14823 06/24/2016 ([id number]) 67937 EST. P ATIENT, LEVEL III Diagnosis: Essential (primary) hypertension[ICD10: I10] Diagnosis: Cough[ICD10: R05] Diagnosis: Candidal stomatitis[ICD10: B37.0] Trina Camacho MD, [facility] CPT-4: 56364 05/20/2016 ([id number]) Patient adm itted to the hospital from clinic (NO CHARGE) Diagnosis: Pneumonia, unspecified organism[ICD10: J18.9] Diagnosis: Cough[ICD10: R05] Trina Camacho MD, [facility] CPT-4: 13840J 05/09/2016 [id number] EST. PATIENT, LEVEL III Diagnosis: Acute laryngopharyngitis[ICD10: J06.0] Diagnosis: Cough[ICD10: R05] Lulu Camacho MD, [facility] CPT-4: 15603 04/28/2016 ([id number]) [id number] EST. P ATIENT, LEVEL III Diagnosis: Cough[ICD10: R05] Diagnosis: Essential (primary) hypertension[ICD10: I10] Susu Camacho MD, [facility] CPT-4: 31965 04/04/2016 ([id number]) 17511 EST. P ATIENT, LEVEL III Diagnosis: Cough[ICD10: R05] Diagnosis: Pneumonia, unspecified organism[ICD10: J18.9] Susu Camacho MD, [facility] CPT-4: 07220 03/28/2016 [id number] EST. PATIENT, LEVEL IV Diagnosis: Other allergic rhinitis[ICD10: J30.89] Diagnosis: Other acute sinusitis[ICD10: J01.80] Lulu Camacho MD, [facility] CPT- 4: 00429 02/13/2016 [id number] EST. PATIENT, LEVEL IV Diagnosis: Acute bronchitis due to other specified organisms[ICD10: J20.8] Diagnosis: Other acute sinusitis[ICD10: J01.80] Diagnosis: Other allergic rhinitis[ICD10: J30.89] Lulu Camacho MD, [facility] CPT-4: 50611 08/02/2015 ([id number]) 21596 EST. P ATIENT, LEVEL IV Diagnosis: Essential (primary) hypertension[ICD10: I10] Diagnosis: Mixed hyperlipidemia[ICD10: E78.2] Diagnosis: Impaired fasting glucose[ICD10: R73.01] Susu Camacho MD, [facility] CPT-4: 50696 06/22/2015 ([id number]) 99780 EST. P ATIENT, LEVEL IV Diagnosis: ESSENTIAL HYPERTENSION[ICD9: 401.9] Diagnosis: Aortic stenosis[ICD9: 424.1] Diagnosis: Hyperlipidemia[ICD9: 272.4] Trina Camacho MD, [facility] CPT-4: 09671 03/20/2014 ([id number]) OFFICE VISI T, NEW - LEVEL 4 Diagnosis: ESSENTIAL HYPERTENSION[ICD9: 401.9] Diagnosis: DIABETES TYPE II[ICD9: 250.00] Diagnosis: Heart murmur[ICD9: 785.2] Diagnosis: Snoring[ICD9: 786.09] Diagnosis: Sleep-disordered breathing[ICD9: 780.59] Trina Camacho MD, C CPT-4: 21537 03/01/2014 Plan of Care Planned Activity Notes [...] in the nasal steroid allergy spray. 02/10/2018 Patient Education: Patient Medication Summary Completed [...] increased activity 12/23/2017 Appointment: Trina Camacho WPtel: [address] [place], [place] [id number] (15 min) Moderate 12/23/2017 Patient Education: Patient [...] inhales bid. 06/24/2017 Appointment: Trina Camacho WPtel: [address] [place], [place] [id number] (15 min) Moderate 06/24/2017 Patient Education: Patient [...] allergy spray. 03/17/2017 [facility]ment[facility] ([facility] min) Moderate 03/17/2017 Patient Education: [...] to medications. 12/24/2016 Appointment: Trina Camacho WPtel: [facility] (15 min) Moderate 12/24/2016 Patient Education: [...] acutely worsen. 11/18/2016 Appointment: Lulu Mann WPtel: [phone] (30 min) Complex 11/18/2016 Patient Education: [...] at home. 06/24/2016 Appointment: Trina Camacho WPtel: [facility] (15 min) Moderate 06/24/2016 Patient Education: [...] swallow 05/20/2016 Appointment: Trina Camacho WPtel: [phone] [facility] (15 min) Moderate 05/20/2016 Patient Education: Patient Medication Summary Completed 05/20/2016 Patient Education: Obesity Completed 05/20/2016 Patient Education: Hypertension Completed 05/20/2016 Visit Plan: PNEUMONIA - PT IS CLINI WESLY SYMPTOMATIC FOR PNEUMONIA - A CHEST XRAY, SPUTUM C AND S, BLOOD CULTURES, AND LABS HAVE BEEN ORDERED IN ORDER TO FURTHER WORK-UP THE ACUTE ILLNESS. 05/09/2016 Appointment: Susu Mills WPtel: [phone] (15 min) Moderate 05/09/2016 Patient Education: Patient Medication Summary Completed 05/09/2016 Visit Plan: URI - Pt advised to inc rease fluids, vitamin C. Discussed natural and expected course of this diagnosis and need to alert me if symptoms do not follow expected course, or if any worse. RX sent to patient's pharmacy. 04/28/2016 Appointment: Lulu Mann [facility]Ptel[facility] (15 min) Moderate 04/28/2016 Patient Education: [...] update. Patient verbalized understanding. 04/04/2016 Appointment: Susu Mlils WPtel: [phone] [place] (10 min) Simple 04/04/2016 Patient Education: Patient Medication Summary Completed 04/04/2016 Patient Education: Hypertension Completed 04/04/2016 Visit Plan: Pneumonia-cough- improv ing-finish abx and call if symptoms do not completely resolved-patient verbalized understanding of plan. 03/28/2016 Appointment: Susu Mills WPtel: [phone] [place] (30 min) Complex 03/28/2016 Patient Education: Patient Medication Summary Completed 03/28/2016 Patient Education: Obesity Completed 03/28/2016 Visit Plan: Cough-kenalog injection today-start abx as directed-f/u , sooner if needed 03/24/2016 Appointment: Susu Mills WPtel: [address] [place] [address] (10 min) Simple 03/24/2016 Patient Education: Patient [...] show improvement. 02/13/2016 Appointment: Susu Mills WPtel: [address] [place], [place] [id number] (15 min) Moderate 02/13/2016 Patient Education: Patient [...] 08/02/2015 Appointment: [phone] (15 min) Moderate 08/02/2015 Patient Education: [...] Patient Medication Summary Completed 07/31/2014 Patient Education: [facility] [place] - Saving [employer] - Lisinopril - 18+ - Dynamic Portal ID Completed 07/31/2014 Visit Plan: RBA-amotbesm-vythg slig htly elevated-patient tolerated lisinopril 5mg BID well, did not tolerate 10mg daily in the past. Recommend he monitor blood pressure and pulse at home and bring in readings for review. Aortic Stenosis-recommend stress test-refer to Dr Avilez for evaluation Hyperlipidemia-continue statin medication-increase exercise and weight loss-low fat diet. Repeat labs in 3-6 months-Patient verbalized understanding of plan. 03/20/2014 Visit Plan: QHR-tgmodvoe-xagrx slig htly elevated-patient tolerated lisinopril 5mg BID well, did not tolerate 10mg daily in the past. Recommend he monitor blood pressure and pulse at home and bring in readings for review. Aortic Stenosis-recommend stress test-refer to Dr Avilez for evaluation Hyperlipidemia-continue statin medication-increase exercise and weight loss-low fat diet. Repeat labs in 3-6 months-Patient verbalized understanding of plan. Daytime cyahnzjvllk-qdkropt-feggaxy-refer for sleep study 03/20/2014 Appointment: Follow up 03/20/2014 Patient Education: Patient Medication Summary Completed 03/20/2014 Care Plan: Referral Order SNOMED-CT : [id number] Ordered 03/20/2014 Visit Plan: Hypertension - uncontro [...] previous physician. 03/01/2014 Appointment: Trina Camacho WPtel: [facility] New Patient 03/01/2014 Patient Education: Patient Medication Summary Completed 03/01/2014 Patient Education: Hypertension Completed 03/01/2014 Referral: Dr Avilez Referral Initiated Instructions Comment . XAS-njpgnfre-itagd slightly elevated-patient tolerated lisinopril 5mg BID well, did not tolerate 10mg daily in the past. Recommend he monitor blood pressure and pulse at home and bring in readings for review. Aortic Stenosis-recommend stress test-refer to Dr Avilez for evaluation Hyperlipidemia-continue statin medication-increase exercise and weight loss-low fat diet. Repeat labs in 3-6 months-Patient verbalized understanding of plan. . PEM-ekuoadad-hdezs slightly elevated-patient tolerated lisinopril 5mg BID well, did not tolerate 10mg daily in the past. Recommend he monitor blood pressure and pulse at home and bring in readings for review. Aortic Stenosis-recommend stress test-refer to Dr Avilez for evaluation Hyperlipidemia-continue statin medication-increase exercise and weight loss-low fat diet. Repeat labs in 3-6 months-Patient verbalized understanding of plan. Daytime kexrozdchdq-mqtcaxq-ykrspzz-refer for sleep study . Sinusitis - Pt [...] - dulera inhaler two inhales bid. . HTN-no well contro lled-monitor over the [...] if symptoms acutely worsen. . Hypertension - unc ontrolled - the [...] his labs from his previous physician. . Hypertension - wel l controlled - [...] assure normal liver response to medications. . Pneumonia-cough- i mproving-finish abx and call if symptoms do not completely resolved-patient verbalized understanding of plan. . URI - [...] improved, or if symptoms acutely worsen. . Welcome to Medic[facility] e Exam - [...]
--- OUTSIDE RECORDS SUMMARY | 2019-03-16 12:45 | XMS REPORT | CCD ---
Author Author Farshad Camacho Organization Trina Camacho MD, [facility] Address [address] [place] [address] Phone Care Team Providers Care Regional Education Manager Name Role Phone PP Unavailable CCM Unavailable Summary Purpose Interface Exchange Insurance Providers Payer name Policy type / Coverage type Covered constitution party ID Effective Begin Date Effective End Date WPS Medicare Part B Medicare Part B [id number] Unknown Cigna Medicare Part B 80 [id number] Unknown Family history Brother Diagnosis Age At Onset lung cancer Unknown Alcoholism Unknown Mother Diagnosis Age At Onset Cancer Unknown Pancratic cancer Unknown Arthritis Unknown Father Diagnosis Age At Onset Alcoholism Unknown Social History Social History Element Codes Description Effective Dates Marital status Unknown M alberto Rice 03/01/2014 Number of children Unknown 3 and 3 step 03/01/[address]: 2980832 Former smoker quit 199603/01/2014 Allergies, Adverse Reactions, [...] Fill Instructions Keflex 500 mg capsule RxNorm: 803177 1 Capsule(s) PO TID 02/10/2018 02/19/2018 Active Symbicort 160 mcg-4. 5 mcg/actuation HFA aerosol inhaler RxNorm: 0094436 2 Puff(s) INH BID 02/10/2018 No Stop Date Active prednisone 10 mg tablet RxNorm: 592711 Tablet(s) PO UD start on 11/1902/10/2018 No Stop Date Active 60,50,40,30,20,10 Advair Diskus 250 mc g-50 mcg/dose powder for inhalation RxNorm: 5358383 1 Puff(s) INH BID 12/29/2017 No Stop Date Active Zithromax Z-Poncho 250 mg tablet RxNorm: 042651 1 Tablet(s) PO UD 12/29/2017 01/02/2018 Inactive zpack Tessalon Perles 100 mg capsule RxNorm: 386140 1-2 Capsule(s) PO TID as needed 12/29/2017 01/02/2018 In active allopurinol 300 mg t ablet RxNorm: 170980 Tablet(s) TAKE ONE TA BLET BY MOUTH ONCE DAILY 12/10/2017 No Stop Date Active Kenalog 40 mg/mL russell pension for injection RxNorm: 3660706 1.5 Milliliter(s) In j 12/03/2017 12/03/2017 In active allopurinol 300 mg t ablet RxNorm: 539695 TAKE ONE TABLET BY MO UTH ONCE DAILY 09/08/2017 12/09/2017 In active allopurinol 300 mg t ablet RxNorm: 487932 TAKE ONE TABLET BY MO UTH ONCE DAILY 06/15/2017 09/07/2017 In active Keflex 500 mg capsule RxNorm: 797405 1 Capsule(s) PO TID 05/04/2017 05/13/2017 Inactive Kenalog 40 mg/mL russell pension for injection RxNorm: 2580579 1 Milliliter(s) Inj 03/17/2017 03/17/2017 In active Keflex 500 mg capsule RxNorm: 898799 1 Capsule(s) PO TID 03/13/2017 03/12/2017 Inactive Keflex 500 mg capsule RxNorm: 249681 1 Capsule(s) PO TID 03/13/2017 03/22/2017 Inactive prednisone 10 mg tablet RxNorm: 879716 Tablet(s) PO UD start on 11/1911/18/2016 12/23/2016 Inactive 60,50,40,30,20,10 Advair Diskus 250 mc g-50 mcg/dose powder for inhalation RxNorm: 8187952 1 Puff(s) INH BID 11/18/2016 12/28/2017 Inactive doxycycline hyclate 100 mg capsule RxNorm: 3864324 1 Capsule(s) PO BID 11/18/2016 11/27/2016 In active Kenalog 40 mg/mL russell pension for injection RxNorm: 6032480 Milliliter(s) Inj 11/18/2016 11/18/2016 In active nystatin 100,000 uni t/mL oral suspension RxNorm: 003129 5 Milliliter(s) PO QI D 05/20/2016 05/29/2016 In active allopurinol 300 mg t ablet RxNorm: 498420 TAKE ONE TABLET BY [facility] ONCE DAILY 05/11/2016 05/05/2017 In active Tessalon Perles 100 mg capsule RxNorm: 180163 1-2 Capsule(s) PO TID as needed 04/29/2016 05/03/2016 In active Prilosec OTC 20 mg t ablet,delayed release RxNorm: 138410 Tablet(s) PO 04/28/2016 11/16/2016 In active doxycycline hyclate 100 mg capsule RxNorm: 5738267 1 Capsule(s) PO BID 04/28/2016 05/07/2016 In active Tamiflu 75 mg capsule RxNorm: 029047 1 Capsule(s) PO BID 04/07/2016 04/11/2016 Inactive Tamiflu 75 mg capsule RxNorm: 329164 1 Capsule(s) PO BID 04/07/2016 04/06/2016 Inactive prednisone 20 mg tablet RxNorm: 123618 1 Tablet(s) PO BID 04/04/2016 04/08/2016 Inactive Kenalog 40 mg/mL russell pension for injection RxNorm: 5625941 1 Milliliter(s) Inj 03/24/2016 03/24/2016 In active cefdinir 300 mg capsule RxNorm: 020715 1 Capsule(s) PO BID 03/24/2016 03/30/2016 Inactive Zithromax Z-Poncho 250 mg tablet RxNorm: 744871 1 Tablet(s) PO UD 03/24/2016 03/28/2016 Inactive zpack cefdinir 300 mg capsule RxNorm: 403445 1 Capsule(s) PO BID 03/24/2016 03/23/2016 Inactive Flonase Allergy Reli ef 50 mcg/actuation nasal spray,suspension RxNorm: 2723457 1 [place] NASAL BID 02/13/2016 No Stop Date Active doxycycline hyclate 100 mg capsule RxNorm: 6926454 1 Capsule(s) PO BID 02/13/2016 02/19/2016 In active lisinopril 5 mg tablet RxNorm: 030439 1 Tablet(s) PO BID TAKE ONE TABLET BY MO UTH TWICE DAILY 11/20/2015 05/12/2016 Inactive hold until patient calls fo r refill doxycycline hyclate 100 mg capsule RxNorm: 1464231 1 Capsule(s) PO BID 08/02/2015 08/08/2015 In active Kenalog 40 mg/mL russell pension for injection RxNorm: 6908479 Milliliter(s) Inj 08/02/2015 08/02/2015 In active lisinopril 5 mg tablet RxNorm: 845381 TAKE ONE TABLET BY MOUTH TWICE DAILY 06/11/2015 11/19/2015 In active allopurinol 300 mg t ablet RxNorm: 289559 1 Tablet(s) PO daily 05/08/2015 05/01/2016 Inactive lisinopril 5 mg tablet RxNorm: 400100 1 Tablet(s) PO BID 01/30/2015 05/29/2015 Inactive [AttnRPh: Saving apply/adjudicate RxGRP:SG20 RxBIN:[id number] RxPCN: ID#:[id number]] Zithromax Z-Poncho 250 mg tablet RxNorm: 549847 1 Tablet(s) PO UD 01/10/2015 03/23/2016 Inactive zpack allopurinol 300 mg t ablet RxNorm: 028235 1 Tablet(s) PO daily 10/31/2014 04/28/2015 Inactive lisinopril 5 mg tablet RxNorm: 760338 1 Tablet(s) PO BID 07/31/2014 11/27/2014 Inactive [AttnRPh: Saving apply/adjudicate RxGRP:SG20 RxBIN:[id number] RxPCN: ID#:[id number]] allopurinol 300 mg t ablet RxNorm: 633660 1 Tablet(s) PO daily 05/17/2014 10/30/2014 Inactive lisinopril 5 mg tablet RxNorm: 542701 1 Tablet(s) PO BID 03/01/2014 06/28/2014 Inactive [SAVINGS FOR UNINSURED PATIENTS -- BIN:[id number], PCN: [id number], Group: [id number], ID# [id number], Process claim through [employer], for questions: . THIS IS NOT INSURANCE.] Fish Oil 1,000 mg ca psule RxNorm: 3 Capsule(s) PO daily No Start Date Active B Complex 1 oral RxNorm: 07040 oral No Start Date Active Vitamin D3 1,000 uni t capsule RxNorm: 367105 2 Capsule(s) PO daily No Start Date Active Zyrtec 10 mg capsule RxNorm: 2796176 1 Capsule(s) PO daily No Start Date Active fenofibrate nanocrys tallized 48 mg tablet RxNorm: 919779 1 Tablet(s) PO daily No Start Date Active metoprolol tartrate 25 mg tablet RxNorm: 105293 1 Tablet(s) PO daily No Start Date Active multivitamin tablet RxNorm: 1 Tablet(s) PO daily No Start Date Active pravastatin 40 mg ta blet RxNorm: 118580 1 Tablet(s) PO daily No Start Date Active Tessalon Perles 100 mg capsule RxNorm: 354331 1-2 Capsule(s) PO TID as needed No Start Date 04/28/2016 Inactive allopurinol 300 mg t ablet RxNorm: 353646 1 Tablet(s) PO daily No Start Date 05/16/2014 Inactive metformin 500 mg tablet RxNorm: 097506 1 Tablet(s) PO BID No Start Date 02/14/2014 Inactive pioglitazone 15 mg t ablet RxNorm: 082301 1 Tablet(s) PO daily No Start Date 07/30/2014 Inactive lisinopril 5 mg tablet RxNorm: 035268 1 Tablet(s) PO daily No Start Date 02/28/2014 Inactive losartan 25 mg tablet RxNorm: 482015 1/2 Tablet(s) PO daily No Start Date 01/12/2018 Inactive Zithromax Z-Poncho 250 mg tablet RxNorm: 345933 1 Tablet(s) PO UD No Start Date 01/09/2015 Inactive zpack Medication Administered Medication Codes Instruc tions Start Date Status Kenalog 40 mg/mL suspension for injection RxNorm: 2125571 1.5Milliliter 12/03/2017 No longer Active Kenalog 40 mg/mL suspension for injection RxNorm: 5860949 1Milliliter 03/17/2017 N o longer Active Kenalog 40 mg/mL suspension for injection RxNorm: 3968193 Milliliter 11/18/2016 No longer Active Kenalog 40 mg/mL suspension for injection RxNorm: 4860570 1Milliliter 03/24/2016 N o longer Active Kenalog 40 mg/mL suspension for injection RxNorm: 5356535 Milliliter 08/02/2015 No longer Active Immunizations Vaccine [...] Item Item Code Result Date Comp Metabolic Hyu642 NA 136 mEq/L 12/22/2017 Comp Metabolic Rov809 K 4.2 mEq/L 12/22/2017 Comp Metabolic Chu174 CL 105 mEq/L 12/22/2017 Comp Metabolic Heq321 CO2 30.0 mEq/L 12/22/2017 Comp Metabolic Yll385 AN ION GAP 5 12/22/2017 Comp Metabolic Qpy435 GL UCOSE 85 mg/dL 12/22/2017 Comp Metabolic Jlr658 Cr eat 1.2 mg/dL 12/22/2017 Comp Metabolic Jja536 eG FR 62 ml/min/1.73m2 12/22 Comp Metabolic Siv769 BUN 17 mg/dL 12/22/2017 Comp Metabolic Yri726 B/ C Ratio 13.9 Ratio 12/22/2017 Comp Metabolic Lqf241 CA LCIUM 9.3 mg/dL 12/22/2017 Comp Metabolic Lsd408 AL K PHOS 78 U/L 12/22/2017 Comp Metabolic Kmm856 T(SGOT) 24 U/L 12/22/2017 Comp Metabolic Spy546 AL T(SGPT) 28 U/L 12/22/2017 Comp Metabolic Ccc386 BI LI T 0.5 mg/dL 12/22/2017 Comp Metabolic Apb793 AL BUMIN 4.0 g/dL 12/22/2017 Comp Metabolic Sqn537 TP RO 6.6 g/dL 12/22/2017 Comp Metabolic Gah107 GL OB 2.6 g/dL 12/22/2017 Comp Metabolic Awx739 A/ G Ratio 1.6 Ratio 12/22/2017 Comp Metabolic Sqi363 Os mo 273 mOsmo 12/22/2017 Cbc With Differential Ord2 WBC 8.88 K/ul 12/22/2017 Cbc With Differential Ord2 RBC 4.61 M/ul 12/22/2017 Cbc With Differential Ord2 HGB 14.7 g/dl 12/22/2017 Cbc With Differential Ord2 Neut% 68.4 % 12/22/2017 Cbc With Differential Ord2 HCT 43.8 % 12/22/2017 Cbc With Differential Ord2 MCV 95.0 fl 12/22/2017 Cbc With Differential Ord2 Lymph% 21.6 % 12/22/2017 Cbc With Differential Ord2 MCH 31.9 pg 12/22/2017 Cbc With Differential Ord2 Assumption% 6.3 % 12/22/2017 Cbc With Differential Ord2 [...] 1.92 K/ul 12/22/2017 Cbc With Differential Ord2 Assumption ABS# 0.6 K/ul 12/22/2017 Cbc With Differential Ord2 Eos ABS# 0.3 K/ul 12/22/2017 Cbc With Differential Ord2 Baso ABS# 0.0 K/ul 12/22/2017 Comp Metabolic Wuo922 NA 135 mEq/L 06/22/2017 Comp Metabolic Lab425 K 4.2 mEq/L 06/22/2017 Comp Metabolic Hbn500 CL 101 mEq/L 06/22/2017 Comp Metabolic Lvu034 CO2 27.0 mEq/L 06/22/2017 Comp Metabolic Sjf795 AN ION GAP 11 06/22/2017 Comp Metabolic Ser645 GL UCOSE 89 mg/dL 06/22/2017 Comp Metabolic Fty669 Cr eat 1.5 mg/dL 06/22/2017 Comp Metabolic Hzo736 eG FR 51 ml/min/1.73m2 06/22 Comp Metabolic Gfu620 BUN 16 mg/dL 06/22/2017 Comp Metabolic Eja994 B/ C Ratio 11.0 Ratio 06/22/2017 Comp Metabolic Lwb407 CA LCIUM 8.9 mg/dL 06/22/2017 Comp Metabolic Wqb453 AL K PHOS 79 U/L 06/22/2017 Comp Metabolic Bxw894 T(SGOT) 26 U/L 06/22/2017 Comp Metabolic Ddm163 AL T(SGPT) 26 U/L 06/22/2017 Comp Metabolic Toq437 BI LI T 0.4 mg/dL 06/22/2017 Comp Metabolic Hjn242 AL BUMIN 4.1 g/dL 06/22/2017 Comp Metabolic Abd913 TP RO 6.9 g/dL 06/22/2017 Comp Metabolic Abd640 GL OB 2.8 g/dL 06/22/2017 Comp Metabolic Otk534 A/ G Ratio 1.5 Ratio 06/22/2017 Comp Metabolic Ohj567 Os mo 271 mOsmo 06/22/2017 Cbc With Differential Ord2 WBC 9.59 K/ul 06/22/2017 Cbc With Differential Ord2 RBC 4.39 M/ul 06/22/2017 Cbc With Differential Ord2 HGB 14.3 g/dl 06/22/2017 Cbc With Differential Ord2 HCT 42.1 % 06/22/2017 Cbc With Differential Ord2 Neut% 66.3 % 06/22/2017 Cbc With Differential Ord2 Lymph% 22.3 % 06/22/2017 Cbc With Differential Ord2 MCV 95.9 fl 06/22/2017 Cbc With Differential Ord2 Assumption% 7.9 % 06/22/2017 Cbc With Differential Ord2 MCH 32.6 pg 06/22/2017 Cbc With Differential Ord2 MCHC 34.0 pg 06/22/2017 Cbc With Differential Ord2 Eos% 3.3 % 06/22/2017 Cbc With Differential Ord2 PLT 155 K/ul 06/22/2017 Cbc With Differential Ord2 Baso% 0.2 % 06/22/2017 Cbc With Differential Ord2 RDW 13.8 % 06/22/2017 Cbc With Differential Ord2 Neut ABS# 6.35 K/ul 06/22/2017 Cbc With Differential Ord2 Lymph ABS# 2.14 K/ul 06/22/2017 Cbc With Differential Ord2 Assumption ABS# 0.8 K/ul 06/22/2017 Cbc With Differential [...] 33.2 pg 12/25/2015 Cbc With Differential Ord2 Assumption% 7.6 % 12/25/2015 Cbc With Differential Ord2 [...] 1.86 K/ul 12/25/2015 Cbc With Differential Ord2 Assumption ABS# 0.6 K/ul 12/25/2015 Cbc With Differential Ord2 Eos ABS# 0.2 K/ul 12/25/2015 Cbc With Differential Ord2 Baso ABS# 0.1 K/ul 12/25/2015 Comp Metabolic Bpt727 NA 136 mEq/L 12/25/2015 Comp Metabolic Ykk437 K 4.2 mEq/L 12/25/2015 Comp Metabolic Zzm358 CL 104 mEq/L 12/25/2015 Comp Metabolic Eqp097 CO2 26.0 mEq/L 12/25/2015 Comp Metabolic Pjp280 AN ION GAP 10 12/25/2015 Comp Metabolic Jwj988 GL UCOSE 104 mg/dL 12/25/2015 Comp Metabolic Cmw752 Cr eat 1.3 mg/dL 12/25/2015 Comp Metabolic Zbd138 eG FR 59 ml/min/1.73m2 12/24 Comp Metabolic Phv635 BUN 23 mg/dL 12/25/2015 Comp Metabolic Jne554 B/ C Ratio 18.0 Ratio 12/25/2015 Comp Metabolic Qzx311 CA LCIUM 9.1 mg/dL 12/25/2015 Comp Metabolic Vod247 AL K PHOS 76 U/L 12/25/2015 Comp Metabolic Pgz052 T(SGOT) 30 U/L 12/25/2015 Comp Metabolic Bvh141 AL T(SGPT) 28 U/L 12/25/2015 Comp Metabolic Xzs392 BI LI T 0.3 mg/dL 12/25/2015 Comp Metabolic Ylw483 AL BUMIN 4.0 g/dL 12/25/2015 Comp Metabolic Qmj729 TP RO 6.6 g/dL 12/25/2015 Comp Metabolic Lfe193 GL OB 2.6 g/dL 12/25/2015 Comp Metabolic Lmh577 A/ G Ratio 1.5 Ratio 12/25/2015 Comp Metabolic Ueo461 Os mo 276 mOsmo 12/25/2015 Cbc With [...] 32.4 pg 06/25/2015 Cbc With Differential Ord2 Assumption% 7.1 % 06/25/2015 Cbc With Differential Ord2 [...] 2.18 K/ul 06/25/2015 Cbc With Differential Ord2 Assumption ABS# 0.7 K/ul 06/25/2015 Cbc With Differential Ord2 Eos ABS# 0.2 K/ul 06/25/2015 Cbc With Differential Ord2 Baso ABS# 0.0 K/ul 06/25/2015 Cbc With Differential Ord2 New Analyzer Notice Please note new ref ranges s tarting 03-28-2015 due to implemntation of new five part differential hematolgy analyzer. 06/25/2015 %Hba1C Aek583 % HbA1c 93276-6 6.1 % 06/25/2015 %Hba1C Tcn535 Gluc Ave 128 mg/dL 06/25/2015 Comp Metabolic Jbo796 NA 135 mEq/L 06/25/2015 Comp Metabolic Aiz153 K 4.3 mEq/L 06/25/2015 Comp Metabolic Pbw185 CL 102 mEq/L 06/25/2015 Comp Metabolic Ghr764 CO2 26.0 mEq/L 06/25/2015 Comp Metabolic Yzj063 AN ION GAP 11 06/25/2015 Comp Metabolic Ndh557 GL UCOSE 81 mg/dL 06/25/2015 Comp Metabolic Djp381 Cr eat 1.5 mg/dL 06/25/2015 Comp Metabolic Xak477 eG FR 49 ml/min/1.73m2 06/24 Comp Metabolic Wlh176 BUN 20 mg/dL 06/25/2015 Comp Metabolic Ffn381 B/ C Ratio 13.2 Ratio 06/25/2015 Comp Metabolic Xny072 CA LCIUM 9.5 mg/dL 06/25/2015 Comp Metabolic Ixt023 AL K PHOS 65 U/L 06/25/2015 Comp Metabolic Uoh358 T(SGOT) 25 U/L 06/25/2015 Comp Metabolic Qxz725 AL T(SGPT) 29 U/L 06/25/2015 Comp Metabolic Fhi030 BI LI T 0.4 mg/dL 06/25/2015 Comp Metabolic Dnd344 AL BUMIN 4.4 g/dL 06/25/2015 Comp Metabolic Ftp150 TP RO 7.3 g/dL 06/25/2015 Comp Metabolic Kwn543 GL OB 3.0 g/dL 06/25/2015 Comp Metabolic Qbi415 A/ G Ratio 1.5 Ratio 06/25/2015 Comp Metabolic Nty704 Os mo 272 mOsmo 06/25/2015 Tsh Ord6 hTSH II 3.03 uIU/mL 06/25/2015 Lipid Ord30 CHOL 150 mg/dL 06/22/2015 Lipid Ord30 HDL 34.0 mg/dl 06/22/2015 Lipid Ord30 TRIG 149 mg/dL 06/22/2015 Lipid Ord30 LDL 86 mg/dL 06/22/2015 Lipid Ord30 C/HDL 4.4 Ratio 06/22/2015 Hepatic Ulq654 ALBUMIN 4.3 g/dL 06/22/2015 Hepatic Wit028 TPRO 7.0 g/dL 06/22/2015 Hepatic Jcq010 GLOB 2.8 g/dL 06/22/2015 Hepatic Kes199 A/G Ratio 1.5 Ratio 06/22/2015 Hepatic Dtj171 ALK PHOS 65 U/L 06/22/2015 Hepatic Yau482 ALT(SGPT) 33 U/L 06/22/2015 Hepatic Vtz195 AST(SGOT) 28 U/L 06/22/2015 Hepatic Ajt347 BILI T 0.5 mg/dL 06/22/2015 Hepatic Tni157 BILI D 0.1 mg/dL 06/22/2015 Hepatic Omd045 BILI I 0.4 mg/dL 06/22/2015 Review of [...] CPT-4: J3301 12/03/2017 THER/PROPH/DIAG INJ SC/IM CPT-4: 41568 12/03/2017 TRIAMCINOLONE ACET I [place] NOS CPT-4: J3301 06/24/2017 TRIAMCINOLONE ACET I [place] NOS CPT-4: J3301 03/17/2017 TRIAMCINOLONE ACET I [place] NOS CPT-4: J3301 11/18/2016 TRIAMCINOLONE ACET I [place] NOS CPT-4: J3301 03/24/2016 THER/PROPH/DIAG INJ SC/IM CPT-4: 76224 03/24/2016 TRIAMCINOLONE ACET I [place] NOS CPT-4: J3301 08/02/2015 OCCULT BLOOD FECES CPT- 4: 61187 08/03/2014 INITIAL PREVENTIVE EXAM CPT-4: G0402 07/31/2014 Vital Signs Date Vital 02/10/2018 Blood Pressure 1: 140/72 Code: 8480-6 BMI: 33.7 Code: 51143-4 Heart Rate 1: 48 bpm Height: 5'10" SpO2: 95% Temperature: 36.6 (C ) / 97.8 (F) Weight: 235 lbs 01/13/2018 Blood Pressure 1: 118/66 Code: 8480-6 BMI: 33.3 Code: 20250-4 Heart Rate 1: 57 bpm Height: 5'10" SpO2: 98% Waist Measure (cm): 97 cm Weight: 232 lbs 12/23/2017 Blood Pressure 1: 120/62 Code: 8480-6 BMI: 33.7 Code: 09582-9 Heart Rate 1: 58 bpm Height: 5'10" SpO2: 96% Weight: 235 lbs 06/24/2017 Blood Pressure 1: 136/74 Code: 8480-6 BMI: 38.7 Code: 73915-0 Heart Rate 1: 75 bpm Height: 5'10" SpO2: 98% Weight: 270 lbs 03/17/2017 Blood Pressure 1: 138/78 Code: 8480-6 Heart Rate 1: 65 bpm SpO2: 97% Temperature: 36.6 (C ) / 97.8 (F) 12/24/2016 Blood Pressure 1: 134/78 Code: 8480-6 BMI: 37.2 Code: 76956-0 Heart Rate 1: 56 bpm Height: 5'10" SpO2: 98% Weight: 259 lbs 11/18/2016 Blood Pressure 1: 130/72 Code: 8480-6 BMI: 37.3 Code: 01848-7 Heart Rate 1: 70 bpm Height: 5'10" SpO2: 95% Weight: 260 lbs 06/24/2016 Blood Pressure 1: 134/80 Code: 8480-6 BMI: 38.3 Code: 21501-0 Heart Rate 1: 66 bpm Height: 5'10" SpO2: 98% Weight: 267 lbs 05/20/2016 Blood Pressure 1: 138/82 Code: 8480-6 BMI: 37.4 Code: 80805-6 Heart Rate 1: 65 bpm Height: 5'10" SpO2: 100% Weight: 261 lbs 05/09/2016 Blood Pressure 1: 154/78 Code: 8480-6 Heart Rate 1: 82 bpm Height: SpO2: 89% Temperature: 36.2 (C ) / 97.2 (F) Weight: 04/28/2016 Blood Pressure 1: 112/62 Code: 8480-6 BMI: 37.9 Code: 36821-4 Heart Rate 1: 73 bpm Height: 5'10" SpO2: 94% Temperature: 37.2 (C ) / 98.9 (F) Weight: 264 lbs 04/04/2016 Blood Pressure 1: 150/86 Code: 8480-6 Blood Pressure 1: 148/86 Code: 8480-6 Heart Rate 1: 71 bpm SpO2: 93% SpO2: 95% Temperature: 37.2 (C ) / 99.0 (F) 03/28/2016 Blood Pressure 1: 156/74 Code: 8480-6 BMI: 38.0 Code: 89869-9 Heart Rate 1: 84 bpm Height: 5'10" SpO2: 95% Weight: 265 lbs 02/13/2016 Blood Pressure 1: 118/62 Code: 8480-6 BMI: 39.2 Code: 97384-4 Heart Rate 1: 65 bpm Height: 5'10" SpO2: 96% Weight: 273 lbs 08/02/2015 Blood Pressure 1: 150/82 Code: 8480-6 BMI: 38.3 Code: 16959-1 Heart Rate 1: 75 bpm Height: 5'10" SpO2: 93% Weight: 267 lbs 06/22/2015 Blood Pressure 1: 138/80 Code: 8480-6 BMI: 38.7 Code: 57447-9 Heart Rate 1: 76 bpm Height: 5'10" SpO2: 96% Weight: 270 lbs 07/31/2014 Blood Pressure 1: 138/70 Code: 8480-6 BMI: 37.7 Code: 08157-9 Heart Rate 1: 70 bpm Height: 5'10" Respiratory Rate: 20 bpm Weight: 263 lbs 03/20/2014 Blood Pressure 1: 142/80 Code: 8480-6 BMI: 37.7 Code: 86636-8 Heart Rate 1: 64 bpm Height: 5'10" Weight: 263 lbs 03/01/2014 Blood Pressure 1: 150/90 Code: 8480-6 Blood Pressure 2: 140/80 Code: 8480-6 BMI: 37.3 Code: 50706-0 Heart Rate 1: 56 bpm Height: 5'10" [...] ago 04/28/2016 None cough [facility] 04/04/2016 None cough Location in the [...] allergic rhinitis[ICD10: J30.89] Lulu Camacho MD, [facility] CPT-4: 14581 02/10/2018 ([id number]) 48758 EST. P ATIENT, LEVEL IV Diagnosis: Essential (primary) hypertension[ICD10: I10] Diagnosis: Mixed hyperlipidemia[ICD10: E78.2] Diagnosis: Nonrheumatic aortic (valve) stenosis[ICD10: I35.0] Trina Camacho MD, [facility] CPT-4: 61920 12/23/2017 ([id number]) PER PM REEVA L EST PAT 65+ YR Diagnosis: Encounter for general adult medical examination with abnormal findings[ICD10: Z00.01] Trina Camacho MD, [facility] CPT-4: 97399 06/24/2017 ([id number]) Patient adm itted to the hospital from clinic (NO CHARGE) Diagnosis: [ICD9: ] Diagnosis: Essential (primary) hypertension[ICD10: I10] Diagnosis: Other allergic rhinitis[ICD10: J30.89] Diagnosis: Cough[ICD10: R05] Diagnosis: Mixed hyperlipidemia[ICD10: E78.2] [facility] CPT- 4: 16511T 06/24/2017 [id number] EST. PATIENT, LEVEL IV Diagnosis: Other acute sinusitis[ICD10: J01.80] Diagnosis: Other allergic rhinitis[ICD10: J30.89] Lulu Camacho MD, [facility] CPT-4: 48770 03/17/2017 ([id number]) 72378 EST. P ATIENT, LEVEL IV Diagnosis: Essential (primary) hypertension[ICD10: I10] Diagnosis: Mixed hyperlipidemia[ICD10: E78.2] Trina Camacho MD, [facility] CPT- 4: 53756 12/24/2016 44010 EST. PATIENT, LEVEL IV Diagnosis: Acute bronchitis due to other specified organisms[ICD10: J20.8] Lulu Camacho MD, [facility] CPT-4: 23771 11/18/2016 ([id number]) 54073 EST. P ATIENT, LEVEL III Diagnosis: Essential (primary) hypertension[ICD10: I10] Trina Camacho MD, [facility] CPT-4: 18304 06/24/2016 ([id number]) 68605 EST. P ATIENT, LEVEL III Diagnosis: Essential (primary) hypertension[ICD10: I10] Diagnosis: Cough[ICD10: R05] Diagnosis: Candidal stomatitis[ICD10: B37.0] Trina Camacho MD, [facility] CPT-4: 10650 05/20/2016 ([id number]) Patient adm itted to the hospital from clinic (NO CHARGE) Diagnosis: Pneumonia, unspecified organism[ICD10: J18.9] Diagnosis: Cough[ICD10: R05] Trina Camacho MD, [facility] CPT-4: 12607G 05/09/2016 [id number] EST. PATIENT, LEVEL III Diagnosis: Acute laryngopharyngitis[ICD10: J06.0] Diagnosis: Cough[ICD10: R05] Lulu Camacho MD, [facility] CPT-4: 81780 04/28/2016 ([id number]) 19170 EST. P ATIENT, LEVEL III Diagnosis: Cough[ICD10: R05] Diagnosis: Essential (primary) hypertension[ICD10: I10] Susu Camacho MD, [facility] CPT-4: 61980 04/04/2016 ([id number]) 00203 EST. P ATIENT, LEVEL III Diagnosis: Cough[ICD10: R05] Diagnosis: Pneumonia, unspecified organism[ICD10: J18.9] Susu Camacho MD, [facility] CPT-4: 45836 03/28/2016 [id number] EST. PATIENT, LEVEL IV Diagnosis: Other allergic rhinitis[ICD10: J30.89] Diagnosis: Other acute sinusitis[ICD10: J01.80] Lulu Camacho MD, [facility] CPT- 4: 97735 02/13/2016 59237 EST. PATIENT, LEVEL IV Diagnosis: Acute bronchitis due to other specified organisms[ICD10: J20.8] Diagnosis: Other acute sinusitis[ICD10: J01.80] Diagnosis: Other allergic rhinitis[ICD10: J30.89] Lulu Camacho MD, [facility] CPT-4: 50698 08/02/2015 ([id number]) 56546 EST. P ATIENT, LEVEL IV Diagnosis: Essential (primary) hypertension[ICD10: I10] Diagnosis: Mixed hyperlipidemia[ICD10: E78.2] Diagnosis: Impaired fasting glucose[ICD10: R73.01] Susu Camacho MD, [facility] CPT-4: 79923 06/22/2015 ([id number]) 62307 EST. P ATIENT, LEVEL IV Diagnosis: ESSENTIAL HYPERTENSION[ICD9: 401.9] Diagnosis: Aortic stenosis[ICD9: 424.1] Diagnosis: Hyperlipidemia[ICD9: 272.4] Trina Camacho MD, [facility] CPT-4: 28778 03/20/2014 ([id number]) OFFICE VISI T, NEW - LEVEL 4 Diagnosis: ESSENTIAL HYPERTENSION[ICD9: 401.9] Diagnosis: DIABETES TYPE II[ICD9: 250.00] Diagnosis: Heart murmur[ICD9: 785.2] Diagnosis: Snoring[ICD9: 786.09] Diagnosis: Sleep-disordered breathing[ICD9: 780.59] Trina Camacho MD, [facility] CPT-4: 88497 03/01/2014 Plan of Care Planned Activity Notes [...] increased activity 12/23/2017 Appointment: Trina Camacho WPtel: [address] [place], [place] [id number] (15 min) Moderate 12/23/2017 Patient Education: Patient [...] inhales bid. 06/24/2017 Appointment: Trina Camacho WPtel: [address] [place], [place] [phone] (15 min) Moderate 06/24/2017 Patient Education: Patient [...] allergy spray. 03/17/2017 Appointment: Lulu Mann WPtel: [facility] [id number] (15 min) Moderate 03/17/2017 Patient Education: Patient [...] to medications. 12/24/2016 Appointment: Trina Camacho WPtel: [facility] (15 min) Moderate 12/24/2016 Patient Education: [...] acutely worsen. 11/18/2016 Appointment: Lulu Mann WPtel: [phone] (30 min) Complex 11/18/2016 Patient Education: Patient [...] at home. 06/24/2016 Appointment: Trina Camacho WPtel: [id number] (15 min) Moderate 06/24/2016 Patient Education: [...] swallow 05/20/2016 Appointment: Trina Camacho WPtel: [phone] [phone] (15 min) Moderate 05/20/2016 Patient Education: Patient Medication Summary Completed 05/20/2016 Patient Education: Obesity Completed 05/20/2016 Patient Education: Hypertension Completed 05/20/2016 Visit Plan: PNEUMONIA - PT IS CLINI WESLY SYMPTOMATIC FOR PNEUMONIA - A CHEST XRAY, SPUTUM C AND S, BLOOD CULTURES, AND LABS HAVE BEEN ORDERED IN ORDER TO FURTHER WORK-UP THE ACUTE ILLNESS. 05/09/2016 Appointment: Susu Mills WPtel: [facility]5 [phone] (15 min) Moderate 05/09/2016 Patient Education: Patient Medication Summary Completed 05/09/2016 Visit Plan: URI - Pt advised to inc rease fluids, vitamin C. Discussed natural and expected course of this diagnosis and need to alert me if symptoms do not follow expected course, or if any worse. RX sent to patient's pharmacy. 04/28/2016 Appointment: Lulu Mann WPtel: [facility] [place] (15 min) Moderate 04/28/2016 Patient Education: Patient [...] verbalized understanding. 04/04/2016 Appointment: Susu Mills WPtel: [facility] [phone] [place] (10 min) Simple 04/04/2016 Patient Education: Patient Medication Summary Completed 04/04/2016 Patient Education: Hypertension Completed 04/04/2016 Visit Plan: Pneumonia-cough- improv ing-finish abx and call if symptoms do not completely resolved-patient verbalized understanding of plan. 03/28/2016 Appointment: Susu Mills WPtel: [facility]5 [phone] [place] (30 min) Complex 03/28/2016 Patient Education: Patient Medication Summary Completed 03/28/2016 Patient Education: Obesity Completed 03/28/2016 Visit Plan: Cough-kenalog injection today-start abx as directed-f/u , sooner if needed 03/24/2016 Appointment: Susu Mills WPtel: [address] [place] [address] (10 min) Simple 03/24/2016 Patient Education: Patient [...] show improvement. 02/13/2016 Appointment: Susu Mills WPtel: [address] [place], [place] [phone] (15 min) Moderate 02/13/2016 Patient Education: Patient [...] [facility]Ptel: [phone] [facility] [place] (15 min) Moderate 08/02/2015 Patient Education: Patient [...] Patient Medication Summary Completed 07/31/2014 Patient Education: [facility] - [employer] [employer] - Lisinopril - 18+ - Dynamic Portal ID Completed 07/31/2014 Visit Plan: WOY-dlrbzrca-xueqy slig htly elevated-patient tolerated lisinopril 5mg BID well, did not tolerate 10mg daily in the past. Recommend he monitor blood pressure and pulse at home and bring in readings for review. Aortic Stenosis-recommend stress test-refer to Dr Avilez for evaluation Hyperlipidemia-continue statin medication-increase exercise and weight loss-low fat diet. Repeat labs in 3-6 months-Patient verbalized understanding of plan. 03/20/2014 Visit Plan: XYX-etzoiriq-hkprr slig htly elevated-patient tolerated lisinopril 5mg BID well, did not tolerate 10mg daily in the past. Recommend he monitor blood pressure and pulse at home and bring in readings for review. Aortic Stenosis-recommend stress test-refer to Dr Avilez for evaluation Hyperlipidemia-continue statin medication-increase exercise and weight loss-low fat diet. Repeat labs in 3-6 months-Patient verbalized understanding of plan. Daytime dtwylbydbox-nafhves-biwesep-refer for sleep study 03/20/2014 Appointment: Follow up 03/20/2014 Patient Education: Patient Medication Summary Completed 03/20/2014 Care Plan: Referral Order SNOMED-CT : [id number] Ordered 03/20/2014 Visit Plan: Hypertension - uncontro [...] previous physician. 03/01/2014 Appointment: Trina Camacho [facility]Ptel[facility] [facility] 03/01/2014 Patient Education: Patient Medication Summary Completed 03/01/2014 Patient Education: Hypertension Completed 03/01/2014 Referral: Dr Avilez Referral Initiated Instructions Comment . HYA-sjcfaohw-qwlqt slightly elevated-patient tolerated lisinopril 5mg BID well, did not tolerate 10mg daily in the past. Recommend he monitor blood pressure and pulse at home and bring in readings for review. Aortic Stenosis-recommend stress test-refer to Dr Avilez for evaluation Hyperlipidemia-continue statin medication-increase exercise and weight loss-low fat diet. Repeat labs in 3-6 months-Patient verbalized understanding of plan. . IPA-clwkbmiw-uymic slightly elevated-patient tolerated lisinopril 5mg BID well, did not tolerate 10mg daily in the past. Recommend he monitor blood pressure and pulse at home and bring in readings for review. Aortic Stenosis-recommend stress test-refer to Dr Avilez for evaluation Hyperlipidemia-continue statin medication-increase exercise and weight loss-low fat diet. Repeat labs in 3-6 months-Patient verbalized understanding of plan. Daytime dkjjlzzmpaf-xdfoucu-ewfhsnt-refer for sleep study . Sinusitis - Pt [...] get his labs from his previous physician. Let me know if you a re [...]
--- OUTSIDE RECORDS SUMMARY | 2019-03-16 12:46 | XMS REPORT | CCD ---
Author Author Farshad Camacho Organization Trina Camacho MD, [facility] Address [address] [place] [address] Phone Care Team Providers Care Risk Management Internship Name Role Phone PP Unavailable CCM Unavailable Summary Purpose Interface Exchange Insurance Providers Payer name Policy type / Coverage type Covered democrat ID Effective Begin Date Effective End Date WPS Medicare Part B Medicare Part B [id number] Unknown Cigna Medicare Part B 80 [id number] Unknown Family history Brother Diagnosis Age At Onset lung cancer Unknown Alcoholism Unknown Mother Diagnosis Age At Onset Cancer Unknown Pancratic cancer Unknown Arthritis Unknown Father Diagnosis Age At Onset Alcoholism Unknown Social History Social History Element Codes Description Effective Dates Marital status Unknown M alberto Rice 03/01/2014 Number of children Unknown 3 and 3 step 03/01/[address]: 6606882 Former smoker quit 199603/01/2014 Allergies, Adverse Reactions, Alerts Substance Reaction Codes Entered Date Inactivated Date Status Seasonal Unknown 03/01/2014 No In active Date Active [employer] INHIBITORS Unknown 05/13/2016 No In active Date Active ibuprofen RxNorm: 5640 07/31/2014 No Inactive Date Active Penicillin hives Unknown 03/01/2014 No In active Date Active Past Medical History Illness Codes Condition Status Onset Date Resolved Date Encounter for [facility] adult medical examination with abnormal [...] ICD-9: 786.2 ICD-10: R05 Resolved 04/03/2016 Unknown Other acute sinusitis ICD-9: 461.8 ICD-10: J01.80 Resolved 02/12/2016 Unknown Other allergic rhinitis ICD-9: 477.8 ICD-10: J30.89 Resolved 12/23/2017 Unknown Pneumonia, unspecifi ed organism ICD-9: 486 [...] Condition Codes Effectiv e Dates Condition Status Encounter for genera l adult medical examination [...] Cough ICD-9: 786.2 ICD-10: R05 04/03/2016 Resolved Other acute sinusitis ICD-9: 461.8 ICD-10: J01.80 02/12/2016 Resolved Other allergic rhinitis ICD-9: 477.8 ICD-10: J30.89 12/23/2017 Resolved Pneumonia, unspecifi ed organism ICD-9: 486 [...] Date Stop Date Sta tus Fill Instructions Advair Diskus 250 mc g-50 mcg/dose powder for inhalation RxNorm: 8685036 1 Puff(s) INH BID 12/29/2017 No Stop Date Active Zithromax Z-Poncho 250 mg tablet RxNorm: 757277 1 Tablet(s) PO UD 12/29/2017 01/02/2018 Inactive bj Spann 100 mg capsule RxNorm: 941084 1-2 Capsule(s) PO TID as needed 12/29/2017 01/02/2018 In active allopurinol 300 mg t ablet RxNorm: 914173 Tablet(s) TAKE ONE TA BLET BY MOUTH ONCE DAILY 12/10/2017 No Stop Date Active Kenalog 40 mg/mL [employer] pension for injection RxNorm: 7906697 1.5 Milliliter(s) In j 12/03/2017 12/03/2017 In active allopurinol 300 mg t ablet RxNorm: 668713 TAKE ONE TABLET BY MO UTH ONCE DAILY 09/08/2017 12/09/2017 In active allopurinol 300 mg t ablet RxNorm: 780566 TAKE ONE TABLET BY MO UTH ONCE DAILY 06/15/2017 09/07/2017 In active Keflex 500 mg capsule RxNorm: 460059 1 Capsule(s) PO TID 05/04/2017 05/13/2017 Inactive Kenalog 40 mg/mL [employer]ell pension for injection RxNorm: 3993978 1 Milliliter(s) Inj 03/17/2017 03/17/2017 In active Keflex 500 mg capsule RxNorm: 751783 1 Capsule(s) PO TID 03/13/2017 03/12/2017 Inactive Keflex 500 mg capsule RxNorm: 026663 1 Capsule(s) PO TID 03/13/2017 03/22/2017 Inactive prednisone 10 mg tablet RxNorm: 676381 Tablet(s) PO UD start on 11/1911/18/2016 12/23/2016 Inactive 60,50,40,30,20,10 Advair Diskus 250 mc g-50 mcg/dose powder for inhalation RxNorm: 0663236 1 Puff(s) INH BID 11/18/2016 12/28/2017 Inactive doxycycline hyclate 100 mg capsule RxNorm: 7473331 1 Capsule(s) PO BID 11/18/2016 11/27/2016 In active Kenalog 40 mg/mL russell pension for injection RxNorm: 0148853 Milliliter(s) Inj 11/18/2016 11/18/2016 In active nystatin 100,000 uni t/mL oral suspension RxNorm: 809387 5 Milliliter(s) PO QI D 05/20/2016 05/29/2016 In active allopurinol 300 mg t ablet RxNorm: 080745 TAKE ONE TABLET BY [facility] ONCE DAILY 05/11/2016 05/05/2017 In active Tessalon Perles 100 mg capsule RxNorm: 890871 1-2 Capsule(s) PO TID as needed 04/29/2016 05/03/2016 In active Prilosec OTC 20 mg t ablet,delayed release RxNorm: 556390 Tablet(s) PO 04/28/2016 11/16/2016 In active doxycycline hyclate 100 mg capsule RxNorm: 9555290 1 Capsule(s) PO BID 04/28/2016 05/07/2016 In active Tamiflu 75 mg capsule RxNorm: 561418 1 Capsule(s) PO BID 04/07/2016 04/11/2016 Inactive Tamiflu 75 mg capsule RxNorm: 214836 1 Capsule(s) PO BID 04/07/2016 04/06/2016 Inactive prednisone 20 mg tablet RxNorm: 092110 1 Tablet(s) PO BID 04/04/2016 04/08/2016 Inactive Kenalog 40 mg/mL russell pension for injection RxNorm: 4364040 1 Milliliter(s) Inj 03/24/2016 03/24/2016 In active cefdinir 300 mg capsule RxNorm: 538951 1 Capsule(s) PO BID 03/24/2016 03/30/2016 Inactive Zithromax Z-Poncho 250 mg tablet RxNorm: 025204 1 Tablet(s) PO UD 03/24/2016 03/28/2016 Inactive zpack cefdinir 300 mg capsule RxNorm: 547456 1 Capsule(s) PO BID 03/24/2016 03/23/2016 Inactive Flonase Allergy Reli ef 50 mcg/actuation nasal spray,suspension RxNorm: 8855147 1 [place] NASAL BID 02/13/2016 No Stop Date Active doxycycline hyclate 100 mg capsule RxNorm: 3910364 1 Capsule(s) PO BID 02/13/2016 02/19/2016 In active lisinopril 5 mg tablet RxNorm: 408554 1 Tablet(s) PO BID TAKE ONE TABLET BY [facility] TWICE DAILY 11/20/2015 05/12/2016 Inactive hold until patient calls fo r refill doxycycline hyclate 100 mg capsule RxNorm: 0360802 1 Capsule(s) PO BID 08/02/2015 08/08/2015 In active Kenalog 40 mg/mL [employer] pension for injection RxNorm: 7893118 Milliliter(s) Inj 08/02/2015 08/02/2015 In active lisinopril 5 mg tablet RxNorm: 299305 TAKE ONE TABLET BY MOUTH TWICE DAILY 06/11/2015 11/19/2015 In active allopurinol 300 mg t ablet RxNorm: 110914 1 Tablet(s) PO daily 05/08/2015 05/01/2016 Inactive lisinopril 5 mg tablet RxNorm: 586296 1 Tablet(s) PO BID 01/30/2015 05/29/2015 Inactive [AttnRPh: Saving apply/adjudicate RxGRP:SG20 RxBIN:[id number] RxPCN: ID#:[id number]] Zithromax Z-Poncho 250 mg tablet RxNorm: 735530 1 Tablet(s) PO UD 01/10/2015 03/23/2016 Inactive zpack allopurinol 300 mg t ablet RxNorm: 601820 1 Tablet(s) PO daily 10/31/2014 04/28/2015 Inactive lisinopril 5 mg tablet RxNorm: 400427 1 Tablet(s) PO BID 07/31/2014 11/27/2014 Inactive [AttnRPh: Saving apply/adjudicate RxGRP:SG20 RxBIN:[id number] RxPCN: ID#:[id number]] allopurinol 300 mg t ablet RxNorm: 333639 1 Tablet(s) PO daily 05/17/2014 10/30/2014 Inactive lisinopril 5 mg tablet RxNorm: 832808 1 Tablet(s) PO BID 03/01/2014 06/28/2014 Inactive [SAVINGS FOR UNINSURED PATIENTS -- BIN:[id number], PCN: [id number], Group: [id number], ID# [id number], Process claim through [employer], for questions: . THIS IS NOT INSURANCE.] Fish Oil 1,000 mg ca psule RxNorm: 3 Capsule(s) PO daily No Start Date Active B Complex 1 oral RxNorm: 72511 oral No Start Date Active Vitamin D3 1,000 uni t capsule RxNorm: 695007 2 Capsule(s) PO daily No Start Date Active Zyrtec 10 mg capsule RxNorm: 6094638 1 Capsule(s) PO daily No Start Date Active fenofibrate nanocrys tallized 48 mg tablet RxNorm: 316594 1 Tablet(s) PO daily No Start Date Active metoprolol tartrate 25 mg tablet RxNorm: 756319 1 Tablet(s) PO daily No Start Date Active multivitamin tablet RxNorm: 1 Tablet(s) PO daily No Start Date Active pravastatin 40 mg ta blet RxNorm: 526929 1 Tablet(s) PO daily No Start Date Active Tessalon Perles 100 mg capsule RxNorm: 186364 1-2 Capsule(s) PO TID as needed No Start Date 04/28/2016 Inactive allopurinol 300 mg t ablet RxNorm: 284802 1 Tablet(s) PO daily No Start Date 05/16/2014 Inactive metformin 500 mg tablet RxNorm: 276667 1 Tablet(s) PO BID No Start Date 02/14/2014 Inactive pioglitazone 15 mg t ablet RxNorm: 115004 1 Tablet(s) PO daily No Start Date 07/30/2014 Inactive lisinopril 5 mg tablet RxNorm: 642794 1 Tablet(s) PO daily No Start Date 02/28/2014 Inactive losartan 25 mg tablet RxNorm: 448605 1/2 Tablet(s) PO daily No Start Date 01/12/2018 Inactive Zithromax Z-Poncho 250 mg tablet RxNorm: 752005 1 Tablet(s) PO UD No Start Date 01/09/2015 Inactive [employer] Medication Administered Medication Codes Instruc tions Start Date Status Kenalog 40 mg/mL suspension for injection RxNorm: 6811417 1.5Milliliter 12/03/2017 No longer Active Kenalog 40 mg/mL suspension for injection RxNorm: 2858885 1Milliliter 03/17/2017 N o longer Active Kenalog 40 mg/mL suspension for injection RxNorm: 9798728 Milliliter 11/18/2016 No longer Active Kenalog 40 mg/mL suspension for injection RxNorm: 3779318 1Milliliter 03/24/2016 N o longer Active Kenalog 40 mg/mL suspension for injection RxNorm: 7096511 Milliliter 08/02/2015 No longer Active Immunizations Vaccine Codes Date Status Influenza CVX: 141 12/18 completed Influenza CVX: 141 12/14 completed Pneumococcal CVX: 33 03/2012 completed Zoster CVX: 121 11/15/19 13 completed Assessments Condition Codes Effectiv e Dates Encounter for general adult medical exam ination with abnormal findings ICD-10: Z00.01 ICD-9: V70.0 01/13/2018 Nonrheumatic aortic (valve) stenosis ICD-10: I35.0 ICD-9: 424.1 12/23/2017 Mixed hyperlipidemia ICD-10: E78.2 ICD-9: 272.4 12/23/2017 Essential (primary) hypertension ICD -10: I10 ICD-9: 401.1 12/23/2017 Other allergic rhinitis ICD-10: J30. 89 ICD-9: 477.8 12/03/2017 Cough ICD-10: R05 ICD-9: 786.2 06/24/2017 Other acute sinusitis ICD-10: J01.80 ICD-9: 461.8 03/17/2017 Acute bronchitis due to other specified organisms [...] Visit Reason For Visit Effective Dates Notes Annual Medicare Wellness Exam 01/13/2018 hypertension 12/23/2017 [...] Item Item Code Result Date Comp Metabolic Hnx536 NA 136 mEq/L 12/22/2017 Comp Metabolic Cpw122 K 4.2 mEq/L 12/22/2017 Comp Metabolic Vdr809 CL 105 mEq/L 12/22/2017 Comp Metabolic Egm365 CO2 30.0 mEq/L 12/22/2017 Comp Metabolic Xho954 AN ION GAP 5 12/22/2017 Comp Metabolic Fzv523 GL UCOSE 85 mg/dL 12/22/2017 Comp Metabolic Ouk254 Cr eat 1.2 mg/dL 12/22/2017 Comp Metabolic Ead097 eG FR 62 ml/min/1.73m2 12/22 Comp Metabolic Cxs082 BUN 17 mg/dL 12/22/2017 Comp Metabolic Roe044 B/ C Ratio 13.9 Ratio 12/22/2017 Comp Metabolic Fpj546 CA LCIUM 9.3 mg/dL 12/22/2017 Comp Metabolic Rsn205 AL K PHOS 78 U/L 12/22/2017 Comp Metabolic Xxe298 T(SGOT) 24 U/L 12/22/2017 Comp Metabolic Jha543 AL T(SGPT) 28 U/L 12/22/2017 Comp Metabolic Kby319 BI LI T 0.5 mg/dL 12/22/2017 Comp Metabolic Viw785 AL BUMIN 4.0 g/dL 12/22/2017 Comp Metabolic Gtz177 TP RO 6.6 g/dL 12/22/2017 Comp Metabolic Smn578 GL OB 2.6 g/dL 12/22/2017 Comp Metabolic Low671 A/ G Ratio 1.6 Ratio 12/22/2017 Comp Metabolic Vtm857 Os mo 273 mOsmo 12/22/2017 Cbc With [...] 21.6 % 12/22/2017 Cbc With Differential Ord2 [place]% 6.3 % 12/22/2017 Cbc With Differential Ord2 [...] 1.92 K/ul 12/22/2017 Cbc With Differential Ord2 [place] ABS# 0.6 K/ul 12/22/2017 Cbc With Differential Ord2 Eos ABS# 0.3 K/ul 12/22/2017 Cbc With Differential Ord2 Baso ABS# 0.0 K/ul 12/22/2017 Comp Metabolic Kjg916 NA 135 mEq/L 06/22/2017 Comp Metabolic Wpb640 K 4.2 mEq/L 06/22/2017 Comp Metabolic Mnd465 CL 101 mEq/L 06/22/2017 Comp Metabolic Gwt818 CO2 27.0 mEq/L 06/22/2017 Comp Metabolic Jiz876 AN ION GAP 11 06/22/2017 Comp Metabolic Zpf396 GL UCOSE 89 mg/dL 06/22/2017 Comp Metabolic Bzd072 Cr eat 1.5 mg/dL 06/22/2017 Comp Metabolic Wqb066 eG FR 51 ml/min/1.73m2 06/22 Comp Metabolic Ufz345 BUN 16 mg/dL 06/22/2017 Comp Metabolic Jqx177 B/ C Ratio 11.0 Ratio 06/22/2017 Comp Metabolic Ezo942 CA LCIUM 8.9 mg/dL 06/22/2017 Comp Metabolic Sti664 AL K PHOS 79 U/L 06/22/2017 Comp Metabolic Cgw207 T(SGOT) 26 U/L 06/22/2017 Comp Metabolic Ror925 AL T(SGPT) 26 U/L 06/22/2017 Comp Metabolic Hqw650 BI LI T 0.4 mg/dL 06/22/2017 Comp Metabolic Naj979 AL BUMIN 4.1 g/dL 06/22/2017 Comp Metabolic Jug383 TP RO 6.9 g/dL 06/22/2017 Comp Metabolic Lni862 GL OB 2.8 g/dL 06/22/2017 Comp Metabolic Bvv636 A/ G Ratio 1.5 Ratio 06/22/2017 Comp Metabolic Zux969 Os mo 271 mOsmo 06/22/2017 Cbc With [...] 32.6 pg 06/22/2017 Cbc With Differential Ord2 [place]% 7.9 % 06/22/2017 Cbc With Differential Ord2 [...] 2.14 K/ul 06/22/2017 Cbc With Differential Ord2 [place] ABS# 0.8 K/ul 06/22/2017 Cbc With Differential [...] 25.2 % 12/25/2015 Cbc With Differential Ord2 [place]% 7.6 % 12/25/2015 Cbc With Differential Ord2 [...] 1.86 K/ul 12/25/2015 Cbc With Differential Ord2 [place] ABS# 0.6 K/ul 12/25/2015 Cbc With Differential Ord2 Eos ABS# 0.2 K/ul 12/25/2015 Cbc With Differential Ord2 Baso ABS# 0.1 K/ul 12/25/2015 Comp Metabolic Ibs099 NA 136 mEq/L 12/25/2015 Comp Metabolic Wgc649 K 4.2 mEq/L 12/25/2015 Comp Metabolic Jwf904 CL 104 mEq/L 12/25/2015 Comp Metabolic Gss153 CO2 26.0 mEq/L 12/25/2015 Comp Metabolic Ink003 AN ION GAP 10 12/25/2015 Comp Metabolic Amp496 GL UCOSE 104 mg/dL 12/25/2015 Comp Metabolic Uhv104 Cr eat 1.3 mg/dL 12/25/2015 Comp Metabolic Dgv211 eG FR 59 ml/min/1.73m2 12/24 Comp Metabolic Qzc951 BUN 23 mg/dL 12/25/2015 Comp Metabolic Ipl719 B/ C Ratio 18.0 Ratio 12/25/2015 Comp Metabolic Dah731 CA LCIUM 9.1 mg/dL 12/25/2015 Comp Metabolic Kdn680 AL K PHOS 76 U/L 12/25/2015 Comp Metabolic Qds262 T(SGOT) 30 U/L 12/25/2015 Comp Metabolic Xpe128 AL T(SGPT) 28 U/L 12/25/2015 Comp Metabolic Zql545 BI LI T 0.3 mg/dL 12/25/2015 Comp Metabolic Hgy097 AL BUMIN 4.0 g/dL 12/25/2015 Comp Metabolic Aup909 TP RO 6.6 g/dL 12/25/2015 Comp Metabolic Jpw380 GL OB 2.6 g/dL 12/25/2015 Comp Metabolic Ryi021 A/ G Ratio 1.5 Ratio 12/25/2015 Comp Metabolic Wgj886 Os mo 276 mOsmo 12/25/2015 Cbc With [...] 32.4 pg 06/25/2015 Cbc With Differential Ord2 [place]% 7.1 % 06/25/2015 Cbc With Differential Ord2 [...] 2.18 K/ul 06/25/2015 Cbc With Differential Ord2 [place] ABS# 0.7 K/ul 06/25/2015 Cbc With Differential Ord2 Eos ABS# 0.2 K/ul 06/25/2015 Cbc With Differential Ord2 Baso ABS# 0.0 K/ul 06/25/2015 Cbc With Differential Ord2 New Analyzer Notice Please note new ref ranges s tarting 03-28-2015 due to implemntation of new five part differential hematolgy analyzer. 06/25/2015 %Hba1C Gtq196 % HbA1c 28562-4 6.1 % 06/25/2015 %Hba1C Nen796 Gluc Ave 128 mg/dL 06/25/2015 Comp Metabolic Pcd244 NA 135 mEq/L 06/25/2015 Comp Metabolic Wlb321 K 4.3 mEq/L 06/25/2015 Comp Metabolic Dai512 CL 102 mEq/L 06/25/2015 Comp Metabolic Fvv632 CO2 26.0 mEq/L 06/25/2015 Comp Metabolic Ssq964 AN ION GAP 11 06/25/2015 Comp Metabolic Kcd727 GL UCOSE 81 mg/dL 06/25/2015 Comp Metabolic Itc228 Cr eat 1.5 mg/dL 06/25/2015 Comp Metabolic Mpv790 eG FR 49 ml/min/1.73m2 06/24 Comp Metabolic Nzi701 BUN 20 mg/dL 06/25/2015 Comp Metabolic Wsr766 B/ C Ratio 13.2 Ratio 06/25/2015 Comp Metabolic Hbq952 CA LCIUM 9.5 mg/dL 06/25/2015 Comp Metabolic Qtk583 AL K PHOS 65 U/L 06/25/2015 Comp Metabolic Lmt904 T(SGOT) 25 U/L 06/25/2015 Comp Metabolic Sbx732 AL T(SGPT) 29 U/L 06/25/2015 Comp Metabolic Jko314 BI LI T 0.4 mg/dL 06/25/2015 Comp Metabolic Icp223 AL BUMIN 4.4 g/dL 06/25/2015 Comp Metabolic Tlv206 TP RO 7.3 g/dL 06/25/2015 Comp Metabolic Jte333 GL OB 3.0 g/dL 06/25/2015 Comp Metabolic Ckm626 A/ G Ratio 1.5 Ratio 06/25/2015 Comp Metabolic Jzx086 Os mo 272 mOsmo 06/25/2015 Tsh Ord6 hTSH II 3.03 uIU/mL 06/25/2015 Lipid Ord30 CHOL 150 mg/dL 06/22/2015 Lipid Ord30 HDL 34.0 mg/dl 06/22/2015 Lipid Ord30 TRIG 149 mg/dL 06/22/2015 Lipid Ord30 LDL 86 mg/dL 06/22/2015 Lipid Ord30 C/HDL 4.4 Ratio 06/22/2015 Hepatic Clt478 ALBUMIN 4.3 g/dL 06/22/2015 Hepatic Clz821 TPRO 7.0 g/dL 06/22/2015 Hepatic Kcs519 GLOB 2.8 g/dL 06/22/2015 Hepatic Doc689 A/G Ratio 1.5 Ratio 06/22/2015 Hepatic Lbe128 ALK PHOS 65 U/L 06/22/2015 Hepatic Ldh878 ALT(SGPT) 33 U/L 06/22/2015 Hepatic Jew449 AST(SGOT) 28 U/L 06/22/2015 Hepatic Njm700 BILI T 0.5 mg/dL 06/22/2015 Hepatic Wor725 BILI D 0.1 mg/dL 06/22/2015 Hepatic Cqb619 BILI I 0.4 mg/dL 06/22/2015 Review of Systems System Result Effective Dates Constitutional No recent illness 01/13/2018 Constitutional No [...] otoscopic exam Left tympanic membrane: air-fluid le abgiail 03/17/2017 None Full Exam - ENT Ears/Nose/Throat [...] clear 12/24/2016 None Full Exam - General 1995 Ears/Nose/Throat oral cavity/pharynx/larynx Overall: hypopharynx benign 12/24/2016 [...] CPT-4: J3301 12/03/2017 THER/PROPH/DIAG INJ SC/IM CPT-4: 70113 12/03/2017 TRIAMCINOLONE ACET I [place] NOS CPT-4: J3301 06/24/2017 TRIAMCINOLONE ACET I [place] NOS CPT-4: J3301 03/17/2017 TRIAMCINOLONE ACET I [place] NOS CPT-4: J3301 11/18/2016 TRIAMCINOLONE ACET I [place] NOS CPT-4: J3301 03/24/2016 THER/PROPH/DIAG INJ SC/IM CPT-4: 42779 03/24/2016 TRIAMCINOLONE ACET I [place] NOS CPT-4: J3301 08/02/2015 OCCULT BLOOD FECES CPT- 4: 67833 08/03/2014 INITIAL PREVENTIVE EXAM CPT-4: G0402 07/31/2014 Vital Signs Date Vital 01/13/2018 Blood Pressure 1: 118/66 Code: 8480-6 BMI: 33.3 Code: 32705-4 Heart Rate 1: 57 bpm Height: 5'10" SpO2: 98% Waist Measure (cm): 97 cm Weight: 232 lbs 12/23/2017 Blood Pressure 1: 120/62 Code: 8480-6 BMI: 33.7 Code: 97356-3 Heart Rate 1: 58 bpm Height: 5'10" SpO2: 96% Weight: 235 lbs 06/24/2017 Blood Pressure 1: 136/74 Code: 8480-6 BMI: 38.7 Code: 08191-8 Heart Rate 1: 75 bpm Height: 5'10" SpO2: 98% Weight: 270 lbs 03/17/2017 Blood Pressure 1: 138/78 Code: 8480-6 Heart Rate 1: 65 bpm SpO2: 97% Temperature: 36.6 (C ) / 97.8 (F) 12/24/2016 Blood Pressure 1: 134/78 Code: 8480-6 BMI: 37.2 Code: 00077-9 Heart Rate 1: 56 bpm Height: 5'10" SpO2: 98% Weight: 259 lbs 11/18/2016 Blood Pressure 1: 130/72 Code: 8480-6 BMI: 37.3 Code: 49474-0 Heart Rate 1: 70 bpm Height: 5'10" SpO2: 95% Weight: 260 lbs 06/24/2016 Blood Pressure 1: 134/80 Code: 8480-6 BMI: 38.3 Code: 81254-8 Heart Rate 1: 66 bpm Height: 5'10" SpO2: 98% Weight: 267 lbs 05/20/2016 Blood Pressure 1: 138/82 Code: 8480-6 BMI: 37.4 Code: 07783-3 Heart Rate 1: 65 bpm Height: 5'10" SpO2: 100% Weight: 261 lbs 05/09/2016 Blood Pressure 1: 154/78 Code: 8480-6 Heart Rate 1: 82 bpm Height: SpO2: 89% Temperature: 36.2 (C ) / 97.2 (F) Weight: 04/28/2016 Blood Pressure 1: 112/62 Code: 8480-6 BMI: 37.9 Code: 31405-5 Heart Rate 1: 73 bpm Height: 5'10" SpO2: 94% Temperature: 37.2 (C ) / 98.9 (F) Weight: 264 lbs 04/04/2016 Blood Pressure 1: 150/86 Code: 8480-6 Blood Pressure 1: 148/86 Code: 8480-6 Heart Rate 1: 71 bpm SpO2: 95% SpO2: 93% Temperature: 37.2 (C ) / 99.0 (F) 03/28/2016 Blood Pressure 1: 156/74 Code: 8480-6 BMI: 38.0 Code: 16712-7 Heart Rate 1: 84 bpm Height: 5'10" SpO2: 95% Weight: 265 lbs 02/13/2016 Blood Pressure 1: 118/62 Code: 8480-6 BMI: 39.2 Code: 49662-9 Heart Rate 1: 65 bpm Height: 5'10" SpO2: 96% Weight: 273 lbs 08/02/2015 Blood Pressure 1: 150/82 Code: 8480-6 BMI: 38.3 Code: 41336-9 Heart Rate 1: 75 bpm Height: 5'10" SpO2: 93% Weight: 267 lbs 06/22/2015 Blood Pressure 1: 138/80 Code: 8480-6 BMI: 38.7 Code: 97993-5 Heart Rate 1: 76 bpm Height: 5'10" SpO2: 96% Weight: 270 lbs 07/31/2014 Blood Pressure 1: 138/70 Code: 8480-6 BMI: 37.7 Code: 80522-3 Heart Rate 1: 70 bpm Height: 5'10" Respiratory Rate: 20 bpm Weight: 263 lbs 03/20/2014 Blood Pressure 1: 142/80 Code: 8480-6 BMI: 37.7 Code: 92324-3 Heart Rate 1: 64 bpm Height: 5'10" Weight: 263 lbs 03/01/2014 Blood Pressure 1: 150/90 Code: 8480-6 Blood Pressure 2: 140/80 Code: 8480-6 BMI: 37.3 Code: 04447-3 Heart Rate 1: 56 bpm Height: 5'10" Weight: 260 lbs Functional Status No Functional Status data History of Present Illness Symptom Name Status Resu lt Effective Date Notes Annual Medicare Wellness Exam Depres ira (last [...] ago 04/28/2016 None cough Location in the [facility] 04/04/2016 None cough Location in the [...] Encounters Encounter Performer Loca tion Codes Date ([id number]) 13348 EST. P ATIENT, LEVEL IV Diagnosis: Essential (primary) hypertension[ICD10: I10] Diagnosis: Mixed hyperlipidemia[ICD10: E78.2] Diagnosis: Nonrheumatic aortic (valve) stenosis[ICD10: I35.0] Trina Camacho MD, [facility] CPT-4: 45567 12/23/2017 ([id number]) PER PM REEVA L EST PAT 65+ YR Diagnosis: Encounter for general adult medical examination with abnormal findings[ICD10: Z00.01] Trnia Camacho MD, [facility] CPT-4: 87700 06/24/2017 ([id number]) Patient adm itted to the hospital from clinic (NO CHARGE) Diagnosis: [ICD9: ] Diagnosis: Essential (primary) hypertension[ICD10: I10] Diagnosis: Other allergic rhinitis[ICD10: J30.89] Diagnosis: Cough[ICD10: R05] Diagnosis: Mixed hyperlipidemia[ICD10: E78.2] Trina Camacho MD, [facility] CPT- 4: 23551Y 06/24/2017 74848 EST. PATIENT, LEVEL IV Diagnosis: Other acute sinusitis[ICD10: J01.80] Diagnosis: Other allergic rhinitis[ICD10: J30.89] [facility] CPT-4: 26259 03/17/2017 ([id number]) 03052 EST. P ATIENT, LEVEL IV Diagnosis: Essential (primary) hypertension[ICD10: I10] Diagnosis: Mixed hyperlipidemia[ICD10: E78.2] [facility] CPT- 4: 31111 12/24/2016 28358 EST. PATIENT, LEVEL IV Diagnosis: Acute bronchitis due to other specified organisms[ICD10: J20.8] [facility] CPT-4: 06032 11/18/2016 ([id number]) 48109 EST. P ATIENT, LEVEL III Diagnosis: Essential (primary) hypertension[ICD10: I10] Trina Camacho MD, [facility] CPT-4: 79789 06/24/2016 ([id number]) 42216 EST. P ATIENT, LEVEL III Diagnosis: Essential (primary) hypertension[ICD10: I10] Diagnosis: Cough[ICD10: R05] Diagnosis: Candidal stomatitis[ICD10: B37.0] Trina Camacho MD, [facility] CPT-4: 50196 05/20/2016 ([id number]) Patient adm itted to the hospital from clinic (NO CHARGE) Diagnosis: Pneumonia, unspecified organism[ICD10: J18.9] Diagnosis: Cough[ICD10: R05] Trina Camacho MD, [facility] CPT-4: 53173V 05/09/2016 24490 EST. PATIENT, LEVEL III Diagnosis: Acute laryngopharyngitis[ICD10: J06.0] Diagnosis: Cough[ICD10: R05] Lulu Camacho MD, [facility] CPT-4: 73078 04/28/2016 ([id number]) 08175 EST. P ATIENT, LEVEL III Diagnosis: Cough[ICD10: R05] Diagnosis: Essential (primary) hypertension[ICD10: I10] Susu Camacho MD, [facility] CPT-4: 31950 04/04/2016 ([id number]) 79254 EST. P ATIENT, LEVEL III Diagnosis: Cough[ICD10: R05] Diagnosis: Pneumonia, unspecified organism[ICD10: J18.9] Susu Camacho MD, [facility] CPT-4: 14801 03/28/2016 11793 EST. PATIENT, LEVEL IV Diagnosis: Other allergic rhinitis[ICD10: J30.89] Diagnosis: Other acute sinusitis[ICD10: J01.80] [facility] CPT- 4: 23307 02/13/2016 13555 EST. PATIENT, LEVEL IV Diagnosis: Acute bronchitis due to other specified organisms[ICD10: J20.8] Diagnosis: Other acute sinusitis[ICD10: J01.80] Diagnosis: Other allergic rhinitis[ICD10: J30.89] [facility] CPT-4: 77185 08/02/2015 ([id number]) 85124 EST. P ATIENT, LEVEL IV Diagnosis: Essential (primary) hypertension[ICD10: I10] Diagnosis: Mixed hyperlipidemia[ICD10: E78.2] Diagnosis: Impaired fasting glucose[ICD10: R73.01] Susu Camacho MD, [facility] CPT-4: 61449 06/22/2015 ([id number]) 57321 EST. P ATIENT, LEVEL IV Diagnosis: ESSENTIAL HYPERTENSION[ICD9: 401.9] Diagnosis: Aortic stenosis[ICD9: 424.1] Diagnosis: Hyperlipidemia[ICD9: 272.4] Trina Camacho MD, [facility] CPT-4: 66833 03/20/2014 ([id number]) OFFICE [facility]IS[facility] - LEVEL 4 Diagnosis: ESSENTIAL HYPERTENSION[ICD9: 401.9] Diagnosis: DIABETES TYPE II[ICD9: 250.00] Diagnosis: Heart murmur[ICD9: 785.2] Diagnosis: Snoring[ICD9: 786.09] Diagnosis: Sleep-disordered breathing[ICD9: 780.59] Trina Camacho MD, [facility] CPT-4: 76005 03/01/2014 Plan of Care Planned Activity Notes C odes Status Date Visit Plan: Medicare Exam - today w [...] increased activity 12/23/2017 Appointment: [facility] [place] (15 min) Moderate 12/23/2017 [...] inhales bid. 06/24/2017 Appointment: Trina Camacho WPtel[facility] (15 min) Moderate 06/24/2017 Patient Education: Patient [...] the nasal steroid allergy spray. 03/17/2017 Appointment: Luul Mann WPtel: [phone] [facility] (15 min) Moderate 03/17/2017 Patient Education: [...] medications. 12/24/2016 Appointment: Trina Camacho WPtel: [phone] [facility] (15 min) Moderate 12/24/2016 Patient [...] worsen. 11/18/2016 Appointment: [phone] [id number] (30 min) Complex 11/18/2016 Patient Education: [...] Trina Camacho WPtel: [facility] (15 min) Moderate 06/24/2016 Patient [...] and swallow 05/20/2016 Appointment: Trina Camacho WPtel: [phone] (15 min) Moderate 05/20/2016 Patient [...] Susu Mills WPtel: [phone] [place] (15 min) Moderate 05/09/2016 Patient Education: Patient Medication Summary Completed 05/09/2016 Visit Plan: URI - Pt advised to inc rease fluids, vitamin C. Discussed natural and expected course of this diagnosis and need to alert me if symptoms do not follow expected course, or if any worse. RX sent to patient's pharmacy. 04/28/2016 Appointment: Lulu Mann WPtel: [phone] (15 min) Moderate 04/28/2016 Patient Education: [...] verbalized understanding. 04/04/2016 Appointment: Susu Mills WPtel: [phone] (10 min) Simple 04/04/2016 Patient Education: Patient Medication Summary Completed 04/04/2016 Patient Education: Hypertension Completed 04/04/2016 Visit Plan: Pneumonia-cough- improv ing-finish abx and call if symptoms do not completely resolved-patient verbalized understanding of plan. 03/28/2016 Appointment: Susu Mills WPtel: [facility] [phone] (30 min) Complex 03/28/2016 Patient Education: Patient Medication Summary Completed 03/28/2016 Patient Education: Obesity Completed 03/28/2016 Visit Plan: Cough-kenalog injection today-start abx as directed-f/u , sooner if needed 03/24/2016 Appointment: Susu Mills WPtel: [phone] (10 min) Simple 03/24/2016 Patient Education: [...] show improvement. 02/13/2016 Appointment: Susu Mills WPtel: [phone] (15 min) Moderate 02/13/2016 Patient Education: Patient [...] allergy spray. 08/02/2015 Appointment: Lulu Mann WPtel: [address] [place], [place] [id number] (15 min) Moderate 08/02/2015 Patient Education: Patient [...] Patient Medication Summary Completed 07/31/2014 Patient Education: [facility] - [employer]aving [employer] - Lisinopril - 18+ - Dynamic Portal ID Completed 07/31/2014 Visit Plan: JUT-nzglpnlh-vqboe slig htly elevated-patient tolerated lisinopril 5mg BID well, did not tolerate 10mg daily in the past. Recommend he monitor blood pressure and pulse at home and bring in readings for review. Aortic Stenosis-recommend stress test-refer to Dr Avilez for evaluation Hyperlipidemia-continue statin medication-increase exercise and weight loss-low fat diet. Repeat labs in 3-6 months-Patient verbalized understanding of plan. 03/20/2014 Visit Plan: XDT-wkpnvyrj-xhgzx slig htly elevated-patient tolerated lisinopril 5mg BID well, did not tolerate 10mg daily in the past. Recommend he monitor blood pressure and pulse at home and bring in readings for review. Aortic Stenosis-recommend stress test-refer to Dr Avilez for evaluation Hyperlipidemia-continue statin medication-increase exercise and weight loss-low fat diet. Repeat labs in 3-6 months-Patient verbalized understanding of plan. Daytime jjuuyxglqte-uoaqlln-uskwwbb-refer for sleep study 03/20/2014 Appointment: Follow up 03/20/2014 Patient Education: Patient Medication Summary Completed 03/20/2014 Care Plan: Referral Order SNOMED-CT : [id number] Ordered 03/20/2014 Visit Plan: Hypertension - uncontro [...] previous physician. 03/01/2014 Appointment: Trina Camacho WPtel: [address] [place], [place] [id number] New Patient 03/01/2014 Patient Education: Patient Medication Summary Completed 03/01/2014 Patient Education: Hypertension Completed 03/01/2014 Referral: Dr Avilez Referral Initiated Instructions Comment . TST-zrjgedwo-ukchr slightly elevated-patient tolerated lisinopril 5mg BID well, did not tolerate 10mg daily in the past. Recommend he monitor blood pressure and pulse at home and bring in readings for review. Aortic Stenosis-recommend stress test-refer to Dr Avilez for evaluation Hyperlipidemia-continue statin medication-increase exercise and weight loss-low fat diet. Repeat labs in 3-6 months-Patient verbalized understanding of plan. . XGG-wonkarum-hecea slightly elevated-patient tolerated lisinopril 5mg BID well, did not tolerate 10mg daily in the past. Recommend he monitor blood pressure and pulse at home and bring in readings for review. Aortic Stenosis-recommend stress test-refer to Dr Avilez for evaluation Hyperlipidemia-continue statin medication-increase exercise and weight loss-low fat diet. Repeat labs in 3-6 months-Patient verbalized understanding of plan. Daytime ncboxmbnphf-doziijg-huyxzcj-refer for sleep study . Allergies - chroni [...] if symptoms do not show improvement. . Medicare Exam - to day we [...] [employer] paperwork for health care surrogate. . Pneumonia-cough- i mproving-finish abx and call if symptoms do not completely resolved-patient verbalized understanding of plan. Let me know [...] with dietary changes and increased activity . HTN-no well contro lled-monitor over the [...]
--- OUTSIDE RECORDS SUMMARY | 2019-03-16 12:47 | XMS REPORT | CCD ---
Author Author Farshad Camacho Organization Trina Camacho MD, [facility] Address [address] [place] [address] Phone Care Team Providers Care Tobacco Sampler Name Role Phone PP Unavailable CCM Unavailable Summary Purpose Interface Exchange Insurance Providers Payer name Policy type / Coverage type Covered alliance party ID Effective Begin Date Effective End Date WPS Medicare Part B Medicare Part B [id number] Unknown Cigna Medicare Part B 80 [id number] Unknown Family history Brother Diagnosis Age At Onset lung cancer Unknown Alcoholism Unknown Mother Diagnosis Age At Onset Cancer Unknown Pancratic cancer Unknown Arthritis Unknown Father Diagnosis Age At Onset Alcoholism Unknown Social History Social History Element Codes Description Effective Dates Marital status Unknown M alberto Rice 03/01/2014 Number of children Unknown 3 and 3 step 03/01/[address]: 7053350 Former smoker quit 199603/01/2014 Allergies, Adverse Reactions, Alerts Substance Reaction Codes Entered Date Inactivated Date Status Seasonal Unknown 03/01/2014 No In active Date Active NATO INHIBITORS Unknown 05/13/2016 No In active Date Active ibuprofen RxNorm: 5640 07/31/2014 No Inactive Date Active Penicillin hives Unknown 03/01/2014 No In active Date Active Past Medical History Illness Codes Condition Status Onset Date Resolved Date Encounter for [facility] adult medical examination with abnormal findings [...] mc g-50 mcg/dose powder for inhalation RxNorm: 0179019 1 Puff(s) INH BID 12/29/2017 No Stop Date Active Zithromax Z-Poncho 250 mg tablet RxNorm: 893697 1 Tablet(s) PO UD 12/29/2017 01/02/2018 Inactive bj Spann 100 mg capsule RxNorm: 444645 1-2 Capsule(s) PO TID as needed 12/29/2017 01/02/2018 In active allopurinol 300 mg t ablet RxNorm: 067412 Tablet(s) TAKE ONE TA BLET BY MOUTH ONCE DAILY 12/10/2017 No Stop Date Active Kenalog 40 mg/mL [employer] pension for injection RxNorm: 6833078 1.5 Milliliter(s) In j 12/03/2017 12/03/2017 In active allopurinol 300 mg t ablet RxNorm: 082454 TAKE ONE TABLET BY MO UTH ONCE DAILY 09/08/2017 12/09/2017 In active allopurinol 300 mg t ablet RxNorm: 364073 TAKE ONE TABLET BY MO UTH ONCE DAILY 06/15/2017 09/07/2017 In active Keflex 500 mg capsule RxNorm: 341613 1 Capsule(s) PO TID 05/04/2017 05/13/2017 Inactive Kenalog 40 mg/mL russell pension for injection RxNorm: 3824725 1 Milliliter(s) Inj 03/17/2017 03/17/2017 In active Keflex 500 mg capsule RxNorm: 086928 1 Capsule(s) PO TID 03/13/2017 03/12/2017 Inactive Keflex 500 mg capsule RxNorm: 036627 1 Capsule(s) PO TID 03/13/2017 03/22/2017 Inactive prednisone 10 mg tablet RxNorm: 742404 Tablet(s) PO UD start on 11/1911/18/2016 12/23/2016 Inactive 60,50,40,30,20,10 Advair Diskus 250 mc g-50 mcg/dose powder for inhalation RxNorm: 0348377 1 Puff(s) INH BID 11/18/2016 12/28/2017 Inactive doxycycline hyclate 100 mg capsule RxNorm: 4795157 1 Capsule(s) PO BID 11/18/2016 11/27/2016 In active Kenalog 40 mg/mL r[employer]ell pension for injection RxNorm: 9530740 Milliliter(s) Inj 11/18/2016 11/18/2016 In active nystatin 100,000 uni t/mL oral suspension RxNorm: 232106 5 Milliliter(s) PO QI D 05/20/2016 05/29/2016 In active allopurinol 300 mg t ablet RxNorm: 504818 TAKE ONE TABLET BY [facility] ONCE DAILY 05/11/2016 05/05/2017 In active Tessalon Perles 100 mg capsule RxNorm: 211743 1-2 Capsule(s) PO TID as needed 04/29/2016 05/03/2016 In active Prilosec OTC 20 mg t ablet,delayed release RxNorm: 764690 Tablet(s) PO 04/28/2016 11/16/2016 In active doxycycline hyclate 100 mg capsule RxNorm: 5534110 1 Capsule(s) PO BID 04/28/2016 05/07/2016 In active Tamiflu 75 mg capsule RxNorm: 092625 1 Capsule(s) PO BID 04/07/2016 04/11/2016 Inactive Tamiflu 75 mg capsule RxNorm: 849340 1 Capsule(s) PO BID 04/07/2016 04/06/2016 Inactive prednisone 20 mg tablet RxNorm: 922829 1 Tablet(s) PO BID 04/04/2016 04/08/2016 Inactive Kenalog 40 mg/mL russell pension for injection RxNorm: 0367644 1 Milliliter(s) Inj 03/24/2016 03/24/2016 In active cefdinir 300 mg capsule RxNorm: 038708 1 Capsule(s) PO BID 03/24/2016 03/30/2016 Inactive Zithromax Z-Poncho 250 mg tablet RxNorm: 093426 1 Tablet(s) PO UD 03/24/2016 03/28/2016 Inactive zpack cefdinir 300 mg capsule RxNorm: 428998 1 Capsule(s) PO BID 03/24/2016 03/23/2016 Inactive Flonase Allergy Reli ef 50 mcg/actuation nasal spray,suspension RxNorm: 7499521 1 [place] NASAL BID 02/13/2016 No Stop Date Active doxycycline hyclate 100 mg capsule RxNorm: 0769566 1 Capsule(s) PO BID 02/13/2016 02/19/2016 In active lisinopril 5 mg tablet RxNorm: 256637 1 Tablet(s) PO BID TAKE ONE TABLET BY [facility] TWICE DAILY 11/20/2015 05/12/2016 Inactive hold until patient calls fo r refill doxycycline hyclate 100 mg capsule RxNorm: 1818572 1 Capsule(s) PO BID 08/02/2015 08/08/2015 In active Kenalog 40 mg/mL russell pension for injection RxNorm: 4215901 Milliliter(s) Inj 08/02/2015 08/02/2015 In active lisinopril 5 mg tablet RxNorm: 634182 TAKE ONE TABLET BY MOUTH TWICE DAILY 06/11/2015 11/19/2015 In active allopurinol 300 mg t ablet RxNorm: 550804 1 Tablet(s) PO daily 05/08/2015 05/01/2016 Inactive lisinopril 5 mg tablet RxNorm: 477933 1 Tablet(s) PO BID 01/30/2015 05/29/2015 Inactive [AttnRPh: Saving apply/adjudicate RxGRP:SG20 RxBIN:[id number] RxPCN: ID#:[id number]] Zithromax Z-Poncho 250 mg tablet RxNorm: 791574 1 Tablet(s) PO UD 01/10/2015 03/23/2016 Inactive zpack allopurinol 300 mg t ablet RxNorm: 737382 1 Tablet(s) PO daily 10/31/2014 04/28/2015 Inactive lisinopril 5 mg tablet RxNorm: 856542 1 Tablet(s) PO BID 07/31/2014 11/27/2014 Inactive [AttnRPh: Saving apply/adjudicate RxGRP:SG20 RxBIN:[id number] RxPCN: ID#:[id number]] allopurinol 300 mg t ablet RxNorm: 540024 1 Tablet(s) PO daily 05/17/2014 10/30/2014 Inactive lisinopril 5 mg tablet RxNorm: 002916 1 Tablet(s) PO BID 03/01/2014 06/28/2014 Inactive [SAVINGS FOR UNINSURED PATIENTS -- BIN:[id number], PCN: [id number], Group: [id number], ID# [id number], Process claim through [employer], for questions: . THIS IS NOT INSURANCE.] Fish Oil 1,000 mg ca psule RxNorm: 3 Capsule(s) PO daily No Start Date Active B Complex 1 oral RxNorm: 43360 oral No Start Date Active Vitamin D3 1,000 uni t capsule RxNorm: 595004 2 Capsule(s) PO daily No Start Date Active Zyrtec 10 mg capsule RxNorm: 1994045 1 Capsule(s) PO daily No Start Date Active fenofibrate nanocrys tallized 48 mg tablet RxNorm: 112284 1 Tablet(s) PO daily No Start Date Active metoprolol tartrate 25 mg tablet RxNorm: 877719 1 Tablet(s) PO daily No Start Date Active multivitamin tablet RxNorm: 1 Tablet(s) PO daily No Start Date Active pravastatin 40 mg ta blet RxNorm: 770911 1 Tablet(s) PO daily No Start Date Active Tessalon Perles 100 mg capsule RxNorm: 956582 1-2 Capsule(s) PO TID as needed No Start Date 04/28/2016 Inactive allopurinol 300 mg t ablet RxNorm: 557358 1 Tablet(s) PO daily No Start Date 05/16/2014 Inactive metformin 500 mg tablet RxNorm: 709864 1 Tablet(s) PO BID No Start Date 02/14/2014 Inactive pioglitazone 15 mg t ablet RxNorm: 188038 1 Tablet(s) PO daily No Start Date 07/30/2014 Inactive lisinopril 5 mg tablet RxNorm: 660039 1 Tablet(s) PO daily No Start Date 02/28/2014 Inactive losartan 25 mg tablet RxNorm: 833760 1/2 Tablet(s) PO daily No Start Date 01/12/2018 Inactive Zithromax Z-Poncho 250 mg tablet RxNorm: 221144 1 Tablet(s) PO UD No Start Date 01/09/2015 Inactive [employer] Medication Administered Medication Codes Instruc tions Start Date Status Kenalog 40 mg/mL suspension for injection RxNorm: 1209352 1.5Milliliter 12/03/2017 No longer Active Kenalog 40 mg/mL suspension for injection RxNorm: 6562879 1Milliliter 03/17/2017 N o longer Active Kenalog 40 mg/mL suspension for injection RxNorm: 4841220 Milliliter 11/18/2016 No longer Active Kenalog 40 mg/mL suspension for injection RxNorm: 0411522 1Milliliter 03/24/2016 N o longer Active Kenalog 40 mg/mL suspension for injection RxNorm: 7085116 Milliliter 08/02/2015 No longer Active Immunizations Vaccine [...] Item Item Code Result Date Comp Metabolic Sum239 NA 136 mEq/L 12/22/2017 Comp Metabolic Ypo026 K 4.2 mEq/L 12/22/2017 Comp Metabolic Qwc272 CL 105 mEq/L 12/22/2017 Comp Metabolic Nwr119 CO2 30.0 mEq/L 12/22/2017 Comp Metabolic Pgx004 AN ION GAP 5 12/22/2017 Comp Metabolic Xyd710 GL UCOSE 85 mg/dL 12/22/2017 Comp Metabolic Pef614 Cr eat 1.2 mg/dL 12/22/2017 Comp Metabolic Trc696 eG FR 62 ml/min/1.73m2 12/22 Comp Metabolic Mui410 BUN 17 mg/dL 12/22/2017 Comp Metabolic Qvk364 B/ C Ratio 13.9 Ratio 12/22/2017 Comp Metabolic Pie023 CA LCIUM 9.3 mg/dL 12/22/2017 Comp Metabolic Xbf702 AL K PHOS 78 U/L 12/22/2017 Comp Metabolic Qkt523 T(SGOT) 24 U/L 12/22/2017 Comp Metabolic Yei047 AL T(SGPT) 28 U/L 12/22/2017 Comp Metabolic Bkv789 BI LI T 0.5 mg/dL 12/22/2017 Comp Metabolic Xhs567 AL BUMIN 4.0 g/dL 12/22/2017 Comp Metabolic Uxv333 TP RO 6.6 g/dL 12/22/2017 Comp Metabolic Fka073 GL OB 2.6 g/dL 12/22/2017 Comp Metabolic Pwz022 A/ G Ratio 1.6 Ratio 12/22/2017 Comp Metabolic Hwi652 Os mo 273 mOsmo 12/22/2017 Cbc With [...] 31.9 pg 12/22/2017 Cbc With Differential Ord2 [place]% 6.3 % 12/22/2017 Cbc With Differential Ord2 [...] 1.92 K/ul 12/22/2017 Cbc With Differential Ord2 [place] ABS# 0.6 K/ul 12/22/2017 Cbc With Differential Ord2 Eos ABS# 0.3 K/ul 12/22/2017 Cbc With Differential Ord2 Baso ABS# 0.0 K/ul 12/22/2017 Comp Metabolic Uxb659 NA 135 mEq/L 06/22/2017 Comp Metabolic Kdo336 K 4.2 mEq/L 06/22/2017 Comp Metabolic Bmy714 CL 101 mEq/L 06/22/2017 Comp Metabolic Dyz059 CO2 27.0 mEq/L 06/22/2017 Comp Metabolic Zhe879 AN ION GAP 11 06/22/2017 Comp Metabolic Gtd858 GL UCOSE 89 mg/dL 06/22/2017 Comp Metabolic Bwq919 Cr eat 1.5 mg/dL 06/22/2017 Comp Metabolic Kwe170 eG FR 51 ml/min/1.73m2 06/22 Comp Metabolic Cny941 BUN 16 mg/dL 06/22/2017 Comp Metabolic Mwn990 B/ C Ratio 11.0 Ratio 06/22/2017 Comp Metabolic Vfx448 CA LCIUM 8.9 mg/dL 06/22/2017 Comp Metabolic Fqn636 AL K PHOS 79 U/L 06/22/2017 Comp Metabolic Ddf911 T(SGOT) 26 U/L 06/22/2017 Comp Metabolic Lwi170 AL T(SGPT) 26 U/L 06/22/2017 Comp Metabolic Bap030 BI LI T 0.4 mg/dL 06/22/2017 Comp Metabolic Hkp628 AL BUMIN 4.1 g/dL 06/22/2017 Comp Metabolic Wew285 TP RO 6.9 g/dL 06/22/2017 Comp Metabolic Tjs890 GL OB 2.8 g/dL 06/22/2017 Comp Metabolic Xcf614 A/ G Ratio 1.5 Ratio 06/22/2017 Comp Metabolic Hax564 Os mo 271 mOsmo 06/22/2017 Cbc With [...] 95.9 fl 06/22/2017 Cbc With Differential Ord2 [place]% 7.9 % 06/22/2017 Cbc With Differential Ord2 [...] 2.14 K/ul 06/22/2017 Cbc With Differential Ord2 [place] ABS# 0.8 K/ul 06/22/2017 Cbc With Differential [...] 33.2 pg 12/25/2015 Cbc With Differential Ord2 [place]% 7.6 % 12/25/2015 Cbc With Differential Ord2 [...] 1.86 K/ul 12/25/2015 Cbc With Differential Ord2 [place] ABS# 0.6 K/ul 12/25/2015 Cbc With Differential Ord2 Eos ABS# 0.2 K/ul 12/25/2015 Cbc With Differential Ord2 Baso ABS# 0.1 K/ul 12/25/2015 Comp Metabolic Ker043 NA 136 mEq/L 12/25/2015 Comp Metabolic Gkz844 K 4.2 mEq/L 12/25/2015 Comp Metabolic Abe321 CL 104 mEq/L 12/25/2015 Comp Metabolic Ntn781 CO2 26.0 mEq/L 12/25/2015 Comp Metabolic Blp195 AN ION GAP 10 12/25/2015 Comp Metabolic Esf640 GL UCOSE 104 mg/dL 12/25/2015 Comp Metabolic Roc061 Cr eat 1.3 mg/dL 12/25/2015 Comp Metabolic Tml883 eG FR 59 ml/min/1.73m2 12/24 Comp Metabolic Xpm025 BUN 23 mg/dL 12/25/2015 Comp Metabolic Ffv357 B/ C Ratio 18.0 Ratio 12/25/2015 Comp Metabolic Oei043 CA LCIUM 9.1 mg/dL 12/25/2015 Comp Metabolic Fso440 AL K PHOS 76 U/L 12/25/2015 Comp Metabolic Lrj701 T(SGOT) 30 U/L 12/25/2015 Comp Metabolic Xfp613 AL T(SGPT) 28 U/L 12/25/2015 Comp Metabolic Sto902 BI LI T 0.3 mg/dL 12/25/2015 Comp Metabolic Ktn275 AL BUMIN 4.0 g/dL 12/25/2015 Comp Metabolic Uud680 TP RO 6.6 g/dL 12/25/2015 Comp Metabolic Dsf189 GL OB 2.6 g/dL 12/25/2015 Comp Metabolic Gay073 A/ G Ratio 1.5 Ratio 12/25/2015 Comp Metabolic Jei900 Os mo 276 mOsmo 12/25/2015 Cbc With [...] 32.4 pg 06/25/2015 Cbc With Differential Ord2 [place]% 7.1 % 06/25/2015 Cbc With Differential Ord2 [...] 2.18 K/ul 06/25/2015 Cbc With Differential Ord2 [place] ABS# 0.7 K/ul 06/25/2015 Cbc With Differential Ord2 Eos ABS# 0.2 K/ul 06/25/2015 Cbc With Differential Ord2 Baso ABS# 0.0 K/ul 06/25/2015 Cbc With Differential Ord2 New Analyzer Notice Please note new ref ranges s tarting 03-28-2015 due to implemntation of new five part differential hematolgy analyzer. 06/25/2015 %Hba1C Bsh656 % HbA1c 34446-5 6.1 % 06/25/2015 %Hba1C Flv749 Gluc Ave 128 mg/dL 06/25/2015 Comp Metabolic Jrc457 NA 135 mEq/L 06/25/2015 Comp Metabolic Vnn185 K 4.3 mEq/L 06/25/2015 Comp Metabolic Xmp647 CL 102 mEq/L 06/25/2015 Comp Metabolic Lih559 CO2 26.0 mEq/L 06/25/2015 Comp Metabolic Qzx479 AN ION GAP 11 06/25/2015 Comp Metabolic Lcr899 GL UCOSE 81 mg/dL 06/25/2015 Comp Metabolic Wxu894 Cr eat 1.5 mg/dL 06/25/2015 Comp Metabolic Iik615 eG FR 49 ml/min/1.73m2 06/24 Comp Metabolic Cbf653 BUN 20 mg/dL 06/25/2015 Comp Metabolic Eki893 B/ C Ratio 13.2 Ratio 06/25/2015 Comp Metabolic Fqj828 CA LCIUM 9.5 mg/dL 06/25/2015 Comp Metabolic Uzz231 AL K PHOS 65 U/L 06/25/2015 Comp Metabolic Blm233 T(SGOT) 25 U/L 06/25/2015 Comp Metabolic Jpc039 AL T(SGPT) 29 U/L 06/25/2015 Comp Metabolic Nol854 BI LI T 0.4 mg/dL 06/25/2015 Comp Metabolic Wbk502 AL BUMIN 4.4 g/dL 06/25/2015 Comp Metabolic Xzb682 TP RO 7.3 g/dL 06/25/2015 Comp Metabolic Sqj610 GL OB 3.0 g/dL 06/25/2015 Comp Metabolic Gyj776 A/ G Ratio 1.5 Ratio 06/25/2015 Comp Metabolic Sxg645 Os mo 272 mOsmo 06/25/2015 Tsh Ord6 hTSH II 3.03 uIU/mL 06/25/2015 Lipid Ord30 CHOL 150 mg/dL 06/22/2015 Lipid Ord30 HDL 34.0 mg/dl 06/22/2015 Lipid Ord30 TRIG 149 mg/dL 06/22/2015 Lipid Ord30 LDL 86 mg/dL 06/22/2015 Lipid Ord30 C/HDL 4.4 Ratio 06/22/2015 Hepatic Ubk384 ALBUMIN 4.3 g/dL 06/22/2015 Hepatic Tea287 TPRO 7.0 g/dL 06/22/2015 Hepatic Xld799 GLOB 2.8 g/dL 06/22/2015 Hepatic Zws764 A/G Ratio 1.5 Ratio 06/22/2015 Hepatic Xpa350 ALK PHOS 65 U/L 06/22/2015 Hepatic Ihj475 ALT(SGPT) 33 U/L 06/22/2015 Hepatic Xzr246 AST(SGOT) 28 U/L 06/22/2015 Hepatic Rfs020 BILI T 0.5 mg/dL 06/22/2015 Hepatic Bjg212 BILI D 0.1 mg/dL 06/22/2015 Hepatic Ixr584 BILI I 0.4 mg/dL 06/22/2015 Review of [...] CPT-4: J3301 12/03/2017 THER/PROPH/DIAG INJ SC/IM CPT-4: 10278 12/03/2017 TRIAMCINOLONE ACET I [place] NOS CPT-4: J3301 06/24/2017 TRIAMCINOLONE ACET I [place] NOS CPT-4: J3301 03/17/2017 TRIAMCINOLONE ACET I [place] NOS CPT-4: J3301 11/18/2016 TRIAMCINOLONE ACET I [place] NOS CPT-4: J3301 03/24/2016 THER/PROPH/DIAG INJ SC/IM CPT-4: 89020 03/24/2016 TRIAMCINOLONE ACET I [place] NOS CPT-4: J3301 08/02/2015 OCCULT BLOOD FECES CPT- 4: 23873 08/03/2014 INITIAL PREVENTIVE EXAM CPT-4: G0402 07/31/2014 Vital Signs Date Vital 01/13/2018 Blood Pressure 1: 118/66 Code: 8480-6 BMI: 33.3 Code: 27579-2 Heart Rate 1: 57 bpm Height: 5'10" SpO2: 98% Waist Measure (cm): 97 cm Weight: 232 lbs 12/23/2017 Blood Pressure 1: 120/62 Code: 8480-6 BMI: 33.7 Code: 51565-5 Heart Rate 1: 58 bpm Height: 5'10" SpO2: 96% Weight: 235 lbs 06/24/2017 Blood Pressure 1: 136/74 Code: 8480-6 BMI: 38.7 Code: 79175-4 Heart Rate 1: 75 bpm Height: 5'10" SpO2: 98% Weight: 270 lbs 03/17/2017 Blood Pressure 1: 138/78 Code: 8480-6 Heart Rate 1: 65 bpm SpO2: 97% Temperature: 36.6 (C ) / 97.8 (F) 12/24/2016 Blood Pressure 1: 134/78 Code: 8480-6 BMI: 37.2 Code: 27607-1 Heart Rate 1: 56 bpm Height: 5'10" SpO2: 98% Weight: 259 lbs 11/18/2016 Blood Pressure 1: 130/72 Code: 8480-6 BMI: 37.3 Code: 93726-3 Heart Rate 1: 70 bpm Height: 5'10" SpO2: 95% Weight: 260 lbs 06/24/2016 Blood Pressure 1: 134/80 Code: 8480-6 BMI: 38.3 Code: 30902-6 Heart Rate 1: 66 bpm Height: 5'10" SpO2: 98% Weight: 267 lbs 05/20/2016 Blood Pressure 1: 138/82 Code: 8480-6 BMI: 37.4 Code: 22594-4 Heart Rate 1: 65 bpm Height: 5'10" SpO2: 100% Weight: 261 lbs 05/09/2016 Blood Pressure 1: 154/78 Code: 8480-6 Heart Rate 1: 82 bpm Height: SpO2: 89% Temperature: 36.2 (C ) / 97.2 (F) Weight: 04/28/2016 Blood Pressure 1: 112/62 Code: 8480-6 BMI: 37.9 Code: 15489-6 Heart Rate 1: 73 bpm Height: 5'10" SpO2: 94% Temperature: 37.2 (C ) / 98.9 (F) Weight: 264 lbs 04/04/2016 Blood Pressure 1: 150/86 Code: 8480-6 Blood Pressure 1: 148/86 Code: 8480-6 Heart Rate 1: 71 bpm SpO2: 93% SpO2: 95% Temperature: 37.2 (C ) / 99.0 (F) 03/28/2016 Blood Pressure 1: 156/74 Code: 8480-6 BMI: 38.0 Code: 02168-9 Heart Rate 1: 84 bpm Height: 5'10" SpO2: 95% Weight: 265 lbs 02/13/2016 Blood Pressure 1: 118/62 Code: 8480-6 BMI: 39.2 Code: 19201-1 Heart Rate 1: 65 bpm Height: 5'10" SpO2: 96% Weight: 273 lbs 08/02/2015 Blood Pressure 1: 150/82 Code: 8480-6 BMI: 38.3 Code: 39502-9 Heart Rate 1: 75 bpm Height: 5'10" SpO2: 93% Weight: 267 lbs 06/22/2015 Blood Pressure 1: 138/80 Code: 8480-6 BMI: 38.7 Code: 71308-1 Heart Rate 1: 76 bpm Height: 5'10" SpO2: 96% Weight: 270 lbs 07/31/2014 Blood Pressure 1: 138/70 Code: 8480-6 BMI: 37.7 Code: 27273-8 Heart Rate 1: 70 bpm Height: 5'10" Respiratory Rate: 20 bpm Weight: 263 lbs 03/20/2014 Blood Pressure 1: 142/80 Code: 8480-6 BMI: 37.7 Code: 72098-0 Heart Rate 1: 64 bpm Height: 5'10" Weight: 263 lbs 03/01/2014 Blood Pressure 1: 150/90 Code: 8480-6 Blood Pressure 2: 140/80 Code: 8480-6 BMI: 37.3 Code: 36651-8 Heart Rate 1: 56 bpm Height: 5'10" [...] 04/28/2016 None cough Location in the [facility] 04/04/2016 None cough Location in the roat [...] Encounters Encounter Performer Loca tion Codes Date ([id number]) [id number] EST. P ATIENT, LEVEL IV Diagnosis: Essential (primary) hypertension[ICD10: I10] Diagnosis: Mixed hyperlipidemia[ICD10: E78.2] Diagnosis: Nonrheumatic aortic (valve) stenosis[ICD10: I35.0] Trina Camacho MD, [facility] CPT-4: 98035 12/23/2017 ([id number]) PER PM REEVA L EST PAT 65+ YR Diagnosis: Encounter for general adult medical examination with abnormal findings[ICD10: Z00.01] Trina Camacho MD, [facility] CPT-4: 41161 06/24/2017 ([id number]) Patient adm itted to the hospital from clinic (NO CHARGE) Diagnosis: [ICD9: ] Diagnosis: Essential (primary) hypertension[ICD10: I10] Diagnosis: Other allergic rhinitis[ICD10: J30.89] Diagnosis: Cough[ICD10: R05] Diagnosis: Mixed hyperlipidemia[ICD10: E78.2] Trina Camacho MD, [facility] CPT- 4: 00825Y 06/24/2017 89410 EST. PATIENT, LEVEL IV Diagnosis: Other acute sinusitis[ICD10: J01.80] Diagnosis: Other allergic rhinitis[ICD10: J30.89] [facility] CPT-4: 52250 03/17/2017 ([id number]) 91198 EST. P ATIENT, LEVEL IV Diagnosis: Essential (primary) hypertension[ICD10: I10] Diagnosis: Mixed hyperlipidemia[ICD10: E78.2] [facility] CPT- 4: 30106 12/24/2016 [id number] EST. PATIENT, LEVEL IV Diagnosis: Acute bronchitis due to other specified organisms[ICD10: J20.8] [facility] CPT-4: 86065 11/18/2016 ([id number]) 32150 EST. P ATIENT, LEVEL III Diagnosis: Essential (primary) hypertension[ICD10: I10] Trina Camacho MD, [facility] CPT-4: 68276 06/24/2016 ([id number]) 75899 EST. P ATIENT, LEVEL III Diagnosis: Essential (primary) hypertension[ICD10: I10] Diagnosis: Cough[ICD10: R05] Diagnosis: Candidal stomatitis[ICD10: B37.0] Trina Camacho MD, [facility] CPT-4: 93557 05/20/2016 ([id number]) Patient adm itted to the hospital from clinic (NO CHARGE) Diagnosis: Pneumonia, unspecified organism[ICD10: J18.9] Diagnosis: Cough[ICD10: R05] Trina Camacho MD, [facility] CPT-4: 06222E 05/09/2016 75631 EST. PATIENT, LEVEL III Diagnosis: Acute laryngopharyngitis[ICD10: J06.0] Diagnosis: Cough[ICD10: R05] Lulu Camacho MD, [facility] CPT-4: 26860 04/28/2016 ([id number]) 65264 EST. P ATIENT, LEVEL III Diagnosis: Cough[ICD10: R05] Diagnosis: Essential (primary) hypertension[ICD10: I10] Susu Camacho MD, [facility] CPT-4: 11770 04/04/2016 ([id number]) 31917 EST. P ATIENT, LEVEL III Diagnosis: Cough[ICD10: R05] Diagnosis: Pneumonia, unspecified organism[ICD10: J18.9] Susu Camacho MD, [facility] CPT-4: 81727 03/28/2016 59107 EST. PATIENT, LEVEL IV Diagnosis: Other allergic rhinitis[ICD10: J30.89] Diagnosis: Other acute sinusitis[ICD10: J01.80] [facility] CPT- 4: 64121 02/13/2016 55751 EST. PATIENT, LEVEL IV Diagnosis: Acute bronchitis due to other specified organisms[ICD10: J20.8] Diagnosis: Other acute sinusitis[ICD10: J01.80] Diagnosis: Other allergic rhinitis[ICD10: J30.89] [facility] CPT-4: 53455 08/02/2015 ([id number]) 90430 EST. P ATIENT, LEVEL IV Diagnosis: Essential (primary) hypertension[ICD10: I10] Diagnosis: Mixed hyperlipidemia[ICD10: E78.2] Diagnosis: Impaired fasting glucose[ICD10: R73.01] Susu Camacho MD, [facility] CPT-4: 02454 06/22/2015 ([id number]) 51993 EST. P ATIENT, LEVEL IV Diagnosis: ESSENTIAL HYPERTENSION[ICD9: 401.9] Diagnosis: Aortic stenosis[ICD9: 424.1] Diagnosis: Hyperlipidemia[ICD9: 272.4] Trina Camacho MD, [facility] CPT-4: 68313 03/20/2014 ([id number]) OFFICE VISI [facility] - LEVEL 4 Diagnosis: ESSENTIAL HYPERTENSION[ICD9: 401.9] Diagnosis: DIABETES TYPE II[ICD9: 250.00] Diagnosis: Heart murmur[ICD9: 785.2] Diagnosis: Snoring[ICD9: 786.09] Diagnosis: Sleep-disordered breathing[ICD9: 780.59] Trina Camacho MD, [facility] CPT-4: 27250 03/01/2014 Plan of Care Planned Activity Notes [...] Appointment: Trina Camacho [facility]Ptel[facility] [place] (15 min) Moderate 12/23/2017 Patient [...] Appointment: Trina Camacho WPtel: [facility] (15 min) Moderate 06/24/2017 Patient Education: [...] spray. 03/17/2017 Appointment: Lulu Mann WPtel: [phone] [facility] (15 min) Moderate 03/17/2017 Patient Education: [...] medications. 12/24/2016 Appointment: Trina Camacho WPtel: [phone] [facility] (15 min) Moderate 12/24/2016 Patient [...] worsen. 11/18/2016 [facility]ment[phone] (30 min) Complex 11/18/2016 Patient Education: Patient [...] Appointment: Trina Camacho WPtel: [facility] (15 min) Moderate 06/24/2016 Patient [...] Appointment: Trina Camacho WPtel: [facility] (15 min) Moderate 05/20/2016 Patient [...] Appointment: Susu Mills WPtel: [phone] [place] (15 min) Moderate 05/09/2016 Patient Education: Patient Medication Summary Completed 05/09/2016 Visit Plan: URI - Pt advised to inc rease fluids, vitamin C. Discussed natural and expected course of this diagnosis and need to alert me if symptoms do not follow expected course, or if any worse. RX sent to patient's pharmacy. 04/28/2016 Appointment: Lulu Mann WPtel: [facility] (15 min) Moderate 04/28/2016 Patient Education: [...] Appointment: Susu Mills WPtel: [phone] (10 min) Simple 04/04/2016 Patient Education: Patient Medication Summary Completed 04/04/2016 Patient Education: Hypertension Completed 04/04/2016 Visit Plan: Pneumonia-cough- improv ing-finish abx and call if symptoms do not completely resolved-patient verbalized understanding of plan. 03/28/2016 Appointment: Susu Mills WPtel: [facility]7 [phone] (30 min) Complex 03/28/2016 Patient Education: Patient Medication Summary Completed 03/28/2016 Patient Education: Obesity Completed 03/28/2016 Visit Plan: Cough-kenalog injection today-start abx as directed-f/u , sooner if needed 03/24/2016 Appointment: Susu Mills WPtel: [phone] (10 min) Simple 03/24/2016 Patient Education: [...] Appointment: Susu Mills WPtel: [phone] (15 min) Moderate 02/13/2016 Patient Education: [...] allergy spray. 08/02/2015 Appointment: Lulu Mann WPtel: [address] [address] [place], [place] [id number] (15 min) Moderate 08/02/2015 Patient Education: Patient [...] Patient Medication Summary Completed 07/31/2014 Patient Education: [facility] - Saving [employer] - Lisinopril - 18+ - Dynamic Portal ID Completed 07/31/2014 Visit Plan: ZIH-heoqeiel-bpjac slig htly elevated-patient tolerated lisinopril 5mg BID well, did not tolerate 10mg daily in the past. Recommend he monitor blood pressure and pulse at home and bring in readings for review. Aortic Stenosis-recommend stress test-refer to Dr Avilez for evaluation Hyperlipidemia-continue statin medication-increase exercise and weight loss-low fat diet. Repeat labs in 3-6 months-Patient verbalized understanding of plan. 03/20/2014 Visit Plan: BGJ-etakkhhu-tnvud slig htly elevated-patient tolerated lisinopril 5mg BID well, did not tolerate 10mg daily in the past. Recommend he monitor blood pressure and pulse at home and bring in readings for review. Aortic Stenosis-recommend stress test-refer to Dr Avilez for evaluation Hyperlipidemia-continue statin medication-increase exercise and weight loss-low fat diet. Repeat labs in 3-6 months-Patient verbalized understanding of plan. Daytime wnhuifqsdwu-salwphr-vnhfsqg-refer for sleep study 03/20/2014 Appointment: Follow up 03/20/2014 Patient Education: Patient Medication Summary Completed 03/20/2014 Care Plan: Referral Order SNOMED-CT : [id number] Ordered 03/20/2014 Visit Plan: Hypertension - uncontro [...] previous physician. 03/01/2014 Appointment: Trina Camacho WPtel: [address] [place], [place] [id number] New Patient 03/01/2014 Patient Education: Patient Medication Summary Completed 03/01/2014 Patient Education: Hypertension Completed 03/01/2014 Referral: Dr Avilez Referral Initiated Instructions Comment . MBJ-mabjofwv-yktns slightly elevated-patient tolerated lisinopril 5mg BID well, did not tolerate 10mg daily in the past. Recommend he monitor blood pressure and pulse at home and bring in readings for review. Aortic Stenosis-recommend stress test-refer to Dr Avilez for evaluation Hyperlipidemia-continue statin medication-increase exercise and weight loss-low fat diet. Repeat labs in 3-6 months-Patient verbalized understanding of plan. . CIS-gtkhldxr-rfuon slightly elevated-patient tolerated lisinopril 5mg BID well, did not tolerate 10mg daily in the past. Recommend he monitor blood pressure and pulse at home and bring in readings for review. Aortic Stenosis-recommend stress test-refer to Dr Avilez for evaluation Hyperlipidemia-continue statin medication-increase exercise and weight loss-low fat diet. Repeat labs in 3-6 months-Patient verbalized understanding of plan. Daytime tithzlvnwtu-akbdjqm-pzquajm-refer for sleep study . Allergies - chroni [...]
--- OUTSIDE RECORDS SUMMARY | 2019-03-16 12:47 | XMS REPORT | Continuity of Care Document ---
Author Organization Unknown Address Unknown Phone Unavailable Allergies Active Description Code Type Severity Reaction Onset Reported/Identified Relationship to Patient Clinical Status Yes Penicillins [id number] Drug Aller gy Mild RASH 12/18/2008 Yes meperidine [id number] Drug Allerg y Severe N/A 05/09/2016 Yes NATO Inhibitors [id number] Dr ug Allergy Unknown N/A 05/09/2016 Yes ibuprofen [id number] Drug Allergy Unknown N/A 05/09/2016 Medications There is no data. Problems Date Dx Coded Attending Type Code Diagnosis Diagnosed By 03/20/2014 OWEN BOJORQUEZ, YANDEL Saha Ot 189.0 03/23/2014 WILLIAM BOJORQUEZ, EARLENE A Ot 396.3 03/23/2014 WILLIAM BOJORQUEZ, EARLENE A Ot 397.0 03/23/2014 WILLIAM BOJORQUEZ, EARLENE A Ot 401.9 03/23/2014 WILLIAM BOJORQUEZ, EARLENE A Ot 785.2 03/23/2014 WILLIAM BOJORQUEZ, EARLENE A Ot 786.09 05/11/2014 Ot 327.23 2014 WILLIAM BOJORQUEZ, EARLENE A Ot 285.9 2014 WILLIAM BOJORQUEZ, EARLENE A Ot 287.5 2014 WILLIAM BOJORQUEZ, EARLENE A Ot 288.60 08/04/2014 WILLIAM BOJORQUEZ, EARLENE A Ot 285.9 08/04/2014 WILLIAM BOJORQUEZ, EARLENE A Ot 287.5 08/04/2014 WILLIAM BOJORQUEZ, EARLENE A Ot 288.60 08/22/2014 KYLE BOJORQUEZ, CHETAN Bradley Ot 562. 10 DIVERTICULOSIS COLON (W/O MENT OF HEMORR 08/22/2014 CHETAN WRIGHT MD Ot V76. 51 SCREEN MAL NEOP-COLON 08/28/2014 Ot 327.23 09/04/2014 WILLIAM BOJORQUEZ, EARLENE Saha Ot 285.9 09/04/2014 WILLIAM BOJORQUEZ, EARLENE A Ot 287.5 09/04/2014 WILLIAM BOJORQUEZ, EARLENE A Ot 288.60 09/25/2014 WILLIAM BOJORQUEZ, EARLENE Saha Ot 396.3 09/25/2014 WILLIAM BOJORQUEZ, EARLENE Saha Ot 397.0 09/25/2014 WILLIAM BOJORQUEZ, EARLENE Saha Ot 401.9 09/25/2014 WILLIAM BOJORQUEZ, EARLENE Saha Ot 785.2 09/25/2014 WILLIAM BOJORQUEZ, EARLENE Saha Ot 786.09 01/10/2015 OWEN BOJORQUEZ, YANDEL A Ot Z08 01/10/2015 OWEN BOJORQUEZ, YANDEL A Ot Z85.5 28 01/10/2015 OWEN BOJORQUEZ, YANDEL A Ot Z90.5 01/18/2015 OWEN BOJORQUEZ, YANDEL A Ot Z08 01/18/2015 OWEN BOJORQUEZ, YANDEL A Ot Z85.5 28 01/18/2015 OWEN BOJORQUEZ, YANDEL A Ot Z90.5 06/29/2015 JEIMY BOJORQUEZ, HELLEN Munoz Ot E78. 2 MIXED HYPERLIPIDEMIA 06/29/2015 JEIMY BOJORQUEZ, HELLEN Munoz Ot I10 ESSENTIAL (PRIMARY) HYPERTENSION 06/29/2015 JEIMY BOJORQUEZ, HELLEN Munoz Ot I34. 0 NONRHEUMATIC MITRAL (VALVE) INSUFFICIENC 06/29/2015 HELLEN MUNSON MD Ot I35. 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 84 EXAM PRE-OPERATIVE NOS 12/27/2015 OWEN BOJORQUEZ, YANDEL Saha Ot Z08 ENCNTR FOR FOLLOW-UP EXAM AFTER TRTMT FO 12/27/2015 YANDEL WEAVER MD Ot Z85.5 28 PERSONAL HISTORY OF OTHER MALIGNANT NEOP 12/27/2015 YANDEL WEAVER MD Ot Z90.5 ACQUIRED ABSENCE OF KIDNEY 12/27/2015 JEIMY BOJORQUEZ, HELLEN Munoz Ot E78. 2 MIXED HYPERLIPIDEMIA 12/27/2015 HELLEN MUNSON MD Ot I10 ESSENTIAL (PRIMARY) HYPERTENSION 12/27/2015 HELLEN MUNSON MD Ot I34. 0 NONRHEUMATIC MITRAL (VALVE) INSUFFICIENC 12/27/2015 HELLEN MUNSON MD Ot I35. 0 NONRHEUMATIC AORTIC (VALVE) STENOSIS 12/28/2015 YANDEL WEAVER MD Ot C61 MALIGNANT NEOPLASM OF PROSTATE 12/28/2015 YANDEL WEAVER MD Ot C64.1 MALIGNANT NEOPLASM OF RIGHT KIDNEY, EXCE 12/28/2015 YANDEL WEAVER MD Ot Z90.5 ACQUIRED ABSENCE OF KIDNEY 12/28/2015 YANDEL WEAVER MD Ot C61 MALIGNANT NEOPLASM OF PROSTATE 12/28/2015 YANDEL WEAVER MD Ot C64.1 MALIGNANT NEOPLASM OF RIGHT KIDNEY, EXCE 12/28/2015 YANDEL WEAVER MD Ot Z90.5 ACQUIRED ABSENCE OF KIDNEY 01/10/2016 YANDEL WEAVER MD Ot C61 MALIGNANT NEOPLASM OF PROSTATE 01/10/2016 YANDEL WEAVER MD Ot C64.1 MALIGNANT NEOPLASM OF RIGHT KIDNEY, EXCE 01/10/2016 YANDEL WEAVER MD Ot Z90.5 ACQUIRED ABSENCE OF KIDNEY 01/17/2016 YANDEL WEAVER MD Ot C61 MALIGNANT NEOPLASM OF PROSTATE 01/17/2016 YANDEL WEAVER MD Ot C64.1 MALIGNANT NEOPLASM OF RIGHT KIDNEY, EXCE 01/17/2016 YANDEL WEAVER MD Ot Z90.5 ACQUIRED ABSENCE OF KIDNEY 04/04/2016 ADOLFO BAKER LEAD CASTER HELPER Ot R05 COUGH 04/04/2016 ADOLFO BAKER LEAD CASTER HELPER Ot R06.02 SHORTNESS OF BREATH 04/17/2016 ADOLFO BAKER LEAD CASTER HELPER Ot R05 COUGH 04/17/2016 BAKERADOLFO LEAD CASTER HELPER Ot R06.02 SHORTNESS OF BREATH 05/12/2016 EARLENE THOMAS MD Ot I1 0 ESSENTIAL (PRIMARY) HYPERTENSION 05/12/2016 EARLENE THOMAS MD Ot J18.9 PNEUMONIA, UNSPECIFIED ORGANISM 05/12/2016 EARLENE THOMAS MD, Ot J4 0 BRONCHITIS, NOT SPECIFIED ACUTE OR CH 05/12/2016 EARLENE THOMAS MD Ot K80.20 CALCULUS OF GALLBLADDER W/O CHOLECYSTITI 05/12/2016 EARLENE THOMAS MD Ot M19.90 UNSPECIFIED OSTEOARTHRITIS, UNSPECIFIED 05/12/2016 EARLENE THOMAS MD Ot R0 5 COUGH 05/12/2016 EARLENE THOMAS MD Ot R09.02 HYPOXEMIA 07/31/2016 HELLEN MUNSON MD Ot E78. 2 MIXED HYPERLIPIDEMIA 07/31/2016 HELLEN MUNSON MD Ot I10 ESSENTIAL (PRIMARY) HYPERTENSION 07/31/2016 HELLEN MUNSON MD Ot I34. 0 NONRHEUMATIC MITRAL (VALVE) INSUFFICIENC 07/31/2016 HELLEN MUNSON MD Ot I35. 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 84 EXAM PRE-OPERATIVE NOS 08/30/2018 YANDEL WEAVER MD, Ot Z08 ENCNTR FOR FOLLOW-UP EXAM AFTER TRTMT FO 08/30/2018 YANDEL WEAVER MD Ot Z85.5 28 PERSONAL HISTORY OF OTHER MALIGNANT NEOP 08/30/2018 YANDEL WEAVER MD, Ot Z90.5 ACQUIRED ABSENCE OF KIDNEY 08/30/2018 HELLEN MUNSON MD Ot E78. 2 MIXED HYPERLIPIDEMIA 08/30/2018 HELLEN MUNSON MD Ot I10 ESSENTIAL (PRIMARY) HYPERTENSION 08/30/2018 HELLEN MUNSON MD Ot I34. 0 NONRHEUMATIC MITRAL (VALVE) INSUFFICIENC 08/30/2018 HELLEN MUNSON MD Ot I35. 0 NONRHEUMATIC AORTIC (VALVE) STENOSIS 08/30/2018 YANDEL WEVAER MD Ot C61 MALIGNANT NEOPLASM OF PROSTATE 08/30/2018 YANDEL WEAVER MD Ot C64.1 MALIGNANT NEOPLASM OF RIGHT KIDNEY, EXCE 08/30/2018 YANDEL WEAVER MD, Ot Z90.5 ACQUIRED ABSENCE OF KIDNEY 08/30/2018 ADOLFO BAKER LEAD CASTER HELPER Ot R05 COUGH 08/30/2018 ADOLFO BAKER LEAD CASTER HELPER Ot R06.02 SHORTNESS OF BREATH 08/30/2018 HELLEN MUNSON MD Ot E78. 2 MIXED HYPERLIPIDEMIA 08/30/2018 HELLEN MUNSON MD Ot I10 ESSENTIAL (PRIMARY) HYPERTENSION 08/30/2018 HELLEN MUNSON MD Ot I34. 0 NONRHEUMATIC MITRAL (VALVE) INSUFFICIENC 08/30/2018 HELLEN MUNSON MD Ot I35. 0 NONRHEUMATIC AORTIC (VALVE) STENOSIS 08/30/2018 FAY DO KELLY K Ot G47.30 SLEEP APNEA, UNSPECIFIED 08/30/2018 FAY DO, KELLY K Ot I10 ESSENTIAL (PRIMARY) HYPERTENSION 08/30/2018 FAY DO, KELLY K Ot M10.9 GOUT, UNSPECIFIED 08/30/2018 FAY DO, KELLY K Ot N28.9 DISORDER OF KIDNEY AND URETER, UNSPECIFI 08/30/2018 FAY KELLY Regino Ot N39.0 URINARY TRACT INFECTION, SITE NOT SPECIF 08/30/2018 FAY FUNMILAYOA Regino Ot R10.32 LEFT LOWER QUADRANT PAIN 08/30/2018 FAY FUNMILAYO SOLARESA Regino Ot Z79.51 REGULATORY AFFAIRS COORDINATOR (CURRENT) USE OF INHALED STERO 08/30/2018 FAY KELLY Ot Z79.52 RESIDENTIAL (CURRENT) USE OF SYSTEMIC STER 08/30/2018 FAY DOKELLY Ot Z85.46 PERSONAL HISTORY OF MALIGNANT NEOPLASM O 08/30/2018 FAY KELLY SOLARES Ot Z85.528 PERSONAL HISTORY OF OTHER MALIGNANT NEOP 08/30/2018 FAY KELLY SOLARES Ot Z87.01 PERSONAL HISTORY OF PNEUMONIA (RECURRENT 08/30/2018 FAY KELLY SOLARES Ot Z87.19 PERSONAL HISTORY OF OTHER DISEASES OF TH 08/30/2018 FAY KELLY SOLARES Ot Z87.891 PERSONAL HISTORY OF NICOTINE DEPENDENCE 08/30/2018 FAY KELLY SOLARES Ot Z88.0 ALLERGY STATUS TO PENICILLIN 08/30/2018 FAY KELLY SOLARES Ot Z88.6 ALLERGY STATUS TO ANALGESIC AGENT STATUS 08/30/2018 FAY KELLY SOLARES Ot Z88.8 ALLERGY STATUS TO OTH DRUG/MEDS/BIOL SUB 08/30/2018 FAY FUNMILAYO SOLARESA Regino Ot Z90.5 ACQUIRED ABSENCE OF KIDNEY 08/30/2018 FAY FUNMILAYO SOLARESA K Ot Z90.79 ACQUIRED ABSENCE OF OTHER GENITAL ORGAN( 08/30/2018 FAY KELLY SOLARES Ot Z98.890 OTHER SPECIFIED POSTPROCEDURAL STATES 09/01/2018 FAY FUNMILAYO SOLARESA Regino Ot G47.30 SLEEP APNEA, UNSPECIFIED 09/01/2018 FAY DO KELLY K Ot I10 ESSENTIAL (PRIMARY) HYPERTENSION 09/01/2018 FUNMILAYO APONTE DOA Regino Ot M10.9 GOUT, UNSPECIFIED 09/01/2018 FAY DO KELLY K Ot N28.9 DISORDER OF KIDNEY AND URETER, UNSPECIFI 09/01/2018 FAY DOFUNMILAYOA K Ot N39.0 URINARY TRACT INFECTION, SITE NOT SPECIF 09/01/2018 FAY KELLY SOLARES Ot R10.32 LEFT LOWER QUADRANT PAIN 09/01/2018 KELLY APONTE DO Ot Z79.51 REGULATORY AFFAIRS COORDINATOR (CURRENT) USE OF INHALED STERO 09/01/2018 KELLY APONTE DO Ot Z79.52 REGULATORY AFFAIRS COORDINATOR (CURRENT) USE OF SYSTEMIC STER 09/01/2018 KELLY APONTE DO Ot Z85.46 PERSONAL HISTORY OF MALIGNANT NEOPLASM O 09/01/2018 KELLY APONTE DO Ot Z85.528 PERSONAL HISTORY OF OTHER MALIGNANT NEOP 09/01/2018 FAY KELLY Lacy Ot Z87.01 PERSONAL HISTORY OF PNEUMONIA (RECURRENT 09/01/2018 FAY KELLY K Ot Z87.19 PERSONAL HISTORY OF OTHER DISEASES OF TH 09/01/2018 KELLY APONTE DO Ot Z87.891 PERSONAL HISTORY OF NICOTINE DEPENDENCE 09/01/2018 FAY KELLY SOLARES Ot Z88.0 ALLERGY STATUS TO PENICILLIN 09/01/2018 FAY KELLY Lacy Ot Z88.6 ALLERGY STATUS TO ANALGESIC AGENT STATUS 09/01/2018 FAY KELLY Lacy Ot Z88.8 ALLERGY STATUS TO OTH DRUG/MEDS/BIOL SUB 09/01/2018 FAY SOLARES KELLY Lacy Ot Z90.5 ACQUIRED ABSENCE OF KIDNEY 09/01/2018 KELLY APONTE DO K Ot Z90.79 ACQUIRED ABSENCE OF OTHER GENITAL ORGAN( 09/01/2018 FAY KELLY SOLARES Ot Z98.890 OTHER SPECIFIED POSTPROCEDURAL STATES 02/16/2019 CHETAN WRIGHT MD Ot Z01.818 ENCOUNTER FOR OTHER PREPROCEDURAL EXAMIN 03/11/2019 CHETAN WRIGHT MD Ot D12. 2 BENIGN NEOPLASM OF ASCENDING COLON 03/11/2019 CHETAN WRIGHT MD Ot D12. 3 BENIGN NEOPLASM OF TRANSVERSE COLON 03/11/2019 CHETAN WRIGHT MD Ot E66. 9 OBESITY, UNSPECIFIED 03/11/2019 CHETAN WRIGHT MD Ot E78. 5 HYPERLIPIDEMIA, UNSPECIFIED 03/11/2019 CHETAN WRIGHT MD Ot G47. 33 OBSTRUCTIVE SLEEP APNEA (ADULT) (PEDIATR 03/11/2019 CHETAN WRIGHT MD Ot I10 ESSENTIAL (PRIMARY) HYPERTENSION 03/11/2019 CHETAN WRIGHT MD Ot K57. 30 DVRTCLOS OF LG INT W/O PERFORATION OR AB 03/11/2019 CHETAN WRIGHT MD, Ot M10. 9 GOUT, UNSPECIFIED 03/11/2019 CHETAN WRIGHT MD, Ot Z80. 0 FAMILY HISTORY OF MALIGNANT NEOPLASM OF 03/11/2019 CHETAN WRIGHT MD, Ot Z85. 53 PERSONAL HISTORY OF MALIGNANT NEOPLASM O 03/11/2019 CHETAN WRIGHT MD, Ot Z87.891 PERSONAL HISTORY OF NICOTINE DEPENDENCE 03/11/2019 CHETAN WRIGHT MD, Ot Z88. 0 ALLERGY STATUS TO PENICILLIN 03/11/2019 CHETAN WRIGHT MD, Ot Z88. 8 ALLERGY STATUS TO OTH DRUG/MEDS/BIOL SUB 03/11/2019 CHETAN WRIGHT MD, Ot Z90. 5 ACQUIRED ABSENCE OF KIDNEY 03/11/2019 CHETAN WRIGHT MD, Ot Z90. 79 ACQUIRED ABSENCE OF OTHER GENITAL ORGAN( Procedures There is no data. Results Test Result Range Sputum Gram stain - 05/09/16 12:45 GRAM STAIN SPUTUM AND MIXED BACTERIAL ERVIN NRG Bacterial sputum culture - 05/09/16 12:4 5 FREE TEXT EXTERNAL BETA LACTAMASE POSITIVE NRG QUANTITY OF GROWTH Moderate Growth NRG FREE TEXT ENTRY 2 PLUS NORMAL ERVIN NRG Bacterial sputum culture [id number] NR Complete blood count (CBC) with automate d white blood cell (WBC) differential - 05/09/16 12:48 Blood leukocytes automated count (number/volume) 9.4 10*3/uL 4.3-11.0 Blood erythrocytes automated count (number/volume) 4.71 10*6/uL 4.35-5.85 Venous blood hemoglobin measurement (mass/volume) 15.1 g/dL 13.3-17.7 Blood hematocrit (volume fraction) 44 % 40-54 Automated erythrocyte mean corpuscular volume 93 [ foz_us] 80-99 Automated erythrocyte mean corpuscular h emoglobin (mass per erythrocyte) 32 pg 25-34 Automated erythrocyte mean corpuscular h emoglobin concentration measurement (mass/volume) 34 g/dL 32-36 Automated erythrocyte distribution width ratio 13. 9 % 10.0- 14.5 Automated blood platelet count (count/volume) 166 10*3/uL 130-400 Automated blood platelet mean volume measurement 11.7 [foz_us] 7.4-10.4 Automated blood neutrophils/100 leukocytes 64 % 42-75 Automated blood lymphocytes/100 leukocytes 24 % 12-44 Blood monocytes/100 leukocytes 6 % 0-12 Automated blood eosinophils/100 leukocytes 6 % 0-10 Automated blood basophils/100 leukocytes 1 % 0-10 Blood neutrophils automated count (number/volume) 6.0 10*3 1.8-7.8 Blood lymphocytes automated count (number/volume) 2.2 10*3 1.0-4.0 Blood monocytes automated count (number/volume) 0. 6 10*3 0.0-1.0 Automated eosinophil count 0.5 10*3/uL 0 .0-0.3 Automated blood basophil count (count/volume) 0.1 10*3/uL 0.0-0.1 Blood lactic acid measurement (moles/vol ume) - 05/09/16 12:48 Blood lactic acid measurement (moles/volume) 1.2 m mol/L 0.5- 2.0 Comprehensive metabolic panel - 05/09/16 12:48 Serum or plasma sodium measurement (moles/volume) 138 mmol/L 135-145 Serum or plasma potassium measurement (moles/volume) 5.2 mmol/L 3.6-5.0 Serum or plasma chloride measurement (moles/volume) 103 mmol/L 98-107 Carbon dioxide 27 mmol/L 21-32 Serum or plasma anion gap determination (moles/volume) 8 mmol/L 5-14 Serum or plasma urea nitrogen measurement (mass/volume ) 21 mg/dL 7-18 Serum or plasma creatinine measurement (mass/volume) 1.36 mg/dL 0.60-1.30 Serum or plasma urea nitrogen/creatinine mass ratio 15 NRG Serum or plasma creatinine measurement w ith calculation of estimated glomerular filtration rate 52 NRG Serum or plasma glucose measurement (mass/volume) 94 mg/dL 70-105 Serum or plasma calcium measurement (mass/volume) 9.8 mg/dL 8.5-10.1 Serum or plasma total bilirubin measurement (mass/volu me) 0.4 mg/dL 0.1-1.0 Serum or plasma alkaline phosphatase wendy surement (enzymatic activity/volume) 74 U/L 40-136 Serum or plasma aspartate aminotransfera se measurement (enzymatic activity/volume) 28 U/L 5-34 Serum or plasma alanine aminotransferase measurement (enzymatic activity/volume) 27 U/L 0-55 Serum or plasma protein measurement (mass/volume) 7.9 g/dL 6.4-8.2 Serum or plasma albumin measurement (mass/volume) 4.3 g/dL 3.2-4.5 Bacterial blood culture - 05/09/16 12:48 Bacterial blood culture NG NRG Bacterial blood culture - 05/09/16 13:00 Bacterial blood culture NG NRG Whole blood basic metabolic panel - 04/17 07/30 03:46 Serum or plasma sodium measurement (moles/volume) 136 mmol/L 135-145 Serum or plasma potassium measurement (moles/volume) 5.3 mmol/L 3.6-5.0 Serum or plasma chloride measurement (moles/volume) 104 mmol/L 98-107 Carbon dioxide 19 mmol/L 21-32 Serum or plasma anion gap determination (moles/volume) 13 mmol/L 5-14 Serum or plasma urea nitrogen measurement (mass/volume ) 26 mg/dL 7-18 Serum or plasma creatinine measurement (mass/volume) 1.36 mg/dL 0.60-1.30 Serum or plasma urea nitrogen/creatinine mass ratio 19 NRG Serum or plasma creatinine measurement w ith calculation of estimated glomerular filtration rate 52 NRG Serum or plasma glucose measurement (mass/volume) 152 mg/dL 70-105 Serum or plasma calcium measurement (mass/volume) 9.1 mg/dL 8.5-10.1 Automated blood complete blood count (he mogram) panel - 05/10/16 03:56 Blood leukocytes automated count (number/volume) 8.2 10*3/uL 4.3-11.0 Blood erythrocytes automated count (number/volume) 4.38 10*6/uL 4.35-5.85 Venous blood hemoglobin measurement (mass/volume) 14.1 g/dL 13.3-17.7 Blood hematocrit (volume fraction) 41 % 40-54 Automated erythrocyte mean corpuscular volume 93 [ foz_us] 80-99 Automated erythrocyte mean corpuscular h emoglobin (mass per erythrocyte) 32 pg 25-34 Automated erythrocyte mean corpuscular h emoglobin concentration measurement (mass/volume) 35 g/dL 32-36 Automated erythrocyte distribution width ratio 13. 7 % 10.0- 14.5 Automated blood platelet count (count/volume) 159 10*3/uL 130-400 Automated blood platelet mean volume measurement 12.4 [foz_us] 7.4-10.4 Automated blood complete blood count (he mogram) panel - 05/11/16 04:21 Blood leukocytes automated count (number/volume) 18.6 10*3/uL 4.3-11.0 Blood erythrocytes automated count (number/volume) 4.13 10*6/uL 4.35-5.85 Venous blood hemoglobin measurement (mass/volume) 13.2 g/dL 13.3-17.7 Blood hematocrit (volume fraction) 39 % 40-54 Automated erythrocyte mean corpuscular volume 95 [ foz_us] 80-99 Automated erythrocyte mean corpuscular h emoglobin (mass per erythrocyte) 32 pg 25-34 Automated erythrocyte mean corpuscular h emoglobin concentration measurement (mass/volume) 34 g/dL 32-36 Automated erythrocyte distribution width ratio 14. 3 % 10.0- 14.5 Automated blood platelet count (count/volume) 152 10*3/uL 130-400 Automated blood platelet mean volume measurement 12.2 [foz_us] 7.4-10.4 Whole blood basic metabolic panel - 04/17 08/30 04:21 Serum or plasma sodium measurement (moles/volume) 139 mmol/L 135-145 Serum or plasma potassium measurement (moles/volume) 5.2 mmol/L 3.6-5.0 Serum or plasma chloride measurement (moles/volume) 111 mmol/L 98-107 Carbon dioxide 19 mmol/L 21-32 Serum or plasma anion gap determination (moles/volume) 9 mmol/L 5-14 Serum or plasma urea nitrogen measurement (mass/volume ) 26 mg/dL 7-18 Serum or plasma creatinine measurement (mass/volume) 1.40 mg/dL 0.60-1.30 Serum or plasma urea nitrogen/creatinine mass ratio 19 NRG Serum or plasma creatinine measurement w ith calculation of estimated glomerular filtration rate 50 NRG Serum or plasma glucose measurement (mass/volume) 147 mg/dL 70-105 Serum or plasma calcium measurement (mass/volume) 8.6 mg/dL 8.5-10.1 Complete blood count (CBC) with automate d white blood cell (WBC) differential - 05/12/16 04:10 Blood leukocytes automated count (number/volume) 19.2 10*3/uL 4.3-11.0 Blood erythrocytes automated count (number/volume) 4.28 10*6/uL 4.35-5.85 Venous blood hemoglobin measurement (mass/volume) 13.7 g/dL 13.3-17.7 Blood hematocrit (volume fraction) 41 % 40-54 Automated erythrocyte mean corpuscular volume 95 [ foz_us] 80-99 Automated erythrocyte mean corpuscular h emoglobin (mass per erythrocyte) 32 pg 25-34 Automated erythrocyte mean corpuscular h emoglobin concentration measurement (mass/volume) 34 g/dL 32-36 Automated erythrocyte distribution width ratio 14. 5 % 10.0- 14.5 Automated blood platelet count (count/volume) 167 10*3/uL 130-400 Automated blood platelet mean volume measurement 12.6 [foz_us] 7.4-10.4 Automated blood neutrophils/100 leukocytes 92 % 42-75 Automated blood lymphocytes/100 leukocytes 6 % 12-44 Blood monocytes/100 leukocytes 1 % 0-12 Automated blood eosinophils/100 leukocytes 0 % 0-10 Automated blood basophils/100 leukocytes 0 % 0-10 Blood neutrophils automated count (number/volume) 17.8 10*3 1.8-7.8 Blood lymphocytes automated count (number/volume) 1.2 10*3 1.0-4.0 Blood monocytes automated count (number/volume) 0. 3 10*3 0.0-1.0 Automated eosinophil count 0.0 10*3/uL 0 .0-0.3 Automated blood basophil count (count/volume) 0.0 10*3/uL 0.0-0.1 Whole blood basic metabolic panel - 04/17 09/29 04:10 Serum or plasma sodium measurement (moles/volume) 140 mmol/L 135-145 Serum or plasma potassium measurement (moles/volume) 4.3 mmol/L 3.6-5.0 Serum or plasma chloride measurement (moles/volume) 112 mmol/L 98-107 Carbon dioxide 15 mmol/L 21-32 Serum or plasma anion gap determination (moles/volume) 13 mmol/L 5-14 Serum or plasma urea nitrogen measurement (mass/volume ) 25 mg/dL 7-18 Serum or plasma creatinine measurement (mass/volume) 1.38 mg/dL 0.60-1.30 Serum or plasma urea nitrogen/creatinine mass ratio 18 NRG Serum or plasma creatinine measurement w ith calculation of estimated glomerular filtration rate 51 NRG Serum or plasma glucose measurement (mass/volume) 138 mg/dL 70-105 Serum or plasma calcium measurement (mass/volume) 8.3 mg/dL 8.5-10.1 Blood manual differential performed dete ction - 05/12/16 04:10 Blood monocytes/100 leukocytes 1 % NRG Manual blood segmented neutrophils/100 leukocytes 88 % NRG Blood band neutrophils/100 leukocytes 6 % NRG Manual blood lymphocytes/100 leukocytes 5 % NRG Blood erythrocyte morphology finding identification NORMAL NRG Complete blood count (CBC) with automate d white blood cell (WBC) differential - 08/30/18 19:40 Blood leukocytes automated count (number/volume) 15.0 10*3/uL 4.3-11.0 Blood erythrocytes automated count (number/volume) 4.43 10*6/uL 4.35-5.85 Venous blood hemoglobin measurement (mass/volume) 14.5 g/dL 13.3-17.7 Blood hematocrit (volume fraction) 42 % 40-54 Automated erythrocyte mean corpuscular volume 96 [ foz_us] 80-99 Automated erythrocyte mean corpuscular h emoglobin (mass per erythrocyte) 33 pg 25-34 Automated erythrocyte mean corpuscular h emoglobin concentration measurement (mass/volume) 34 g/dL 32-36 Automated erythrocyte distribution width ratio 13. 9 % 10.0- 14.5 Automated blood platelet count (count/volume) 136 10*3/uL 130-400 Automated blood platelet mean volume measurement 12.0 [foz_us] 7.4-10.4 Automated blood neutrophils/100 leukocytes 83 % 42-75 Automated blood lymphocytes/100 leukocytes 11 % 12-44 Blood monocytes/100 leukocytes 6 % 0-12 Automated blood eosinophils/100 leukocytes 0 % 0-10 Automated blood basophils/100 leukocytes 0 % 0-10 Blood neutrophils automated count (number/volume) 12.5 10*3 1.8-7.8 Blood lymphocytes automated count (number/volume) 1.6 10*3 1.0-4.0 Blood monocytes automated count (number/volume) 0. 9 10*3 0.0-1.0 Automated eosinophil count 0.1 10*3/uL 0 .0-0.3 Automated blood basophil count (count/volume) 0.0 10*3/uL 0.0-0.1 Comprehensive metabolic panel - 08/30/18 19:40 Serum or plasma sodium measurement (moles/volume) 136 mmol/L 135-145 Serum or plasma potassium measurement (moles/volume) 4.2 mmol/L 3.6-5.0 Serum or plasma chloride measurement (moles/volume) 99 mmol/L 98-107 Carbon dioxide 25 mmol/L 21-32 Serum or plasma anion gap determination (moles/volume) 12 mmol/L 5-14 Serum or plasma urea nitrogen measurement (mass/volume ) 17 mg/dL 7-18 Serum or plasma creatinine measurement (mass/volume) 1.42 mg/dL 0.60-1.30 Serum or plasma urea nitrogen/creatinine mass ratio 12 NRG Serum or plasma creatinine measurement w ith calculation of estimated glomerular filtration rate 49 NRG Serum or plasma glucose measurement (mass/volume) 106 mg/dL 70-105 Serum or plasma calcium measurement (mass/volume) 9.4 mg/dL 8.5-10.1 Serum or plasma total bilirubin measurement (mass/volu me) 0.5 mg/dL 0.1-1.0 Serum or plasma alkaline phosphatase wendy surement (enzymatic activity/volume) 95 U/L 40-136 Serum or plasma aspartate aminotransfera se measurement (enzymatic activity/volume) 24 U/L 5-34 Serum or plasma alanine aminotransferase measurement (enzymatic activity/volume) 24 U/L 0-55 Serum or plasma protein measurement (mass/volume) 7.8 g/dL 6.4-8.2 Serum or plasma albumin measurement (mass/volume) 4.2 g/dL 3.2-4.5 CALCIUM CORRECTED 9.2 mg/dL 8.5-10.1 Serum or plasma amylase measurement (enz ymatic activity/volume) - 08/30/18 19:40 Serum or plasma amylase measurement (enzymatic activit y/volume) 35 U/L 25-125 Lipase - 08/30/18 19:40 Lipase 19 U/L 8-78 Manual absolute plasma cell count - 08/14 10/01 19:40 Blood monocytes/100 leukocytes 5 % NRG Manual blood segmented neutrophils/100 leukocytes 80 % NRG Blood band neutrophils/100 leukocytes 3 % NRG Manual blood lymphocytes/100 leukocytes 12 % NRG Manual eosinophils/100 leukocytes in nose 0 % NRG Manual blood basophils/100 leukocytes 0 % NRG Blood erythrocyte morphology finding identification NORMAL NRG Complete urinalysis with reflex to cultu re - 08/30/18 19:49 Urine color determination YELLOW NRG Urine clarity determination MUCOUS NR G Urine pH measurement by test strip 6 5-9 Specific gravity of urine by test strip 1.010 1.016-1.022 Urine protein assay by test strip, semi-quantitative 3+ NEGATIVE Urine glucose detection by automated test strip NE GATIVE NEGATIVE Erythrocytes detection in urine sediment by light micr oscopy 4+ NEGATIVE Urine ketones detection by automated test strip NE GATIVE NEGATIVE Urine nitrite detection by test strip NEGATIVE NEGATIVE Urine total bilirubin detection by test strip NEGA TIVE NEGATIVE Urine urobilinogen measurement by automated test strip (mass/volume) NORMAL NORMAL Urine leukocyte esterase detection by dipstick 1+ NEGATIVE Automated urine sediment erythrocyte cou nt by microscopy (number/high power field) TNTC NRG Automated urine sediment leukocyte count by microscopy (number/high power field) > [HPF] NRG Bacteria detection in urine sediment by light microsco py FEW NRG Squamous epithelial cells detection in u rine sediment by light microscopy NONE NRG Crystals detection in urine sediment by light microsco py NONE NRG Casts detection in urine sediment by light microscopy NONE NRG Mucus detection in urine sediment by light microscopy NEGATIVE NRG Complete urinalysis with reflex to culture YES NRG Bacterial urine culture - 08/30/18 19:49 Bacterial urine culture [id number] NRG COLONY COUNT >100,000/ML NRG FTX;REPORTABLE SUSCEPTIBILITY REPORTED 09/01 15:00 NRG Dirithromycin susceptibility test by dis k diffusion - 08/30/18 19:49 Gentamicin susceptibility test by minimum inhibitory c oncentration <= NRG Trimethoprim/sulfamethoxazole susceptibi lity test by minimum inhibitoryconcentration > NRG Levofloxacin susceptibility test by minimum inhibitory concentration <= NRG Ampicillin susceptibility test by minimum inhibitory c oncentration <= NRG Cefazolin susceptibility test by minimum inhibitory co ncentration <= NRG Ceftriaxone susceptibility test by minimum inhibitory concentration <= NRG Ciprofloxacin susceptibility test by minimum inhibitor y concentration <= NRG Meropenem susceptibility test by minimum inhibitory co ncentration <= NRG Nitrofurantoin susceptibility test by mi nimum inhibitory concentration <= NRG Amoxicillin and clavulanate potassium susc SUSAN <= NRG Encounters ACCT No. Visit Date/Time Discharge Status Pt. Type Provider Facility Loc./Unit Complaint [id number] 02/18/2019 09:23:00 019 23:59:59 CLS Outpatient CHETAN WRIGHT MD [facility] ENDO + COLOGUARD [id number] 02/16/2019 05:55:00 019 13:42:00 DIS Outpatient CHETAN WRIGHT MD [facility] PREOP COLONOSCOPY [id number] 08/30/2018 19:30:00 21:22:00 DIS Emergency FAY DO, KELLY K [facility] ER LOWER BACK/L LOWER ABD PAIN/BLOOD IN URINE [id number] 07/10/2016 11:20:00 017 23:59:59 CLS Outpatient HELLEN MUNSON MD [facility] CARD I35.0 [id number] 05/09/2016 11:50:00 18:37:00 DIS Inpatient EARLENE THOMAS MD [facility] 4TH PNEUMONIA [id number] 04/03/2016 12:01:00 017 23:59:59 CLS Outpatient ADOLFO BAKER [employer] [facility] RAD COUGH,SOB [id number] 12/27/2015 09:55:00 016 23:59:59 CLS Outpatient YANDEL WEAVER MD [facility] RAD PROSTATE CA [id number] 05/22/2015 12:29:00 016 23:59:59 CLS Outpatient HELLEN MUNSON MD [facility] CARD AORTIC STENOSIS,HTN,HLP ,MR [id number] 12/27/2014 10:04:00 23:59:59 CLS Outpatient YANDEL WEAVER MD [facility] RAD HX OF RT RENAL CELL CAR CINOMA [id number] 08/22/2014 07:05:00 10:10:00 DIS Outpatient CHETAN WRIGHT MD [facility] SDC SCREENING [id number] 08/17/2014 13:49:00 06/04/2 015 23:59:59 CLS Outpatient KYLE BOJORQUEZ, CHETAN Bradley [facility] PREOP SCREENING [id number] 07/07/2014 13:31:00 015 23:59:59 CLS Outpatient EARLENE THOMAS MD [facility] LAB ELEVATED WBC,LOW RBC,L OW PLATELETS [id number] 03/03/2014 12:42:00 014 23:59:59 CLS Outpatient EARLENE THOMAS MD [facility] CARD HEART MURMUR,HTN [id number] 01/05/2014 08:18:00 014 23:59:59 CLS Outpatient YANDEL WEAVER MD [facility] RAD RENAL CA [id number] 01/07/2013 11:28:00 013 23:59:59 CLS Outpatient YANDEL WEAVER MD [facility] RAD RENAL/PROSTATE CA [id number] 05/03/2014 15:01:00 Document Registration [id number] 01/12/2012 10:43:00 Document Registration [id number] 01/08/2011 10:38:00 Document Registration
== END | disposition home or self-care (01) ==
LOC: ENDO 09:23
PROVIDERS: ATTEND Internal Medicine
DX: D12.3 Benign neoplasm of transverse colon (principal); D12.2 Benign neoplasm of ascending colon; K57.30 Diverticulosis of large intestine without perforation or abscess without bleeding; E78.5 Hyperlipidemia, unspecified; E66.9 Obesity, unspecified; I10 Essential (primary) hypertension; M10.9 Gout, unspecified; G47.33 Obstructive sleep apnea (adult) (pediatric); Z90.5 Acquired absence of kidney; Z85.53 Personal history of malignant neoplasm of renal pelvis; Z87.891 Personal history of nicotine dependence; Z90.79 Acquired absence of other genital organ(s); Z88.0 Allergy status to penicillin; Z88.8 Allergy status to other drugs, medicaments and biological substances; Z80.0 Family history of malignant neoplasm of digestive organs
CPT/HCPCS: 88305

== ENCOUNTER → 2019-11-16 | Outpatient (CLI) | payer MEDICARE, OTHER ==
[~2019-11-16] VITALS: Ht 177 cm; Wt 117.0 kg
[~2019-11-16] MED LIST changes: +CATHETER FLUSH 10 ML SYR IV PRN; -D5 LR IV SOLUTION 1,000 ML IV ONE; -D5 LR IV SOLUTION 1,000 ML IV STA; -LIDOCAINE JELLY 2% 6 ML SYRINGE MM PRN; -LIDOCAINE JELLY 2% 6 ML SYRINGE ONE; -MIDAZOLAM 5 MG/5 ML (VERSED) VIAL IV PRN; -MIDAZOLAM 5 MG/5 ML (VERSED) VIAL ONE; +REGADENOSON 0.4 MG/5 ML SYR (LEXISCAN) IV ONE; -fentaNYL INJECTION 100 MCG/2 ML AMP IVP ONE; -fentaNYL INJECTION 100 MCG/2 ML AMP ONE
[2019-11-16 09:11] VITALS: BP 134/83
--- NOTE | 2019-11-16 13:03 | Cardiology Stress Test Report ---
Stress Test Report Date of Procedure/Referring: Date of Procedure: Nov 16, 2019 PCP Hellen Avilez MD Admitting Physician Trina Camacho MD Indications: Hypertension Baseline Heart Rate: 61 Baseline Blood Pressure: Blood Pressure Systolic: 134 Blood Pressure Diastolic: 83 Baseline Vitals Vital Signs Date Time Temp Pulse Resp B/P (MAP) Pulse Ox O2 Delivery O2 Flow Rate FiO2 11/16/19 09:11 91 134/83 (100) 97 Baseline EKG: Baseline EKG: normal sinus rhythm Summary After explaining the procedure to the patient, he signed a consent and then brought to the stress nuclear laboratory. Patient received 0.4 mg Lexiscan for stress test, ECG, heart rate and blood pressure were monitored continuously. Resting and stress dose of radio tracer were injected, imaging was acquired and reviewed in short axis, horizontal long axis and vertical long axis views. TID: 1.03 SSS: 9 SDS: 2 EF: 66 1. Patient tolerated Lexiscan well 2. Diaphragmatic attenuation with decreased uptake involving the whole inferior wall with mild reversibility 3. Normal left ventricular size, EF 66 percent HELLEN AVILEZ MD Nov 16, 2019 13:03
== END ==
LOC: CARD 07:41
PROVIDERS: ATTEND Internal Medicine Cardiovascular Disease
DX: I08.3 Combined rheumatic disorders of mitral, aortic and tricuspid valves (principal); I10 Essential (primary) hypertension; E78.2 Mixed hyperlipidemia
CPT/HCPCS: 78452; 93017; A9502

== ENCOUNTER → 2019-11-17 | Outpatient (CLI) | payer MEDICARE, OTHER ==
[~2019-11-17] MED LIST changes: -CATHETER FLUSH 10 ML SYR IV PRN; -REGADENOSON 0.4 MG/5 ML SYR (LEXISCAN) IV ONE
== END ==
LOC: CARD 11:00
PROVIDERS: ATTEND Internal Medicine Cardiovascular Disease
DX: E78.2 Mixed hyperlipidemia (principal); I08.3 Combined rheumatic disorders of mitral, aortic and tricuspid valves; I11.9 Hypertensive heart disease without heart failure
CPT/HCPCS: 93306

== ENCOUNTER → 2021-05-20 | Outpatient (CLI) | payer MEDICARE, OTHER ==
[~2021-05-20] MED LIST changes: -LEVO500T80 PO; +LEVO500T81 PO; -LISI-556 PO; +LISI5TAB20 PO
== END ==
LOC: CARD 08:43
PROVIDERS: ATTEND Internal Medicine Cardiovascular Disease
DX: I11.9 Hypertensive heart disease without heart failure (principal); I35.0 Nonrheumatic aortic (valve) stenosis
CPT/HCPCS: 93306

== ENCOUNTER → 2021-11-25 | Outpatient (CLI) | payer MEDICARE, OTHER ==
[~2021-11-25] MED LIST changes: +LEVO-55 PO; -LEVO500T81 PO
== END ==
LOC: CARD 09:34
PROVIDERS: ATTEND Internal Medicine Cardiovascular Disease
DX: I08.0 Rheumatic disorders of both mitral and aortic valves (principal); I11.9 Hypertensive heart disease without heart failure
CPT/HCPCS: 93306

== ENCOUNTER → 2022-05-20 | Outpatient (CLI) | payer MEDICARE, OTHER ==
[~2022-05-20] MED LIST changes: +ALBU8.5H6 IH; -RT-ALBUINH IH
== END ==
LOC: CARD 09:59
PROVIDERS: ATTEND Internal Medicine Cardiovascular Disease
DX: I35.1 Nonrheumatic aortic (valve) insufficiency (principal); I11.9 Hypertensive heart disease without heart failure
CPT/HCPCS: 93306